=== PATIENT | female | born 1965 | race Caucasian/White ===

== ENCOUNTER → 2016-12-09 | Outpatient (CLI) | payer OTHER ==
--- NOTE | 2016-12-09 11:26 | US ---
EXAMINATION TYPE: US liver DATE OF EXAM: 12/09/2016 11:02 AM COMPARISON: Complete abdominal ultrasound August 18, 2011. CLINICAL HISTORY: B18.2 Hep C. Nausea EXAM MEASUREMENTS: Liver Length: 16.2 cm Gallbladder Wall: 0.2 cm CBD: 0.4 cm Right Kidney: 10.9 x 4.0 x 4.1 cm TECHNOLOGIST IMPRESSION: Pancreas: visualized portions appear wnl Liver: appears wnl Gallbladder: no evidence of stones Evidence for sonographic Gustafson's sign: no CBD: wnl Right Kidney: no evidence of hydronephrosis or mass IMPRESSION: No worrisome intrahepatic mass or intrahepatic ductal dilatation is seen.
[2016-12-09 11:57] LABS: Bilirubin, Delta 0.8 mg/dL (0.0-0.2); Total Bilirubin 1.6 mg/dL (0.2-1.3); Total Protein 7.9 g/dL (6.3-8.2)
[2016-12-14 08:21] LABS: HCV Qualitative Result DETECTED (Not detected)
== END | disposition home or self-care (01) ==
LOC: RADUSWWP 10:42
PROVIDERS: ATTEND Internal Medicine Gastroenterology
DX: B18.2 Chronic viral hepatitis C (principal)
CPT/HCPCS: 76705; 80076; 82105; 87522; 87902

== ENCOUNTER 2017-01-16 07:38 | Inpatient (IN) | payer OTHER ==
[2017-01-16] MEDS ORDERED: SODIUM CHLORIDE 0.9% 2,000 ML IV STA (08:20)
[2017-01-16] MEDS ORDERED: SODIUM CHLORIDE 0.9% 1,000 ML IV STA (08:20)
[2017-01-16] MEDS ORDERED: ONDANSETRON 4 MG/2 ML VIAL IVP STA (08:32)
[2017-01-16] MEDS ORDERED: KETOROLAC 30 MG/ML 1 ML VIAL IVP STA (08:32)
--- NOTE | 2017-01-16 08:42 | ED ---
Chest Pain HPI - General Chief Complaint: Chest Pain Stated Complaint: Chest pain Time Seen by Provider: 01/16/17 08:12 Source: patient, RN notes reviewed Mode of arrival: wheelchair Limitations: no limitations - History of Present Illness Initial Comments: This is a 51-year-old female history of COPD who states she had the onset over last 4 days of nausea and vomiting almost every 2 hours. She's had muscle spasms and cramps in her legs she claims is some neck and jaw pain she also states she is pain in the left side of her chest just below the breast 6/10 in severity at its aching in nature. She also complains some abdominal pain mostly upper abdomen. She denies any diarrhea and constipation. She does not believe she is eating any bad food and has not been around anyone that has been sick recently. She has no prior abdominal history with respect to surgery ulcers known gallbladder disease. She does smoke cigarettes she only occasionally drinks. She was concerned she was having symptoms of a heart attack because of nausea vomiting and some low back pain. She has no personal history of heart disease though her mother does. MD Complaint: chest pain, other - Related Data Home Medications Medication Instructions Recorded Confirmed Chlorthalidone 25 mg PO DAILY 02/04/16 06/06/16 Ergocalciferol (Vitamin D2) 100,000 unit PO QMONTH 02/04/16 06/06/16 [Drisdol] HYDROcodone/APAP 10-325MG [[place] 1 tab PO TID 02/04/16 06/06/16 10-325] Lisinopril [Zestril] 20 mg PO DAILY 02/04/16 06/06/16 Omeprazole [PriLOSEC] 20 mg PO DAILY 02/04/16 06/06/16 PARoxetine [Paxil] 20 mg PO DAILY 02/04/16 06/06/16 Potassium Chloride ER [K-Dur 20] 20 meq PO DAILY 02/04/16 06/06/16 QUEtiapine [SEROquel] 50 mg PO HS 02/04/16 06/06/16 amLODIPine [Norvasc] 10 mg PO DAILY 02/04/16 06/06/16 risperiDONE [RisperDAL] 1 mg PO DAILY 06/06/16 06/06/16 Previous Rx's Medication Instructions Recorded ALPRAZolam [Xanax] 0.5 mg PO TID PRN #0 tab 02/06/16 Cephalexin [Keflex] 500 mg PO Q6HR #40 cap 06/06/16 Permethrin 5% Cream [Elimite] 1 applic TOPICAL ONCE #60 gram 06/06/16 hydrOXYzine HCL [Atarax] 25 mg PO TID PRN #15 tab 06/06/16 Ondansetron Odt [Zofran ODT] 4 mg PO Q8HR PRN #15 tab 08/02/16 hydrOXYzine PAMOATE [Vistaril] 1 - 2 tab PO Q6H #30 capsule 08/02/16 Allergies Allergy/AdvReac Type Severity Reaction Status Date / Time No Known Allergies Allergy Verified 01/16/17 08:01 Review of Systems ROS Statement: Those systems with pertinent positive or pertinent negative responses have been documented in the HPI. ROS Other: All systems not noted in ROS Statement are negative. EKG Findings - EKG Results: EKG: interpreted by MARIYA, WNL, sinus rhythm, normal axis, normal QRS, normal ST/ T, no acute changes (Normal sinus rhythm a rate of 83 RI interval 166 QRS duration 96 QT/QTC of 392/[address]-T wave changes.) Past Medical History Past Medical History: COPD, Hypertension Additional Past Medical History / Comment(s): pt stated" i had a seizure on tuesday(no previous hx of seizures) and since then i've been hearing voices at night and during the day i hear buzzing tones like a phone in my ears" History of Any Multi-Drug Resistant Organisms: None Reported Past Surgical History: Tubal Ligation Past Anesthesia/Blood Transfusion Reactions: No Reported Reaction Additional Past Anesthesia/Blood Transfusion Reaction / Comment(s): clausterphobia Past Psychological History: Anxiety, Depression Additional Psychological History / Comment(s): pt currently not working,in past worked in a factory. states currently homeless, since may 2015 has been bouncing back and forth between friends houses. Smoking Status: Current every day smoker Past Alcohol Use History: Abuse Additional Past Alcohol Use History / Comment(s): started smoking at age 12, used to smoke 1 ppd but has cut down to 1/2 ppd. Past Drug Use History: None Reported - Past Family History Father History Unknown: Yes Family Medical History: Cancer Additional Family Medical History / Comment(s): unk type Mother History Unknown: Yes Family Medical History: AFIB, Congestive Heart Failure (CHF), Myocardial Infarction ([place]), Seizure Disorder General Exam - General Exam Comments Initial Comments: This is a well-developed well-nourished awake alert oriented 3 female Limitations: no limitations General appearance: alert, in no apparent distress Head exam: Present: atraumatic, normocephalic, normal inspection Eye exam: Present: normal appearance, PERRL, EOMI. Absent: scleral icterus, conjunctival injection, periorbital swelling ENT exam: Present: mucous membranes dry Neck exam: Present: normal inspection, tenderness (Mild paraspinous trapezius tenderness no spinous process tenderness no meningeal signs), full ROM. Absent : meningismus, lymphadenopathy Respiratory exam: Present: normal lung sounds bilaterally, chest wall tenderness (Reproducible tenderness palpation over the left lower costosternal junction no step-off or crepitation). Absent: respiratory distress, wheezes, rales, rhonchi, stridor Cardiovascular Exam: Present: regular rate, normal rhythm, normal heart sounds. Absent: systolic murmur, diastolic murmur, rubs, gallop, clicks GI/Abdominal exam: Present: soft, tenderness (Mild tennis palpation of the right upper quadrant and epigastrium with no guarding rebound masses or bruits) , normal bowel sounds. Absent: distended, guarding, rebound, rigid Rectal exam: Present: deferred Extremities exam: Present: normal inspection, full ROM, normal capillary refill. Absent: tenderness, pedal edema, joint swelling, calf tenderness Back exam: Present: normal inspection Neurological exam: Present: alert, oriented X3, CN II-XII intact Psychiatric exam: Present: normal affect, normal mood Skin exam: Present: warm, dry, intact, normal color. Absent: rash Course Vital Signs 01/16/17 01/16/17 07:59 09:26 Temperature 98.2 F Pulse Rate 90 81 Respiratory 20 18 Rate Blood Pressure 139/90 108/58 O2 Sat by Pulse 98 95 Oximetry - Reevaluation(s) Reevaluation #1: 01/16/17 10:38 I did reevaluate the patient she remains somewhat lethargic still awake and alert. Reevaluation #2: 01/16/17 10:38 I did discuss the case with Dr. Osman as well as with Dr. Santa. The patient will be started on 3% saline Reevaluation #3: 01/16/17 10:39 Dr. Angelo did come the emergency department to see the patient. Patient will be started on 3% saline at 40 mL an hour with a redraw at 1 PM with notification of Dr. Angelo Chest Pain MDM - MDM I did review the initial imaging and reports ultrasound was pending at this time x-rays are unremarkable. I did discuss findings with the patient and her sodium level is 118 she has had elevated liver enzymes and bilirubin. She does have a known history of hepatitis C she will be admitted for evaluation and hydration. Critical Care Time Critical Care Time: Yes Critical Care Time: 32 minutes of critical care time which includes initial history physical and evaluation the patient with labs and x-rays. Evaluation of the results. Reevaluation the patient response to therapy thus far. Discussion with multiple physicians regarding the disposition and placement of the patient. Review of old charting that was available and documentation of the above. Disposition Clinical Impression: Gastritis, Hyponatremia syndrome, Dehydration Disposition: ADMITTED IP TO THIS [facility] Condition: Serious Referrals: Carlos Manuel Osman MD [Primary Care Provider] - 1-2 days Time of Disposition: 09:45
[2017-01-16 08:57] LABS: Basophils % (A) 0 %; CH 34.3; CHCM 37.3; Eosinophils % (A) 1 %; HDW 2.54; HGB 15.9 gm/dL (11.4-16.0); Luc # (Auto) 0.15; Luc % (Auto) 2; Lymphocytes # (A) 0.9 k/uL (1.0-4.8); Lymphocytes % (A) 15 %; MCH 33.3 pg (25.0-35.0); MCHC 36.1 g/dL (31.0-37.0); MCV 92.3 fL (80.0-100.0); Mean Platelet Volume 8.8; Monocytes # (A) 0.5 k/uL (0-1.0); Monocytes % (A) 8 %; Neutrophils # (A) 4.7 k/uL (1.3-7.7); Neutrophils % (A) 74 %; RBC 4.76 m/uL (3.80-5.40); RDW 13.6 % (11.5-15.5); WBC 6.3 k/uL (3.8-10.6); WBC (Perox) 6.23
[2017-01-16 09:01] LABS: Appearance,Urine Cloudy (Clear); Bacteria,Urine Rare /hpf; Bilirubin,Urine Negative (Negative); Glucose,Urine (UA) Negative (Negative); Ketones,Urine Negative (Negative); Leukocyte Esterase,Urine Negative (Negative); Mucus,Urine Rare /hpf; Nitrite,Urine Negative (Negative); Particle Count 1930; Protein,Urine Negative (Negative); RBC,Urine <1 /hpf (0-5); Specific Gravity,Urine 1.007 (1.001-1.035); Squamous Epithelial Cell,Urine 7 /hpf (0-4); UA Billing (MACRO vs. MICRO) MICRO; Urobilinogen,Urine <2.0 mg/dL (<2.0); WBC,Urine 1 /hpf (0-5)
[2017-01-16 09:07] LABS: ALT 222 U/L (9-52); AST 303 U/L (14-36); Alkaline Phosphatase 110 U/L (38-126); Amylase 76 U/L (30-110); Anion Gap 9 mmol/L; Blood Urea Nitrogen 9 mg/dL (7-17); Calcium 8.4 mg/dL (8.4-10.2); Carbon Dioxide 25 mmol/L (22-30); Chloride 84 mmol/L (98-107); Glucose 114 mg/dL (74-99); Non-African American GFR(MDRD) >60 (>60 ml/min/1.73 sqM); Potassium 3.6 mmol/L (3.5-5.1); Total Bilirubin 2.9 mg/dL (0.2-1.3); Total Protein 8.1 g/dL (6.3-8.2)
[2017-01-16 09:10] LABS: Sodium 118 mmol/L (137-145)
[2017-01-16 09:18] LABS: Creatine Kinase 496 U/L (30-135)
--- NOTE | 2017-01-16 09:18 | XR ---
EXAMINATION TYPE: XR KUB DATE OF EXAM: 01/16/2017 8:56 AM COMPARISON: NONE INDICATION: Abdomen pain TECHNIQUE: Single view abdomen upright view FINDINGS: Nonspecific bowel gas is present. Air is within the colon. Psoas margins are normal. No organomegaly is present. No suspicious calcifications are evident. No free air is identified. IMPRESSION: 1. Nonspecific abdomen.
--- NOTE | 2017-01-16 09:30 | XR ---
EXAMINATION TYPE: XR chest 2V DATE OF EXAM: 01/16/2017 8:56 AM COMPARISON: NONE INDICATION: Abdomen pain TECHNIQUE: 2 view chest FINDINGS: The heart size is normal. The pulmonary vasculature is normal. The lungs are clear. IMPRESSION: 1. No acute pulmonary process.
[2017-01-16 09:31] LABS: Troponin I <0.012 ng/mL (0.000-0.034)
[2017-01-16 09:37] LABS: Creatine Kinase MB 7.6 ng/mL (0.0-2.4)
--- NOTE | 2017-01-16 10:30 | US ---
EXAMINATION TYPE: US gallbladder DATE OF EXAM: 01/16/2017 10:13 AM COMPARISON: NONE CLINICAL HISTORY: Pain. Vomiting, RUQ pain, Hepatitis C EXAM MEASUREMENTS: Liver Length: 17.6 cm Gallbladder Wall: 0.2 cm CBD: 0.3 cm Right Kidney: 11.3 x 4.2 x 5.4 cm Pancreas: limited evaluation due to overlying bowel content, distal talus not well visualized. Liver: appears wnl , mild hepatomegaly at 17.6 cm may be present. Gallbladder: no evidence of stones Evidence for sonographic Gustafson's sign: No CBD: visualized portion appears wnl Right Kidney: no evidence of hydronephrosis IMPRESSION: 1. No suspicious acute changes. Liver is slightly enlarged.
[2017-01-16] MEDS ORDERED: NALOXONE 0.4 MG/ML 1 ML VIAL IV PRN (10:42)
[2017-01-16] MEDS ORDERED: ONDANSETRON 4 MG/2 ML VIAL IVP PRN (10:47)
[2017-01-16] MEDS ORDERED: SODIUM CHLORIDE 3%(HYPERTONIC) 500 ML IV ONE (11:00)
[2017-01-16 11:37] LABS: Glucose,Whole Blood 120 mg/dL (75-99)
[2017-01-16 13:03] VITALS: BMI 41.2
[2017-01-16] MEDS ORDERED: SODIUM CHLORIDE 0.9% 1,000 ML IV SCH (14:15)
[2017-01-16] MEDS: HYDROcodone/APAP 5-325MG 1 EACH TAB PO PRN (18:38)
[2017-01-16] MEDS: ALPRAZolam 0.25 MG TAB PO PRN (18:39)
--- NOTE | 2017-01-16 19:24 | P.NPCON ---
History of Present Illness - Reason for Consult hyponatremia - History of Present Illness Reason for consultation: Hyponatremia History of present illness: Patient is a 51 y/o F seen in renal consultation for hyponatremia. Patient presented to the hospital with vomiting and diarrhea going on for the past 3-4 days. States her oral intake was poor. Denies drinking excess amounts of water. Her sodium level on admission was 118. She was started on 3% saline in the ED and repeat sodium is up to 122. She is now on 0.9% saline and 3% has been discontinued. She hasn't had any diarrhea or vomiting while in the hospital. She denies any fever or chills. Denies chest pain or shortness or breath. She is awake and alert. Hemodynamically she is stable. In terms of home medications , she does admit to taking chlorthalidone. No other complaints at this time. She denies any history of renal disease. GFR is at baseline. Vitals: stable. GENERAL: Atraumatic, well-nourished. HEENT: No JVD noted. Mucus membranes moist. HEART: Regular rate or rhythm, no murmurs or gallops. LUNGS: Clear to auscultation, no rhonchi or wheezes. ABDOMEN: Soft, non-tender, no distension. EXTREMITIES: No pitting edema. Past Medical History Past Medical History: COPD, Hypertension Additional Past Medical History / Comment(s): lower back pain from previous injury History of Any Multi-Drug Resistant Organisms: None Reported Past Surgical History: Tubal Ligation Past Anesthesia/Blood Transfusion Reactions: No Reported Reaction Additional Past Anesthesia/Blood Transfusion Reaction / Comment(s): clausterphobia Past Psychological History: Anxiety, Depression Additional Psychological History / Comment(s): . Smoking Status: Current every day smoker Past Alcohol Use History: None Reported Additional Past Alcohol Use History / Comment(s): started smoking at age 12, used to smoke 1 ppd but has cut down to 1/2 ppd. Past Drug Use History: None Reported - Past Family History Father History Unknown: Yes Family Medical History: Cancer Additional Family Medical History / Comment(s): unk type Mother History Unknown: Yes Family Medical History: AFIB, Congestive Heart Failure (CHF), Myocardial Infarction ([place]), Seizure Disorder Medications and Allergies Home Medications Medication Instructions Recorded Confirmed Type Chlorthalidone 25 mg PO DAILY 02/04/16 01/16/17 History Omeprazole [PriLOSEC] 20 mg PO DAILY 02/04/16 01/16/17 History PARoxetine [Paxil] 20 mg PO DAILY 02/04/16 01/16/17 History Potassium Chloride ER [K-Dur 20] 20 meq PO DAILY 02/04/16 01/16/17 History risperiDONE [RisperDAL] 1 mg PO DAILY 06/06/16 01/16/17 History HYDROcodone/APAP 5-325MG [[place] 1 tab PO Q8H PRN 01/16/17 01/16/17 History 5-325] Lisinopril 40 mg PO DAILY 01/16/17 01/16/17 History Allergies Allergy/AdvReac Type Severity Reaction Status Date / Time bupropion [From Wellbutrin] Allergy seizure Verified 01/16/17 13:13 Physical Exam Vitals: Vital Signs Temp Pulse Resp BP Pulse Ox 01/16/17 18:00 78 15 110/67 96 01/16/17 17:00 74 15 119/65 95 01/16/17 16:00 98.0 F 81 16 119/65 95 01/16/17 15:00 88 20 115/72 95 01/16/17 14:00 81 19 95 01/16/17 13:00 78 16 112/65 97 01/16/17 12:00 97.8 F 81 20 111/69 96 01/16/17 11:00 87 18 160/79 95 Intake and Output 01/16/17 01/16/17 01/16/17 06:59 14:59 22:59 Intake Total 2090 740 Output Total 215 950 Balance 1875 -210 Intake: IV 1999 Invasive Line 1 1999 Amount of Fluid Infused ( 10 ml) Intake, IV Titration 80 240 Amount Sodium Chloride 0.9% 1, 240 000 ml @ 60 mls/hr IV . [id number] [facility] Rx#:[id number] Sodium Chloride 3%( 80 Hypertonic) 500 ml @ 40 mls/hr IV .[id number] [facility] Rx #:[id number] Oral 500 Output: Urine 215 950 Uretheral ([place]) 25 Other: Voiding Method Indwelling Catheter Indwelling Catheter Weight 105.5 kg Patient Weight 01/17/17 06:59 Weight 105.5 kg Results - Lab Results Most recent lab results Calcium 8.4 mg/dL (8.4-10.2) 01/16/17 08:37 01/16/17 08:37 01/16/17 13:01 Assessment and Plan Plan: Assessment: #1. Hypovolemic hyponatremia secondary to vomiting and diarrhea and further worsened with chlorthalidone. Sodium level 118 on admission and improved to 122 after 2 hours of 3% saline. #2. Benign hypertension. Controlled. Plan: Continue 0.9% saline to be run at 60 cc/hr. Repeat sodium level at 7 PM today. Hold diuretics. Check urine sodium, potassium, serum and urine osmolality. Maintain martin with strict Is and Os. Goal rate of sodium correction 8 meq per 24 hrs. Thank you for the consultation. I will continue to follow the patient with you during her hospital stay.
[2017-01-16 19:48] LABS: Anion Gap 6 mmol/L; Blood Urea Nitrogen 10 mg/dL (7-17); Carbon Dioxide 27 mmol/L (22-30); Chloride 93 mmol/L (98-107); Glucose 123 mg/dL (74-99); Non-African American GFR(MDRD) >60 (>60 ml/min/1.73 sqM); Sodium 126 mmol/L (137-145)
[2017-01-16 20:06] LABS: Potassium 3.4 mmol/L (3.5-5.1)
[2017-01-16] MEDS ORDERED: DESMOPRESSIN INJ 4 MCG/ML AMP IV ONE (20:42)
[2017-01-16] MEDS: PANTOPRAZOLE 40 MG/10 ML VIAL IV SCH (21:17)
[2017-01-17 04:33] LABS: Basophils % (A) 0 %; CH 33.4; CHCM 35.6; Eosinophils # (A) 0.1 k/uL (0-0.7); Eosinophils % (A) 1 %; HCT 38.9 % (34.0-46.0); HDW 2.49; HGB 13.7 gm/dL (11.4-16.0); Luc # (Auto) 0.12; Luc % (Auto) 3; Lymphocytes # (A) 1.2 k/uL (1.0-4.8); Lymphocytes % (A) 29 %; MCH 33.2 pg (25.0-35.0); MCHC 35.2 g/dL (31.0-37.0); MCV 94.2 fL (80.0-100.0); Mean Platelet Volume 8.5; Monocytes # (A) 0.4 k/uL (0-1.0); Monocytes % (A) 9 %; Neutrophils # (A) 2.3 k/uL (1.3-7.7); Neutrophils % (A) 57 %; RBC 4.13 m/uL (3.80-5.40); RDW 13.4 % (11.5-15.5); WBC (Perox) 3.98
[2017-01-17 05:08] LABS: Anion Gap 3 mmol/L; Blood Urea Nitrogen 10 mg/dL (7-17); Calcium 7.9 mg/dL (8.4-10.2); Carbon Dioxide 28 mmol/L (22-30); Chloride 94 mmol/L (98-107); Glucose 97 mg/dL (74-99); Magnesium 1.8 mg/dL (1.6-2.3); Non-African American GFR(MDRD) >60 (>60 ml/min/1.73 sqM); Sodium 125 mmol/L (137-145)
[2017-01-17 05:21] LABS: Potassium 3.7 mmol/L (3.5-5.1)
[2017-01-17] MEDS ORDERED: Potassium Replacement Protocol 1 EACH MISC MISCELLANE PRN (05:22)
[2017-01-17] MEDS ORDERED: Magnesium Replacement Protocol 1 EACH MISC MISCELLANE PRN (05:23)
[2017-01-17 05:35] LABS: Manual Review Performed
[2017-01-17] MEDS: MAGNESIUM SULFATE-D5W PMX 1 GM in DEXTROSE/WATER 1 100ML.BAG IVPB SCH ×2 (05:48→07:04)
[2017-01-17] MEDS: HYDROcodone/APAP 5-325MG 1 EACH TAB PO PRN ×2 (05:55→16:15)
[2017-01-17] MEDS: ALPRAZolam 0.25 MG TAB PO PRN ×3 (05:55→22:32)
[2017-01-17] MEDS ORDERED: POTASSIUM CHLORIDE ER 20 MEQ TAB.ER PO SCH (06:00)
[2017-01-17] MEDS: PANTOPRAZOLE 40 MG/10 ML VIAL IV SCH (07:57)
--- NOTE | 2017-01-17 09:55 | HP ---
DATE OF ADMISSION: 01/16/2017 CHIEF COMPLAINT: Intractable nausea and vomiting and hyponatremia. HISTORY OF PRESENT ILLNESS: This is the first admission for this 51-year-old white female who started to have nausea and vomiting several days ago. She he no hematemesis, significant pain, fever, chills, etc. She had no diarrhea, melena, hematochezia, etc. She came to the emergency room because she could not stop vomiting, and her sodium was 118, and she is admitted. REVIEW OF SYSTEMS: She has had no headaches, shortness of breath, cough, hemoptysis, urinary complaints etc. Past medical history, family history, and personal and social histories are otherwise unremarkable noncontributory. She takes: 1. [place]. 2. Xanax. 3. Risperdal. 4. Potassium. 5. Lasix. 6. Paxil. The remainder of her history is unremarkable. PHYSICAL EXAMINATION: Blood pressure 111/64 with a pulse of 91, respirations of 35 and she is afebrile. In general, she appeared to be pale and dry. HEENT: Head, ears, eyes, nose, mouth, and throat were normal. NECK: Neck veins not distended. Thyroid was not enlarged. CHEST: Clear. CARDIAC: Normal. ABDOMEN: Soft and nontender. Bowel sounds are present. EXTREMITIES: Normal. NEUROLOGICAL: She is intact. IMPRESSION: 1. Dehydration. 2. Hyponatremia. 3. Gastroenteritis. 4. History of low back pain. 5. Arthritis. PLAN: 1. Bed rest. 2. IV fluids. 3. Correct electrolyte imbalance. 4. Control nausea and vomiting.
--- NOTE | 2017-01-17 10:41 | P.PN ---
Subjective Patient is seen in follow-up for hyponatremia. Sodium level was 118 at the time of admission on January 16 around 8 AM. Patient presented with nausea vomiting and diarrhea going on for the last few days. This appears to have resolved and she is currently tolerating oral intake well. Her GFR is at baseline. She was taking chlorthalidone at home as well. Her sodium level is up to 126 this morning. She is nonoliguric. No active complaints at this time. Vital signs are stable. General: The patient appeared well nourished and normally developed. HEENT: Head exam is unremarkable. Neck is without jugular venous distension. LUNGS: Lungs are clear to auscultation and percussion. Breath sounds decreased. HEART: Rate and Rhythm are regular. First and second heart sounds normal. No murmurs, rubs or gallops. ABDOMEN: Abdominal exam reveals normal bowel sounds. Non-tender and non- distended. No evidence of peritonitis. EXTREMITITES: No clubbing, cyanosis, or edema. Objective - Vital Signs Vital signs: Vital Signs Temp 98.0 F 01/17/17 08:00 Pulse 66 01/17/17 10:00 Resp 20 01/17/17 10:00 BP 107/68 01/17/17 10:00 Pulse Ox 97 01/17/17 10:00 Intake & Output 01/16/17 01/17/17 01/17/17 18:59 06:59 18:59 Intake Total 2830 960 220 Output Total 1165 1315 285 Balance 1665 -355 -65 Weight 105.5 kg 104.9 kg Intake: IV 2000 Invasive Line 1 2000 Amount of Fluid Infused ( 10 ml) Intake, IV Titration 320 60 220 Amount Magnesium Sulfate-D5w Pmx 100 1 gm In Dextrose/Water 1 100ml.bag @ 100 mls/hr IVPB Q1H [facility] Rx#: [id number] Sodium Chloride 0.9% 1, 240 60 120 000 ml @ 60 mls/hr IV . [id number] [facility] Rx#:[id number] Sodium Chloride 3%( 80 Hypertonic) 500 ml @ 40 mls/hr IV .[id number] ONE Rx #:[id number] Oral 500 900 Output: Urine 1165 1315 285 Uretheral ([place]) 25 Other: Voiding Method Indwelling Catheter Indwelling Catheter Indwelling Catheter - Labs CBC & Chem 7: 01/17/17 03:53 01/17/17 08:58 Labs: Abnormal Lab Results - Last 24 Hours (Table) 01/16/17 01/16/17 01/16/17 Range/Units 11:35 13:01 19:20 Plt Count (150-450) k/uL Sodium 122 L 126 L (137-145) mmol/L Potassium 3.4 L (3.5-5.1) mmol/L Chloride 93 L (98-107) mmol/L Glucose 123 H (74-99) mg/dL POC Glucose (mg/dL) 120 H (75-99) mg/dL Osmolality 264 L (280-301) mosm/kg Calcium 8.0 L (8.4-10.2) mg/dL Ur Random Sodium (30-90) mmol/L 01/17/17 01/17/17 01/17/17 Range/Units 01:43 03:53 03:53 Plt Count 93 L (150-450) k/uL Sodium 126 L 125 L (137-145) mmol/L Potassium (3.5-5.1) mmol/L Chloride 94 L (98-107) mmol/L Glucose (74-99) mg/dL POC Glucose (mg/dL) (75-99) mg/dL Osmolality (280-301) mosm/kg Calcium 7.9 L (8.4-10.2) mg/dL Ur Random Sodium (30-90) mmol/L 01/17/17 01/17/17 Range/Units 04:30 08:58 Plt Count (150-450) k/uL Sodium 126 L (137-145) mmol/L Potassium (3.5-5.1) mmol/L Chloride (98-107) mmol/L Glucose (74-99) mg/dL POC Glucose (mg/dL) (75-99) mg/dL Osmolality (280-301) mosm/kg Calcium (8.4-10.2) mg/dL Ur Random Sodium 163 H (30-90) mmol/L Assessment and Plan Plan: Assessment: #1. Hypovolemic hyponatremia secondary to vomiting and diarrhea and further worsened with chlorthalidone. Sodium level 118 on admission and improved to 126 this morning. #2. Benign hypertension. Controlled. Plan: Resume 0.9% saline to be run at 50 cc/hr. Repeat sodium level at 4 PM today. Hold diuretics. Stable to be transferred out of the intensive care unit from nephrology standpoint.
[2017-01-17] MEDS ORDERED: SODIUM CHLORIDE 0.9% 1,000 ML IV SCH (10:45)
[2017-01-17] MEDS: PARoxetine 20 MG TAB PO SCH (13:55)
[2017-01-17 16:58] VITALS: RESP 16
--- NOTE | 2017-01-17 18:53 | P.CNPUL ---
History of Present Illness Consult date: 01/17/17 Chief complaint: Hyponatremia History of present illness: 51-year-old female patient got moved to the intensive care unit because of profound hyponatremia. She presented emergency department with a sodium level CXVIII. Apparently this patient was having issues with vomiting and nausea for the past 24-48 hours. She'll follow-up on multiple occasions and ultimately she was dry heaving. She also had loose watery bowel movements. Upon further inquiry, the patient tells that she ate a outdated salad. Her got slightly sick and she became progressively more sick and she came to the hospital where she was found to be profoundly hyponatremic with a sodium level of 118. No change in mental status. She was started on 3% normal saline and her sodium level came up to 122. At that point the hypertonic saline was discontinued and the patient was placed on normal saline. Her sodium level came up to 126. Currently she is off IV fluids. Neurologically she is doing well. No change in mental status. No headaches. No focal neurological deficits. No abdominal pain. Nausea vomiting has subsided significantly. She is afebrile. No bloody bowel movements. No other complaints otherwise for now. I saw this patient in the intensive care unit. She was quite stable. I made recommendations to move this patient to the medical floor. Note that the patient was also on hydrochlorothiazide that got discontinued. Review of Systems A 12 point review of system was done. The patient had no focal neurological deficits. No slurred speech. No seizure activity. No chest pain. No cough or sputum production. No skin rashes. No arthritis. No falls. No wounds. No trauma. No angina. No bloody urine output or stool. Past Medical History Past Medical History: COPD, Hypertension Additional Past Medical History / Comment(s): lower back pain from previous injury History of Any Multi-Drug Resistant Organisms: None Reported Past Surgical History: Tubal Ligation Past Anesthesia/Blood Transfusion Reactions: No Reported Reaction Additional Past Anesthesia/Blood Transfusion Reaction / Comment(s): clausterphobia Past Psychological History: Anxiety, Depression Additional Psychological History / Comment(s): . Smoking Status: Current every day smoker Past Alcohol Use History: None Reported Additional Past Alcohol Use History / Comment(s): started smoking at age 12, used to smoke 1 ppd but has cut down to 1/2 ppd. Past Drug Use History: None Reported - Past Family History Father History Unknown: Yes Family Medical History: Cancer Additional Family Medical History / Comment(s): unk type Mother History Unknown: Yes Family Medical History: AFIB, Congestive Heart Failure (CHF), Myocardial Infarction ([place]), Seizure Disorder Medications and Allergies Home Medications Medication Instructions Recorded Confirmed Type Chlorthalidone 25 mg PO DAILY 02/04/16 01/16/17 History Omeprazole [PriLOSEC] 20 mg PO DAILY 02/04/16 01/16/17 History PARoxetine [Paxil] 20 mg PO DAILY 02/04/16 01/16/17 History Potassium Chloride ER [K-Dur 20] 20 meq PO DAILY 02/04/16 01/16/17 History risperiDONE [RisperDAL] 1 mg PO DAILY 06/06/16 01/16/17 History HYDROcodone/APAP 5-325MG [[place] 1 tab PO Q8H PRN 01/16/17 01/16/17 History 5-325] Lisinopril 40 mg PO DAILY 01/16/17 01/16/17 History Allergies Allergy/AdvReac Type Severity Reaction Status Date / Time bupropion [From Wellbutrin] Allergy seizure Verified 01/16/17 13:13 Physical Exam Vitals: Vital Signs Temp Pulse Pulse Resp BP BP Pulse Ox 01/17/17 15:00 97.2 F L 62 16 107/58 96 01/17/17 11:00 81 19 107/68 95 01/17/17 10:00 66 20 107/68 97 01/17/17 09:00 80 15 96/56 95 01/17/17 08:00 98.0 F 73 16 96/56 96 01/17/17 07:00 68 18 132/64 95 01/17/17 06:00 96 20 132/64 98 01/17/17 05:00 64 22 119/60 95 01/17/17 04:00 98.2 F 66 18 108/59 97 01/17/17 03:00 77 98 H 99/56 98 01/17/17 02:00 77 20 99/56 98 01/17/17 01:00 63 20 91/51 96 01/17/17 00:05 63 18 92/55 99 01/17/17 00:00 98.0 F 65 16 92/55 99 01/16/17 23:00 68 16 93/48 04/23/17 22:00 82 18 91/57 01/16/17 21:00 85 13 97/55 99 01/16/17 20:00 98.5 F 85 32 H 115/62 98 01/16/17 19:00 81 17 105/70 96 Intake and Output 01/17/17 01/17/17 01/17/17 06:59 14:59 22:59 Intake Total 400 820 Output Total 765 345 700 Balance -365 475 -700 Intake: Intake, IV Titration 280 Amount Magnesium Sulfate-D5w Pmx 100 1 gm In Dextrose/Water 1 100ml.bag @ 100 mls/hr IVPB Q1H [facility] Rx#: [id number] Sodium Chloride 0.9% 1, 180 000 ml @ 60 mls/hr IV . [id number] [facility] Rx#:[id number] Oral 400 540 Output: Urine 765 345 700 Other: Voiding Method Indwelling Catheter Indwelling Catheter Indwelling Catheter Weight 104.9 kg The patient appeared well nourished and normally developed. Vital signs as documented. Head exam is unremarkable. No scleral icterus or corneal arcus noted. Neck is without jugular venous distension, thyromegaly, or carotid bruits. Carotid upstrokes are brisk bilaterally. Lungs are clear to auscultation and percussion. Cardiac exam reveals the PMI to be normally sized and situated. Rhythm is regular. First and second heart sounds normal. No murmurs, rubs or gallops. Abdominal exam reveals normal bowel sounds, no masses , no organomegaly and no aortic enlargement. Extremities are nonedematous and both femoral and pedal pulses are normal. Results - Laboratory Findings CBC and BMP: 01/17/17 03:53 01/17/17 15:33 Abnormal lab findings: Abnormal Labs 01/16/17 01/16/17 01/16/17 11:35 13:01 19:20 Plt Count Sodium 122 L 126 L Potassium 3.4 L Chloride 93 L Glucose 123 H POC Glucose (mg/dL) 120 H Osmolality 264 L Calcium 8.0 L Ur Random Sodium 01/17/17 01/17/17 01/17/17 01:43 03:53 03:53 Plt Count 93 L Sodium 126 L 125 L Potassium Chloride 94 L Glucose POC Glucose (mg/dL) Osmolality Calcium 7.9 L Ur Random Sodium 01/17/17 01/17/17 01/17/17 04:30 08:58 15:33 Plt Count Sodium 126 L 124 L Potassium Chloride Glucose POC Glucose (mg/dL) Osmolality Calcium Ur Random Sodium 163 H - Diagnostic Findings Chest x-ray: image reviewed Assessment and Plan Plan: Assessment 1 hypovolemic hyponatremia exacerbated further by the intake of chlorthalidone, recovering 2 nausea vomiting and diarrhea, rule out food poisoning 3 hypertension 4 smoking Plan Agree on this continued IV fluids. The patient can be moved out of the intensive care unit. Monitor the sodium level. No signs of any neurologic impairment from correction of hyponatremia. Keep the chlorthalidone on hold. We'll continue to follow.
[2017-01-17] MEDS ORDERED: risperiDONE 1 MG TAB PO SCH (21:00)
[2017-01-18] MEDS: PANTOPRAZOLE 40 MG/10 ML VIAL IV SCH ×2 (00:19→08:26)
[2017-01-18] MEDS: HYDROcodone/APAP 5-325MG 1 EACH TAB PO PRN ×2 (00:25→08:26)
[2017-01-18 01:44] LABS: Potassium 24 Hour,Urine 61.7 mmol/24 (25.0-125.0)
--- NOTE | 2017-01-18 06:35 | PN ---
DATE OF SERVICE: 01/17/2017 CHIEF COMPLAINT: Gastroenteritis and dehydration and electrolyte imbalance. HISTORY OF PRESENT ILLNESS: This lady is doing better. She is not as nauseated. We will advance her diet. PHYSICAL EXAM: Vital signs are normal. The chest is clear. The cardiac exam is normal. The abdomen is soft and nontender. IMPRESSION: 1. Viral gastroenteritis. 2. Dehydration. 3. Hyponatremia. PLAN: Repeat laboratory studies and advance diet and activity.
[2017-01-18 07:54] VITALS: BP 117/67; PULSE 72; TEMP 97.7
[2017-01-18] MEDS: PARoxetine 20 MG TAB PO SCH (08:25)
[2017-01-18 08:32] LABS: Anion Gap 4 mmol/L; Blood Urea Nitrogen 12 mg/dL (7-17); Calcium 8.4 mg/dL (8.4-10.2); Carbon Dioxide 31 mmol/L (22-30); Chloride 99 mmol/L (98-107); Glucose 96 mg/dL (74-99); Magnesium 1.8 mg/dL (1.6-2.3); Non-African American GFR(MDRD) >60 (>60 ml/min/1.73 sqM); Sodium 134 mmol/L (137-145)
[2017-01-18] MEDS ORDERED: POTASSIUM CHLORIDE ER 20 MEQ TAB.ER PO SCH (09:00)
[2017-01-18] MEDS ORDERED: LISINOPRIL 20 MG TAB PO SCH (09:00)
--- NOTE | 2017-01-18 11:27 | P.PN ---
Subjective Patient is seen in follow-up for hyponatremia. Sodium level was 118 at the time of admission on January 16 around 8 AM. Patient presented with nausea vomiting and diarrhea going on for the last few days. This appears to have resolved and she is currently tolerating oral intake well. Her GFR is at baseline. She was taking chlorthalidone at home as well. Her sodium level is up to 134 this morning. She is nonoliguric. No active complaints at this time. Vital signs are stable. General: The patient appeared well nourished and normally developed. HEENT: Head exam is unremarkable. Neck is without jugular venous distension. LUNGS: Lungs are clear to auscultation and percussion. Breath sounds decreased. HEART: Rate and Rhythm are regular. First and second heart sounds normal. No murmurs, rubs or gallops. ABDOMEN: Abdominal exam reveals normal bowel sounds. Non-tender and non- distended. No evidence of peritonitis. EXTREMITITES: No clubbing, cyanosis, or edema. Objective - Vital Signs Vital signs: Vital Signs Temp 97.7 F 01/18/17 07:00 Pulse 72 01/18/17 07:00 Resp 16 01/18/17 07:00 BP 117/67 01/18/17 07:00 Pulse Ox 96 01/18/17 07:00 Intake & Output 01/17/17 01/18/17 01/18/17 18:59 06:59 18:59 Intake Total 820 1320 Output Total 1045 1400 Balance -225 -80 Weight 104.9 kg Intake: Intake, IV Titration 280 Amount Magnesium Sulfate-D5w Pmx 100 1 gm In Dextrose/Water 1 100ml.bag @ 100 mls/hr IVPB Q1H [facility] Rx#: [id number] Sodium Chloride 0.9% 1, 180 000 ml @ 60 mls/hr IV . [id number] [facility] Rx#:[id number] Oral 540 1320 Output: Urine 1045 1400 [place]re[place] ([place]) 700 Other: Voiding Method Indwelling Catheter Indwelling Catheter Indwelling Catheter - Labs CBC & Chem 7: 01/17/17 03:53 01/18/17 07:29 Labs: Abnormal Lab Results - Last 24 Hours (Table) 01/17/17 01/17/17 01/18/17 Range/Units 00:01 15:33 07:29 Sodium 124 L 134 L (137-145) mmol/L Carbon Dioxide 31 H (22-30) mmol/L Ur 24 Hour Volume 2650 H (800-1800) mls Assessment and Plan Plan: Assessment: #1. Hypovolemic hyponatremia secondary to vomiting and diarrhea and further worsened with chlorthalidone. Sodium level 118 on admission and and has gradually improved to 134 this morning. #2. Benign hypertension. Controlled. Plan: Encourage oral intake. Avoid thiazide diuretics. Stable to be discharged home from nephrology standpoint.
--- NOTE | 2017-01-21 20:33 | DS ---
DATE OF ADMISSION: 01/16/2017 DATE OF DISCHARGE: 01/18/2017 CHIEF COMPLAINT: Nausea, vomiting, diarrhea, dehydration and hyponatremia. HISTORY OF PRESENT ILLNESS AND PHYSICAL EXAMINATION: Details of this lady's history and physical can be found in the initial workup. LABORATORY STUDIES: While she was in the hospital she had laboratory studies, details of which can be found in the laboratory section of her chart. COURSE IN THE HOSPITAL: After admission she was placed on bed rest, started on intravenous fluids, and sodium was brought back up. She had no further problems. She had no diarrhea, vomiting, etc., and she was doing well and it was felt that she could go home on January 18. She will go home on light activity about the house and her usual diet. She will be seen in the office in several days. FINAL DIAGNOSES: 1. Viral gastroenteritis with dehydration. 2. Hyponatremia. OPERATIONS: None. CONSULTATIONS: None. She is improved.
== END 2017-01-18 11:20 | disposition home or self-care (01) | DRG 641 ==
LOC: EC 07:38 → 6ICU 10:42 → 5MS5E 01-17 12:16
PROVIDERS: ADMIT Family Medicine; ATTEND Family Medicine
DX: E87.1 Hypo-osmolality and hyponatremia (principal); E86.0 Dehydration; I10 Essential (primary) hypertension; A08.4 Viral intestinal infection, unspecified; J44.9 Chronic obstructive pulmonary disease, unspecified; T50.2X5A Adverse effect of carbonic-anhydrase inhibitors, benzothiadiazides and other diuretics, initial encounter; F41.9 Anxiety disorder, unspecified; R74.0 Nonspecific elevation of levels of transaminase and lactic acid dehydrogenase [LDH]; R07.89 Other chest pain; R68.84 Jaw pain; E86.1 Hypovolemia; S39.92XS Unspecified injury of lower back, sequela; R07.9 Chest pain, unspecified; M19.90 Unspecified osteoarthritis, unspecified site; M62.838 Other muscle spasm; F32.9 Major depressive disorder, single episode, unspecified; F17.210 Nicotine dependence, cigarettes, uncomplicated; Z88.8 Allergy status to other drugs, medicaments and biological substances; Z86.19 Personal history of other infectious and parasitic diseases; Z79.891 Long term (current) use of opiate analgesic; Z98.51 Tubal ligation status; Z80.9 Family history of malignant neoplasm, unspecified; Z59.0 Homelessness; Z63.79 Other stressful life events affecting family and household; Z82.49 Family history of ischemic heart disease and other diseases of the circulatory system; Z82.0 Family history of epilepsy and other diseases of the nervous system; Z79.899 Other long term (current) drug therapy; Z56.0 Unemployment, unspecified
CPT/HCPCS: 36415; 71020; 74000; 76705; 80048; 80053; 81001; 81050; 82150; 82550; 82553; 83605; 83690; 83735; 83930; 83935; 84133; 84295; 84300; 84484; 85025; 87040; 93005; 96361; 96374; 96375; 99291

== ENCOUNTER → 2017-01-19 | Outpatient (CLI) | payer OTHER ==
--- NOTE | 2017-01-20 10:45 | MR ---
EXAMINATION TYPE: MR liver wo/w con DATE OF EXAM: 01/19/2017 12:01 PM COMPARISON: Gallbladder ultrasound 3 days ago. HISTORY: Chronic viral hepatitis C CONTRAST: Standard multiplanar, multisequence MRI departmental protocol utilizing 20 mL intravenous MultiHance gadolinium contrast. Exam is performed of the abdomen focusing on the liver. FINDINGS: LIVER/GB: Liver is normal in size. Gallbladder has distended margins. There are no intraluminal galls tones identified. No suspicious wall thickening is seen. No worrisome intrahepatic or extra hepatic b iliary dilatation is present. There is some heterogeneity of liver but postcontrast images show no wo rrisome solid or cystic intrahepatic mass. There is patent main portal vein and branch vessels. No vasquez spicious dilatation is seen. There are patent hepatic veins draining into IVC. OTHER: Spleen is mildly enlarged in size at 13.3 cm on long axis on coronal image 27. Lung bases are clear, there is no pleural or pericardial effusion seen. The pancreas and both adrenal glands are normal in size and appear grossly unremarkable. There is no concerning renal mass or hydr onephrosis seen bilaterally. There is no suspicious small or large bowel dilatation seen. Normal-appe aring appendix is seen from the cecum best on coronal images 16 through 18. No concerning abdominal f luid collection is present. There is some disc desiccation in lower lumbar levels. There is disc spac e narrowing with spurring at lumbosacral junction. Visualized portion of aorta and IVC are unremarkab le. IMPRESSION: Liver is normal in size, no worrisome intrahepatic mass or intrahepatic ductal dilatation is seen. Mi ld splenomegaly is noted otherwise unremarkable study.
== END ==
LOC: RADMRIMAIN 11:03
PROVIDERS: ATTEND Physician Assistant
DX: R16.1 Splenomegaly, not elsewhere classified (principal); B18.2 Chronic viral hepatitis C
CPT/HCPCS: 74183; A9577

== ENCOUNTER → 2017-05-02 | Outpatient (CLI) | payer OTHER ==
[2017-05-02 13:08] LABS: Basophils % (A) 1 %; CH 30.5; CHCM 31.3; Eosinophils # (A) 0.1 k/uL (0-0.7); Eosinophils % (A) 2 %; HCT 35.9 % (34.0-46.0); HDW 3.09; HGB 11.7 gm/dL (11.4-16.0); Hypochromasia Moderate; Luc # (Auto) 0.14; Luc % (Auto) 4; Lymphocytes # (A) 1.2 k/uL (1.0-4.8); Lymphocytes % (A) 33 %; MCH 31.9 pg (25.0-35.0); MCHC 32.6 g/dL (31.0-37.0); MCV 97.7 fL (80.0-100.0); Mean Platelet Volume 8.9; Monocytes # (A) 0.5 k/uL (0-1.0); Monocytes % (A) 14 %; Neutrophils # (A) 1.6 k/uL (1.3-7.7); Neutrophils % (A) 46 %; RBC 3.67 m/uL (3.80-5.40); RDW 13.5 % (11.5-15.5); WBC 3.5 k/uL (3.8-10.6); WBC (Perox) 3.11
[2017-05-02 13:19] LABS: ALT 83 U/L (9-52); AST 97 U/L (14-36); Alkaline Phosphatase 117 U/L (38-126); Anion Gap 5 mmol/L; Blood Urea Nitrogen 15 mg/dL (7-17); Calcium 8.2 mg/dL (8.4-10.2); Carbon Dioxide 24 mmol/L (22-30); Chloride 110 mmol/L (98-107); Glucose 88 mg/dL (74-99); Non-African American GFR(MDRD) >60 (>60 ml/min/1.73 sqM); Potassium 4.3 mmol/L (3.5-5.1); Sodium 139 mmol/L (137-145); Total Bilirubin 0.7 mg/dL (0.2-1.3); Total Protein 6.3 g/dL (6.3-8.2)
[2017-05-02 13:47] LABS: Manual Review Performed
== END | disposition home or self-care (01) ==
LOC: LABWHC1 12:45
PROVIDERS: ATTEND Internal Medicine Gastroenterology
DX: B18.2 Chronic viral hepatitis C (principal)
CPT/HCPCS: 36415; 80053; 82105; 85025

== ENCOUNTER → 2017-07-04 | Outpatient (CLI) | payer OTHER ==
[2017-07-05 14:24] LABS: LOG HCV IU/mL 5.71 (<1.08)
== END | disposition home or self-care (01) ==
LOC: LABWHC1 12:45
PROVIDERS: ATTEND Physician Assistant
DX: B18.2 Chronic viral hepatitis C (principal)
CPT/HCPCS: 36415; 87522

== ENCOUNTER → 2017-07-19 | Outpatient (CLI) | payer OTHER ==
--- NOTE | 2017-07-19 14:37 | XR ---
EXAMINATION TYPE: XR lumbosacral spine min 4V DATE OF EXAM: 07/19/2017 CLINICAL HISTORY: pain COMPARISON: 08/10/2011 TECHNIQUE: Frontal, lateral, and oblique images of the lumbar spine are obtained. FINDINGS: There are 5 lumbar type vertebral bodies identified. The lumbar spine shows satisfactory alignment without evidence of acute fracture or dislocation. Vertebral body heights are within normal limits. Moderate to severe degenerative narrowing at L5-S1 with mild narrowing at the L4-5. Overal l the appearance is stable. The overlying soft tissue appears unremarkable. IMPRESSION: No acute fracture or dislocation is seen in the lumbar spine.ICD 10 NO FRACTURE, INITIAL EVALUATION
== END | disposition home or self-care (01) ==
LOC: RADXRMAIN 14:05
PROVIDERS: ATTEND Family Medicine
DX: M54.5 Low back pain (principal)
CPT/HCPCS: 72110

== ENCOUNTER → 2017-09-14 | Outpatient (CLI) | payer OTHER ==
--- NOTE | 2017-09-15 07:12 | MM ---
Reason for exam: screening (asymptomatic). Last mammogram was performed 3 years and 7 months ago. Physical Findings: Nurse did not find any significant physical abnormalities on exam. MG Screening Mammo w CAD Bilateral CC and MLO view(s) were taken. Prior study comparison: February 27, 2014, mammogram, performed at [facility]. February 26, 2014, mammogram, performed at [facility]. There are scattered fibroglandular densities. There is no discrete abnormality. ASSESSMENT: Negative, BI-RAD 1 RECOMMENDATION: Routine screening mammogram of both breasts in 1 year.
== END | disposition home or self-care (01) ==
LOC: RADMAMWWP 10:27
PROVIDERS: ATTEND Internal Medicine
DX: Z12.31 Encounter for screening mammogram for malignant neoplasm of breast (principal)

== ENCOUNTER 2018-03-03 19:34 | Emergency (ER) | payer OTHER ==
[2018-03-03 19:42] VITALS: BP 159/90; PULSE 111; RESP 20; TEMP 98.4
[2018-03-03] MEDS ORDERED: MORPHINE SULFATE 2 MG/ML SYRINGE IV STA (19:58)
[2018-03-03] MEDS ORDERED: SODIUM CHLORIDE 0.9% 500 ML IV STA (19:58)
[2018-03-03] MEDS ORDERED: ONDANSETRON 4 MG/2 ML VIAL IVP STA (19:58)
--- NOTE | 2018-03-03 20:03 | ED ---
Abdominal Pain HPI - General Chief Complaint: Abdominal Pain Stated Complaint: Abd pain Time Seen by Provider: 03/03/18 19:50 Source: patient Mode of arrival: ambulatory Limitations: no limitations - History of Present Illness Initial Comments: 51-year-old female patient presents to the emergency department today for complaints of midepigastric and left upper quadrant abdominal pain. Patient states that couple of days ago she was smoking marijuana, states that she took a big inhale which caused her to cough violently. Patient states that at that time she had onset of the pain in her upper abdomen. Patient states now whenever she coughs, laughs, or engages the abdominal muscles the pain increases. She describes the pain as sharp. Patient states the pain has become severe nothing she is doing is helping. Patient states that she does drink alcohol. Denies any other street drug use. She denies any fevers or chills. Denies nausea or vomiting. States she has been having diarrhea but that is not uncommon for her. Patient denies any history of abdominal surgery. Patient denies any recent rash, shortness breath, chest pain, back pain, numbness, tingling, dizziness, weakness, hematuria, dysuria, urinary urgency, urinary frequency, headache, visual changes, or any other complaints. - Related Data Home Medications Medication Instructions Recorded Confirmed Cyanocobalamin (Vitamin B-12) 1,000 mcg PO DAILY 03/03/18 03/03/18 [Vitamin B-12] Previous Rx's Medication Instructions Recorded Cyclobenzaprine [Flexeril] 10 mg PO TID #15 tab 03/03/18 Allergies Allergy/AdvReac Type Severity Reaction Status Date / Time bupropion [From Wellbutrin] Allergy seizure Verified 03/03/18 19:42 Review of Systems ROS Statement: Those systems with pertinent positive or pertinent negative responses have been documented in the HPI. ROS Other: All systems not noted in ROS Statement are negative. Past Medical History Past Medical History: COPD, Hypertension Additional Past Medical History / Comment(s): lower back pain from previous injury History of Any Multi-Drug Resistant Organisms: None Reported Past Surgical History: Tubal Ligation Past Anesthesia/Blood Transfusion Reactions: No Reported Reaction Additional Past Anesthesia/Blood Transfusion Reaction / Comment(s): clausterphobia Past Psychological History: Anxiety, Depression Smoking Status: Current every day smoker Past Alcohol Use History: None Reported Past Drug Use History: None Reported - Past Family History Father History Unknown: Yes Family Medical History: Cancer Additional Family Medical History / Comment(s): unk type Mother History Unknown: Yes Family Medical History: AFIB, Congestive Heart Failure (CHF), Myocardial Infarction ([place]), Seizure Disorder General Exam Limitations: no limitations General appearance: alert, in no apparent distress, other (This is a well- developed, well-nourished adult female patient in no acute distress. Vital signs upon presentation are temperature 98.4F, pulse 111, respirations 20, blood pressure 159/90, pulse ox 95% on room air.) Eye exam: Present: normal appearance, PERRL, EOMI. Absent: scleral icterus, conjunctival injection, periorbital swelling ENT exam: Present: normal exam, normal oropharynx, mucous membranes moist Respiratory exam: Present: normal lung sounds bilaterally. Absent: respiratory distress, wheezes, rales, rhonchi, stridor Cardiovascular Exam: Present: regular rate, normal rhythm, normal heart sounds. Absent: systolic murmur, diastolic murmur, rubs, gallop, clicks GI/Abdominal exam: Present: soft, tenderness (Left upper quadrant, mid epigastric tendnerness.), normal bowel sounds. Absent: distended, guarding, rebound, rigid Neurological exam: Present: alert, oriented X3, CN II-XII intact Psychiatric exam: Present: normal affect, normal mood Skin exam: Present: warm, dry, intact, normal color. Absent: rash Course Vital Signs 03/03/18 19:40 Temperature 98.4 F Pulse Rate 111 H Respiratory 20 Rate Blood Pressure 159/90 O2 Sat by Pulse 95 Oximetry Medical Decision Making - Medical Decision Making 53-year-old female patient presented to the emergency department today for evaluation of upper abdominal pain after coughing episode a few days ago. Patient describes a sharp pain that worsens when she coughs, laughs, or engages the abdominal muscles. Patient did have some tenderness over the midepigastric region and left upper quadrants are did perform labs and KUB x-ray of the abdomen. Labs did show elevated liver enzymes, lipase of a little over 300. This does seem to be chronic for the patient. Patient does use alcohol daily. I do feel her symptoms are related to a muscle strain. White blood cell count was normal, patient did have some blood in her urine but denies any back pain. Plasma lactic acid was negative. She is instructed to follow-up with her primary care physician for recheck as soon as possible. Return parameters discussed in detail. She verbalizes understanding and agreed with this plan. - Lab Data Result diagrams: 03/03/18 20:12 03/03/18 20:12 Lab Results 03/03/18 03/03/18 03/03/18 Range/Units 20:12 20:12 20:12 WBC 6.8 (3.8-10.6) k/uL RBC 5.11 (3.80-5.40) m/uL Hgb 15.4 (11.4-16.0) gm/dL Hct 46.8 H (34.0-46.0) % MCV 91.5 (80.0-100.0) fL MCH 30.1 (25.0-35.0) pg MCHC 32.8 (31.0-37.0) g/dL RDW 15.3 (11.5-15.5) % Plt Count 87 L (150-450) k/uL Neutrophils % 52 % Lymphocytes % 32 % Monocytes % 10 % Eosinophils % 3 % Basophils % 1 % Neutrophils # 3.5 (1.3-7.7) k/uL Lymphocytes # 2.2 (1.0-4.8) k/uL Monocytes # 0.7 (0-1.0) k/uL Eosinophils # 0.2 (0-0.7) k/uL Basophils # 0.1 (0-0.2) k/uL Sodium 139 (137-145) mmol/L Potassium 3.4 L (3.5-5.1) mmol/L Chloride 105 (98-107) mmol/L Carbon Dioxide 24 (22-30) mmol/L Anion Gap 10 mmol/L BUN 12 (7-17) mg/dL Creatinine 0.70 (0.52-1.04) mg/dL Est GFR (CKD-EPI)AfAm >90 (>60 ml/min/1.73 sqM) Est GFR (CKD-EPI)NonAf >90 (>60 ml/min/1.73 sqM) Glucose 119 H (74-99) mg/dL Plasma Lactic Acid Luis E 1.6 (0.7-2.0) mmol/L Calcium 8.6 (8.4-10.2) mg/dL Total Bilirubin 0.8 (0.2-1.3) mg/dL AST 184 H (14-36) U/L ALT 123 H (9-52) U/L Alkaline Phosphatase 123 (38-126) U/L Total Protein 6.8 (6.3-8.2) g/dL Albumin 2.9 L (3.5-5.0) g/dL Amylase 79 (30-110) U/L Lipase 368 H (23-300) U/L Urine Color Urine Appearance (Clear) Urine pH (5.0-8.0) Ur Specific [place] (1.001-1.035) Urine Protein (Negative) Urine Glucose (UA) (Negative) Urine Ketones (Negative) Urine Blood (Negative) Urine Nitrite (Negative) Urine Bilirubin (Negative) Urine Urobilinogen (<2.0) mg/dL Ur Leukocyte Esterase (Negative) Urine RBC (0-5) /hpf Urine WBC (0-5) /hpf Ur Squamous Epith Cells (0-4) /hpf Urine Bacteria (None) /hpf Urine Mucus (None) /hpf /05/13 Range/Units 20:12 WBC (3.8-10.6) k/uL RBC (3.80-5.40) m/uL Hgb (11.4-16.0) gm/dL Hct (34.0-46.0) % MCV (80.0-100.0) fL MCH (25.0-35.0) pg MCHC (31.0-37.0) g/dL RDW (11.5-15.5) % Plt Count (150-450) k/uL Neutrophils % % Lymphocytes % % Monocytes % % Eosinophils % % Basophils % % Neutrophils # (1.3-7.7) k/uL Lymphocytes # (1.0-4.8) k/uL Monocytes # (0-1.0) k/uL Eosinophils # (0-0.7) k/uL Basophils # (0-0.2) k/uL Sodium (137-145) mmol/L Potassium (3.5-5.1) mmol/L Chloride (98-107) mmol/L Carbon Dioxide (22-30) mmol/L Anion Gap mmol/L BUN (7-17) mg/dL Creatinine (0.52-1.04) mg/dL Est GFR (CKD-EPI)AfAm (>60 ml/min/1.73 sqM) Est GFR (CKD-EPI)NonAf (>60 ml/min/1.73 sqM) Glucose (74-99) mg/dL Plasma Lactic Acid Luis E (0.7-2.0) mmol/L Calcium (8.4-10.2) mg/dL Total Bilirubin (0.2-1.3) mg/dL AST (14-36) U/L ALT (9-52) U/L Alkaline Phosphatase (38-126) U/L Total Protein (6.3-8.2) g/dL Albumin (3.5-5.0) g/dL Amylase (30-110) U/L Lipase (23-300) U/L Urine Color Yellow Urine Appearance Clear (Clear) Urine pH 5.5 (5.0-8.0) Ur Specific [place] 1.003 (1.001-1.035) Urine Protein 2+ H (Negative) Urine Glucose (UA) Negative (Negative) Urine Ketones Negative (Negative) Urine Blood Large H (Negative) Urine Nitrite Negative (Negative) Urine Bilirubin Negative (Negative) Urine Urobilinogen <2.0 (<2.0) mg/dL Ur Leukocyte Esterase Negative (Negative) Urine RBC 17 H (0-5) /hpf Urine WBC 1 (0-5) /hpf Ur Squamous Epith Cells <1 (0-4) /hpf Urine Bacteria Rare H (None) /hpf Urine Mucus Rare H (None) /hpf - Radiology Data Radiology results: report reviewed, image reviewed Two-view x-ray of the abdomen shows no sign of intestinal obstruction or pneumoperitoneum. Fecal pattern is normal. Lung bases are clear. There are no pathologic calcifications over the kidneys. Nonacute abdomen. No change. Disposition Clinical Impression: Abdominal pain Disposition: HOME SELF-CARE Condition: Good Instructions: Muscle Strain (ED), Abdominal Pain (ED) Additional Instructions: Apply warm moist heat to the abdominal wall. Take medication as directed. Follow-up with your primary care physician for recheck as soon as possible. Return here immediately for any new, worsening, or concerning symptoms. Prescriptions: Cyclobenzaprine [Flexeril] 10 mg PO TID #15 tab Is patient prescribed a controlled substance at d/c from ED?: No Referrals: Kel Mason MD [Primary Care Provider] - 1-2 days Time of Disposition: 21:23
[2018-03-03 20:21] LABS: Basophils # (A) 0.1 k/uL (0-0.2); Basophils % (A) 1 %; Eosinophils # (A) 0.2 k/uL (0-0.7); Eosinophils % (A) 3 %; HCT 46.8 % (34.0-46.0); HGB 15.4 gm/dL (11.4-16.0); Lymphocytes # (A) 2.2 k/uL (1.0-4.8); Lymphocytes % (A) 32 %; MCH 30.1 pg (25.0-35.0); MCHC 32.8 g/dL (31.0-37.0); MCV 91.5 fL (80.0-100.0); Monocytes # (A) 0.7 k/uL (0-1.0); Monocytes % (A) 10 %; Neutrophils # (A) 3.5 k/uL (1.3-7.7); Neutrophils % (A) 52 %; RBC 5.11 m/uL (3.80-5.40); RDW 15.3 % (11.5-15.5); WBC 6.8 k/uL (3.8-10.6)
[2018-03-03 20:33] LABS: Platelet Count 87 k/uL (150-450)
--- NOTE | 2018-03-03 20:34 | XR ---
EXAMINATION TYPE: XR KUB DATE OF EXAM: 03/03/2018 COMPARISON: 01/16/2017 HISTORY: Left upper quadrant pain TECHNIQUE: 2 views FINDINGS: There is no sign of intestinal obstruction or pneumoperitoneum. Fecal pattern is normal. Taylor ng bases are clear. There are no pathologic calcifications over the kidneys. IMPRESSION: Nonacute abdomen. No change.
[2018-03-03 20:35] LABS: ALT 123 U/L (9-52); AST 184 U/L (14-36); Albumin 2.9 g/dL (3.5-5.0); Alkaline Phosphatase 123 U/L (38-126); Amylase 79 U/L (30-110); Anion Gap 10 mmol/L; Blood Urea Nitrogen 12 mg/dL (7-17); Calcium 8.6 mg/dL (8.4-10.2); Carbon Dioxide 24 mmol/L (22-30); Chloride 105 mmol/L (98-107); Glucose 119 mg/dL (74-99); Lipase 368 U/L (23-300); Potassium 3.4 mmol/L (3.5-5.1); Sodium 139 mmol/L (137-145); Total Bilirubin 0.8 mg/dL (0.2-1.3); Total Protein 6.8 g/dL (6.3-8.2)
[2018-03-03 20:38] LABS: Appearance,Urine Clear (Clear); Bacteria,Urine Rare /hpf; Bilirubin,Urine Negative (Negative); Blood,Urine Large (Negative); Color,Urine Yellow; Glucose,Urine (UA) Negative (Negative); Ketones,Urine Negative (Negative); Leukocyte Esterase,Urine Negative (Negative); Mucus,Urine Rare /hpf; Nitrite,Urine Negative (Negative); PH, Urine 5.5 (5.0-8.0); Protein,Urine 2+ (Negative); RBC,Urine 17 /hpf (0-5); Specific Gravity,Urine 1.003 (1.001-1.035); Squamous Epithelial Cell,Urine <1 /hpf (0-4); Urobilinogen,Urine <2.0 mg/dL (<2.0); WBC,Urine 1 /hpf (0-5)
== END 2018-03-03 21:42 | disposition home or self-care (01) ==
LOC: EC 19:34
DX: R10.13 Epigastric pain (principal); R10.12 Left upper quadrant pain; R74.8 Abnormal levels of other serum enzymes; R05 Cough; F17.200 Nicotine dependence, unspecified, uncomplicated; Z79.899 Other long term (current) drug therapy; Z88.8 Allergy status to other drugs, medicaments and biological substances
CPT/HCPCS: 36415; 93005; 80053; 82150; 83605; 83690; 85025; 81001; 74018; 99284; 96374; 96375; J2405; J2270

== ENCOUNTER 2018-04-20 15:28 | Inpatient (IN) | payer OTHER ==
[2018-04-20 15:54] LABS: Appearance,Urine Cloudy (Clear); Bacteria,Urine Many /hpf; Bilirubin,Urine Negative (Negative); Blood,Urine Large (Negative); Budding Yeast,Urine Many /hpf; Color,Urine Red; Glucose,Urine (UA) Negative (Negative); Hyaline Casts,Urine 15 /lpf (0-2); Ketones,Urine Negative (Negative); Leukocyte Esterase,Urine Trace (Negative); Mucus,Urine Occasional /hpf; Nitrite,Urine Negative (Negative); Protein,Urine 2+ (Negative); RBC,Urine >182 /hpf (0-5); Specific Gravity,Urine 1.012 (1.001-1.035); Squamous Epithelial Cell,Urine 5 /hpf (0-4); WBC,Urine 19 /hpf (0-5)
[2018-04-20] MEDS ORDERED: SODIUM CHLORIDE 0.9% 1,000 ML IV STA ×2 (16:16→19:01)
[2018-04-20] MEDS ORDERED: MORPHINE SULFATE 4 MG/ML SYRINGE IV STA (16:16)
[2018-04-20 16:41] LABS: Basophils % (A) 1 %; Eosinophils # (A) 0.1 k/uL (0-0.7); Eosinophils % (A) 3 %; HCT 39.6 % (34.0-46.0); HGB 13.1 gm/dL (11.4-16.0); Lymphocytes # (A) 1.4 k/uL (1.0-4.8); Lymphocytes % (A) 28 %; MCH 31.4 pg (25.0-35.0); MCHC 33.1 g/dL (31.0-37.0); MCV 94.8 fL (80.0-100.0); Mean Platelet Volume 7.5; Monocytes # (A) 0.4 k/uL (0-1.0); Monocytes % (A) 9 %; Neutrophils # (A) 2.8 k/uL (1.3-7.7); Neutrophils % (A) 57 %; RBC 4.17 m/uL (3.80-5.40); RDW 15.9 % (11.5-15.5); WBC 4.8 k/uL (3.8-10.6)
[2018-04-20 16:44] LABS: Platelet Count 93 k/uL (150-450)
[2018-04-20 16:51] LABS: Albumin 2.6 g/dL (3.5-5.0); Calcium 8.6 mg/dL (8.4-10.2); Potassium 4.3 mmol/L (3.5-5.1); Total Bilirubin 1.8 mg/dL (0.2-1.3); Total Protein 6.5 g/dL (6.3-8.2)
--- NOTE | 2018-04-20 17:19 | ED ---
General Adult HPI - General Chief complaint: Abdominal Pain Stated complaint: Sent by [facility]/Gallbladder Time Seen by Provider: 04/20/18 16:16 Source: patient, RN notes reviewed, old records reviewed Mode of arrival: ambulatory Limitations: no limitations - History of Present Illness Initial comments: This is a 54-year-old female the ER for evaluation. This patient's today for evaluation of abdominal pain severe right upper quadrant bowel pain flank pain. Patient is also noticing blood in her urine. Patient has no significant surgical history she does have tubes tied. No recent travel history no sick contacts. Patient was seen by family doctor earlier today and sent ER for evaluation regarding possible gallbladder disease. Patient does admit to nausea no vomiting no fevers. - Related Data Home Medications Medication Instructions Recorded Confirmed ALPRAZolam [Xanax] 0.5 mg PO BID 04/20/18 04/20/18 HYDROcodone/APAP 10-325MG [[place] 1 tab PO Q12H PRN 04/20/18 04/20/18 10-325] Phentermine HCl [Adipex-P] 37.5 mg PO QAM 04/20/18 04/20/18 Allergies Allergy/AdvReac Type Severity Reaction Status Date / Time bupropion [From Wellbutrin] Allergy seizure Verified 04/20/18 16:32 Review of Systems ROS Statement: Those systems with pertinent positive or pertinent negative responses have been documented in the HPI. ROS Other: All systems not noted in ROS Statement are negative. Past Medical History Past Medical History: COPD, Hypertension Additional Past Medical History / Comment(s): lower back pain from previous injury History of Any Multi-Drug Resistant Organisms: None Reported Past Surgical History: Tubal Ligation Past Anesthesia/Blood Transfusion Reactions: No Reported Reaction Additional Past Anesthesia/Blood Transfusion Reaction / Comment(s): clausterphobia Past Psychological History: Anxiety, Depression Smoking Status: Current every day smoker Past Alcohol Use History: Occasional Past Drug Use History: None Reported - Past Family History Father History Unknown: Yes Family Medical History: Cancer Additional Family Medical History / Comment(s): unk type Mother History Unknown: Yes Family Medical History: AFIB, Congestive Heart Failure (CHF), Myocardial Infarction ([place]), Seizure Disorder General Exam Limitations: no limitations General appearance: alert, in no apparent distress, obese Head exam: Present: atraumatic, normocephalic, normal inspection Eye exam: Present: normal appearance, PERRL, EOMI. Absent: scleral icterus, conjunctival injection, periorbital swelling ENT exam: Present: normal exam, mucous membranes moist Neck exam: Present: normal inspection. Absent: tenderness, meningismus, lymphadenopathy Respiratory exam: Present: normal lung sounds bilaterally. Absent: respiratory distress, wheezes, rales, rhonchi, stridor Cardiovascular Exam: Present: regular rate, normal rhythm, normal heart sounds. Absent: systolic murmur, diastolic murmur, rubs, gallop, clicks GI/Abdominal exam: Present: soft, tenderness (Right upper quadrant), normal bowel sounds. Absent: distended, guarding, rebound, rigid Extremities exam: Present: normal inspection, full ROM, normal capillary refill. Absent: tenderness, pedal edema, joint swelling, calf tenderness Back exam: Present: normal inspection Neurological exam: Present: alert, oriented X3, CN II-XII intact Psychiatric exam: Present: normal affect, normal mood Skin exam: Present: warm, dry, intact, normal color. Absent: rash Course Vital Signs 04/20/18 04/20/18 04/20/18 15:38 17:23 18:58 Temperature 98.2 F 97.7 F Pulse Rate 89 90 89 Respiratory 18 20 18 Rate Blood Pressure 160/94 155/82 140/80 O2 Sat by Pulse 98 96 98 Oximetry 04/20/18 04/20/18 19:32 20:50 Temperature Pulse Rate 80 82 Respiratory 18 18 Rate Blood Pressure 163/82 160/82 O2 Sat by Pulse 95 95 Oximetry Medical Decision Making - Lab Data Result diagrams: 04/20/18 16:25 04/20/18 16:25 Lab Results 04/20/18 04/20/18 04/20/18 Range/Units 15:41 16:25 16:25 WBC 4.8 (3.8-10.6) k/uL RBC 4.17 (3.80-5.40) m/uL Hgb 13.1 (11.4-16.0) gm/dL Hct 39.6 (34.0-46.0) % MCV 94.8 (80.0-100.0) fL MCH 31.4 (25.0-35.0) pg MCHC 33.1 (31.0-37.0) g/dL RDW 15.9 H (11.5-15.5) % Plt Count 93 L (150-450) k/uL Neutrophils % 57 % Lymphocytes % 28 % Monocytes % 9 % Eosinophils % 3 % Basophils % 1 % Neutrophils # 2.8 (1.3-7.7) k/uL Lymphocytes # 1.4 (1.0-4.8) k/uL Monocytes # 0.4 (0-1.0) k/uL Eosinophils # 0.1 (0-0.7) k/uL Basophils # 0.0 (0-0.2) k/uL Sodium 140 (137-145) mmol/L Potassium 4.3 (3.5-5.1) mmol/L Chloride 108 H (98-107) mmol/L Carbon Dioxide 28 (22-30) mmol/L Anion Gap 4 mmol/L BUN 14 (7-17) mg/dL Creatinine 1.00 (0.52-1.04) mg/dL Est GFR (CKD-EPI)AfAm 75 (>60 ml/min/1.73 sqM) Est GFR (CKD-EPI)NonAf 65 (>60 ml/min/1.73 sqM) Glucose 89 (74-99) mg/dL Plasma Lactic Acid Luis E (0.7-2.0) mmol/L Calcium 8.6 (8.4-10.2) mg/dL Total Bilirubin 1.8 H (0.2-1.3) mg/dL AST 136 H (14-36) U/L ALT 95 H (9-52) U/L Alkaline Phosphatase 101 (38-126) U/L Total Protein 6.5 (6.3-8.2) g/dL Albumin 2.6 L (3.5-5.0) g/dL Amylase 57 (30-110) U/L Lipase 208 (23-300) U/L Urine Color Red Urine Appearance Cloudy H (Clear) Urine pH 6.0 (5.0-8.0) Ur Specific [place] 1.012 (1.001-1.035) Urine Protein 2+ H (Negative) Urine Glucose (UA) Negative (Negative) Urine Ketones Negative (Negative) Urine Blood Large H (Negative) Urine Nitrite Negative (Negative) Urine Bilirubin Negative (Negative) Urine Urobilinogen 2.0 (<2.0) mg/dL Ur Leukocyte Esterase Trace H (Negative) Urine RBC >182 H (0-5) /hpf Urine WBC 19 H (0-5) /hpf Ur Squamous Epith Cells 5 H (0-4) /hpf Urine Bacteria Many H (None) /hpf Hyaline Casts 15 H (0-2) /lpf Urine Mucus Occasional H (None) /hpf Urine Yeast (Budding) Many H (None) /hpf 04/20/18 Range/Units 16:25 WBC (3.8-10.6) k/uL RBC (3.80-5.40) m/uL Hgb (11.4-16.0) gm/dL Hct (34.0-46.0) % MCV (80.0-100.0) fL MCH (25.0-35.0) pg MCHC (31.0-37.0) g/dL RDW (11.5-15.5) % Plt Count (150-450) k/uL Neutrophils % % Lymphocytes % % Monocytes % % Eosinophils % % Basophils % % Neutrophils # (1.3-7.7) k/uL Lymphocytes # (1.0-4.8) k/uL Monocytes # (0-1.0) k/uL Eosinophils # (0-0.7) k/uL Basophils # (0-0.2) k/uL Sodium (137-145) mmol/L Potassium (3.5-5.1) mmol/L Chloride (98-107) mmol/L Carbon Dioxide (22-30) mmol/L Anion Gap mmol/L BUN (7-17) mg/dL Creatinine (0.52-1.04) mg/dL Est GFR (CKD-EPI)AfAm (>60 ml/min/1.73 sqM) Est GFR (CKD-EPI)NonAf (>60 ml/min/1.73 sqM) Glucose (74-99) mg/dL Plasma Lactic Acid Luis E 1.3 (0.7-2.0) mmol/L Calcium (8.4-10.2) mg/dL Total Bilirubin (0.2-1.3) mg/dL AST (14-36) U/L ALT (9-52) U/L Alkaline Phosphatase (38-126) U/L Total Protein (6.3-8.2) g/dL Albumin (3.5-5.0) g/dL Amylase (30-110) U/L Lipase (23-300) U/L Urine Color Urine Appearance (Clear) Urine pH (5.0-8.0) Ur Specific [place] (1.001-1.035) Urine Protein (Negative) Urine Glucose (UA) (Negative) Urine Ketones (Negative) Urine Blood (Negative) Urine Nitrite (Negative) Urine Bilirubin (Negative) Urine Urobilinogen (<2.0) mg/dL Ur Leukocyte Esterase (Negative) Urine RBC (0-5) /hpf Urine WBC (0-5) /hpf Ur Squamous Epith Cells (0-4) /hpf Urine Bacteria (None) /hpf Hyaline Casts (0-2) /lpf Urine Mucus (None) /hpf Urine Yeast (Budding) (None) /hpf Disposition Clinical Impression: Abdominal pain, Hematuria Disposition: ADMITTED IP TO THIS [facility] Condition: Good Is patient prescribed a controlled substance at d/c from ED?: No Referrals: Kel Mason MD [Primary Care Provider] - 1-2 days
--- NOTE | 2018-04-20 18:59 | US ---
EXAMINATION TYPE: US gallbladder DATE OF EXAM: 04/20/2018 COMPARISON: US 2017 CLINICAL HISTORY: Pain. RUQ pain x 2 days EXAM MEASUREMENTS: Liver Length: 15.6 cm Gallbladder Wall: 0.25 cm CBD: 0.7 cm (Top normal 7 mm caliber) Right Kidney: 11.5 x 4.7 x 5.6 cm Pancreas: visualized portions wnl, tail obscured by overlying midline bowel gas Liver: wnl Gallbladder: wnl Evidence for sonographic Gustafson's sign: yes CBD: mildly dilated Right Kidney: No hydronephrosis. Small amount of free fluid seen in RUQ IMPRESSION: 1. OVERALL SONOGRAPHIC IMPRESSION IS NEGATIVE FOR CHOLECYSTITIS. However, tenderness was elicited ove r the gallbladder. The gallbladder is mildly distended mildly and gallbladder wall is top normal in t hickness. There is no cholelithiasis, but borderline common duct caliber is noted; distal CBD cannot be visualized due to overlying bowel gas. 2. Small volume peritoneal fluid in the perihepatic spaces.
[2018-04-20] MEDS ORDERED: ONDANSETRON 4 MG/2 ML VIAL IVP STA (19:01)
[2018-04-20] MEDS ORDERED: KETOROLAC 30 MG/ML 1 ML VIAL IVP STA (19:01)
[2018-04-20] MEDS ORDERED: PANTOPRAZOLE 40 MG/10 ML VIAL IVP STA (19:01)
[2018-04-20] MEDS ORDERED: SODIUM CHLORIDE 0.9% 1,000 ML IV ONE (21:00)
[2018-04-20] MEDS ORDERED: AMPICILLIN-SULBACTAM 3 GM in SODIUM CHLORIDE 0.9% 100 ML IVPB STA (21:00)
[2018-04-20] MEDS ORDERED: ONDANSETRON 4 MG/2 ML VIAL IVP PRN (21:00)
--- NOTE | 2018-04-20 21:13 | CT ---
EXAMINATION TYPE: CT abdomen pelvis wo con DATE OF EXAM: 04/20/2018 COMPARISON: HISTORY: RUQ pain CT DLP: 1242.2 mGycm Automated exposure control for dose reduction was used. TECHNIQUE: Helical acquisition of images was performed from the lung bases through the pelvis. FINDINGS: Lung bases are clear of consolidation. There is no pleural effusion. There is mild ascites fluid thro ughout the abdomen. Liver shows no focal defect. Spleen measures 13 cm. The bile ducts are not dilate d. Gallbladder appears normal. There is no evidence of a pancreatic mass. There is no adrenal mass. Kidneys have normal size and contour. There is no hydronephrosis. Bladder d istends smoothly. Uterus is anteverted. There is no evidence of pelvic mass. Only structures are inta ct. There is no intestinal wall thickening. There are no dilated loops. There is subcutaneous edema a round the abdomen. Liver is slightly irregular. IMPRESSION: ASCITES. MILD SPLENOMEGALY. IRREGULAR LIVER CONSISTENT WITH CIRRHOSIS. NO DILATED DUCTS.
[2018-04-20] MEDS: MORPHINE SULFATE 4 MG/ML SYRINGE IVP PRN (21:55)
[2018-04-20 22:09] VITALS: BMI 43.7
[2018-04-21] MEDS: MORPHINE SULFATE 4 MG/ML SYRINGE IVP PRN ×5 (01:51→21:02)
[2018-04-21] MEDS: AMPICILLIN-SULBACTAM 3 GM in SODIUM CHLORIDE 0.9% 100 ML IVPB SCH ×3 (08:01→23:24)
[2018-04-21] MEDS ORDERED: PANTOPRAZOLE 40 MG/10 ML VIAL IVP SCH (09:00)
[2018-04-21 09:05] LABS: Basophils % (A) 1 %; Eosinophils # (A) 0.1 k/uL (0-0.7); Eosinophils % (A) 4 %; HCT 34.8 % (34.0-46.0); HGB 11.3 gm/dL (11.4-16.0); Lymphocytes # (A) 1.1 k/uL (1.0-4.8); Lymphocytes % (A) 30 %; MCH 31.6 pg (25.0-35.0); MCHC 32.4 g/dL (31.0-37.0); MCV 97.4 fL (80.0-100.0); Mean Platelet Volume 7.9; Monocytes # (A) 0.4 k/uL (0-1.0); Monocytes % (A) 11 %; Neutrophils # (A) 1.8 k/uL (1.3-7.7); Neutrophils % (A) 50 %; RBC 3.58 m/uL (3.80-5.40); RDW 15.6 % (11.5-15.5); WBC 3.6 k/uL (3.8-10.6)
[2018-04-21 09:15] LABS: Platelet Count 82 k/uL (150-450)
[2018-04-21 09:31] LABS: Calcium 7.6 mg/dL (8.4-10.2); Potassium 4.1 mmol/L (3.5-5.1); Total Bilirubin 1.8 mg/dL (0.2-1.3); Total Protein 5.4 g/dL (6.3-8.2)
--- NOTE | 2018-04-21 10:18 | P.HPIM ---
History of Present Illness H&P Date: 04/21/18 Chief Complaint: Abdominal pain This is a 53-year-old patient who presented to the emergency room after visiting her primary care provider for abdominal pain. She also states she has been noticing blood in her urine. Patient states she's been having severe right upper quadrant pain. Patient has a known medical history of COPD, hypertension and low back pain. Patient did state that she does drink alcohol daily sometimes up to a 6 pack of beer per day. Gallbladder ultrasound completed in Emergency room showing an overall impression that is negative for cholecystitis however the gallbladder is mildly distended gallbladder wall is top normal in thickness, Small Volume Peritoneal Fluid in the Parahepatic Spaces. CT of the abdomen and pelvis completed showing ascites. Mild splenomegaly. Irregular liver consistent with cirrhosis. No dilated ducts. Dr. Jain has been ordered per surgical consult. Platelet level 93, AST 136, ALT 95 and total bilirubin 1.8. NM Hepatobiliary w CCK has been ordered per surgical services and planning to be completed at [address] Mcdaniel per GI has been consulted for cirrhosis and elevated liver enzymes. Patient currently has Unasyn for antibiotic. She denies chest pain or shortness of breath. Does report right upper quadrant pain with intermittent diarrhea for the past couple months. C. diff stool sample has been ordered. Patient remains nothing by mouth. Glucose 71. Accu-Cheks have been ordered. Review of Systems please referr to HPI otherwise unremarkable Past Medical History Past Medical History: COPD, Hypertension Additional Past Medical History / Comment(s): lower back pain History of Any Multi-Drug Resistant Organisms: None Reported Past Surgical History: Tubal Ligation Past Anesthesia/Blood Transfusion Reactions: No Reported Reaction Additional Past Anesthesia/Blood Transfusion Reaction / Comment(s): clausterphobia Past Psychological History: Anxiety, Depression Additional Psychological History / Comment(s): . Smoking Status: Current every day smoker Past Alcohol Use History: Occasional Additional Past Alcohol Use History / Comment(s): started smoking at age 12, used to smoke 1 ppd but has cut down to 1/2 ppd. Past Drug Use History: None Reported - Past Family History Father History Unknown: Yes Family Medical History: Cancer Additional Family Medical History / Comment(s): unk type Mother History Unknown: Yes Family Medical History: AFIB, Congestive Heart Failure (CHF), Myocardial Infarction ([place]), Seizure Disorder Medications and Allergies Home Medications Medication Instructions Recorded Confirmed Type ALPRAZolam [Xanax] 0.5 mg PO BID 04/20/18 04/20/18 History HYDROcodone/APAP 10-325MG [[place] 1 tab PO Q12H PRN 04/20/18 04/20/18 History 10-325] Phentermine HCl [Adipex-P] 37.5 mg PO QAM 04/20/18 04/20/18 History Allergies Allergy/AdvReac Type Severity Reaction Status Date / Time bupropion [From Wellbutrin] Allergy seizure Verified 04/20/18 16:32 Physical Exam Vitals: Vital Signs Temp Pulse Pulse Resp BP BP Pulse Ox 04/21/18 07:00 97.7 F 84 14 145/90 94 L 04/21/18 00:28 97.5 F L 83 16 123/77 95 04/20/18 22:16 18 04/20/18 21:40 97.0 F L 86 18 165/95 96 04/20/18 21:34 97.4 F L 81 16 95 04/20/18 20:50 82 18 160/82 95 04/20/18 19:32 80 18 163/82 95 04/20/18 18:58 89 18 140/80 98 04/20/18 17:23 97.7 F 90 20 155/82 96 04/20/18 15:38 98.2 F 89 18 160/94 98 Intake and Output 04/20/18 04/21/18 04/21/18 22:59 06:59 14:59 Intake Total 800 Balance 800 Intake: Intake, IV Titration 800 Amount Sodium Chloride 0.9% 1, 800 000 ml @ 100 mls/hr IV . Q10H ONE Rx#:[id number] Other: # Voids 3 Weight 112.03 kg Head normocephalic Neck supple Lungs clear to auscultation bilaterally no wheezing or crackles Heart regular rate and rhythm S1-S2, no rub or gallop Abdomen is soft nontender nondistended positive bowel sounds. RUQ pain to palpation Extremities no edema Neuro alert and orientated to 3 Results CBC & Chem 7: 04/21/18 08:39 04/21/18 08:39 Labs: Abnormal Lab Results - Last 24 Hours (Table) 04/20/18 04/20/18 04/20/18 Range/Units 15:41 16:25 16:25 WBC (3.8-10.6) k/uL RBC (3.80-5.40) m/uL Hgb (11.4-16.0) gm/dL RDW 15.9 H (11.5-15.5) % Plt Count 93 L (150-450) k/uL Chloride 108 H (98-107) mmol/L Creatinine (0.52-1.04) mg/dL Glucose (74-99) mg/dL Calcium (8.4-10.2) mg/dL Total Bilirubin 1.8 H (0.2-1.3) mg/dL AST 136 H (14-36) U/L ALT 95 H (9-52) U/L Total Protein (6.3-8.2) g/dL Albumin 2.6 L (3.5-5.0) g/dL Urine Appearance Cloudy H (Clear) Urine Protein 2+ H (Negative) Urine Blood Large H (Negative) Ur Leukocyte Esterase Trace H (Negative) Urine RBC >182 H (0-5) /hpf Urine WBC 19 H (0-5) /hpf Ur Squamous Epith Cells 5 H (0-4) /hpf Urine Bacteria Many H (None) /hpf Hyaline Casts 15 H (0-2) /lpf Urine Mucus Occasional H (None) /hpf Urine Yeast (Budding) Many H (None) /hpf 04/21/18 04/21/18 Range/Units 08:39 08:39 WBC 3.6 L (3.8-10.6) k/uL RBC 3.58 L (3.80-5.40) m/uL Hgb 11.3 L (11.4-16.0) gm/dL RDW 15.6 H (11.5-15.5) % Plt Count 82 L (150-450) k/uL Chloride 111 H (98-107) mmol/L Creatinine 1.06 H (0.52-1.04) mg/dL Glucose 71 L (74-99) mg/dL Calcium 7.6 L (8.4-10.2) mg/dL Total Bilirubin 1.8 H (0.2-1.3) mg/dL AST 112 H (14-36) U/L ALT 79 H (9-52) U/L Total Protein 5.4 L (6.3-8.2) g/dL Albumin 2.0 L (3.5-5.0) g/dL Urine Appearance (Clear) Urine Protein (Negative) Urine Blood (Negative) Ur Leukocyte Esterase (Negative) Urine RBC (0-5) /hpf Urine WBC (0-5) /hpf Ur Squamous Epith Cells (0-4) /hpf Urine Bacteria (None) /hpf Hyaline Casts (0-2) /lpf Urine Mucus (None) /hpf Urine Yeast (Budding) (None) /hpf Microbiology - Last 24 Hours (Table) 04/20/18 15:41 Urine Culture - Preliminary Urine,Voided Thrombosis Risk Factor Assmnt - Choose All That Apply Any of the Below Risk Factors Present?: Yes Each Factor Represents 1 point: Abnormal pulmonary function (COPD), Age 41-60 years, Obesity (BMI >25) Other Risk Factors: No Other congenital or acquired thrombophilia - If yes, enter type in comment: No Thrombosis Risk Factor Assessment Total Risk Factor Score: 3 Thrombosis Risk Factor Assessment Level: Moderate Risk Assessment and Plan Assessment: 1. Right upper quadrant pain. Ultrasound of gallbladder completed emergency room showing overall impression is negative for cholecystiti, however the gallbladder is mildly distended gallbladder while top normal in thickness. There is small volume of peritoneal fluid in perihepatic spaces. Dr. Jain per surgical services have been consulted. Patient kept nothing by mouth. NM hepatobiliary scan has been ordered for today at 3. Unasyn IV antibiotic has been ordered. Blood and urine current cultures have been ordered. 2. Elevated liver enzymes related to possible liver cirrhosis. CT of abdomen and pelvis completed showing phase. Mild splenomegaly. Irregular liver cirrhosis. No dilated ducts area platelet level 93, AST [address] Mcdaniel per GI services have been consulted. Patient does report a history of alcohol use up to a sixpack per day. 3. Hematuria. Urinary analysis completed showing large amount of blood in urine. Hemoglobin level 11.3. We'll continue to monitor closely. 4. Thrombocytopenia. Platelet level 93. This does appear chronic for this patient. She does admit to drinking up to a sixpack of beer per day. We'll hold off on any anticoagulation at this point. GI services have been consulted. 5. Hypoglycemia. Blood sugar sugar 71. AC/HS Accu-Cheks have been ordered. 6. History of COPD. No exacerbation at this time 7. History of essential hypertension. Not currently on any medication 8. Chronic low back pain. Patient's home dose of [place] currently on hold due to elevated liver enzymes. Morphine has been ordered for pain control at this time. DVT prophylaxis SCDs due to low platelet count, GI prophylaxis Protonix Time with Patient: Greater than 30 (Greater than 60% of the total time spent in counseling and coordination of care. I performed an examination of the patient and discussed their management with the Nurse Practitioner. I have reviewed the Nurse Practitioner's notes and agree with the documented findings and plan of care)
[2018-04-21] MEDS ORDERED: LORazepam 2 MG/ML INJ IV PRN ×3 (10:57)
[2018-04-21] MEDS ORDERED: THIAMINE 100 MG/ML 2 ML VIAL IM STA (11:02)
[2018-04-21 12:02] LABS: Glucose,Whole Blood 78 mg/dL (75-99)
[2018-04-21 12:02] LABS: Glucose,Whole Blood 80 mg/dL (75-99)
--- NOTE | 2018-04-21 15:44 | P.CONS ---
History of Present Illness - Reason for Consult Consult date: 04/21/18 Elevated liver enzymes Requesting physician: Kel Mason - History of Present Illness 53-year-old female lifelong history of alcohol abuse since the age of 10 drinks 8 beers daily, chronic diarrhea 2-4 times daily depends on diet greater than 1 year, GERD, presents with increased midepigastric right upper quadrant abdominal pain nausea indigestion, intermittent lower extremity edema, abdominal bloatedness, and hematuria. No history of EGD colonoscopy. Consult requested for elevated liver enzymes possible cirrhosis. Admission white count 4.8. Hemoglobin 13.1. Platelet 93,000. Total bilirubin 1.8. AST 136. ALT 95. AP 101. Amylase 57. Lipase 208. BUN 14. Creatinine 1.0. UA cloudy large blood trace leukocyte esterase many yeast and bacteria. No history of known liver disorders or hepatitis. No history of intravenous drug abuse. Ultrasound abdomen negative for cholecystitis mildly distended gallbladder and mildly thickened gallbladder wall. CBD 0.7 cm. No stones. Small-volume peritoneal fluid in the perihepatic spaces. Liver length 15.[address] abdomen mild splenomegaly. Irregular liver consistent with cirrhosis. No focal liver defects. No dilated ducts. No pancreatic mass. General surgery consult at [facility] scan pending. Review of Systems Constitutional: Denies fever, chills, sweats, weight gain, or loss. HEENT: Negative for migraines, blurred vision or loss, earaches, drainage, tinnitus, oral mucosal lesions, dysphagia, or odynophagia. CARDIAC: Negative for chest pain, arrhythmias, or palpitation. RESPIRATORY: Negative for shortness of breath, hemoptysis, cough, or sputum production. GI: See HPI for pertinent findings. : Admitted with reports of hematuria, denies urgency, frequency, polyuria, or dysuria. GYNc: Denies possibility of . Negative vaginal discharge. MUSCULOSKELETAL: Negative for muscle aches, swelling, arthritis, and arthralgias. NEUROLOGIC: Negative for stroke or TIA. ENDOCRINE: Negative for thyroid problems. SKIN: Negative for rash or itching. PSYCHIATRIC: Negative history for depression and anxiety Past Medical History Past Medical History: COPD, Hypertension Additional Past Medical History / Comment(s): lower back pain History of Any Multi-Drug Resistant Organisms: None Reported Past Surgical History: Tubal Ligation Past Anesthesia/Blood Transfusion Reactions: No Reported Reaction Additional Past Anesthesia/Blood Transfusion Reaction / Comm: clausterphobia Past Psychological History: Anxiety, Depression Additional Psychological History / Comment(s): . Smoking Status: Current every day smoker Past Alcohol Use History: Occasional Additional Past Alcohol Use History / Comment(s): started smoking at age 12, used to smoke 1 ppd but has cut down to 1/2 ppd. Past Drug Use History: None Reported - Past Family History Father History Unknown: Yes Family Medical History: Cancer Additional Family Medical History / Comment(s): unk type Mother History Unknown: Yes Family Medical History: AFIB, Congestive Heart Failure (CHF), Myocardial Infarction ([place]), Seizure Disorder Medications and Allergies Home Medications Medication Instructions Recorded Confirmed Type ALPRAZolam [Xanax] 0.5 mg PO BID 04/20/18 04/20/18 History HYDROcodone/APAP 10-325MG [[place] 1 tab PO Q12H PRN 04/20/18 04/20/18 History 10-325] Phentermine HCl [Adipex-P] 37.5 mg PO QAM 04/20/18 04/20/18 History Allergies Allergy/AdvReac Type Severity Reaction Status Date / Time bupropion [From Wellbutrin] Allergy seizure Verified 04/20/18 16:32 Physical Exam Vitals: Vital Signs Temp Pulse Pulse Resp BP BP Pulse Ox 04/21/18 07:00 97.7 F 84 14 145/90 94 L 04/21/18 00:28 97.5 F L 83 16 123/77 95 04/20/18 22:16 18 04/20/18 21:40 97.0 F L 86 18 165/95 96 04/20/18 21:34 97.4 F L 81 16 95 04/20/18 20:50 82 18 160/82 95 04/20/18 19:32 80 18 163/82 95 04/20/18 18:58 89 18 140/80 98 04/20/18 17:23 97.7 F 90 20 155/82 96 04/20/18 15:38 98.2 F 89 18 160/94 98 Intake and Output 04/20/18 04/21/18 04/21/18 22:59 06:59 14:59 Intake Total 800 Balance 800 Intake: Intake, IV Titration 800 Amount Sodium Chloride 0.9% 1, 800 000 ml @ 100 mls/hr IV . Q10H ONE Rx#:[id number] Other: # Voids 3 Weight 112.03 kg General appearance: The patient is alert, oriented, in no acute distress. HET: Head is normocephalic and atraumatic. Pupils are equal and reactive. Oropharynx is clear without lesions. Neck: Supple without lymphadenopathy. Trachea midline. Heart: S1 S2. Regular rate and rhythm. Lungs: No crackles or wheezes are heard. Abdomen: Soft, mild tenderness to the mid epigastric and right upper quadrant, mildly distended with mild ascites with bowel sounds. No peritoneal signs. No palpable organomegaly or masses. Extremities: +2 bilateral lower extremity edema Normal skin color and turgor. No cyanosis, rash, ulceration, clubbing Radial and pedal pulses are 2/4 bilaterally. Neurological: No focal deficits. Strength and sensation are grossly intact. Results CBC & Chem 7: 04/21/18 08:39 04/21/18 08:39 Labs: Abnormal Lab Results - Last 24 Hours (Table) 04/20/18 04/20/18 04/20/18 Range/Units 15:41 16:25 16:25 WBC (3.8-10.6) k/uL RBC (3.80-5.40) m/uL Hgb (11.4-16.0) gm/dL RDW 15.9 H (11.5-15.5) % Plt Count 93 L (150-450) k/uL Chloride 108 H (98-107) mmol/L Creatinine (0.52-1.04) mg/dL Glucose (74-99) mg/dL Calcium (8.4-10.2) mg/dL Total Bilirubin 1.8 H (0.2-1.3) mg/dL AST 136 H (14-36) U/L ALT 95 H (9-52) U/L Total Protein (6.3-8.2) g/dL Albumin 2.6 L (3.5-5.0) g/dL Urine Appearance Cloudy H (Clear) Urine Protein 2+ H (Negative) Urine Blood Large H (Negative) Ur Leukocyte Esterase Trace H (Negative) Urine RBC >182 H (0-5) /hpf Urine WBC 19 H (0-5) /hpf Ur Squamous Epith Cells 5 H (0-4) /hpf Urine Bacteria Many H (None) /hpf Hyaline Casts 15 H (0-2) /lpf Urine Mucus Occasional H (None) /hpf Urine Yeast (Budding) Many H (None) /hpf 04/21/18 04/21/18 Range/Units 08:39 08:39 WBC 3.6 L (3.8-10.6) k/uL RBC 3.58 L (3.80-5.40) m/uL Hgb 11.3 L (11.4-16.0) gm/dL RDW 15.6 H (11.5-15.5) % Plt Count 82 L (150-450) k/uL Chloride 111 H (98-107) mmol/L Creatinine 1.06 H (0.52-1.04) mg/dL Glucose 71 L (74-99) mg/dL Calcium 7.6 L (8.4-10.2) mg/dL Total Bilirubin 1.8 H (0.2-1.3) mg/dL AST 112 H (14-36) U/L ALT 79 H (9-52) U/L Total Protein 5.4 L (6.3-8.2) g/dL Albumin 2.0 L (3.5-5.0) g/dL Urine Appearance (Clear) Urine Protein (Negative) Urine Blood (Negative) Ur Leukocyte Esterase (Negative) Urine RBC (0-5) /hpf Urine WBC (0-5) /hpf Ur Squamous Epith Cells (0-4) /hpf Urine Bacteria (None) /hpf Hyaline Casts (0-2) /lpf Urine Mucus (None) /hpf Urine Yeast (Budding) (None) /hpf Microbiology - Last 24 Hours (Table) 04/20/18 15:41 Urine Culture - Preliminary Urine,Voided CT scan - abdomen: report reviewed (Dr. Mcdaniel) US - abdomen: report reviewed (Dr. Mcdaniel) Assessment and Plan (1) Alcoholic hepatitis with ascites Current Visit: Yes Status: Acute Code(s): K70.11 - ALCOHOLIC HEPATITIS WITH ASCITES SNOMED Code(s): 275117970 (2) Alcohol abuse Current Visit: Yes Status: Acute Code(s): F10.10 - ALCOHOL ABUSE, UNCOMPLICATED SNOMED Code(s): 15157950 (3) Alcoholic liver disease Current Visit: Yes Status: Acute Code(s): K70.9 - ALCOHOLIC LIVER DISEASE, UNSPECIFIED SNOMED Code(s): 45980861 (4) Abdominal pain Narrative/Plan: Suspect underlying GERD alcohol gastritis Current Visit: Yes Status: Acute Code(s): R10.9 - UNSPECIFIED ABDOMINAL PAIN SNOMED Code(s): 12287716 (5) UTI (urinary tract infection) Current Visit: No Status: Acute Code(s): N39.0 - URINARY TRACT INFECTION, SITE NOT SPECIFIED SNOMED Code(s): 91392784 (6) Cirrhosis Current Visit: Yes Status: Acute Code(s): K74.60 - UNSPECIFIED CIRRHOSIS OF LIVER SNOMED Code(s): 56304146 (7) Thrombocytopenia Current Visit: Yes Status: Acute Code(s): D69.6 - THROMBOCYTOPENIA, UNSPECIFIED SNOMED Code(s): 992838520 (8) Diarrhea Narrative/Plan: Chronic nonspecific and possibly alcohol-related possible IBS Current Visit: Yes Status: Chronic Code(s): R19.7 - DIARRHEA, UNSPECIFIED SNOMED Code(s): 92191814 Plan: 1. PT/INR. Hepatitis screen. AFP. Alcohol abstinence advised. Stool studies ordered. 2. Outpatient EGD colonoscopy recommended for evaluation of GERD type symptoms and diarrhea. Additionally outpatient paracentesis was also discussed. 3. General surgery following HIDA scan pending. Thank you for this kind referral and the opportunity to participate in the care of your patient. This consultation was discussed with Dr. Mcdaniel. The impression and plan of care have been directed as dictated.
--- NOTE | 2018-04-21 16:33 | NM ---
EXAMINATION TYPE: NM hepatobiliary w CCK DATE OF EXAM: 04/21/2018 COMPARISON: NONE INDICATION: Right upper quadrant pain TECHNIQUE: After the intravenous administration of 4.6 mCi Tc 99m Mebrofenin hepatobiliary scintigrap hy is performed. Images were obtained immediately post injection. FINDINGS: There is prompt uptake and excretion of radiotracer by the liver. Extrahepatic ducts are identified at 26 minutes. The gallbladder is visualized within 31 minutes. Small bowel activity is noted within 51 minutes. At one hour CCK was administered, patient was injected with 2.25 mcg of Kinevac, and gallbladder ejec tion fraction is calculated at 91 %, which is in the elevated range. (Normal >35% and <80%.). IMPRESSION: 1. Correlate for biliary hyperkinesia.
[2018-04-21 16:39] LABS: Glucose,Whole Blood 76 mg/dL (75-99)
[2018-04-21] MEDS: THIAMINE 100 MG TAB PO SCH (16:48)
[2018-04-21 19:49] LABS: Glucose,Whole Blood 98 mg/dL (75-99)
--- NOTE | 2018-04-21 20:01 | P.GSCN ---
History of Present Illness Consult date: 04/21/18 Reason for Consult: Right upper quadrant abdominal pain History of present illness: 53-year-old female presents with complaints of blood in her urine and right upper quadrant abdominal pain. Patient has a history of heavy alcohol use and hepatitis C. She was told in the past that she did have some liver disease. Her liver enzymes are elevated consistent with cirrhosis. Ultrasound showed a slightly thickened gallbladder wall without gallstones. CAT scan showed hepatosplenomegaly with ascites. Nodular changes of the liver consistent with cirrhosis. No additional abnormalities to explain her pain currently. She does describe some leg swelling as well. Platelet level is low. She underwent a HIDA scan which showed a relatively normal function. Review of Systems The patient denies any acute changes in vision or hearing, no dysphagia or odynophagia, no chest pain or shortness of breath, no dysuria or hematuria, no headache, no runny nose, no rectal bleeding or melena, no unexplained weight loss Past Medical History Past Medical History: COPD, Hypertension Additional Past Medical History / Comment(s): lower back pain History of Any Multi-Drug Resistant Organisms: None Reported Past Surgical History: Tubal Ligation Past Anesthesia/Blood Transfusion Reactions: No Reported Reaction Additional Past Anesthesia/Blood Transfusion Reaction / Comm: clausterphobia Past Psychological History: Anxiety, Depression Additional Psychological History / Comment(s): . Smoking Status: Current every day smoker Past Alcohol Use History: Occasional Additional Past Alcohol Use History / Comment(s): started smoking at age 12, used to smoke 1 ppd but has cut down to 1/2 ppd. Past Drug Use History: None Reported - Past Family History Father History Unknown: Yes Family Medical History: Cancer Additional Family Medical History / Comment(s): unk type Mother History Unknown: Yes Family Medical History: AFIB, Congestive Heart Failure (CHF), Myocardial Infarction ([place]), Seizure Disorder Medications and Allergies Home Medications Medication Instructions Recorded Confirmed Type ALPRAZolam [Xanax] 0.5 mg PO BID 04/20/18 04/20/18 History HYDROcodone/APAP 10-325MG [[place] 1 tab PO Q12H PRN 04/20/18 04/20/18 History 10-325] Phentermine HCl [Adipex-P] 37.5 mg PO QAM 04/20/18 04/20/18 History Allergies Allergy/AdvReac Type Severity Reaction Status Date / Time bupropion [From Wellbutrin] Allergy seizure Verified 04/20/18 16:32 Surgical - Exam Vital Signs Temp Pulse Resp BP Pulse Ox 98.2 F 89 18 160/94 98 04/20/18 15:38 04/20/18 15:38 04/20/18 15:38 04/20/18 15:38 04/20/18 15:38 Physical exam: General: Well-developed, well-nourished HEENT: Normocephalic, sclerae nonicteric Abdomen: Mild distention, mild right upper quadrant tenderness Extremities: Mild bilateral lower extremity edema Neuro: Alert and oriented Results - Labs 04/21/18 08:39 04/21/18 08:39 Abnormal Lab Results - Last 24 Hours (Table) 04/21/18 04/21/18 Range/Units 08:39 08:39 WBC 3.6 L (3.8-10.6) k/uL RBC 3.58 L (3.80-5.40) m/uL Hgb 11.3 L (11.4-16.0) gm/dL RDW 15.6 H (11.5-15.5) % Plt Count 82 L (150-450) k/uL Chloride 111 H (98-107) mmol/L Creatinine 1.06 H (0.52-1.04) mg/dL Glucose 71 L (74-99) mg/dL Calcium 7.6 L (8.4-10.2) mg/dL Total Bilirubin 1.8 H (0.2-1.3) mg/dL AST 112 H (14-36) U/L ALT 79 H (9-52) U/L Total Protein 5.4 L (6.3-8.2) g/dL Albumin 2.0 L (3.5-5.0) g/dL Microbiology - Last 24 Hours (Table) 04/20/18 15:41 Urine Culture - Preliminary Urine,Voided Diabetes panel 04/21/18 Range/Units 08:39 Sodium 140 (137-145) mmol/L Potassium 4.1 (3.5-5.1) mmol/L Chloride 111 H (98-107) mmol/L Carbon Dioxide 27 (22-30) mmol/L BUN 14 (7-17) mg/dL Creatinine 1.06 H (0.52-1.04) mg/dL Glucose 71 L (74-99) mg/dL Calcium 7.6 L (8.4-10.2) mg/dL AST 112 H (14-36) U/L ALT 79 H (9-52) U/L Alkaline Phosphatase 75 (38-126) U/L Total Protein 5.4 L (6.3-8.2) g/dL Albumin 2.0 L (3.5-5.0) g/dL Calcium panel 04/21/18 Range/Units 08:39 Calcium 7.6 L (8.4-10.2) mg/dL Albumin 2.0 L (3.5-5.0) g/dL Pituitary panel 04/21/18 Range/Units 08:39 Sodium 140 (137-145) mmol/L Potassium 4.1 (3.5-5.1) mmol/L Chloride 111 H (98-107) mmol/L Carbon Dioxide 27 (22-30) mmol/L BUN 14 (7-17) mg/dL Creatinine 1.06 H (0.52-1.04) mg/dL Glucose 71 L (74-99) mg/dL Calcium 7.6 L (8.4-10.2) mg/dL Adrenal panel 04/21/18 Range/Units 08:39 Sodium 140 (137-145) mmol/L Potassium 4.1 (3.5-5.1) mmol/L Chloride 111 H (98-107) mmol/L Carbon Dioxide 27 (22-30) mmol/L BUN 14 (7-17) mg/dL Creatinine 1.06 H (0.52-1.04) mg/dL Glucose 71 L (74-99) mg/dL Calcium 7.6 L (8.4-10.2) mg/dL Total Bilirubin 1.8 H (0.2-1.3) mg/dL AST 112 H (14-36) U/L ALT 79 H (9-52) U/L Alkaline Phosphatase 75 (38-126) U/L Total Protein 5.4 L (6.3-8.2) g/dL Albumin 2.0 L (3.5-5.0) g/dL Assessment and Plan (1) Abdominal pain Narrative/Plan: Patient with right upper quadrant abdominal pain. May be on the basis of progression of her cirrhosis. HIDA scan shows normal functioning gallbladder. Continue observation for now. Appreciate GI input. No surgical intervention planned. Current Visit: Yes Status: Acute Code(s): R10.9 - UNSPECIFIED ABDOMINAL PAIN SNOMED Code(s): 47800878
[2018-04-21] MEDS ORDERED: ALPRAZolam 0.5 MG TAB PO SCH (21:00)
[2018-04-22] MEDS: MORPHINE SULFATE 4 MG/ML SYRINGE IVP PRN ×6 (02:09→22:50)
[2018-04-22 06:47] LABS: Glucose,Whole Blood 82 mg/dL (75-99)
[2018-04-22 07:51] LABS: INR 1.4 (<1.2)
[2018-04-22 07:52] LABS: Prothrombin Time 13.5 sec (9.0-12.0)
[2018-04-22 07:54] LABS: Calcium 7.4 mg/dL (8.4-10.2); Potassium 3.9 mmol/L (3.5-5.1); Total Bilirubin 1.6 mg/dL (0.2-1.3); Total Protein 5.4 g/dL (6.3-8.2)
[2018-04-22 07:55] LABS: Basophils % (A) 1 %; Eosinophils # (A) 0.2 k/uL (0-0.7); Eosinophils % (A) 4 %; HCT 33.9 % (34.0-46.0); HGB 10.8 gm/dL (11.4-16.0); Hypochromasia Slight; Lymphocytes # (A) 1.1 k/uL (1.0-4.8); Lymphocytes % (A) 31 %; MCH 31.3 pg (25.0-35.0); MCHC 31.9 g/dL (31.0-37.0); Macrocytosis Slight; Mean Platelet Volume 8.5; Monocytes # (A) 0.5 k/uL (0-1.0); Monocytes % (A) 13 %; Neutrophils # (A) 1.8 k/uL (1.3-7.7); Neutrophils % (A) 48 %; RBC 3.46 m/uL (3.80-5.40); RDW 15.4 % (11.5-15.5); WBC 3.7 k/uL (3.8-10.6)
[2018-04-22 07:56] LABS: Platelet Count 91 k/uL (150-450)
[2018-04-22] MEDS: PANTOPRAZOLE 40 MG TABLET PO SCH (08:29)
[2018-04-22] MEDS: AMPICILLIN-SULBACTAM 3 GM in SODIUM CHLORIDE 0.9% 100 ML IVPB SCH ×2 (08:29→16:06)
--- NOTE | 2018-04-22 11:10 | P.PN ---
Subjective Progress Note Date: 04/22/18 Principal diagnosis: Right upper quadrant pain Patient doing better today. Pain is improved. White blood cell count normal. Tolerating diet. Objective - Vital Signs Vital signs: Vital Signs Temp 98 F 04/22/18 06:59 Pulse 80 04/22/18 06:59 Resp 12 04/22/18 06:59 BP 126/81 04/22/18 06:59 Pulse Ox 95 04/22/18 06:59 Intake & Output 04/21/18 04/22/18 04/22/18 18:59 06:59 18:59 Intake Total 800 1150 Balance 800 1150 Intake: Intake, IV Titration 800 1150 Amount Ampicillin-Sulbactam 3 gm 100 100 In Sodium Chloride 0.9% 100 ml @ 100 mls/hr IVPB Q8HR [facility] Rx#:[id number] Sodium Chloride 0.9% 1, 700 1050 000 ml @ 100 mls/hr IV . Q10H ONE Rx#:[id number] Other: Voiding Method Toilet # Voids 2 1 - Exam Abdomen: Soft, nondistended, mild epigastric tenderness - Labs CBC & Chem 7: 04/22/18 06:07 04/22/18 06:07 Labs: Abnormal Lab Results - Last 24 Hours (Table) 04/22/18 04/22/18 04/22/18 Range/Units 06:07 06:07 06:07 WBC 3.7 L (3.8-10.6) k/uL RBC 3.46 L (3.80-5.40) m/uL Hgb 10.8 L (11.4-16.0) gm/dL Hct 33.9 L (34.0-46.0) % Plt Count 91 L (150-450) k/uL PT 13.5 H (9.0-12.0) sec INR 1.4 H (<1.2) Chloride 109 H (98-107) mmol/L Creatinine 1.10 H (0.52-1.04) mg/dL Calcium 7.4 L (8.4-10.2) mg/dL Total Bilirubin 1.6 H (0.2-1.3) mg/dL AST 104 H (14-36) U/L ALT 79 H (9-52) U/L Total Protein 5.4 L (6.3-8.2) g/dL Albumin 2.0 L (3.5-5.0) g/dL Microbiology - Last 24 Hours (Table) 04/20/18 15:41 Urine Culture - Final Urine,Voided 04/20/18 21:20 Blood Culture - Preliminary Blood No Growth after 24 hours Assessment and Plan (1) Abdominal pain Narrative/Plan: Continue diet as tolerated. Pain appears to be related to hepatic inflammation. No surgical intervention planned. We'll sign off. Current Visit: Yes Status: Acute Code(s): R10.9 - UNSPECIFIED ABDOMINAL PAIN SNOMED Code(s): 81801086
[2018-04-22 11:26] LABS: Hepatitis A Antibody IgM Non-Reactive (Non-Reactive); Hepatitis B Core IgM Non-Reactive (Non-Reactive)
[2018-04-22] MEDS: THIAMINE 100 MG TAB PO SCH ×2 (11:26→16:57)
[2018-04-22 11:34] LABS: Glucose,Whole Blood 90 mg/dL (75-99)
--- NOTE | 2018-04-22 15:44 | P.PN ---
Subjective Progress Note Date: 04/22/18 This is a 53-year-old patient who presented to the emergency room after visiting her primary care provider for abdominal pain. She also states she has been noticing blood in her urine. Patient states she's been having severe right upper quadrant pain. Patient has a known medical history of COPD, hypertension and low back pain. Patient did state that she does drink alcohol daily sometimes up to a 6 pack of beer per day. Gallbladder ultrasound completed in Emergency room showing an overall impression that is negative for cholecystitis however the gallbladder is mildly distended gallbladder wall is top normal in thickness, Small Volume Peritoneal Fluid in the Parahepatic Spaces. CT of the abdomen and pelvis completed showing ascites. Mild splenomegaly. Irregular liver consistent with cirrhosis. No dilated ducts. Dr. Jain has been ordered per surgical consult. Platelet level 93, AST 136, ALT 95 and total bilirubin 1.8. NM Hepatobiliary w CCK has been ordered per surgical services and planning to be completed at [address] Mcdaniel per GI has been consulted for cirrhosis and elevated liver enzymes. Patient currently has Unasyn for antibiotic. She denies chest pain or shortness of breath. Does report right upper quadrant pain with intermittent diarrhea for the past couple months. C. diff stool sample has been ordered. Patient remains nothing by mouth. Glucose 71. Accu-Cheks have been ordered. Objective - Vital Signs Vital signs: Vital Signs Temp 98 F 04/22/18 06:59 Pulse 99 04/22/18 15:00 Resp 16 04/22/18 15:00 BP 152/82 04/22/18 15:00 Pulse Ox 90 L 04/22/18 15:00 Intake & Output 04/21/18 04/22/18 04/22/18 18:59 06:59 18:59 Intake Total 800 1150 100 Balance 800 1150 100 Intake: Intake, IV Titration 800 1150 100 Amount Ampicillin-Sulbactam 3 gm 100 100 100 In Sodium Chloride 0.9% 100 ml @ 100 mls/hr IVPB Q8HR [facility] Rx#:[id number] Sodium Chloride 0.9% 1, 700 1050 000 ml @ 100 mls/hr IV . Q10H ONE Rx#:[id number] Other: Voiding Method Toilet # Voids 2 1 - Exam Head normocephalic and atraumatic Neck supple no JVD no goiter Lungs clear to auscultation bilaterally no wheezing or crackles Heart regular rate and rhythm S1-S2, no rub or gallop Abdomen is soft with mild tenderness in the right upper quadrant nondistended positive bowel sounds. RUQ pain to palpation Extremities no edema Neuro alert and orientated to 3 - Labs CBC & Chem 7: 04/22/18 06:07 04/22/18 06:07 Labs: Abnormal Lab Results - Last 24 Hours (Table) 04/22/18 04/22/18 04/22/18 Range/Units 06:07 06:07 06:07 WBC 3.7 L (3.8-10.6) k/uL RBC 3.46 L (3.80-5.40) m/uL Hgb 10.8 L (11.4-16.0) gm/dL Hct 33.9 L (34.0-46.0) % Plt Count 91 L (150-450) k/uL PT 13.5 H (9.0-12.0) sec INR 1.4 H (<1.2) Chloride 109 H (98-107) mmol/L Creatinine 1.10 H (0.52-1.04) mg/dL Calcium 7.4 L (8.4-10.2) mg/dL Total Bilirubin 1.6 H (0.2-1.3) mg/dL AST 104 H (14-36) U/L ALT 79 H (9-52) U/L Total Protein 5.4 L (6.3-8.2) g/dL Albumin 2.0 L (3.5-5.0) g/dL Microbiology - Last 24 Hours (Table) 04/20/18 15:41 Urine Culture - Final Urine,Voided 04/20/18 21:20 Blood Culture - Preliminary Blood No Growth after 24 hours Assessment and Plan Plan: 1. Right upper quadrant pain. Ultrasound of gallbladder completed emergency room showing overall impression is negative for cholecystitis, however the gallbladder is mildly distended gallbladder while top normal in thickness. There is small volume of peritoneal fluid in perihepatic spaces. Dr. Jain per surgical services have been consulted. Patient kept nothing by mouth. NM hepatobiliary scan has been ordered for today at 3. Unasyn IV antibiotic has been ordered. Blood and urine current cultures have been ordered. Most likely cause of pain at this time is acute alcoholic hepatitis. 2. Elevated liver enzymes related to possible liver cirrhosis. CT of abdomen and pelvis completed showing phase. Mild splenomegaly. Irregular liver cirrhosis. No dilated ducts area platelet level 93, AST [address] Mcdaniel per GI services have been consulted. Patient does report a history of alcohol use up to a sixpack per day. Prolonged counseling done during this admission in regard to complete abstinence from alcohol 3. Hematuria. Urinary analysis completed showing large amount of blood in urine. Hemoglobin level 11.3. We'll continue to monitor closely. 4. Thrombocytopenia. Platelet level 93. This does appear chronic for this patient. She does admit to drinking up to a sixpack of beer per day. We'll hold off on any anticoagulation at this point. GI services have been consulted. 5. Hypoglycemia. Blood sugar sugar 71. AC/HS Accu-Cheks have been ordered. 6. History of COPD. No exacerbation at this time 7. History of essential hypertension. Not currently on any medication 8. Chronic low back pain. Patient's home dose of [place] currently on hold due to elevated liver enzymes. Morphine has been ordered for pain control at this time.
[2018-04-22] MEDS ORDERED: LACTULOSE 20 GM/30 ML CUP PO ONE (16:00)
--- NOTE | 2018-04-22 16:56 | PN ---
PROGRESS NOTE REQUESTING PHYSICIAN: Dr. Mason The patient is a 53-year-old pleasant white female admitted to hospital with severe right upper quadrant abdominal pain for the last few days duration. She had some associated nausea, vomiting. She has history of heavy alcohol abuse. At the time of admission hospital was noted to have elevated serum transaminases consistent with alcohol hepatitis This morning she is feeling better. No more nausea, vomiting. Still has the pain in the right upper quadrant area. No fever, chills, night sweats. PHYSICAL EXAMINATION: Appears comfortable. No apparent distress. Vital signs are stable. Blood pressure is 113/79, pulse 50, temperature 98.2. HEENT examination unremarkable. Conjunctivae pink. Sclerae anicteric. Oral cavity, no lesions. No JVD or lymph node enlargement. Chest was clear to auscultation. Heart: Regular rate and rhythm. Abdomen is soft. Bowel sounds are positive. No organomegaly. EXTREMITIES: No pedal edema. SKIN: No rashes. NEURO: Alert and oriented. LABS: Done today WBC 3.7, hemoglobin 10.8, platelets 91,000. PT/INR 1.4. AST and ALT are 104 and 79 respectively. T bilirubin 1.6. HIDA scan showed decreased ejection fraction of the gallbladder. IMPRESSION: 1. Right upper quadrant abdominal pain, nausea, vomiting for the last few days . 2. Elevated LFTs with acute alcoholic hepatitis. 3. Heavy alcohol abuse. RECOMMENDATION: 1. Continue with Protonix 40 mg daily. 2. Advance diet as tolerated. 3. Acute alcoholic hepatitis and importance of abstinence from alcohol. 4. The patient can be discharged home with outpatient follow up in 3-4 weeks. MMODL / IJN: [id number] /
[2018-04-22 17:10] LABS: Glucose,Whole Blood 92 mg/dL (75-99)
[2018-04-23] MEDS: AMPICILLIN-SULBACTAM 3 GM in SODIUM CHLORIDE 0.9% 100 ML IVPB SCH ×3 (02:23→16:20)
[2018-04-23] MEDS: MORPHINE SULFATE 4 MG/ML SYRINGE IVP PRN ×4 (02:46→20:31)
[2018-04-23 07:07] LABS: Glucose,Whole Blood 77 mg/dL (75-99)
[2018-04-23 07:30] LABS: Albumin 2.1 g/dL (3.5-5.0); Calcium 7.7 mg/dL (8.4-10.2); Potassium 3.8 mmol/L (3.5-5.1); Total Bilirubin 2.2 mg/dL (0.2-1.3); Total Protein 5.5 g/dL (6.3-8.2)
[2018-04-23 07:37] LABS: Basophils % (A) 1 %; Eosinophils # (A) 0.1 k/uL (0-0.7); Eosinophils % (A) 3 %; HCT 34.8 % (34.0-46.0); HGB 11.4 gm/dL (11.4-16.0); Lymphocytes # (A) 1.3 k/uL (1.0-4.8); Lymphocytes % (A) 33 %; MCH 32.1 pg (25.0-35.0); MCHC 32.7 g/dL (31.0-37.0); MCV 98.1 fL (80.0-100.0); Macrocytosis Slight; Mean Platelet Volume 7.7; Monocytes # (A) 0.6 k/uL (0-1.0); Monocytes % (A) 14 %; Neutrophils # (A) 1.9 k/uL (1.3-7.7); Neutrophils % (A) 47 %; RBC 3.55 m/uL (3.80-5.40); RDW 15.6 % (11.5-15.5); WBC 4.1 k/uL (3.8-10.6)
[2018-04-23 07:38] LABS: Platelet Count 80 k/uL (150-450)
[2018-04-23] MEDS: PANTOPRAZOLE 40 MG TABLET PO SCH (08:21)
[2018-04-23] MEDS: THIAMINE 100 MG TAB PO SCH ×2 (11:38→16:20)
[2018-04-23 11:39] LABS: Glucose,Whole Blood 95 mg/dL (75-99)
--- NOTE | 2018-04-23 15:46 | P.PN ---
Subjective Progress Note Date: 04/23/18 This is a 53-year-old patient who presented to the emergency room after visiting her primary care provider for abdominal pain. She also states she has been noticing blood in her urine. Patient states she's been having severe right upper quadrant pain. Patient has a known medical history of COPD, hypertension and low back pain. Patient did state that she does drink alcohol daily sometimes up to a 6 pack of beer per day. Gallbladder ultrasound completed in Emergency room showing an overall impression that is negative for cholecystitis however the gallbladder is mildly distended gallbladder wall is top normal in thickness, Small Volume Peritoneal Fluid in the Parahepatic Spaces. CT of the abdomen and pelvis completed showing ascites. Mild splenomegaly. Irregular liver consistent with cirrhosis. No dilated ducts. Dr. Jain has been ordered per surgical consult. Platelet level 93, AST 136, ALT 95 and total bilirubin 1.8. NM Hepatobiliary w CCK has been ordered per surgical services and planning to be completed at [address] Mcdaniel per GI has been consulted for cirrhosis and elevated liver enzymes. Patient currently has Unasyn for antibiotic. She denies chest pain or shortness of breath. Does report right upper quadrant pain with intermittent diarrhea for the past couple months. C. diff stool sample has been ordered. Patient remains nothing by mouth. Glucose 71. Accu-Cheks have been ordered. On 04/23/2018 patient is alert and oriented 3 in no apparent distress she had an episode of vomiting last night she is still complaining of right upper quadrant pain labs revealing worsening of bilirubin level which is at 2.2 today also hepatitis C titers are positive, otherwise patient denies any fever or chills no headache or dizziness no chest pain no shortness of breath no cough no palpitation and no urinary symptoms. Objective - Vital Signs Vital signs: Vital Signs Temp 98.3 F 04/23/18 14:20 Pulse 71 04/23/18 14:20 Resp 16 04/23/18 14:20 BP 125/74 04/23/18 14:20 Pulse Ox 98 04/23/18 14:20 Intake & Output 04/22/18 04/23/18 04/23/18 18:59 06:59 18:59 Intake Total 100 450 Balance 100 450 Intake: Intake, IV Titration 100 100 Amount Ampicillin-Sulbactam 3 gm 100 100 In Sodium Chloride 0.9% 100 ml @ 100 mls/hr IVPB Q8HR [facility] Rx#:[id number] Oral 350 Other: Voiding Method Toilet # Voids 2 - Exam Head normocephalic and atraumatic Neck supple no JVD no goiter Lungs clear to auscultation bilaterally no wheezing or crackles Heart regular rate and rhythm S1-S2, no rub or gallop Abdomen is soft with mild tenderness in the right upper quadrant nondistended positive bowel sounds. RUQ pain to palpation Extremities no edema Neuro alert and orientated to 3 - Labs CBC & Chem 7: 04/23/18 06:34 04/23/18 06:34 Labs: Abnormal Lab Results - Last 24 Hours (Table) 04/22/18 04/22/18 04/23/18 Range/Units 06:07 06:07 06:34 RBC 3.55 L (3.80-5.40) m/uL RDW 15.6 H (11.5-15.5) % Plt Count 80 L (150-450) k/uL Chloride (98-107) mmol/L Creatinine (0.52-1.04) mg/dL Calcium (8.4-10.2) mg/dL Total Bilirubin (0.2-1.3) mg/dL AST (14-36) U/L ALT (9-52) U/L Total Protein (6.3-8.2) g/dL Albumin (3.5-5.0) g/dL Tumor Marker AFP 8.3 H (0.0-7.9) ng/mL Hep C IgG Ab Reactive H (Non-Reactive) 04/23/18 Range/Units 06:34 RBC (3.80-5.40) m/uL RDW (11.5-15.5) % Plt Count (150-450) k/uL Chloride 113 H (98-107) mmol/L Creatinine 1.10 H (0.52-1.04) mg/dL Calcium 7.7 L (8.4-10.2) mg/dL Total Bilirubin 2.2 H (0.2-1.3) mg/dL AST 102 H (14-36) U/L ALT 73 H (9-52) U/L Total Protein 5.5 L (6.3-8.2) g/dL Albumin 2.1 L (3.5-5.0) g/dL Tumor Marker AFP (0.0-7.9) ng/mL Hep C IgG Ab (Non-Reactive) Microbiology - Last 24 Hours (Table) 04/20/18 21:20 Blood Culture - Preliminary Blood No Growth after 48 hours Assessment and Plan Plan: 1. Right upper quadrant pain. Ultrasound of gallbladder completed emergency room showing overall impression is negative for cholecystitis, however the gallbladder is mildly distended gallbladder while top normal in thickness. There is small volume of peritoneal fluid in perihepatic spaces. Dr. Jain per surgical services have been consulted. Patient kept nothing by mouth. NM hepatobiliary scan has been ordered for today at 3. Unasyn IV antibiotic has been ordered. Blood and urine current cultures have been ordered. Most likely cause of pain at this time is acute alcoholic hepatitis. 2. Elevated liver enzymes related to possible liver cirrhosis. CT of abdomen and pelvis completed showing phase. Mild splenomegaly. Irregular liver cirrhosis. No dilated ducts area platelet level 93, AST [address] Mcdaniel per GI services have been consulted. Patient does report a history of alcohol use up to a sixpack per day. Prolonged counseling done during this admission in regard to complete abstinence from alcohol bilirubin is up-to-date 2.2 hepatitis C titer is positive 3. Hematuria. Urinary analysis completed showing large amount of blood in urine. Hemoglobin level 11.3. We'll continue to monitor closely. 4. Thrombocytopenia. Platelet level 93. This does appear chronic for this patient. She does admit to drinking up to a sixpack of beer per day. We'll hold off on any anticoagulation at this point. GI services have been consulted. 5. Hypoglycemia. Blood sugar sugar 71. AC/HS Accu-Cheks have been ordered. 6. History of COPD. No exacerbation at this time 7. History of essential hypertension. Not currently on any medication 8. Chronic low back pain. Patient's home dose of [place] currently on hold due to elevated liver enzymes. Morphine has been ordered for pain control at this time. Continue was current management recheck labs in a.m. Will ask for gastroenterology reevaluation in a.m.
[2018-04-23 17:02] LABS: Glucose,Whole Blood 92 mg/dL (75-99)
--- NOTE | 2018-04-23 19:06 | PN ---
PROGRESS NOTE DATE OF DICTATION: 04/23/2018 The patient is a 53 -year-old pleasant white female admitted to the hospital with right upper quadrant abdominal pain. She has history of heavy alcohol abuse, was noted to have elevated serum transaminase. She did have ultrasound of the gallbladder as well as a CT scan done that showed evidence of fatty liver disease. She is feeling somewhat better today. PHYSICAL EXAMINATION: Appears comfortable in no apparent distress. VITAL SIGNS: Stable. Blood pressure is 135/82, pulse is 78, temperature 98. HEENT examination is unremarkable. Conjunctivae pink. Sclerae anicteric. Oral cavity no lesions. Neck no jugular venous distention or lymph node enlargement. Chest was clear to auscultation. HEART: Regular rate and rhythm. ABDOMEN: Soft. Bowel sounds are positive. No organomegaly. Extremities: No pedal edema. Skin no rashes. NEUROLOGIC: Alert and oriented x3. No focal deficits. LABS: WBC 4.1, hemoglobin 11.4, platelets are normal. Basic metabolic panel is within normal limits. T-bilirubin is 2.2, AST 102, ALT 73. Hepatitis serologies for A, B, are negative but hepatitis C antibody is positive. IMPRESSION: 1. Elevated LFTs secondary to alcoholic hepatitis. 2. Positive hepatitis C antibody. Rule out chronic hepatitis C infection. 3. Right upper quadrant abdominal pain, probably related to acute alcoholic hepatitis gradually improving. RECOMMENDATIONS: 1. Obtain hepatitis C viral , PCR and genotype. 2. Abstinence from alcohol. 3. Advance diet as tolerated. 4. If her symptoms continue to improve, she can be discharged home today or tomorrow with outpatient follow up in 3-4 weeks. Thank you for this consultation. MMODL / IJN: [id number] /
[2018-04-23 20:00] LABS: Glucose,Whole Blood 105 mg/dL (75-99)
[2018-04-24] MEDS: AMPICILLIN-SULBACTAM 3 GM in SODIUM CHLORIDE 0.9% 100 ML IVPB SCH ×3 (00:42→16:07)
[2018-04-24] MEDS: MORPHINE SULFATE 4 MG/ML SYRINGE IVP PRN ×3 (00:44→09:09)
[2018-04-24 06:54] LABS: Glucose,Whole Blood 95 mg/dL (75-99)
[2018-04-24] MEDS: PANTOPRAZOLE 40 MG TABLET PO SCH (07:56)
[2018-04-24 07:59] LABS: Albumin 1.9 g/dL (3.5-5.0); Calcium 7.8 mg/dL (8.4-10.2); Potassium 3.8 mmol/L (3.5-5.1); Total Bilirubin 1.8 mg/dL (0.2-1.3); Total Protein 5.3 g/dL (6.3-8.2)
[2018-04-24 08:21] LABS: Basophils % (A) 1 %; Eosinophils # (A) 0.1 k/uL (0-0.7); Eosinophils % (A) 3 %; HCT 33.8 % (34.0-46.0); Lymphocytes # (A) 1.3 k/uL (1.0-4.8); Lymphocytes % (A) 32 %; MCH 32.1 pg (25.0-35.0); MCHC 32.5 g/dL (31.0-37.0); MCV 98.8 fL (80.0-100.0); Macrocytosis Slight; Monocytes # (A) 0.5 k/uL (0-1.0); Monocytes % (A) 13 %; Neutrophils # (A) 1.9 k/uL (1.3-7.7); Neutrophils % (A) 47 %; RBC 3.42 m/uL (3.80-5.40); RDW 15.6 % (11.5-15.5)
[2018-04-24 08:22] LABS: Platelet Count 77 k/uL (150-450)
[2018-04-24] MEDS: THIAMINE 100 MG TAB PO SCH ×2 (11:41→17:16)
[2018-04-24 11:46] LABS: Glucose,Whole Blood 87 mg/dL (75-99)
--- NOTE | 2018-04-24 15:46 | P.PN ---
Subjective Progress Note Date: 04/24/18 This is a 53-year-old patient who presented to the emergency room after visiting her primary care provider for abdominal pain. She also states she has been noticing blood in her urine. Patient states she's been having severe right upper quadrant pain. Patient has a known medical history of COPD, hypertension and low back pain. Patient did state that she does drink alcohol daily sometimes up to a 6 pack of beer per day. Gallbladder ultrasound completed in Emergency room showing an overall impression that is negative for cholecystitis however the gallbladder is mildly distended gallbladder wall is top normal in thickness, Small Volume Peritoneal Fluid in the Parahepatic Spaces. CT of the abdomen and pelvis completed showing ascites. Mild splenomegaly. Irregular liver consistent with cirrhosis. No dilated ducts. Dr. Jain has been ordered per surgical consult. Platelet level 93, AST 136, ALT 95 and total bilirubin 1.8. NM Hepatobiliary w CCK has been ordered per surgical services and planning to be completed at [address] Mcdaniel per GI has been consulted for cirrhosis and elevated liver enzymes. Patient currently has Unasyn for antibiotic. She denies chest pain or shortness of breath. Does report right upper quadrant pain with intermittent diarrhea for the past couple months. C. diff stool sample has been ordered. Patient remains nothing by mouth. Glucose 71. Accu-Cheks have been ordered. On 04/23/2018 patient is alert and oriented 3 in no apparent distress she had an episode of vomiting last night she is still complaining of right upper quadrant pain labs revealing worsening of bilirubin level which is at 2.2 today also hepatitis C titers are positive, otherwise patient denies any fever or chills no headache or dizziness no chest pain no shortness of breath no cough no palpitation and no urinary symptoms. On 04/24/2018 patient is currently resting comfortably in bed. Denies any nausea or vomiting at this time. Does state she is feeling improved. Total bilirubin 1.8. AST improving at 95, ALT improving at 70. Patient denies chest pain or shortness breath at this time. Objective - Vital Signs Vital signs: Vital Signs Temp 97.8 F 04/24/18 15:00 Pulse 84 04/24/18 15:00 Resp 16 04/24/18 15:00 BP 116/70 04/24/18 15:00 Pulse Ox 95 04/24/18 15:00 Intake & Output 04/23/18 04/24/18 04/24/18 18:59 06:59 18:59 Intake Total 100 450 400 Balance 100 450 400 Intake: Intake, IV Titration 100 100 100 Amount Ampicillin-Sulbactam 3 gm 100 100 100 In Sodium Chloride 0.9% 100 ml @ 100 mls/hr IVPB Q8HR [facility] Rx#:[id number] Oral 350 300 Other: Voiding Method Toilet Toilet # Voids 2 1 2 - Exam Head normocephalic Neck supple Lungs clear to auscultation bilaterally no wheezing or crackles Heart regular rate and rhythm S1-S2, no rub or gallop Abdomen is soft nontender nondistended positive bowel sounds no hepatosplenomegaly Extremities no edema Neuro alert and orientated to 3 - Labs CBC & Chem 7: 04/24/18 06:40 04/24/18 06:40 Labs: Abnormal Lab Results - Last 24 Hours (Table) 04/23/18 04/24/18 04/24/18 Range/Units 19:59 06:40 06:40 RBC 3.42 L (3.80-5.40) m/uL Hgb 11.0 L (11.4-16.0) gm/dL Hct 33.8 L (34.0-46.0) % RDW 15.6 H (11.5-15.5) % Plt Count 77 L (150-450) k/uL Chloride 112 H (98-107) mmol/L Creatinine 1.14 H (0.52-1.04) mg/dL POC Glucose (mg/dL) 105 H (75-99) mg/dL Calcium 7.8 L (8.4-10.2) mg/dL Total Bilirubin 1.8 H (0.2-1.3) mg/dL AST 95 H (14-36) U/L ALT 70 H (9-52) U/L Total Protein 5.3 L (6.3-8.2) g/dL Albumin 1.9 L (3.5-5.0) g/dL Microbiology - Last 24 Hours (Table) 04/20/18 21:20 Blood Culture - Preliminary Blood No Growth after 72 hours Assessment and Plan Assessment: 1. Right upper quadrant pain related to hepatic inflammation. Ultrasound of gallbladder completed emergency room showing overall impression is negative for cholecystiti, however the gallbladder is mildly distended gallbladder while top normal in thickness. There is small volume of peritoneal fluid in perihepatic spaces. Dr. Jain per surgical services have been consulted. Patient kept nothing by mouth. NM hepatobiliary scan has been ordered for today at 3. Unasyn IV antibiotic has been ordered. Blood and urine current cultures have been ordered. HIDA scan completed correlating for biliary hyperkinesia. Dr. Jain surgical services believes pain appears to be related to hepatic inflammation no surgical intervention planned surgical services have signed off. Urine and blood cultures currently negative. Positive hepatitis C antibody 2. Elevated liver enzymes related to possible liver cirrhosis. CT of abdomen and pelvis completed showing phase. Mild splenomegaly. Irregular liver cirrhosis. No dilated ducts area platelet level 93, AST [address] Mcdaniel per GI services have been consulted. Patient does report a history of alcohol use up to a sixpack per day. AST improving 95. ALT is 70. Total bilirubin 1.8. Per GI elevated LFT secondary to alcoholic hepatitis 3. Hematuria. Urinary analysis completed showing large amount of blood in urine. Hemoglobin level 11.3. We'll continue to monitor closely. 4. Thrombocytopenia. Platelet level 93. This does appear chronic for this patient. She does admit to drinking up to a sixpack of beer per day. We'll hold off on any anticoagulation at this point. GI services have been consulted.. 5. Hypoglycemia. Blood sugar sugar 71. AC/HS Accu-Cheks have been ordered. 6. History of COPD. No exacerbation at this time 7. History of essential hypertension. Not currently on any medication 8. Chronic low back pain. Patient's home dose of [place] currently on hold due to elevated liver enzymes. Morphine has been ordered for pain control at this time. DVT prophylaxis SCDs due to low platelet count, GI prophylaxis Protonix Anticipate possible discharge home tomorrow I performed an examination of the patient and discussed their management with the Nurse Practitioner. I have reviewed the Nurse Practitioner's notes and agree with the documented findings and plan of care
[2018-04-24] MEDS ORDERED: traMADol 50 MG TAB PO PRN (16:07)
[2018-04-24 16:38] LABS: Glucose,Whole Blood 111 mg/dL (75-99)
[2018-04-24 19:45] LABS: Glucose,Whole Blood 107 mg/dL (75-99)
--- NOTE | 2018-04-24 19:46 | PN ---
PROGRESS NOTE DATE OF SERVICE: 04/24/2018 The patient is a 53 -year-old pleasant white female admitted to hospital with right upper quadrant abdominal pain which is gradually improving. She was diagnosed with acute alcoholic hepatitis and serum transaminases are improving. She is on a regular diet, tolerating well. She denies any new symptoms today. She reports no nausea, vomiting, she has history of heavy alcohol abuse. On physical examination, she appears comfortable in no apparent distress. Vital signs stable. Blood pressure is 130/81. Pulse rate 76, temperature 98.1. HEENT: Unremarkable. Conjunctivae pink. Sclerae anicteric. Oral cavity no lesions. Neck: No jugular venous distention or lymph node enlargement. Chest was clear to auscultation. Heart regular rate and rhythm. Abdomen soft. Mild tenderness in the epigastric area. Bowel sounds are positive. No organomegaly. EXTREMITIES: No pedal edema. Skin no rashes. Neuro: Alert and oriented times three. No focal deficits. LABORATORY DATA: Today WBC 4, hemoglobin 11, platelets 77. AST and ALT are 95 and 70 respectively. T- bili 1.8. Albumin is 2.1. IMPRESSION: Acute alcoholic hepatitis superimposed on possible underlying alcoholic cirrhosis of the liver. The patient with history of heavy alcohol abuse in the past. The serum transaminases are gradually improving. RECOMMENDATIONS: 1. Advance diet as tolerated. 2. She can be discharged home with outpatient follow up in 2 weeks. Thank you for this consultation. JULIAN / SHANE: [id number] /
[2018-04-24 22:11] LABS: Appearance,Urine Cloudy (Clear); Bilirubin,Urine Negative (Negative); Blood,Urine Large (Negative); Color,Urine Light Red; Glucose,Urine (UA) Negative (Negative); Granular Casts,Urine 4 /lpf (0); Hyaline Casts,Urine 6 /lpf (0-2); Ketones,Urine Negative (Negative); Leukocyte Esterase,Urine Trace (Negative); Mucus,Urine Rare /hpf; Nitrite,Urine Negative (Negative); PH, Urine 5.5 (5.0-8.0); Protein,Urine 2+ (Negative); RBC,Urine >182 /hpf (0-5); Specific Gravity,Urine 1.016 (1.001-1.035); Squamous Epithelial Cell,Urine 1 /hpf (0-4)
[2018-04-25] MEDS: AMPICILLIN-SULBACTAM 3 GM in SODIUM CHLORIDE 0.9% 100 ML IVPB SCH ×2 (00:04→07:09)
[2018-04-25 06:49] LABS: Glucose,Whole Blood 80 mg/dL (75-99)
[2018-04-25 07:15] VITALS: BP 122/78; PULSE 95; RESP 18; TEMP 98.6
[2018-04-25 07:41] LABS: Basophils % (A) 0 %; Eosinophils # (A) 0.1 k/uL (0-0.7); Eosinophils % (A) 3 %; HCT 33.7 % (34.0-46.0); Lymphocytes % (A) 29 %; MCH 31.5 pg (25.0-35.0); MCHC 32.6 g/dL (31.0-37.0); MCV 96.6 fL (80.0-100.0); Mean Platelet Volume 8.4; Monocytes # (A) 0.4 k/uL (0-1.0); Monocytes % (A) 12 %; Neutrophils # (A) 1.7 k/uL (1.3-7.7); Neutrophils % (A) 53 %; RBC 3.49 m/uL (3.80-5.40); RDW 15.4 % (11.5-15.5); WBC 3.3 k/uL (3.8-10.6)
[2018-04-25 07:51] LABS: Platelet Count 79 k/uL (150-450)
[2018-04-25 07:58] LABS: Albumin 1.9 g/dL (3.5-5.0); Calcium 7.9 mg/dL (8.4-10.2); Potassium 3.9 mmol/L (3.5-5.1); Total Bilirubin 2.2 mg/dL (0.2-1.3); Total Protein 5.3 g/dL (6.3-8.2)
[2018-04-25] MEDS: PANTOPRAZOLE 40 MG TABLET PO SCH (08:27)
[2018-04-25] MEDS: THIAMINE 100 MG TAB PO SCH (08:30)
--- NOTE | 2018-04-25 11:09 | P.DS ---
Providers Date of admission: 04/21/18 12:16 Expected date of discharge: 04/25/18 Attending physician: Kel Mason Consults: 04/20/18 21:00 Consult Physician Routine Consulting Provider: Rosendo Jain Reason/Comments: gallbladder Do you want consulting provider notified?: Yes Primary care physician: Kel [facility]abella [facility] Course: Discharge Diagnosis 1. Right upper quadrant pain related to hepatic inflammation. Ultrasound of gallbladder completed emergency room showing overall impression is negative for cholecystiti, however the gallbladder is mildly distended gallbladder while top normal in thickness. There is small volume of peritoneal fluid in perihepatic spaces. Dr. Jain per surgical services have been consulted. Patient kept nothing by mouth. NM hepatobiliary scan has been ordered for today at 3. Unasyn IV antibiotic has been ordered. Blood and urine current cultures have been ordered. HIDA scan completed correlating for biliary hyperkinesia. Dr. Jain surgical services believes pain appears to be related to hepatic inflammation no surgical intervention planned surgical services have signed off. Urine and blood cultures currently negative. Positive hepatitis C antibody. Discussed case with GI. Patient has been cleared for discharge. Tumor marker AFP has been reordered for 3 weeks and patient to follow-up outpatient with GI. 2. Elevated liver enzymes related to possible liver cirrhosis. CT of abdomen and pelvis completed showing phase. Mild splenomegaly. Irregular liver cirrhosis. No dilated ducts area platelet level 93, AST [address] Mcdainel per GI services have been consulted. Patient does report a history of alcohol use up to a sixpack per day. AST improving 95. ALT is 70. Total bilirubin 1.8. Per GI elevated LFT secondary to alcoholic hepatitis. AST 92, ALT 66 and total bili 2.2. GI services have clear patient for discharge patient will follow up outpatient. 3. Hematuria. Urinary analysis completed showing large amount of blood in urine. Hemoglobin level 11.3. We'll continue to monitor closely. 4. Thrombocytopenia. Platelet level 93. This does appear chronic for this patient. She does admit to drinking up to a sixpack of beer per day. We'll hold off on any anticoagulation at this point. GI services have signed off. We 'll continue to monitor patient closely outpatient per PCP and GI services. 5. Hypoglycemia. Blood sugar sugar 71. AC/HS Accu-Cheks have been ordered. Resolved 6. History of COPD. No exacerbation at this time 7. History of essential hypertension. Not currently on any medication 8. Chronic low back pain. Patient's home dose of [place] currently on hold due to elevated liver enzymes. [place] be discontinued upon discharge Hospital course This is a 53-year-old patient who presented to the emergency room after visiting her primary care provider for abdominal pain. She also states she has been noticing blood in her urine. Patient states she's been having severe right upper quadrant pain. Patient has a known medical history of COPD, hypertension and low back pain. Patient did state that she does drink alcohol daily sometimes up to a 6 pack of beer per day. Gallbladder ultrasound completed in Emergency room showing an overall impression that is negative for cholecystitis however the gallbladder is mildly distended gallbladder wall is top normal in thickness, Small Volume Peritoneal Fluid in the Parahepatic Spaces. CT of the abdomen and pelvis completed showing ascites. Mild splenomegaly. Irregular liver consistent with cirrhosis. No dilated ducts. Dr. Jain has been ordered per surgical consult. Platelet level 93, AST 136, ALT 95 and total bilirubin 1.8. NM Hepatobiliary w CCK has been ordered per surgical services and planning to be completed at [address] Mcdaniel per GI has been consulted for cirrhosis and elevated liver enzymes. Patient currently has Unasyn for antibiotic. She denies chest pain or shortness of breath. Does report right upper quadrant pain with intermittent diarrhea for the past couple months. C. diff stool sample has been ordered. Patient remains nothing by mouth. Glucose 71. Accu-Cheks have been ordered. On 04/23/2018 patient is alert and oriented 3 in no apparent distress she had an episode of vomiting last night she is still complaining of right upper quadrant pain labs revealing worsening of bilirubin level which is at 2.2 today also hepatitis C titers are positive, otherwise patient denies any fever or chills no headache or dizziness no chest pain no shortness of breath no cough no palpitation and no urinary symptoms. On 04/24/2018 patient is currently resting comfortably in bed. Denies any nausea or vomiting at this time. Does state she is feeling improved. Total bilirubin 1.8. AST improving at 95, ALT improving at 70. Patient denies chest pain or shortness breath at this time. On 04/25/2018 patient is currently resting comfortably in bed eager to go home. Discussed case with GI services. Has been cleared for discharge. Surgical services have signed out. Patient to follow-up outpatient with GI services in regard to acute alcoholic hepatitis superimposed on possible underlining alcohol cirrhosis liver. Cancer tumor AFP has been reordered for 3 weeks per GI services. Patient Condition at Discharge: Good Plan - Discharge Summary Discharge Rx Participant: No New Discharge Prescriptions: Continue ALPRAZolam [Xanax] 0.5 mg PO BID Discontinued Phentermine HCl [Adipex-P] 37.5 mg PO QAM HYDROcodone/APAP 10-325MG [[place] 10-325] 1 tab PO Q12H PRN PRN Reason: Pain Discharge Medication List ALPRAZolam [Xanax] 0.5 mg PO BID 04/20/18 [History] Follow up Appointment(s)/Referral(s): Livia Mcdaniel MD [STAFF PHYSICIAN] - 05/24/18 2:00 pm Kel Mason MD [Primary Care Provider] - 1-2 days Discharge Disposition: HOME SELF-CARE
[2018-04-25 14:19] LABS: Hepatits C Virus RNA DETECTED (Not detected)
== END 2018-04-25 11:43 | disposition home or self-care (01) | DRG 433 ==
LOC: EC 15:28 → 3SUR 21:01 → OBSVTOIN 04-21 12:16
PROVIDERS: ADMIT Internal Medicine; ATTEND Internal Medicine
DX: K70.11 Alcoholic hepatitis with ascites (principal); N39.0 Urinary tract infection, site not specified; K70.31 Alcoholic cirrhosis of liver with ascites; F32.9 Major depressive disorder, single episode, unspecified; F41.9 Anxiety disorder, unspecified; G89.29 Other chronic pain; I10 Essential (primary) hypertension; J44.9 Chronic obstructive pulmonary disease, unspecified; D69.6 Thrombocytopenia, unspecified; E16.2 Hypoglycemia, unspecified; F10.10 Alcohol abuse, uncomplicated; F17.200 Nicotine dependence, unspecified, uncomplicated; K21.9 Gastro-esophageal reflux disease without esophagitis; K58.0 Irritable bowel syndrome with diarrhea; K76.0 Fatty (change of) liver, not elsewhere classified; Z82.0 Family history of epilepsy and other diseases of the nervous system; Z82.49 Family history of ischemic heart disease and other diseases of the circulatory system; M54.5 Low back pain; R16.2 Hepatomegaly with splenomegaly, not elsewhere classified; R31.9 Hematuria, unspecified; Z86.19 Personal history of other infectious and parasitic diseases; Z88.8 Allergy status to other drugs, medicaments and biological substances; Z79.899 Other long term (current) drug therapy; F40.240 Claustrophobia; F17.210 Nicotine dependence, cigarettes, uncomplicated
CPT/HCPCS: 36415; 74176; 76705; 78227; 80053; 80074; 81001; 82105; 82150; 83605; 83690; 85025; 85610; 87040; 87086; 87522; 96361; 96365; 96375; 99285

== ENCOUNTER → 2018-05-18 | Outpatient (CLI) | payer OTHER ==
[2018-05-18 18:50] LABS: Alpha Fetoprotein, Tumor Mkr 7.5 ng/mL (0.0-7.9)
[2018-05-18 19:47] LABS: Hepatitis C IgG Antibody Reactive (Non-Reactive)
== END | disposition home or self-care (01) ==
LOC: LABWHC1 11:59
PROVIDERS: ATTEND Nurse Practitioner
DX: B19.20 Unspecified viral hepatitis C without hepatic coma (principal)
CPT/HCPCS: 36415; 82105; 86803

== ENCOUNTER 2018-09-02 13:42 | Emergency (ER) | payer OTHER ==
[2018-09-02 14:04] VITALS: RESP 18
[2018-09-02] MEDS ORDERED: ONDANSETRON 4 MG/2 ML VIAL IVP STA (14:52)
[2018-09-02] MEDS ORDERED: SODIUM CHLORIDE 0.9% 1,000 ML IV STA (14:52)
[2018-09-02] MEDS ORDERED: MORPHINE SULFATE 4 MG/ML SYRINGE IV STA (14:52)
[2018-09-02 15:26] LABS: Basophils % (A) 1 %; Eosinophils # (A) 0.1 k/uL (0-0.7); Eosinophils % (A) 1 %; HCT 31.1 % (34.0-46.0); HGB 10.5 gm/dL (11.4-16.0); Lymphocytes # (A) 0.9 k/uL (1.0-4.8); Lymphocytes % (A) 17 %; MCH 32.4 pg (25.0-35.0); MCHC 33.8 g/dL (31.0-37.0); MCV 95.9 fL (80.0-100.0); Mean Platelet Volume 7.2; Monocytes # (A) 0.5 k/uL (0-1.0); Monocytes % (A) 9 %; Neutrophils # (A) 3.8 k/uL (1.3-7.7); Neutrophils % (A) 70 %; Platelet Count 108 k/uL (150-450); RBC 3.25 m/uL (3.80-5.40); RDW 14.3 % (11.5-15.5); WBC 5.4 k/uL (3.8-10.6)
[2018-09-02 15:29] LABS: Appearance,Urine Cloudy (Clear); Bilirubin,Urine Negative (Negative); Blood,Urine Large (Negative); Color,Urine Light Red; Glucose,Urine (UA) Negative (Negative); Hyaline Casts,Urine 6 /lpf (0-2); Ketones,Urine Negative (Negative); Leukocyte Esterase,Urine Negative (Negative); Nitrite,Urine Negative (Negative); Protein,Urine 2+ (Negative); RBC,Urine >182 /hpf (0-5); Specific Gravity,Urine 1.009 (1.001-1.035); Squamous Epithelial Cell,Urine 2 /hpf (0-4); Urobilinogen,Urine <2.0 mg/dL (<2.0); WBC,Urine 18 /hpf (0-5)
[2018-09-02 15:34] LABS: Albumin 2.3 g/dL (3.5-5.0); Calcium 8.2 mg/dL (8.4-10.2); Potassium 3.7 mmol/L (3.5-5.1); Total Bilirubin 1.1 mg/dL (0.2-1.3); Total Protein 6.2 g/dL (6.3-8.2)
--- NOTE | 2018-09-02 16:04 | ED ---
General Adult HPI - General Chief complaint: Abdominal Pain Stated complaint: NVD Time Seen by Provider: 09/02/18 14:38 Source: patient, RN notes reviewed Mode of arrival: ambulatory Limitations: no limitations - History of Present Illness Initial comments: Patient is a 53-year-old female presented to the emergency room today with a chief complaint of symptoms of nausea vomiting diarrhea over the last 3 days. She does admit that she's had a difficult time keeping anything down. States she was having diarrhea over the last week ago she was able to keep down liquids. States last 3 days having a difficult time. Patient does admit to some abdominal pain on the right side of the abdomen. She does admit to a history of hepatitis C and states that this is consistent with pain that she's had before with her hep C. Patient denies any other bites or symptoms. Patient denies any recent fever, chills, shortness of breath, chest pain, back pain, numbness or tingling, dysuria or hematuria, constipation, headaches or visual changes, or any other complaints. - Related Data Home Medications Medication Instructions Recorded Confirmed ALPRAZolam [Xanax] 0.5 mg PO BID 04/20/18 04/20/18 Allergies Allergy/AdvReac Type Severity Reaction Status Date / Time bupropion [From Wellbutrin] Allergy seizure Verified 09/02/18 13:59 Review of Systems ROS Statement: Those systems with pertinent positive or pertinent negative responses have been documented in the HPI. ROS Other: All systems not noted in ROS Statement are negative. Past Medical History Past Medical History: COPD, Hypertension Additional Past Medical History / Comment(s): lower back pain from previous injury, Hep C, liver cirrhosis History of Any Multi-Drug Resistant Organisms: None Reported Past Surgical History: Tubal Ligation Past Anesthesia/Blood Transfusion Reactions: No Reported Reaction Additional Past Anesthesia/Blood Transfusion Reaction / Comment(s): clausterphobia Past Psychological History: Anxiety, Depression Smoking Status: Current every day smoker Past Alcohol Use History: Occasional Past Drug Use History: None Reported - Past Family History Father History Unknown: Yes Family Medical History: Cancer Additional Family Medical History / Comment(s): unk type Mother History Unknown: Yes Family Medical History: AFIB, Congestive Heart Failure (CHF), Myocardial Infarction ([place]), Seizure Disorder General Exam - General Exam Comments Initial Comments: General: The patient is awake and alert, in no distress, and does not appear acutely ill. Eye: Pupils are equal, round and reactive to light, extra-ocular movements are intact. No nystagmus. There is normal conjunctiva bilaterally. No signs of icterus. Ears, nose, mouth and throat: There are moist mucous membranes and no oral lesions. Neck: The neck is supple, there is no tenderness or JVD. Cardiovascular: There is a regular rate and rhythm. No murmur, rub or gallop is appreciated. Respiratory: Lungs are clear to auscultation, respirations are non-labored, breath sounds are equal. No wheezes, stridor, rales, or rhonchi. Gastrointestinal: Abdomen soft on palpation. Patient does have tenderness right upper quadrant. No rebound, guarding or CVA tenderness. Musculoskeletal: Normal ROM, no tenderness. Strength 5/5. Sensation intact. Pulses equal bilaterally 2+. Neurological: A&O x 3. CN II-XII intact, There are no obvious motor or sensory deficits. Coordination appears grossly intact. Speech is normal. Skin: Skin is warm and dry and no rashes or lesions are noted. Psychiatric: Cooperative, appropriate mood & affect, normal judgment. Limitations: no limitations Course Vital Signs 09/02/18 13:59 Temperature 98.5 F Pulse Rate 76 Respiratory 18 Rate Blood Pressure 153/87 O2 Sat by Pulse 97 Oximetry Medical Decision Making - Medical Decision Making Patient reexamined at this time shows no signs of distress she is resting comfortably. States she is feeling better after nausea medication. She has tolerated by mouth fluids here in the emergency room. Patient's labs been reviewed. Kidney function is mildly elevated which is similar to previous labs. Patient given IV fluids. Patient's urinalysis does show large amount blood. This is been compared to previous labs. Patient denies any symptoms of UTI. A culture will be ordered. Patient will be discharged with nausea medication. She is advised follow family doctor or GI specialist. Advised return if any symptoms increase worsen - Lab Data Result diagrams: 09/02/18 14:22 09/02/18 14:22 Lab Results 09/02/18 09/02/18 09/02/18 Range/Units 14:22 14:22 14:22 WBC 5.4 (3.8-10.6) k/uL RBC 3.25 L (3.80-5.40) m/uL Hgb 10.5 L (11.4-16.0) gm/dL Hct 31.1 L (34.0-46.0) % MCV 95.9 (80.0-100.0) fL MCH 32.4 (25.0-35.0) pg MCHC 33.8 (31.0-37.0) g/dL RDW 14.3 (11.5-15.5) % Plt Count 108 L (150-450) k/uL Neutrophils % 70 % Lymphocytes % 17 % Monocytes % 9 % Eosinophils % 1 % Basophils % 1 % Neutrophils # 3.8 (1.3-7.7) k/uL Lymphocytes # 0.9 L (1.0-4.8) k/uL Monocytes # 0.5 (0-1.0) k/uL Eosinophils # 0.1 (0-0.7) k/uL Basophils # 0.0 (0-0.2) k/uL Sodium 139 (137-145) mmol/L Potassium 3.7 (3.5-5.1) mmol/L Chloride 116 H (98-107) mmol/L Carbon Dioxide 19 L (22-30) mmol/L Anion Gap 4 mmol/L BUN 17 (7-17) mg/dL Creatinine 1.83 H (0.52-1.04) mg/dL Est GFR (CKD-EPI)AfAm 36 (>60 ml/min/1.73 sqM) Est GFR (CKD-EPI)NonAf 31 (>60 ml/min/1.73 sqM) Glucose 106 H (74-99) mg/dL Calcium 8.2 L (8.4-10.2) mg/dL Total Bilirubin 1.1 (0.2-1.3) mg/dL AST 59 H (14-36) U/L ALT 42 (9-52) U/L Alkaline Phosphatase 71 (38-126) U/L Total Protein 6.2 L (6.3-8.2) g/dL Albumin 2.3 L (3.5-5.0) g/dL Amylase 43 (30-110) U/L Lipase 254 (23-300) U/L Urine Color Light Red Urine Appearance Cloudy H (Clear) Urine pH 6.0 (5.0-8.0) Ur Specific [place] 1.009 (1.001-1.035) Urine Protein 2+ H (Negative) Urine Glucose (UA) Negative (Negative) Urine Ketones Negative (Negative) Urine Blood Large H (Negative) Urine Nitrite Negative (Negative) Urine Bilirubin Negative (Negative) Urine Urobilinogen <2.0 (<2.0) mg/dL Ur Leukocyte Esterase Negative (Negative) Urine RBC >182 H (0-5) /hpf Urine WBC 18 H (0-5) /hpf Ur Squamous Epith Cells 2 (0-4) /hpf Hyaline Casts 6 H (0-2) /lpf Disposition Clinical Impression: Nausea vomiting and diarrhea, Hematuria Disposition: HOME SELF-CARE Condition: Good Instructions: Acute Nausea and Vomiting (ED) Additional Instructions: Please use medication as discussed. Please follow-up with GI/family doctor in the next 2 days. Please return to emergency room if the symptoms increase or worsen or for any other concerns. Is patient prescribed a controlled substance at d/c from ED?: No Referrals: Kel aMson MD [Primary Care Provider] - 1-2 days Time of Disposition: 16:04
[2018-09-02 16:30] VITALS: BP 134/82; PULSE 74; TEMP 98.2
== END 2018-09-02 16:30 | disposition home or self-care (01) ==
LOC: EC 13:42
DX: R11.2 Nausea with vomiting, unspecified (principal); R19.7 Diarrhea, unspecified; R31.9 Hematuria, unspecified; R10.9 Unspecified abdominal pain; R94.4 Abnormal results of kidney function studies; F41.9 Anxiety disorder, unspecified; F17.200 Nicotine dependence, unspecified, uncomplicated; K74.60 Unspecified cirrhosis of liver; Z86.19 Personal history of other infectious and parasitic diseases; Z98.51 Tubal ligation status; Z79.82 Long term (current) use of aspirin; Z88.8 Allergy status to other drugs, medicaments and biological substances
CPT/HCPCS: 36415; 80053; 82150; 83690; 85025; 81001; 99284; 96374; 96375; 96361; J2270; J2405

== ENCOUNTER 2018-09-13 11:56 | Inpatient (IN) | payer OTHER ==
[2018-09-13] MEDS ORDERED: SODIUM CHLORIDE 0.9% 1,000 ML IV STA (12:45)
--- NOTE | 2018-09-13 13:03 | ED ---
General Adult HPI - General Chief complaint: Urogenital Stated complaint: blood in urine Source: patient, RN notes reviewed, old records reviewed Mode of arrival: ambulatory Limitations: no limitations - History of Present Illness Initial comments: 53-year-old female patient with past medical history including hepatitis C, liver cirrhosis presents to ED with right upper quadrant abdominal pain, nausea and hematuria. Patient denies emesis. Patient states that she has had the right upper quadrant abdominal pain for approximately 3 days. Patient states that she has noticed her urine is darker, she thinks that maybe blood in for approximately 2 days. Patient denies chest pain, congestion, nausea vomiting diarrhea. Patient states that she believes she has had upper respiratory infection which is resolving and has had some waxing and waning shortness of breath for approximately 2 weeks. Patient states that she has had a waxing and waning productive cough for approximately 2 weeks. Systemic: Pt denies fatigue, myalgia, fever/chills, rash. Pt denies weakness, night sweats, weight loss. Neuro: Pt denies headache, visual disturbances, syncope or pre-syncope. HEENT: Pt denies ocular discharge or irritation, otalgia, rhinorrhea, pharyngitis or notable lymphadenopathy. Cardiopulmonary: Pt denies chest pain, heart palpitations, dyspnea on exertion. Abdominal/GI: Pt denies v/d. : Pt denies dysuria, burning w/ urination, frequency/urgency. Denies new onset urinary or bowel incontinence. MSK: Pt denies myalgia, loss of strength or function in extremities. Neuro: Pt denies new onset weakness, paresthesias. - Related Data Home Medications Medication Instructions Recorded Confirmed ALPRAZolam [Xanax] 0.25 mg PO BID PRN 09/13/18 09/13/18 Furosemide [Lasix] 40 mg PO DAILY 09/13/18 09/13/18 Loratadine [Claritin] 10 mg PO DAILY 09/13/18 09/13/18 Metoprolol Tartrate 25 mg PO DAILY 09/13/18 09/13/18 Pantoprazole Sodium [Protonix] 40 mg PO DAILY 09/13/18 09/13/18 Spironolactone 25 mg PO DAILY 09/13/18 09/13/18 traZODone HCL 100 mg PO HS 09/13/18 09/13/18 Allergies Allergy/AdvReac Type Severity Reaction Status Date / Time bupropion [From Wellbutrin] Allergy seizure Verified 09/13/18 12:38 Review of Systems ROS Statement: Those systems with pertinent positive or pertinent negative responses have been documented in the HPI. ROS Other: All systems not noted in ROS Statement are negative. Past Medical History Past Medical History: COPD, Hypertension Additional Past Medical History / Comment(s): lower back pain from previous injury, Hep C, liver cirrhosis History of Any Multi-Drug Resistant Organisms: None Reported Past Surgical History: Tubal Ligation Past Anesthesia/Blood Transfusion Reactions: No Reported Reaction Additional Past Anesthesia/Blood Transfusion Reaction / Comment(s): clausterphobia Past Psychological History: Anxiety, Depression Smoking Status: Current every day smoker Past Alcohol Use History: Occasional Past Drug Use History: None Reported - Past Family History Father History Unknown: Yes Family Medical History: Cancer Additional Family Medical History / Comment(s): unk type Mother History Unknown: Yes Family Medical History: AFIB, Congestive Heart Failure (CHF), Myocardial Infarction ([place]), Seizure Disorder General Exam - General Exam Comments Initial Comments: Constitutional: NAD, AOX3, Pt has pleasant affect. HEENT: NC/AT, trachea midline, neck supple, no lymphadenopathy. Posterior pharynx non erythematous, without exudates. External ears appear normal, without discharge. Mucous membranes moist. Eyes PERRLA, EOM intact. There is no scleral icterus. No pallor noted. Cardiopulmonary: RRR, no murmurs, rubs or gallops, no JVD noted. Lungs CTAB in anterior and posterior downs. No peripheral edema. Abdominal exam: Abdomen soft and mildly-distended. Abdomen mildly tender to palpation in right upper quadrant. Gustafson sign negative. No guarding or rigidity no ecchymoses. Bowel sounds active in LLQ. No hepatosplenomegaly. Neuro: CN II-XII grossly intact. No nuchal rigidity. MSK: Right posterior calf tenderness, L posterior calf non tender homans sign negative bilaterally. Posterior tibialis and radial pulse +2 bilaterally. Sensation intact in upper and lower extremities. Full active ROM in upper and lower extremities, 5/5 strength. Limitations: no limitations Course Vital Signs 09/13/18 09/13/18 09/13/18 12:01 14:56 20:43 Temperature 98 F 98.4 F Pulse Rate 61 65 66 Respiratory 16 18 16 Rate Blood Pressure 162/83 183/85 175/98 O2 Sat by Pulse 99 98 96 Oximetry Medical Decision Making - Medical Decision Making 53-year-old female patient past history of hepatitis C, liver cirrhosis presents to the right upper quadrant pain, nausea, hematuria for 3 days. Physical exam displayed verbal quadrant tenderness to palpation. Moderate right posterior Tenderness. Laboratory investigations revealed a mild anemia at 10.1 and CBC. An elevated creatinine of 1.89, and decreased GFR, mildly decreased calcium, mildly increased AST. Ammonia elevated to 44. Lipase elevated to 322. UA displayed greater than 182 red blood cells. EKG is not concerning for acute ischemia. Chest x-ray did not display any acute process. Venous lower extremity Doppler that displayed DVT. RUQ US displayed cirrhosis, pulmonary hypertension, no cholecystitis. V/Q scan was low probability for pulmonary embolism. CT displayed ascites, cirrhosis. Patient to be admitted for continued evaluation. Case discussed with Dr. Trujillo and Dr. Pond. - Lab Data Result diagrams: 09/13/18 12:31 09/13/18 12:31 Lab Results 09/13/18 09/13/18 09/13/18 Range/Units 12:31 12:31 12:31 WBC 5.8 (3.8-10.6) k/uL RBC 3.19 L (3.80-5.40) m/uL Hgb 10.1 L (11.4-16.0) gm/dL Hct 29.7 L (34.0-46.0) % MCV 92.9 (80.0-100.0) fL MCH 31.5 (25.0-35.0) pg MCHC 33.9 (31.0-37.0) g/dL RDW 13.5 (11.5-15.5) % Plt Count 151 (150-450) k/uL Neutrophils % 55 % Lymphocytes % 32 % Monocytes % 9 % Eosinophils % 2 % Basophils % 1 % Neutrophils # 3.2 (1.3-7.7) k/uL Lymphocytes # 1.9 (1.0-4.8) k/uL Monocytes # 0.5 (0-1.0) k/uL Eosinophils # 0.1 (0-0.7) k/uL Basophils # 0.0 (0-0.2) k/uL Manual Slide Review Performed Poikilocytosis Slight D-Dimer (<0.60) mg/L FEU Sodium 140 (137-145) mmol/L Potassium 3.9 (3.5-5.1) mmol/L Chloride 114 H (98-107) mmol/L Carbon Dioxide 22 (22-30) mmol/L Anion Gap 4 mmol/L BUN 20 H (7-17) mg/dL Creatinine 1.89 H (0.52-1.04) mg/dL Est GFR (CKD-EPI)AfAm 35 (>60 ml/min/1.73 sqM) Est GFR (CKD-EPI)NonAf 30 (>60 ml/min/1.73 sqM) Glucose 93 (74-99) mg/dL Plasma Lactic Acid Luis E 1.2 (0.7-2.0) mmol/L Calcium 7.9 L (8.4-10.2) mg/dL Total Bilirubin 1.1 (0.2-1.3) mg/dL AST 46 H (14-36) U/L ALT 30 (9-52) U/L Alkaline Phosphatase 76 (38-126) U/L Ammonia (<30) umol/L Total Protein 6.2 L (6.3-8.2) g/dL Albumin 2.2 L (3.5-5.0) g/dL Amylase 63 (30-110) U/L Lipase 322 H (23-300) U/L Urine Color Urine Appearance (Clear) Urine pH (5.0-8.0) Ur Specific [place] (1.001-1.035) Urine Protein (Negative) Urine Glucose (UA) (Negative) Urine Ketones (Negative) Urine Blood (Negative) Urine Nitrite (Negative) Urine Bilirubin (Negative) Urine Urobilinogen (<2.0) mg/dL Ur Leukocyte Esterase (Negative) Urine RBC (0-5) /hpf Urine WBC (0-5) /hpf Ur Squamous Epith Cells (0-4) /hpf Urine Bacteria (None) /hpf Hyaline Casts (0-2) /lpf Urine Mucus (None) /hpf 09/13/18 09/13/18 09/13/18 Range/Units 12:31 12:31 12:33 WBC (3.8-10.6) k/uL RBC (3.80-5.40) m/uL Hgb (11.4-16.0) gm/dL Hct (34.0-46.0) % MCV (80.0-100.0) fL MCH (25.0-35.0) pg MCHC (31.0-37.0) g/dL RDW (11.5-15.5) % Plt Count (150-450) k/uL Neutrophils % % Lymphocytes % % Monocytes % % Eosinophils % % Basophils % % Neutrophils # (1.3-7.7) k/uL Lymphocytes # (1.0-4.8) k/uL Monocytes # (0-1.0) k/uL Eosinophils # (0-0.7) k/uL Basophils # (0-0.2) k/uL Manual Slide Review Poikilocytosis D-Dimer 3.19 H (<0.60) mg/L FEU Sodium (137-145) mmol/L Potassium (3.5-5.1) mmol/L Chloride (98-107) mmol/L Carbon Dioxide (22-30) mmol/L Anion Gap mmol/L BUN (7-17) mg/dL Creatinine (0.52-1.04) mg/dL Est GFR (CKD-EPI)AfAm (>60 ml/min/1.73 sqM) Est GFR (CKD-EPI)NonAf (>60 ml/min/1.73 sqM) Glucose (74-99) mg/dL Plasma Lactic Acid Luis E (0.7-2.0) mmol/L Calcium (8.4-10.2) mg/dL Total Bilirubin (0.2-1.3) mg/dL AST (14-36) U/L ALT (9-52) U/L Alkaline Phosphatase (38-126) U/L Ammonia 44 H (<30) umol/L Total Protein (6.3-8.2) g/dL Albumin (3.5-5.0) g/dL Amylase (30-110) U/L Lipase (23-300) U/L Urine Color Light Red Urine Appearance Cloudy H (Clear) Urine pH 6.0 (5.0-8.0) Ur Specific [place] 1.013 (1.001-1.035) Urine Protein 3+ H (Negative) Urine Glucose (UA) Negative (Negative) Urine Ketones Negative (Negative) Urine Blood Large H (Negative) Urine Nitrite Negative (Negative) Urine Bilirubin Negative (Negative) Urine Urobilinogen <2.0 (<2.0) mg/dL Ur Leukocyte Esterase Negative (Negative) Urine RBC >182 H (0-5) /hpf Urine WBC 41 H (0-5) /hpf Ur Squamous Epith Cells 2 (0-4) /hpf Urine Bacteria Rare H (None) /hpf Hyaline Casts 19 H (0-2) /lpf Urine Mucus Rare H (None) /hpf - EKG Data -: EKG Interpreted by Me (and dr trujillo) EKG Comments: Ventricular rate 59, ND interval 154, QRS 86, QT/QTc 464/4+. Sinus bradycardia , otherwise normal EKG. Disposition Clinical Impression: Hematuria Disposition: ADMITTED IP TO THIS HOSP Condition: Good Is patient prescribed a controlled substance at d/c from ED?: No
[2018-09-13 13:25] LABS: Appearance,Urine Cloudy (Clear); Bacteria,Urine Rare /hpf; Bilirubin,Urine Negative (Negative); Blood,Urine Large (Negative); Color,Urine Light Red; Glucose,Urine (UA) Negative (Negative); Hyaline Casts,Urine 19 /lpf (0-2); Ketones,Urine Negative (Negative); Leukocyte Esterase,Urine Negative (Negative); Mucus,Urine Rare /hpf; Nitrite,Urine Negative (Negative); Protein,Urine 3+ (Negative); RBC,Urine >182 /hpf (0-5); Specific Gravity,Urine 1.013 (1.001-1.035); Squamous Epithelial Cell,Urine 2 /hpf (0-4); Urobilinogen,Urine <2.0 mg/dL (<2.0)
[2018-09-13 13:33] LABS: Albumin 2.2 g/dL (3.5-5.0); Calcium 7.9 mg/dL (8.4-10.2); Potassium 3.9 mmol/L (3.5-5.1); Total Bilirubin 1.1 mg/dL (0.2-1.3); Total Protein 6.2 g/dL (6.3-8.2)
[2018-09-13 13:39] LABS: Basophils % (A) 1 %; Eosinophils # (A) 0.1 k/uL (0-0.7); Eosinophils % (A) 2 %; HCT 29.7 % (34.0-46.0); HGB 10.1 gm/dL (11.4-16.0); Lymphocytes # (A) 1.9 k/uL (1.0-4.8); Lymphocytes % (A) 32 %; MCH 31.5 pg (25.0-35.0); MCHC 33.9 g/dL (31.0-37.0); MCV 92.9 fL (80.0-100.0); Mean Platelet Volume 8.3; Monocytes # (A) 0.5 k/uL (0-1.0); Monocytes % (A) 9 %; Neutrophils # (A) 3.2 k/uL (1.3-7.7); Neutrophils % (A) 55 %; Platelet Count 151 k/uL (150-450); Poikilocytosis Slight; RBC 3.19 m/uL (3.80-5.40); RDW 13.5 % (11.5-15.5); WBC 5.8 k/uL (3.8-10.6)
[2018-09-13] MEDS ORDERED: MORPHINE SULFATE 4 MG/ML SYRINGE IV STA (14:00)
--- NOTE | 2018-09-13 14:07 | US ---
EXAMINATION TYPE: US venous doppler duplex LE DATE OF EXAM: 09/13/2018 1:48 PM COMPARISON: NONE CLINICAL HISTORY: Pain. Patient states she had bilateral leg pain when her doctor squeezed them today . SIDE PERFORMED: Bilateral TECHNIQUE: The lower extremity deep venous system is examined utilizing real time linear array sonog radha with graded compression, doppler sonography and color-flow sonography. VESSELS IMAGED: External Iliac Vein (EIV) Common Femoral Vein Deep Femoral Vein Greater Saphenous Vein * Femoral Vein Popliteal Vein Small Saphenous Vein * Proximal Calf Veins (* superficial vessels) Right Leg: Appears negative for DVT Left Leg: Appears negative for DVT Grayscale, color doppler, spectral doppler imaging performed of the deep veins of the bilateral lower extremities. There is normal flow, compressibility, vascular waveforms. IMPRESSION: No ultrasound evidence for acute DVT in the bilateral lower extremities.
--- NOTE | 2018-09-13 14:32 | US ---
EXAMINATION TYPE: US gallbladder DATE OF EXAM: 09/13/2018 COMPARISON: CT & US 2018 CLINICAL HISTORY: Pain. RUQ pain and nausea x 2 months, patient not NPO EXAM MEASUREMENTS: Liver Length: 15.2 cm Gallbladder Wall: 0.3 cm CBD: 0.5 cm Right Kidney: 10.9 x 5.3 x 4.9 cm Technically difficult and limited study due to patient body habitus Pancreas: obscured by overlying midline bowel gas Liver: Nodular and contour, heterogenous throughout. These findings limit evaluation for hepatic mas ses. Gallbladder: contracted Evidence for sonographic Gustafson's sign: yes CBD: visualized portions wnl, limited by overlying bowel gas Right Kidney: wnl Free fluid seen in RUQ IMPRESSION: Hepatic cirrhosis and small volume perihepatic ascites. Gallbladder is contracted and there are no cu rrent sonographic evidence of acute cholecystitis.
--- NOTE | 2018-09-13 14:42 | XR ---
EXAMINATION TYPE: XR chest 2V DATE OF EXAM: 09/13/2018 COMPARISON: Chest x-ray January 16, 2017. HISTORY: Chest and abdominal pain TECHNIQUE: Frontal and lateral views of the chest are obtained. FINDINGS: There is lateral left basilar linear scarring and/or atelectasis on current study. There is no suspicious new focal air space opacity, pleural effusion, or pneumothorax seen. The cardiac silh ouette size is within normal limits. The osseous structures are intact. IMPRESSION: No suspicious acute cardiopulmonary process.
--- NOTE | 2018-09-13 15:35 | CT ---
EXAMINATION TYPE: CT abdomen pelvis wo con DATE OF EXAM: 09/13/2018 HISTORY: hematuria CT DLP: 1058 mGycm. Automated Exposure Control for Dose Reduction was Utilized. TECHNIQUE: CT scan of the abdomen and pelvis is performed without oral or IV contrast. COMPARISON: CT abdomen pelvis April 20, 2018 FINDINGS: Within the limitations of a non-contrast study, the following observations are made. LUNG BASES: No significant abnormality is appreciated. Liver: Lobulated nodular peripheral contour consistent with cirrhosis is present. Contracted gallblad samantha is seen. PANCREAS: No significant abnormality is seen. SPLEEN: Splenomegaly is noted measuring 15.7 cm long axis coronal image 63 similar to prior. ADRENALS: No significant abnormality is seen. KIDNEYS: No renal calculi or hydronephrosis is present bilaterally. No intraluminal calculi are seen in poorly distended bladder. BOWEL: Evaluation bowel is suboptimal secondary to lack of enteric contrast. No suspicious small or l arge bowel dilatation is present. Some scattered colonic diverticula are redemonstrated. GENITAL ORGANS: Anteverted uterus is seen. LYMPH NODES: No greater than 1cm abdominal or pelvic lymph nodes are appreciated. OSSEOUS STRUCTURES: Moderate disc space narrowing with vacuum disc phenomenon lumbosacral junction is present. OTHER: Moderate amount of abdominal and pelvic ascites is increased from prior CT. IMPRESSION: 1. Cirrhosis with evidence of portal hypertension as there is splenomegaly and worsening moderate shadia unt of abdominal and pelvic ascites. 2. No renal calculi or hydronephrosis evident bilaterally. No significant finding seen to account for patient's symptoms of hematuria. Further investigation with CT urogram is warranted if symptoms pers ist.
--- NOTE | 2018-09-13 16:11 | NM ---
EXAMINATION TYPE: NM pul vent and perfuse DATE OF EXAM: 09/13/2018 COMPARISON: 09/13/2018 chest radiograph HISTORY: Elevated d-dimer TECHNIQUE: Utilizing inhalation of 39.3 mCi Tc 99m DTPA aerosol and intravenous injection of 4.97 mC i of Tc 99m MAA, ventilation and perfusion images are acquired post injection in multiple projections . FINDINGS: Linear nonsegmental perfusion defects are seen along the fissures and central bronchi. Posteriorly th ere are matched defects over the lower lungs not well appreciated anteriorly. Central radiotracer clu mping is seen on the ventilation portion examination rendering the ventilation portion suboptimal as there is diminished radiotracer uptake throughout the lungs. IMPRESSION: Low probability for pulmonary embolus. Matched defects are seen within the lower lobes on posterior i mages only. Additionally Central radiotracer clumping limits evaluation on perfusion imaging but sugg ests airway disease.
[2018-09-13] MEDS ORDERED: NALOXONE 0.4 MG/ML 1 ML VIAL IV PRN (18:20)
[2018-09-13] MEDS: MORPHINE SULFATE 2 MG/ML SYRINGE IV PRN (20:37)
[2018-09-13 23:57] VITALS: BMI 39.5
[2018-09-14] MEDS: MORPHINE SULFATE 2 MG/ML SYRINGE IV PRN ×6 (00:38→23:32)
[2018-09-14] MEDS: SODIUM CHLORIDE 0.9% 1,000 ML IV SCH ×2 (08:29→20:28)
[2018-09-14] MEDS ORDERED: ALPRAZolam 0.25 MG TAB PO PRN (08:39)
[2018-09-14] MEDS ORDERED: PANTOPRAZOLE 40 MG TABLET PO SCH (09:00)
--- NOTE | 2018-09-14 09:37 | CONS ---
CONSULTATION REASON FOR CONSULT: Renal failure. HISTORY OF PRESENT ILLNESS: The patient is a 53-year-old female who was admitted to the hospital yesterday with the complaints of having seen blood in the urine. The patient does have a previous history of hepatitis C and chronic liver disease. She states she was at her primary care physician's office and on voiding, noticed that she had blood in her urine. The patient had some vague abdominal pain. She denied any significant nausea, fever, or chills. No chest pains or shortness of breath. There is no previous history of kidney stones. Serum creatinine was noted to be 1.89 mg/dL. Previous creatinine was 1.83 on 09/02/2018 and 1.5 on 05/24/2018. The UA shows 3+ protein, large blood, and WBCs 41. PAST MEDICAL HISTORY: Significant for COPD, hypertension, hepatitis C, chronic liver disease. Also significant for anxiety and depression. PAST SURGICAL HISTORY: Tubal ligation. SOCIAL HISTORY: Patient is a currently daily smoker. MEDICATIONS: Medications at home included Xanax, Lasix, Claritin, metoprolol, Protonix, spironolactone, trazodone. ALLERGIES: INCLUDE WELLBUTRIN, WHICH CAUSED A SEIZURE. REVIEW OF SYSTEMS: As per HPI. Other systems negative. PHYSICAL EXAMINATION: Patient is comfortable, awake, alert, oriented x3. She is not in any acute distress. Blood pressure was 153/89, heart rate 62 per minute. She is afebrile. Examination of the heart S1, S2. Examination of the lungs bilateral breath sounds are heard. Abdomen is soft, nontender. Examination of lower extremities shows trace edema. [employer] exam is grossly intact. LABS: Show from yesterday, sodium 140, potassium 3.9, chloride 114, BUN 20, serum creatinine 1.89, hemoglobin at 10.1 g/dL. UA shows 3+ protein, large blood, WBCs of 41, RBCs more than 182. The patient had a CT scan of the abdomen which showed no calculi in the kidneys. Cirrhosis with portal hypertension and splenomegaly and ascites cecitis was noted. ASSESSMENT: 1. Acute kidney injury most likely prerenal. The patient is not on any nephrotoxic medications. She received a fluid bolus in the ER. I will start her on IV hydration. Her UA does show evidence of proteinuria and hematuria. I will obtain a serological workup in view of underlying history of hepatitis C and UA showing proteinuria we need. We need to rule out underlying GN. A urine culture will also be sent to rule out underlying urinary tract infection which could explain the proteinuria and hematuria. 2. Rule out chronic kidney disease. Previous creatinine was 1.8 on September 02 and 1.5 in April of 2018. We have a creatinine of 0.7 in February of 2018. 3. Chronic liver disease with liver cirrhosis with history of hepatitis C. 4. Portal hypertension secondary to chronic liver disease with splenomegaly and ascites noted on CT scan. 5. Anemia, rule out iron deficiency. PLAN: Start IV hydration. Check baseline serologies. Follow up on urine cultures. Check iron studies and maintain IV hydration and continue to avoid nephrotoxic agents. Repeat labs today as well as in a.m. Thank you for this consultation. We will continue to follow the patient with you during her hospitalization. JULIAN / SHANE: [id number] /
[2018-09-14] MEDS: LORATADINE 10 MG TAB PO SCH (10:33)
[2018-09-14] MEDS: PANTOPRAZOLE 40 MG TABLET PO SCH (10:33)
[2018-09-14] MEDS: METOPROLOL TARTRATE 25 MG TAB PO SCH (10:33)
--- NOTE | 2018-09-14 10:57 | P.HPIM ---
History of Present Illness H&P Date: 09/14/18 Chief Complaint: Hematuria This is a 53-year-old female patient who presented from her primary care provider with complaints of hematuria. She states that for the past 2 days she has had right upper quadrant abdominal pain with nausea and hematuria patient also complaining of increasing shortness of breath and productive cough for the past 2 weeks. Patient does have a significant past medical history for hepatitis C. Patient states she was a heavy drinker up until one month ago, anxiety, liver cirrhosis, depression, COPD, hypertension and nicotine dependence. Chest x-ray completed showing no suspicion for acute cardiopulmonary process. Venous Doppler study completed showing negative for DVT. CT of abdomen and pelvis completed showing cirrhosis with evidence of portal hypertension and there is splenomegaly and worsening moderate amount of abdominal and pelvic ascites. No renal calculi or hydronephrosis evident bilaterally. No significant findings seen to account for patient's symptoms hematuria. Gallbladder ultrasound completed showing hepatic cirrhosis and small volume perihepatic ascites. Gallbladder is tract it in there is no current sonographic evidence of acute cholecystitis. D-dimer elevated at 3.19. VQ scan completed showing low probability for pulmonary embolus. Matched defects are seen within the lower lobes on posterior images only. Additionally central radiotracer clumping limits evaluation of perfusion imaging to suggest airway disease. CT completed showing sinus bradycardia heart rate 59. UA showing large amounts blood. Patient also in acute kidney injury creatinine 1.89 bun 20. Lipase elevated at 322. Ammonia 44. Patient also seeing her ascites has become significantly worse over the past month. Dr. lOson has been consulted for nephrology services. Dr. العلي has been consulted for GI. At this time patient denies chest pain or shortness breath. Patient is complaining of some nausea and abdominal tenderness. Patient denies urinary burning or frequency. Review of Systems Please refer to HPI otherwise unremarkable Past Medical History Past Medical History: COPD, Hypertension Additional Past Medical History / Comment(s): lower back pain from previous injury, Hep C, liver cirrhosis History of Any Multi-Drug Resistant Organisms: None Reported Past Surgical History: Tubal Ligation Past Anesthesia/Blood Transfusion Reactions: No Reported Reaction Additional Past Anesthesia/Blood Transfusion Reaction / Comment(s): clausterphobia Past Psychological History: Anxiety, Depression Smoking Status: Current every day smoker Past Alcohol Use History: Occasional Past Drug Use History: None Reported - Past Family History Father History Unknown: Yes Family Medical History: Cancer Additional Family Medical History / Comment(s): unk type Mother History Unknown: Yes Family Medical History: AFIB, Congestive Heart Failure (CHF), Myocardial Infarction ([place]), Seizure Disorder Medications and Allergies Home Medications Medication Instructions Recorded Confirmed Type ALPRAZolam [Xanax] 0.25 mg PO BID PRN 09/13/18 09/13/18 History Furosemide [Lasix] 40 mg PO DAILY 09/13/18 09/13/18 History Loratadine [Claritin] 10 mg PO DAILY 09/13/18 09/13/18 History Metoprolol Tartrate 25 mg PO DAILY 09/13/18 09/13/18 History Pantoprazole Sodium [Protonix] 40 mg PO DAILY 09/13/18 09/13/18 History Spironolactone 25 mg PO DAILY 09/13/18 09/13/18 History traZODone HCL 100 mg PO HS 09/13/18 09/13/18 History Allergies Allergy/AdvReac Type Severity Reaction Status Date / Time bupropion [From Wellbutrin] Allergy seizure Verified 09/13/18 12:38 Physical Exam Vitals: Vital Signs Temp Pulse Pulse Resp BP BP Pulse Ox 09/14/18 05:05 98.4 F 62 16 153/89 94 L 09/14/18 00:00 18 09/13/18 23:00 97.8 F 65 18 156/89 97 09/13/18 22:38 98.6 F 67 18 137/73 99 09/13/18 22:22 18 09/13/18 20:43 66 16 175/98 96 09/13/18 14:56 98.4 F 65 18 183/85 98 09/13/18 12:01 98 F 61 16 162/83 99 Intake and Output 09/13/18 09/14/18 09/14/18 22:59 06:59 14:59 Other: Voiding Method Toilet Weight 104.54 kg Head normocephalic Neck supple Lungs clear to auscultation bilaterally no wheezing or crackles Heart regular rate and rhythm S1-S2, no rub or gallop Abdomen is tender to palpation. Ascites noted Extremities no edema Neuro alert and orientated to 3 Results CBC & Chem 7: 09/13/18 12:31 09/13/18 12:31 Labs: Abnormal Lab Results - Last 24 Hours (Table) 09/13/18 09/13/18 09/13/18 Range/Units 12:31 12:31 12:31 RBC 3.19 L (3.80-5.40) m/uL Hgb 10.1 L (11.4-16.0) gm/dL Hct 29.7 L (34.0-46.0) % D-Dimer 3.19 H (<0.60) mg/L FEU Chloride 114 H (98-107) mmol/L BUN 20 H (7-17) mg/dL Creatinine 1.89 H (0.52-1.04) mg/dL Calcium 7.9 L (8.4-10.2) mg/dL AST 46 H (14-36) U/L Ammonia (<30) umol/L Total Protein 6.2 L (6.3-8.2) g/dL Albumin 2.2 L (3.5-5.0) g/dL Lipase 322 H (23-300) U/L Urine Appearance (Clear) Urine Protein (Negative) Urine Blood (Negative) Urine RBC (0-5) /hpf Urine WBC (0-5) /hpf Urine Bacteria (None) /hpf Hyaline Casts (0-2) /lpf Urine Mucus (None) /hpf 18 09/13/18 Range/Units 12:31 12:33 RBC (3.80-5.40) m/uL Hgb (11.4-16.0) gm/dL Hct (34.0-46.0) % D-Dimer (<0.60) mg/L FEU Chloride (98-107) mmol/L BUN (7-17) mg/dL Creatinine (0.52-1.04) mg/dL Calcium (8.4-10.2) mg/dL AST (14-36) U/L Ammonia 44 H (<30) umol/L Total Protein (6.3-8.2) g/dL Albumin (3.5-5.0) g/dL Lipase (23-300) U/L Urine Appearance Cloudy H (Clear) Urine Protein 3+ H (Negative) Urine Blood Large H (Negative) Urine RBC >182 H (0-5) /hpf Urine WBC 41 H (0-5) /hpf Urine Bacteria Rare H (None) /hpf Hyaline Casts 19 H (0-2) /lpf Urine Mucus Rare H (None) /hpf Microbiology - Last 24 Hours (Table) 09/13/18 12:33 Urine Culture - Preliminary Urine,Voided Thrombosis Risk Factor Assmnt - Choose All That Apply Each Factor Represents 1 point: Age 41-60 years Other Risk Factors: No Other congenital or acquired thrombophilia - If yes, enter type in comment: No Thrombosis Risk Factor Assessment Total Risk Factor Score: 1 Thrombosis Risk Factor Assessment Level: Low Risk Assessment and Plan Assessment: 1. Hematuria with anemia. Hemoglobin 10.1. UA positive for hematuria. Gallbladder ultrasound completed showing hepatic cirrhosis and small volume parahepatic ascites. Gallbladder is contracted and there is no current sonographic evidence of acute cholecystitis. Dr. Olson has been consulted. Per nephrology urine culture and Iron studies ordered. IV hydration to continue. 2. Hepatic cirrhosis. CT of abdomen and pelvis completed showing cirrhosis with evidence of portal hypertension as there is splenomegaly and worsening moderate amount of abdominal and pelvic ascites. No renal calculi or hydronephrosis evident bilaterally. No significant findings seen to account for patient's symptoms of hematuria. Further investigation with CT urogram is warranted of systems persist. GI consult has been placed 3. Acute kidney injury. Creatinine 1.89 and bun 20. Nephrology services have been consulted Aldactone and Lasix currently on hold 4. History of EtOH. Patient reports heavy alcohol consumption up until one month prior. Patient states she quit one month ago 5. Hepatitis C. GI consult placed 6. Elevated ammonia level. Ammonia 44. We'll continue monitor closely 7. Elevated lipase. Lipase level 322. will continue monitor closely. GI service is consulted 8. History of nicotine dependence. Patient educated greater than 3 minutes smoking cessation. Patient claims nicotine patch at this time 9. History of COPD. No exacerbation at this time 10. History of essential hypertension. Home meds resumed. Lasix and Aldactone currently on hold due to acute kidney injury 11. History of anxiety and depression DVT prophylaxis SCDs awaiting GI consult. GI prophylaxis Protonix Time with Patient: Greater than 30 (Greater than 60% of the total time spent in counseling and coordination of care. I performed an examination of the patient and discussed their management with the Nurse Practitioner. I have reviewed the Nurse Practitioner's notes and agree with the documented findings and plan of care)
--- NOTE | 2018-09-14 12:18 | P.CONS ---
History of Present Illness - Reason for Consult Consult date: 09/14/18 abdominal pain Requesting physician: Kel Mason - Chief Complaint hematuria - History of Present Illness 53-year-old female with a history of alcohol liver disease cirrhosis, portal hypertension, ascites, chronic hepatitis C with incomplete outpatient treatment , COPD and hypertension. Patient presents reports of hematuria and generalized abdominal discomfort and distention. Additionally she is just feeling more weak and fatigued Denies fever chills hematemesis hematochezia or melena. Last alcoholic drink was a month ago. Patient was started on her bony earlier this year regards to her chronic hepatitis C however she did not complete treatment secondary to active alcoholism. White count 5.8. Hemoglobin 10.1. MCV 92. Platelet 151. BUN 20. Creatinine 1.8. Total bilirubin 1.1. AST 46. ALT 30. AP 76. Ammonia 44. Lipase 322. Amylase 63. Albumin 2.2. BUN 23 creatinine 1.8. AFP in April was 7.5. No history of paracentesis EGD or colonoscopy. Previous hemoglobin over the last 6-12 months 11-13. Gallbladder ultrasound nodular contour liver. Perihepatic ascites. No evidence of acute cholecystitis. CBD 0.[address] abdomen and pelvis lobulated nodular liver consistent with cirrhosis, portal hypertension with moderate abdominal pelvic ascites. No gallstones. Splenomegaly 15.7 cm. Review of Systems Constitutional: Denies fever, chills, sweats, weight gain, or loss. HEENT: Negative for migraines, blurred vision or loss, earaches, drainage, tinnitus, oral mucosal lesions, dysphagia, or odynophagia. CARDIAC: Negative for chest pain, arrhythmias, or palpitation. RESPIRATORY: Negative for shortness of breath, hemoptysis, cough, or sputum production. GI: See HPI for pertinent findings. : Negative for hematuria, urgency, frequency, polyuria, or dysuria. GYNc: Negative vaginal discharge. MUSCULOSKELETAL: Negative for muscle aches, swelling, arthritis, and arthralgias. NEUROLOGIC: Negative for stroke or TIA. ENDOCRINE: Negative for thyroid problems. SKIN: Negative for rash or itching. PSYCHIATRIC: Negative history for depression and anxiety Past Medical History Past Medical History: COPD, Hypertension Additional Past Medical History / Comment(s): lower back pain from previous injury, Hep C, liver cirrhosis History of Any Multi-Drug Resistant Organisms: None Reported Past Surgical History: Tubal Ligation Past Anesthesia/Blood Transfusion Reactions: No Reported Reaction Additional Past Anesthesia/Blood Transfusion Reaction / Comm: clausterphobia Past Psychological History: Anxiety, Depression Smoking Status: Current every day smoker Past Alcohol Use History: Occasional Past Drug Use History: None Reported - Past Family History Father History Unknown: Yes Family Medical History: Cancer Additional Family Medical History / Comment(s): unk type Mother History Unknown: Yes Family Medical History: AFIB, Congestive Heart Failure (CHF), Myocardial Infarction ([place]), Seizure Disorder Medications and Allergies Home Medications Medication Instructions Recorded Confirmed Type ALPRAZolam [Xanax] 0.25 mg PO BID PRN 09/13/18 09/13/18 History Furosemide [Lasix] 40 mg PO DAILY 09/13/18 09/13/18 History Loratadine [Claritin] 10 mg PO DAILY 09/13/18 09/13/18 History Metoprolol Tartrate 25 mg PO DAILY 09/13/18 09/13/18 History Pantoprazole Sodium [Protonix] 40 mg PO DAILY 09/13/18 09/13/18 History Spironolactone 25 mg PO DAILY 09/13/18 09/13/18 History traZODone HCL 100 mg PO HS 09/13/18 09/13/18 History Allergies Allergy/AdvReac Type Severity Reaction Status Date / Time bupropion [From Wellbutrin] Allergy seizure Verified 09/13/18 12:38 Physical Exam Vitals: Vital Signs Temp Pulse Pulse Resp BP BP Pulse Ox 09/14/18 05:05 98.4 F 62 16 153/89 94 L 09/14/18 00:00 18 09/13/18 23:00 97.8 F 65 18 156/89 97 09/13/18 22:38 98.6 F 67 18 137/73 99 09/13/18 22:22 18 09/13/18 20:43 66 16 175/98 96 09/13/18 14:56 98.4 F 65 18 183/85 98 Intake and Output 09/13/18 09/14/18 09/14/18 22:59 06:59 14:59 Other: Voiding Method Toilet Weight 104.54 kg General appearance: The patient is alert, oriented, in no acute distress. HET: Head is normocephalic and atraumatic. Pupils are equal and reactive. Oropharynx is clear without lesions. Neck: Supple without lymphadenopathy. Trachea midline. Heart: S1 S2. Regular rate and rhythm. Lungs: No crackles or wheezes are heard. Abdomen: Soft, minimally tender distended with mild to moderate ascites with bowel sounds. No peritoneal signs. No palpable organomegaly or masses. Extremities: Normal skin color and turgor. No cyanosis, rash, ulceration, clubbing, or edema. Radial and pedal pulses are 2/4 bilaterally. Neurological: No focal deficits. Strength and sensation are grossly intact. Results CBC & Chem 7: 09/15/18 07:00 09/15/18 07:00 Labs: Abnormal Lab Results - Last 24 Hours (Table) 09/13/18 09/13/18 09/13/18 Range/Units 12:31 12:31 12:31 RBC 3.19 L (3.80-5.40) m/uL Hgb 10.1 L (11.4-16.0) gm/dL Hct 29.7 L (34.0-46.0) % D-Dimer 3.19 H (<0.60) mg/L FEU Chloride 114 H (98-107) mmol/L BUN 20 H (7-17) mg/dL Creatinine 1.89 H (0.52-1.04) mg/dL Calcium 7.9 L (8.4-10.2) mg/dL AST 46 H (14-36) U/L Ammonia (<30) umol/L Total Protein 6.2 L (6.3-8.2) g/dL Albumin 2.2 L (3.5-5.0) g/dL Lipase 322 H (23-300) U/L Urine Appearance (Clear) Urine Protein (Negative) Urine Blood (Negative) Urine RBC (0-5) /hpf Urine WBC (0-5) /hpf Urine Bacteria (None) /hpf Hyaline Casts (0-2) /lpf Urine Mucus (None) /hpf 09/13/18 09/13/18 Range/Units 12:31 12:33 RBC (3.80-5.40) m/uL Hgb (11.4-16.0) gm/dL Hct (34.0-46.0) % D-Dimer (<0.60) mg/L FEU Chloride (98-107) mmol/L BUN (7-17) mg/dL Creatinine (0.52-1.04) mg/dL Calcium (8.4-10.2) mg/dL AST (14-36) U/L Ammonia 44 H (<30) umol/L Total Protein (6.3-8.2) g/dL Albumin (3.5-5.0) g/dL Lipase (23-300) U/L Urine Appearance Cloudy H (Clear) Urine Protein 3+ H (Negative) Urine Blood Large H (Negative) Urine RBC >182 H (0-5) /hpf Urine WBC 41 H (0-5) /hpf Urine Bacteria Rare H (None) /hpf Hyaline Casts 19 H (0-2) /lpf Urine Mucus Rare H (None) /hpf Microbiology - Last 24 Hours (Table) 09/13/18 12:33 Urine Culture - Preliminary Urine,Voided CT scan - abdomen: report reviewed (Dr. العلي) US - abdomen: report reviewed (Dr. العلي) Assessment and Plan (1) Abdominal pain Narrative/Plan: Generalized diffuse mild abdominal discomfort bloatedness with ascites Current Visit: No Status: Acute Code(s): R10.9 - UNSPECIFIED ABDOMINAL PAIN SNOMED Code(s): 68507518 (2) Alcoholic liver disease Current Visit: No Status: Acute Code(s): K70.9 - ALCOHOLIC LIVER DISEASE, UNSPECIFIED SNOMED Code(s): 64344310 (3) Cirrhosis Current Visit: No Status: Acute Code(s): K74.60 - UNSPECIFIED CIRRHOSIS OF LIVER SNOMED Code(s): 47305822 (4) Chronic hepatitis C Current Visit: Yes Status: Acute Code(s): B18.2 - CHRONIC VIRAL HEPATITIS C SNOMED Code(s): 243510769 (5) Hematuria Current Visit: Yes Status: Acute Code(s): R31.9 - HEMATURIA, UNSPECIFIED SNOMED Code(s): 98233623 (6) Acute kidney injury Current Visit: Yes Status: Acute Code(s): N17.9 - ACUTE KIDNEY FAILURE, UNSPECIFIED SNOMED Code(s): 69503686 (7) History of ETOH abuse Current Visit: Yes Status: Acute Code(s): Z87.898 - PERSONAL HISTORY OF OTHER SPECIFIED CONDITIONS SNOMED Code(s): 794961289 (8) Hyperammonemia Narrative/Plan: Without encephalopathy Current Visit: Yes Status: Acute Code(s): E72.20 - DISORDER OF UREA CYCLE METABOLISM, UNSPECIFIED SNOMED Code(s): 7924861 (9) Ascites Current Visit: Yes Status: Acute Code(s): R18.8 - OTHER ASCITES SNOMED Code(s): 027115536 Plan: 1. Iron indices. Outpatient EGD colonoscopy recommended. Presently no clinical evidence of active GI bleeding. 2. Hepatitis C RNA evaluation. Outpatient hepatitis C treatment will be pursued as long as patient continues to abstain from alcohol. 3. Ultrasound paracentesis/cytology. 4. Nephrology consult appreciated. Diuretics on hold we'll defer to nephrology service for recommendations. 5. Low sodium diet. 6. Lactulose 20 g daily with daily monitoring of ammonia level. Thank you for this kind referral and the opportunity to participate in the care of your patient. This consultation was discussed with Dr. العلي. The impression and plan of care have been directed as dictated.
[2018-09-14 12:53] LABS: INR 1.3 (<1.2); Prothrombin Time 13.4 sec (9.0-12.0)
[2018-09-14 18:16] LABS: DNA Double-Stranded NEGATIVE (NEGATIVE)
[2018-09-14 18:56] LABS: Iron Saturation 43.56 (12.00-45.00)
[2018-09-14] MEDS: traZODone HCL 100 MG TAB PO SCH ×2 (20:29)
[2018-09-14 21:13] LABS: Hepatitis B Surface AB- Quant 3.5 mIU/mL; Hepatitis C IgG Antibody Reactive (Non-Reactive)
[2018-09-15] MEDS: MORPHINE SULFATE 2 MG/ML SYRINGE IV PRN ×5 (03:21→19:26)
[2018-09-15] MEDS: PANTOPRAZOLE 40 MG TABLET PO SCH (07:28)
[2018-09-15] MEDS: LORATADINE 10 MG TAB PO SCH (07:28)
[2018-09-15] MEDS: METOPROLOL TARTRATE 25 MG TAB PO SCH (07:28)
[2018-09-15 07:39] LABS: Albumin 1.8 g/dL (3.5-5.0); Calcium 7.4 mg/dL (8.4-10.2); Potassium 3.7 mmol/L (3.5-5.1); Total Protein 5.1 g/dL (6.3-8.2)
[2018-09-15 07:44] LABS: Basophils % (A) 1 %; Eosinophils # (A) 0.2 k/uL (0-0.7); Eosinophils % (A) 3 %; HCT 25.2 % (34.0-46.0); Hypochromasia Slight; Lymphocytes # (A) 1.5 k/uL (1.0-4.8); Lymphocytes % (A) 33 %; MCH 31.7 pg (25.0-35.0); MCHC 33.8 g/dL (31.0-37.0); MCV 93.6 fL (80.0-100.0); Mean Platelet Volume 7.5; Monocytes # (A) 0.4 k/uL (0-1.0); Monocytes % (A) 9 %; Neutrophils # (A) 2.3 k/uL (1.3-7.7); Neutrophils % (A) 50 %; Poikilocytosis Slight; RBC 2.69 m/uL (3.80-5.40); RDW 13.8 % (11.5-15.5); WBC 4.6 k/uL (3.8-10.6)
[2018-09-15 07:47] LABS: HGB 8.5 gm/dL (11.4-16.0)
[2018-09-15 08:09] LABS: Platelet Count 98 k/uL (150-450)
[2018-09-15] MEDS: SODIUM CHLORIDE 0.9% 1,000 ML IV SCH ×2 (08:59→20:38)
--- NOTE | 2018-09-15 10:32 | P.PN ---
Subjective Progress Note Date: 09/15/18 This is a 53-year-old female patient who presented from her primary care provider with complaints of hematuria. She states that for the past 2 days she has had right upper quadrant abdominal pain with nausea and hematuria patient also complaining of increasing shortness of breath and productive cough for the past 2 weeks. Patient does have a significant past medical history for hepatitis C. Patient states she was a heavy drinker up until one month ago, anxiety, liver cirrhosis, depression, COPD, hypertension and nicotine dependence. Chest x-ray completed showing no suspicion for acute cardiopulmonary process. Venous Doppler study completed showing negative for DVT. CT of abdomen and pelvis completed showing cirrhosis with evidence of portal hypertension and there is splenomegaly and worsening moderate amount of abdominal and pelvic ascites. No renal calculi or hydronephrosis evident bilaterally. No significant findings seen to account for patient's symptoms hematuria. Gallbladder ultrasound completed showing hepatic cirrhosis and small volume perihepatic ascites. Gallbladder is tract it in there is no current sonographic evidence of acute cholecystitis. D-dimer elevated at 3.19. VQ scan completed showing low probability for pulmonary embolus. Matched defects are seen within the lower lobes on posterior images only. Additionally central radiotracer clumping limits evaluation of perfusion imaging to suggest airway disease. CT completed showing sinus bradycardia heart rate 59. UA showing large amounts blood. Patient also in acute kidney injury creatinine 1.89 bun 20. Lipase elevated at 322. Ammonia 44. Patient also seeing her ascites has become significantly worse over the past month. Dr. Olson has been consulted for nephrology services. Dr. العلي has been consulted for GI. At this time patient denies chest pain or shortness breath. Patient is complaining of some nausea and abdominal tenderness. Patient denies urinary burning or frequency. On 09/15/2018 patient is currently resting in bed. Discussed case with GI services. Planning for paracentesis today at noon. At this time patient is still complaining of some abdominal discomfort with nausea. Patient denies chest pain or shortness breath. Patient denies any urinary burning or frequency. Patient is still having some hematuria. Hemoglobin dropped to 8.5. Objective - Vital Signs Vital signs: Vital Signs Temp 98.1 F 09/15/18 05:00 Pulse 63 09/15/18 05:00 Resp 16 09/15/18 05:00 BP 119/74 09/15/18 05:00 Pulse Ox 96 09/15/18 05:00 Intake & Output 09/14/18 09/15/18 09/15/18 18:59 06:59 18:59 Intake Total 1240 Balance 1240 Intake: Intake, IV Titration 650 Amount Sodium Chloride 0.9% 1, 650 000 ml @ 75 mls/hr IV . [id number] [facility] Rx#:[id number] Oral 590 Other: Voiding Method Toilet Toilet Toilet # Voids 2 # Bowel Movements 0 1 - Exam Head normocephalic Neck supple Lungs clear to auscultation bilaterally no wheezing or crackles Heart regular rate and rhythm S1-S2, no rub or gallop Abdomen is tender to palpation. Ascites noted Extremities no edema Neuro alert and orientated to 3 - Labs CBC & Chem 7: 09/15/18 07:00 09/15/18 07:00 Labs: Abnormal Lab Results - Last 24 Hours (Table) 09/13/18 09/14/18 09/14/18 Range/Units 12:31 12:32 12:32 RBC (3.80-5.40) m/uL Hgb (11.4-16.0) gm/dL Hct (34.0-46.0) % Plt Count (150-450) k/uL PT 13.4 H (9.0-12.0) sec INR 1.3 H (<1.2) Chloride (98-107) mmol/L BUN (7-17) mg/dL Creatinine (0.52-1.04) mg/dL Calcium (8.4-10.2) mg/dL TIBC 202 L (228-460) ug/dL Ferritin 330.4 H (10.0-291.0) ng/mL AST (14-36) U/L Total Protein (6.3-8.2) g/dL Albumin (3.5-5.0) g/dL Hep C IgG Ab Reactive H (Non-Reactive) 09/15/18 09/15/18 Range/Units 07:00 07:00 RBC 2.69 L (3.80-5.40) m/uL Hgb 8.5 L D (11.4-16.0) gm/dL Hct 25.2 L (34.0-46.0) % Plt Count 98 L (150-450) k/uL PT (9.0-12.0) sec INR (<1.2) Chloride 114 H (98-107) mmol/L BUN 20 H (7-17) mg/dL Creatinine 1.84 H (0.52-1.04) mg/dL Calcium 7.4 L (8.4-10.2) mg/dL TIBC (228-460) ug/dL Ferritin (10.0-291.0) ng/mL AST 41 H (14-36) U/L Total Protein 5.1 L (6.3-8.2) g/dL Albumin 1.8 L (3.5-5.0) g/dL Hep C IgG Ab (Non-Reactive) Microbiology - Last 24 Hours (Table) 09/14/18 18:00 Stool Culture - Preliminary Stool 09/13/18 12:33 Urine Culture - Final Urine,Voided Assessment and Plan Assessment: 1. Hematuria with anemia. Hemoglobin 10.1. UA positive for hematuria. Gallbladder ultrasound completed showing hepatic cirrhosis and small volume parahepatic ascites. Gallbladder is contracted and there is no current sonographic evidence of acute cholecystitis. Dr. Olson has been consulted. Per nephrology urine culture and Iron studies ordered. IV hydration to continue. 2. Hepatic cirrhosis. CT of abdomen and pelvis completed showing cirrhosis with evidence of portal hypertension as there is splenomegaly and worsening moderate amount of abdominal and pelvic ascites. No renal calculi or hydronephrosis evident bilaterally. No significant findings seen to account for patient's symptoms of hematuria. Further investigation with CT urogram is warranted of systems persist. Per GI consult patient to undergo paracentesis today. 3. Acute kidney injury. Creatinine 1.89 and bun 20. Nephrology services have been consulted Aldactone and Lasix currently on hold 4. History of EtOH. Patient reports heavy alcohol consumption up until one month prior. Patient states she quit one month ago 5. Hepatitis C. per GI services hepatitis see treatment outpatient will be pursued as long as patient continues to abstain from alcohol. 6. Elevated ammonia level. Ammonia 44. We'll continue monitor closely. Lactulose daily has been added per GI recommendation 7. Elevated lipase. Lipase level 322. will continue monitor closely. GI service is consulted 8. History of nicotine dependence. Patient educated greater than 3 minutes smoking cessation. Patient claims nicotine patch at this time 9. History of COPD. No exacerbation at this time 10. History of essential hypertension. Home meds resumed. Lasix and Aldactone currently on hold due to acute kidney injury 11. History of anxiety and depression DVT prophylaxis SCDs awaiting GI consult. GI prophylaxis Protonix I performed an examination of the patient and discussed their management with the Nurse Practitioner. I have reviewed the Nurse Practitioner's notes and agree with the documented findings and plan of care
--- NOTE | 2018-09-15 10:38 | P.PN ---
Subjective Progress Note Date: 09/15/18 Principal diagnosis: Abdominal pain Feels better today. Diagnostic therapeutic paracentesis scheduled for this afternoon. Hemoglobin 8.5. White count 4.6. platelet 98,000. Creatinine 1.8. LFTs stable. Ammonia pending. Objective - Vital Signs Vital signs: Vital Signs Temp 98.1 F 09/15/18 05:00 Pulse 63 09/15/18 05:00 Resp 16 09/15/18 05:00 BP 119/74 09/15/18 05:00 Pulse Ox 96 09/15/18 05:00 Intake & Output 09/14/18 09/15/18 09/15/18 18:59 06:59 18:59 Intake Total 1240 Balance 1240 Intake: Intake, IV Titration 650 Amount Sodium Chloride 0.9% 1, 650 000 ml @ 75 mls/hr IV . [id number] [facility] Rx#:[id number] Oral 590 Other: Voiding Method Toilet Toilet Toilet # Voids 2 # Bowel Movements 0 1 - Exam General appearance: The patient is alert, oriented, in no acute distress. HET: Head is normocephalic and atraumatic. Pupils are equal and reactive. Oropharynx is clear without lesions. Neck: Supple without lymphadenopathy. Trachea midline. Heart: S1 S2. Regular rate and rhythm. Lungs: No crackles or wheezes are heard. Abdomen: Soft, mildly tender across mid abdomen mildly bloated with mild to moderate ascites with bowel sounds. No peritoneal signs. No palpable organomegaly or masses. Extremities: Normal skin color and turgor. No cyanosis, rash, ulceration, clubbing, or edema. Radial and pedal pulses are 2/4 bilaterally. Neurological: No focal deficits. Strength and sensation are grossly intact. - Labs CBC & Chem 7: 09/15/18 07:00 09/15/18 07:00 Labs: Abnormal Lab Results - Last 24 Hours (Table) 09/13/18 09/14/18 09/14/18 Range/Units 12:31 12:32 12:32 RBC (3.80-5.40) m/uL Hgb (11.4-16.0) gm/dL Hct (34.0-46.0) % Plt Count (150-450) k/uL PT 13.4 H (9.0-12.0) sec INR 1.3 H (<1.2) Chloride (98-107) mmol/L BUN (7-17) mg/dL Creatinine (0.52-1.04) mg/dL Calcium (8.4-10.2) mg/dL TIBC 202 L (228-460) ug/dL Ferritin 330.4 H (10.0-291.0) ng/mL AST (14-36) U/L Total Protein (6.3-8.2) g/dL Albumin (3.5-5.0) g/dL Hep C IgG Ab Reactive H (Non-Reactive) 09/15/18 09/15/18 Range/Units 07:00 07:00 RBC 2.69 L (3.80-5.40) m/uL Hgb 8.5 L D (11.4-16.0) gm/dL Hct 25.2 L (34.0-46.0) % Plt Count 98 L (150-450) k/uL PT (9.0-12.0) sec INR (<1.2) Chloride 114 H (98-107) mmol/L BUN 20 H (7-17) mg/dL Creatinine 1.84 H (0.52-1.04) mg/dL Calcium 7.4 L (8.4-10.2) mg/dL TIBC (228-460) ug/dL Ferritin (10.0-291.0) ng/mL AST 41 H (14-36) U/L Total Protein 5.1 L (6.3-8.2) g/dL Albumin 1.8 L (3.5-5.0) g/dL Hep C IgG Ab (Non-Reactive) Microbiology - Last 24 Hours (Table) 09/14/18 18:00 Stool Culture - Preliminary Stool 09/13/18 12:33 Urine Culture - Final Urine,Voided Assessment and Plan (1) Abdominal pain Current Visit: No Status: Acute Code(s): R10.9 - UNSPECIFIED ABDOMINAL PAIN SNOMED Code(s): 87501160 (2) Alcoholic liver disease Current Visit: No Status: Acute Code(s): K70.9 - ALCOHOLIC LIVER DISEASE, UNSPECIFIED SNOMED Code(s): 64197280 (3) Cirrhosis Current Visit: No Status: Acute Code(s): K74.60 - UNSPECIFIED CIRRHOSIS OF LIVER SNOMED Code(s): 29706339 (4) Chronic hepatitis C Current Visit: Yes Status: Acute Code(s): B18.2 - CHRONIC VIRAL HEPATITIS C SNOMED Code(s): 987908491 (5) Hematuria Current Visit: Yes Status: Acute Code(s): R31.9 - HEMATURIA, UNSPECIFIED SNOMED Code(s): 41247045 (6) Acute kidney injury Current Visit: Yes Status: Acute Code(s): N17.9 - ACUTE KIDNEY FAILURE, UNSPECIFIED SNOMED Code(s): 78772877 (7) History of ETOH abuse Current Visit: Yes Status: Acute Code(s): Z87.898 - PERSONAL HISTORY OF OTHER SPECIFIED CONDITIONS SNOMED Code(s): 038312962 (8) Hyperammonemia Narrative/Plan: Without encephalopathy Current Visit: Yes Status: Acute Code(s): E72.20 - DISORDER OF UREA CYCLE METABOLISM, UNSPECIFIED SNOMED Code(s): 8131529 (9) Ascites Current Visit: Yes Status: Acute Code(s): R18.8 - OTHER ASCITES SNOMED Code(s): 953301824 Plan: 1. Paracentesis. Diuretics on hold per nephrology. Lactulose 20 g daily. Return to office in 2 weeks for reevaluation. Assessment and plan a care discussed with Dr. العلي
[2018-09-15] MEDS: LACTULOSE 20 GM/30 ML CUP PO SCH (13:46)
[2018-09-15 14:16] LABS: Hepatits C Virus RNA DETECTED (Not detected); LOG HCV IU/mL 5.35 (<1.08)
[2018-09-15 14:56] LABS: C-ANCA <1:20 Titer (<1:20); P-ANCA <1:20 Titer (<1:20)
--- NOTE | 2018-09-15 15:03 | US ---
Therapeutic paracentesis. DATE OF EXAM: 09/15/2018 CLINICAL HISTORY: Ascites The procedure was discussed with the patient. The risks, complications, benefits, and alternatives we re discussed and any questions were answered. Informed consent was obtained. The patient was placed s upine on the ultrasound table and prepped and draped in the usual sterile fashion. All elements of maximal barrier technique were utilized. Under ultrasound guidance, access into the left lower quadrant was obtained, via the paracentesis catheter system and direct ultrasound guidance . Approximately 2.82 liters of straw-colored fluid was removed. The patient was stable throughout the p rocedure and remained stable upon discharge from Department of Radiology. IMPRESSION: Successful therapeutic paracentesis under ultrasound guidance.
[2018-09-15 15:53] LABS: Appearance,BF Hazy; Color,BF Yellow
[2018-09-15 16:08] LABS: Nucleated Cells, Body Fluid 191 /uL; RBC, Body Fluid 101 /uL
[2018-09-15 16:09] LABS: Mononuclear WBC,Body Fluid 81 %; Polynuclear WBC,Body Fluid 19 %; Total Cells Counted,Body Fluid 100
--- NOTE | 2018-09-15 17:07 | PN ---
PROGRESS NOTE Patient is seen for followup for acute kidney injury. The patient is scheduled for today. She has had good urine output. Serum creatinine is staying at about 1.8 mg/dL. The patient is maintained on IV fluids. She denies any other significant complaints. PHYSICAL EXAMINATION: On examination today, blood pressure was 141/75, heart rate 57 per minute. Patient is afebrile. Examination of the heart S1, S2. Examination of the lungs bilateral breath sounds are heard. Abdomen is soft, distended with ascites, nontender. Examination of lower extremity shows no evidence of edema. FINANCIAL ADVOCATE exam is grossly intact. LAB: Show sodium 142, potassium 3.7, chloride 114, BUN of 20, serum creatinine 1.84. UA shows 3+ protein and WBCs 41. ASSESSMENT: 1. Acute kidney injury, currently nonoliguric, stable. GN workup is pending. 2. Rule out chronic kidney disease. Previous creatinine 1.8 on September 02 and 1.5 in April of 2018, and a creatinine of 0.7 in February of 2018. 3. Chronic liver disease with liver cirrhosis and history of hepatitis C. 4. Portal hypertension associated with chronic liver disease and splenomegaly. 5. Anemia with no evidence of iron deficiency. PLAN: Continue with IV fluids and repeat labs in a.m. MMODL / IJN: [id number] /
[2018-09-15] MEDS: traZODone HCL 100 MG TAB PO SCH (20:39)
[2018-09-16] MEDS: MORPHINE SULFATE 2 MG/ML SYRINGE IV PRN ×3 (03:54→13:03)
[2018-09-16 07:50] LABS: Albumin 1.8 g/dL (3.5-5.0); Calcium 7.5 mg/dL (8.4-10.2); Potassium 3.9 mmol/L (3.5-5.1); Total Bilirubin 0.8 mg/dL (0.2-1.3); Total Protein 5.1 g/dL (6.3-8.2)
[2018-09-16 07:54] LABS: Basophils % (A) 1 %; Eosinophils # (A) 0.1 k/uL (0-0.7); Eosinophils % (A) 3 %; HCT 25.6 % (34.0-46.0); HGB 8.6 gm/dL (11.4-16.0); Hypochromasia Slight; Lymphocytes # (A) 1.6 k/uL (1.0-4.8); Lymphocytes % (A) 35 %; MCH 31.4 pg (25.0-35.0); MCHC 33.4 g/dL (31.0-37.0); MCV 94.1 fL (80.0-100.0); Mean Platelet Volume 8.6; Monocytes # (A) 0.5 k/uL (0-1.0); Monocytes % (A) 11 %; Neutrophils # (A) 2.1 k/uL (1.3-7.7); Neutrophils % (A) 47 %; Poikilocytosis Slight; RBC 2.72 m/uL (3.80-5.40); RDW 13.7 % (11.5-15.5); WBC 4.4 k/uL (3.8-10.6)
[2018-09-16 07:55] LABS: Platelet Count 99 k/uL (150-450)
[2018-09-16] MEDS: PANTOPRAZOLE 40 MG TABLET PO SCH (08:42)
[2018-09-16] MEDS: METOPROLOL TARTRATE 25 MG TAB PO SCH (08:42)
[2018-09-16] MEDS: LORATADINE 10 MG TAB PO SCH (08:42)
[2018-09-16] MEDS: LACTULOSE 20 GM/30 ML CUP PO SCH (08:42)
[2018-09-16] MEDS ORDERED: DARBEPOETIN ALFA 40 MCG/0.4 ML SYRINGE SQ SCH (10:00)
--- NOTE | 2018-09-16 10:29 | PN ---
PROGRESS NOTE The patient is seen for followup for acute kidney injury. Currently, patient is maintained on IV fluids. She did have paracentesis done yesterday, with about 2.8 L of fluid was removed. The patient states she has had good urine output. I do not see any hypotension. PHYSICAL EXAMINATION: On examination today, blood pressure today is 128/75, heart rate 69 per minute. She is afebrile. Examination of the heart S1, S2. Examination of the lungs bilateral breath sounds are heard. ABDOMEN: Soft, distended, nontender. Ascites noted. Examination lower extremities shows no significant edema. SURVIVAL SPECIALIST exam is grossly intact. LABS: Show sodium 141, potassium 3.9, BUN 19, serum creatinine 1.8, hemoglobin 8.6 g/dL. ASSESSMENT: 1. Acute kidney injury. Rule out underlying MP GN associated with hepatitis C. All serologies came back negative except for hepatitis C and viral RNA. Hep C viral RNA was detected at 224,875. I have discussed with the patient that she may need a kidney biopsy to rule out underlying MP GN. She does need treatment for hepatitis C and patient states she follows with Dr. Mcdaniel and will see her after the new year. 2. Hepatitis C with possible underlying GN and to follow up with Dr. Mcdaniel regarding treatment for hepatitis C. 3. Liver cirrhosis and portal hypertension with recurrent ascites status post paracentesis of 2.8 L done yesterday. 4. Anemia with no evidence of iron deficiency. No bleeding noted. I will start the patient on Aranesp. PLAN: Continue with IV fluids. Add Aranesp. Consider kidney biopsy which could be done as outpatient as well and patient does need treatment for hepatitis C. Given her underlying renal failure and possible underlying GN with proteinuria. MMODL / IJN: [id number] /
--- NOTE | 2018-09-16 10:59 | PN ---
PROGRESS NOTE DATE OF SERVICE: 09/16/2018 Patient is a 53-year-old pleasant white female with history of alcoholic cirrhosis of the liver, admitted to the hospital with abdominal pain, abdominal distention and anemia. She underwent large volume paracentesis yesterday and 2 L of fluid was aspirated. She is noted to have elevated BUN and creatinine. Nephrology following the patient closely. Presently not on any diuretics: She states that she still has some abdominal discomfort. No nausea, vomiting. PHYSICAL EXAMINATION: She appears comfortable. No apparent distress. VITAL SIGNS: Stable. Blood pressure is 105/76, pulse is 61, temperature 98.8. HEENT examination unremarkable. Conjunctivae pink. Sclerae anicteric. Oral cavity no lesions. NECK: No JVD or lymph node enlargement. Chest was clear to auscultation. HEART: Regular rate and rhythm. ABDOMEN: Soft. There was no tenderness in the epigastric and right upper quadrant area. Extremities: No pedal edema. Skin no rashes. NEUROLOGIC: Alert and oriented x3. No focal deficits. LABS: From today WBC 4.4, hemoglobin 8.6, platelets are 99,000. AST 43, ALT 28, T-bilirubin and alkaline phosphatase are within normal limits. Albumin is 1.8. Ascitic fluid analysis: Albumin less than 1. Cytology pending. IMPRESSION: 1. Alcoholic cirrhosis of the liver with portal hypertension and ascites, status post large volume paracentesis and 2 L of fluid was aspirated yesterday. 2. Elevated BUN, creatinine, for which nephrology following the patient closely. Presently on no diuretics. 3. History of chronic hepatitis C infection. 4. Mild pancytopenia related to underlying chronic liver disease/cirrhosis of the liver. RECOMMENDATIONS: 1. I had a lengthy discussion with the patient regarding abstinence from alcohol. 2. Continue with IV hydration and hold diuretics. 3. Repeat labs in the morning and will follow with you closely. MMODL / IJN: [id number] /
--- NOTE | 2018-09-16 11:33 | P.PN ---
Subjective Progress Note Date: 09/16/18 This is a 53-year-old female patient who presented from her primary care provider with complaints of hematuria. She states that for the past 2 days she has had right upper quadrant abdominal pain with nausea and hematuria patient also complaining of increasing shortness of breath and productive cough for the past 2 weeks. Patient does have a significant past medical history for hepatitis C. Patient states she was a heavy drinker up until one month ago, anxiety, liver cirrhosis, depression, COPD, hypertension and nicotine dependence. Chest x-ray completed showing no suspicion for acute cardiopulmonary process. Venous Doppler study completed showing negative for DVT. CT of abdomen and pelvis completed showing cirrhosis with evidence of portal hypertension and there is splenomegaly and worsening moderate amount of abdominal and pelvic ascites. No renal calculi or hydronephrosis evident bilaterally. No significant findings seen to account for patient's symptoms hematuria. Gallbladder ultrasound completed showing hepatic cirrhosis and small volume perihepatic ascites. Gallbladder is tract it in there is no current sonographic evidence of acute cholecystitis. D-dimer elevated at 3.19. VQ scan completed showing low probability for pulmonary embolus. Matched defects are seen within the lower lobes on posterior images only. Additionally central radiotracer clumping limits evaluation of perfusion imaging to suggest airway disease. CT completed showing sinus bradycardia heart rate 59. UA showing large amounts blood. Patient also in acute kidney injury creatinine 1.89 bun 20. Lipase elevated at 322. Ammonia 44. Patient also seeing her ascites has become significantly worse over the past month. Dr. Olson has been consulted for nephrology services. Dr. العلي has been consulted for GI. At this time patient denies chest pain or shortness breath. Patient is complaining of some nausea and abdominal tenderness. Patient denies urinary burning or frequency. On 09/15/2018 patient is currently resting in bed. Discussed case with GI services. Planning for paracentesis today at noon. At this time patient is still complaining of some abdominal discomfort with nausea. Patient denies chest pain or shortness breath. Patient denies any urinary burning or frequency. Patient is still having some hematuria. Hemoglobin dropped to 8.5. On 09/16/2018 patient is currently resting in bed. Patient states she is sleepy patient does report some improvement with abdominal discomfort post paracentesis. Per nephrology services continue IV fluid at this time. Patient denies chest pain or shortness of breath. Patient denies nausea vomiting or diarrhea. Patient denies any urinary or frequency Objective - Vital Signs Vital signs: Vital Signs Temp 98.4 F 09/16/18 05:33 Pulse 70 09/16/18 08:00 Resp 16 09/16/18 08:00 BP 128/75 09/16/18 05:33 Pulse Ox 95 09/16/18 05:33 Intake & Output 09/15/18 09/16/18 09/16/18 18:59 06:59 18:59 Intake Total 1480 2550 Output Total 2820 2820 Balance -1340 -270 Weight 104.54 kg Intake: Intake, IV Titration 900 900 Amount Sodium Chloride 0.9% 1, 900 900 000 ml @ 75 mls/hr IV . [id number] [facility] Rx#:[id number] Oral 580 1650 Output: Drainage 2820 2820 Left Abdomen 2820 2820 Other: Voiding Method Toilet Toilet Toilet # Voids 3 2 - Exam Head normocephalic Neck supple Lungs clear to auscultation bilaterally no wheezing or crackles Heart regular rate and rhythm S1-S2, no rub or gallop Abdomen is tender to palpation. Ascites noted Extremities no edema Neuro alert and orientated to 3 - Labs CBC & Chem 7: 09/16/18 06:33 09/16/18 06:33 Labs: Abnormal Lab Results - Last 24 Hours (Table) 09/14/18 09/16/18 09/16/18 Range/Units 12:32 06:33 06:33 RBC 2.72 L (3.80-5.40) m/uL Hgb 8.6 L (11.4-16.0) gm/dL Hct 25.6 L (34.0-46.0) % Plt Count 99 L (150-450) k/uL Chloride 116 H (98-107) mmol/L Carbon Dioxide 21 L (22-30) mmol/L BUN 19 H (7-17) mg/dL Creatinine 1.81 H (0.52-1.04) mg/dL Calcium 7.5 L (8.4-10.2) mg/dL AST 43 H (14-36) U/L Total Protein 5.1 L (6.3-8.2) g/dL Albumin 1.8 L (3.5-5.0) g/dL Hepatitis C Viral RNA DETECTED H (Not detected) IU/mL Hepatitis C RNA Quant 224,875 H (<12) IU/mL HCV RNA PCR log IUs/ml 5.35 H (<1.08) Microbiology - Last 24 Hours (Table) 09/15/18 12:29 Gram Stain - Preliminary Ascites Fluid Body Fluid Culture - Preliminary 09/15/18 12:29 Anaerobic Culture - Preliminary Ascites Fluid Assessment and Plan Assessment: 1. Hematuria with anemia. Hemoglobin 10.1. UA positive for hematuria. Gallbladder ultrasound completed showing hepatic cirrhosis and small volume parahepatic ascites. Gallbladder is contracted and there is no current sonographic evidence of acute cholecystitis. Dr. Olson has been consulted. Per nephrology urine culture and Iron studies ordered. IV hydration to continue. 2. Hepatic cirrhosis. CT of abdomen and pelvis completed showing cirrhosis with evidence of portal hypertension as there is splenomegaly and worsening moderate amount of abdominal and pelvic ascites. No renal calculi or hydronephrosis evident bilaterally. No significant findings seen to account for patient's symptoms of hematuria. Further investigation with CT urogram is warranted of systems persist. Per GI consult patient to undergo paracentesis today. Aranesp added. Consider a kidney biopsy which could be done as outpatient. 3. Acute kidney injury. Creatinine 1.89 and bun 20. Nephrology services have been consulted Aldactone and Lasix currently on hold. Per nephrology services continue with IV fluids Aranesp has been added 4. History of EtOH. Patient reports heavy alcohol consumption up until one month prior. Patient states she quit one month ago 5. Hepatitis C. per GI services hepatitis see treatment outpatient will be pursued as long as patient continues to abstain from alcohol. 6. Elevated ammonia level. Ammonia 44. We'll continue monitor closely. Lactulose daily has been added per GI recommendation 7. Elevated lipase. Lipase level 322. will continue monitor closely. GI service is consulted 8. History of nicotine dependence. Patient educated greater than 3 minutes smoking cessation. Patient claims nicotine patch at this time 9. History of COPD. No exacerbation at this time 10. History of essential hypertension. Home meds resumed. Lasix and Aldactone currently on hold due to acute kidney injury 11. History of anxiety and depression DVT prophylaxis SCDs awaiting GI consult. GI prophylaxis Protonix I performed an examination of the patient and discussed their management with the Nurse Practitioner. I have reviewed the Nurse Practitioner's notes and agree with the documented findings and plan of care
[2018-09-16] MEDS: SODIUM CHLORIDE 0.9% 1,000 ML IV SCH ×2 (14:25→22:00)
[2018-09-16] MEDS: HYDROcodone/APAP 7.5-325MG 1 EACH TAB PO PRN ×2 (17:46→23:44)
[2018-09-16] MEDS: traZODone HCL 100 MG TAB PO SCH (19:17)
[2018-09-17] MEDS: HYDROcodone/APAP 7.5-325MG 1 EACH TAB PO PRN ×3 (05:43→18:18)
[2018-09-17 07:29] LABS: Albumin 1.8 g/dL (3.5-5.0); Basophils % (A) 1 %; Calcium 7.6 mg/dL (8.4-10.2); Eosinophils # (A) 0.1 k/uL (0-0.7); Eosinophils % (A) 4 %; HCT 25.5 % (34.0-46.0); HGB 8.4 gm/dL (11.4-16.0); Hypochromasia Slight; Lymphocytes # (A) 1.4 k/uL (1.0-4.8); Lymphocytes % (A) 40 %; MCH 31.4 pg (25.0-35.0); Mean Platelet Volume 8.2; Monocytes # (A) 0.3 k/uL (0-1.0); Monocytes % (A) 10 %; Neutrophils # (A) 1.5 k/uL (1.3-7.7); Neutrophils % (A) 44 %; Poikilocytosis Slight; Potassium 3.8 mmol/L (3.5-5.1); RBC 2.68 m/uL (3.80-5.40); RDW 14.2 % (11.5-15.5); Total Bilirubin 0.9 mg/dL (0.2-1.3); Total Protein 5.1 g/dL (6.3-8.2); WBC 3.5 k/uL (3.8-10.6)
[2018-09-17 07:58] LABS: Platelet Count 92 k/uL (150-450)
[2018-09-17] MEDS: PANTOPRAZOLE 40 MG TABLET PO SCH (08:52)
[2018-09-17] MEDS: METOPROLOL TARTRATE 25 MG TAB PO SCH (08:52)
[2018-09-17] MEDS: LORATADINE 10 MG TAB PO SCH (08:52)
[2018-09-17] MEDS: LACTULOSE 20 GM/30 ML CUP PO SCH (08:52)
--- NOTE | 2018-09-17 10:06 | CONS ---
CONSULTATION DATE OF SERVICE: 09/17/2018 The patient is a 53-year-old pleasant white female admitted to the hospital with cirrhosis of the liver, ascites, and acute kidney injury. She underwent large volume paracentesis 2 days ago and 2 L of fluid was aspirated and the fluid analysis was consistent with portal hypertension. The patient complains of some abdominal pain. Denies any nausea, vomiting, no other symptoms. PHYSICAL EXAMINATION: She appears comfortable. No apparent distress. VITAL SIGNS: Stable. Blood pressure is 155/91, pulse rate 59, afebrile. HEENT examination unremarkable. Conjunctivae pink. Sclerae anicteric. Oral cavity no lesions. NECK: No jugular venous distention or lymph node enlargement. Chest was clear to auscultation. HEART: Regular rate and rhythm. ABDOMEN: Soft. Mild tenderness in the epigastric area. Bowel sounds are positive. No organomegaly. EXTREMITIES: No pedal edema. SKIN: No rashes. NEUROLOGIC: Alert and oriented x3. No focal deficits. LABS: WBC 3.5, hemoglobin 8.4, platelets are 92,000. BUN is 19, creatinine 1.98. IMPRESSION: 1. 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 2. Ascites related to portal hypertension, status post large volume paracentesis 2 L of fluid was removed. Diuretics are not given because of acute kidney injury. 3. Elevated BUN and creatinine/acute versus chronic kidney injury. Dr. Olson following the patient closely. At this time she thinks it could be possibly related to glomerular nephritis from chronic hep C infection. 4. Elevated LFTs. RECOMMENDATIONS: I had a lengthy discussion with the patient regarding further management. At this time, I suggested that we will consider antiviral therapy for chronic hepatitis C infection on an outpatient basis. I have requested for a HCV genotype today and she will be seen in the office a week following discharge from the hospital. At this time we will follow her closely during her hospital stay. Thank you for this consultation. MMODL / IJN: [id number] /
--- NOTE | 2018-09-17 13:07 | P.PN ---
Subjective Progress Note Date: 09/17/18 This is a 53-year-old female patient who presented from her primary care provider with complaints of hematuria. She states that for the past 2 days she has had right upper quadrant abdominal pain with nausea and hematuria patient also complaining of increasing shortness of breath and productive cough for the past 2 weeks. Patient does have a significant past medical history for hepatitis C. Patient states she was a heavy drinker up until one month ago, anxiety, liver cirrhosis, depression, COPD, hypertension and nicotine dependence. Chest x-ray completed showing no suspicion for acute cardiopulmonary process. Venous Doppler study completed showing negative for DVT. CT of abdomen and pelvis completed showing cirrhosis with evidence of portal hypertension and there is splenomegaly and worsening moderate amount of abdominal and pelvic ascites. No renal calculi or hydronephrosis evident bilaterally. No significant findings seen to account for patient's symptoms hematuria. Gallbladder ultrasound completed showing hepatic cirrhosis and small volume perihepatic ascites. Gallbladder is tract it in there is no current sonographic evidence of acute cholecystitis. D-dimer elevated at 3.19. VQ scan completed showing low probability for pulmonary embolus. Matched defects are seen within the lower lobes on posterior images only. Additionally central radiotracer clumping limits evaluation of perfusion imaging to suggest airway disease. CT completed showing sinus bradycardia heart rate 59. UA showing large amounts blood. Patient also in acute kidney injury creatinine 1.89 bun 20. Lipase elevated at 322. Ammonia 44. Patient also seeing her ascites has become significantly worse over the past month. Dr. Olson has been consulted for nephrology services. Dr. العلي has been consulted for GI. At this time patient denies chest pain or shortness breath. Patient is complaining of some nausea and abdominal tenderness. Patient denies urinary burning or frequency. On 09/15/2018 patient is currently resting in bed. Discussed case with GI services. Planning for paracentesis today at noon. At this time patient is still complaining of some abdominal discomfort with nausea. Patient denies chest pain or shortness breath. Patient denies any urinary burning or frequency. Patient is still having some hematuria. Hemoglobin dropped to 8.5. On 09/16/2018 patient is currently resting in bed. Patient states she is sleepy patient does report some improvement with abdominal discomfort post paracentesis. Per nephrology services continue IV fluid at this time. Patient denies chest pain or shortness of breath. Patient denies nausea vomiting or diarrhea. Patient denies any urinary or frequency On 09/17/2018 patient was seen and examined on the medical floor she is alert and oriented 3 she is resting in bed she is complaining of abdominal discomfort otherwise she denies any complaints there is no fever or chills no headache or dizziness no chest pain no shortness of breath no cough no nausea or vomiting no abdominal pain and no urinary symptoms Objective - Vital Signs Vital signs: Vital Signs Temp 98.1 F 09/17/18 05:12 Pulse 64 09/17/18 08:54 Resp 16 09/17/18 08:00 BP 143/86 09/17/18 05:12 Pulse Ox 97 09/17/18 05:12 Intake & Output 09/16/18 09/17/18 09/17/18 18:59 06:59 18:59 Intake Total 1560 1660 Balance 1560 1660 Weight 104.54 kg Intake: Intake, IV Titration 600 Amount Sodium Chloride 0.9% 1, 600 000 ml @ 75 mls/hr IV . [id number] [facility] Rx#:[id number] Oral 960 1660 Other: Voiding Method Toilet Toilet Toilet # Voids 4 2 - Exam Head normocephalic and atraumatic Neck supple no JVD no goiter Lungs clear to auscultation bilaterally no wheezing or crackles Heart regular rate and rhythm S1-S2, no rub or gallop Abdomen is tender to palpation. Ascites noted Extremities no edema no cyanosis or clubbing Neuro alert and orientated to 3 - Labs CBC & Chem 7: 09/17/18 06:48 09/17/18 06:48 Labs: Abnormal Lab Results - Last 24 Hours (Table) 09/17/18 09/17/18 Range/Units 06:48 06:48 WBC 3.5 L (3.8-10.6) k/uL RBC 2.68 L (3.80-5.40) m/uL Hgb 8.4 L (11.4-16.0) gm/dL Hct 25.5 L (34.0-46.0) % Plt Count 92 L (150-450) k/uL Chloride 116 H (98-107) mmol/L BUN 19 H (7-17) mg/dL Creatinine 1.98 H (0.52-1.04) mg/dL Calcium 7.6 L (8.4-10.2) mg/dL AST 45 H (14-36) U/L Total Protein 5.1 L (6.3-8.2) g/dL Albumin 1.8 L (3.5-5.0) g/dL Microbiology - Last 24 Hours (Table) 09/14/18 18:00 Stool Culture - Preliminary Stool 09/15/18 12:29 Gram Stain - Preliminary Ascites Fluid Body Fluid Culture - Preliminary Assessment and Plan Plan: 1. Hematuria with anemia. Hemoglobin 10.1. UA positive for hematuria. Gallbladder ultrasound completed showing hepatic cirrhosis and small volume parahepatic ascites. Gallbladder is contracted and there is no current sonographic evidence of acute cholecystitis. Dr. Olson has been consulted. Per nephrology urine culture and Iron studies ordered. IV hydration to continue. 2. Hepatic cirrhosis. CT of abdomen and pelvis completed showing cirrhosis with evidence of portal hypertension as there is splenomegaly and worsening moderate amount of abdominal and pelvic ascites. No renal calculi or hydronephrosis evident bilaterally. No significant findings seen to account for patient's symptoms of hematuria. Further investigation with CT urogram is warranted of systems persist. Per GI consult patient to undergo paracentesis today. Aranesp added. Consider a kidney biopsy which could be done as outpatient. 3. Acute kidney injury. Creatinine 1.89 and bun 20. Nephrology services have been consulted Aldactone and Lasix currently on hold. Per nephrology services continue with IV fluids Aranesp has been added 4. History of EtOH. Patient reports heavy alcohol consumption up until one month prior. Patient states she quit one month ago 5. Hepatitis C. per GI services hepatitis see treatment outpatient will be pursued as long as patient continues to abstain from alcohol. 6. Elevated ammonia level. Ammonia 44. We'll continue monitor closely. Lactulose daily has been added per GI recommendation 7. Elevated lipase. Lipase level 322. will continue monitor closely. GI service is consulted 8. History of nicotine dependence. Patient educated greater than 3 minutes smoking cessation. Patient claims nicotine patch at this time 9. History of COPD. No exacerbation at this time 10. History of essential hypertension. Home meds resumed. Lasix and Aldactone currently on hold due to acute kidney injury 11. History of anxiety and depression DVT prophylaxis SCDs awaiting GI consult. GI prophylaxis Protonix
[2018-09-17] MEDS: SODIUM CHLORIDE 0.9% 1,000 ML IV SCH (17:51)
[2018-09-17] MEDS: traZODone HCL 100 MG TAB PO SCH (21:24)
--- NOTE | 2018-09-17 21:37 | PN ---
PROGRESS NOTE Patient is seen for followup for: 1. Acute kidney injury. She has underlying hepatitis C and patient is maintained on IV fluids. However, her renal function remains impaired with slight worsening in renal function. Patient has proteinuria. Hepatitis C viral load was about 2-4, 875. I have discussed kidney biopsy with the patient. At this time I will continue with the IV fluids and if we are able to perform the biopsy we will go ahead over the next day or so. The patient does need treatment for hepatitis C. 2. Hepatitis C. The patient states she will start treatment as outpatient after the new year secondary to issues with insurance. 3. Portal hypertension, recurrent ascites, status post recent paracentesis about 2 days ago. 4. Anemia with no evidence of iron deficiency. Patient has been started on Aranesp. 5. Chronic kidney disease with previous creatinine at about 1.2 mg/dL in March of 2018. Need to rule out underlying GN. PLAN: The patient should have a kidney biopsy done. Hopefully, this can be done over the next couple of days. If we are unable to obtain a biopsy over the next 1 or 2 days, the patient can be discharged and she can have the biopsy as outpatient. I do recommend treatment for hepatitis C if there is underlying GN secondary to hepatitis C. MMODL / IJN: [id number] /
[2018-09-17 23:17] VITALS: RESP 18
[2018-09-18] MEDS: HYDROcodone/APAP 7.5-325MG 1 EACH TAB PO PRN ×3 (00:26→13:46)
[2018-09-18] MEDS: SODIUM CHLORIDE 0.9% 1,000 ML IV SCH (05:15)
[2018-09-18 06:27] VITALS: BP 113/75; PULSE 60; TEMP 97.9
[2018-09-18] MEDS: METOPROLOL TARTRATE 25 MG TAB PO SCH (07:40)
[2018-09-18] MEDS: PANTOPRAZOLE 40 MG TABLET PO SCH (07:42)
[2018-09-18] MEDS: LORATADINE 10 MG TAB PO SCH (07:42)
[2018-09-18] MEDS: LACTULOSE 20 GM/30 ML CUP PO SCH (07:42)
[2018-09-18 08:01] LABS: Albumin 1.7 g/dL (3.5-5.0); Calcium 7.6 mg/dL (8.4-10.2); Potassium 3.8 mmol/L (3.5-5.1); Total Bilirubin 0.6 mg/dL (0.2-1.3); Total Protein 4.9 g/dL (6.3-8.2)
--- NOTE | 2018-09-18 08:14 | CDI ---
Documentation Clarification Form Date: 09/18/2018 8:06:43 AM From: Dorota Wheeler RN, CCDS Admit Date: 09/15/2018 1:23:00 PM Patient Name: Heidi Smith Visit Number: [id number] ATTENTION: The Clinical Documentation Specialists (CDI) and [facility] Coding Staff appreciate your assistance in clarifying documentation. Please respond to the clarification below the line at the bottom and electronically sign. The CDI & [facility] Coding staff will review the response and follow-up if needed. Please note: Queries are made part of the Legal Health Record. If you have any questions, please contact the author of this message via ITS. Dr. Kel Corona diagnosis of anemia lacks specificity to accurately reflect your patients severity of condition and clarification is needed. History/Risk Factors: A/C renal failure, COPD, HTN, Smoker, Chronic Hepatitis C, ETOH Liver Cirrhosis Clinical indicators: 09/17 Nephro Progress Note: "Anemia with no evidence of iron deficiency." 09/17 Attending Progress Note: "Hematuria with anemia." Hemoglobin: 10.1/8.5/8.6/8.4 Hematocrit: 29.7/25.2/25.6/25.5 Treatment: IVF Bolus 1L Labs AM Daily Arsenep In order to capture the severity of condition, please clarify the type of anemia and etiology if known: Acute blood loss anemia Acute on chronic blood loss anemia Chronic blood loss anemia Nutritional anemia Anemia of chronic kidney disease Anemia of chronic disease Unable to determine Other, please specify (Last Revision: June 2017) Anemia of chronic disease MTDD
--- NOTE | 2018-09-18 08:21 | CDI ---
Documentation Clarification Form Date: 09/18/2018 8:14:30 AM From: Dorota Wheeler RN, CCDS Admit Date: 09/15/2018 1:23:00 PM Patient Name: Heidi Smith Visit Number: [id number] ATTENTION: The Clinical Documentation Specialists (CDI) and [facility] Coding Staff appreciate your assistance in clarifying documentation. Please respond to the clarification below the line at the bottom and electronically sign. The CDI & [facility] Coding staff will review the response and follow-up if needed. Please note: Queries are made part of the Legal Health Record. If you have any questions, please contact the author of this message via ITS. Dr. Jamila Olson History/Risk Factors: Pt currently has LITZY, Chronic viral Hep C, patient has protienuria Clinical Indicators: Current BUN: CR: 1.89/1.84/1.81/1.98 GFR: //09/17 Nephro Progress Note: Patients Baseline BUN: CR/GFR: "Chronic kidney disease with previous creatinine at about 1.2 mg/dL in March of 2018." Treatment: IVF bolus 1L followed by 75 cc/ hr Possible kidney biopsy this admission In order to capture the severity of condition, please clarify if the condition signifies: CKD Stage 1 (GFR > 90) CKD Stage 2 (GFR 60-89) CKD Stage 3 (GFR 30-59) Other, please specify Unable to determine (Last Revision: December 2017) MTDD
[2018-09-18 08:41] LABS: Basophils % (A) 1 %; Eosinophils # (A) 0.1 k/uL (0-0.7); Eosinophils % (A) 4 %; HCT 24.4 % (34.0-46.0); HGB 8.1 gm/dL (11.4-16.0); Hypochromasia Slight; Lymphocytes # (A) 1.4 k/uL (1.0-4.8); Lymphocytes % (A) 41 %; MCH 31.8 pg (25.0-35.0); MCHC 33.3 g/dL (31.0-37.0); MCV 95.5 fL (80.0-100.0); Mean Platelet Volume 8.1; Monocytes # (A) 0.3 k/uL (0-1.0); Monocytes % (A) 9 %; Neutrophils # (A) 1.4 k/uL (1.3-7.7); Neutrophils % (A) 42 %; Poikilocytosis Slight; RBC 2.56 m/uL (3.80-5.40); RDW 13.9 % (11.5-15.5); WBC 3.3 k/uL (3.8-10.6)
[2018-09-18 08:55] LABS: Platelet Count 84 k/uL (150-450)
[2018-09-18 09:27] LABS: Toxic Granulation Present
--- NOTE | 2018-09-18 09:52 | PN ---
PROGRESS NOTE DATE OF SERVICE: 09/18/2018 Patient is a 53-year-old pleasant white female admitted to the hospital with cirrhosis/alcohol use/hepatitis C infection and new onset ascites. She underwent paracentesis 2 days ago and feeling much better. She is noted to have elevated BUN, creatinine, and Dr. Olson is following the patient closely. She is scheduled for a kidney biopsy hopefully to be done today. She denies any symptoms today. PHYSICAL EXAMINATION: On physical examination, she appears comfortable in no apparent distress. Vital signs are stable. Blood pressure is 154/66, pulse rate 55, temperature 98.1. HEENT examination unremarkable. Conjunctivae pink. Sclerae anicteric. Oral cavity, no lesions. NECK: No JVD or lymph node enlargement. CHEST: Clear to auscultation. HEART: Regular rate and rhythm. ABDOMEN: Soft. Bowel sounds are positive. No organomegaly. EXTREMITIES: No pedal edema. SKIN: No rashes. NEURO: Alert and oriented x3. No focal deficits. LABS: Labs from today: Hemoglobin 8.1, WBC 3.3, platelets 84,000. BUN 17, creatinine 1.97. IMPRESSION: 1. Cirrhosis/alcohol use/chronic hepatitis C infection. 2. New onset of ascites, status post large volume paracentesis 3 days ago. 3. Acute kidney injury versus chronic kidney injury related to possible glomerulonephritis, being followed by Dr. Olson closely. She is scheduled for kidney biopsy today. RECOMMENDATIONS: 1. Agree with kidney biopsy. 2. In regards to the chronic hepatitis C infection, I suggested that the patient follow up in the office in a week following discharge from the hospital so that we can consider antiviral therapy. 3. Abstinence from alcohol. 4. We will sign off. Please call us if needed. Thank you for this consultation. MMODL / IJN: [id number] /
--- NOTE | 2018-09-18 12:58 | P.DS ---
Providers Date of admission: 09/15/18 13:23 Expected date of discharge: 09/18/18 Attending physician: Kel Mason Consults: 09/13/18 18:20 Consult Physician Stat Consulting Provider: Jamila Olson Consult Reason/Comments: hematuria Do you want consulting provider notified?: Yes 09/14/18 10:32 Consult Physician Routine Consulting Provider: Delfin العلي Consult Reason/Comments: hep c, liver cirrhosis and increased ascites Do you want consulting provider notified?: Yes Primary care physician: [facility] Course: Discharge diagnosis 1. Hematuria with anemia of chronic disease. Hemoglobin 10.1. UA positive for hematuria. Gallbladder ultrasound completed showing hepatic cirrhosis and small volume parahepatic ascites. Gallbladder is contracted and there is no current sonographic evidence of acute cholecystitis. Dr. Olson has been consulted. Per nephrology urine culture and Iron studies ordered. IV hydration to continue. 2. Hepatic cirrhosis. CT of abdomen and pelvis completed showing cirrhosis with evidence of portal hypertension as there is splenomegaly and worsening moderate amount of abdominal and pelvic ascites. No renal calculi or hydronephrosis evident bilaterally. No significant findings seen to account for patient's symptoms of hematuria. Further investigation with CT urogram is warranted of systems persist. Per GI consult patient to undergo paracentesis today. Aranesp added. Consider a kidney biopsy which could be done as outpatient. Patient to follow-up outpatient for kidney biopsy. GI services patient will be DC'd on lactulose and follow-up with GI services 3. Acute kidney injury. Creatinine 1.89 and bun 20. Nephrology services have been consulted Aldactone and Lasix currently on hold. Per nephrology services continue with IV fluids Aranesp has been added 4. History of EtOH. Patient reports heavy alcohol consumption up until one month prior. Patient states she quit one month ago 5. Hepatitis C. per GI services hepatitis see treatment outpatient will be pursued as long as patient continues to abstain from alcohol. 6. Elevated ammonia level. Ammonia 44. We'll continue monitor closely. Lactulose daily has been added per GI recommendation 7. Elevated lipase. Lipase level 322. will continue monitor closely. GI service is consulted 8. History of nicotine dependence. Patient educated greater than 3 minutes smoking cessation. Patient claims nicotine patch at this time 9. History of COPD. No exacerbation at this time 10. History of essential hypertension. Home meds resumed. Lasix and Aldactone currently on hold due to acute kidney injury 11. History of anxiety and depression Repeat CBC and CMP will be ordered for 2 days Hosptial Course This is a 53-year-old female patient who presented from her primary care provider with complaints of hematuria. She states that for the past 2 days she has had right upper quadrant abdominal pain with nausea and hematuria patient also complaining of increasing shortness of breath and productive cough for the past 2 weeks. Patient does have a significant past medical history for hepatitis C. Patient states she was a heavy drinker up until one month ago, anxiety, liver cirrhosis, depression, COPD, hypertension and nicotine dependence. Chest x-ray completed showing no suspicion for acute cardiopulmonary process. Venous Doppler study completed showing negative for DVT. CT of abdomen and pelvis completed showing cirrhosis with evidence of portal hypertension and there is splenomegaly and worsening moderate amount of abdominal and pelvic ascites. No renal calculi or hydronephrosis evident bilaterally. No significant findings seen to account for patient's symptoms hematuria. Gallbladder ultrasound completed showing hepatic cirrhosis and small volume perihepatic ascites. Gallbladder is tract it in there is no current sonographic evidence of acute cholecystitis. D-dimer elevated at 3.19. VQ scan completed showing low probability for pulmonary embolus. Matched defects are seen within the lower lobes on posterior images only. Additionally central radiotracer clumping limits evaluation of perfusion imaging to suggest airway disease. CT completed showing sinus bradycardia heart rate 59. UA showing large amounts blood. Patient also in acute kidney injury creatinine 1.89 bun 20. Lipase elevated at 322. Ammonia 44. Patient also seeing her ascites has become significantly worse over the past month. Dr. Olson has been consulted for nephrology services. Dr. العلي has been consulted for GI. At this time patient denies chest pain or shortness breath. Patient is complaining of some nausea and abdominal tenderness. Patient denies urinary burning or frequency. On 09/15/2018 patient is currently resting in bed. Discussed case with GI services. Planning for paracentesis today at noon. At this time patient is still complaining of some abdominal discomfort with nausea. Patient denies chest pain or shortness breath. Patient denies any urinary burning or frequency. Patient is still having some hematuria. Hemoglobin dropped to 8.5. On 09/16/2018 patient is currently resting in bed. Patient states she is sleepy patient does report some improvement with abdominal discomfort post paracentesis. Per nephrology services continue IV fluid at this time. Patient denies chest pain or shortness of breath. Patient denies nausea vomiting or diarrhea. Patient denies any urinary or frequency On 09/17/2018 patient was seen and examined on the medical floor she is alert and oriented 3 she is resting in bed she is complaining of abdominal discomfort otherwise she denies any complaints there is no fever or chills no headache or dizziness no chest pain no shortness of breath no cough no nausea or vomiting no abdominal pain and no urinary symptoms On 09/18/2018 patient is alert and oriented 3. Patient expresses that she is very eager to go home. This time patient denies chest pain or shortness breath. Patient denies nausea vomiting or diarrhea. Patient denies any urinary burning or frequency. Patient to follow-up outpatient with biopsy. Will repeat CBC and CMP in 2 days to follow-up with anemia and creatinine. Patient to follow-up closely with GI and nephrology services. Patient to follow -up with primary care provider. I performed an examination of the patient and discussed their management with the Nurse Practitioner. I have reviewed the Nurse Practitioner's notes and agree with the documented findings and plan of care Patient Condition at Discharge: Stable Plan - Discharge Summary Discharge Rx Participant: No New Discharge Prescriptions: No Action RX: Spironolactone 25 mg PO DAILY Pantoprazole Sodium [Protonix] 40 mg PO DAILY RX: Metoprolol Tartrate 25 mg PO DAILY Loratadine [Claritin] 10 mg PO DAILY Furosemide [Lasix] 40 mg PO DAILY ALPRAZolam [Xanax] 0.25 mg PO BID PRN PRN Reason: Anxiety RX: traZODone HCL 100 mg PO HS Discharge Medication List ALPRAZolam [Xanax] 0.25 mg PO BID PRN 09/13/18 [History] Furosemide [Lasix] 40 mg PO DAILY 09/13/18 [History] Loratadine [Claritin] 10 mg PO DAILY 09/13/18 [History] Pantoprazole Sodium [Protonix] 40 mg PO DAILY 09/13/18 [History] RX: Metoprolol Tartrate 25 mg PO DAILY 09/13/18 [History] RX: Spironolactone 25 mg PO DAILY 09/13/18 [History] RX: traZODone HCL 100 mg PO HS 09/13/18 [History] Follow up Appointment(s)/Referral(s): Livia Mcdaniel MD [STAFF PHYSICIAN] - 10/11/18 2:00 pm Kel Mason MD [Primary Care Provider] - 1-2 days
== END 2018-09-18 14:30 | disposition home or self-care (01) | DRG 433 ==
LOC: EC 11:56 → 3NMEDONC 21:17 → OBSVTOIN 09-15 13:23
PROVIDERS: ADMIT Internal Medicine; ATTEND Internal Medicine
PROC: 0W9G3ZX Drainage of Peritoneal Cavity, Percutaneous Approach, Diagnostic (ICD-10-PCS; principal; 2018-09-15)
DX: K70.31 Alcoholic cirrhosis of liver with ascites (principal); K76.6 Portal hypertension; N17.9 Acute kidney failure, unspecified; D61.818 Other pancytopenia; I27.20 Pulmonary hypertension, unspecified; R16.1 Splenomegaly, not elsewhere classified; I12.9 Hypertensive chronic kidney disease with stage 1 through stage 4 chronic kidney disease, or unspecified chronic kidney disease; N18.9 Chronic kidney disease, unspecified; D63.8 Anemia in other chronic diseases classified elsewhere; R31.9 Hematuria, unspecified; B18.2 Chronic viral hepatitis C; F32.9 Major depressive disorder, single episode, unspecified; F41.9 Anxiety disorder, unspecified; J44.9 Chronic obstructive pulmonary disease, unspecified; M54.5 Low back pain; R80.9 Proteinuria, unspecified; F10.20 Alcohol dependence, uncomplicated; F17.210 Nicotine dependence, cigarettes, uncomplicated; Z71.6 Tobacco abuse counseling; Z79.899 Other long term (current) drug therapy; Z98.51 Tubal ligation status; Z80.9 Family history of malignant neoplasm, unspecified; Z88.8 Allergy status to other drugs, medicaments and biological substances; Z82.49 Family history of ischemic heart disease and other diseases of the circulatory system; Z82.0 Family history of epilepsy and other diseases of the nervous system
CPT/HCPCS: 36415; 49083; 71046; 74176; 76705; 78582; 80053; 81001; 82042; 82140; 82150; 82728; 82945; 83540; 83550; 83605; 83630; 83690; 85025; 85379; 85610; 86038; 86160; 86225; 86255; 86706; 86803; 87045; 87046; 87070; 87075; 87086; 87205; 87324; 87328; 87329; 87340; 87522; 88108; 88305; 88341; 88342; 89050; 93005; 93970; 96361; 96374; 96376; 99285

== ENCOUNTER → 2018-11-16 | Outpatient (CLI) | payer OTHER ==
[2018-11-16 14:17] LABS: Basophils % (A) 1 %; Eosinophils # (A) 0.1 k/uL (0-0.7); Eosinophils % (A) 3 %; HCT 27.5 % (34.0-46.0); HGB 9.2 gm/dL (11.4-16.0); Lymphocytes # (A) 1.5 k/uL (1.0-4.8); Lymphocytes % (A) 35 %; MCH 31.6 pg (25.0-35.0); MCHC 33.4 g/dL (31.0-37.0); MCV 94.6 fL (80.0-100.0); Mean Platelet Volume 7.5; Monocytes # (A) 0.4 k/uL (0-1.0); Monocytes % (A) 9 %; Neutrophils # (A) 2.1 k/uL (1.3-7.7); Neutrophils % (A) 49 %; Platelet Count 130 k/uL (150-450); Poikilocytosis Slight; RBC 2.91 m/uL (3.80-5.40); RDW 14.9 % (11.5-15.5); WBC 4.3 k/uL (3.8-10.6)
[2018-11-16 14:22] LABS: INR 1.2 (<1.2); Prothrombin Time 12.4 sec (9.0-12.0)
[2018-11-16 18:56] LABS: Urine Alcohol Negative (Negative); Urine Barbiturate Negative (Negative); Urine Cocaine Negative (Negative); Urine Methadone Negative (Negative); Urine Opiates Positive (Negative); Urine Phencyclidine Negative (Negative)
[2018-11-16 19:30] LABS: Albumin 2.2 g/dL (3.80-4.90); Albumin/Globulin Ratio 0.63 (1.60-3.17); Calcium 8.1 mg/dL (8.7-10.3); Globulin 3.5 g/dL (1.6-3.3); Potassium 4.2 mmol/L (3.5-5.5); Total Bilirubin 0.9 mg/dL (0.2-1.2); Total Protein 5.7 g/dL (6.2-8.2)
== END ==
LOC: LABWHC1 13:32
PROVIDERS: ATTEND Internal Medicine Gastroenterology
DX: Z02.83 Encounter for blood-alcohol and blood-drug test (principal); K74.60 Unspecified cirrhosis of liver
CPT/HCPCS: 36415; 80053; 80306; 82105; 85025; 85610

== ENCOUNTER → 2018-11-27 | Outpatient (CLI) | payer OTHER ==
[2018-11-28 00:44] LABS: Total Volume 24 Hour,Urine 1500 mL
== END ==
LOC: LABWHC1 11:48
PROVIDERS: ATTEND Internal Medicine
DX: N18.3 Chronic kidney disease, stage 3 (moderate) (principal)
CPT/HCPCS: 36415; 80051; 81050; 82565; 84156; 84520; 85025; 85610; 85730; 86850; 86900; 86901

== ENCOUNTER → 2018-11-28 | Day surgery (SDC) | payer OTHER ==
[2018-11-27 13:19] LABS: INR 1.2 (<1.2); Partial Thromboplastin Time 28.8 sec (22.0-30.0); Prothrombin Time 12.5 sec (9.0-12.0)
[2018-11-27 13:37] LABS: Basophils % (A) 1 %; Eosinophils # (A) 0.1 k/uL (0-0.7); Eosinophils % (A) 3 %; HCT 25.8 % (34.0-46.0); HGB 8.7 gm/dL (11.4-16.0); Hypochromasia Slight; Lymphocytes # (A) 1.6 k/uL (1.0-4.8); Lymphocytes % (A) 34 %; MCHC 33.6 g/dL (31.0-37.0); MCV 95.4 fL (80.0-100.0); Mean Platelet Volume 7.4; Monocytes # (A) 0.3 k/uL (0-1.0); Monocytes % (A) 7 %; Neutrophils # (A) 2.4 k/uL (1.3-7.7); Neutrophils % (A) 53 %; Platelet Count 122 k/uL (150-450); Poikilocytosis Slight; RDW 15.5 % (11.5-15.5); WBC 4.5 k/uL (3.8-10.6)
[2018-11-27 19:58] LABS: Anion Gap 8.4 mmol/L (4.00-12.00); Carbon Dioxide 24.6 mmol/L (21.6-31.8); Potassium 4.1 mmol/L (3.5-5.5)
[~2018-11-28] MED LIST: ALPRAZolam 0.5 MG TAB PO STA; DESMOPRESSIN ACETATE 32 MCG in SODIUM CHLORIDE 0.9% 50 ML IVPB ONE; HYDROcodone/APAP 5-325MG 1 EACH TAB PO PRN
[2018-11-28 13:08] VITALS: RESP 18
--- NOTE | 2018-11-28 13:19 | CT ---
DATE OF EXAM: 11/28/2018 COMPARISON: NONE CT DLP: 1631 mGycm HISTORY: Renal failure PROCEDURE: Maximal barrier technique was utilized. After informed consent, the skin overlying a suit able path to the left kidney was localized using CT guidance, the skin was prepped and draped. Lidoc mirela was used for local anesthesia. A skin sary made with a scalpel. Using CT guidance, a 17-gauge needle was advanced into in position at the lateral and inferior cortex of the left kidney where coax ial placement of an 18-gauge needle was used and core biopsy obtained. Three passes made in into the renal cortex following 2 passes containing only fat. Hemostasis was achieved. There was no immedia te complication and patient remained in stable condition. Specimen submitted to Pathology. IMPRESSION: Status post CT guided core biopsy of left renal cortex, pathology pending. This procedur e performed by the undersigned. Incidental note made of a large amount of ascites, anasarca changes.
[2018-11-28 16:26] VITALS: BP 141/63; PULSE 68; TEMP 97.6
== END ==
LOC: RADPROMAIN 08:25
PROVIDERS: ATTEND Internal Medicine
DX: I12.9 Hypertensive chronic kidney disease with stage 1 through stage 4 chronic kidney disease, or unspecified chronic kidney disease (principal); N18.3 Chronic kidney disease, stage 3 (moderate)
CPT/HCPCS: 86900; 86901; 80051; 82565; 84520; 85025; 85610; 85730; 86850; 36415 ×2; 50200; 77012; J2597

== ENCOUNTER → 2018-12-15 | Outpatient (CLI) | payer OTHER ==
[2018-12-15 11:56] LABS: Basophils % (A) 1 %; Eosinophils # (A) 0.3 k/uL (0-0.7); Eosinophils % (A) 5 %; HCT 25.6 % (34.0-46.0); HGB 8.4 gm/dL (11.4-16.0); Hypochromasia Slight; Lymphocytes # (A) 1.9 k/uL (1.0-4.8); Lymphocytes % (A) 39 %; MCH 31.4 pg (25.0-35.0); MCHC 32.9 g/dL (31.0-37.0); MCV 95.4 fL (80.0-100.0); Mean Platelet Volume 6.7; Monocytes # (A) 0.5 k/uL (0-1.0); Monocytes % (A) 10 %; Neutrophils # (A) 2.1 k/uL (1.3-7.7); Neutrophils % (A) 43 %; Platelet Count 144 k/uL (150-450); Poikilocytosis Slight; RBC 2.69 m/uL (3.80-5.40); RDW 15.1 % (11.5-15.5); WBC 4.7 k/uL (3.8-10.6)
[2018-12-15 16:49] LABS: Albumin 2.2 g/dL (3.80-4.90); Albumin/Globulin Ratio 0.65 (1.60-3.17); Anion Gap 6.8 mmol/L (4.00-12.00); Calcium 7.7 mg/dL (8.7-10.3); Carbon Dioxide 22.2 mmol/L (21.6-31.8); Globulin 3.4 g/dL (1.6-3.3); Potassium 4.1 mmol/L (3.5-5.5); Total Bilirubin 0.6 mg/dL (0.2-1.2); Total Protein 5.6 g/dL (6.2-8.2)
== END ==
LOC: LABWHC1 09:43
PROVIDERS: ATTEND Internal Medicine Gastroenterology
DX: K74.60 Unspecified cirrhosis of liver (principal); B18.2 Chronic viral hepatitis C
CPT/HCPCS: 36415; 80053; 85025; 86803

== ENCOUNTER → 2018-12-29 | Outpatient (CLI) | payer OTHER | END | disposition home or self-care (01) | LOC: LABWHC1 13:01 | PROVIDERS: ATTEND Physician Assistant | DX: B18.2 Chronic viral hepatitis C (principal) | CPT/HCPCS: 36415 ==

== ENCOUNTER 2019-01-12 19:15 | Inpatient (IN) | payer OTHER ==
--- NOTE | 2019-01-12 19:28 | ED ---
Recheck HPI - General Stated Complaint: Diff Breathing, Enlarged breast Time Seen by Provider: 01/12/19 19:27 Source: RN notes reviewed, old records reviewed - History of Present Illness Initial Comments: This is a 53-year-old female the ER for evaluation. Patient presents today for shortness of breath. No history of liver disease and cirrhosis secondary to hepatitis C and alcohol. Patient has significant swelling of abdomen is causing her difficulty breathing. Patient also complains of abdominal pain. Patient also complains of left breast drainage, rash underneath left breast. Patient denies any fevers, no cough or congestion. No recent travel history or sick contacts MD Complaint: other (Significant abdominal ascites) -: week(s) Returns Today for: persistent/worsening pain related to initial visit Symptoms Since Prior Visit: worsening pain Associated Symptoms: none - Related Data Home Medications Medication Instructions Recorded Confirmed ALPRAZolam [Xanax] 0.25 mg PO BID PRN 09/13/18 01/12/19 Metoprolol Tartrate 25 mg PO DAILY 09/13/18 01/12/19 Furosemide [Lasix] 40 mg PO DAILY 11/21/18 01/12/19 HYDROcodone/APAP 10-325MG [[place] 1 tab PO BID 11/21/18 01/12/19 10-325] Spironolactone [Aldactone] 25 mg PO DAILY 11/21/18 01/12/19 Allopurinol [Zyloprim] 100 mg PO DAILY 01/12/19 01/12/19 Ergocalciferol (Vitamin D2) 50,000 unit PO Q14D 01/12/19 01/12/19 [Vitamin D2] Pantoprazole Sodium [Protonix] 40 mg PO DAILY 01/12/19 01/12/19 Allergies Allergy/AdvReac Type Severity Reaction Status Date / Time bupropion [From Wellbutrin] AdvReac seizure Verified 01/12/19 20:02 Review of Systems ROS Statement: Those systems with pertinent positive or pertinent negative responses have been documented in the HPI. ROS Other: All systems not noted in ROS Statement are negative. Past Medical History Past Medical History: COPD, Hypertension, Liver Disease, Renal Disease Additional Past Medical History / Comment(s): lower back pain from previous injury, Hep C, liver cirrhosis, decreased kidney function, frequent diarrhea, fluid retention in abdomen History of Any Multi-Drug Resistant Organisms: None Reported Past Surgical History: Tubal Ligation Past Anesthesia/Blood Transfusion Reactions: No Reported Reaction Additional Past Anesthesia/Blood Transfusion Reaction / Comment(s): claustrophobia Past Psychological History: Anxiety, Depression Smoking Status: Current every day smoker Past Alcohol Use History: Abuse Additional Past Alcohol Use History / Comment(s): started smoking at age 12,used to smoke 1 ppd but has cut down to 1/2 ppd, quit drinking July 2018, used to drink rum & beer-8 beers daily & liquor also daily Past Drug Use History: None Reported - Past Family History Father History Unknown: Yes Family Medical History: Cancer Additional Family Medical History / Comment(s): unk type Mother History Unknown: Yes Family Medical History: AFIB, Congestive Heart Failure (CHF), Myocardial Infarction ([place]), Seizure Disorder General Exam - General Exam Comments Initial Comments: Significant abdomen ascites Left breast intertrigo General appearance: alert, in no apparent distress Head exam: Present: atraumatic, normocephalic, normal inspection Eye exam: Present: normal appearance, PERRL, EOMI. Absent: scleral icterus, conjunctival injection, periorbital swelling ENT exam: Present: normal exam, mucous membranes moist Neck exam: Present: normal inspection. Absent: tenderness, meningismus, lymphadenopathy Respiratory exam: Present: normal lung sounds bilaterally. Absent: respiratory distress, wheezes, rales, rhonchi, stridor Cardiovascular Exam: Present: regular rate, normal rhythm, normal heart sounds. Absent: systolic murmur, diastolic murmur, rubs, gallop, clicks GI/Abdominal exam: Present: soft, normal bowel sounds. Absent: distended, tenderness, guarding, rebound, rigid Extremities exam: Present: normal inspection, full ROM, normal capillary refill. Absent: tenderness, pedal edema, joint swelling, calf tenderness Back exam: Present: normal inspection Neurological exam: Present: alert, oriented X3, CN II-XII intact Psychiatric exam: Present: normal affect, normal mood Skin exam: Present: warm, dry, intact, normal color. Absent: rash Course Vital Signs 01/12/19 01/12/19 01/12/19 19:28 20:45 21:52 Temperature 98.2 F 97.9 F Pulse Rate 51 L 51 L 50 L Respiratory 19 20 18 Rate Blood Pressure 164/90 162/88 167/89 O2 Sat by Pulse 96 100 98 Oximetry - Reevaluation(s) Reevaluation #1: 01/12/19 21:58 Medical record is reviewed Reevaluation #2: 01/12/19 21:58 Patient is in no distress Medical Decision Making - Medical Decision Making 53 female the ER for evaluation. Patient positive significant ascites will admit for interventional radiology drainage as well as treatment of intertrigo - Lab Data Result diagrams: 01/12/19 19:50 01/12/19 19:50 Lab Results 01/12/19 01/12/19 01/12/19 Range/Units 19:50 19:50 19:50 WBC 6.2 (3.8-10.6) k/uL RBC 3.06 L (3.80-5.40) m/uL Hgb 9.7 L (11.4-16.0) gm/dL Hct 29.4 L (34.0-46.0) % MCV 96.0 (80.0-100.0) fL MCH 31.5 (25.0-35.0) pg MCHC 32.9 (31.0-37.0) g/dL RDW 16.2 H (11.5-15.5) % Plt Count 137 L (150-450) k/uL Neutrophils % 59 % Lymphocytes % 27 % Monocytes % 10 % Eosinophils % 2 % Basophils % 0 % Neutrophils # 3.7 (1.3-7.7) k/uL Lymphocytes # 1.6 (1.0-4.8) k/uL Monocytes # 0.6 (0-1.0) k/uL Eosinophils # 0.1 (0-0.7) k/uL Basophils # 0.0 (0-0.2) k/uL Hypochromasia Slight Poikilocytosis Slight Anisocytosis Slight Sodium 140 (137-145) mmol/L Potassium 3.4 L (3.5-5.1) mmol/L Chloride 114 H (98-107) mmol/L Carbon Dioxide 20 L (22-30) mmol/L Anion Gap 6 mmol/L BUN 40 H (7-17) mg/dL Creatinine 1.56 H (0.52-1.04) mg/dL Est GFR (CKD-EPI)AfAm 44 (>60 ml/min/1.73 sqM) Est GFR (CKD-EPI)NonAf 38 (>60 ml/min/1.73 sqM) Glucose 88 (74-99) mg/dL Calcium 8.3 L (8.4-10.2) mg/dL Phosphorus 4.5 (2.5-4.5) mg/dL Magnesium 1.8 (1.6-2.3) mg/dL Total Bilirubin 0.8 (0.2-1.3) mg/dL AST 46 H (14-36) U/L ALT 34 (9-52) U/L Alkaline Phosphatase 80 (38-126) U/L Ammonia 85 H (<30) umol/L Total Protein 6.0 L (6.3-8.2) g/dL Albumin 2.3 L (3.5-5.0) g/dL Amylase 73 (30-110) U/L Lipase 424 H (23-300) U/L - EKG Data -: EKG Interpreted by Me (EKG shows junctional rhythm rate of 80, QRS 94, QTc 438) - Radiology Data Radiology results: report reviewed (Chest x-rays negative for acute disease), image reviewed Disposition Clinical Impression: Alcoholic liver disease, Chronic hepatitis C, Dehydration, Alcoholic hepatitis with ascites, Intertrigo Disposition: ADMITTED IP TO THIS HOSP Condition: Fair Is patient prescribed a controlled substance at d/c from ED?: No
[2019-01-12] MEDS ORDERED: MORPHINE SULFATE 4 MG/ML SYRINGE IV STA (20:24)
[2019-01-12 20:43] LABS: Anisocytosis Slight; Basophils % (A) 0 %; Eosinophils # (A) 0.1 k/uL (0-0.7); Eosinophils % (A) 2 %; HCT 29.4 % (34.0-46.0); HGB 9.7 gm/dL (11.4-16.0); Hypochromasia Slight; Lymphocytes # (A) 1.6 k/uL (1.0-4.8); Lymphocytes % (A) 27 %; MCH 31.5 pg (25.0-35.0); MCHC 32.9 g/dL (31.0-37.0); Mean Platelet Volume 7.5; Monocytes # (A) 0.6 k/uL (0-1.0); Monocytes % (A) 10 %; Neutrophils # (A) 3.7 k/uL (1.3-7.7); Neutrophils % (A) 59 %; Platelet Count 137 k/uL (150-450); Poikilocytosis Slight; RBC 3.06 m/uL (3.80-5.40); RDW 16.2 % (11.5-15.5); WBC 6.2 k/uL (3.8-10.6)
--- NOTE | 2019-01-12 20:43 | XR ---
EXAMINATION TYPE: XR chest 2V DATE OF EXAM: 01/12/2019 COMPARISON: 09/13/2018 HISTORY: Chest pain TECHNIQUE: Frontal and lateral views of the chest are obtained. FINDINGS: There is no focal air space opacity. No evidence for pneumothorax. No pleural effusion. The cardiac silhouette size is within normal limits. The osseous structures are grossly intact. IMPRESSION: 1. No acute cardiopulmonary process.
[2019-01-12 20:55] LABS: Albumin 2.3 g/dL (3.5-5.0); Calcium 8.3 mg/dL (8.4-10.2); Magnesium 1.8 mg/dL (1.6-2.3); Phosphorus 4.5 mg/dL (2.5-4.5); Potassium 3.4 mmol/L (3.5-5.1); Total Bilirubin 0.8 mg/dL (0.2-1.3)
[2019-01-12 22:03] LABS: Appearance,Urine Clear (Clear); Bacteria,Urine Rare /hpf; Bilirubin,Urine Negative (Negative); Blood,Urine Large (Negative); Budding Yeast,Urine Rare /hpf; Cellular Casts,Urine 4 /lpf (0); Color,Urine Yellow; Glucose,Urine (UA) Negative (Negative); Hyaline Casts,Urine 29 /lpf (0-2); Ketones,Urine Negative (Negative); Leukocyte Esterase,Urine Trace (Negative); Mucus,Urine Rare /hpf; Nitrite,Urine Negative (Negative); Protein,Urine 3+ (Negative); RBC,Urine >182 /hpf (0-5); Specific Gravity,Urine 1.012 (1.001-1.035); Squamous Epithelial Cell,Urine 3 /hpf (0-4); Urobilinogen,Urine <2.0 mg/dL (<2.0); WBC,Urine 10 /hpf (0-5)
[2019-01-13] MEDS: NYSTATIN 100,000 UNIT/GM POWD 15 GM TOPICAL SCH ×4 (00:07→20:13)
[2019-01-13] MEDS: MORPHINE SULFATE 4 MG/ML SYRINGE IVP PRN ×6 (00:42→23:52)
[2019-01-13 02:14] VITALS: BMI 44.0
[2019-01-13] MEDS: IPRATROPIUM-ALBUTEROL 3 ML NEB INHALATION SCH ×4 (09:38→19:25)
[2019-01-13] MEDS ORDERED: ALPRAZolam 0.25 MG TAB PO PRN (11:41)
--- NOTE | 2019-01-13 11:43 | P.HPIM ---
History of Present Illness H&P Date: 01/13/19 Chief Complaint: shortness of breath This is a 53-year-old female with a history of hepatitis C and cirrhosis. The patient presented to the emergency department complaining of shortness of breath. She states it has been worsening over the past few weeks. She states that she has had abdominal swelling which is making her very uncomfortable. She states in the past she has had one paracentesis. She also has a rash underneath her left breast. She denies fever, chills. Chest x-ray was obtained and shows no acute process. EKG shows second-degree AV block. The patient was also found to have a creatinine of 1.56 as well as trace leukocyte esterase in her urine. Review of Systems All systems: negative Past Medical History Past Medical History: COPD, Hypertension, Liver Disease, Renal Disease Additional Past Medical History / Comment(s): lower back pain from previous injury, Hep C, liver cirrhosis, decreased kidney function, frequent diarrhea, fluid retention in abdomen History of Any Multi-Drug Resistant Organisms: None Reported Past Surgical History: Tubal Ligation Past Anesthesia/Blood Transfusion Reactions: No Reported Reaction Additional Past Anesthesia/Blood Transfusion Reaction / Comment(s): claustrophobia Past Psychological History: Anxiety, Depression Additional Psychological History / Comment(s): . Smoking Status: Current every day smoker Past Alcohol Use History: Abuse Additional Past Alcohol Use History / Comment(s): started smoking at age 12,used to smoke 1 ppd but has cut down to 1/2 ppd, quit drinking July 2018, used to drink rum & beer-8 beers daily & liquor also daily Past Drug Use History: None Reported - Past Family History Father History Unknown: Yes Family Medical History: Cancer Additional Family Medical History / Comment(s): unk type Mother History Unknown: Yes Family Medical History: AFIB, Congestive Heart Failure (CHF), Myocardial Infarction ([place]), Seizure Disorder Medications and Allergies Home Medications Medication Instructions Recorded Confirmed Type ALPRAZolam [Xanax] 0.25 mg PO BID PRN 09/13/18 01/12/19 History Metoprolol Tartrate 25 mg PO DAILY 09/13/18 01/12/19 History Furosemide [Lasix] 40 mg PO DAILY 11/21/18 01/12/19 History HYDROcodone/APAP 10-325MG [[place] 1 tab PO BID 11/21/18 01/12/19 History 10-325] Spironolactone [Aldactone] 25 mg PO DAILY 11/21/18 01/12/19 History Allopurinol [Zyloprim] 100 mg PO DAILY 01/12/19 01/12/19 History Ergocalciferol (Vitamin D2) 50,000 unit PO Q14D 01/12/19 01/12/19 History [Vitamin D2] Pantoprazole Sodium [Protonix] 40 mg PO DAILY 01/12/19 01/12/19 History Allergies Allergy/AdvReac Type Severity Reaction Status Date / Time bupropion [From Wellbutrin] AdvReac seizure Verified 01/12/19 20:02 Physical Exam Osteopathic Statement: *. No significant issues noted on an osteopathic structural exam other than those noted in the History and Physical/Consult. Vitals: Vital Signs Temp Pulse Pulse Resp BP BP Pulse Ox 01/13/19 09:38 80 01/13/19 08:00 98.2 F 55 L 18 159/92 97 01/12/19 23:36 97.8 F 48 L 18 162/80 99 01/12/19 22:55 54 L 01/12/19 21:52 97.9 F 50 L 18 167/89 98 01/12/19 20:45 51 L 20 162/88 100 01/12/19 19:28 98.2 F 51 L 19 164/90 96 Intake and Output 01/12/19 01/13/19 01/13/19 22:59 06:59 14:59 Intake Total 200 Output Total 200 Balance 0 Intake: Oral 200 Output: Urine 200 Other: Voiding Method Toilet Weight 112.718 kg Gen.: Patient is alert and oriented 3, no acute distress Cardiovascular: Regular rate and rhythm, S1/S2 Lungs: Diminished breath sounds at the bases otherwise clear Abdomen: Soft, diffuse ascites, positive bowel sounds Extremities: Trace edema Results CBC & Chem 7: 01/12/19 19:50 01/12/19 19:50 Labs: Abnormal Lab Results - Last 24 Hours (Table) 01/12/19 01/12/19 01/12/19 Range/Units 19:50 19:50 19:50 RBC 3.06 L (3.80-5.40) m/uL Hgb 9.7 L (11.4-16.0) gm/dL Hct 29.4 L (34.0-46.0) % RDW 16.2 H (11.5-15.5) % Plt Count 137 L (150-450) k/uL Potassium 3.4 L (3.5-5.1) mmol/L Chloride 114 H (98-107) mmol/L Carbon Dioxide 20 L (22-30) mmol/L BUN 40 H (7-17) mg/dL Creatinine 1.56 H (0.52-1.04) mg/dL Calcium 8.3 L (8.4-10.2) mg/dL AST 46 H (14-36) U/L Ammonia 85 H (<30) umol/L Total Protein 6.0 L (6.3-8.2) g/dL Albumin 2.3 L (3.5-5.0) g/dL Lipase 424 H (23-300) U/L Urine Protein (Negative) Urine Blood (Negative) Ur Leukocyte Esterase (Negative) Urine RBC (0-5) /hpf Urine WBC (0-5) /hpf Urine Bacteria (None) /hpf Hyaline Casts (0-2) /lpf Urine Mucus (None) /hpf Urine Yeast (Budding) (None) /hpf 01/12/19 Range/Units 21:07 RBC (3.80-5.40) m/uL Hgb (11.4-16.0) gm/dL Hct (34.0-46.0) % RDW (11.5-15.5) % Plt Count (150-450) k/uL Potassium (3.5-5.1) mmol/L Chloride (98-107) mmol/L Carbon Dioxide (22-30) mmol/L BUN (7-17) mg/dL Creatinine (0.52-1.04) mg/dL Calcium (8.4-10.2) mg/dL AST (14-36) U/L Ammonia (<30) umol/L Total Protein (6.3-8.2) g/dL Albumin (3.5-5.0) g/dL Lipase (23-300) U/L Urine Protein 3+ H (Negative) Urine Blood Large H (Negative) Ur Leukocyte Esterase Trace H (Negative) Urine RBC >182 H (0-5) /hpf Urine WBC 10 H (0-5) /hpf Urine Bacteria Rare H (None) /hpf Hyaline Casts 29 H (0-2) /lpf Urine Mucus Rare H (None) /hpf Urine Yeast (Budding) Rare H (None) /hpf Microbiology - Last 24 Hours (Table) 01/12/19 21:18 Urine Culture - Preliminary Urine,Voided Chest x-ray: report reviewed, image reviewed Thrombosis Risk Factor Assmnt - DVT/VTE Prophylaxis DVT/VTE Prophylaxis: Pharmacologic Prophylaxis ordered, Mechanical Prophylaxis ordered - Choose All That Apply Each Factor Represents 1 point: Abnormal pulmonary function (COPD), Age 41-60 years, Obesity (BMI >25) Other Risk Factors: No Other congenital or acquired thrombophilia - If yes, enter type in comment: No Thrombosis Risk Factor Assessment Total Risk Factor Score: 3 Thrombosis Risk Factor Assessment Level: Moderate Risk Assessment and Plan Assessment: Ascites with history of hepatitis C and alcoholic cirrhosis Portal hypertension Anemia, normochromic normocytic Mild thrombocytopenia Mild hypokalemia Acute kidney injury on chronic kidney disease, question hepatorenal syndrome Leukocyte esterase in the urine, check urine culture History of COPD, not acutely exacerbated Hypertension Anxiety and depression Consult GI for cirrhosis Consult nephrology for kidney injury Consult IR for paracentesis GI and DVT prophylaxis Check ammonia level, iron, b12, folate levels Abdominal US Urine culture Continue patient's home medications Pain control IS and pulmonary hygiene Abstinence from alcohol and nicotine Monitor labs closely Patient seen and examined covering for Dr. Mason
[2019-01-13] MEDS: SPIRONOLACTONE 25 MG TAB PO SCH (11:59)
[2019-01-13] MEDS: FUROSEMIDE 40 MG TAB PO SCH ×2 (11:59→12:27)
[2019-01-13] MEDS: METOPROLOL SUCCINATE (ER) 25 MG TAB.ER.24H PO SCH (11:59)
[2019-01-13] MEDS: HYDROcodone/APAP 10-325MG 1 EACH TAB PO PRN ×2 (11:59→20:12)
--- NOTE | 2019-01-13 12:11 | US ---
EXAMINATION TYPE: US abdomen limited DATE OF EXAM: 01/13/2019 COMPARISON: NONE CLINICAL HISTORY: ascites, cirrhosis. ascites Mild to moderate abdominal ascites noted IMPRESSION: Ascites
--- NOTE | 2019-01-13 14:27 | P.NPCON ---
History of Present Illness - Reason for Consult Consult date: 01/13/19 acute renal failure - Chief Complaint Acute kidney injury and chronic kidney disease - History of Present Illness This is a 53-year-old female known to us with chronic kidney disease, had a kidney biopsy recently earlier this month and had been started on prednisone at 30 minute gram twice a day because of her diagnosis of IgA nephropathy. She was admitted because of tight ascites for possible tap. She's had 1 tab in August 2018 4 months ago. She is known with hepatitis C and cirrhosis. She was also on alcohol he could quit in August He was treated partially supposedly sometime in the past for hep C but did not take the medications. Currently she is complaining of abdominal discomfort otherwise no fever chills cough shortness of breath. She's been able to tolerate the prednisone so far for about the last 1 week at 30 twice a day to be continued for 1 more week and then start tapering it down. Seemingly is no hep C related kidney disease other than possible relationship to IgA. She needs to be treated for the hep C hopefully it'll also improve the renal prognosis Denies any nausea vomiting diarrhea abdominal pain no fever chills cough no dysuria frequency Past Medical History Past Medical History: COPD, Hypertension, Liver Disease, Renal Disease Additional Past Medical History / Comment(s): lower back pain from previous injury, Hep C, liver cirrhosis, decreased kidney function, frequent diarrhea, fluid retention in abdomen History of Any Multi-Drug Resistant Organisms: None Reported Past Surgical History: Tubal Ligation Past Anesthesia/Blood Transfusion Reactions: No Reported Reaction Additional Past Anesthesia/Blood Transfusion Reaction / Comment(s): claustrophobia Past Psychological History: Anxiety, Depression Additional Psychological History / Comment(s): . Smoking Status: Current every day smoker Past Alcohol Use History: Abuse Additional Past Alcohol Use History / Comment(s): started smoking at age 12,used to smoke 1 ppd but has cut down to 1/2 ppd, quit drinking July 2018, used to drink rum & beer-8 beers daily & liquor also daily Past Drug Use History: None Reported - Past Family History Father History Unknown: Yes Family Medical History: Cancer Additional Family Medical History / Comment(s): unk type Mother History Unknown: Yes Family Medical History: AFIB, Congestive Heart Failure (CHF), Myocardial Infarction ([place]), Seizure Disorder Medications and Allergies Home Medications Medication Instructions Recorded Confirmed Type ALPRAZolam [Xanax] 0.25 mg PO BID PRN 09/13/18 01/12/19 History Metoprolol Tartrate 25 mg PO DAILY 09/13/18 01/12/19 History Furosemide [Lasix] 40 mg PO DAILY 11/21/18 01/12/19 History HYDROcodone/APAP 10-325MG [[place] 1 tab PO BID 11/21/18 01/12/19 History 10-325] Spironolactone [Aldactone] 25 mg PO DAILY 11/21/18 01/12/19 History Allopurinol [Zyloprim] 100 mg PO DAILY 01/12/19 01/12/19 History Ergocalciferol (Vitamin D2) 50,000 unit PO Q14D 01/12/19 01/12/19 History [Vitamin D2] Pantoprazole Sodium [Protonix] 40 mg PO DAILY 01/12/19 01/12/19 History Allergies Allergy/AdvReac Type Severity Reaction Status Date / Time bupropion [From Wellbutrin] AdvReac seizure Verified 01/12/19 20:02 Physical Exam Vitals: Vital Signs Temp Pulse Pulse Resp BP BP Pulse Ox 01/13/19 12:58 78 01/13/19 12:00 55 L 18 01/13/19 09:50 80 01/13/19 09:38 80 01/13/19 08:00 98.2 F 55 L 18 159/92 97 01/12/19 23:36 97.8 F 48 L 18 162/80 99 01/12/19 22:55 54 L 01/12/19 21:52 97.9 F 50 L 18 167/89 98 01/12/19 20:45 51 L 20 162/88 100 01/12/19 19:28 98.2 F 51 L 19 164/90 96 Intake and Output 01/12/19 01/13/19 01/13/19 22:59 06:59 14:59 Intake Total 200 Output Total 200 Balance 0 Intake: Oral 200 Output: Urine 200 Other: Voiding Method Toilet Weight 112.718 kg Examination awake alert oriented no jaundice noted. A chin exam no JVP lymphadenopathy neck is supple no facial asymmetry 160 to auscultation percussion good air entry bilaterally Heart sounds unremarkable for any murmur rub gallop Abdomen is distended with ascites. Nontender. No organomegaly was noted Extremity exam was mild edema Neurologically awake alert oriented Results - Lab Results Most recent lab results Calcium 8.3 mg/dL (8.4-10.2) L 01/12/19 19:50 Phosphorus 4.5 mg/dL (2.5-4.5) 01/12/19 19:50 Magnesium 1.8 mg/dL (1.6-2.3) 01/12/19 19:50 01/12/19 19:50 01/12/19 19:50 Assessment and Plan Assessment: Impression 1. Kidney biopsy proven IgA nephropathy, biopsy recently earlier in December 2018 and started on prednisone 30 twice a day about a week ago and currently on the same dose. Element of chronic kidney disease with fluctuating creatinine. Current creatinine of 1.56 is slightly above her baseline which would be 1.2 on 04/25/2018 and subsequently has been as high as 1.98 2. Admitted because of worsening ascites. Status post First time in August 2018 for months ago. 3. History of hep C related cirrhosis and alcoholism. Albumin is 2.3 normal AST and 34 AST slightly high at 46 total bilirubin is 0.8. 4. History of all call his him quit in August 2018 5. History of COPD and smoking., Etiology is chronic kidney disease Recommendation. 1. Start IV albumin 25 g every 8 to cover for possible paracentesis this being done. 2. Maintain medications, including the spironolactone at 25 daily and the Lasix at 40 twice a day for right now. 3. Monitor labs. 4. Needs hep C treatment, as IgA nephropathy could be related to the hep C
[2019-01-13] MEDS: ALBUMIN HUMAN 25% 50 ML in EMPTY BAG 1 BAG IVPB SCH ×5 (15:16→23:44)
--- NOTE | 2019-01-13 18:46 | P.CONS ---
History of Present Illness - Reason for Consult Consult date: 01/13/19 Cirrhosis with ascites - History of Present Illness The patient is a 53-year-old female with history of cirrhosis of the liver with ascites. She presented to the emergency department with complaint of increase in abdominal girth and shortness of breath. She was found to have increased amount of ascites. She had abdominal paracentesis on 1 prior occasion in August 2018. There is no history of fever, chills, jaundice or mental changes. No history of GI bleeding. The patient has history of excessive alcohol use and she quit completely in July 2018. There is history of chronic hepatitis C viral infection genotype 1a and has been treated with Harvoni between July 2017 and November 2017 but her blood workup in March 2018 showed positive HCV RNA. She is awaiting repeat treatment approval. There is history of chronic kidney disease stage II and she had recent kidney biopsy that showed IgA nephropathy. She was evaluated by nephrology this admission who started IV albumin anticipating her receiving larg e volume paracentesis. Review of Systems Constitutional: Denies fever, chills and unintentional weight loss Neurologic: Denies headache, blurred vision or sensory or motor changes Cardiopulmonary: No chest pains, shortness of breath or palpitations Gastrointestinal: See present illness above Endocrine: No history of diabetes or thyroid disease Hematologic: No anemia or bleeding tendency Musculoskeletal: No joint swelling or pains Skin: No rashes Psychiatric: Takes medications for anxiety Past Medical History Past Medical History: COPD, Hypertension, Liver Disease, Renal Disease Additional Past Medical History / Comment(s): lower back pain from previous injury, Hep C, liver cirrhosis, decreased kidney function, frequent diarrhea, fluid retention in abdomen History of Any Multi-Drug Resistant Organisms: None Reported Past Surgical History: Tubal Ligation Past Anesthesia/Blood Transfusion Reactions: No Reported Reaction Additional Past Anesthesia/Blood Transfusion Reaction / Comm: claustrophobia Past Psychological History: Anxiety, Depression Additional Psychological History / Comment(s): . Smoking Status: Current every day smoker Past Alcohol Use History: Abuse Additional Past Alcohol Use History / Comment(s): started smoking at age 12,used to smoke 1 ppd but has cut down to 1/2 ppd, quit drinking July 2018, used to drink rum & beer-8 beers daily & liquor also daily Past Drug Use History: None Reported - Past Family History Father History Unknown: Yes Family Medical History: Cancer Additional Family Medical History / Comment(s): unk type Mother History Unknown: Yes Family Medical History: AFIB, Congestive Heart Failure (CHF), Myocardial Infarction (OK), Seizure Disorder Medications and Allergies Home Medications Medication Instructions Recorded Confirmed Type ALPRAZolam [Xanax] 0.25 mg PO BID PRN 09/13/18 01/12/19 History Metoprolol Tartrate 25 mg PO DAILY 09/13/18 01/12/19 History Furosemide [Lasix] 40 mg PO DAILY 11/21/18 01/12/19 History HYDROcodone/APAP 10-325MG [[place] 1 tab PO BID 11/21/18 01/12/19 History 10-325] Spironolactone [Aldactone] 25 mg PO DAILY 11/21/18 01/12/19 History Allopurinol [Zyloprim] 100 mg PO DAILY 01/12/19 01/12/19 History Ergocalciferol (Vitamin D2) 50,000 unit PO Q14D 01/12/19 01/12/19 History [Vitamin D2] Pantoprazole Sodium [Protonix] 40 mg PO DAILY 01/12/19 01/12/19 History Allergies Allergy/AdvReac Type Severity Reaction Status Date / Time bupropion [From Wellbutrin] AdvReac seizure Verified 01/12/19 20:02 Physical Exam Vitals: Vital Signs Temp Pulse Pulse Resp BP BP Pulse Ox 01/13/19 16:00 98.3 F 61 16 139/84 99 01/13/19 13:10 78 01/13/19 12:58 78 01/13/19 12:00 55 L 18 01/13/19 09:50 80 01/13/19 09:38 80 01/13/19 08:00 98.2 F 55 L 18 159/92 97 01/12/19 23:36 97.8 F 48 L 18 162/80 99 01/12/19 22:55 54 L 01/12/19 21:52 97.9 F 50 L 18 167/89 98 01/12/19 20:45 51 L 20 162/88 100 01/12/19 19:28 98.2 F 51 L 19 164/90 96 Intake and Output 01/13/19 01/13/19 01/13/19 06:59 14:59 22:59 Intake Total 200 Output Total 200 Balance 0 Intake: Oral 200 Output: Urine 200 Other: Voiding Method Toilet Toilet General: Appears stated age, very pleasant in no acute distress Head and neck: Normocephalic and atraumatic, conjunctivae pink and sclerae not icteric, mucous membranes moist and pink. No masses in the neck or tracheal shifts Lungs: Clear to auscultation with no dullness to percussion Heart: Regular, no abnormal sounds, murmurs, gallops or friction rubs Abdomen: Distende/tight but still soft, no masses, organomegalies or tenderness. Bowel sounds present Extremities: No clubbing, cyanosis or edema Neurologic: Alert and oriented 3, cranial nerves grossly intact, no gross sensory or motor abnormalities. No flapping tremors Results CBC & Chem 7: 01/12/19 19:50 01/12/19 19:50 Labs: Abnormal Lab Results - Last 24 Hours (Table) 01/12/19 01/12/19 01/12/19 Range/Units 19:50 19:50 19:50 RBC 3.06 L (3.80-5.40) m/uL Hgb 9.7 L (11.4-16.0) gm/dL Hct 29.4 L (34.0-46.0) % RDW 16.2 H (11.5-15.5) % Plt Count 137 L (150-450) k/uL Potassium 3.4 L (3.5-5.1) mmol/L Chloride 114 H (98-107) mmol/L Carbon Dioxide 20 L (22-30) mmol/L BUN 40 H (7-17) mg/dL Creatinine 1.56 H (0.52-1.04) mg/dL Calcium 8.3 L (8.4-10.2) mg/dL AST 46 H (14-36) U/L Ammonia 85 H (<30) umol/L Total Protein 6.0 L (6.3-8.2) g/dL Albumin 2.3 L (3.5-5.0) g/dL Lipase 424 H (23-300) U/L Urine Protein (Negative) Urine Blood (Negative) Ur Leukocyte Esterase (Negative) Urine RBC (0-5) /hpf Urine WBC (0-5) /hpf Urine Bacteria (None) /hpf Hyaline Casts (0-2) /lpf Urine Mucus (None) /hpf Urine Yeast (Budding) (None) /hpf 01/12/19 Range/Units 21:07 RBC (3.80-5.40) m/uL Hgb (11.4-16.0) gm/dL Hct (34.0-46.0) % RDW (11.5-15.5) % Plt Count (150-450) k/uL Potassium (3.5-5.1) mmol/L Chloride (98-107) mmol/L Carbon Dioxide (22-30) mmol/L BUN (7-17) mg/dL Creatinine (0.52-1.04) mg/dL Calcium (8.4-10.2) mg/dL AST (14-36) U/L Ammonia (<30) umol/L Total Protein (6.3-8.2) g/dL Albumin (3.5-5.0) g/dL Lipase (23-300) U/L Urine Protein 3+ H (Negative) Urine Blood Large H (Negative) Ur Leukocyte Esterase Trace H (Negative) Urine RBC >182 H (0-5) /hpf Urine WBC 10 H (0-5) /hpf Urine Bacteria Rare H (None) /hpf Hyaline Casts 29 H (0-2) /lpf Urine Mucus Rare H (None) /hpf Urine Yeast (Budding) Rare H (None) /hpf Microbiology - Last 24 Hours (Table) 01/12/19 21:18 Urine Culture - Preliminary Urine,Voided Assessment and Plan Assessment: Cirrhosis of the liver possibly related to alcohol plus her HCV infection. The IgA nephropathy noted on recent biopsy is likely related to her HCV infection. Ascites is making her symptomatic at this point. Plan: I agree with plan for large volume paracentesis, ultrasound-guided and IV albumin administration, with adjustment of her diuretic regimen. Complete treatment of her HCV infection with direct acting antivirals is anticipated once her insurance approves. This can be monitored as outpatient after her discharge. Will continue to follow with you closely while she is in the hospital.
[2019-01-13] MEDS: HEPARIN SODIUM,PORCINE 5,000 UNIT/ML 1 ML VIAL SQ SCH (19:45)
[2019-01-14] MEDS: ALBUMIN HUMAN 25% 50 ML in EMPTY BAG 1 BAG IVPB SCH ×3 (00:51→08:24)
[2019-01-14] MEDS ORDERED: ALBUMIN HUMAN 25% 50 ML IV ONE (02:00)
[2019-01-14] MEDS: MORPHINE SULFATE 4 MG/ML SYRINGE IVP PRN ×5 (04:27→20:57)
[2019-01-14] MEDS: HYDROcodone/APAP 10-325MG 1 EACH TAB PO PRN ×3 (05:58→22:19)
[2019-01-14 06:12] LABS: Albumin 2.8 g/dL (3.5-5.0); Calcium 8.4 mg/dL (8.4-10.2); Potassium 3.9 mmol/L (3.5-5.1); Total Bilirubin 1.1 mg/dL (0.2-1.3); Total Protein 5.7 g/dL (6.3-8.2)
[2019-01-14 06:24] LABS: INR 1.3 (<1.2); Prothrombin Time 13.5 sec (9.0-12.0)
[2019-01-14 06:28] LABS: Anisocytosis Slight; Basophils % (A) 0 %; Eosinophils # (A) 0.2 k/uL (0-0.7); Eosinophils % (A) 3 %; HCT 23.9 % (34.0-46.0); Lymphocytes # (A) 1.7 k/uL (1.0-4.8); Lymphocytes % (A) 34 %; MCH 31.5 pg (25.0-35.0); MCHC 33.4 g/dL (31.0-37.0); MCV 94.4 fL (80.0-100.0); Mean Platelet Volume 9.3; Monocytes # (A) 0.5 k/uL (0-1.0); Monocytes % (A) 11 %; Neutrophils # (A) 2.4 k/uL (1.3-7.7); Neutrophils % (A) 49 %; Poikilocytosis Slight; RBC 2.53 m/uL (3.80-5.40); RDW 16.4 % (11.5-15.5); WBC 4.9 k/uL (3.8-10.6)
[2019-01-14 06:58] LABS: Platelet Count 70 k/uL (150-450)
[2019-01-14] MEDS: IPRATROPIUM-ALBUTEROL 3 ML NEB INHALATION SCH ×4 (07:40→19:06)
[2019-01-14] MEDS: SPIRONOLACTONE 25 MG TAB PO SCH (08:26)
[2019-01-14] MEDS: ALLOPURINOL 100 MG TAB PO SCH (08:26)
[2019-01-14] MEDS: METOPROLOL SUCCINATE (ER) 25 MG TAB.ER.24H PO SCH (08:26)
[2019-01-14] MEDS: PANTOPRAZOLE 40 MG TABLET PO SCH (08:26)
[2019-01-14] MEDS: HEPARIN SODIUM,PORCINE 5,000 UNIT/ML 1 ML VIAL SQ SCH ×2 (08:26→20:57)
[2019-01-14] MEDS: NYSTATIN 100,000 UNIT/GM POWD 15 GM TOPICAL SCH ×3 (08:26→20:58)
[2019-01-14] MEDS: FUROSEMIDE 40 MG TAB PO SCH ×2 (08:26→15:03)
[2019-01-14 09:24] VITALS: RESP 18
[2019-01-14] MEDS: predniSONE 10 MG TAB PO SCH ×2 (13:39→20:58)
--- NOTE | 2019-01-14 13:39 | P.PN ---
Subjective Progress Note Date: 01/14/19 Principal diagnosis: This is a 53-year-old female known to us with chronic kidney disease, had a kidney biopsy recently earlier this month and had been started on prednisone at 30 minute gram twice a day because of her diagnosis of IgA nephropathy. She was admitted because of tight ascites for possible tap. She's had 1 tap in August 2018, 4 months ago. Because of lack of interventional radiology services over the weekend she's been sitting here without any paracentesis done. She received IV albumin as ordered by me with the thought that she would have the paracentesis done. It'll be done tomorrow Tuesday. Currently she has feeling of bloating otherwise asymptomatic She is known with hepatitis C and cirrhosis. She was also on alcohol he could quit in August He was treated partially supposedly sometime in the past for hep C but did not take the medications. Denies any nausea vomiting diarrhea abdominal pain no fever chills cough no dysuria frequency Objective - Vital Signs Vital signs: Vital Signs Temp 98.3 F 01/14/19 08:00 Pulse 71 01/14/19 12:00 Resp 18 01/14/19 12:00 BP 169/103 01/14/19 08:00 Pulse Ox 99 01/14/19 08:00 Intake & Output 01/13/19 01/14/19 01/14/19 18:59 06:59 18:59 Intake Total 500 Output Total 950 Balance -450 Weight 113.7 kg Intake: Oral 500 Output: Urine 950 Other: Voiding Method Toilet Toilet Toilet # Voids 4 On examination she is awake alert oriented somewhat pale looking HEENT exam no JVP neck is supple no facial asymmetry Lungs clear to auscultation good air entry bilaterally Heart sounds are unremarkable Abdomen nontender with ascites which is fairly tight. Extremity exam reveals mild edema Neurologically awake alert oriented - Labs CBC & Chem 7: 01/14/19 05:48 01/14/19 05:48 Labs: Abnormal Lab Results - Last 24 Hours (Table) 01/14/19 01/14/19 01/14/19 Range/Units 05:48 05:48 05:48 RBC 2.53 L (3.80-5.40) m/uL Hgb 8.0 L D (11.4-16.0) gm/dL Hct 23.9 L (34.0-46.0) % RDW 16.4 H (11.5-15.5) % Plt Count 70 L (150-450) k/uL PT 13.5 H (9.0-12.0) sec INR 1.3 H (<1.2) APTT 31.0 H (22.0-30.0) sec Chloride 112 H (98-107) mmol/L BUN 40 H (7-17) mg/dL Creatinine 1.79 H (0.52-1.04) mg/dL Ammonia (<30) umol/L Total Protein 5.7 L (6.3-8.2) g/dL Albumin 2.8 L (3.5-5.0) g/dL 01/14/19 Range/Units 05:48 RBC (3.80-5.40) m/uL Hgb (11.4-16.0) gm/dL Hct (34.0-46.0) % RDW (11.5-15.5) % Plt Count (150-450) k/uL PT (9.0-12.0) sec INR (<1.2) APTT (22.0-30.0) sec Chloride (98-107) mmol/L BUN (7-17) mg/dL Creatinine (0.52-1.04) mg/dL Ammonia 52 H (<30) umol/L Total Protein (6.3-8.2) g/dL Albumin (3.5-5.0) g/dL Microbiology - Last 24 Hours (Table) 01/12/19 21:18 Urine Culture - Final Urine,Voided Assessment and Plan Assessment: Impression 1. Kidney biopsy proven IgA nephropathy, biopsy recently earlier in December 2018 and started on prednisone 30 twice a day about a week ago and currently on the same dose. Element of chronic kidney disease with fluctuating creatinine. Current creatinine of 1.56 is slightly above her baseline which would be 1.2 on 04/25/2018 and subsequently has been as high as 1.98 2. Admitted because of worsening ascites. Status post tap First time in August 2018 for months ago. 3. History of hep C related cirrhosis and alcoholism. Albumin is 2.3 normal AST and 34 AST slightly high at 46 total bilirubin is 0.8. 4. History of ETOH abuse, quit in August 2018 5. History of COPD and smoking., Recommendation. 1. Resume prednisone 30 bid as recoomened for IgA Neph, 2. Start IV albumin 25 g every 8 to cover for possible paracentesis this being done. 2. Maintain medications, including the spironolactone at 25 daily and the Lasix at 40 twice a day for right now. 3. Monitor labs. 4. Needs hep C treatment,
--- NOTE | 2019-01-14 18:29 | PN ---
PROGRESS NOTE Heidi Smith was seen on January 14, 2019. She has abdominal fullness. She has some mild shortness of breath and abdominal discomfort. PHYSICAL EXAMINATION: Respiratory rate is 18, pulse rate is 71, temperature 98.3, blood pressure 169/103. HEENT: Unremarkable. CHEST: Clear. Cardiovascular system revealed an S1, S2. Abdomen is distended. There is trace 1+ pedal edema. IMPRESSION: At this time: 1. Hepatitis C with alcoholic cirrhosis. 2. Ascites with portal hypertension. 3. Acute renal failure. RECOMMENDATIONS: Optimize fluid status. Plan for large volume paracentesis per GI with adjustment of her diuretic regimen and possible use of albumin. Consultants input including GI and Nephrology is appreciated and was reviewed. MMODL / IJN: [id number] /
[2019-01-15] MEDS: MORPHINE SULFATE 4 MG/ML SYRINGE IVP PRN ×2 (01:59→08:32)
[2019-01-15] MEDS: HYDROcodone/APAP 10-325MG 1 EACH TAB PO PRN (06:20)
[2019-01-15] MEDS: IPRATROPIUM-ALBUTEROL 3 ML NEB INHALATION SCH ×2 (06:55→10:38)
[2019-01-15 07:11] LABS: Basophils % (A) 0 %; Eosinophils % (A) 0 %; HCT 26.5 % (34.0-46.0); HGB 8.6 gm/dL (11.4-16.0); Hypochromasia Slight; Lymphocytes # (A) 0.6 k/uL (1.0-4.8); Lymphocytes % (A) 13 %; MCH 31.3 pg (25.0-35.0); MCHC 32.5 g/dL (31.0-37.0); MCV 96.4 fL (80.0-100.0); Mean Platelet Volume 8.9; Monocytes # (A) 0.1 k/uL (0-1.0); Monocytes % (A) 3 %; Neutrophils # (A) 3.7 k/uL (1.3-7.7); Neutrophils % (A) 83 %; Poikilocytosis Slight; RBC 2.75 m/uL (3.80-5.40); RDW 15.7 % (11.5-15.5); WBC 4.4 k/uL (3.8-10.6)
[2019-01-15 07:16] LABS: INR 1.2 (<1.2); Partial Thromboplastin Time 30.4 sec (22.0-30.0); Prothrombin Time 12.3 sec (9.0-12.0)
[2019-01-15 07:23] LABS: Albumin 3.1 g/dL (3.5-5.0); Calcium 8.6 mg/dL (8.4-10.2); Platelet Count 63 k/uL (150-450); Potassium 4.7 mmol/L (3.5-5.1); Total Bilirubin 1.2 mg/dL (0.2-1.3); Total Protein 6.3 g/dL (6.3-8.2)
--- NOTE | 2019-01-15 08:16 | P.PN ---
Subjective Patient is seen in follow-up for chronic kidney disease. Patient has chronic kidney disease stage III with baseline creatinine recently in the range of 1.5- 2. Etiology is biopsy proven IgA nephropathy as well as a component of hepatorenal syndrome. She presented with abdominal distention. She is awaiting paracentesis. Denies chest pain or shortness of breath. Good urine output. Vital signs are stable. General: The patient appeared well nourished and normally developed. HEENT: Head exam is unremarkable. Neck is without jugular venous distension. LUNGS: Lungs are clear to auscultation and percussion. Breath sounds decreased. HEART: Rate and Rhythm are regular. First and second heart sounds normal. No murmurs, rubs or gallops. ABDOMEN: Distention noted. Bowel sounds present. Nontender to palpation. EXTREMITITES: No clubbing, cyanosis, or edema. Objective - Vital Signs Vital signs: Vital Signs Temp 98.6 F 01/15/19 08:00 Pulse 68 01/15/19 08:00 Resp 18 01/15/19 08:00 BP 163/85 01/15/19 08:00 Pulse Ox 96 01/15/19 08:00 Intake & Output 01/14/19 01/15/19 01/15/19 18:59 06:59 18:59 Intake Total 480 Output Total 350 Balance 130 Weight 114.4 kg Intake: Oral 480 Output: Urine 350 Other: Voiding Method Toilet - Labs CBC & Chem 7: 01/15/19 06:49 01/15/19 06:49 Labs: Abnormal Lab Results - Last 24 Hours (Table) 01/15/19 01/15/19 01/15/19 Range/Units 06:49 06:49 06:49 RBC 2.75 L (3.80-5.40) m/uL Hgb 8.6 L (11.4-16.0) gm/dL Hct 26.5 L (34.0-46.0) % RDW 15.7 H (11.5-15.5) % Plt Count 63 L (150-450) k/uL Lymphocytes # 0.6 L (1.0-4.8) k/uL PT 12.3 H (9.0-12.0) sec INR 1.2 H (<1.2) APTT 30.4 H (22.0-30.0) sec Chloride 112 H (98-107) mmol/L BUN 47 H (7-17) mg/dL Creatinine 1.77 H (0.52-1.04) mg/dL Glucose 113 H (74-99) mg/dL Albumin 3.1 L (3.5-5.0) g/dL Assessment and Plan Plan: Assessment: 1. Chronic kidney disease stage III with baseline creatinine in the range of 1.5-2 recently. Etiology was biopsy proven IgA nephropathy. Also component of hepatorenal syndrome. GFR at baseline. 2. Ascites. Scheduled for paracentesis today. 3. Hepatitis C. She has been following with GI and is to start treatment outpatient. 4. History of alcohol abuse. 5. Anemia of chronic kidney disease. Plan: I will give her 25 g of albumin prior to paracentesis and an additional 25 g if greater than 4 L removed. Maintain prednisone 60 mg daily. This is being tapered outpatient. Maintain Aldactone. Increased to 25 mg twice daily. Resume Lasix.
[2019-01-15] MEDS: predniSONE 10 MG TAB PO SCH (08:30)
[2019-01-15] MEDS: PANTOPRAZOLE 40 MG TABLET PO SCH (08:31)
[2019-01-15] MEDS: METOPROLOL SUCCINATE (ER) 25 MG TAB.ER.24H PO SCH (08:31)
[2019-01-15] MEDS: ALLOPURINOL 100 MG TAB PO SCH (08:32)
[2019-01-15] MEDS: HEPARIN SODIUM,PORCINE 5,000 UNIT/ML 1 ML VIAL SQ SCH ×2 (08:32→09:20)
[2019-01-15] MEDS: NYSTATIN 100,000 UNIT/GM POWD 15 GM TOPICAL SCH (08:35)
[2019-01-15] MEDS ORDERED: FUROSEMIDE 40 MG TAB PO SCH (09:00)
[2019-01-15] MEDS ORDERED: SPIRONOLACTONE 25 MG TAB PO SCH (09:00)
[2019-01-15] MEDS: ALBUMIN HUMAN 25% 50 ML in EMPTY BAG 1 BAG IVPB SCH ×2 (09:46→13:05)
[2019-01-15 09:48] LABS: Iron Saturation 37.44 (12.00-45.00)
[2019-01-15 09:58] LABS: Folate, Serum 9.5 ng/mL
[2019-01-15 11:02] VITALS: TEMP 98.1
[2019-01-15 11:54] VITALS: BP 170/74; PULSE 70
--- NOTE | 2019-01-15 13:57 | US ---
EXAMINATION TYPE: US paracentesis abd w/image DATE OF EXAM: 01/15/2019 COMPARISON: Previous exam 01/13/2018 HISTORY: Ascites. PROCEDURE: Maximal barrier technique was utilized. The skin overlying a suitable pocket of fluid was localized with ultrasound and the overlying skin was prepped and draped. Ultrasound was utilized with sterile technique. Lidocaine was used for local anesthesia and a skin sary made with a scalpel. Catheter was advanced under direct ultrasound guidance into a suitable pocket of fluid and approximately 5.5 liter s of serous fluid were removed. Catheter was withdrawn and hemostasis achieved. There is no immedia te complication; the patient is discharged in stable condition. IMPRESSION: STATUS POST ULTRASOUND GUIDED PARACENTESIS FOR PALLIATION OF ASCITES. THIS PROCEDURE WA S PERFORMED BY THE UNDERSIGNED.
--- NOTE | 2019-01-15 14:34 | P.DS ---
Providers Date of admission: 01/13/19 16:33 Expected date of discharge: 01/15/19 Attending physician: Kel Mason Consults: 01/12/19 21:06 Consult Physician Routine Consulting Provider: Will Renee Consult Reason/Comments: known Do you want consulting provider notified?: Yes 01/13/19 11:38 Consult Physician Routine Consulting Provider: Jamila Olson Consult Reason/Comments: LITZY/CKD Do you want consulting provider notified?: Yes Primary care physician: [facility] Course: Discharge diagnosis 1. Shortness of breath secondary to abdominal ascites 2. Ascites with history of alcohol liver cirrhosis and hepatitis C. Status post paracentesis with 5.5 L removed 3. Portal hypertension 4. Acute on chronic kidney disease 5. Anemia of chronic kidney disease 6. IgA nephropathy on recent biopsy related to her HCV infection 7. Mild thrombocytopenia 8. Hypertension 9. Generalized anxiety disorder Hospital course This is a 53-year-old female with a history of hepatitis C and cirrhosis. The patient presented to the emergency department complaining of shortness of breath. She states it has been worsening over the past few weeks. She states that she has had abdominal swelling which is making her very uncomfortable. She states in the past she has had one paracentesis. She also has a rash underneath her left breast. She denies fever, chills. Chest x-ray was obtained and shows no acute process. EKG shows second-degree AV block. The patient was also found to have a creatinine of 1.56 as well as trace leukocyte esterase in her urine. Patient is shortness of breath has improved after her paracentesis today. She had 5.5 L removed. She also received the IV albumin after paracentesis. She was given a be discharged home this afternoon. However patient did leave AGAINST MEDICAL ADVICE. There is no changes in her medications. She was seen by nephrology and GI service during this admission. I performed an examination of the patient and discussed their management with the physician Bindery Leadperson. I have reviewed the Physician Bindery Leadperson's notes and agree with the documented findings and plan of care Patient Condition at Discharge: Stable Plan - Discharge Summary Discharge Rx Participant: No New Discharge Prescriptions: Continue Metoprolol Tartrate 25 mg PO DAILY ALPRAZolam [Xanax] 0.25 mg PO BID PRN PRN Reason: Anxiety Spironolactone [Aldactone] 25 mg PO DAILY HYDROcodone/APAP 10-325MG [[place] 10-325] 1 tab PO BID Furosemide [Lasix] 40 mg PO DAILY Ergocalciferol (Vitamin D2) [Vitamin D2] 50,000 unit PO Q14D Pantoprazole Sodium [Protonix] 40 mg PO DAILY Allopurinol [Zyloprim] 100 mg PO DAILY Discharge Medication List ALPRAZolam [Xanax] 0.25 mg PO BID PRN 09/13/18 [History] Metoprolol Tartrate 25 mg PO DAILY 09/13/18 [History] Furosemide [Lasix] 40 mg PO DAILY 11/21/18 [History] HYDROcodone/APAP 10-325MG [[place] 10-325] 1 tab PO BID 11/21/18 [History] Spironolactone [Aldactone] 25 mg PO DAILY 11/21/18 [History] Allopurinol [Zyloprim] 100 mg PO DAILY 01/12/19 [History] Ergocalciferol (Vitamin D2) [Vitamin D2] 50,000 unit PO Q14D 01/12/19 [History] Pantoprazole Sodium [Protonix] 40 mg PO DAILY 01/12/19 [History] Follow up Appointment(s)/Referral(s): Kel Mason MD [Primary Care Provider] - 3 Days Discharge Disposition: Left Against Medical Advice
== END 2019-01-15 14:20 | disposition left against medical advice (07) | DRG 432 ==
LOC: EC 19:15 → 1SOBS 21:06 → OBSVTOIN 01-13 16:33
PROVIDERS: ADMIT Internal Medicine; ATTEND Internal Medicine
PROC: 0W9G3ZZ Drainage of Peritoneal Cavity, Percutaneous Approach (ICD-10-PCS; principal; 2019-01-13)
DX: K70.31 Alcoholic cirrhosis of liver with ascites (principal); K76.7 Hepatorenal syndrome; K76.6 Portal hypertension; N17.9 Acute kidney failure, unspecified; B18.2 Chronic viral hepatitis C; D63.1 Anemia in chronic kidney disease; D69.6 Thrombocytopenia, unspecified; E86.0 Dehydration; E87.6 Hypokalemia; F17.200 Nicotine dependence, unspecified, uncomplicated; F32.9 Major depressive disorder, single episode, unspecified; F40.240 Claustrophobia; F41.1 Generalized anxiety disorder; I12.9 Hypertensive chronic kidney disease with stage 1 through stage 4 chronic kidney disease, or unspecified chronic kidney disease; I44.1 Atrioventricular block, second degree; J44.9 Chronic obstructive pulmonary disease, unspecified; K70.11 Alcoholic hepatitis with ascites; L30.4 Erythema intertrigo; N18.3 Chronic kidney disease, stage 3 (moderate); Z79.899 Other long term (current) drug therapy; Z82.0 Family history of epilepsy and other diseases of the nervous system; Z82.49 Family history of ischemic heart disease and other diseases of the circulatory system
CPT/HCPCS: 36415; 49083; 71046; 76705; 80053; 81001; 82140; 82150; 82607; 82746; 83540; 83550; 83690; 83735; 84100; 85025; 85610; 85730; 87086; 93005; 94640; 96374; 99285

== ENCOUNTER → 2019-02-01 | Outpatient (CLI) | payer OTHER ==
--- NOTE | 2019-02-02 12:35 | MM ---
Reason for exam: screening (asymptomatic). Last mammogram was performed 1 year and 5 months ago. History: Patient is postmenopausal. Physical Findings: A clinical breast exam by your physician is recommended on an annual basis and results should be correlated with mammographic findings. MG Screening Mammo w CAD Bilateral CC and MLO view(s) were taken. Prior study comparison: September 14, 2017, bilateral MG screening mammo w CAD. February 27, 2014, mammogram, performed at [facility]. The breast tissue is heterogeneously dense. This may lower the sensitivity of mammography. There is no discrete abnormality. No significant changes when compared with prior studies. ASSESSMENT: Negative, BI-RAD 1 RECOMMENDATION: Routine screening mammogram of both breasts in 1 year.
== END | disposition home or self-care (01) ==
LOC: RADMAMWWP 10:16
PROVIDERS: ATTEND Internal Medicine
DX: Z12.31 Encounter for screening mammogram for malignant neoplasm of breast (principal)
CPT/HCPCS: 77067

== ENCOUNTER 2019-02-13 09:14 | Observation (INO) | payer OTHER ==
--- NOTE | 2019-02-13 09:39 | ED ---
Abdominal Pain HPI - General Source: patient, RN notes reviewed, old records reviewed Mode of arrival: ambulatory Limitations: no limitations <Sofia Beard - Last Filed: 02/13/19 11:05> <Jason Keenan - Last Filed: 02/13/19 11:12> - General Chief Complaint: Abdominal Pain Stated Complaint: abdominal swelling/needs drained Time Seen by Provider: 02/13/19 09:21 - History of Present Illness Initial Comments: Patient is a 54-year-old female with a history of ascites due to a call is limited hepatitis C. Patient reports that she has had increased abdominal distention and complains of shortness of breath. She reports that she had a paracentesis on January 13 approximately one month ago. Patient states that she feels that she needs to have paracentesis again. She attempted to schedule an outpatient appointment after seeing her GI doctor Dr. Villavicencio for paracentesis. [place] was having a difficult time with scheduling outpatient paracentesis, so therefore Patient decided to come to emergency room for admission and paracentesis. She states that she's been feeling nauseated. She reports that she's had normal urination or bowel habits. She also has a known history of stage IV kidney disease, and to see Dr. Angelo. Patient states that she has not been eating much to feeling full and distended. Patient has no other complaints. (Sofia Beard) - Related Data Home Medications Medication Instructions Recorded Confirmed ALPRAZolam [Xanax] 0.25 mg PO BID PRN 09/13/18 02/13/19 Metoprolol Tartrate 25 mg PO DAILY 09/13/18 02/13/19 Furosemide [Lasix] 40 mg PO DAILY 11/21/18 02/13/19 HYDROcodone/APAP 10-325MG [[place] 1 tab PO BID 11/21/18 02/13/19 10-325] Spironolactone [Aldactone] 25 mg PO DAILY 11/21/18 02/13/19 Allopurinol [Zyloprim] 100 mg PO DAILY 01/12/19 02/13/19 Pantoprazole Sodium [Protonix] 40 mg PO DAILY 01/12/19 02/13/19 Folic Acid 1 mg PO DAILY 02/13/19 02/13/19 predniSONE 10 mg PO DAILY 02/13/19 02/13/19 Allergies Allergy/AdvReac Type Severity Reaction Status Date / Time bupropion [From Wellbutrin] AdvReac seizure Verified 02/13/19 09:51 Review of Systems ROS Other: All systems not noted in ROS Statement are negative. <KishaSofia - Last Filed: 02/13/19 11:05> ROS Other: All systems not noted in ROS Statement are negative. <Jason Keenan - Last Filed: 02/13/19 11:12> ROS Statement: Those systems with pertinent positive or pertinent negative responses have been documented in the HPI. Past Medical History Past Medical History: COPD, Hypertension, Liver Disease, Renal Disease Additional Past Medical History / Comment(s): lower back pain from previous injury, Hep C, liver cirrhosis, decreased kidney function, frequent diarrhea, fluid retention in abdomen History of Any Multi-Drug Resistant Organisms: None Reported Past Surgical History: Tubal Ligation Past Anesthesia/Blood Transfusion Reactions: No Reported Reaction Additional Past Anesthesia/Blood Transfusion Reaction / Comment(s): claustrophobia Past Psychological History: Anxiety, Depression Smoking Status: Current every day smoker Past Alcohol Use History: Abuse Past Drug Use History: None Reported - Past Family History Father History Unknown: Yes Family Medical History: Cancer Additional Family Medical History / Comment(s): unk type Mother History Unknown: Yes Family Medical History: AFIB, Congestive Heart Failure (CHF), Myocardial Infar ction ([place]), Seizure Disorder <Sofia Beard - Last Filed: 02/13/19 11:05> General Exam Limitations: no limitations General appearance: alert, in no apparent distress Head exam: Present: atraumatic, normocephalic, normal inspection Eye exam: Present: normal appearance, PERRL, EOMI. Absent: scleral icterus, conjunctival injection, periorbital swelling ENT exam: Present: normal exam, mucous membranes moist Neck exam: Present: normal inspection. Absent: tenderness, meningismus, lymphadenopathy Respiratory exam: Present: normal lung sounds bilaterally. Absent: respiratory distress, wheezes, rales, rhonchi, stridor Cardiovascular Exam: Present: regular rate, normal rhythm, normal heart sounds. Absent: systolic murmur, diastolic murmur, rubs, gallop, clicks GI/Abdominal exam: Present: distended (Patient's abdomen is distended), normal bowel sounds. Absent: tenderness, guarding, rebound, rigid Extremities exam: Present: normal inspection, full ROM, normal capillary refill. Absent: tenderness, pedal edema, joint swelling, calf tenderness Back exam: Present: normal inspection Neurological exam: Present: alert, oriented X3, CN II-XII intact Psychiatric exam: Present: normal affect, normal mood Skin exam: Present: warm, dry, intact, normal color. Absent: rash <Sofia Beard - Last Filed: 02/13/19 11:05> - General Exam Comments Initial Comments: This is a 54-year-old female. Alert and oriented. No significant distress. (Sofia Beard) Course Vital Signs 02/13/19 09:16 Temperature 97.8 F Pulse Rate 65 Respiratory 20 Rate Blood Pressure 178/73 O2 Sat by Pulse 100 Oximetry Medical Decision Making - Lab Data Result diagrams: 02/13/19 10:00 02/13/19 10:00 <Sofia Beard - Last Filed: 02/13/19 11:05> - Lab Data Result diagrams: 02/13/19 10:00 02/13/19 10:00 <Jason Keenan - Last Filed: 02/13/19 11:12> - Medical Decision Making 54-year-old male present emergency [place] today with complaints of abdominal distention. She said history history of ascites and complains of needing paracentesis. She lives in shortness of breath. On exam there is significant distention noted. Bowels sounds are appreciated she does report normal bowel movements. Patient has had no fevers or chills. She was complaining of chronic back pain and does have known history of kidney disease. Hematuria noted at . Kidney function is stable with no acute changes. She states it could also be related to slight hemorrhoid. Patient will be admitted at this time with consults interventional radiology. Discussed the Patient should schedule further outpatient treatments for paracentesis drainage. Patient agrees. (Sofia Beard) Case was discussed with practitioner Kisha. I did reexamine and reevaluate patient. I do agree with PA findings. This includes direct Interpretation and treatment plan. Case was also discussed with Dr. Mason who is familiar with this patient and will admit. Patient does have significant ascites on exam. He would like to consult both interventional radiology and Dr. Villavicencio. (Jason Keenan) - Lab Data Lab Results 02/13/19 02/13/19 02/13/19 Range/Units 10:00 10:00 10:00 WBC 8.1 (3.8-10.6) k/uL RBC 3.62 L (3.80-5.40) m/uL Hgb 11.4 (11.4-16.0) gm/dL Hct 35.0 (34.0-46.0) % MCV 96.8 (80.0-100.0) fL MCH 31.6 (25.0-35.0) pg MCHC 32.7 (31.0-37.0) g/dL RDW 16.7 H (11.5-15.5) % Plt Count 87 L (150-450) k/uL Neutrophils % 57 % Lymphocytes % 33 % Monocytes % 7 % Eosinophils % 0 % Basophils % 0 % Neutrophils # 4.7 (1.3-7.7) k/uL Lymphocytes # 2.7 (1.0-4.8) k/uL Monocytes # 0.5 (0-1.0) k/uL Eosinophils # 0.0 (0-0.7) k/uL Basophils # 0.0 (0-0.2) k/uL Anisocytosis Slight Macrocytosis Slight PT 11.6 (9.0-12.0) sec INR 1.1 (<1.2) APTT 25.8 (22.0-30.0) sec Sodium 141 (137-145) mmol/L Potassium 3.8 (3.5-5.1) mmol/L Chloride 114 H (98-107) mmol/L Carbon Dioxide 26 (22-30) mmol/L Anion Gap 1 mmol/L BUN 33 H (7-17) mg/dL Creatinine 1.57 H (0.52-1.04) mg/dL Est GFR (CKD-EPI)AfAm 43 (>60 ml/min/1.73 sqM) Est GFR (CKD-EPI)NonAf 37 (>60 ml/min/1.73 sqM) Glucose 72 L (74-99) mg/dL Calcium 8.4 (8.4-10.2) mg/dL Magnesium 1.8 (1.6-2.3) mg/dL Total Bilirubin 1.3 (0.2-1.3) mg/dL AST 46 H (14-36) U/L ALT 36 (9-52) U/L Alkaline Phosphatase 76 (38-126) U/L Total Protein 5.5 L (6.3-8.2) g/dL Albumin 2.2 L (3.5-5.0) g/dL Amylase 54 (30-110) U/L Lipase 226 (23-300) U/L Urine Color Urine Appearance (Clear) Urine pH (5.0-8.0) Ur Specific [place] (1.001-1.035) Urine Protein (Negative) Urine Glucose (UA) (Negative) Urine Ketones (Negative) Urine Blood (Negative) Urine Nitrite (Negative) Urine Bilirubin (Negative) Urine Urobilinogen (<2.0) mg/dL Ur Leukocyte Esterase (Negative) Urine RBC (0-5) /hpf Urine WBC (0-5) /hpf Ur Squamous Epith Cells (0-4) /hpf Hyaline Casts (0-2) /lpf Urine Mucus (None) /hpf 02/13/19 Range/Units 10:00 WBC (3.8-10.6) k/uL RBC (3.80-5.40) m/uL Hgb (11.4-16.0) gm/dL Hct (34.0-46.0) % MCV (80.0-100.0) fL MCH (25.0-35.0) pg MCHC (31.0-37.0) g/dL RDW (11.5-15.5) % Plt Count (150-450) k/uL Neutrophils % % Lymphocytes % % Monocytes % % Eosinophils % % Basophils % % Neutrophils # (1.3-7.7) k/uL Lymphocytes # (1.0-4.8) k/uL Monocytes # (0-1.0) k/uL Eosinophils # (0-0.7) k/uL Basophils # (0-0.2) k/uL Anisocytosis Macrocytosis PT (9.0-12.0) sec INR (<1.2) APTT (22.0-30.0) sec Sodium (137-145) mmol/L Potassium (3.5-5.1) mmol/L Chloride (98-107) mmol/L Carbon Dioxide (22-30) mmol/L Anion Gap mmol/L BUN (7-17) mg/dL Creatinine (0.52-1.04) mg/dL Est GFR (CKD-EPI)AfAm (>60 ml/min/1.73 sqM) Est GFR (CKD-EPI)NonAf (>60 ml/min/1.73 sqM) Glucose (74-99) mg/dL Calcium (8.4-10.2) mg/dL Magnesium (1.6-2.3) mg/dL Total Bilirubin (0.2-1.3) mg/dL AST (14-36) U/L ALT (9-52) U/L Alkaline Phosphatase (38-126) U/L Total Protein (6.3-8.2) g/dL Albumin (3.5-5.0) g/dL Amylase (30-110) U/L Lipase (23-300) U/L Urine Color Yellow Urine Appearance Clear (Clear) Urine pH 6.5 (5.0-8.0) Ur Specific [place] 1.015 (1.001-1.035) Urine Protein 3+ H (Negative) Urine Glucose (UA) Negative (Negative) Urine Ketones Negative (Negative) Urine Blood Moderate H (Negative) Urine Nitrite Negative (Negative) Urine Bilirubin Negative (Negative) Urine Urobilinogen <2.0 (<2.0) mg/dL Ur Leukocyte Esterase Negative (Negative) Urine RBC 163 H (0-5) /hpf Urine WBC 12 H (0-5) /hpf Ur Squamous Epith Cells 2 (0-4) /hpf Hyaline Casts 2 (0-2) /lpf Urine Mucus Rare H (None) /hpf Disposition Is patient prescribed a controlled substance at d/c from ED?: No Time of Disposition: 11:07 <Sofia Beard - Last Filed: 02/13/19 11:05> <Jason Keenan - Last Filed: 02/13/19 11:12> Clinical Impression: Hematuria, Chronic hepatitis C, Ascites Disposition: ADMITTED IP TO THIS HOSP Condition: Stable Referrals: Kel Mason MD [Primary Care Provider] - 1-2 days
[2019-02-13] MEDS ORDERED: SODIUM CHLORIDE 0.9% 1,000 ML IV STA (09:52)
[2019-02-13] MEDS ORDERED: SODIUM CHLORIDE 0.9% 500 ML 500 ML IV STA (09:52)
[2019-02-13] MEDS ORDERED: MORPHINE SULFATE 4 MG/ML SYRINGE IVP STA (10:07)
[2019-02-13 10:27] LABS: Anisocytosis Slight; Basophils % (A) 0 %; Eosinophils % (A) 0 %; HGB 11.4 gm/dL (11.4-16.0); Lymphocytes # (A) 2.7 k/uL (1.0-4.8); Lymphocytes % (A) 33 %; MCH 31.6 pg (25.0-35.0); MCHC 32.7 g/dL (31.0-37.0); MCV 96.8 fL (80.0-100.0); Macrocytosis Slight; Mean Platelet Volume 8.6; Monocytes # (A) 0.5 k/uL (0-1.0); Monocytes % (A) 7 %; Neutrophils # (A) 4.7 k/uL (1.3-7.7); Neutrophils % (A) 57 %; RBC 3.62 m/uL (3.80-5.40); RDW 16.7 % (11.5-15.5); WBC 8.1 k/uL (3.8-10.6)
[2019-02-13 10:29] LABS: Platelet Count 87 k/uL (150-450)
[2019-02-13 10:32] LABS: Appearance,Urine Clear (Clear); Bilirubin,Urine Negative (Negative); Blood,Urine Moderate (Negative); Color,Urine Yellow; Glucose,Urine (UA) Negative (Negative); Hyaline Casts,Urine 2 /lpf (0-2); Ketones,Urine Negative (Negative); Leukocyte Esterase,Urine Negative (Negative); Mucus,Urine Rare /hpf; Nitrite,Urine Negative (Negative); PH, Urine 6.5 (5.0-8.0); Protein,Urine 3+ (Negative); RBC,Urine 163 /hpf (0-5); Specific Gravity,Urine 1.015 (1.001-1.035); Squamous Epithelial Cell,Urine 2 /hpf (0-4); Urobilinogen,Urine <2.0 mg/dL (<2.0); WBC,Urine 12 /hpf (0-5)
[2019-02-13 10:33] LABS: INR 1.1 (<1.2); Partial Thromboplastin Time 25.8 sec (22.0-30.0); Prothrombin Time 11.6 sec (9.0-12.0)
[2019-02-13 10:42] LABS: Albumin 2.2 g/dL (3.5-5.0); Calcium 8.4 mg/dL (8.4-10.2); Magnesium 1.8 mg/dL (1.6-2.3); Potassium 3.8 mmol/L (3.5-5.1); Total Bilirubin 1.3 mg/dL (0.2-1.3); Total Protein 5.5 g/dL (6.3-8.2)
[2019-02-13] MEDS ORDERED: ONDANSETRON 4 MG/2 ML VIAL IVP PRN (11:08)
[2019-02-13] MEDS ORDERED: MORPHINE SULFATE 4 MG/ML SYRINGE IV PRN (11:08)
[2019-02-13] MEDS ORDERED: NALOXONE 0.4 MG/ML 1 ML VIAL IV PRN (11:08)
[2019-02-13] MEDS ORDERED: ALPRAZolam 0.25 MG TAB PO PRN (11:11)
--- NOTE | 2019-02-13 11:23 | XR ---
EXAMINATION TYPE: XR KUB DATE OF EXAM: 02/13/2019 COMPARISON: NONE HISTORY: Pain TECHNIQUE: One view abdominal series FINDINGS: The osseous structures are intact. The bowel gas pattern is nonspecific. Lung bases are clear. Arth ropathy of the hips. Degenerative change of the spine. There are few prominent small bowel loops in t he upper abdomen. IMPRESSION: 1. Nonspecific abdomen. Few prominent small bowel loops in the upper abdomen may been the basis of a n enteritis or ileus. Correlate clinically.
[2019-02-13] MEDS: SODIUM CHLORIDE 0.9% 1,000 ML IV SCH (11:36)
[2019-02-13] MEDS: HYDROmorphone 0.5 MG/0.5 ML SYRINGE IVP PRN ×3 (12:27→19:41)
[2019-02-13] MEDS ORDERED: hydrALAZINE HCL 20 MG/ML 1 ML VIAL IVP PRN (13:11)
--- NOTE | 2019-02-13 13:11 | P.HPIM ---
History of Present Illness H&P Date: 02/13/19 Chief Complaint: Abdominal ascites This is a 54-year-old female with a known past medical history of abdominal ascites with history of alcoholic liver cirrhosis and hepatitis C, chronic kidney disease, IgA nephropathy, hypertension, thrombocytopenia, portal hypertension and nicotine dependence. Patient presents the emergency room with complaints of worsening abdominal distention and shortness of breath over the last 2 weeks. She went to see Dr. Villavicencio her boiler engineer yesterday for follow-up on her abdominal ascites. Per patient the hydraulic plumber was unable to schedule her for a paracentesis. Patient then came into the ER due to her symptoms and needing a paracentesis. GI service has been consulted. Interventional radiology has been consulted for paracentesis. Her last paracentesis was about a month ago during a previous hospitalization and she had 5.5 L removed at that time. Patient has been reporting some nausea. No vomiting. Denies any chest pain, fever or chills or sweats. She does report feeling a little clammy yesterday. Denies any burning with urination. She does report noticing some blood on the tissue paper when she wipes. The urinalysis did reveal a moderate amount of blood and 3+ proteins. Patient has a known history of hemorrhoids. She is unable to decipher exactly where the bleeding is coming from. Pelvic ultrasound has been ordered to rule out vaginal bleeding. She doesn't feeling discomfort where the hemorrhoid is located. Hemoglobin is stable at 11.4. She denies any burning with urination or any urinary frequency. Denies any bowel movement changes. Review of Systems Please refer to HPI otherwise unremarkable Past Medical History Past Medical History: COPD, Hypertension, Liver Disease, Renal Disease Additional Past Medical History / Comment(s): lower back pain from previous injury, Hep C, liver cirrhosis, decreased kidney function, frequent diarrhea, fluid retention in abdomen History of Any Multi-Drug Resistant Organisms: None Reported Past Surgical History: Tubal Ligation Past Anesthesia/Blood Transfusion Reactions: No Reported Reaction Additional Past Anesthesia/Blood Transfusion Reaction / Comment(s): claustrophobia Past Psychological History: Anxiety, Depression Smoking Status: Current every day smoker Past Alcohol Use History: Abuse Past Drug Use History: None Reported - Past Family History Father History Unknown: Yes Family Medical History: Cancer Additional Family Medical History / Comment(s): unk type Mother History Unknown: Yes Family Medical History: AFIB, Congestive Heart Failure (CHF), Myocardial Infarction ([place]), Seizure Disorder Medications and Allergies Home Medications Medication Instructions Recorded Confirmed Type ALPRAZolam [Xanax] 0.25 mg PO BID PRN 09/13/18 02/13/19 History Metoprolol Tartrate 25 mg PO DAILY 09/13/18 02/13/19 History Furosemide [Lasix] 40 mg PO DAILY 11/21/18 02/13/19 History HYDROcodone/APAP 10-325MG [[place] 1 tab PO BID 11/21/18 02/13/19 History 10-325] Spironolactone [Aldactone] 25 mg PO DAILY 11/21/18 02/13/19 History Allopurinol [Zyloprim] 100 mg PO DAILY 01/12/19 02/13/19 History Pantoprazole Sodium [Protonix] 40 mg PO DAILY 01/12/19 02/13/19 History Folic Acid 1 mg PO DAILY 02/13/19 02/13/19 History predniSONE 10 mg PO DAILY 02/13/19 02/13/19 History Allergies Allergy/AdvReac Type Severity Reaction Status Date / Time bupropion [From Wellbutrin] AdvReac seizure Verified 02/13/19 09:51 Physical Exam Vitals: Vital Signs Temp Pulse Resp BP Pulse Ox 02/13/19 12:03 97.6 F 53 L 18 173/88 100 02/13/19 11:00 172/93 99 02/13/19 10:30 182/96 98 02/13/19 10:07 182/96 99 02/13/19 09:16 97.8 F 65 20 178/73 100 Intake and Output 02/12/19 02/13/19 02/13/19 22:59 06:59 14:59 Other: Weight 112.491 kg Head normocephalic Neck supple Lungs clear to auscultation bilaterally no wheezing or crackles Heart regular rate and rhythm S1-S2, no rub or gallop Abdomen is soft and distended positive fluid wave Extremities no edema Neuro alert and orientated to 3 Results CBC & Chem 7: 02/13/19 10:00 02/13/19 10:00 Labs: Abnormal Lab Results - Last 24 Hours (Table) 02/13/19 02/13/19 02/13/19 Range/Units 10:00 10:00 10:00 RBC 3.62 L (3.80-5.40) m/uL RDW 16.7 H (11.5-15.5) % Plt Count 87 L (150-450) k/uL Chloride 114 H (98-107) mmol/L BUN 33 H (7-17) mg/dL Creatinine 1.57 H (0.52-1.04) mg/dL Glucose 72 L (74-99) mg/dL AST 46 H (14-36) U/L Total Protein 5.5 L (6.3-8.2) g/dL Albumin 2.2 L (3.5-5.0) g/dL Urine Protein 3+ H (Negative) Urine Blood Moderate H (Negative) Urine RBC 163 H (0-5) /hpf Urine WBC 12 H (0-5) /hpf Urine Mucus Rare H (None) /hpf Assessment and Plan Assessment: 1. Shortness of breath and abdominal distention likely secondary to her abdominal ascites. Consult GI service and interventional radiology service for paracentesis 2. Ascites with history of alcohol liver cirrhosis and hepatitis C 3. Portal hypertension 4. Chronic kidney disease stage III 5. Anemia of chronic kidney disease 6. IgA nephropathy followed by nephrology and on prednisone 7. Thrombocytopenia likely related to her liver disease 8. Essential hypertension with elevated blood pressures on admission. Fluids have been hep-locked. We'll add IV hydralazine as needed 9. Generalized anxiety disorder 10. Nicotine dependence: Add nicotine patch. Discussed smoking cessation for greater than 3 minutes 11. Moderate amount of blood noted in the urine: Unclear if bleeding source is vaginal, rectal or from urological source. Pelvic ultrasound has been ordered. Will have patient follow up with ENGINEERING LECTURER outpatient GI prophylaxis Protonix and DVT prophylaxis SCDs Time with Patient: Greater than 30 (Greater than 50% of the total time spent in counseling and coordination of care.I performed an examination of the patient and discussed their management with the physician Button Reclaimer. I have reviewed the Physician Button Reclaimer's notes and agree with the documented findings and plan of care)
[2019-02-13 13:42] VITALS: BMI 43.9
[2019-02-13] MEDS ORDERED: INFLUENZA VACCINE (6 MOS+) 60 MCG/0.5 ML SYRINGE IM ONE (13:44)
--- NOTE | 2019-02-13 16:47 | US ---
EXAMINATION TYPE: US paracentesis abd w/image DATE OF EXAM: 02/13/2019 COMPARISON: NONE HISTORY: Ascites. PROCEDURE: Maximal barrier technique was utilized. The skin overlying a suitable pocket of fluid was localized with ultrasound and the overlying skin was prepped and draped. Ultrasound was utilized with sterile technique. Lidocaine was used for local anesthesia and a skin sary made with a scalpel. Catheter was advanced under direct ultrasound guidance into a suitable pocket of fluid and approximately 8 liters of serous fluid were removed. Catheter was withdrawn and hemostasis achieved. There is no immediate complication; the patient is discharged in stable condition. IMPRESSION: STATUS POST ULTRASOUND GUIDED PARACENTESIS FOR PALLIATION OF ASCITES. THIS PROCEDURE WA S PERFORMED BY THE UNDERSIGNED.
--- NOTE | 2019-02-13 20:20 | US ---
EXAMINATION TYPE: US pelvic complete DATE OF EXAM: 02/13/2019 COMPARISON: NONE CLINICAL HISTORY: possible vaginal bleeding. Bleeding this morning in urine. No period x 5 years ago. TECHNIQUE: Transabdominal (TA). Transabdominal sonographic images of the pelvis were acquired. Date of LMP: 5 years ago. EXAM MEASUREMENTS: Uterus: 10.3 x 4.0 x 4.8 cm Endometrial Stripe: 0.6 cm Right Ovary: 2.8 x 2.0 x 2.4 cm Left Ovary: 2.4 x 2.0 x 1.9 cm 1. Uterus: Anteverted wnl 2. Endometrium: wnl 3. Right Ovary: wnl 4. Left Ovary: wnl 5. Bilateral Adnexa: wnl 6. Posterior cul-de-sac: wnl IMPRESSION: Negative transabdominal pelvic sonogram. No adnexal mass or free fluid.
[2019-02-13] MEDS ORDERED: HYDROcodone/APAP 10-325MG 1 EACH TAB PO SCH (21:00)
[2019-02-13] MEDS: HYDROcodone/APAP 10-325MG 1 EACH TAB PO SCH (23:09)
[2019-02-14] MEDS: HYDROmorphone 0.5 MG/0.5 ML SYRINGE IVP PRN ×4 (03:12→12:57)
[2019-02-14] MEDS: HYDROcodone/APAP 10-325MG 1 EACH TAB PO SCH (07:05)
[2019-02-14] MEDS ORDERED: PANTOPRAZOLE 40 MG TABLET PO SCH (07:30)
[2019-02-14] MEDS ORDERED: FOLIC ACID 1 MG TAB PO SCH (09:00)
[2019-02-14] MEDS ORDERED: PANTOPRAZOLE 40 MG/10 ML VIAL IV SCH (09:00)
[2019-02-14] MEDS ORDERED: predniSONE 10 MG TAB PO SCH (09:00)
[2019-02-14] MEDS ORDERED: ALLOPURINOL 100 MG TAB PO SCH (09:00)
[2019-02-14] MEDS ORDERED: FUROSEMIDE 40 MG TAB PO SCH (09:00)
[2019-02-14] MEDS ORDERED: SPIRONOLACTONE 25 MG TAB PO SCH (09:00)
[2019-02-14] MEDS ORDERED: METOPROLOL TARTRATE 25 MG TAB PO SCH (09:00)
[2019-02-14 09:29] LABS: Anisocytosis Slight; Basophils % (A) 0 %; Eosinophils # (A) 0.1 k/uL (0-0.7); Eosinophils % (A) 1 %; HCT 36.8 % (34.0-46.0); HGB 11.6 gm/dL (11.4-16.0); Lymphocytes % (A) 28 %; MCH 30.7 pg (25.0-35.0); MCHC 31.5 g/dL (31.0-37.0); MCV 97.5 fL (80.0-100.0); Macrocytosis Slight; Mean Platelet Volume 8.1; Monocytes # (A) 0.8 k/uL (0-1.0); Monocytes % (A) 7 %; Neutrophils # (A) 6.7 k/uL (1.3-7.7); Neutrophils % (A) 63 %; Platelet Count 114 k/uL (150-450); RBC 3.78 m/uL (3.80-5.40); RDW 16.5 % (11.5-15.5); WBC 10.8 k/uL (3.8-10.6)
[2019-02-14 09:39] LABS: Albumin 2.3 g/dL (3.5-5.0); Calcium 8.3 mg/dL (8.4-10.2); Potassium 4.4 mmol/L (3.5-5.1); Total Bilirubin 1.1 mg/dL (0.2-1.3); Total Protein 5.7 g/dL (6.3-8.2)
--- NOTE | 2019-02-14 10:45 | P.PN ---
Subjective Progress Note Date: 02/14/19 This is a 54-year-old female with a known past medical history of abdominal ascites with history of alcoholic liver cirrhosis and hepatitis C, chronic kidney disease, IgA nephropathy, hypertension, thrombocytopenia, portal hypertension and nicotine dependence. Patient presents the emergency room with complaints of worsening abdominal distention and shortness of breath over the last 2 weeks. She went to see Dr. Villavicencio her transfer table operator yesterday for follow-up on her abdominal ascites. Per patient the center receptionist was unable to schedule her for a paracentesis. Patient then came into the ER due to her symptoms and needing a paracentesis. GI service has been consulted. Interventional radiology has been consulted for paracentesis. Her last paracentesis was about a month ago during a previous hospitalization and she had 5.5 L removed at that time. Patient has been reporting some nausea. No vomiting. Denies any chest pain, fever or chills or sweats. She does report feeling a little clammy yesterday. Denies any burning with urination. She does report noticing some blood on the tissue paper when she wipes. The urinalysis did reveal a moderate amount of blood and 3+ proteins. Patient has a known history of hemorrhoids. She is unable to decipher exactly where the bleeding is coming from. Pelvic ultrasound has been ordered to rule out vaginal bleeding. She doesn't feeling discomfort where the hemorrhoid is located. Hemoglobin is stable at 11.4. She denies any burning with urination or any urinary frequency. Denies any bowel movement changes. On 02/14/2018 patient is alert and oriented 3. Patient had 8 L removed during paracentesis. At this time patient is still complaining of mild abdominal discomfort but states improvement post paracentesis. At this time patient denies chest pain or shortness breath. Patient denies any nausea vomiting or diarrhea. Patient denies any urinary burning or frequency. Objective - Vital Signs Vital signs: Vital Signs Temp 98.2 F 02/14/19 05:15 Pulse 67 02/14/19 05:15 Resp 20 02/14/19 05:15 BP 155/89 02/14/19 05:15 Pulse Ox 98 02/14/19 05:15 Intake & Output 02/13/19 02/14/19 02/14/19 18:59 06:59 18:59 Intake Total 500 Balance 500 Weight 112.491 kg Intake: Oral 500 Other: Voiding Method Toilet Toilet Toilet # Voids 1 # Bowel Movements 0 - Exam Head normocephalic Neck supple Lungs clear to auscultation bilaterally no wheezing or crackles Heart regular rate and rhythm S1-S2, no rub or gallop Abdomen is soft and distended positive fluid wave Extremities no edema Neuro alert and orientated to 3 - Labs CBC & Chem 7: 02/14/19 08:54 02/14/19 08:54 Labs: Abnormal Lab Results - Last 24 Hours (Table) 02/13/19 02/14/19 02/14/19 Range/Units 10:00 08:54 08:54 WBC 10.8 H (3.8-10.6) k/uL RBC 3.78 L (3.80-5.40) m/uL RDW 16.5 H (11.5-15.5) % Plt Count 114 L (150-450) k/uL Chloride 114 H 113 H (98-107) mmol/L BUN 33 H 31 H (7-17) mg/dL Creatinine 1.57 H 1.56 H (0.52-1.04) mg/dL Glucose 72 L 101 H (74-99) mg/dL Calcium 8.3 L (8.4-10.2) mg/dL AST 46 H 51 H (14-36) U/L Total Protein 5.5 L 5.7 L (6.3-8.2) g/dL Albumin 2.2 L 2.3 L (3.5-5.0) g/dL Assessment and Plan Assessment: 1. Shortness of breath and abdominal distention likely secondary to her abdominal ascites. Consult GI service and interventional radiology service for paracentesis. Status post paracentesis 8 L fluid removed. Awaiting GI consult. 2. Ascites with history of alcohol liver cirrhosis and hepatitis C 3. Portal hypertension 4. Chronic kidney disease stage III 5. Anemia of chronic kidney disease 6. IgA nephropathy followed by nephrology and on prednisone 7. Thrombocytopenia likely related to her liver disease 8. Essential hypertension with elevated blood pressures on admission. Fluids have been hep-locked. We'll add IV hydralazine as needed 9. Generalized anxiety disorder 10. Nicotine dependence: Add nicotine patch. Discussed smoking cessation for greater than 3 minutes 11. Moderate amount of blood noted in the urine: Unclear if bleeding source is vaginal, rectal or from urological source. Pelvic ultrasound completed showing negative transabdominal pelvic sonogram no adnexal mass or free fluid. Will have patient follow up with CHORAL DIRECTOR outpatient 12. Leukocytosis likely secondary to steroids. Patient denies any acute symptoms. Will continue to monitor GI prophylaxis Protonix and DVT prophylaxis SCDs I performed an examination of the patient and discussed their management with the Nurse Practitioner. I have reviewed the Nurse Practitioner's notes and agree with the documented findings and plan of care
[2019-02-14] MEDS: SODIUM CHLORIDE 0.9% 1,000 ML IV SCH (11:01)
[2019-02-14 13:28] VITALS: BP 133/84; PULSE 62; RESP 16; TEMP 97.9
--- NOTE | 2019-02-14 13:28 | P.CONS ---
History of Present Illness - Reason for Consult Consult date: 02/14/19 Ascites Requesting physician: Kel Mason - Chief Complaint Ascites - History of Present Illness 54-year-old female with a history of known alcohol cirrhosis portal hypertension hepatitis C chronic ascites. Patient admitted with increased abdominal girth ascites unable to pursue an outpatient paracentesis. Paracentesis completed yesterday 8 L removed. Feels better. Afebrile. White count 10.8. Hemoglobin 10.6. Platelet 114. INR 1.1. LFTs unremarkable. Lipase 226. AFP 6; October 2018. Review of Systems RConstitutional: Denies fever, chills, sweats, weight gain, or loss. HEENT: Negative for migraines, blurred vision or loss, earaches, drainage, tinnitus, oral mucosal lesions, dysphagia, or odynophagia. CARDIAC: Negative for chest pain, arrhythmias, or palpitation. RESPIRATORY: Negative for shortness of breath, hemoptysis, cough, or sputum production. GI: See HPI for pertinent findings. : Negative for hematuria, urgency, frequency, polyuria, or dysuria. GYNc: Denies possibility of . Negative vaginal discharge. MUSCULOSKELETAL: Negative for muscle aches, swelling, arthritis, and arthralgi as. NEUROLOGIC: Negative for stroke or TIA. ENDOCRINE: Negative for thyroid problems. SKIN: Negative for rash or itching. PSYCHIATRIC: Negative history for depression and anxiety Past Medical History Past Medical History: COPD, Hypertension, Liver Disease, Renal Disease Additional Past Medical History / Comment(s): Hep C, alcoholic liver cirrhosis, ascities, CKD stage IV, anemia, frequent diarrhea, low back pain from an injury. History of Any Multi-Drug Resistant Organisms: None Reported Past Surgical History: Tubal Ligation Additional Past Surgical History / Comment(s): Paracentesis's Past Anesthesia/Blood Transfusion Reactions: No Reported Reaction Additional Past Anesthesia/Blood Transfusion Reaction / Comm: claustrophobia Smoking Status: Current every day smoker - Past Family History Father History Unknown: Yes Family Medical History: Cancer Additional Family Medical History / Comment(s): Unk type of cancer. Father is . Mother History Unknown: Yes Family Medical History: AFIB, Congestive Heart Failure (CHF), Myocardial Infarction ([place]), Seizure Disorder Additional Family Medical History / Comment(s): Mother had a IN at the age of 52 yrs. She is . Medications and Allergies Home Medications Medication Instructions Recorded Confirmed Type ALPRAZolam [Xanax] 0.25 mg PO BID PRN 09/13/18 02/13/19 History Metoprolol Tartrate 25 mg PO DAILY 09/13/18 02/13/19 History Furosemide [Lasix] 40 mg PO DAILY 11/21/18 02/13/19 History HYDROcodone/APAP 10-325MG [[place] 1 tab PO BID 11/21/18 02/13/19 History 10-325] Spironolactone [Aldactone] 25 mg PO DAILY 11/21/18 02/13/19 History Allopurinol [Zyloprim] 100 mg PO DAILY 01/12/19 02/13/19 History Pantoprazole Sodium [Protonix] 40 mg PO DAILY 01/12/19 02/13/19 History Folic Acid 1 mg PO DAILY 02/13/19 02/13/19 History predniSONE 10 mg PO DAILY 02/13/19 02/13/19 History Allergies Allergy/AdvReac Type Severity Reaction Status Date / Time bupropion [From Wellbutrin] AdvReac seizure Verified 02/13/19 09:51 Physical Exam Vitals: Vital Signs Temp Pulse Pulse Resp BP BP BP 02/14/19 05:15 98.2 F 67 20 155/89 02/14/19 00:00 76 20 02/13/19 21:45 97.9 F 76 20 179/83 02/13/19 15:59 70 16 156/82 02/13/19 15:31 75 18 157/83 02/13/19 15:17 62 18 186/84 02/13/19 14:51 52 L 18 160/83 02/13/19 12:30 97.9 F 51 L 18 172/85 02/13/19 12:03 97.6 F 53 L 18 173/88 02/13/19 11:00 172/93 Pulse Ox 02/14/19 05:15 98 02/14/19 00:00 02/13/19 21:45 99 02/13/19 15:59 100 02/13/19 15:31 100 02/13/19 15:17 100 02/13/19 14:51 100 02/13/19 12:30 100 02/13/19 12:03 100 02/13/19 11:00 99 Intake and Output 02/13/19 02/14/19 02/14/19 22:59 06:59 14:59 Intake Total 400 100 Balance 400 100 Intake: Oral 400 100 Other: Voiding Method Toilet Toilet Toilet # Voids 1 1 # Bowel Movements 0 0 General appearance: The patient is alert, oriented, in no acute distress. HET: Head is normocephalic and atraumatic. Pupils are equal and reactive. Oropharynx is clear without lesions. Neck: Supple without lymphadenopathy. Trachea midline. Heart: S1 S2. Regular rate and rhythm. Lungs: No crackles or wheezes are heard. Abdomen: Soft, nontender, nondistended with bowel sounds. No peritoneal signs. No palpable organomegaly or masses. Extremities: Normal skin color and turgor. No cyanosis, rash, ulceration, clubbing, or edema. Radial and pedal pulses are 2/4 bilaterally. Neurological: No focal deficits. Strength and sensation are grossly intact. Results CBC & Chem 7: 02/14/19 08:54 02/14/19 08:54 Labs: Abnormal Lab Results - Last 24 Hours (Table) 02/14/19 02/14/19 Range/Units 08:54 08:54 WBC 10.8 H (3.8-10.6) k/uL RBC 3.78 L (3.80-5.40) m/uL RDW 16.5 H (11.5-15.5) % Plt Count 114 L (150-450) k/uL Chloride 113 H (98-107) mmol/L BUN 31 H (7-17) mg/dL Creatinine 1.56 H (0.52-1.04) mg/dL Glucose 101 H (74-99) mg/dL Calcium 8.3 L (8.4-10.2) mg/dL AST 51 H (14-36) U/L Total Protein 5.7 L (6.3-8.2) g/dL Albumin 2.3 L (3.5-5.0) g/dL Assessment and Plan (1) Ascites Narrative/Plan: Status post paracentesis Current Visit: Yes Status: Acute Code(s): R18.8 - OTHER ASCITES SNOMED Code(s): 716170665 (2) Portal hypertension Current Visit: Yes Status: Acute Code(s): K76.6 - PORTAL HYPERTENSION SN OMED Code(s): 49164826 (3) Alcoholic liver disease Current Visit: No Status: Acute Code(s): K70.9 - ALCOHOLIC LIVER DISEASE, UNSPECIFIED SNOMED Code(s): 53812999 (4) Cirrhosis Current Visit: No Status: Acute Code(s): K74.60 - UNSPECIFIED CIRRHOSIS OF LIVER SNOMED Code(s): 04631543 (5) History of ETOH abuse Current Visit: No Status: Acute Code(s): Z87.898 - PERSONAL HISTORY OF OTHER SPECIFIED CONDITIONS SNOMED Code(s): 140739185 (6) Chronic hepatitis C Current Visit: Yes Status: Acute Code(s): B18.2 - CHRONIC VIRAL HEPATITIS C SNOMED Code(s): 913456434 Plan: 1. Low-salt diet. 2. Discharge per medicine. Lasix 40 mg daily. Aldactone 25 mg daily. Patient was advised to call GI office abdominal girth increases to discuss outpatient paracentesis. Awaiting insurance approval for hepatitis C treatment patient will notify office when she receives insurance approval. Thank you for this kind referral and the opportunity to participate in the care of your patient. This consultation was discussed with Dr. العلي. The impression and plan of care have been directed as dictated.
--- NOTE | 2019-02-14 14:16 | P.DS ---
Providers Date of admission: 02/13/19 11:10 Expected date of discharge: 02/14/19 Attending physician: Kel Mason Consults: 02/13/19 11:10 Consult Physician Urgent Consulting Provider: Livia Mcdaniel Consult Reason/Comments: ascities Do you want consulting provider notified?: Yes Primary care physician: Kel [facility] Course: Discharge diagnosis 1. Shortness of breath and abdominal distention likely secondary to her abdominal ascites. Consult GI service and interventional radiology service for paracentesis. Status post paracentesis 8 L fluid removed. Per GI services are pending. Low salt diet. Patient be discharged home. Resume grams daily and Aldactone 25 daily. Patient advised per GI services to call GI office if abdominal girth increases discuss outpatient paracentesis. 2. Ascites with history of alcohol liver cirrhosis and hepatitis C 3. Portal hypertension 4. Chronic kidney disease stage III 5. Anemia of chronic kidney disease 6. IgA nephropathy followed by nephrology and on prednisone 7. Thrombocytopenia likely related to her liver disease 8. Essential hypertension with elevated blood pressures on admission. Fluids have been hep-locked. We'll add IV hydralazine as needed 9. Generalized anxiety disorder 10. Nicotine dependence: Add nicotine patch. Discussed smoking cessation for greater than 3 minutes 11. Moderate amount of blood noted in the urine: Unclear if bleeding source is vaginal, rectal or from urological source. Pelvic ultrasound completed showing negative transabdominal pelvic sonogram no adnexal mass or free fluid. Will have patient follow up with [employer] outpatient 12. Leukocytosis likely secondary to steroids. Patient denies any acute symptoms. Will continue to monitor Hospital course This is a 54-year-old female with a known past medical history of abdominal ascites with history of alcoholic liver cirrhosis and hepatitis C, chronic k idney disease, IgA nephropathy, hypertension, thrombocytopenia, portal hypertension and nicotine dependence. Patient presents the emergency room with complaints of worsening abdominal distention and shortness of breath over the last 2 weeks. She went to see Dr. Villavicencio her journeyman powerhouse operator yesterday for follow-up on her abdominal ascites. Per patient the athletic gear custodian was unable to schedule her for a paracentesis. Patient then came into the ER due to her symptoms and needing a paracentesis. GI service has been consulted. Interventional radiology has been consulted for paracentesis. Her last paracentesis was about a month ago during a previous hospitalization and she had 5.5 L removed at that time. Patient has been reporting some nausea. No vomiting. Denies any chest pain, fever or chills or sweats. She does report feeling a little clammy yesterday. Denies any burning with urination. She does report noticing some blood on the tissue paper when she wipes. The urinalysis did reveal a moderate amount of blood and 3+ proteins. Patient has a known history of hemorrhoids. She is unable to decipher exactly where the bleeding is coming from. Pelvic ultrasound has been ordered to rule out vaginal bleeding. She doesn't feeling discomfort where the hemorrhoid is located. Hemoglobin is stable at 11.4. She denies any burning with urination or any urinary frequency. Denies any bowel movement changes. On 02/14/2018 patient is alert and oriented 3. Patient had 8 L removed during paracentesis. At this time patient is still complaining of mild abdominal discomfort but states improvement post paracentesis. At this time patient denies chest pain or shortness breath. Patient denies any nausea vomiting or diarrhea. Patient denies any urinary burning or frequency. Patient has been cleared for discharge and GI services. Patient followed closely with PCP and GI services. Patient also advised to follow-up with COSTUMING SUPERVISOR for questionable vaginal bleeding. I performed an examination of the patient and discussed their management with the Nurse Practitioner. I have reviewed the Nurse Practitioner's notes and agree with the documented findings and plan of care Patient Condition at Discharge: Stable Plan - Discharge Summary Discharge Rx Participant: No New Discharge Prescriptions: Continue Metoprolol Tartrate 25 mg PO DAILY ALPRAZolam [Xanax] 0.25 mg PO BID PRN PRN Reason: Anxiety Spironolactone [Aldactone] 25 mg PO DAILY HYDROcodone/APAP 10-325MG [[place] 10-325] 1 tab PO BID Furosemide [Lasix] 40 mg PO DAILY Pantoprazole Sodium [Protonix] 40 mg PO DAILY Allopurinol [Zyloprim] 100 mg PO DAILY predniSONE 10 mg PO DAILY Folic Acid 1 mg PO DAILY Discharge Medication List ALPRAZolam [Xanax] 0.25 mg PO BID PRN 09/13/18 [History] Metoprolol Tartrate 25 mg PO DAILY 09/13/18 [History] Furosemide [Lasix] 40 mg PO DAILY 11/21/18 [History] HYDROcodone/APAP 10-325MG [[place] 10-325] 1 tab PO BID 11/21/18 [History] Spironolactone [Aldactone] 25 mg PO DAILY 11/21/18 [History] Allopurinol [Zyloprim] 100 mg PO DAILY 01/12/19 [History] Pantoprazole Sodium [Protonix] 40 mg PO DAILY 01/12/19 [History] Folic Acid 1 mg PO DAILY 02/13/19 [History] predniSONE 10 mg PO DAILY 02/13/19 [History] Follow up Appointment(s)/Referral(s): Livia Mcdaniel MD [STAFF PHYSICIAN] - 05/24/19 12:15 pm Kel Mason MD [Primary Care Provider] - 1-2 days Discharge Disposition: HOME SELF-CARE
== END 2019-02-14 15:03 | disposition home or self-care (01) ==
LOC: EC 09:14 → 4MS4W 11:10
PROVIDERS: ADMIT Internal Medicine; ATTEND Internal Medicine
DX: R06.02 Shortness of breath (principal); R14.0 Abdominal distension (gaseous); K70.31 Alcoholic cirrhosis of liver with ascites; B18.2 Chronic viral hepatitis C; K76.6 Portal hypertension; I12.9 Hypertensive chronic kidney disease with stage 1 through stage 4 chronic kidney disease, or unspecified chronic kidney disease; N18.3 Chronic kidney disease, stage 3 (moderate); D63.1 Anemia in chronic kidney disease; N18.4 Chronic kidney disease, stage 4 (severe); F41.1 Generalized anxiety disorder; D69.6 Thrombocytopenia, unspecified; F17.200 Nicotine dependence, unspecified, uncomplicated; D72.829 Elevated white blood cell count, unspecified; K64.9 Unspecified hemorrhoids; J44.9 Chronic obstructive pulmonary disease, unspecified; G89.29 Other chronic pain; M54.5 Low back pain; F40.240 Claustrophobia; F32.9 Major depressive disorder, single episode, unspecified; Z79.899 Other long term (current) drug therapy; Z79.891 Long term (current) use of opiate analgesic; Z88.8 Allergy status to other drugs, medicaments and biological substances; Z82.49 Family history of ischemic heart disease and other diseases of the circulatory system; Z80.9 Family history of malignant neoplasm, unspecified; Z82.0 Family history of epilepsy and other diseases of the nervous system; Z23 Encounter for immunization
CPT/HCPCS: 96376 ×2; 96375 ×2; 96374; 99285; 36415; 80053 ×2; 82150; 83690; 83735; 85025 ×2; 85610; 85730; 81001; 74018; 76856; 49083; 90686; G0378 ×2; G0008; J2270; J0360; J7512; C9113; J1170 ×2

== ENCOUNTER 2019-02-27 09:30 | Emergency (ER) | payer OTHER ==
[2019-02-27 09:34] VITALS: RESP 16
[2019-02-27] MEDS ORDERED: DIPH,PERTUS(ACELL)TETVAC-LF 0.5 ML VIAL IM ONE (09:35)
[2019-02-27] MEDS ORDERED: LIDOCAINE 1% INJ 10MG/ML (20 ML MDV) SQ ONE (09:48)
--- NOTE | 2019-02-27 09:49 | ED ---
Wound/Laceration HPI - General Chief Complaint: Wound/Laceration Stated Complaint: RT HAND INJURY Time Seen by Provider: 02/27/19 09:35 Source: patient, RN notes reviewed, old records reviewed Mode of arrival: ambulatory Limitations: no limitations - History of Present Illness Initial Comments: Patient is a 34-year-old female who cut her right proximal thumb while using a can tire builder yesterday morning at approximately 24 hours prior to arrival. Patient states that she noticed a gaping wound, I felt that she may need stitches at this time. Patient states that the bleeding was well controlled. However Patient states that when she moves her thumb bleeding will sometimes recur. Patient states that she has full range of motion of the thumb. - Related Data Home Medications Medication Instructions Recorded Confirmed ALPRAZolam [Xanax] 0.25 mg PO BID PRN 09/13/18 02/27/19 Metoprolol Tartrate 25 mg PO DAILY 09/13/18 02/27/19 Furosemide [Lasix] 40 mg PO DAILY 11/21/18 02/27/19 HYDROcodone/APAP 10-325MG [[place] 1 tab PO BID 11/21/18 02/27/19 10-325] Spironolactone [Aldactone] 25 mg PO DAILY 11/21/18 02/27/19 Allopurinol [Zyloprim] 100 mg PO DAILY 01/12/19 02/27/19 Pantoprazole Sodium [Protonix] 40 mg PO DAILY 01/12/19 02/27/19 Folic Acid 1 mg PO DAILY 02/13/19 02/27/19 predniSONE 10 mg PO DAILY 02/13/19 02/27/19 Previous Rx's Medication Instructions Recorded Cephalexin [Keflex] 500 mg PO Q6HR 3 Days #12 cap 02/27/19 Allergies Allergy/AdvReac Type Severity Reaction Status Date / Time bupropion [From Wellbutrin] AdvReac seizure Verified 02/27/19 09:57 Review of Systems ROS Statement: Those systems with pertinent positive or pertinent negative responses have been documented in the HPI. ROS Other: All systems not noted in ROS Statement are negative. Past Medical History Past Medical History: COPD, Hypertension, Liver Disease, Renal Disease Additional Past Medical History / Comment(s): Hep C, alcoholic liver cirrhosis, ascities, CKD stage IV, anemia, frequent diarrhea, low back pain from an injury. History of Any Multi-Drug Resistant Organisms: None Reported Past Surgical History: Tubal Ligation Additional Past Surgical History / Comment(s): Paracentesis's Past Anesthesia/Blood Transfusion Reactions: No Reported Reaction Additional Past Anesthesia/Blood Transfusion Reaction / Comment(s): claustrophobia Past Psychological History: Anxiety, Depression Smoking Status: Current every day smoker Past Alcohol Use History: None Reported Past Drug Use History: None Reported - Past Family History Father History Unknown: Yes Family Medical History: Cancer Additional Family Medical History / Comment(s): Unk type of cancer. Father is . Mother History Unknown: Yes Family Medical History: AFIB, Congestive Heart Failure (CHF), Myocardial Infarction ([place]), Seizure Disorder Additional Family Medical History / Comment(s): Mother had a PR at the age of 52 yrs. She is . General Exam - General Exam Comments Initial Comments: 54-year-old female. Alert and oriented. No distress. Limitations: no limitations General appearance: alert, in no apparent distress Head exam: Present: atraumatic, normocephalic, normal inspection Eye exam: Present: normal appearance, PERRL, EOMI. Absent: scleral icterus, conjunctival injection, periorbital swelling ENT exam: Present: normal exam, mucous membranes moist Neck exam: Present: normal inspection. Absent: tenderness, meningismus, lymphadenopathy Respiratory exam: Present: normal lung sounds bilaterally. Absent: respiratory distress, wheezes, rales, rhonchi, stridor Cardiovascular Exam: Present: regular rate, normal rhythm, normal heart sounds. Absent: systolic murmur, diastolic murmur, rubs, gallop, clicks GI/Abdominal exam: Present: soft, normal bowel sounds. Absent: distended, tenderness, guarding, rebound, rigid Extremities exam: Present: normal inspection, full ROM, normal capillary refill, other (Patient has a 3 cm gapping laceration over the right proximal PIP.). Absent: tenderness, pedal edema, joint swelling, calf tenderness Back exam: Present: normal inspection Neurological exam: Present: alert Course Vital Signs 02/27/19 09:31 Temperature 97.4 F L Pulse Rate 75 Respiratory 16 Rate Blood Pressure 163/93 O2 Sat by Pulse 99 Oximetry Procedures - Laceration Laceration #1 Site: other (right proximal thumb) Size (cm): 3 Description: linear Depth: simple, single layer Anesthetic Used: lidocaine 1% Anesthesia Technique: local infiltration Amount (mls): 3 Pre-repair: wound explored, irrigated extensively Type of Sutures: nylon Size of Sutures: 5-0 Number of Sutures: 3 Patient Tolerated Procedure: well, no complications Medical Decision Making - Medical Decision Making 54-year-old female presents today for laceration over her right thumb approximately 24 hours ago cutting it on a can tire builder. Patient reports that the wound is near the joint and she keeps opening it this up and it rebleeds. Patient's wound was inspected, sparsely 3 cm, fairly irrigated with saline and iodine. Patient's wound was well proximal pain with 3 sutures. She has full range motion of thumb, the laceration is multiple superficial. Patient has been advised up with the Patient on antibiotics for concern for the slightly delayed closure. I discussed monitoring for infection. All questions answered. Disposition Clinical Impression: Thumb laceration Disposition: HOME SELF-CARE Condition: Good Instructions (If sedation given, give patient instructions): Laceration (ED) Additional Instructions: Patient has a close follow-up with primary care physician. Take medications as prescribed. Monitor the thumb if there is any signs of redness swelling or drainage return for recheck. Please return to the emergency room in 8-10 days to have sutures removed. Please leave wound covered for the first 24-48 hours and then leave open to air after that time. Please use clean soap and water to clean the suture area to prevent scabbing over the top of your sutures. Please watch for any signs of infection which may include but not limited to increased pain, swelling, redness, fever or chills. Please return to the emergency room if any signs of infection do occur. Please return to the emergency room for any other concerns or complications. Prescriptions: Cephalexin [Keflex] 500 mg PO Q6HR 3 Days #12 cap Is patient prescribed a controlled substance at d/c from ED?: No Referrals: Kel Mason MD [Primary Care Provider] - 1-2 days Time of Disposition: 10:40
[2019-02-27 10:51] VITALS: BP 169/98; PULSE 69; TEMP 97
== END 2019-02-27 10:50 | disposition home or self-care (01) ==
LOC: EC 09:30
DX: S61.011A Laceration without foreign body of right thumb without damage to nail, initial encounter (principal); J44.9 Chronic obstructive pulmonary disease, unspecified; N18.4 Chronic kidney disease, stage 4 (severe); I12.9 Hypertensive chronic kidney disease with stage 1 through stage 4 chronic kidney disease, or unspecified chronic kidney disease; F17.200 Nicotine dependence, unspecified, uncomplicated; Z88.8 Allergy status to other drugs, medicaments and biological substances; Z79.52 Long term (current) use of systemic steroids; Z79.891 Long term (current) use of opiate analgesic; Z79.899 Other long term (current) drug therapy; Z87.39 Personal history of other diseases of the musculoskeletal system and connective tissue; Z23 Encounter for immunization; W26.8XXA Contact with other sharp object(s), not elsewhere classified, initial encounter; Y93.89 Activity, other specified; Y92.009 Unspecified place in unspecified non-institutional (private) residence as the place of occurrence of the external cause
CPT/HCPCS: 90715; 99283; 12002; 90471; J2001

== ENCOUNTER 2019-03-02 17:57 | Inpatient (IN) | payer OTHER ==
[2019-03-02] MEDS ORDERED: SODIUM CHLORIDE 0.9% 1,000 ML IV STA (20:07)
[2019-03-02] MEDS ORDERED: MORPHINE SULFATE 4 MG/ML SYRINGE IV STA (20:07)
[2019-03-02] MEDS ORDERED: ONDANSETRON 4 MG/2 ML VIAL IVP STA (20:07)
--- NOTE | 2019-03-02 20:13 | ED ---
General Adult HPI - General Chief complaint: Nausea/Vomiting/Diarrhea Stated complaint: NVD Time Seen by Provider: 03/02/19 19:36 Source: patient, RN notes reviewed, old records reviewed Mode of arrival: ambulatory Limitations: no limitations - History of Present Illness Initial comments: 53-year-old female patient with past medical history of hepatitis C, liver cirrhosis, TKD stage IV, hypertension, status post tubal ligation present to ED with chief complaint of one day of nausea vomiting diarrhea. Patient also reports periumbilical abdominal pain. Patient denies any other complaints. Patient has a chest pain shortness of breath abdominal pain, nausea vomiting diarrhea. Systemic: Pt denies fatigue, fever/chills, rash. Pt denies weakness, night sweats, weight loss. Neuro: Pt denies headache, visual disturbances, syncope or pre-syncope. HEENT: Pt denies ocular discharge or irritation, otalgia, rhinorrhea, pharyngitis or notable lymphadenopathy. Cardiopulmonary: Pt denies chest pain, SOB, heart palpitations, dyspnea on exertion. : Pt denies dysuria, burning w/ urination, frequency/urgency. Denies new onset urinary or bowel incontinence. MSK: Pt denies myalgia, loss of strength or function in extremities. Neuro: Pt denies new onset weakness, paresthesias. - Related Data Home Medications Medication Instructions Recorded Confirmed ALPRAZolam [Xanax] 0.25 mg PO BID PRN 09/13/18 02/27/19 Metoprolol Tartrate 25 mg PO DAILY 09/13/18 02/27/19 Furosemide [Lasix] 40 mg PO DAILY 11/21/18 02/27/19 HYDROcodone/APAP 10-325MG [[place] 1 tab PO BID 11/21/18 02/27/19 10-325] Spironolactone [Aldactone] 25 mg PO DAILY 11/21/18 02/27/19 Allopurinol [Zyloprim] 100 mg PO DAILY 01/12/19 02/27/19 Pantoprazole Sodium [Protonix] 40 mg PO DAILY 01/12/19 02/27/19 Folic Acid 1 mg PO DAILY 02/13/19 02/27/19 predniSONE 10 mg PO DAILY 02/13/19 02/27/19 Previous Rx's Medication Instructions Recorded Cephalexin [Keflex] 500 mg PO Q6HR 3 Days #12 cap 02/27/19 Allergies Allergy/AdvReac Type Severity Reaction Status Date / Time bupropion [From Wellbutrin] AdvReac seizure Verified 03/02/19 18:13 Review of Systems ROS Statement: Those systems with pertinent positive or pertinent negative responses have been documented in the HPI. ROS Other: All systems not noted in ROS Statement are negative. Past Medical History Past Medical History: COPD, Hypertension, Liver Disease, Renal Disease Additional Past Medical History / Comment(s): Hep C, alcoholic liver cirrhosis, ascities, CKD stage IV, anemia, frequent diarrhea, low back pain from an injury. History of Any Multi-Drug Resistant Organisms: None Reported Past Surgical History: Tubal Ligation Additional Past Surgical History / Comment(s): Paracentesis's Past Anesthesia/Blood Transfusion Reactions: No Reported Reaction Additional Past Anesthesia/Blood Transfusion Reaction / Comment(s): cla ustrophobia Past Psychological History: Anxiety, Depression Smoking Status: Current every day smoker Past Alcohol Use History: None Reported Past Drug Use History: None Reported - Past Family History Father History Unknown: Yes Family Medical History: Cancer Additional Family Medical History / Comment(s): Unk type of cancer. Father is . Mother History Unknown: Yes Family Medical History: AFIB, Congestive Heart Failure (CHF), Myocardial Infarction ([place]), Seizure Disorder Additional Family Medical History / Comment(s): Mother had a [place] at the age of 52 yrs. She is . General Exam - General Exam Comments Initial Comments: Constitutional: NAD, AOX3, Pt has pleasant affect. HEENT: NC/AT, trachea midline, neck supple, no lymphadenopathy. Posterior pharynx non erythematous, without exudates. External ears appear normal, without discharge. Mucous membranes moist. Eyes PERRLA, EOM intact. There is no scleral icterus. No pallor noted. Cardiopulmonary: RRR, no murmurs, rubs or gallops, no JVD noted. Lungs CTAB in anterior and posterior downs. No peripheral edema. Abdominal exam: Ascitic abdomen, mildly distended. Abdomen mildly tender to palpation in periumbilical region. Bowel sounds active in LLQ. No ecchymosis Neuro: CN II-XII grossly intact. No nuchal rigidity. No raccon eyes, no caldwell sign, no hemotympanum. No cervical spinal tenderness. MSK: No posterior calf tenderness bilaterally, homans sign negative bilaterally. Posterior tibialis and radial pulse +2 bilaterally. Sensation intact in upper a nd lower extremities. Full active ROM in upper and lower extremities, 5/5 stregnth. Limitations: no limitations Course Vital Signs 03/02/19 03/02/19 03/02/19 18:10 21:00 22:01 Temperature 98.9 F Pulse Rate 111 H 90 94 Respiratory 18 18 18 Rate Blood Pressure 159/98 170/88 158/90 O2 Sat by Pulse 99 100 98 Oximetry Medical Decision Making - Medical Decision Making 53-year-old female patient with past medical history of hepatitis C, liver cirrhosis, TKD stage IV, hypertension, status post tubal ligation present to ED with chief complaint of one day of nausea vomiting diarrhea. Patient also reports periumbilical abdominal pain. Patient denies any other complaints. Patient has a chest pain shortness of breath abdominal pain, nausea vomiting diarrhea. Patient vital signs stable, afebrile. Physical exam displayed: Ascitic abdomen, mildly distended. Abdomen mildly tender to palpation in periumbilical region. Bowel sounds active in LLQ. No No ecchymosis. Laboratory investigations revealed an impressive CBC. CMP revealed gradient 2.01. Mildly elevated glucose of 112, mildly elevated bilirubin 1.9. Mildly elevated AST of 52. UA displayed +3 protein, greater than 182 RBC, [address] abdomen and pelvis without contrast displayed massive ascites, hepatic cirrhosis, splenomegaly, changes in portal venous hypertension with varicose veins a gastroesophageal junction. Extensive subcutaneous edema. Ascites worse the last exam. Patient be admitted for evaluation and likely paracentesis. Case assessment patient seen by Dr. Godwin. - Lab Data Result diagrams: 03/02/19 20:55 03/02/19 20:55 Lab Results 03/02/19 03/02/19 03/02/19 Range/Units 20:55 20:55 20:55 WBC 7.6 (3.8-10.6) k/uL RBC 4.36 (3.80-5.40) m/uL Hgb 13.5 (11.4-16.0) gm/dL Hct 42.2 (34.0-46.0) % MCV 96.8 (80.0-100.0) fL MCH 31.0 (25.0-35.0) pg MCHC 32.0 (31.0-37.0) g/dL RDW 17.2 H (11.5-15.5) % Plt Count 108 L (150-450) k/uL Neutrophils % 80 % Lymphocytes % 10 % Monocytes % 6 % Eosinophils % 2 % Basophils % 0 % Neutrophils # 6.1 (1.3-7.7) k/uL Lymphocytes # 0.8 L (1.0-4.8) k/uL Monocytes # 0.5 (0-1.0) k/uL Eosinophils # 0.1 (0-0.7) k/uL Basophils # 0.0 (0-0.2) k/uL Hypochromasia Slight Poikilocytosis Slight Anisocytosis Slight Macrocytosis Slight Sodium 140 (137-145) mmol/L Potassium 3.8 (3.5-5.1) mmol/L Chloride 113 H (98-107) mmol/L Carbon Dioxide 21 L (22-30) mmol/L Anion Gap 6 mmol/L BUN 44 H (7-17) mg/dL Creatinine 2.01 H (0.52-1.04) mg/dL Est GFR (CKD-EPI)AfAm 32 (>60 ml/min/1.73 sqM) Est GFR (CKD-EPI)NonAf 28 (>60 ml/min/1.73 sqM) Glucose 112 H (74-99) mg/dL Plasma Lactic Acid Luis E 2.0 (0.7-2.0) mmol/L Calcium 8.5 (8.4-10.2) mg/dL Total Bilirubin 1.9 H (0.2-1.3) mg/dL AST 52 H (14-36) U/L ALT 35 (9-52) U/L Alkaline Phosphatase 91 (38-126) U/L Total Protein 6.5 (6.3-8.2) g/dL Albumin 2.6 L (3.5-5.0) g/dL Lipase 243 (23-300) U/L Urine Color Urine Appearance (Clear) Urine pH (5.0-8.0) Ur Specific [place] (1.001-1.035) Urine Protein (Negative) Urine Glucose (UA) (Negative) Urine Ketones (Negative) Urine Blood (Negative) Urine Nitrite (Negative) Urine Bilirubin (Negative) Urine Urobilinogen (<2.0) mg/dL Ur Leukocyte Esterase (Negative) Urine RBC (0-5) /hpf Urine WBC (0-5) /hpf Ur Squamous Epith Cells (0-4) /hpf Hyaline Casts (0-2) /lpf Granular Casts (0) /lpf Urine Mucus (None) /hpf 03/02/19 Range/Units 20:55 WBC (3.8-10.6) k/uL RBC (3.80-5.40) m/uL Hgb (11.4-16.0) gm/dL Hct (34.0-46.0) % MCV (80.0-100.0) fL MCH (25.0-35.0) pg MCHC (31.0-37.0) g/dL RDW (11.5-15.5) % Plt Count (150-450) k/uL Neutrophils % % Lymphocytes % % Monocytes % % Eosinophils % % Basophils % % Neutrophils # (1.3-7.7) k/uL Lymphocytes # (1.0-4.8) k/uL Monocytes # (0-1.0) k/uL Eosinophils # (0-0.7) k/uL Basophils # (0-0.2) k/uL Hypochromasia Poikilocytosis Anisocytosis Macrocytosis Sodium (137-145) mmol/L Potassium (3.5-5.1) mmol/L Chloride (98-107) mmol/L Carbon Dioxide (22-30) mmol/L Anion Gap mmol/L BUN (7-17) mg/dL Creatinine (0.52-1.04) mg/dL Est GFR (CKD-EPI)AfAm (>60 ml/min/1.73 sqM) Est GFR (CKD-EPI)NonAf (>60 ml/min/1.73 sqM) Glucose (74-99) mg/dL Plasma Lactic Acid Luis E (0.7-2.0) mmol/L Calcium (8.4-10.2) mg/dL Total Bilirubin (0.2-1.3) mg/dL AST (14-36) U/L ALT (9-52) U/L Alkaline Phosphatase (38-126) U/L Total Protein (6.3-8.2) g/dL Albumin (3.5-5.0) g/dL Lipase (23-300) U/L Urine Color Light Red Urine Appearance Cloudy H (Clear) Urine pH 6.0 (5.0-8.0) Ur Specific [place] 1.026 (1.001-1.035) Urine Protein 3+ H (Negative) Urine Glucose (UA) Negative (Negative) Urine Ketones Negative (Negative) Urine Blood Moderate H (Negative) Urine Nitrite Negative (Negative) Urine Bilirubin 1+ H (Negative) Urine Urobilinogen 3.0 (<2.0) mg/dL Ur Leukocyte Esterase Trace H (Negative) Urine RBC >182 H (0-5) /hpf Urine WBC 9 H (0-5) /hpf Ur Squamous Epith Cells 9 H (0-4) /hpf Hyaline Casts 151 H (0-2) /lpf Granular Casts 9 (0) /lpf Urine Mucus Rare H (None) /hpf Disposition Clinical Impression: Abdominal pain, Ascites, Nausea vomiting and diarrhea Disposition: ADMITTED IP TO THIS [facility] Condition: Serious Is patient prescribed a controlled substance at d/c from ED?: No Referrals: Kel Mason MD [Primary Care Provider] - 1-2 days
[2019-03-02 21:14] LABS: Appearance,Urine Cloudy (Clear); Bilirubin,Urine 1+ (Negative); Blood,Urine Moderate (Negative); Color,Urine Light Red; Glucose,Urine (UA) Negative (Negative); Granular Casts,Urine 9 /lpf (0); Hyaline Casts,Urine 151 /lpf (0-2); Ketones,Urine Negative (Negative); Leukocyte Esterase,Urine Trace (Negative); Mucus,Urine Rare /hpf; Nitrite,Urine Negative (Negative); Protein,Urine 3+ (Negative); RBC,Urine >182 /hpf (0-5); Specific Gravity,Urine 1.026 (1.001-1.035); Squamous Epithelial Cell,Urine 9 /hpf (0-4); WBC,Urine 9 /hpf (0-5)
[2019-03-02 21:15] LABS: Albumin 2.6 g/dL (3.5-5.0); Calcium 8.5 mg/dL (8.4-10.2); Potassium 3.8 mmol/L (3.5-5.1); Total Bilirubin 1.9 mg/dL (0.2-1.3); Total Protein 6.5 g/dL (6.3-8.2)
[2019-03-02 21:22] LABS: Anisocytosis Slight; Basophils % (A) 0 %; Eosinophils # (A) 0.1 k/uL (0-0.7); Eosinophils % (A) 2 %; HCT 42.2 % (34.0-46.0); HGB 13.5 gm/dL (11.4-16.0); Hypochromasia Slight; Lymphocytes # (A) 0.8 k/uL (1.0-4.8); Lymphocytes % (A) 10 %; MCV 96.8 fL (80.0-100.0); Macrocytosis Slight; Monocytes # (A) 0.5 k/uL (0-1.0); Monocytes % (A) 6 %; Neutrophils # (A) 6.1 k/uL (1.3-7.7); Neutrophils % (A) 80 %; Platelet Count 108 k/uL (150-450); Poikilocytosis Slight; RBC 4.36 m/uL (3.80-5.40); RDW 17.2 % (11.5-15.5); WBC 7.6 k/uL (3.8-10.6)
--- NOTE | 2019-03-02 21:55 | CT ---
EXAMINATION TYPE: CT abdomen pelvis wo con DATE OF EXAM: 03/02/2019 COMPARISON: 09/13/2018 HISTORY: abd pain CT DLP: [id number] mGycm Automated exposure control for dose reduction was used. TECHNIQUE: Helical acquisition of images was performed from the lung bases through the pelvis. FINDINGS: Lung bases are clear. There is no pleural effusion. Heart size is normal. There is small pericardial effusion. There is irregular liver consistent with cirrhosis. There is massive ascites. There is subcutaneous e davin around the abdomen. The spleen is enlarged and measures 18 cm. There is no evidence of gastric m ass. There is no evidence of pancreatic mass. There are diverticula in the large bowel. There is no s ign of free air. Bladder distends smoothly. Uterus is anteverted. There is narrowing at L5-S1 disc sp jose carlos with vacuum disc. I see no bony destructive process. Bony pelvis is intact. There is no adrenal mass. Kidneys show no hydronephrosis. There is no sign of retroperitoneal adenopa thy. There is no sign of pneumoperitoneum. There are a few prominent vessels at the gastroesophageal junct ion. There is subcutaneous edema over the lumbar spine. IMPRESSION: MASSIVE ASCITES. HEPATIC CIRRHOSIS. SPLENOMEGALY. CHANGES OF PORTAL VENOUS HYPERTENSION WITH VARICOSE VEINS AT THE GASTROESOPHAGEAL JUNCTION. EXTENSIVE SUBCUTANEOUS EDEMA. ASCITES APPEARS WORSE THAN LAS T EXAM.
[2019-03-02] MEDS ORDERED: NALOXONE 0.4 MG/ML 1 ML VIAL IV PRN (22:54)
[2019-03-02] MEDS ORDERED: SODIUM CHLORIDE 0.9% 1,000 ML IV SCH (23:00)
[2019-03-02] MEDS: MORPHINE SULFATE 4 MG/ML SYRINGE IV PRN (23:30)
[2019-03-03 00:12] VITALS: BMI 43.3
[2019-03-03] MEDS: ONDANSETRON 4 MG/2 ML VIAL IVP PRN (04:32)
[2019-03-03] MEDS: MORPHINE SULFATE 4 MG/ML SYRINGE IV PRN ×5 (04:32→23:40)
[2019-03-03 08:35] LABS: Albumin 1.8 g/dL (3.5-5.0); Calcium 7.7 mg/dL (8.4-10.2); Potassium 3.8 mmol/L (3.5-5.1); Total Bilirubin 1.2 mg/dL (0.2-1.3); Total Protein 4.8 g/dL (6.3-8.2)
[2019-03-03 08:38] LABS: Anisocytosis Slight; HCT 31.1 % (34.0-46.0); MCH 31.2 pg (25.0-35.0); MCHC 32.4 g/dL (31.0-37.0); MCV 96.1 fL (80.0-100.0); Mean Platelet Volume 8.1; Poikilocytosis Slight; RBC 3.23 m/uL (3.80-5.40); RDW 16.9 % (11.5-15.5); WBC 6.7 k/uL (3.8-10.6)
[2019-03-03 08:49] LABS: HGB 10.1 gm/dL (11.4-16.0)
[2019-03-03] MEDS ORDERED: ALPRAZolam 0.25 MG TAB PO PRN (10:52)
[2019-03-03 10:53] LABS: Platelet Count 81 k/uL (150-450)
[2019-03-03] MEDS: SPIRONOLACTONE 25 MG TAB PO SCH (12:18)
[2019-03-03] MEDS: FUROSEMIDE 40 MG TAB PO SCH (12:18)
[2019-03-03] MEDS: METOPROLOL TARTRATE 25 MG TAB PO SCH (12:18)
[2019-03-03] MEDS: PANTOPRAZOLE 40 MG TABLET PO SCH (12:18)
[2019-03-03] MEDS: ALLOPURINOL 100 MG TAB PO SCH (12:19)
[2019-03-03] MEDS: FOLIC ACID 1 MG TAB PO SCH (12:19)
[2019-03-03] MEDS: ALBUMIN HUMAN 25% 50 ML in EMPTY BAG 1 BAG IVPB SCH ×2 (12:22→16:06)
--- NOTE | 2019-03-03 15:54 | P.HPIM ---
History of Present Illness H&P Date: 03/03/19 Heidi Smith, is a 54-year-old female who presented to [facility] emergency room with worsening abdominal pain, ascites, patient was also complaining of nausea vomiting and diarrhea. She has known history of hepatitis C and liver cirrhosis she follows with Dr. Mcdaniel as outpatient her last paracentesis was about 6 weeks ago patient also has known history of chronic kidney disease stage IV, history of hypertension, history of chronic pain, patient was evaluated in emergency room and was admitted to medical floor gastroenterology consultation was requested C. diff toxin was negative in the emergency room. Patient also had evidence of urinary tract infection and was started on IV Rocephin. Past Medical History Past Medical History: COPD, Hypertension, Liver Disease, Renal Disease Additional Past Medical History / Comment(s): Hep C, alcoholic liver cirrhosis, ascities, CKD stage IV, anemia, frequent diarrhea, low back pain from an injury. History of Any Multi-Drug Resistant Organisms: None Reported Past Surgical History: Tubal Ligation Additional Past Surgical History / Comment(s): Paracentesis's Past Anesthesia/Blood Transfusion Reactions: No Reported Reaction Additional Past Anesthesia/Blood Transfusion Reaction / Comment(s): claustrophobia Past Psychological History: Anxiety, Depression Smoking Status: Current every day smoker Past Alcohol Use History: None Reported Past Drug Use History: None Reported - Past Family History Father History Unknown: Yes Family Medical History: Cancer Additional Family Medical History / Comment(s): Unk type of cancer. Father is . Mother History Unknown: Yes Family Medical History: AFIB, Congestive Heart Failure (CHF), Myocardial Infarction ([place]), Seizure Disorder Additional Family Medical History / Comment(s): Mother had a [place] at the age of 52 yrs. She is . Medications and Allergies Home Medications Medication Instructions Recorded Confirmed Type ALPRAZolam [Xanax] 0.25 mg PO BID PRN 09/13/18 03/02/19 History Metoprolol Tartrate 25 mg PO DAILY 09/13/18 03/02/19 History Furosemide [Lasix] 40 mg PO DAILY 11/21/18 03/02/19 History HYDROcodone/APAP 10-325MG [[place] 1 tab PO BID 11/21/18 03/02/19 History 10-325] Spironolactone [Aldactone] 25 mg PO DAILY 11/21/18 03/02/19 History Allopurinol [Zyloprim] 100 mg PO DAILY 01/12/19 03/02/19 History Pantoprazole Sodium [Protonix] 40 mg PO DAILY 01/12/19 03/02/19 History Folic Acid 1 mg PO DAILY 02/13/19 03/02/19 History predniSONE 10 mg PO DAILY 02/13/19 03/02/19 History Cephalexin [Keflex] 500 mg PO Q6HR 3 Days #12 cap 02/27/19 03/02/19 Rx Allergies Allergy/AdvReac Type Severity Reaction Status Date / Time bupropion [From Wellbutrin] AdvReac seizure Verified 03/02/19 23:26 Physical Exam Vitals: Vital Signs Temp Pulse Pulse Resp BP BP Pulse Ox 03/03/19 15:00 98.5 F 83 17 148/90 98 03/03/19 07:00 98.7 F 89 17 125/82 99 03/03/19 03:16 18 03/02/19 23:57 99.3 F 90 18 157/96 98 03/02/19 23:30 97.8 F 71 18 142/92 99 03/02/19 23:00 89 18 162/91 98 03/02/19 22:01 94 18 158/90 98 03/02/19 21:00 90 18 170/88 100 03/02/19 18:10 98.9 F 111 H 18 159/98 99 Intake and Output 03/03/19 03/03/19 03/03/19 06:59 14:59 22:59 Intake Total 560 Balance 560 Intake: Intake, IV Titration 150 Amount Albumin Human 25% 50 ml 100 In Empty Bag 1 bag @ 50 mls/hr IVPB Q1H [facility] Rx#: [id number] cefTRIAXone 1 gm In 50 Sodium Chloride 0.9% 50 ml @ 100 mls/hr IVPB Q24HR [facility] Rx#:[id number] Oral 410 Other: # Voids 1 Weight 111 kg In general patient is alert and oriented 3 in no apparent distress HEENT head normocephalic and atraumatic Neck is supple no JVD no goiter no lymphadenopathy Chest exam reveals a few scattered rhonchi no wheezing Cardiac exam reveals regular heart sounds S1 and S2 no gallops no murmurs Abdomen is soft distended with minimal tenderness with evidence of sinusitis no organomegaly no palpable masses Extremity exam reveals 1+ edema bilaterally no cyanosis or clubbing no tenderness Neurological examination reveals no gross focal deficits Results CBC & Chem 7: 03/03/19 08:03 03/03/19 08:03 Labs: Abnormal Lab Results - Last 24 Hours (Table) 03/02/19 03/02/19 03/02/19 Range/Units 20:55 20:55 20:55 RBC (3.80-5.40) m/uL Hgb (11.4-16.0) gm/dL Hct (34.0-46.0) % RDW 17.2 H (11.5-15.5) % Plt Count 108 L (150-450) k/uL Lymphocytes # 0.8 L (1.0-4.8) k/uL Chloride 113 H (98-107) mmol/L Carbon Dioxide 21 L (22-30) mmol/L BUN 44 H (7-17) mg/dL Creatinine 2.01 H (0.52-1.04) mg/dL Glucose 112 H (74-99) mg/dL Calcium (8.4-10.2) mg/dL Total Bilirubin 1.9 H (0.2-1.3) mg/dL AST 52 H (14-36) U/L Total Protein (6.3-8.2) g/dL Albumin 2.6 L (3.5-5.0) g/dL Urine Appearance Cloudy H (Clear) Urine Protein 3+ H (Negative) Urine Blood Moderate H (Negative) Urine Bilirubin 1+ H (Negative) Ur Leukocyte Esterase Trace H (Negative) Urine RBC >182 H (0-5) /hpf Urine WBC 9 H (0-5) /hpf Ur Squamous Epith Cells 9 H (0-4) /hpf Hyaline Casts 151 H (0-2) /lpf Urine Mucus Rare H (None) /hpf 03/03/19 03/03/19 Range/Units 08:03 08:03 RBC 3.23 L (3.80-5.40) m/uL Hgb 10.1 L D (11.4-16.0) gm/dL Hct 31.1 L (34.0-46.0) % RDW 16.9 H (11.5-15.5) % Plt Count 81 L (150-450) k/uL Lymphocytes # (1.0-4.8) k/uL Chloride 115 H (98-107) mmol/L Carbon Dioxide (22-30) mmol/L BUN 44 H (7-17) mg/dL Creatinine 1.92 H (0.52-1.04) mg/dL Glucose (74-99) mg/dL Calcium 7.7 L (8.4-10.2) mg/dL Total Bilirubin (0.2-1.3) mg/dL AST (14-36) U/L Total Protein 4.8 L (6.3-8.2) g/dL Albumin 1.8 L (3.5-5.0) g/dL Urine Appearance (Clear) Urine Protein (Negative) Urine Blood (Negative) Urine Bilirubin (Negative) Ur Leukocyte Esterase (Negative) Urine RBC (0-5) /hpf Urine WBC (0-5) /hpf Ur Squamous Epith Cells (0-4) /hpf Hyaline Casts (0-2) /lpf Urine Mucus (None) /hpf Microbiology - Last 24 Hours (Table) 03/02/19 20:55 Urine Culture - Preliminary Urine,Clean Catch Thrombosis Risk Factor Assmnt - Choose All That Apply Any of the Below Risk Factors Present?: Yes Each Factor Represents 1 point: Age 41-60 years, Obesity (BMI >25) Thrombosis Risk Factor Assessment Total Risk Factor Score: 2 Thrombosis Risk Factor Assessment Level: Low Risk Assessment and Plan Plan: #1 gastroenteritis with nausea vomiting and diarrhea #2 underlying history of liver cirrhosis #3 increasing ascites, patient in need of paracentesis #4 evidence of urinary tract infection started on IV Rocephin #5 underlying history of chronic pain #6 underlying history of hypertension Medication and labs were reviewed please see orders Recheck labs and follow-up in a.m.
[2019-03-03 18:30] LABS: Anisocytosis Slight; Hypochromasia Slight; MCH 30.8 pg (25.0-35.0); MCHC 31.4 g/dL (31.0-37.0); MCV 98.2 fL (80.0-100.0); Macrocytosis Slight; Mean Platelet Volume 8.6; Platelet Count 104 k/uL (150-450); Poikilocytosis Slight; RBC 3.57 m/uL (3.80-5.40); RDW 16.2 % (11.5-15.5); WBC 7.8 k/uL (3.8-10.6)
[2019-03-03] MEDS ORDERED: HYDROcodone/APAP 10-325MG 1 EACH TAB PO SCH (21:00)
--- NOTE | 2019-03-03 23:59 | P.CONS ---
History of Present Illness - Reason for Consult Consult date: 03/03/19 Vomiting and diarrhea Requesting physician: Kel Mason - Chief Complaint Hospital vomiting and diarrhea 1 day - History of Present Illness Patient is a 54-year-old female with a past medical history significant for liver cirrhosis secondary to chronic hepatitis C, did have a history of abdominal ascites that was last tapped about 6 weeks ago presenting to the ER with chief complaints of nausea vomiting and diarrhea of one-day duration patient did not recall anything unusual initially symptoms started with multiple episodes of vomiting and unable to keep anything down the patient complaining of some generalized abdominal pain more of a crampy nature about 5-6 out of 10 and no radiation with associated diarrhea with multiple loose stools almost 8-9 episodes per day with some mucus but no blood in the stool, the patient did not recall taking an antibiotic in the recent past with the symptoms the patient has been evaluated by the care physician patient did not have any fever on presentation or elevated white count CT of abdominal pelvis was suggest sadie of massive ascites and no other acute abnormality patient did have mildly positive UA patient stool for C. diff came back negative he was started on Rocephin and admitted to the hospital infectious disease was consulted for further recommendation about antibiotic therapy Review of Systems Positive points has been mentioned in HPI rest of the systems are negative Past Medical History Past Medical History: COPD, Hypertension, Liver Disease, Renal Disease Additional Past Medical History / Comment(s): Hep C, alcoholic liver cirrhosis, ascities, CKD stage IV, anemia, frequent diarrhea, low back pain from an injury. History of Any Multi-Drug Resistant Organisms: None Reported Past Surgical History: Tubal Ligation Additional Past Surgical History / Comment(s): Paracentesis's Past Anesthesia/Blood Transfusion Reactions: No Reported Reaction Additional Past Anesthesia/Blood Transfusion Reaction / Comm: claustrophobia Past Psychological History: Anxiety, Depression Smoking Status: Current every day smoker Past Alcohol Use History: None Reported Past Drug Use History: None Reported - Past Family History Father History Unknown: Yes Family Medical History: Cancer Additional Family Medical History / Comment(s): Unk type of cancer. Father is . Mother History Unknown: Yes Family Medical History: AFIB, Congestive Heart Failure (CHF), Myocardial Infarction ([place]), Seizure Disorder Additional Family Medical History / Comment(s): Mother had a [place] at the age of 52 yrs. She is . Medications and Allergies Home Medications Medication Instructions Recorded Confirmed Type ALPRAZolam [Xanax] 0.25 mg PO BID PRN 09/13/18 03/02/19 History Metoprolol Tartrate 25 mg PO DAILY 09/13/18 03/02/19 History Furosemide [Lasix] 40 mg PO DAILY 11/21/18 03/02/19 History HYDROcodone/APAP 10-325MG [[place] 1 tab PO BID 11/21/18 03/02/19 History 10-325] Spironolactone [Aldactone] 25 mg PO DAILY 11/21/18 03/02/19 History Allopurinol [Zyloprim] 100 mg PO DAILY 01/12/19 03/02/19 History Pantoprazole Sodium [Protonix] 40 mg PO DAILY 01/12/19 03/02/19 History Folic Acid 1 mg PO DAILY 02/13/19 03/02/19 History predniSONE 10 mg PO DAILY 02/13/19 03/02/19 History Cephalexin [Keflex] 500 mg PO Q6HR 3 Days #12 cap 02/27/19 03/02/19 Rx Allergies Allergy/AdvReac Type Severity Reaction Status Date / Time bupropion [From Wellbutrin] AdvReac seizure Verified 03/02/19 23:26 Physical Exam Vitals: Vital Signs Temp Pulse Pulse Resp BP BP Pulse Ox 03/03/19 07:00 98.7 F 89 17 125/82 99 03/03/19 03:16 18 03/02/19 23:57 99.3 F 90 18 157/96 98 03/02/19 23:30 97.8 F 71 18 142/92 99 03/02/19 23:00 89 18 162/91 98 03/02/19 22:01 94 18 158/90 98 03/02/19 21:00 90 18 170/88 100 03/02/19 18:10 98.9 F 111 H 18 159/98 99 Intake and Output 03/02/19 03/03/19 03/03/19 22:59 06:59 14:59 Other: # Voids 1 Weight 112.491 kg 111 kg GENERAL DESCRIPTION: Middle-aged female lying in bed, no distress. No tachypnea or accessory muscle of respiration use. HEENT: Shows Pallor , no scleral icterus. Oral mucous membrane is dry. No pharyngeal erythema or thrush NECK: Trachea central, no thyromegaly. LUNGS: Unlabored breathing. Clear to auscultation anteriorly. No wheeze or crackle. HEART: S1, S2, regular rate and rhythm. No loud murmur ABDOMEN: Soft, distention, no significant tenderness guarding or rigidity EXTREMITIES: 1+ edema of feet. SKIN: No rash, no masses palpable. NEUROLOGICAL: The patient is awake, alert, oriented x3, mood and affect normal Results CBC & Chem 7: 03/03/19 18:11 03/03/19 08:03 Labs: Abnormal Lab Results - Last 24 Hours (Table) 03/02/19 03/02/19 03/02/19 Range/Units 20:55 20:55 20:55 RBC (3.80-5.40) m/uL Hgb (11.4-16.0) gm/dL Hct (34.0-46.0) % RDW 17.2 H (11.5-15.5) % Plt Count 108 L (150-450) k/uL Lymphocytes # 0.8 L (1.0-4.8) k/uL Chloride 113 H (98-107) mmol/L Carbon Dioxide 21 L (22-30) mmol/L BUN 44 H (7-17) mg/dL Creatinine 2.01 H (0.52-1.04) mg/dL Glucose 112 H (74-99) mg/dL Calcium (8.4-10.2) mg/dL Total Bilirubin 1.9 H (0.2-1.3) mg/dL AST 52 H (14-36) U/L Total Protein (6.3-8.2) g/dL Albumin 2.6 L (3.5-5.0) g/dL Urine Appearance Cloudy H (Clear) Urine Protein 3+ H (Negative) Urine Blood Moderate H (Negative) Urine Bilirubin 1+ H (Negative) Ur Leukocyte Esterase Trace H (Negative) Urine RBC >182 H (0-5) /hpf Urine WBC 9 H (0-5) /hpf Ur Squamous Epith Cells 9 H (0-4) /hpf Hyaline Casts 151 H (0-2) /lpf Urine Mucus Rare H (None) /hpf 03/03/19 03/03/19 Range/Units 08:03 08:03 RBC 3.23 L (3.80-5.40) m/uL Hgb 10.1 L D (11.4-16.0) gm/dL Hct 31.1 L (34.0-46.0) % RDW 16.9 H (11.5-15.5) % Plt Count 81 L (150-450) k/uL Lymphocytes # (1.0-4.8) k/uL Chloride 115 H (98-107) mmol/L Carbon Dioxide (22-30) mmol/L BUN 44 H (7-17) mg/dL Creatinine 1.92 H (0.52-1.04) mg/dL Glucose (74-99) mg/dL Calcium 7.7 L (8.4-10.2) mg/dL Total Bilirubin (0.2-1.3) mg/dL AST (14-36) U/L Total Protein 4.8 L (6.3-8.2) g/dL Albumin 1.8 L (3.5-5.0) g/dL Urine Appearance (Clear) Urine Protein (Negative) Urine Blood (Negative) Urine Bilirubin (Negative) Ur Leukocyte Esterase (Negative) Urine RBC (0-5) /hpf Urine WBC (0-5) /hpf Ur Squamous Epith Cells (0-4) /hpf Hyaline Casts (0-2) /lpf Urine Mucus (None) /hpf Microbiology - Last 24 Hours (Table) 03/02/19 20:55 Urine Culture - Preliminary Urine,Clean Catch Assessment and Plan Assessment: 1-patient presented to hospital with acute nausea vomiting and diarrhea with crampy abdominal pain with concern for possible infectious versus noninfectious diarrhea stool for C. diff has been negative, stool culture will be obtained to complete the workup 2- patient with ascites and abdominal pain need to rule out SBP 3-positive UA and question of symptomatic urinary tract infection (1) Gastroenteritis Current Visit: Yes Status: Acute Code(s): K52.9 - NONINFECTIVE GASTROENTERITIS AND COLITIS, UNSPECIFIED SNOMED Code(s): 23507542 (2) Ascites Current Visit: Yes Status: Acute Code(s): R18.8 - OTHER ASCITES SNOMED Code(s): 772715478 (3) UTI (urinary tract infection) Current Visit: No Status: Acute Code(s): N39.0 - URINARY TRACT INFECTION, SITE NOT SPECIFIED SNOMED Code(s): 72023518 Plan: 1- we'll recommend paracentesis both therapeutic and diagnostic with the fluid should be sent for cell count differential Gram stain and culture 2-we will check stool cultures to complete the workup for her diarrhea 3-continue with empiric Rocephin 1 g daily we will follow up on clinical condition and cultures to further adjust medication if needed Thank you for this consultation will follow this patient along with you Time with Patient: Greater than 30
[2019-03-04] MEDS: MORPHINE SULFATE 4 MG/ML SYRINGE IV PRN ×5 (03:59→21:24)
[2019-03-04 07:36] LABS: Anisocytosis Slight; Basophils % (A) 1 %; Eosinophils # (A) 0.1 k/uL (0-0.7); Eosinophils % (A) 2 %; HCT 30.1 % (34.0-46.0); HGB 9.6 gm/dL (11.4-16.0); Hypochromasia Slight; Lymphocytes # (A) 2.1 k/uL (1.0-4.8); Lymphocytes % (A) 37 %; MCH 30.9 pg (25.0-35.0); MCHC 31.9 g/dL (31.0-37.0); MCV 96.8 fL (80.0-100.0); Macrocytosis Slight; Mean Platelet Volume 8.7; Monocytes # (A) 0.6 k/uL (0-1.0); Monocytes % (A) 11 %; Neutrophils # (A) 2.6 k/uL (1.3-7.7); Neutrophils % (A) 47 %; Poikilocytosis Slight; RBC 3.11 m/uL (3.80-5.40); WBC 5.5 k/uL (3.8-10.6)
[2019-03-04 07:52] LABS: Calcium 7.8 mg/dL (8.4-10.2); Potassium 3.7 mmol/L (3.5-5.1); Total Bilirubin 1.1 mg/dL (0.2-1.3); Total Protein 4.9 g/dL (6.3-8.2)
[2019-03-04] MEDS: FUROSEMIDE 40 MG TAB PO SCH (07:53)
[2019-03-04] MEDS: PANTOPRAZOLE 40 MG TABLET PO SCH (07:53)
[2019-03-04] MEDS: SPIRONOLACTONE 25 MG TAB PO SCH (07:53)
[2019-03-04] MEDS: METOPROLOL TARTRATE 25 MG TAB PO SCH (07:53)
[2019-03-04] MEDS: FOLIC ACID 1 MG TAB PO SCH (07:53)
[2019-03-04] MEDS: ALLOPURINOL 100 MG TAB PO SCH (07:54)
[2019-03-04] MEDS: predniSONE 10 MG TAB PO SCH (07:54)
[2019-03-04 08:08] LABS: Platelet Count 74 k/uL (150-450)
[2019-03-04] MEDS: HYDROcodone/APAP 10-325MG 1 EACH TAB PO PRN ×2 (10:08→15:54)
--- NOTE | 2019-03-04 13:10 | P.PN ---
Subjective Progress Note Date: 03/04/19 Heidi Smith, is a 54-year-old female who presented to [facility] emergency room with worsening abdominal pain, ascites, patient was also complaining of nausea vomiting and diarrhea. She has known history of hepatitis C and liver cirrhosis she follows with Dr. Mcdaniel as outpatient her last paracentesis was about 6 weeks ago patient also has known history of chronic kidney disease stage IV, history of hypertension, history of chronic pain, patient was evaluated in emergency room and was admitted to medical floor gastroenterology consultation was requested C. diff toxin was negative in the emergency room. Patient also had evidence of urinary tract infection and was started on IV Rocephin. On 03/04/2019 patient was seen and examined on the medical floor he is alert and oriented 3 in no apparent distress she is complaining of abdominal distention with discomfort pain otherwise she denies any complaints there is no fever or chills no headache or dizziness no chest pain no shortness of breath no cough no nausea or vomiting no diarrhea and no urinary symptoms Objective - Vital Signs Vital signs: Vital Signs Temp 97.9 F 03/04/19 07:47 Pulse 57 L 03/04/19 07:47 Resp 16 03/04/19 07:47 BP 138/81 03/04/19 07:47 Pulse Ox 100 03/04/19 07:47 Intake & Output 03/03/19 03/04/19 03/04/19 18:59 06:59 18:59 Intake Total 560 390 Balance 560 390 Intake: Intake, IV Titration 150 Amount Albumin Human 25% 50 ml 100 In Empty Bag 1 bag @ 50 mls/hr IVPB Q1H [facility] Rx#: [id number] cefTRIAXone 1 gm In 50 Sodium Chloride 0.9% 50 ml @ 100 mls/hr IVPB Q24HR [facility] Rx#:[id number] Oral 410 390 Other: Voiding Method Toilet Toilet # Voids 2 - Exam In general patient is alert and oriented 3 in no apparent distress HEENT head normocephalic and atraumatic Neck is supple no JVD no goiter no lymphadenopathy Chest exam reveals a few scattered rhonchi no wheezing Cardiac exam reveals regular heart sounds S1 and S2 no gallops no murmurs Abdomen is soft distended with minimal tenderness with evidence of sinusitis no organomegaly no palpable masses Extremity exam reveals 1+ edema bilaterally no cyanosis or clubbing no tenderness Neurological examination reveals no gross focal deficits - Labs CBC & Chem 7: 03/04/19 07:19 03/04/19 07:19 Labs: Abnormal Lab Results - Last 24 Hours (Table) 03/03/19 03/04/19 03/04/19 Range/Units 18:11 07:19 07:19 RBC 3.57 L 3.11 L (3.80-5.40) m/uL Hgb 11.0 L 9.6 L (11.4-16.0) gm/dL Hct 30.1 L (34.0-46.0) % RDW 16.2 H 17.0 H (11.5-15.5) % Plt Count 104 L 74 L (150-450) k/uL Chloride 112 H (98-107) mmol/L BUN 43 H (7-17) mg/dL Creatinine 1.92 H (0.52-1.04) mg/dL Calcium 7.8 L (8.4-10.2) mg/dL AST 44 H (14-36) U/L Total Protein 4.9 L (6.3-8.2) g/dL Albumin 2.0 L (3.5-5.0) g/dL Microbiology - Last 24 Hours (Table) 03/02/19 20:55 Urine Culture - Final Urine,Clean Catch Assessment and Plan Plan: #1 gastroenteritis with nausea vomiting and diarrhea #2 underlying history of liver cirrhosis #3 increasing ascites, patient in need of paracentesis #4 evidence of urinary tract infection started on IV Rocephin #5 underlying history of chronic pain #6 underlying history of hypertension Medication and labs were reviewed please see orders Recheck labs and follow-up in a.m.
--- NOTE | 2019-03-04 20:00 | PN ---
PROGRESS NOTE DATE OF SERVICE: 03/04/2019. REASON FOR FOLLOW UP: 1. Acute gastroenteritis. 2. Possible SBP. INTERVAL HISTORY: The patient is currently afebrile. The patient's nausea, vomiting, diarrhea seemed to have resolved. Still complaining of some abdominal pain, but no worsening. Denies any chest pain. No shortness of breath or cough. PHYSICAL EXAMINATION: Blood pressure 130/81 with a pulse of 57, temperature 97.9. She is 100% on room air. General description is a middle aged female, lying in bed in no distress. RESPIRATORY SYSTEM: Unlabored breathing. Clear to auscultation anteriorly. HEART: S1, S2. Regular rate and rhythm. ABDOMEN: Soft, nondistended. No guarding or rigidity. LABS: Hemoglobin 9.2, white count 5.5. BUN of 43, creatinine 1.92. Urine culture currently pending. No cultures could be obtained. DIAGNOSTIC IMPRESSION/PLAN: 1. Patient admitted to the hospital with acute nausea, vomiting and diarrhea with possible gastroenteritis, possible viral. Stool cultures not obtained. Stool for C difficile is negative. 2. Patient with abdominal pain and ascites with concern for SBP for paracentesis tomorrow. Fluid should be sent for Gram stain and culture. Continue Rocephin at this point. 3. Positive UA and a question of possible urinary tract infection. Currently covered with Rocephin. MMODL / IJN: [id number] / MTDD
--- NOTE | 2019-03-04 21:13 | P.CONS ---
History of Present Illness - Reason for Consult Consult date: 03/04/19 Ascites Requesting physician: Kel Mason - Chief Complaint Nausea, vomiting and diarrhea - History of Present Illness 54-year-old female with a medical history significant for hepatitis C treatment daniel, alcoholic cirrhosis currently abstinent from alcohol use, CK D4, h ypertension and chronic back pain who presents to the hospital with complaints of abdominal pain, nausea, vomiting and diarrhea. She probably reports 1 day of nausea, vomiting and diarrhea reporting multiple episodes of nonbloody, non service. She denies any inciting events such as unusual foods or travel. The patient also reports abdominal pain described as distention and crampy in nature. She reports multiple episodes of loose nonbloody, non-osmotic stool. No recent antibiotic exposure reported. She reports 3 paracentesis in the past and is currently on a diuretic regimen with Lasix 40 mg daily and Aldactone 25 mg daily. Testing for Clostridium difficile was found to be negative. She denies any prior upper endoscopy. No prior history of GI bleed. On admission he WBC 5.5, hemoglobin 9.6, platelet count 74,000, total bilirubin 1.1, alkaline phosphatase 61, AST 44 and ALT 30. Computed tomography scan of the abdomen was significant for massive ascites, cirrhosis, splenomegaly, portal hypertension and gastroesophageal varices. Review of Systems REVIEW OF SYSTEMS: CONSTITUTIONAL: Denies any fevers, chills, weight change or fatigue. CARDIOVASCULAR: Denies any chest pain, palpitations high or low blood pressures RESPIRATORY: Denies any shortness of breath, hemoptysis or cough. GENITOURINARY: No dysuria or hematuria. MUSCULOSKELETAL: No weakness reported. SKIN: Denies any new rashes or lesions, jaundice or pallor. PSYCHIATRIC: Denies any depression or anxiety. NEUROLOGY: Denies headache, denies any new focal deficits. EARS/NOSE/THROAT: No recent hearing change, congestion, nasal discharge or sore throat. EYES: No pain in eyes, discharge or change in vision. GASTROINTESTINAL: As per HPI. Past Medical History Past Medical History: COPD, Hypertension, Liver Disease, Renal Disease Additional Past Medical History / Comment(s): Hep C, alcoholic liver cirrhosis, ascities, CKD stage IV, anemia, frequent diarrhea, low back pain from an injury. History of Any Multi-Drug Resistant Organisms: None Reported Past Surgical History: Tubal Ligation Additional Past Surgical History / Comment(s): Paracentesis's Past Anesthesia/Blood Transfusion Reactions: No Reported Reaction Additional Past Anesthesia/Blood Transfusion Reaction / Comm: claustrophobia Past Psychological History: Anxiety, Depression Smoking Status: Current every day smoker Past Alcohol Use History: None Reported Past Drug Use History: None Reported - Past Family History Father History Unknown: Yes Family Medical History: Cancer Additional Family Medical History / Comment(s): Unk type of cancer. Father is . Mother History Unknown: Yes Family Medical History: AFIB, Congestive Heart Failure (CHF), Myocardial Infarction ([place]), Seizure Disorder Additional Family Medical History / Comment(s): Mother had a [place] at the age of 52 yrs. She is . Medications and Allergies Home Medications Medication Instructions Recorded Confirmed Type ALPRAZolam [Xanax] 0.25 mg PO BID PRN 09/13/18 03/02/19 History Metoprolol Tartrate 25 mg PO DAILY 09/13/18 03/02/19 History Furosemide [Lasix] 40 mg PO DAILY 11/21/18 03/02/19 History HYDROcodone/APAP 10-325MG [[place] 1 tab PO BID 11/21/18 03/02/19 History 10-325] Spironolactone [Aldactone] 25 mg PO DAILY 11/21/18 03/02/19 History Allopurinol [Zyloprim] 100 mg PO DAILY 01/12/19 03/02/19 History Pantoprazole Sodium [Protonix] 40 mg PO DAILY 01/12/19 03/02/19 History Folic Acid 1 mg PO DAILY 02/13/19 03/02/19 History predniSONE 10 mg PO DAILY 02/13/19 03/02/19 History Cephalexin [Keflex] 500 mg PO Q6HR 3 Days #12 cap 02/27/19 03/02/19 Rx Allergies Allergy/AdvReac Type Severity Reaction Status Date / Time bupropion [From Wellbutrin] AdvReac seizure Verified 03/02/19 23:26 Physical Exam Vitals: Vital Signs Temp Pulse Resp BP Pulse Ox 03/04/19 19:16 98.5 F 69 14 156/82 99 03/04/19 15:00 97.8 F 78 17 131/80 94 L 03/04/19 07:47 97.9 F 57 L 16 138/81 100 03/04/19 00:28 97.9 F 79 14 151/89 96 03/04/19 00:15 18 Intake and Output 03/04/19 03/04/19 03/04/19 06:59 14:59 22:59 Intake Total 440 240 Balance 440 240 Intake: Intake, IV Titration 50 Amount cefTRIAXone 1 gm In 50 Sodium Chloride 0.9% 50 ml @ 100 mls/hr IVPB Q24HR [facility] Rx#:[id number] Oral 390 240 Other: Voiding Method Toilet Toilet # Voids 2 2 On physical examination, patient appears comfortable in no apparent distress. HEAD: Normocephalic, atraumatic. EYES: No scleral icterus. No conjunctival injection. MOUTH: No lesions, tongue midline. NECK: Trachea midline, no gross abnormalities. CHEST: Clear to auscultation with no wheezing or rhonchi appreciated. HEART: Regular rate and rhythm. ABDOMEN: Soft, obese and distended with positive fluid wave. Bowel sounds are positive. No organomegaly. No guarding or rigidity. EXTREMITIES: No pedal edema. SKIN: No rashes, no jaundice. NEUROLOGIC: Alert and oriented x3, no asterixis noted. No focal deficits. Results CBC & Chem 7: 03/04/19 07:19 03/04/19 07:19 Labs: Abnormal Lab Results - Last 24 Hours (Table) 03/04/19 03/04/19 Range/Units 07:19 07:19 RBC 3.11 L (3.80-5.40) m/uL Hgb 9.6 L (11.4-16.0) gm/dL Hct 30.1 L (34.0-46.0) % RDW 17.0 H (11.5-15.5) % Plt Count 74 L (150-450) k/uL Chloride 112 H (98-107) mmol/L BUN 43 H (7-17) mg/dL Creatinine 1.92 H (0.52-1.04) mg/dL Calcium 7.8 L (8.4-10.2) mg/dL AST 44 H (14-36) U/L Total Protein 4.9 L (6.3-8.2) g/dL Albumin 2.0 L (3.5-5.0) g/dL Microbiology - Last 24 Hours (Table) 03/02/19 20:55 Urine Culture - Final Urine,Clean Catch CT scan - abdomen: report reviewed (Computed tomography scan abdomen with findings of massive ascites, cirrhosis, splenomegaly, portal hypertension with gastroesophageal varices.) Assessment and Plan (1) Alcoholic liver disease Narrative/Plan: 54-year-old female with history of untreated hepatitis C and decompensated a lcoholic cirrhosis with known history of ascites. Patient reports adherence to low-sodium diet at home as well as diuretic therapy with Aldactone 25 mg daily and Lasix 40 mg daily. She has required paracentesis 3 times in the past. She currently reports abstinence from alcohol use. She denies any history of encephalopathy or previous GI/variceal bleed. Current Visit: No Status: Acute Code(s): K70.9 - ALCOHOLIC LIVER DISEASE, UNSPECIFIED SNOMED Code(s): 42500215 (2) Abdominal pain Narrative/Plan: Unclear if abdominal pain is related to distention or gastroenteritis, patient currently also receiving antibiotic prophylaxis for SBP with paracentesis pending. Current Visit: Yes Status: Acute Code(s): R10.9 - UNSPECIFIED ABDOMINAL PAIN SNOMED Code(s): 68384168 (3) Ascites Current Visit: Yes Status: Acute Code(s): R18.8 - OTHER ASCITES SNOMED Code(s): 270563544 (4) Nausea vomiting and diarrhea Current Visit: Yes Status: Acute Code(s): R11.2 - NAUSEA WITH VOMITING, UNSPECIFIED; R19.7 - DIARRHEA, UNSPECIFIED SNOMED Code(s): 2315973 Plan: Supportive care Sodium restricted diet Continue to monitor CBC, CMP Continue alcohol abstinence Stool culture pending Ultrasound paracentesis with studies ordered Continue Protonix daily Patient currently following with Dr. Mcdaniel in the outpatient setting, we'll need follow-up after discharge and continue 8 HCC screening as well as EGD for variceal screening Continue diuresis, at this time will increase Aldactone to 50 mg (25 mg twice a day) and continue Lasix 40 mg therapy Thank you for allowing us to participate in the care of the patient we will continue to follow
[2019-03-05] MEDS: MORPHINE SULFATE 4 MG/ML SYRINGE IV PRN ×6 (01:30→23:52)
[2019-03-05] MEDS: ALLOPURINOL 100 MG TAB PO SCH (07:46)
[2019-03-05] MEDS: FOLIC ACID 1 MG TAB PO SCH (07:46)
[2019-03-05] MEDS: SPIRONOLACTONE 25 MG TAB PO SCH (07:46)
[2019-03-05] MEDS: PANTOPRAZOLE 40 MG TABLET PO SCH (07:46)
[2019-03-05] MEDS: predniSONE 10 MG TAB PO SCH (07:46)
[2019-03-05] MEDS: FUROSEMIDE 40 MG TAB PO SCH (07:46)
[2019-03-05] MEDS: METOPROLOL TARTRATE 25 MG TAB PO SCH (07:46)
[2019-03-05 08:17] LABS: Calcium 7.9 mg/dL (8.4-10.2); Potassium 4.1 mmol/L (3.5-5.1)
[2019-03-05 09:04] LABS: Anisocytosis Slight; Basophils # (A) 0.1 k/uL (0-0.2); Basophils % (A) 1 %; Eosinophils # (A) 0.1 k/uL (0-0.7); Eosinophils % (A) 2 %; HCT 30.5 % (34.0-46.0); Hypochromasia Slight; Lymphocytes # (A) 1.7 k/uL (1.0-4.8); Lymphocytes % (A) 27 %; MCH 31.7 pg (25.0-35.0); MCHC 32.7 g/dL (31.0-37.0); Macrocytosis Slight; Mean Platelet Volume 8.4; Monocytes # (A) 0.6 k/uL (0-1.0); Monocytes % (A) 9 %; Neutrophils # (A) 3.8 k/uL (1.3-7.7); Neutrophils % (A) 60 %; Poikilocytosis Slight; RBC 3.15 m/uL (3.80-5.40); RDW 16.9 % (11.5-15.5); WBC 6.3 k/uL (3.8-10.6)
[2019-03-05 09:10] LABS: Platelet Count 79 k/uL (150-450)
[2019-03-05 10:26] LABS: INR 1.1 (<1.2); Prothrombin Time 11.8 sec (9.0-12.0)
--- NOTE | 2019-03-05 12:39 | P.PN ---
Subjective Progress Note Date: 03/05/19 Heidi Smith, is a 54-year-old female who presented to [facility] emergency room with worsening abdominal pain, ascites, patient was also complaining of nausea vomiting and diarrhea. She has known history of hepatitis C and liver cirrhosis she follows with Dr. Mcdaniel as outpatient her last paracentesis was about 6 weeks ago patient also has known history of chronic kidney disease stage IV, history of hypertension, history of chronic pain, patient was evaluated in emergency room and was admitted to medical floor gastroenterology consultation was requested C. diff toxin was negative in the emergency room. Patient also had evidence of urinary tract infection and was started on IV Rocephin. On 03/04/2019 patient was seen and examined on the medical floor he is alert and oriented 3 in no apparent distress she is complaining of abdominal distention with discomfort pain otherwise she denies any complaints there is no fever or chills no headache or dizziness no chest pain no shortness of breath no cough no nausea or vomiting no diarrhea and no urinary symptoms 03/05/2019 patient is scheduled for paracentesis today. Has a large amount of abdominal ascites. Still complaining of abdominal pain. No further episodes of diarrhea. Denies any nausea or vomiting. She's afebrile. Denies any chest pain. Does admit this some shortness of breath. She's on Rocephin for UTI. Stool for C. diff was negative. There are concerns of possible SBP. Infectious disease is following closely. hemoglobin is 10.0 platelets are 79 albumin 2.0. GI service did increase the Aldactone from 25 mg to 50 mg daily. Objective - Vital Signs Vital signs: Vital Signs Temp 98.3 F 03/05/19 08:00 Pulse 85 03/05/19 08:00 Resp 16 03/05/19 08:00 BP 154/99 03/05/19 08:00 Pulse Ox 95 03/05/19 08:00 Intake & Output 03/04/19 03/05/19 03/05/19 18:59 06:59 18:59 Intake Total 680 240 Balance 680 240 Intake: Intake, IV Titration 50 Amount cefTRIAXone 1 gm In 50 Sodium Chloride 0.9% 50 ml @ 100 mls/hr IVPB Q24HR [facility] Rx#:[id number] Oral 630 240 Other: Voiding Method Toilet Toilet # Voids 2 2 - Exam Head normocephalic Neck supple Lungs clear to auscultation bilaterally no wheezing or crackles Heart regular rate and rhythm S1-S2, no rub or gallop Abdomen is distended with fluid wave abdominal discomfort with palpation. Small scab from previous paracentesis drainage on the left. No evidence of erythema and drainage or infection. Extremities no edema Neuro alert and orientated to 3 - Labs CBC & Chem 7: 03/05/19 06:57 03/05/19 06:57 Labs: Abnormal Lab Results - Last 24 Hours (Table) 03/05/19 03/05/19 Range/Units 06:57 06:57 RBC 3.15 L (3.80-5.40) m/uL Hgb 10.0 L (11.4-16.0) gm/dL Hct 30.5 L (34.0-46.0) % RDW 16.9 H (11.5-15.5) % Plt Count 79 L (150-450) k/uL Chloride 114 H (98-107) mmol/L BUN 40 H (7-17) mg/dL Creatinine 1.65 H (0.52-1.04) mg/dL Calcium 7.9 L (8.4-10.2) mg/dL AST 46 H (14-36) U/L Total Protein 5.0 L (6.3-8.2) g/dL Albumin 2.0 L (3.5-5.0) g/dL Microbiology - Last 24 Hours (Table) 03/02/19 20:55 Urine Culture - Final Urine,Clean Catch Assessment and Plan Assessment: 1. gastroenteritis with nausea vomiting and diarrhea: Showing improvement. Stool for C. diff negative. Infectious disease is following. 2. Abdominal pain with large abdominal ascites: Concerns for SBP. Patient scheduled for paracentesis today. We'll await culture results and infectious disease recommendations. 3. UTI continue IV Rocephin. Urine culture showing no growth 4. History of alcoholic liver cirrhosis and hepatitis C 5. History of portal hypertension 6. History of chronic kidney disease stage III 7. History of anemia of chronic kidney disease 8. IgA nephropathy followed by nephrology outpatient. Maintained on prednisone 9. 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 Essential hypertension 11. Severe protein calorie malnutrition add ensure GI prophylaxis Protonix and DVT prophylaxis SCDs I performed an examination of the patient and discussed their management with the physician Telescope Repairer. I have reviewed the Physician Telescope Repairer's notes and agree with the documented findings and plan of care
--- NOTE | 2019-03-05 18:27 | P.PN ---
Subjective Progress Note Date: 03/05/19 Principal diagnosis: Decompensated alcoholic cirrhosis Patient lying in bed reporting she is tolerating diet. Still reporting abdominal distention. Plan is for paracentesis today. Objective - Vital Signs Vital signs: Vital Signs Temp 98.3 F 03/05/19 08:00 Pulse 85 03/05/19 08:00 Resp 16 03/05/19 08:00 BP 154/99 03/05/19 08:00 Pulse Ox 95 03/05/19 08:00 Intake & Output 03/04/19 03/05/19 03/05/19 18:59 06:59 18:59 Intake Total 680 240 Balance 680 240 Intake: Intake, IV Titration 50 Amount cefTRIAXone 1 gm In 50 Sodium Chloride 0.9% 50 ml @ 100 mls/hr IVPB Q24HR [facility] Rx#:[id number] Oral 630 240 Other: Voiding Method Toilet Toilet # Voids 2 2 - Exam On physical examination, patient appears comfortable in no apparent distress. HEAD: Normocephalic, atraumatic. EYES: No scleral icterus. No conjunctival injection. MOUTH: No lesions, tongue midline. NECK: Trachea midline, no gross abnormalities. CHEST: Clear to auscultation with no wheezing or rhonchi appreciated. HEART: Regular rate and rhythm. ABDOMEN: Soft, obese with distended abdomen and positive fluid wave. Bowel sounds are positive. No organomegaly. No guarding or rigidity. EXTREMITIES: No pedal edema. SKIN: No rashes, no jaundice. NEUROLOGIC: Alert and oriented x3. No focal deficits. - Labs CBC & Chem 7: 03/05/19 06:57 03/05/19 06:57 Labs: Abnormal Lab Results - Last 24 Hours (Table) 03/05/19 03/05/19 Range/Units 06:57 06:57 RBC 3.15 L (3.80-5.40) m/uL Hgb 10.0 L (11.4-16.0) gm/dL Hct 30.5 L (34.0-46.0) % RDW 16.9 H (11.5-15.5) % Plt Count 79 L (150-450) k/uL Chloride 114 H (98-107) mmol/L BUN 40 H (7-17) mg/dL Creatinine 1.65 H (0.52-1.04) mg/dL Calcium 7.9 L (8.4-10.2) mg/dL AST 46 H (14-36) U/L Total Protein 5.0 L (6.3-8.2) g/dL Albumin 2.0 L (3.5-5.0) g/dL Microbiology - Last 24 Hours (Table) 03/02/19 20:55 Urine Culture - Final Urine,Clean Catch Assessment and Plan (1) Alcoholic liver disease Narrative/Plan: 54-year-old female with history of untreated hepatitis C and decompensated alcoholic cirrhosis with known history of ascites. Patient reports adherence to low-sodium diet at home as well as diuretic therapy with Aldactone 25 mg daily and Lasix 40 mg daily. She has required paracentesis 3 times in the past. She currently reports abstinence from alcohol use. She denies any history of encephalopathy or previous GI/variceal bleed. Current Visit: No Status: Acute Code(s): K70.9 - ALCOHOLIC LIVER DISEASE, UNSPECIFIED SNOMED Code(s): 12252148 (2) Abdominal pain Narrative/Plan: Unclear if abdominal pain is related to distention or gastroenteritis, patient currently also receiving antibiotic prophylaxis for SBP with paracentesis pending. Current Visit: Yes Status: Acute Code(s): R10.9 - UNSPECIFIED ABDOMINAL PAIN SNOMED Code(s): 30349012 (3) Ascites Current Visit: Yes Status: Acute Code(s): R18.8 - OTHER ASCITES SNOMED Code(s): 562687014 (4) Nausea vomiting and diarrhea Current Visit: Yes Status: Acute Code(s): R11.2 - NAUSEA WITH VOMITING, UNSPECIFIED; R19.7 - DIARRHEA, UNSPECIFIED SNOMED Code(s): 2369805 Plan: Supportive care Sodium restricted diet Continue to monitor CBC, CMP Continue alcohol abstinence Stool culture pending, EIA for Clostridium difficile negative Ultrasound paracentesis with studies ordered Continue Protonix daily Patient currently following with Dr. Mcdaniel in the outpatient setting, we'll need follow-up after discharge and continue 8 HCC screening as well as EGD for variceal screening Continue diuresis, have increased Aldactone to 50 mg and continue Lasix 40 mg therapy Thank you for allowing us to participate in the care of the patient we will continue to follow
[2019-03-05 19:27] LABS: Appearance,BF Hazy; Color,BF Yellow; Nucleated Cells, Body Fluid 58 /uL; RBC, Body Fluid 898 /uL
[2019-03-05] MEDS: ONDANSETRON 4 MG/2 ML VIAL IVP PRN (19:32)
[2019-03-05 20:15] LABS: Mononuclear WBC,Body Fluid 71 %; Polynuclear WBC,Body Fluid 29 %; Total Cells Counted,Body Fluid 100
--- NOTE | 2019-03-05 21:53 | P.PN ---
Progress Note - Text Progress Note Date: 03/05/19 DATE OF SERVICE: 03/05/2019. REASON FOR FOLLOW UP: 1. Acute gastroenteritis. 2. Possible SBP. INTERVAL HISTORY: The patient remains to be afebrile. The patient's nausea, vomiting, diarrhea seemed to have resolved. Still complaining of some abdominal pain, but denies any w orsening. The patient denies any chest pain. No shortness of breath or cough. PHYSICAL EXAMINATION: Blood pressure 120/80 with a pulse of 55, temperature 97.9. She is 100% on room air. General description is a middle aged female, lying in bed in no distress. RESPIRATORY SYSTEM: Unlabored breathing. Clear to auscultation anteriorly. HEART: S1, S2. Regular rate and rhythm. ABDOMEN: Soft, nondistended. No guarding or rigidity. LABS: Reviewed DIAGNOSTIC IMPRESSION/PLAN: 1. Patient admitted to the hospital with acute nausea, vomiting and diarrhea with possible gastroenteritis, possible viral. Stool cultures not obtained. Stool for C difficile is negative, improve symptomatically 2. Patient with abdominal pain and ascites with concern for SBP for paracentesis today. Fluid should be sent for Gram stain and culture. Continue Rocephin at this point. 3. Positive UA and a question of possible urinary tract infection. Currently covered with Rocephin.
[2019-03-05] MEDS: HYDROcodone/APAP 10-325MG 1 EACH TAB PO PRN (22:13)
[2019-03-06 01:38] LABS: Total Protein, Body Fluid 450 mg/dL
[2019-03-06 02:48] LABS: Albumin, Fluid Source Ascites
[2019-03-06] MEDS: ONDANSETRON 4 MG/2 ML VIAL IVP PRN ×3 (05:00→19:20)
[2019-03-06] MEDS: MORPHINE SULFATE 4 MG/ML SYRINGE IV PRN ×5 (05:00→23:46)
[2019-03-06] MEDS: FOLIC ACID 1 MG TAB PO SCH (07:29)
[2019-03-06] MEDS: PANTOPRAZOLE 40 MG TABLET PO SCH (07:29)
[2019-03-06] MEDS: HYDROcodone/APAP 10-325MG 1 EACH TAB PO PRN (07:29)
[2019-03-06] MEDS: predniSONE 10 MG TAB PO SCH (07:29)
[2019-03-06] MEDS: FUROSEMIDE 40 MG TAB PO SCH (07:30)
[2019-03-06] MEDS: SPIRONOLACTONE 25 MG TAB PO SCH (07:30)
[2019-03-06] MEDS: METOPROLOL TARTRATE 25 MG TAB PO SCH (07:30)
[2019-03-06] MEDS: ALLOPURINOL 100 MG TAB PO SCH (07:30)
[2019-03-06 10:34] LABS: Albumin 1.9 g/dL (3.5-5.0); Calcium 7.5 mg/dL (8.4-10.2); Total Bilirubin 1.3 mg/dL (0.2-1.3); Total Protein 4.7 g/dL (6.3-8.2)
[2019-03-06 11:09] LABS: Basophils % (A) 0 %; Eosinophils # (A) 0.1 k/uL (0-0.7); Eosinophils % (A) 1 %; HCT 31.8 % (34.0-46.0); HGB 10.2 gm/dL (11.4-16.0); Lymphocytes # (A) 1.3 k/uL (1.0-4.8); Lymphocytes % (A) 18 %; Macrocytosis Slight; Mean Platelet Volume 8.1; Monocytes # (A) 0.6 k/uL (0-1.0); Monocytes % (A) 8 %; Neutrophils % (A) 71 %; Poikilocytosis Slight; RBC 3.27 m/uL (3.80-5.40); WBC 7.1 k/uL (3.8-10.6)
[2019-03-06 11:10] LABS: Platelet Count 78 k/uL (150-450)
[2019-03-06 12:39] LABS: Amorphous Sediment,Urine Rare /hpf; Appearance,Urine Clear (Clear); Bilirubin,Urine Negative (Negative); Blood,Urine Large (Negative); Budding Yeast,Urine Occasional /hpf; Color,Urine Yellow; Glucose,Urine (UA) Negative (Negative); Hyaline Casts,Urine 10 /lpf (0-2); Ketones,Urine Negative (Negative); Leukocyte Esterase,Urine Trace (Negative); Mucus,Urine Rare /hpf; Nitrite,Urine Negative (Negative); Protein,Urine 2+ (Negative); RBC,Urine >182 /hpf (0-5); Specific Gravity,Urine 1.011 (1.001-1.035); Squamous Epithelial Cell,Urine 2 /hpf (0-4); Urobilinogen,Urine <2.0 mg/dL (<2.0)
[2019-03-06] MEDS ORDERED: ACETAMINOPHEN TAB 500 MG TAB PO PRN (13:45)
--- NOTE | 2019-03-06 13:53 | P.PN ---
Subjective Progress Note Date: 03/06/19 Heidi Smith, is a 54-year-old female who presented to [facility] emergency room with worsening abdominal pain, ascites, patient was also complaining of nausea vomiting and diarrhea. She has known history of hepatitis C and liver cirrhosis she follows with Dr. Mcdaniel as outpatient her last paracentesis was about 6 weeks ago patient also has known history of chronic kidney disease stage IV, history of hypertension, history of chronic pain, patient was evaluated in emergency room and was admitted to medical floor gastroenterology consultation was requested C. diff toxin was negative in the emergency room. Patient also had evidence of urinary tract infection and was started on IV Rocephin. On 03/04/2019 patient was seen and examined on the medical floor he is alert and oriented 3 in no apparent distress she is complaining of abdominal distention with discomfort pain otherwise she denies any complaints there is no fever or chills no headache or dizziness no chest pain no shortness of breath no cough no nausea or vomiting no diarrhea and no urinary symptoms 03/05/2019 patient is scheduled for paracentesis today. Has a large amount of abdominal ascites. Still complaining of abdominal pain. No further episodes of diarrhea. Denies any nausea or vomiting. She's afebrile. Denies any chest pain. Does admit this some shortness of breath. She's on Rocephin for UTI. Stool for C. diff was negative. There are concerns of possible SBP. Infectious disease is following closely. hemoglobin is 10.0 platelets are 79 albumin 2.0. GI service did increase the Aldactone from 25 mg to 50 mg daily. 03/06/2019 patient had paracentesis completed yesterday 6.5 L removed. She is still complaining of abdominal pain. She reports that she feels that she still has fluid on her stomach. She's been having temps as high of 101.1 heart rate 102. She's currently on Rocephin. Case discussed with infectious disease. They are ordering blood cultures to for C. diff and urine culture. Per ID they were not impressed with the fluid from the ascites. Chest x-ray and influenza screening ordered. Patient did admit to having a slight cough. It appears that her diarrhea has started back up again. A repeat stool for C. diff was ordered by ID. Patient did have another episode of vomiting yesterday Objective - Vital Signs Vital signs: Vital Signs Temp 99.5 F 03/06/19 09:43 Pulse 102 H 03/06/19 06:55 Resp 18 03/06/19 06:55 BP 132/74 03/06/19 06:55 Pulse Ox 96 03/06/19 06:55 Intake & Output 03/05/19 03/06/19 03/06/19 18:59 06:59 18:59 Intake Total 480 222 444 Balance 480 222 444 Weight 111 kg Intake: Oral 480 222 444 Other: # Voids 3 1 2 - Exam Head normocephalic Neck supple Lungs clear to auscultation bilaterally no wheezing or crackles Heart regular rate and rhythm S1-S2, no rub or gallop Abdomen is distended, soft diffuse abdominal pain. Fluid wave still present Extremities no edema Neuro alert and orientated to 3 - Labs CBC & Chem 7: 03/06/19 09:07 03/06/19 09:07 Labs: Abnormal Lab Results - Last 24 Hours (Table) 03/06/19 03/06/19 03/06/19 Range/Units 09:07 09:07 12:15 RBC 3.27 L (3.80-5.40) m/uL Hgb 10.2 L (11.4-16.0) gm/dL Hct 31.8 L (34.0-46.0) % RDW 16.0 H (11.5-15.5) % Plt Count 78 L (150-450) k/uL Chloride 114 H (98-107) mmol/L BUN 37 H (7-17) mg/dL Creatinine 1.59 H (0.52-1.04) mg/dL Calcium 7.5 L (8.4-10.2) mg/dL AST 42 H (14-36) U/L Total Protein 4.7 L (6.3-8.2) g/dL Albumin 1.9 L (3.5-5.0) g/dL Urine Protein 2+ H (Negative) Urine Blood Large H (Negative) Ur Leukocyte Esterase Trace H (Negative) Urine RBC >182 H (0-5) /hpf Urine WBC 8 H (0-5) /hpf Amorphous Sediment Rare H (None) /hpf Hyaline Casts 10 H (0-2) /lpf Urine Mucus Rare H (None) /hpf Urine Yeast (Budding) Occasional H (None) /hpf Microbiology - Last 24 Hours (Table) 03/05/19 16:45 Gram Stain - Preliminary Ascites Fluid Body Fluid Culture - Preliminary Assessment and Plan Assessment: 1. gastroenteritis with nausea vomiting and diarrhea: First stool for C. diff was negative. Another stool for C. diff ordered by ID. ID is following 2. Abdominal pain with large abdominal ascites: Concerns for SBP. Patient had paracentesis completed with 6.5 L removed. Awaiting final culture results of the ascites fluid 3. UTI continue IV Rocephin. Urine culture showing no growth 4. History of alcoholic liver cirrhosis and hepatitis C 5. History of portal hypertension 6. History of chronic kidney disease stage III 7. History of anemia of chronic kidney disease 8. IgA nephropathy followed by nephrology outpatient. Maintained on prednisone 9. 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 Essential hypertension 11. Severe protein calorie malnutrition add ensure 12. Fever spikes. Discussed with infectious disease. Patient will have another urine culture blood culture, chest x-ray ordered and stool for C. diff. Also will add Tylenol 500 mg 1 by mouth every 8 hours as needed for fever GI prophylaxis Protonix and DVT prophylaxis SCDs I performed an examination of the patient and discussed their management with the physician Avionics Mechanic. I have reviewed the Physician Avionics Mechanic's notes and agree with the documented findings and plan of care
--- NOTE | 2019-03-06 14:37 | XR ---
EXAMINATION TYPE: XR chest 2V DATE OF EXAM: 03/06/2019 COMPARISON: Chest x-ray January 12, 2019. HISTORY: Fever. TECHNIQUE: Frontal and lateral views of the chest are obtained. FINDINGS: There is no focal air space opacity, pleural effusion, or pneumothorax seen. The cardiac silhouette size is within normal limits. The osseous structures are intact. IMPRESSION: No suspicious acute pulmonary process. No significant change from prior.
--- NOTE | 2019-03-06 18:14 | PN ---
PROGRESS NOTE DATE OF SERVICE: 03/06/2019 REASON FOR FOLLOWUP: Fever. INTERVAL HISTORY: The patient did spike a fever of 101.1 degrees Fahrenheit early this morning. The patient has been afebrile since then. Denies having any chest pain or shortness of breath or cough. Denies any worsening abdominal pain. She did have slight diarrhea and also mentioned some blood in the urine. PHYSICAL EXAMINATION: Blood pressure 128/75 with a pulse of 81, temperature 98.7. She is 97% on room air. General description is a middle-aged female lying in bed in no distress. RESPIRATORY SYSTEM: Unlabored breathing. Clear to auscultation anteriorly. HEART: S1, S2. Regular rate and rhythm. ABDOMEN: Soft. No guarding or rigidity or organomegaly. EXTREMITIES: No edema of the feet. LABS: Hemoglobin is 10.2, white count 7.1. BUN of 37, creatinine 1.59. DIAGNOSTIC IMPRESSION AND PLAN: Patient admitted to hospital with acute nausea, vomiting, diarrhea with concern about acute gastritis. That has resolved. Now with a new fever, with the source possibly urinary versus C difficile. Will check stool for C difficile. Continue blood culture and UA. Continue antibiotic Rocephin. Plan of care was discussed with the nurse practitioner for the admitting team. MMODL / IJN: [id number] /
[2019-03-07] MEDS: MORPHINE SULFATE 4 MG/ML SYRINGE IV PRN ×6 (03:53→23:26)
[2019-03-07] MEDS: ONDANSETRON 4 MG/2 ML VIAL IVP PRN ×3 (03:54→22:26)
[2019-03-07] MEDS: FUROSEMIDE 40 MG TAB PO SCH (07:25)
[2019-03-07] MEDS: predniSONE 10 MG TAB PO SCH (07:25)
[2019-03-07] MEDS: ALLOPURINOL 100 MG TAB PO SCH (07:25)
[2019-03-07] MEDS: SPIRONOLACTONE 25 MG TAB PO SCH (07:25)
[2019-03-07] MEDS: METOPROLOL TARTRATE 25 MG TAB PO SCH (07:25)
[2019-03-07] MEDS: FOLIC ACID 1 MG TAB PO SCH (07:25)
[2019-03-07] MEDS: PANTOPRAZOLE 40 MG TABLET PO SCH (07:25)
[2019-03-07 08:17] LABS: Albumin 1.8 g/dL (3.5-5.0); Calcium 7.7 mg/dL (8.4-10.2); Total Protein 4.7 g/dL (6.3-8.2)
[2019-03-07 08:43] LABS: Anisocytosis Slight; Basophils % (A) 0 %; Eosinophils # (A) 0.1 k/uL (0-0.7); Eosinophils % (A) 1 %; HCT 30.4 % (34.0-46.0); Lymphocytes # (A) 1.9 k/uL (1.0-4.8); Lymphocytes % (A) 23 %; MCH 31.5 pg (25.0-35.0); MCHC 32.7 g/dL (31.0-37.0); MCV 96.4 fL (80.0-100.0); Mean Platelet Volume 8.2; Monocytes # (A) 0.7 k/uL (0-1.0); Monocytes % (A) 8 %; Neutrophils # (A) 5.3 k/uL (1.3-7.7); Neutrophils % (A) 65 %; Poikilocytosis Slight; RBC 3.16 m/uL (3.80-5.40); RDW 16.6 % (11.5-15.5); WBC 8.1 k/uL (3.8-10.6)
[2019-03-07 08:54] LABS: Platelet Count 66 k/uL (150-450)
--- NOTE | 2019-03-07 09:06 | US ---
Therapeutic paracentesis. DATE OF EXAM: 03/05/2019 CLINICAL HISTORY: Ascites The procedure was discussed with the patient. The risks, complications, benefits, and alternatives we re discussed and any questions were answered. Informed consent was obtained. The patient was placed s upine on the ultrasound table and prepped and draped in the usual sterile fashion. All elements of maximal barrier technique were utilized. Under ultrasound guidance, access into the right lower quadrant was obtained, via the paracentesis catheter system and direct ultrasound guidanc e. Approximately 6.6 liters of straw-colored fluid was removed. The patient was stable throughout the pr ocedure and remained stable upon discharge from Department of Radiology. IMPRESSION: Successful therapeutic paracentesis under ultrasound guidance.
--- NOTE | 2019-03-07 12:59 | PN ---
PROGRESS NOTE DATE OF SERVICE: 03/07/2019 REASON FOR FOLLOWUP: Fever. INTERVAL HISTORY: The no further fever has been recorded as of yesterday. The patient complained of some abdominal pain, no worsening. No nausea, vomiting or any worsening diarrhea. Denies any burning or frequency of urine. PHYSICAL EXAMINATION: Blood pressure 152/85 with a pulse of 74 temperature 98.5. she is 97% on room air. General description is a middle-aged female lying in bed in no distress. RESPIRATORY SYSTEM: Unlabored breathing, clear to auscultation anteriorly. HEART: S1, S2. Regular rate and rhythm. ABDOMEN: Soft, no tenderness, no guarding. EXTREMITIES: No edema of the feet. LABS: Influenza serology was negative. BUN of 37, creatinine 1.73, hemoglobin is 10, white count of 8.1. Fluid culture so far negative. Repeat urine is pending. Repeat CTs were requested, not completed. IMPRESSION/PLAN: 1. Patient initially admitted to the hospital with acute nausea, vomiting, diarrhea, concern for possible gastritis that seems to have improved with stool for C difficile negative initially. 2. With concern for possible the patient is status post paracentesis with fluid cultures currently pending. She did have a new fever for which blood culture has been ordered. Those are currently pending. Continue with Rocephin while waiting for the culture to finalize. Continue supportive care. MMODL / IJN: [id number] /
--- NOTE | 2019-03-07 15:32 | P.PN ---
Subjective Progress Note Date: 03/07/19 Heidi Smith, is a 54-year-old female who presented to [facility] emergency room with worsening abdominal pain, ascites, patient was also complaining of nausea vomiting and diarrhea. She has known history of hepatitis C and liver cirrhosis she follows with Dr. Mcdaniel as outpatient her last paracentesis was about 6 weeks ago patient also has known history of chronic kidney disease stage IV, history of hypertension, history of chronic pain, patient was evaluated in emergency room and was admitted to medical floor gastroenterology consultation was requested C. diff toxin was negative in the emergency room. Patient also had evidence of urinary tract infection and was started on IV Rocephin. On 03/04/2019 patient was seen and examined on the medical floor he is alert and oriented 3 in no apparent distress she is complaining of abdominal distention with discomfort pain otherwise she denies any complaints there is no fever or chills no headache or dizziness no chest pain no shortness of breath no cough no nausea or vomiting no diarrhea and no urinary symptoms 03/05/2019 patient is scheduled for paracentesis today. Has a large amount of abdominal ascites. Still complaining of abdominal pain. No further episodes of diarrhea. Denies any nausea or vomiting. She's afebrile. Denies any chest pain. Does admit this some shortness of breath. She's on Rocephin for UTI. Stool for C. diff was negative. There are concerns of possible SBP. Infectious disease is following closely. hemoglobin is 10.0 platelets are 79 albumin 2.0. GI service did increase the Aldactone from 25 mg to 50 mg daily. 03/06/2019 patient had paracentesis completed yesterday 6.5 L removed. She is still complaining of abdominal pain. She reports that she feels that she still has fluid on her stomach. She's been having temps as high of 101.1 heart rate 102. She's currently on Rocephin. Case discussed with infectious disease. They are ordering blood cultures to for C. diff and urine culture. Per ID they were not impressed with the fluid from the ascites. Chest x-ray and influenza screening ordered. Patient did admit to having a slight cough. It appears that her diarrhea has started back up again. A repeat stool for C. diff was ordered by ID. Patient did have another episode of vomiting yesterday On 03/07/2019 patient is alert and oriented 3. Patient is currently resting comfortable in bed. Patient to have low-grade temp of 99.5. Infectious disease is following. Patient remains on antibiotic Rocephin. C. diff negative. At this time patient is resting comfortably bed denies chest pain or shortness breath. Patient denies nausea vomiting and diarrhea. Patient denies any urinary burning or frequency Objective - Vital Signs Vital signs: Vital Signs Temp 98.1 F 03/07/19 14:12 Pulse 76 03/07/19 14:12 Resp 16 03/07/19 14:12 BP 111/70 03/07/19 14:12 Pulse Ox 97 03/07/19 14:12 Intake & Output 03/06/19 03/07/19 03/07/19 18:59 06:59 18:59 Intake Total 888 218 Balance 888 218 Weight 111 kg Intake: Oral 888 218 Other: Voiding Method Toilet # Voids 1 1 2 - Exam Head normocephalic Neck supple Lungs clear to auscultation bilaterally no wheezing or crackles Heart regular rate and rhythm S1-S2, no rub or gallop Abdomen is distended, soft diffuse abdominal pain. Fluid wave still present Extremities no edema Neuro alert and orientated to 3 - Labs CBC & Chem 7: 03/07/19 07:01 03/07/19 07:01 Labs: Abnormal Lab Results - Last 24 Hours (Table) 03/07/19 03/07/19 Range/Units 07:01 07:01 RBC 3.16 L (3.80-5.40) m/uL Hgb 10.0 L (11.4-16.0) gm/dL Hct 30.4 L (34.0-46.0) % RDW 16.6 H (11.5-15.5) % Plt Count 66 L (150-450) k/uL Chloride 113 H (98-107) mmol/L BUN 37 H (7-17) mg/dL Creatinine 1.76 H (0.52-1.04) mg/dL Glucose 71 L (74-99) mg/dL Calcium 7.7 L (8.4-10.2) mg/dL AST 38 H (14-36) U/L Total Protein 4.7 L (6.3-8.2) g/dL Albumin 1.8 L (3.5-5.0) g/dL Microbiology - Last 24 Hours (Table) 03/06/19 12:22 Blood Culture - Preliminary Blood No Growth after 24 hours 03/05/19 16:45 Gram Stain - Preliminary Ascites Fluid Body Fluid Culture - Preliminary Assessment and Plan Assessment: 1. gastroenteritis with nausea vomiting and diarrhea: First stool for C. diff was negative. Another stool for C. diff ordered by ID. ID is following 2. Abdominal pain with large abdominal ascites: Concerns for SBP. Patient had paracentesis completed with 6.5 L removed. Awaiting final culture results of the ascites fluid 3. UTI continue IV Rocephin. Urine culture showing no growth 4. History of alcoholic liver cirrhosis and hepatitis C 5. History of portal hypertension 6. History of chronic kidney disease stage III 7. History of anemia of chronic kidney disease 8. IgA nephropathy followed by nephrology outpatient. Maintained on prednisone 9. 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 Essential hypertension 11. Severe protein calorie malnutrition add ensure 12. Fever spikes. Discussed with infectious disease. Patient will have another urine culture blood culture, chest x-ray ordered and stool for C. diff. Also will add Tylenol 500 mg 1 by mouth every 8 hours as needed for fever GI prophylaxis Protonix and DVT prophylaxis SCDs I performed an examination of the patient and discussed their management with the Nurse Practitioner. I have reviewed the Nurse Practitioner's notes and agree with the documented findings and plan of care
[2019-03-07] MEDS: HYDROcodone/APAP 10-325MG 1 EACH TAB PO PRN (22:23)
[2019-03-08 05:04] VITALS: RESP 16
[2019-03-08] MEDS: MORPHINE SULFATE 4 MG/ML SYRINGE IV PRN ×2 (05:06→12:34)
[2019-03-08 07:34] VITALS: BP 108/71; PULSE 73; TEMP 98.4
[2019-03-08] MEDS: HYDROcodone/APAP 10-325MG 1 EACH TAB PO PRN (07:44)
[2019-03-08] MEDS: PANTOPRAZOLE 40 MG TABLET PO SCH (07:44)
[2019-03-08 07:56] LABS: Albumin 1.8 g/dL (3.5-5.0); Calcium 7.4 mg/dL (8.4-10.2); Potassium 3.9 mmol/L (3.5-5.1); Total Bilirubin 0.8 mg/dL (0.2-1.3); Total Protein 4.5 g/dL (6.3-8.2)
[2019-03-08 08:15] LABS: Anisocytosis Slight; Basophils % (A) 0 %; Eosinophils # (A) 0.1 k/uL (0-0.7); Eosinophils % (A) 1 %; HCT 28.9 % (34.0-46.0); HGB 9.3 gm/dL (11.4-16.0); Lymphocytes # (A) 1.8 k/uL (1.0-4.8); Lymphocytes % (A) 23 %; MCH 30.9 pg (25.0-35.0); MCHC 32.1 g/dL (31.0-37.0); MCV 96.2 fL (80.0-100.0); Mean Platelet Volume 8.2; Monocytes # (A) 0.7 k/uL (0-1.0); Monocytes % (A) 9 %; Neutrophils % (A) 64 %; Poikilocytosis Slight; RDW 17.1 % (11.5-15.5); WBC 7.8 k/uL (3.8-10.6)
[2019-03-08 08:26] LABS: Platelet Count 77 k/uL (150-450)
[2019-03-08] MEDS: predniSONE 10 MG TAB PO SCH (08:50)
[2019-03-08] MEDS: FUROSEMIDE 40 MG TAB PO SCH (08:50)
[2019-03-08] MEDS: FOLIC ACID 1 MG TAB PO SCH (08:50)
[2019-03-08] MEDS: ALLOPURINOL 100 MG TAB PO SCH (08:50)
[2019-03-08] MEDS: METOPROLOL TARTRATE 25 MG TAB PO SCH (08:51)
[2019-03-08] MEDS: SPIRONOLACTONE 25 MG TAB PO SCH (08:51)
--- NOTE | 2019-03-08 12:13 | PN ---
PROGRESS NOTE DATE OF SERVICE: 03/08/2019 REASON FOR FOLLOWUP: Fever, UTI. INTERVAL HISTORY: The patient is currently afebrile. No fever has been recorded in the last 48 hours. The patient has been feeling better. The patient's abdominal pain is currently baseline with no worsening. No further nausea, vomiting, or any diarrhea and no urinary symptoms. PHYSICAL EXAMINATION: On examination, blood pressure is 108/71 with a pulse of 73, temperature 98.4. She is 97% on room air. General description is a middle aged female lying in bed in no distress. RESPIRATORY SYSTEM: Unlabored breathing, clear to auscultation anteriorly. HEART: S1, S2. Regular rate and rhythm. ABDOMEN: Soft, mildly distended. No guarding or rigidity. LABS: Hemoglobin 9.3, white count 7.8. BUN of 38, creatinine 1.67. Blood, urine and ascitic fluid cultures have been negative. DIAGNOSTIC IMPRESSION AND PLAN: 1. Patient admitted to the hospital with acute nausea, vomiting, diarrhea with concern for possible etiology that has resolved. 2. Patient did have ascites with concern for . However, the fluid did not look infected and culture has been negative. 3. Patient did have a new fever. Workup for the same has been negative. May consider short course of oral Ceftin on discharge and a close outpatient followup. MMODL / IJN: [id number] /
--- NOTE | 2019-03-08 13:36 | P.DS ---
Providers Date of admission: 03/02/19 23:06 Expected date of discharge: 03/08/19 Attending physician: Kel Mason Consults: 03/03/19 11:01 Consult Physician Routine Consulting Provider: Antione Rey Consult Reason/Comments: vomiting, diarrhea Do you want consulting provider notified?: Yes Primary care physician: Kel Isabella [facility] Course: Discharge diagnosis 1. gastroenteritis with nausea vomiting and diarrhea: Symptoms resolved. Tolerating diet. Stool for C. diff negative. 2. Abdominal pain with large abdominal ascites: SBP ruled out. Patient had paracentesis completed with 6.6 L removed. Ascites fluid negative so far. 3. UTI : Continue Ceftin for 7 more days. Urine culture results pending repeat urinalysis shows evidence of a UTI and likely a continuing source to her fevers. Fevers have not results. 4. History of alcoholic liver cirrhosis and hepatitis C 5. History of portal hypertension 6. History of chronic kidney disease stage III 7. History of anemia of chronic kidney disease. Hemoglobin has dropped to 9.3. Iron studies are pending. He will start patient on ferrous sulfate 325 mg twice a day. Recommend checking CBC in 1 week. 8. IgA nephropathy followed by nephrology outpatient. Maintained on prednisone 9. 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 Essential hypertension 11. Severe protein calorie malnutrition add ensure Hospital course Heidi Smith, is a 54-year-old female who presented to [facility] emergency room with worsening abdominal pain, ascites, patient was also complaining of nausea vomiting and diarrhea. She has known history of hepatitis C and liver cirrhosis she follows with Dr. Mcdaniel as outpatient her last paracentesis was about 6 weeks ago patient also has known history of chronic kidney disease stage IV, history of hypertension, history of chronic pain, patient was evaluated in emergency room and was admitted to medical floor gastroenterology consultation was requested C. diff toxin was negative in the emergency room. Patient also had evidence of urinary tract infection and was started on IV Rocephin. On 03/04/2019 patient was seen and examined on the medical floor he is alert and oriented 3 in no apparent distress she is complaining of abdominal distention with discomfort pain otherwise she denies any complaints there is no fever or chills no headache or dizziness no chest pain no shortness of breath no cough no nausea or vomiting no diarrhea and no urinary symptoms 03/05/2019 patient is scheduled for paracentesis today. Has a large amount of abdominal ascites. Still complaining of abdominal pain. No further episodes of diarrhea. Denies any nausea or vomiting. She's afebrile. Denies any chest pain. Does admit this some shortness of breath. She's on Rocephin for UTI. Stool for C. diff was negative. There are concerns of possible SBP. Infectious disease is following closely. hemoglobin is 10.0 platelets are 79 albumin 2.0. GI service did increase the Aldactone from 25 mg to 50 mg daily. 03/06/2019 patient had paracentesis completed yesterday 6.5 L removed. She is still complaining of abdominal pain. She reports that she feels that she still has fluid on her stomach. She's been having temps as high of 101.1 heart rate 102. She's currently on Rocephin. Case discussed with infectious disease. They are ordering blood cultures to for C. diff and urine culture. Per ID they were not impressed with the fluid from the ascites. Chest x-ray and influenza screening ordered. Patient did admit to having a slight cough. It appears that her diarrhea has started back up again. A repeat stool for C. diff was ordered by ID. Patient did have another episode of vomiting yesterday On 03/07/2019 patient is alert and oriented 3. Patient is currently resting comfortable in bed. Patient to have low-grade temp of 99.5. Infectious disease is following. Patient remains on antibiotic Rocephin. C. diff negative. At this time patient is resting comfortably bed denies chest pain or shortness breath. Patient denies nausea vomiting and diarrhea. Patient denies any urinary burning or frequency 03/08/2019 patient's symptoms have improved. She is afebrile. She's been cleared by infectious disease for discharge. Blood cultures have been negative chest x-ray negative stool for C. diff was negative.) Screening negative. The ascites fluid was essentially unremarkable. She'll continue Ceftin 500 mg twice a day for 7 days for UTI. Patient also follow-up with GI service in one week she'll likely need to have paracentesis scheduled in the outpatient setting. Patient's eager for discharge. Please refer to chart for any further details. I performed an examination of the patient and discussed their management with the physician It Risk And Assurance Manager. I have reviewed the Physician It Risk And Assurance Manager's notes and agree with the documented findings and plan of care Patient Condition at Discharge: Stable Plan - Discharge Summary Discharge Rx Participant: No New Discharge Prescriptions: New Spironolactone [Aldactone] 50 mg PO DAILY #30 tab Cefuroxime Axetil [Ceftin] 500 mg PO BID #14 tab Ferrous Sulfate [Feosol] 325 mg PO BID #60 tab Continue Metoprolol Tartrate 25 mg PO DAILY ALPRAZolam [Xanax] 0.25 mg PO BID PRN PRN Reason: Anxiety HYDROcodone/APAP 10-325MG [[place] 10-325] 1 tab PO BID Furosemide [Lasix] 40 mg PO DAILY Pantoprazole Sodium [Protonix] 40 mg PO DAILY Allopurinol [Zyloprim] 100 mg PO DAILY predniSONE 10 mg PO DAILY Folic Acid 1 mg PO DAILY Discontinued Spironolactone [Aldactone] 25 mg PO DAILY Cephalexin [Keflex] 500 mg PO Q6HR 3 Days #12 cap Discharge Medication List ALPRAZolam [Xanax] 0.25 mg PO BID PRN 09/13/18 [History] Metoprolol Tartrate 25 mg PO DAILY 09/13/18 [History] Furosemide [Lasix] 40 mg PO DAILY 11/21/18 [History] HYDROcodone/APAP 10-325MG [[place] 10-325] 1 tab PO BID 11/21/18 [History] Allopurinol [Zyloprim] 100 mg PO DAILY 01/12/19 [History] Pantoprazole Sodium [Protonix] 40 mg PO DAILY 01/12/19 [History] Folic Acid 1 mg PO DAILY 02/13/19 [History] predniSONE 10 mg PO DAILY 02/13/19 [History] Cefuroxime Axetil [Ceftin] 500 mg PO BID #14 tab 03/08/19 [Rx] Ferrous Sulfate [Feosol] 325 mg PO BID #60 tab 03/08/19 [Rx] Spironolactone [Aldactone] 50 mg PO DAILY #30 tab 03/08/19 [Rx] Follow up Appointment(s)/Referral(s): Kel Mason MD [Primary Care Provider] - 1 Week Delfin العلي MD [STAFF PHYSICIAN] - 1 Week Ambulatory/Diagnostic Orders: Complete Blood Count w/diff [LAB.AMB] Time Frame: 1 Week, Location: None Selected Activity/Diet/Wound Care/Special Instructions: Patient to contact physician office regarding a possible standing order for outp atient paracentesis and her medications through [facility] pharmacy. Diet: cardiac Activity: as tolerated Discharge Disposition: HOME SELF-CARE
[2019-03-08 18:17] LABS: Iron Saturation 18.06 (12.00-45.00)
== END 2019-03-08 14:36 | disposition home or self-care (01) | DRG 391 ==
LOC: EC 17:57 → 4SSUR 23:06
PROVIDERS: ADMIT Internal Medicine; ATTEND Internal Medicine
PROC: 0W9G3ZZ Drainage of Peritoneal Cavity, Percutaneous Approach (ICD-10-PCS; principal; 2019-03-02)
DX: K52.9 Noninfective gastroenteritis and colitis, unspecified (principal); E43 Unspecified severe protein-calorie malnutrition; N39.0 Urinary tract infection, site not specified; K76.6 Portal hypertension; N18.4 Chronic kidney disease, stage 4 (severe); I85.00 Esophageal varices without bleeding; Z68.41 Body mass index [BMI] 40.0-44.9, adult; K70.31 Alcoholic cirrhosis of liver with ascites; I12.9 Hypertensive chronic kidney disease with stage 1 through stage 4 chronic kidney disease, or unspecified chronic kidney disease; D63.1 Anemia in chronic kidney disease; B18.2 Chronic viral hepatitis C; D69.59 Other secondary thrombocytopenia; F17.200 Nicotine dependence, unspecified, uncomplicated; F32.9 Major depressive disorder, single episode, unspecified; F40.240 Claustrophobia; E66.9 Obesity, unspecified; G89.29 Other chronic pain; I86.4 Gastric varices; J44.9 Chronic obstructive pulmonary disease, unspecified; Z98.51 Tubal ligation status; Z79.52 Long term (current) use of systemic steroids; Z79.899 Other long term (current) drug therapy; Z88.8 Allergy status to other drugs, medicaments and biological substances; Z79.2 Long term (current) use of antibiotics; Z79.891 Long term (current) use of opiate analgesic; Z79.51 Long term (current) use of inhaled steroids
CPT/HCPCS: 36415; 49083; 71046; 74176; 80053; 81001; 82042; 82728; 83540; 83550; 83605; 83690; 84157; 85025; 85027; 85610; 87040; 87070; 87086; 87205; 87324; 87502; 89050; 96361; 96374; 96375; 96376; 99285

== ENCOUNTER 2019-04-02 08:49 | Observation (INO) | payer OTHER ==
[2019-04-02] MEDS ORDERED: MORPHINE SULFATE 4 MG/ML SYRINGE IV STA (09:09)
[2019-04-02] MEDS ORDERED: SODIUM CHLORIDE 0.9% 1,000 ML IV STA (09:09)
[2019-04-02] MEDS ORDERED: ONDANSETRON 4 MG/2 ML VIAL IVP STA (09:09)
--- NOTE | 2019-04-02 09:13 | ED ---
Abdominal Pain HPI - General Chief Complaint: Abdominal Pain Stated Complaint: wants paracentesis Time Seen by Provider: 04/02/19 08:56 Source: patient, RN notes reviewed, old records reviewed Mode of arrival: ambulatory Limitations: no limitations - History of Present Illness Initial Comments: Patient is a 54-year-old female with a history of stage IV kidney disease, hepatitis C with chronic ascites. She presents today with worsening swelling of her abdomen and her legs. She complains some shortness of breath. Patient reports that she is currently on Lasix and spironolactone. She states she has called her GI specialist within times to scheduling outpatient paracentesis and has been unsuccessful. Patient states that she feels as if she has a lot of fluid on her abdomen, worsening over the last week. She reports her last paracentesis was approximately one month ago, at that time a liters of fluid was removed. Patient reports that she follows with Dr. Pop and Dr. Angelo. Patient states that she has no significant chest pain at this time. She denies any nausea or vomiting. She reports she's had normal urine output. - Related Data Home Medications Medication Instructions Recorded Confirmed ALPRAZolam [Xanax] 0.25 mg PO BID PRN 09/13/18 04/02/19 Metoprolol Tartrate 25 mg PO DAILY 09/13/18 04/02/19 Furosemide [Lasix] 40 mg PO DAILY 11/21/18 04/02/19 HYDROcodone/APAP 10-325MG [[place] 1 tab PO BID 11/21/18 04/02/19 10-325] Allopurinol [Zyloprim] 100 mg PO DAILY 01/12/19 04/02/19 Pantoprazole Sodium [Protonix] 40 mg PO DAILY 01/12/19 04/02/19 Folic Acid 1 mg PO DAILY 02/13/19 04/02/19 predniSONE 10 mg PO DAILY 02/13/19 04/02/19 Sofosbuvir/Velpatas/Voxilaprev 1 tab PO DAILY 04/02/19 04/02/19 [Vosevi 400-100-100 mg Tablet] Previous Rx's Medication Instructions Recorded Ferrous Sulfate [Feosol] 325 mg PO BID #60 tab 03/08/19 Spironolactone [Aldactone] 50 mg PO DAILY #30 tab 03/08/19 Allergies Allergy/AdvReac Type Severity Reaction Status Date / Time bupropion [From Wellbutrin] AdvReac seizure Verified 04/02/19 09:09 Review of Systems ROS Statement: Those systems with pertinent positive or pertinent negative responses have been documented in the HPI. ROS Other: All systems not noted in ROS Statement are negative. Past Medical History Past Medical History: COPD, Hypertension, Liver Disease, Renal Disease Additional Past Medical History / Comment(s): Hep C, alcoholic liver cirrhosis, ascities, CKD stage IV, anemia, frequent diarrhea, low back pain from an injury. History of Any Multi-Drug Resistant Organisms: None Reported Past Surgical History: Tubal Ligation Additional Past Surgical History / Comment(s): Paracentesis's Past Anesthesia/Blood Transfusion Reactions: No Reported Reaction Additional Past Anesthesia/Blood Transfusion Reaction / Comment(s): claustrophobia Past Psychological History: Anxiety, Depression Smoking Status: Current every day smoker Past Alcohol Use History: None Reported Past Drug Use History: None Reported - Past Family History Father History Unknown: Yes Family Medical History: Cancer Additional Family Medical History / Comment(s): Unk type of cancer. Father is . Mother History Unknown: Yes Family Medical History: AFIB, Congestive Heart Failure (CHF), Myocardial Infarction (OR), Seizure Disorder Additional Family Medical History / Comment(s): Mother had a OR at the age of 52 yrs. She is . General Exam - General Exam Comments Initial Comments: Pleasant 54-year-old female. No significant distress. Limitations: no limitations General appearance: alert, in no apparent distress Head exam: Present: atraumatic, normocephalic, normal inspection Eye exam: Present: normal appearance, PERRL, EOMI. Absent: scleral icterus, conjunctival injection, periorbital swelling ENT exam: Present: normal exam, mucous membranes moist Neck exam: Present: normal inspection. Absent: tenderness, meningismus, lymphadenopathy Respiratory exam: Present: normal lung sounds bilaterally. Absent: respiratory distress, wheezes, rales, rhonchi, stridor Cardiovascular Exam: Present: regular rate, normal rhythm, normal heart sounds. Absent: systolic murmur, diastolic murmur, rubs, gallop, clicks GI/Abdominal exam: Present: soft, distended (very distended abdomen. ), normal bowel sounds. Absent: tenderness, guarding, rebound, rigid Extremities exam: Present: normal inspection, full ROM, normal capillary refill, other (4 plus bilateral peripheral edema.). Absent: tenderness, pedal edema, joint swelling, calf tenderness Back exam: Present: normal inspection Neurological exam: Present: alert, oriented X3, CN II-XII intact Psychiatric exam: Present: normal affect, normal mood Skin exam: Present: warm, dry, intact, normal color. Absent: rash Course Vital Signs 04/02/19 04/02/19 08:52 11:34 Temperature 98.6 F 98.5 F Pulse Rate 69 65 Respiratory 16 18 Rate Blood Pressure 173/96 167/97 O2 Sat by Pulse 99 99 Oximetry Medical Decision Making - Medical Decision Making Is a 54-year-old female presents emergency department today for evaluation for needing paracentesis. She complains of worsening swelling over abdomen for the past week. She's had chronic swelling over the past month since her last paracentesis. Patient states that she try to get an outpatient paracentesis scheduled was unsuccessful. Patient relates that she's had no fevers or chills. She denies bilateral lower extremity edema as well. She is on Lasix for spinal act on. Patient has hematuria but this is chronic for her. At this time patient's labwork was reviewed. Mildly unchanged. Anemia and kidney function appear to be stable. At this time Patient will be admitted for observation with consults interventional radiology for paracentesis. Patient understands treatment plan will comply. - Lab Data Result diagrams: 04/02/19 09:30 04/02/19 09:30 Lab Results 04/02/19 04/02/19 04/02/19 Range/Units 09:30 09:30 09:30 WBC 5.9 (3.8-10.6) k/uL RBC 3.37 L (3.80-5.40) m/uL Hgb 10.5 L (11.4-16.0) gm/dL Hct 32.2 L (34.0-46.0) % MCV 95.5 (80.0-100.0) fL MCH 31.1 (25.0-35.0) pg MCHC 32.6 (31.0-37.0) g/dL RDW 17.0 H (11.5-15.5) % Plt Count 79 L (150-450) k/uL Neutrophils % 69 % Lymphocytes % 22 % Monocytes % 6 % Eosinophils % 0 % Basophils % 0 % Neutrophils # 4.1 (1.3-7.7) k/uL Lymphocytes # 1.3 (1.0-4.8) k/uL Monocytes # 0.4 (0-1.0) k/uL Eosinophils # 0.0 (0-0.7) k/uL Basophils # 0.0 (0-0.2) k/uL Manual Slide Review Performed Poikilocytosis Slight Anisocytosis Slight PT (9.0-12.0) sec INR (<1.2) APTT (22.0-30.0) sec Sodium 143 (137-145) mmol/L Potassium 3.9 (3.5-5.1) mmol/L Chloride 112 H (98-107) mmol/L Carbon Dioxide 28 (22-30) mmol/L Anion Gap 3 mmol/L BUN 26 H (7-17) mg/dL Creatinine 1.21 H (0.52-1.04) mg/dL Est GFR (CKD-EPI)AfAm 59 (>60 ml/min/1.73 sqM) Est GFR (CKD-EPI)NonAf 52 (>60 ml/min/1.73 sqM) Glucose 81 (74-99) mg/dL Calcium 8.6 (8.4-10.2) mg/dL Total Bilirubin 1.3 (0.2-1.3) mg/dL AST 34 (14-36) U/L ALT 21 (9-52) U/L Alkaline Phosphatase 64 (38-126) U/L NT-Pro-B Natriuret Pep 908 pg/mL Total Protein 5.7 L (6.3-8.2) g/dL Albumin 2.4 L (3.5-5.0) g/dL Amylase 55 (30-110) U/L Lipase 294 (23-300) U/L Urine Color Urine Appearance (Clear) Urine pH (5.0-8.0) Ur Specific [place] (1.001-1.035) Urine Protein (Negative) Urine Glucose (UA) (Negative) Urine Ketones (Negative) Urine Blood (Negative) Urine Nitrite (Negative) Urine Bilirubin (Negative) Urine Urobilinogen (<2.0) mg/dL Ur Leukocyte Esterase (Negative) Urine RBC (0-5) /hpf Urine WBC (0-5) /hpf Ur Squamous Epith Cells (0-4) /hpf Urine Mucus (None) /hpf 04/02/19 04/02/19 Range/Units 09:30 09:30 WBC (3.8-10.6) k/uL RBC (3.80-5.40) m/uL Hgb (11.4-16.0) gm/dL Hct (34.0-46.0) % MCV (80.0-100.0) fL MCH (25.0-35.0) pg MCHC (31.0-37.0) g/dL RDW (11.5-15.5) % Plt Count (150-450) k/uL Neutrophils % % Lymphocytes % % Monocytes % % Eosinophils % % Basophils % % Neutrophils # (1.3-7.7) k/uL Lymphocytes # (1.0-4.8) k/uL Monocytes # (0-1.0) k/uL Eosinophils # (0-0.7) k/uL Basophils # (0-0.2) k/uL Manual Slide Review Poikilocytosis Anisocytosis PT 11.3 (9.0-12.0) sec INR 1.1 (<1.2) APTT 23.9 (22.0-30.0) sec Sodium (137-145) mmol/L Potassium (3.5-5.1) mmol/L Chloride (98-107) mmol/L Carbon Dioxide (22-30) mmol/L Anion Gap mmol/L BUN (7-17) mg/dL Creatinine (0.52-1.04) mg/dL Est GFR (CKD-EPI)AfAm (>60 ml/min/1.73 sqM) Est GFR (CKD-EPI)NonAf (>60 ml/min/1.73 sqM) Glucose (74-99) mg/dL Calcium (8.4-10.2) mg/dL Total Bilirubin (0.2-1.3) mg/dL AST (14-36) U/L ALT (9-52) U/L Alkaline Phosphatase (38-126) U/L NT-Pro-B Natriuret Pep pg/mL Total Protein (6.3-8.2) g/dL Albumin (3.5-5.0) g/dL Amylase (30-110) U/L Lipase (23-300) U/L Urine Color Yellow Urine Appearance Cloudy H (Clear) Urine pH 6.5 (5.0-8.0) Ur Specific [place] 1.013 (1.001-1.035) Urine Protein 3+ H (Negative) Urine Glucose (UA) Negative (Negative) Urine Ketones Negative (Negative) Urine Blood Large H (Negative) Urine Nitrite Negative (Negative) Urine Bilirubin Negative (Negative) Urine Urobilinogen <2.0 (<2.0) mg/dL Ur Leukocyte Esterase Trace H (Negative) Urine RBC >182 H (0-5) /hpf Urine WBC 6 H (0-5) /hpf Ur Squamous Epith Cells 3 (0-4) /hpf Urine Mucus Rare H (None) /hpf - Radiology Data Radiology results: report reviewed Normal chest x-ray. Disposition Clinical Impression: Chronic hepatitis C, Ascites, Hematuria Disposition: ADMITTED IP TO THIS [facility] Condition: Stable Is patient prescribed a controlled substance at d/c from ED?: No Referrals: Kel Mason MD [Primary Care Provider] - 1-2 days Time of Disposition: 12:03
[2019-04-02 09:46] LABS: Anisocytosis Slight; Basophils % (A) 0 %; Eosinophils % (A) 0 %; HCT 32.2 % (34.0-46.0); HGB 10.5 gm/dL (11.4-16.0); Lymphocytes # (A) 1.3 k/uL (1.0-4.8); Lymphocytes % (A) 22 %; MCH 31.1 pg (25.0-35.0); MCHC 32.6 g/dL (31.0-37.0); MCV 95.5 fL (80.0-100.0); Mean Platelet Volume 9.1; Monocytes # (A) 0.4 k/uL (0-1.0); Monocytes % (A) 6 %; Neutrophils # (A) 4.1 k/uL (1.3-7.7); Neutrophils % (A) 69 %; Poikilocytosis Slight; RBC 3.37 m/uL (3.80-5.40); WBC 5.9 k/uL (3.8-10.6)
[2019-04-02 09:52] LABS: INR 1.1 (<1.2); Partial Thromboplastin Time 23.9 sec (22.0-30.0); Prothrombin Time 11.3 sec (9.0-12.0)
[2019-04-02 10:00] LABS: Albumin 2.4 g/dL (3.5-5.0); Calcium 8.6 mg/dL (8.4-10.2); Potassium 3.9 mmol/L (3.5-5.1); Total Bilirubin 1.3 mg/dL (0.2-1.3); Total Protein 5.7 g/dL (6.3-8.2)
[2019-04-02 10:04] LABS: Appearance,Urine Cloudy (Clear); Bilirubin,Urine Negative (Negative); Blood,Urine Large (Negative); Color,Urine Yellow; Glucose,Urine (UA) Negative (Negative); Ketones,Urine Negative (Negative); Leukocyte Esterase,Urine Trace (Negative); Mucus,Urine Rare /hpf; Nitrite,Urine Negative (Negative); PH, Urine 6.5 (5.0-8.0); Protein,Urine 3+ (Negative); RBC,Urine >182 /hpf (0-5); Specific Gravity,Urine 1.013 (1.001-1.035); Squamous Epithelial Cell,Urine 3 /hpf (0-4); Urobilinogen,Urine <2.0 mg/dL (<2.0); WBC,Urine 6 /hpf (0-5)
--- NOTE | 2019-04-02 10:26 | XR ---
EXAMINATION TYPE: XR chest 2V DATE OF EXAM: 04/02/2019 COMPARISON: 03/06/2019 HISTORY: 54 year-old female abdominal pain and difficulty breathing TECHNIQUE: PA and lateral views FINDINGS: The cardiomediastinal silhouette, aorta, and pulmonary vasculature are within normal limits. Lungs an d pleural spaces are clear. IMPRESSION: No acute cardiopulmonary process.
[2019-04-02 10:40] LABS: Platelet Count 79 k/uL (150-450)
[2019-04-02] MEDS ORDERED: NALOXONE 0.4 MG/ML 1 ML VIAL IV PRN (12:03)
[2019-04-02] MEDS ORDERED: ACETAMINOPHEN TAB 325 MG TAB PO PRN (12:03)
[2019-04-02] MEDS ORDERED: IBUPROFEN 400 MG TAB PO PRN (12:03)
[2019-04-02] MEDS ORDERED: KETOROLAC 30 MG/ML 1 ML VIAL IVP PRN (12:03)
[2019-04-02] MEDS ORDERED: ALPRAZolam 0.25 MG TAB PO STA (13:14)
[2019-04-02] MEDS: MORPHINE SULFATE 4 MG/ML SYRINGE IV PRN ×3 (14:37→22:35)
--- NOTE | 2019-04-02 15:10 | P.HPIM ---
History of Present Illness H&P Date: 04/02/19 This is a 54-year-old female patient who presented with complaints of increased swelling to abdomen and lower extremities. Patient has a known past medical history of hepatitis C with liver cirrhosis, chronic kidney disease stage IV, hypertension, chronic pain and anemia. Patient also reports that she's been having shortness of breath likely due to the increase abdominal swelling. Chest x-ray with showing no acute cardiopulmonary process. EKG completed showing normal sinus rhythm with normal EKG. Patient's last paracentesis approximately 1 month ago. Patient reports she has been unable to arrange outpatient paracentesis through the GI office. Interventional radiology has been consulte d. Paracentesis to be arranged. At this time patient denies any chest pain or shortness breath. Patient does complain of abdominal pain some nausea. Patient denies any urinary burning or frequency Past Medical History Past Medical History: COPD, GERD/Reflux, Hypertension, Liver Disease, Renal Disease Additional Past Medical History / Comment(s): Pt recently admitted to [facility] on 03/02/19 with gastroenteritis/nausea/vomiting/diarrhea/abdominal pain/ascities/UTI and had negative Cdiff. Other hx: Hep C, alcoholic liver cirrhosis, portal HTN, abdominal ascities, IGa nephropathy, thromobocytopenia, CKD stage IV, anemia, severe protein calorie malnutrition, frequent diarrhea, low back pain from an injury. History of Any Multi-Drug Resistant Organisms: None Reported Past Surgical History: Tubal Ligation Additional Past Surgical History / Comment(s): Paracentesis's Past Anesthesia/Blood Transfusion Reactions: No Reported Reaction Additional Past Anesthesia/Blood Transfusion Reaction / Comment(s): cl austrophobia Smoking Status: Current every day smoker - Past Family History Father History Unknown: Yes Family Medical History: Cancer Additional Family Medical History / Comment(s): Unk type of cancer. Father is . Mother History Unknown: Yes Family Medical History: AFIB, Congestive Heart Failure (CHF), Myocardial Infarction (SC), Seizure Disorder Additional Family Medical History / Comment(s): Mother had a SC at the age of 52 yrs. She is . Medications and Allergies Home Medications Medication Instructions Recorded Confirmed Type ALPRAZolam [Xanax] 0.25 mg PO BID PRN 09/13/18 04/02/19 History Metoprolol Tartrate 25 mg PO DAILY 09/13/18 04/02/19 History Furosemide [Lasix] 40 mg PO DAILY 11/21/18 04/02/19 History HYDROcodone/APAP 10-325MG [[place] 1 tab PO BID 11/21/18 04/02/19 History 10-325] Allopurinol [Zyloprim] 100 mg PO DAILY 01/12/19 04/02/19 History Pantoprazole Sodium [Protonix] 40 mg PO DAILY 01/12/19 04/02/19 History Folic Acid 1 mg PO DAILY 02/13/19 04/02/19 History predniSONE 10 mg PO DAILY 02/13/19 04/02/19 History Ferrous Sulfate [Feosol] 325 mg PO BID #60 tab 03/08/19 04/02/19 Rx Spironolactone [Aldactone] 50 mg PO DAILY #30 tab 03/08/19 04/02/19 Rx Sofosbuvir/Velpatas/Voxilaprev 1 tab PO DAILY 04/02/19 04/02/19 History [Vosevi 400-100-100 mg Tablet] Allergies Allergy/AdvReac Type Severity Reaction Status Date / Time bupropion [From Wellbutrin] AdvReac seizure Verified 04/02/19 09:09 Physical Exam Vitals: Vital Signs Temp Pulse Resp BP Pulse Ox 04/02/19 14:24 98.1 F 63 18 155/92 98 04/02/19 11:34 98.5 F 65 18 167/97 99 04/02/19 08:52 98.6 F 69 16 173/96 99 Intake and Output 04/02/19 04/02/19 04/02/19 06:59 14:59 22:59 Other: Weight 107.955 kg Results CBC & Chem 7: 04/02/19 09:30 04/02/19 09:30 Labs: Abnormal Lab Results - Last 24 Hours (Table) 04/02/19 04/02/19 04/02/19 Range/Units 09:30 09:30 09:30 RBC 3.37 L (3.80-5.40) m/uL Hgb 10.5 L (11.4-16.0) gm/dL Hct 32.2 L (34.0-46.0) % RDW 17.0 H (11.5-15.5) % Plt Count 79 L (150-450) k/uL Chloride 112 H (98-107) mmol/L BUN 26 H (7-17) mg/dL Creatinine 1.21 H (0.52-1.04) mg/dL Total Protein 5.7 L (6.3-8.2) g/dL Albumin 2.4 L (3.5-5.0) g/dL Urine Appearance Cloudy H (Clear) Urine Protein 3+ H (Negative) Urine Blood Large H (Negative) Ur Leukocyte Esterase Trace H (Negative) Urine RBC >182 H (0-5) /hpf Urine WBC 6 H (0-5) /hpf Urine Mucus Rare H (None) /hpf Thrombosis Risk Factor Assmnt - Choose All That Apply Any of the Below Risk Factors Present?: Yes Each Factor Represents 1 point: Abnormal pulmonary function (COPD), Age 41-60 years, Obesity (BMI >25) Other Risk Factors: No Other congenital or acquired thrombophilia - If yes, enter type in comment: No Thrombosis Risk Factor Assessment Total Risk Factor Score: 3 Thrombosis Risk Factor Assessment Level: Moderate Risk
--- NOTE | 2019-04-02 16:49 | US ---
EXAMINATION TYPE: US venous doppler duplex LE BI DATE OF EXAM: 04/02/2019 4:08 PM COMPARISON: 09/13/2018 CLINICAL HISTORY: r/o DVT. SIDE PERFORMED: Bilateral TECHNIQUE: The lower extremity deep venous system is examined utilizing real time linear array sonog radha with graded compression, doppler sonography and color-flow sonography. VESSELS IMAGED: Common Femoral Vein Deep Femoral Vein Greater Saphenous Vein * Femoral Vein Popliteal Vein Small Saphenous Vein * Proximal Calf Veins (* superficial vessels) Bilateral ankle edema channels are noted bilaterally. Right Leg: Negative for DVT. Complex right popliteal fossa cyst is noted measuring 4.7 x 2.4 x 1.5cm . Left Leg: Negative for DVT IMPRESSION: 1. Bilateral lower extremity ultrasound negative for deep venous thrombosis. 2. Right popliteal cyst
[2019-04-02] MEDS: SODIUM CHLORIDE 0.9% 1,000 ML IV SCH (17:15)
[2019-04-02] MEDS: FERROUS SULFATE 325 MG TAB PO SCH (21:28)
[2019-04-02] MEDS: ALPRAZolam 0.25 MG TAB PO PRN (21:29)
[2019-04-03] MEDS: ONDANSETRON 4 MG/2 ML VIAL IVP PRN (02:43)
[2019-04-03] MEDS: MORPHINE SULFATE 4 MG/ML SYRINGE IV PRN ×4 (02:44→19:08)
[2019-04-03] MEDS: PANTOPRAZOLE 40 MG/10 ML VIAL IV SCH (08:43)
[2019-04-03] MEDS: ALPRAZolam 0.25 MG TAB PO PRN ×2 (08:43→20:12)
[2019-04-03] MEDS: METOPROLOL TARTRATE 25 MG TAB PO SCH (08:44)
[2019-04-03] MEDS: NICOTINE 14MG/24HR PATCH TRANSDERM SCH (08:44)
[2019-04-03] MEDS: [UNRECOGNIZED DRUG - OTHER] PO SCH (08:44)
[2019-04-03] MEDS ORDERED: PANTOPRAZOLE 40 MG TABLET PO SCH (09:00)
[2019-04-03 09:33] LABS: Anisocytosis Slight; Basophils % (A) 1 %; Eosinophils # (A) 0.1 k/uL (0-0.7); Eosinophils % (A) 2 %; HGB 9.8 gm/dL (11.4-16.0); Hypochromasia Slight; Lymphocytes # (A) 1.6 k/uL (1.0-4.8); Lymphocytes % (A) 28 %; MCH 31.2 pg (25.0-35.0); MCHC 31.7 g/dL (31.0-37.0); MCV 98.4 fL (80.0-100.0); Macrocytosis Slight; Monocytes # (A) 0.5 k/uL (0-1.0); Monocytes % (A) 8 %; Neutrophils # (A) 3.4 k/uL (1.3-7.7); Neutrophils % (A) 60 %; Poikilocytosis Slight; RBC 3.15 m/uL (3.80-5.40); RDW 17.4 % (11.5-15.5); WBC 5.7 k/uL (3.8-10.6)
[2019-04-03 09:50] LABS: Albumin 2.1 g/dL (3.5-5.0); Calcium 7.8 mg/dL (8.4-10.2); Potassium 3.9 mmol/L (3.5-5.1); Total Bilirubin 1.1 mg/dL (0.2-1.3); Total Protein 5.3 g/dL (6.3-8.2)
[2019-04-03 09:57] LABS: Platelet Count 69 k/uL (150-450)
[2019-04-03] MEDS: HYDROcodone/APAP 10-325MG 1 EACH TAB PO PRN ×2 (11:36→22:22)
[2019-04-03] MEDS: SPIRONOLACTONE 25 MG TAB PO SCH (11:36)
[2019-04-03] MEDS: ALLOPURINOL 100 MG TAB PO SCH (11:37)
[2019-04-03] MEDS: predniSONE 10 MG TAB PO SCH (11:37)
[2019-04-03] MEDS: FERROUS SULFATE 325 MG TAB PO SCH ×2 (11:37→20:12)
[2019-04-03] MEDS: FUROSEMIDE 40 MG TAB PO SCH (11:37)
[2019-04-03] MEDS: FOLIC ACID 1 MG TAB PO SCH (11:37)
--- NOTE | 2019-04-03 12:00 | US ---
Therapeutic paracentesis. DATE OF EXAM: 04/03/2019 CLINICAL HISTORY: Ascites The procedure was discussed with the patient. The risks, complications, benefits, and alternatives we re discussed and any questions were answered. Informed consent was obtained. The patient was placed s upine on the ultrasound table and prepped and draped in the usual sterile fashion. All elements of maximal barrier technique were utilized. Under ultrasound guidance, access into the right lower quadrant was obtained, via the paracentesis catheter system and direct ultrasound guidanc e. Approximately 7.05 liters of straw-colored fluid was removed. The patient was stable throughout the p rocedure and remained stable upon discharge from Department of Radiology. IMPRESSION: Successful therapeutic paracentesis under ultrasound guidance.
[2019-04-03 13:12] VITALS: BMI 41.3
--- NOTE | 2019-04-03 13:56 | P.CONS ---
History of Present Illness - Reason for Consult Consult date: 04/03/19 Liver cirrhosis Requesting physician: Kel Mason - Chief Complaint Lower extremity edema and abdominal distention - History of Present Illness 54-year-old female history of chronic HCV presently on antiviral therapy, alcohol liver cirrhosis admitted with worsening abdominal distention ascites and lower extremity edema. Patient underwent therapeutic paracentesis today 7 L removed. Denies fever chills hematemesis hematochezia over melena. Home medications include Lasix 40 mg daily and Aldactone 50 mg daily. Lower extremity Doppler studies negative for DVT. Hemoglobin 9.8. White count 5.7. Platelets 69,000. BUN 23. Creatinine 1.1. Total bilirubin transaminases within normal limits. Review of Systems Constitutional: Denies fever, chills, sweats, weight gain, or loss. HEENT: Negative for migraines, blurred vision or loss, earaches, drainage, tinnitus, oral mucosal lesions, dysphagia, or odynophagia. CARDIAC: Negative for chest pain, arrhythmias, or palpitation. RESPIRATORY: Negative for shortness of breath, hemoptysis, cough, or sputum production. GI: See HPI for pertinent findings. : Negative for hematuria, urgency, frequency, polyuria, or dysuria. GYNc: Denies possibility of . Negative vaginal discharge. MUSCULOSKELETAL: Negative for muscle aches, swelling, arthritis, and arthralgias. NEUROLOGIC: Negative for stroke or TIA. ENDOCRINE: Negative for thyroid problems. SKIN: Increased lower extremity edema. Negative for rash or itching. PSYCHIATRIC: Negative history for depression and anxiety Past Medical History Past Medical History: COPD, GERD/Reflux, Hypertension, Liver Disease, Renal Disease Additional Past Medical History / Comment(s): Pt recently admitted to [facility] on 03/02/19 with gastroenteritis/nausea/vomiting/diarrhea/abdominal pain/ascities/UTI and had negative Cdiff. Other hx: Hep C, alcoholic liver cirrhosis, portal HTN, abdominal ascities, IGa nephropathy, thromobocytopenia, CKD stage IV, anem ia, severe protein calorie malnutrition, frequent diarrhea, low back pain from an injury. History of Any Multi-Drug Resistant Organisms: None Reported Past Surgical History: Tubal Ligation Additional Past Surgical History / Comment(s): Paracentesis's Past Anesthesia/Blood Transfusion Reactions: No Reported Reaction Additional Past Anesthesia/Blood Transfusion Reaction / Comm: claustrophobia Smoking Status: Current every day smoker - Past Family History Father History Unknown: Yes Family Medical History: Cancer Additional Family Medical History / Comment(s): Unk type of cancer. Father is . Mother History Unknown: Yes Family Medical History: AFIB, Congestive Heart Failure (CHF), Myocardial Infarction (SC), Seizure Disorder Additional Family Medical History / Comment(s): Mother had a SC at the age of 52 yrs. She is . Medications and Allergies Home Medications Medication Instructions Recorded Confirmed Type ALPRAZolam [Xanax] 0.25 mg PO BID PRN 09/13/18 04/02/19 History Metoprolol Tartrate 25 mg PO DAILY 09/13/18 04/02/19 History Furosemide [Lasix] 40 mg PO DAILY 11/21/18 04/02/19 History HYDROcodone/APAP 10-325MG [[place] 1 tab PO BID 11/21/18 04/02/19 History 10-325] Allopurinol [Zyloprim] 100 mg PO DAILY 01/12/19 04/02/19 History Pantoprazole Sodium [Protonix] 40 mg PO DAILY 01/12/19 04/02/19 History Folic Acid 1 mg PO DAILY 02/13/19 04/02/19 History predniSONE 10 mg PO DAILY 02/13/19 04/02/19 History Ferrous Sulfate [Feosol] 325 mg PO BID #60 tab 03/08/19 04/02/19 Rx Spironolactone [Aldactone] 50 mg PO DAILY #30 tab 03/08/19 04/02/19 Rx Sofosbuvir/Velpatas/Voxilaprev 1 tab PO DAILY 04/02/19 04/02/19 History [Vosevi 400-100-100 mg Tablet] Allergies Allergy/AdvReac Type Severity Reaction Status Date / Time bupropion [From Wellbutrin] AdvReac seizure Verified 04/02/19 09:09 Physical Exam Vitals: Vital Signs Temp Pulse Pulse Resp BP BP Pulse Ox 04/03/19 12:31 98.6 F 73 17 151/90 97 04/03/19 10:30 80 18 170/84 97 04/03/19 10:21 76 18 167/82 97 04/03/19 10:02 74 18 178/92 97 04/03/19 09:47 88 16 175/91 98 04/03/19 09:28 98 16 161/85 97 04/03/19 09:06 98.3 F 91 16 179/85 97 04/03/19 05:00 98.2 F 74 18 159/83 94 L 04/03/19 00:20 76 18 04/02/19 21:00 98.1 F 76 18 147/82 98 04/02/19 16:10 98.1 F 63 18 169/95 98 04/02/19 14:24 98.1 F 63 18 155/92 98 Intake and Output 04/02/19 04/03/19 04/03/19 22:59 06:59 14:59 Intake Total 80 160 Balance 80 160 Intake: Intake, IV Titration 80 160 Amount Sodium Chloride 0.9% 1, 80 160 000 ml @ 20 mls/hr IV . Q24H [facility] Rx#:[id number] Other: Voiding Method Toilet # Voids 1 1 Weight 106 kg 106 kg General appearance: The patient is alert, oriented, in no acute distress. HET: Head is normocephalic and atraumatic. Pupils are equal and reactive. Oropharynx is clear without lesions. Neck: Supple without lymphadenopathy. Trachea midline. Heart: S1 S2. Regular rate and rhythm. Lungs: No crackles or wheezes are heard. Abdomen: Soft, nontender, nondistended with bowel sounds. No peritoneal signs. No palpable organomegaly or masses. Extremities: +2 bilateral lower extremity edema. Neurological: No focal deficits. Strength and sensation are grossly intact. Results CBC & Chem 7: 04/03/19 08:50 04/03/19 08:50 Labs: Abnormal Lab Results - Last 24 Hours (Table) 04/03/19 04/03/19 Range/Units 08:50 08:50 RBC 3.15 L (3.80-5.40) m/uL Hgb 9.8 L (11.4-16.0) gm/dL Hct 31.0 L (34.0-46.0) % RDW 17.4 H (11.5-15.5) % Plt Count 69 L (150-450) k/uL Chloride 110 H (98-107) mmol/L BUN 23 H (7-17) mg/dL Creatinine 1.19 H (0.52-1.04) mg/dL Glucose 107 H (74-99) mg/dL Calcium 7.8 L (8.4-10.2) mg/dL Total Protein 5.3 L (6.3-8.2) g/dL Albumin 2.1 L (3.5-5.0) g/dL Assessment and Plan (1) Alcoholic cirrhosis of liver with ascites Current Visit: Yes Status: Acute Code(s): K70.31 - ALCOHOLIC CIRRHOSIS OF LIVER WITH ASCITES SNOMED Code(s): 881883861 (2) Portal hypertension Current Visit: Yes Status: Acute Code(s): K76.6 - PORTAL HYPERTENSION SNOMED Code(s): 48593437 (3) Chronic hepatitis C Current Visit: Yes Status: Acute Code(s): B18.2 - CHRONIC VIRAL HEPATITIS C SNOMED Code(s): 698699891 (4) History of ETOH abuse Current Visit: No Status: Acute Code(s): Z87.898 - PERSONAL HISTORY OF OTHER SPECIFIED CONDITIONS SNOMED Code(s): 230079590 Plan: 1. Continue with present home medications. Patient has been set up for outpatient paracentesis every 3-4 weeks as needed. Patient has a follow-up GI appointment in [address] العلي he will discuss possible adjustments of her diuretics. Low-salt diet. Discharge today per medicine. Thank you for this kind referral and the opportunity to participate in the care of your patient. This consultation was discussed with Dr. Mcdaniel. The impression and plan of care have been directed as dictated.
--- NOTE | 2019-04-03 14:06 | P.PN ---
Subjective Progress Note Date: 04/03/19 This is a 54-year-old female patient who presented with complaints of increased swelling to abdomen and lower extremities. Patient has a known past medical history of hepatitis C with liver cirrhosis, chronic kidney disease stage IV, hypertension, chronic pain and anemia. Patient also reports that she's been having shortness of breath likely due to the increase abdominal swelling. Chest x-ray with showing no acute cardiopulmonary process. EKG completed showing normal sinus rhythm with normal EKG. Patient's last paracentesis approximately 1 month ago. Patient reports she has been unable to arrange outpatient paracentesis through the GI office. Interventional radiology has been consulted. Paracentesis to be arranged. At this time patient denies any chest pain or shortness breath. Patient does complain of abdominal pain some nausea. Patient denies any urinary burning or frequency On 04/03/2019 patient is alert and oriented 3. Patient is status post paracentesis of 7 L of fluid. Patient still having some abdominal discomfort. GI services are following. Patient to be set up with outpatient paracentesis. Order given to patient. At this time patient denies chest pain or shortness of breath. Patient having some abdominal discomfort. Patient denies nausea vomiting or diarrhea. Patient denies any urinary burning or frequency Objective - Vital Signs Vital signs: Vital Signs Temp 98.6 F 04/03/19 12:31 Pulse 73 04/03/19 12:31 Resp 17 04/03/19 12:31 BP 151/90 04/03/19 12:31 Pulse Ox 97 04/03/19 12:31 Intake & Output 04/02/19 04/03/19 04/03/19 18:59 06:59 18:59 Intake Total 240 Balance 240 Weight 107.955 kg 106 kg 106 kg Intake: Intake, IV Titration 240 Amount Sodium Chloride 0.9% 1, 240 000 ml @ 20 mls/hr IV . Q24H [facility] Rx#:[id number] Other: Voiding Method Toilet # Voids 1 - Exam Head normocephalic Neck supple Lungs clear to auscultation bilaterally no wheezing or crackles Heart regular rate and rhythm S1-S2, no rub or gallop Abdomen is rounded tender to palpation Extremities no edema Neuro alert and orientated to 3 - Labs CBC & Chem 7: 04/03/19 08:50 04/03/19 08:50 Labs: Abnormal Lab Results - Last 24 Hours (Table) 04/03/19 04/03/19 Range/Units 08:50 08:50 RBC 3.15 L (3.80-5.40) m/uL Hgb 9.8 L (11.4-16.0) gm/dL Hct 31.0 L (34.0-46.0) % RDW 17.4 H (11.5-15.5) % Plt Count 69 L (150-450) k/uL Chloride 110 H (98-107) mmol/L BUN 23 H (7-17) mg/dL Creatinine 1.19 H (0.52-1.04) mg/dL Glucose 107 H (74-99) mg/dL Calcium 7.8 L (8.4-10.2) mg/dL Total Protein 5.3 L (6.3-8.2) g/dL Albumin 2.1 L (3.5-5.0) g/dL Assessment and Plan Assessment: 1. Increased abdominal distention and shortness of breath secondary to abdominal ascites. Status post paracentesis 7 L removed. Per GI services patient has been set up for outpatient paracentesis every 3-4 weeks as needed. patient to follow with GI services 2 days. 2. Increased swelling to lower extremities. Venous Doppler completed showing negative for DVT 3. History of chronic pain 4. History liver cirrhosis 5. History of essential hypertension 6. Chronic kidney disease stage III 7. History of hepatitis C 8. Anemia of chronic kidney disease 9. 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 Thrombocytopenia secondary to liver disease 11. Anxiety disorder maintained on Xanax 12. Nicotine dependence. Discussed smoking cessation greater than 3 minutes. Nicotine patch added DVT prophylaxis SCDs due to thrombocytopenia. GI prophylaxis Protonix I performed an examination of the patient and discussed their management with the Nurse Practitioner. I have reviewed the Nurse Practitioner's notes and agree with the documented findings and plan of care
[2019-04-03] MEDS: ALBUMIN HUMAN 25% 50 ML in EMPTY BAG 1 BAG IVPB SCH ×2 (15:08→17:07)
[2019-04-03] MEDS: SODIUM CHLORIDE 0.9% 1,000 ML IV SCH (15:18)
[2019-04-03 21:02] VITALS: PULSE 81; RESP 16; TEMP 98.2
[2019-04-04] MEDS: MORPHINE SULFATE 4 MG/ML SYRINGE IV PRN ×2 (04:18→10:28)
[2019-04-04] MEDS: ONDANSETRON 4 MG/2 ML VIAL IVP PRN (04:20)
[2019-04-04 04:51] VITALS: BP 145/78
[2019-04-04] MEDS: FERROUS SULFATE 325 MG TAB PO SCH (07:24)
[2019-04-04] MEDS: PANTOPRAZOLE 40 MG/10 ML VIAL IV SCH (07:24)
[2019-04-04] MEDS: NICOTINE 14MG/24HR PATCH TRANSDERM SCH (07:25)
[2019-04-04] MEDS: FOLIC ACID 1 MG TAB PO SCH (07:25)
[2019-04-04] MEDS: SPIRONOLACTONE 25 MG TAB PO SCH (07:25)
[2019-04-04] MEDS: METOPROLOL TARTRATE 25 MG TAB PO SCH (07:25)
[2019-04-04] MEDS: FUROSEMIDE 40 MG TAB PO SCH (07:25)
[2019-04-04] MEDS: ALLOPURINOL 100 MG TAB PO SCH (07:25)
[2019-04-04] MEDS: predniSONE 10 MG TAB PO SCH (07:25)
[2019-04-04] MEDS: ALPRAZolam 0.25 MG TAB PO PRN (07:25)
[2019-04-04] MEDS: [UNRECOGNIZED DRUG - OTHER] PO SCH (07:34)
[2019-04-04] MEDS: HYDROcodone/APAP 10-325MG 1 EACH TAB PO PRN (08:43)
[2019-04-04 09:09] LABS: Anisocytosis Slight; Basophils % (A) 1 %; Eosinophils # (A) 0.1 k/uL (0-0.7); Eosinophils % (A) 2 %; HCT 28.5 % (34.0-46.0); HGB 9.4 gm/dL (11.4-16.0); Hypochromasia Slight; Lymphocytes # (A) 1.3 k/uL (1.0-4.8); Lymphocytes % (A) 28 %; Macrocytosis Slight; Mean Platelet Volume 8.4; Monocytes # (A) 0.4 k/uL (0-1.0); Monocytes % (A) 9 %; Neutrophils # (A) 2.7 k/uL (1.3-7.7); Neutrophils % (A) 60 %; Poikilocytosis Slight; RBC 2.94 m/uL (3.80-5.40); RDW 16.6 % (11.5-15.5); WBC 4.6 k/uL (3.8-10.6)
[2019-04-04 09:10] LABS: Platelet Count 63 k/uL (150-450)
[2019-04-04 09:14] LABS: Albumin 2.1 g/dL (3.5-5.0); Calcium 7.9 mg/dL (8.4-10.2); Potassium 3.6 mmol/L (3.5-5.1); Total Protein 4.9 g/dL (6.3-8.2)
--- NOTE | 2019-04-04 10:04 | P.DS ---
Providers Date of admission: 04/02/19 12:20 Expected date of discharge: 04/04/19 Attending physician: Kel Mason Consults: 04/02/19 15:17 Consult Physician Routine Consulting Provider: Delfin العلي Consult Reason/Comments: Liver cirrhosis Do you want consulting provider notified?: Yes Primary care physician: Kel Isabella [facility] Course: Discharge diagnosis 1. Increased abdominal distention and shortness of breath secondary to abdominal ascites. Status post paracentesis 7 L removed. Per GI services patient has been set up for outpatient paracentesis every 3-4 weeks as needed. patient to follow with GI services 2 days. 2. Increased swelling to lower extremities. Venous Doppler completed showing negative for DVT 3. History of chronic pain 4. History liver cirrhosis 5. History of essential hypertension 6. Chronic kidney disease stage III 7. History of hepatitis C 8. Anemia of chronic kidney disease 9. 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 Thrombocytopenia secondary to liver disease 11. Anxiety disorder maintained on Xanax 12. Nicotine dependence. Discussed smoking cessation greater than 3 minutes. Nicotine patch added 13. Hematuria. Patient had previous hematuria pelvic ultrasound was completed showing negative transabdominal pelvic sonogram no edema Free fluid. Patient to follow-up with [facility] for further workup Hospital course This is a 54-year-old female patient who presented with complaints of increased swelling to abdomen and lower extremities. Patient has a known past medical history of hepatitis C with liver cirrhosis, chronic kidney disease stage IV, hypertension, chronic pain and anemia. Patient also reports that she's been having shortness of breath likely due to the increase abdominal swelling. Chest x-ray with showing no acute cardiopulmonary process. EKG completed showing normal sinus rhythm with normal EKG. Patient's last paracentesis approximately 1 month ago. Patient reports she has been unable to arrange outpatient paracentesis through the GI office. Interventional radiology has been consulted. Paracentesis to be arranged. At this time patient denies any chest pain or shortness breath. Patient does complain of abdominal pain some nausea. Patient denies any urinary burning or frequency On 04/03/2019 patient is alert and oriented 3. Patient is status post paracentesis of 7 L of fluid. Patient still having some abdominal discomfort. GI services are following. Patient to be set up with outpatient paracentesis. Order given to patient. At this time patient denies chest pain or shortness of breath. Patient having some abdominal discomfort. Patient denies nausea vomiting or diarrhea. Patient denies any urinary burning or frequency On 04/04/2018 patient is alert and oriented 3. Patient is feeling much improved after paracentesis. GI services have arranged patient for outpatient paracentesis. Patient has follow-up appointment with Dr. Magaña tomorrow 04/05/2019. Patient to follow-up with [facility] for hematuria. This time patient denies chest pain or shortness of breath. Patient denies nausea vomiting or diarrhea. Patient denies any urinary burning or frequency I performed an examination of the patient and discussed their management with the Nurse Practitioner. I have reviewed the Nurse Practitioner's notes and agree with the documented findings and plan of care Patient Condition at Discharge: Stable Plan - Discharge Summary Discharge Rx Participant: No New Discharge Prescriptions: Continue Metoprolol Tartrate 25 mg PO DAILY ALPRAZolam [Xanax] 0.25 mg PO BID PRN PRN Reason: Anxiety HYDROcodone/APAP 10-325MG [[place] 10-325] 1 tab PO BID Furosemide [Lasix] 40 mg PO DAILY Pantoprazole Sodium [Protonix] 40 mg PO DAILY Allopurinol [Zyloprim] 100 mg PO DAILY predniSONE 10 mg PO DAILY Folic Acid 1 mg PO DAILY Spironolactone [Aldactone] 50 mg PO DAILY #30 tab Ferrous Sulfate [Feosol] 325 mg PO BID #60 tab Sofosbuvir/Velpatas/Voxilaprev [Vosevi 400-100-100 mg Tablet] 1 tab PO DAILY Discharge Medication List ALPRAZolam [Xanax] 0.25 mg PO BID PRN 09/13/18 [History] Metoprolol Tartrate 25 mg PO DAILY 09/13/18 [History] Furosemide [Lasix] 40 mg PO DAILY 11/21/18 [History] HYDROcodone/APAP 10-325MG [[place] 10-325] 1 tab PO BID 11/21/18 [History] Allopurinol [Zyloprim] 100 mg PO DAILY 01/12/19 [History] Pantoprazole Sodium [Protonix] 40 mg PO DAILY 01/12/19 [History] Folic Acid 1 mg PO DAILY 02/13/19 [History] predniSONE 10 mg PO DAILY 02/13/19 [History] Ferrous Sulfate [Feosol] 325 mg PO BID #60 tab 03/08/19 [Rx] Spironolactone [Aldactone] 50 mg PO DAILY #30 tab 03/08/19 [Rx] Sofosbuvir/Velpatas/Voxilaprev [Vosevi 400-100-100 mg Tablet] 1 tab PO DAILY 04/02/19 [History] Follow up Appointment(s)/Referral(s): Kel Mason MD [Primary Care Provider] - 1-2 days Delfin العلي MD [STAFF PHYSICIAN] - 04/06/19 Sarika Cardoso DO [Doctor of Osteopathic Medicine] - 1 Week Activity/Diet/Wound Care/Special Instructions: Paracentesis set up with outpatient interventional radiology for Tuesday April 30, 2019. Be there at 12:30pm - Nothing to eat or drink after 11:30 am that day Activity as tolerated Diet low sodium 2000 mg diet Patient to follow-up with [facility] for hematuria Discharge Disposition: HOME SELF-CARE
== END 2019-04-04 11:55 | disposition home or self-care (01) ==
LOC: EC 08:49 → 3NMEDONC 12:20
PROVIDERS: ADMIT Internal Medicine; ATTEND Internal Medicine
DX: K70.31 Alcoholic cirrhosis of liver with ascites (principal); J44.9 Chronic obstructive pulmonary disease, unspecified; R19.00 Intra-abdominal and pelvic swelling, mass and lump, unspecified site; G89.29 Other chronic pain; B18.2 Chronic viral hepatitis C; F41.9 Anxiety disorder, unspecified; D63.1 Anemia in chronic kidney disease; N18.4 Chronic kidney disease, stage 4 (severe); F17.200 Nicotine dependence, unspecified, uncomplicated; R31.9 Hematuria, unspecified; R60.0 Localized edema; K76.6 Portal hypertension; I12.9 Hypertensive chronic kidney disease with stage 1 through stage 4 chronic kidney disease, or unspecified chronic kidney disease; G62.9 Polyneuropathy, unspecified; M54.5 Low back pain; F40.240 Claustrophobia; D69.59 Other secondary thrombocytopenia; F32.9 Major depressive disorder, single episode, unspecified; K21.9 Gastro-esophageal reflux disease without esophagitis; E66.9 Obesity, unspecified; Z68.37 Body mass index [BMI] 37.0-37.9, adult; Z87.898 Personal history of other specified conditions; Z87.440 Personal history of urinary (tract) infections; Z79.899 Other long term (current) drug therapy; Z79.891 Long term (current) use of opiate analgesic; Z79.52 Long term (current) use of systemic steroids; Z88.8 Allergy status to other drugs, medicaments and biological substances; Z80.9 Family history of malignant neoplasm, unspecified; Z82.49 Family history of ischemic heart disease and other diseases of the circulatory system; Z82.0 Family history of epilepsy and other diseases of the nervous system
CPT/HCPCS: 96376 ×3; 96361 ×2; 96375 ×2; 96374; 99285; 36415; 93005; 83880; 80053 ×3; 82150; 83690; 85025 ×3; 85610; 85730; 81001; 71046; 49083; 93970; G0378 ×3; S4990 ×2; J2270 ×3; J2405 ×3; P9047; J7512 ×2; C9113 ×2

== ENCOUNTER 2019-04-30 11:51 | Day surgery (SDC) | payer OTHER ==
[2019-04-30 12:14] VITALS: TEMP 98.5
[2019-04-30 12:36] LABS: Prothrombin Time 10.5 sec (9.0-12.0)
[2019-04-30 12:44] LABS: Platelet Count 90 k/uL (150-450)
[2019-04-30 13:34] VITALS: RESP 16
[2019-04-30] MEDS: ALBUMIN HUMAN 25% 50 ML in EMPTY BAG 1 BAG IVPB SCH ×2 (14:05→14:20)
--- NOTE | 2019-04-30 14:29 | US ---
Therapeutic paracentesis. DATE OF EXAM: 04/30/2019 CLINICAL HISTORY: Ascites The procedure was discussed with the patient. The risks, complications, benefits, and alternatives we re discussed and any questions were answered. Informed consent was obtained. The patient was placed s upine on the ultrasound table and prepped and draped in the usual sterile fashion. All elements of maximal barrier technique were utilized. Under ultrasound guidance, access into the right lower quadrant was obtained, via the paracentesis catheter system and direct ultrasound guidanc e. Approximately 5.4 liters of straw-colored fluid was removed. The patient was stable throughout the pr ocedure and remained stable upon discharge from Department of Radiology. IMPRESSION: Successful therapeutic paracentesis under ultrasound guidance.
[2019-04-30 14:44] VITALS: PULSE 74
[2019-04-30 14:56] VITALS: BP 196/66
== END 2019-04-30 15:04 | disposition home or self-care (01) ==
LOC: RADPROMAIN 11:51
PROVIDERS: ATTEND Internal Medicine
DX: R18.8 Other ascites (principal)
CPT/HCPCS: 82565; 84520; 85049; 85610; 49083; P9047

== ENCOUNTER → 2019-05-11 | Outpatient (CLI) | payer OTHER ==
[2019-05-11 08:37] LABS: Basophils % (A) 0 %; Eosinophils # (A) 0.2 k/uL (0-0.7); Eosinophils % (A) 3 %; HCT 31.7 % (34.0-46.0); HGB 10.5 gm/dL (11.4-16.0); Lymphocytes # (A) 1.4 k/uL (1.0-4.8); Lymphocytes % (A) 26 %; MCH 32.2 pg (25.0-35.0); MCHC 33.1 g/dL (31.0-37.0); MCV 97.3 fL (80.0-100.0); Mean Platelet Volume 8.8; Monocytes # (A) 0.5 k/uL (0-1.0); Monocytes % (A) 9 %; Neutrophils # (A) 3.4 k/uL (1.3-7.7); Neutrophils % (A) 60 %; Platelet Count 125 k/uL (150-450); Poikilocytosis Slight; RBC 3.26 m/uL (3.80-5.40); RDW 14.5 % (11.5-15.5); WBC 5.6 k/uL (3.8-10.6)
[2019-05-11 18:07] LABS: African American GFR (CKD) 34.3 (60.0-200.0); Albumin 2.5 g/dL (3.80-4.90); Anion Gap 6.5 mmol/L (4.00-12.00); BUN/Creat Ratio 14.21 Ratio (12.00-20.00); Calcium 7.8 mg/dL (8.7-10.3); Carbon Dioxide 25.5 mmol/L (21.6-31.8); Globulin 2.5 g/dL (1.6-3.3); Potassium 3.8 mmol/L (3.5-5.5); Total Bilirubin 0.9 mg/dL (0.2-1.2)
[2019-05-14 15:55] LABS: LOG HCV IU/mL <1.08 (<1.08)
== END | disposition home or self-care (01) ==
LOC: LABWHC1 08:15
PROVIDERS: ATTEND Internal Medicine Gastroenterology
DX: K74.60 Unspecified cirrhosis of liver (principal)
CPT/HCPCS: 36415; 80053; 82105; 85025; 87522

== ENCOUNTER 2019-05-30 12:08 | Day surgery (SDC) | payer OTHER ==
[2019-05-30 12:42] LABS: Mean Platelet Volume 9.6; Platelet Count 128 k/uL (150-450)
[2019-05-30 12:51] LABS: INR 1.1 (<1.2); Prothrombin Time 11.8 sec (9.0-12.0)
[2019-05-30 13:03] VITALS: TEMP 98.4
[2019-05-30 13:25] VITALS: RESP 16
[2019-05-30] MEDS: ALBUMIN HUMAN 25% 50 ML in EMPTY BAG 1 BAG IVPB SCH ×2 (13:50→14:10)
[2019-05-30 15:26] VITALS: BP 154/74; PULSE 78
--- NOTE | 2019-05-30 15:55 | US ---
Therapeutic paracentesis. DATE OF EXAM: 05/30/2019 CLINICAL HISTORY: Ascites The procedure was discussed with the patient. The risks, complications, benefits, and alternatives we re discussed and any questions were answered. Informed consent was obtained. The patient was placed s upine on the ultrasound table and prepped and draped in the usual sterile fashion. All elements of maximal barrier technique were utilized. Under ultrasound guidance, access into the right lower quadrant was obtained, via the paracentesis catheter system and direct ultrasound guidanc e. Approximately 6.4 liters of straw-colored fluid was removed. The patient was stable throughout the pr ocedure and remained stable upon discharge from Department of Radiology. IMPRESSION: Successful therapeutic paracentesis under ultrasound guidance.
== END 2019-05-30 15:20 | disposition home or self-care (01) ==
LOC: RADPROMAIN 12:08
PROVIDERS: ATTEND Internal Medicine
DX: R18.8 Other ascites (principal)
CPT/HCPCS: 82565; 85049; 85610; 36415; 49083; P9047

== ENCOUNTER 2019-06-12 11:46 | Observation (INO) | payer OTHER ==
--- NOTE | 2019-06-12 11:56 | ED ---
Abdominal Pain HPI - General Source: patient Mode of arrival: ambulatory Limitations: no limitations <Agnieszka Early - Last Filed: 06/12/19 14:28> <Armand Bainah Chloe - Last Filed: 06/21/19 13:31> - General Chief Complaint: Abdominal Pain Stated Complaint: Belly full of fluid/sob Time Seen by Provider: 06/12/19 11:54 - History of Present Illness Initial Comments: 54-year-old female history of liver cirrhosis, hepatitis C, ascites presents emergency department for chief complaint of abdominal distention and abdominal crampy pain. Patient states that she frequently has paracentesis due to ascites. Patient states that since the may she has had increasing abdominal distention and crampy pain. She states this feels as though she needs another paracentesis she denies any differences in characteri stic. Patient states when her fluid builds up this level and pushes her lungs creating her to feel social On them and have shortness of breath. Patient denies any chest pain or arm pain and jaw pain. Patient denies any hemoptysis lower extremity swelling. 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 Patient states she cannot wait that long the distention is growing daily and the discomfort is going to be unbearable. Patient presents emergency department for further evaluation. Patient denies any fever or chills night sweats or flu like symptoms. Patient denies any back pain or any other concerning signs or symptoms. (Agnieszka Early) - Related Data Home Medications Medication Instructions Recorded Confirmed ALPRAZolam [Xanax] 0.25 mg PO BID PRN 09/13/18 06/12/19 Metoprolol Tartrate 25 mg PO DAILY 09/13/18 06/12/19 Furosemide [Lasix] 40 mg PO DAILY 11/21/18 06/12/19 HYDROcodone/APAP 10-325MG [[place] 1 tab PO BID 11/21/18 06/12/19 10-325] Allopurinol [Zyloprim] 100 mg PO DAILY 01/12/19 06/12/19 Pantoprazole Sodium [Protonix] 40 mg PO DAILY 01/12/19 06/12/19 Folic Acid 1 mg PO DAILY 02/13/19 06/12/19 Magnesium Chloride [Slow Mag] 64 mg PO BID 06/18/19 06/18/19 Previous Rx's Medication Instructions Recorded Ferrous Sulfate [Feosol] 325 mg PO BID #60 tab 03/08/19 Spironolactone [Aldactone] 50 mg PO DAILY #30 tab 03/08/19 Allergies Allergy/AdvReac Type Severity Reaction Status Date / Time bupropion [From Wellbutrin] AdvReac seizure Verified 06/12/19 12:19 Review of Systems ROS Other: All systems not noted in ROS Statement are negative. <Agnieszka Early - Last Filed: 06/12/19 14:28> ROS Other: All systems not noted in ROS Statement are negative. <Chiquis Bain - Last Filed: 06/21/19 13:31> ROS Statement: Those systems with pertinent positive or pertinent negative responses have been documented in the HPI. Past Medical History Past Medical History: COPD, GERD/Reflux, Hypertension, Liver Disease, Renal Disease Additional Past Medical History / Comment(s): Pt recently admitted to [facility] on 03/02/19 with gastroenteritis/nausea/vomiting/diarrhea/abdominal pain/ascities/UTI and had negative Cdiff. Other hx: Hep C, alcoholic liver cirrhosis, portal HTN, abdominal ascities, IGa nephropathy, thromobocytopenia, CKD stage IV, anemia, severe protein calorie malnutrition, frequent diarrhea, low back pain from an injury. History of Any Multi-Drug Resistant Organisms: None Reported Past Surgical History: Tubal Ligation Additional Past Surgical History / Comment(s): multiple Paracentesis Past Anesthesia/Blood Transfusion Reactions: No Reported Reaction Additional Past Anesthesia/Blood Transfusion Reaction / Comment(s): claust rophobia Past Psychological History: Anxiety, Depression Smoking Status: Current every day smoker Past Alcohol Use History: None Reported Past Drug Use History: None Reported - Past Family History Father History Unknown: Yes Family Medical History: Cancer Additional Family Medical History / Comment(s): Unk type of cancer. Father is . Mother History Unknown: Yes Family Medical History: AFIB, Congestive Heart Failure (CHF), Myocardial Infarction (HI), Seizure Disorder Additional Family Medical History / Comment(s): Mother had a HI at the age of 52 yrs. She is . <Agnieszka Early - Last Filed: 06/12/19 14:28> General Exam Limitations: no limitations <Agnieszka Early - Last Filed: 06/12/19 14:28> - General Exam Comments Initial Comments: General: The patient is awake and alert, in no distress Eye: Pupils are equal, round and reactive to light, extra-ocular movements are intact. No nystagmus. There is normal conjunctiva bilaterally. No signs of icterus. Ears, nose, mouth and throat: There are moist mucous membranes and no oral lesions. Neck: The neck is supple, there is no tenderness or JVD. Cardiovascular: There is a regular rate and rhythm. No murmur, rub or gallop is appreciated. Respiratory: Lungs are clear to auscultation, respirations are non-labored, breath sounds are equal. No wheezes, stridor, rales, or rhonchi. Gastrointestinal: Distended abdomen abdomen on gross examination, soft positive fluid wave, diffusely tender abdomen without masses, obvious liver enlargement. There is no rebound or guarding present. Musculoskeletal: Normal ROM, no tenderness. Strength 5/5. Sensation intact. Radial pulses equal bilaterally 2+. Neurological: A&O x 3. CN II-XII intact, There are no obvious motor or sensory deficits. Coordination appears grossly intact. Speech is normal. Skin: Skin is warm and dry and no rashes or lesions are noted. Psychiatric: Cooperative, appropriate mood & affect, normal judgment. (Agnieszka Early) Course Vital Signs 06/12/19 06/12/19 06/12/19 11:48 12:45 13:26 Temperature 98.0 F 98.8 F Pulse Rate 122 H 99 87 Pulse Rate [ Pulse Oximetery ] Respiratory 18 18 16 Rate Blood Pressure 147/98 151/101 154/85 Blood Pressure [Left Arm] Blood Pressure [Right Arm] O2 Sat by Pulse 97 99 98 Oximetry 06/12/19 06/12/19 06/12/19 13:28 14:00 15:00 Temperature Pulse Rate 90 87 89 Pulse Rate [ Pulse Oximetery ] Respiratory 16 15 16 Rate Blood Pressure 154/85 152/90 166/96 Blood Pressure [Left Arm] Blood Pressure [Right Arm] O2 Sat by Pulse 99 98 98 Oximetry 06/12/19 06/12/19 06/12/19 15:15 15:37 15:47 Temperature Pulse Rate Pulse Rate [ 91 89 89 Pulse Oximetery ] Respiratory 18 18 16 Rate Blood Pressure Blood Pressure 154/79 [Left Arm] Blood Pressure 158/93 161/89 [Right Arm] O2 Sat by Pulse 100 99 100 Oximetry 06/12/19 06/12/19 06/12/19 15:58 16:00 16:19 Temperature Pulse Rate 89 Pulse Rate [ 90 90 Pulse Oximetery ] Respiratory 16 15 16 Rate Blood Pressure 161/90 Blood Pressure [Left Arm] Blood Pressure 161/90 161/88 [Right Arm] O2 Sat by Pulse 100 100 91 L Oximetry 06/12/19 16:21 Temperature Pulse Rate 91 Pulse Rate [ Pulse Oximetery ] Respiratory 16 Rate Blood Pressure 153/86 Blood Pressure [Left Arm] Blood Pressure [Right Arm] O2 Sat by Pulse 98 Oximetry Medical Decision Making - Lab Data Result diagrams: 06/12/19 12:10 06/12/19 12:10 <Agnieszka Early - Last Filed: 06/12/19 14:28> - Lab Data Result diagrams: 06/14/19 08:32 06/14/19 08:32 <Chiquis Bain - Last Filed: 06/21/19 13:31> - Medical Decision Making 54-year-old female with chronic ascites who requires frequent paracentesis. Next scheduld is June 22. Patient states that she could also wait. Patient has significant distention on examination. Positive fluid wave. Patient has no history of fevers. No leukocytosis or concern for SBP. At this time we feel patient should be admitted for therapeutic paracentesis. Otherwise laboratory studies are stable. Patient appears well no acute distress. Patient is given pain medications the emergency department for discomfort. I discussed the case with my attending provider Dr. Bain who evaluated the patient in person is agreeable with care plan at admission at this time she did speak with Dr. Mason. He was agreeable to this Plan and admission at this time. (Agnieszka Early) I was available for consultation in the emergency department. The history and physical exam were done by the midlevel provider. I was consulted for this patient's care. I reviewed the case with the midlevel provider and based on their presentation of the patient, I agree with the assessment, medical decision making and plan of care as documented. I saw the patient myself, agreed with admission. Discussed the case with Dr. Mason who accepted admission. IR will be consulted. Chart was dictated using SDI dictation software. Attempts were made to correct any dictation errors however some typographical errors may persist. (Chiquis Jones) - Lab Data Lab Results 06/12/19 06/12/19 06/12/19 Range/Units 12:10 12:10 12:10 WBC 5.7 (3.8-10.6) k/uL RBC 3.03 L (3.80-5.40) m/uL Hgb 10.0 L (11.4-16.0) gm/dL Hct 28.8 L (34.0-46.0) % MCV 95.0 (80.0-100.0) fL MCH 32.9 (25.0-35.0) pg MCHC 34.6 (31.0-37.0) g/dL RDW 16.9 H (11.5-15.5) % Plt Count 135 L (150-450) k/uL Neutrophils % 51 % Lymphocytes % 35 % Monocytes % 8 % Eosinophils % 3 % Basophils % 1 % Neutrophils # 2.9 (1.3-7.7) k/uL Lymphocytes # 2.0 (1.0-4.8) k/uL Monocytes # 0.4 (0-1.0) k/uL Eosinophils # 0.2 (0-0.7) k/uL Basophils # 0.1 (0-0.2) k/uL Poikilocytosis Slight Anisocytosis Slight PT 11.3 (9.0-12.0) sec INR 1.1 (<1.2) APTT 26.6 (22.0-30.0) sec Sodium 141 (137-145) mmol/L Potassium 3.6 (3.5-5.1) mmol/L Chloride 115 H (98-107) mmol/L Carbon Dioxide 17 L (22-30) mmol/L Anion Gap 9 mmol/L BUN 24 H (7-17) mg/dL Creatinine 1.66 H (0.52-1.04) mg/dL Est GFR (CKD-EPI)AfAm 40 (>60 ml/min/1.73 sqM) Est GFR (CKD-EPI)NonAf 35 (>60 ml/min/1.73 sqM) Glucose 111 H (74-99) mg/dL Calcium 8.5 (8.4-10.2) mg/dL Total Bilirubin 0.7 (0.2-1.3) mg/dL AST 31 (14-36) U/L ALT 15 (9-52) U/L Alkaline Phosphatase 79 (38-126) U/L Total Protein 6.0 L (6.3-8.2) g/dL Albumin 2.5 L (3.5-5.0) g/dL Amylase 59 (30-110) U/L Lipase 297 (23-300) U/L Urine Color Urine Appearance (Clear) Urine pH (5.0-8.0) Ur Specific [place] (1.001-1.035) Urine Protein (Negative) Urine Glucose (UA) (Negative) Urine Ketones (Negative) Urine Blood (Negative) Urine Nitrite (Negative) Urine Bilirubin (Negative) Urine Urobilinogen (<2.0) mg/dL Ur Leukocyte Esterase (Negative) Urine RBC (0-5) /hpf Urine WBC (0-5) /hpf Ur Squamous Epith Cells (0-4) /hpf Urine Bacteria (None) /hpf Hyaline Casts (0-2) /lpf Urine Mucus (None) /hpf 06/12/19 Range/Units 12:10 WBC (3.8-10.6) k/uL RBC (3.80-5.40) m/uL Hgb (11.4-16.0) gm/dL Hct (34.0-46.0) % MCV (80.0-100.0) fL MCH (25.0-35.0) pg MCHC (31.0-37.0) g/dL RDW (11.5-15.5) % Plt Count (150-450) k/uL Neutrophils % % Lymphocytes % % Monocytes % % Eosinophils % % Basophils % % Neutrophils # (1.3-7.7) k/uL Lymphocytes # (1.0-4.8) k/uL Monocytes # (0-1.0) k/uL Eosinophils # (0-0.7) k/uL Basophils # (0-0.2) k/uL Poikilocytosis Anisocytosis PT (9.0-12.0) sec INR (<1.2) APTT (22.0-30.0) sec Sodium (137-145) mmol/L Potassium (3.5-5.1) mmol/L Chloride (98-107) mmol/L Carbon Dioxide (22-30) mmol/L Anion Gap mmol/L BUN (7-17) mg/dL Creatinine (0.52-1.04) mg/dL Est GFR (CKD-EPI)AfAm (>60 ml/min/1.73 sqM) Est GFR (CKD-EPI)NonAf (>60 ml/min/1.73 sqM) Glucose (74-99) mg/dL Calcium (8.4-10.2) mg/dL Total Bilirubin (0.2-1.3) mg/dL AST (14-36) U/L ALT (9-52) U/L Alkaline Phosphatase (38-126) U/L Total Protein (6.3-8.2) g/dL Albumin (3.5-5.0) g/dL Amylase (30-110) U/L Lipase (23-300) U/L Urine Color Yellow Urine Appearance Clear (Clear) Urine pH 6.5 (5.0-8.0) Ur Specific [place] 1.011 (1.001-1.035) Urine Protein 3+ H (Negative) Urine Glucose (UA) Negative (Negative) Urine Ketones Negative (Negative) Urine Blood Large H (Negative) Urine Nitrite Negative (Negative) Urine Bilirubin Negative (Negative) Urine Urobilinogen <2.0 (<2.0) mg/dL Ur Leukocyte Esterase Trace H (Negative) Urine RBC >182 H (0-5) /hpf Urine WBC 14 H (0-5) /hpf Ur Squamous Epith Cells 2 (0-4) /hpf Urine Bacteria Occasional H (None) /hpf Hyaline Casts 98 H (0-2) /lpf Urine Mucus Rare H (None) /hpf Disposition Is patient prescribed a controlled substance at d/c from ED?: No Time of Disposition: 14:25 Decision to Admit Reason: Admit from EC Decision Date: 06/12/19 Decision Time: 14:25 <Agnieszka Early - Last Filed: 06/12/19 14:28> <Chiquis Bain - Last Filed: 06/21/19 13:31> Clinical Impression: Ascites, Abdominal pain Disposition: ADMITTED IP TO THIS HOSP Condition: Stable
[2019-06-12 12:37] LABS: Anisocytosis Slight; Basophils # (A) 0.1 k/uL (0-0.2); Basophils % (A) 1 %; Eosinophils # (A) 0.2 k/uL (0-0.7); Eosinophils % (A) 3 %; HCT 28.8 % (34.0-46.0); Lymphocytes % (A) 35 %; MCH 32.9 pg (25.0-35.0); MCHC 34.6 g/dL (31.0-37.0); Mean Platelet Volume 7.7; Monocytes # (A) 0.4 k/uL (0-1.0); Monocytes % (A) 8 %; Neutrophils # (A) 2.9 k/uL (1.3-7.7); Neutrophils % (A) 51 %; Platelet Count 135 k/uL (150-450); Poikilocytosis Slight; RBC 3.03 m/uL (3.80-5.40); RDW 16.9 % (11.5-15.5); WBC 5.7 k/uL (3.8-10.6)
[2019-06-12 12:38] LABS: INR 1.1 (<1.2); Partial Thromboplastin Time 26.6 sec (22.0-30.0); Prothrombin Time 11.3 sec (9.0-12.0)
[2019-06-12 12:45] LABS: Appearance,Urine Clear (Clear); Bacteria,Urine Occasional /hpf; Bilirubin,Urine Negative (Negative); Blood,Urine Large (Negative); Color,Urine Yellow; Glucose,Urine (UA) Negative (Negative); Hyaline Casts,Urine 98 /lpf (0-2); Ketones,Urine Negative (Negative); Leukocyte Esterase,Urine Trace (Negative); Mucus,Urine Rare /hpf; Nitrite,Urine Negative (Negative); PH, Urine 6.5 (5.0-8.0); Protein,Urine 3+ (Negative); RBC,Urine >182 /hpf (0-5); Specific Gravity,Urine 1.011 (1.001-1.035); Squamous Epithelial Cell,Urine 2 /hpf (0-4); Urobilinogen,Urine <2.0 mg/dL (<2.0); WBC,Urine 14 /hpf (0-5)
[2019-06-12 12:50] LABS: Albumin 2.5 g/dL (3.5-5.0); Calcium 8.5 mg/dL (8.4-10.2); Potassium 3.6 mmol/L (3.5-5.1); Total Bilirubin 0.7 mg/dL (0.2-1.3)
[2019-06-12] MEDS ORDERED: MORPHINE SULFATE 2 MG/ML SYRINGE IVP STA (13:28)
[2019-06-12] MEDS ORDERED: NALOXONE 0.4 MG/ML 1 ML VIAL IV PRN (14:25)
[2019-06-12] MEDS ORDERED: [UNRECOGNIZED DRUG - OTHER] PO SCH (15:00)
--- NOTE | 2019-06-12 15:08 | P.HPIM ---
History of Present Illness H&P Date: 06/12/19 Chief Complaint: Ascites and shortness of breath Patient is a 54-year-old female who presented to the emergency room complaining of "belly full of fluid and shortness of breath." Patient has a history of ascites and was received last outpatient paracentesis on 05/29/2018 were 6.4 L of fluid was taken off of the abdomen. Patient is also complaining of some abdominal pain and cramping, patient states is typical symptoms of ascites for her. Patient reports shortness of breath likely due to the increase in abdominal swelling. Patient has a known history of hepatitis C with liver cirrhosis, chronic kidney disease stage III, hypertension, chronic pain and anemia. Patient denies chest pain, patient denies cough, patient denies fatigue, denies nausea, vomiting, fever and chills. Patient denies urinary burning, frequency, or hematuria. Interventional radiology has been consulted. Paracentesis to be arranged. Review of Systems Please refer to HPI. Otherwise unremarkable Past Medical History Past Medical History: COPD, GERD/Reflux, Hypertension, Liver Disease, Renal Disease Additional Past Medical History / Comment(s): Pt recently admitted to [facility] on 03/02/19 with gastroenteritis/nausea/vomiting/diarrhea/abdominal pain/ascities/UTI and had negative Cdiff. Other hx: Hep C, alcoholic liver cirrhosis, portal HTN, abdominal ascities, IGa nephropathy, thromobocytopenia, CKD stage IV, anemia, severe protein calorie malnutrition, frequent diarrhea, low back pain from an injury. History of Any Multi-Drug Resistant Organisms: None Reported Past Surgical History: Tubal Ligation Additional Past Surgical History / Comment(s): multiple Paracentesis Past Anesthesia/Blood Transfusion Reactions: No Reported Reaction Additional Past Anesthesia/Blood Transfusion Reaction / Comment(s): claustrophobia Past Psychological History: Anxiety, Depression Smoking Status: Current every day smoker Past Alcohol Use History: None Reported Past Drug Use History: None Reported - Past Family History Father History Unknown: Yes Family Medical History: Cancer Additional Family Medical History / Comment(s): Unk type of cancer. Father is . Mother History Unknown: Yes Family Medical History: AFIB, Congestive Heart Failure (CHF), Myocardial Infarction (IN), Seizure Disorder Additional Family Medical History / Comment(s): Mother had a IN at the age of 52 yrs. She is . Medications and Allergies Home Medications Medication Instructions Recorded Confirmed Type ALPRAZolam [Xanax] 0.25 mg PO BID PRN 09/13/18 06/12/19 History Metoprolol Tartrate 25 mg PO DAILY 09/13/18 06/12/19 History Furosemide [Lasix] 40 mg PO DAILY 11/21/18 06/12/19 History HYDROcodone/APAP 10-325MG [[place] 1 tab PO BID 11/21/18 06/12/19 History 10-325] Allopurinol [Zyloprim] 100 mg PO DAILY 01/12/19 06/12/19 History Pantoprazole Sodium [Protonix] 40 mg PO DAILY 01/12/19 06/12/19 History Folic Acid 1 mg PO DAILY 02/13/19 06/12/19 History Ferrous Sulfate [Feosol] 325 mg PO BID #60 tab 03/08/19 06/12/19 Rx Spironolactone [Aldactone] 50 mg PO DAILY #30 tab 03/08/19 06/12/19 Rx Sofosbuvir/Velpatas/Voxilaprev 1 tablet PO DIRECTED 04/13/19 06/12/19 History [Vosevi 400-100-100 mg Tablet] Allergies Allergy/AdvReac Type Severity Reaction Status Date / Time bupropion [From Wellbutrin] AdvReac seizure Verified 06/12/19 12:19 Physical Exam Vitals: Vital Signs Temp Pulse Resp BP Pulse Ox 06/12/19 13:26 98.8 F 87 16 154/85 98 06/12/19 12:45 99 18 151/101 99 06/12/19 11:48 98.0 F 122 H 18 147/98 97 Intake and Output 06/11/19 06/12/19 06/12/19 22:59 06:59 14:59 Other: Weight 97.84 kg Head normocephalic Neck supple Lungs clear to auscultation bilaterally no wheezing or crackles Heart regular rate and rhythm S1-S2, no rub or gallop Abdomen is soft, abdomen distended. Positive fluid wave test. Extremities no edema Neuro alert and orientated to 3 Results CBC & Chem 7: 06/12/19 12:10 06/12/19 12:10 Labs: Abnormal Lab Results - Last 24 Hours (Table) 06/12/19 06/12/19 06/12/19 Range/Units 12:10 12:10 12:10 RBC 3.03 L (3.80-5.40) m/uL Hgb 10.0 L (11.4-16.0) gm/dL Hct 28.8 L (34.0-46.0) % RDW 16.9 H (11.5-15.5) % Plt Count 135 L (150-450) k/uL Chloride 115 H (98-107) mmol/L Carbon Dioxide 17 L (22-30) mmol/L BUN 24 H (7-17) mg/dL Creatinine 1.66 H (0.52-1.04) mg/dL Glucose 111 H (74-99) mg/dL Total Protein 6.0 L (6.3-8.2) g/dL Albumin 2.5 L (3.5-5.0) g/dL Urine Protein 3+ H (Negative) Urine Blood Large H (Negative) Ur Leukocyte Esterase Trace H (Negative) Urine RBC >182 H (0-5) /hpf Urine WBC 14 H (0-5) /hpf Urine Bacteria Occasional H (None) /hpf Hyaline Casts 98 H (0-2) /lpf Urine Mucus Rare H (None) /hpf Assessment and Plan Assessment: 1. 1. Increased abdominal distention or shortness of breath secondary to abdominal ascites. Status post paracentesis on 05/29/2019, 6.4 L removed. Interventional radiology consulted for paracentesis. 2. History of chronic pain. Home medications resumed. 3. History of liver cirrhosis 4. History of essential hypertension 5. Chronic kidney disease stage III. 6. History of hepatitis C 7. Anemia of chronic kidney disease 8. Thrombocytopenia secondary to liver disease. 9. History of nicotine dependence. Current every day smoker, nicotine patch ordered. Discussed Smoking cessation with patient greater than 3 minutes. 10. Hematuria present on UA on admission to the emergency room. Patient was i nstructed on previous admission to follow-up with gynecology, patient states she did not follow-up. Patient denies any physical hematuria in urine. DVT prophylaxis SCDs due to thrombocytopenia. GI prophylaxis Protonix. Time with Patient: Greater than 30 (Greater than 60% of the total time spent in counseling and coordination of care. I performed an examination of the patient and discussed their management with the Nurse Practitioner. I have reviewed the Nurse Practitioner's notes and agree with the documented findings and plan of care.)
--- NOTE | 2019-06-12 16:43 | US ---
EXAMINATION TYPE: US paracentesis abd w/image DATE OF EXAM: 06/12/2019 COMPARISON: NONE HISTORY: Ascites. PROCEDURE: Maximal barrier technique was utilized. The skin overlying a suitable pocket of fluid was localized with ultrasound and the overlying skin was prepped and draped. Ultrasound was utilized with sterile technique. Lidocaine was used for local anesthesia and a skin sary made with a scalpel. Catheter was advanced under direct ultrasound guidance into a suitable pocket of fluid and approximately 7.5 liter s of serous fluid were removed. Catheter was withdrawn and hemostasis achieved. There is no immedia te complication; the patient is discharged in stable condition. IMPRESSION: STATUS POST ULTRASOUND GUIDED PARACENTESIS FOR PALLIATION OF ASCITES. THIS PROCEDURE WA S PERFORMED BY THE UNDERSIGNED.
[2019-06-12] MEDS: HYDROcodone/APAP 10-325MG 1 EACH TAB PO PRN (17:20)
[2019-06-12] MEDS: SODIUM CHLORIDE 0.9% 1,000 ML IV SCH (17:20)
[2019-06-12] MEDS: ALBUMIN HUMAN 25% 50 ML in EMPTY BAG 1 BAG IVPB SCH ×3 (17:21→18:28)
[2019-06-12] MEDS: ALPRAZolam 0.25 MG TAB PO PRN (20:29)
[2019-06-12] MEDS: MORPHINE SULFATE 4 MG/ML SYRINGE IV PRN (20:29)
[2019-06-12] MEDS: FERROUS SULFATE 325 MG TAB PO SCH (20:29)
[2019-06-13] MEDS: MORPHINE SULFATE 4 MG/ML SYRINGE IV PRN ×4 (01:00→21:20)
[2019-06-13] MEDS: HYDROcodone/APAP 10-325MG 1 EACH TAB PO PRN ×2 (04:40→17:17)
[2019-06-13] MEDS: METOPROLOL TARTRATE 25 MG TAB PO SCH (08:06)
[2019-06-13] MEDS: FOLIC ACID 1 MG TAB PO SCH (08:06)
[2019-06-13] MEDS: FERROUS SULFATE 325 MG TAB PO SCH ×2 (08:06→22:00)
[2019-06-13] MEDS: ALLOPURINOL 100 MG TAB PO SCH (08:06)
[2019-06-13] MEDS: PANTOPRAZOLE 40 MG TABLET PO SCH (08:06)
[2019-06-13] MEDS: ALPRAZolam 0.25 MG TAB PO PRN ×2 (08:06→21:20)
[2019-06-13] MEDS: SPIRONOLACTONE 25 MG TAB PO SCH (08:06)
[2019-06-13] MEDS: NICOTINE 14MG/24HR PATCH TRANSDERM SCH (08:07)
[2019-06-13] MEDS: FUROSEMIDE 40 MG TAB PO SCH (08:07)
[2019-06-13 08:39] LABS: Basophils % (A) 1 %; Eosinophils # (A) 0.1 k/uL (0-0.7); Eosinophils % (A) 2 %; HGB 9.2 gm/dL (11.4-16.0); Lymphocytes # (A) 1.6 k/uL (1.0-4.8); Lymphocytes % (A) 40 %; MCH 32.8 pg (25.0-35.0); MCHC 34.1 g/dL (31.0-37.0); MCV 96.3 fL (80.0-100.0); Mean Platelet Volume 8.3; Monocytes # (A) 0.3 k/uL (0-1.0); Monocytes % (A) 7 %; Neutrophils # (A) 1.9 k/uL (1.3-7.7); Neutrophils % (A) 48 %; Platelet Count 106 k/uL (150-450); Poikilocytosis Slight; RDW 15.6 % (11.5-15.5); WBC 3.9 k/uL (3.8-10.6)
[2019-06-13 08:48] LABS: Albumin 2.4 g/dL (3.5-5.0); Calcium 8.3 mg/dL (8.4-10.2); Potassium 3.6 mmol/L (3.5-5.1); Total Bilirubin 0.6 mg/dL (0.2-1.3); Total Protein 5.3 g/dL (6.3-8.2)
--- NOTE | 2019-06-13 11:03 | P.PN ---
Subjective Progress Note Date: 06/13/19 Patient is a 54-year-old female who presented to the emergency room complaining of "belly full of fluid and shortness of breath." Patient has a history of ascites and was received last outpatient paracentesis on 05/29/2018 were 6.4 L of fluid was taken off of the abdomen. Patient is also complaining of some abdominal pain and cramping, patient states is typical symptoms of ascites for her. Patient reports shortness of breath likely due to the increase in abdominal swelling. Patient has a known history of hepatitis C with liver cirrhosis, chronic kidney disease stage III, hypertension, chronic pain and anemia. Patient denies chest pain, patient denies cough, patient denies fatigue, denies nausea, vomiting, fever and chills. Patient denies urinary burning, frequency, or hematuria. Interventional radiology has been consulted. Paracentesis to be arranged. On 06/13/2019, patient alert and oriented 3, resting in bed. Patient denies chest pain shortness of breath. Ultrasound guided paracentesis performed on 06/12/19, 7.5 liters removed. Complains of some abdominal tenderness in the upper quadrant, otherwise abdomen is soft nontender, nondistended. Tolerating diet, having normal BMs denies any problems with urination. Objective - Vital Signs Vital signs: Vital Signs Temp 98.1 F 06/13/19 07:41 Pulse 83 06/13/19 07:41 Resp 16 06/13/19 07:41 BP 145/88 06/13/19 07:41 Pulse Ox 96 06/13/19 07:41 Intake & Output 06/12/19 06/13/19 06/13/19 18:59 06:59 18:59 Intake Total 350 Balance 350 Weight 97.84 kg Intake: Oral 350 Other: # Voids 1 - Exam Head normocephalic Neck supple Lungs clear to auscultation bilaterally no wheezing or crackles Heart regular rate and rhythm S1-S2, no rub or gallop Abdomen is soft, tenderness in upper quadrants, nondistended, positive bowel sounds no hepatosplenomegaly Extremities, trace edema in martín lower extremities Neuro alert and orientated to 3 - Labs CBC & Chem 7: 06/13/19 08:19 06/13/19 08:19 Labs: Abnormal Lab Results - Last 24 Hours (Table) 06/12/19 06/12/1919 Range/Units 12:10 12:10 12:10 RBC 3.03 L (3.80-5.40) m/uL Hgb 10.0 L (11.4-16.0) gm/dL Hct 28.8 L (34.0-46.0) % RDW 16.9 H (11.5-15.5) % Plt Count 135 L (150-450) k/uL Chloride 115 H (98-107) mmol/L Carbon Dioxide 17 L (22-30) mmol/L BUN 24 H (7-17) mg/dL Creatinine 1.66 H (0.52-1.04) mg/dL Glucose 111 H (74-99) mg/dL Calcium (8.4-10.2) mg/dL Total Protein 6.0 L (6.3-8.2) g/dL Albumin 2.5 L (3.5-5.0) g/dL Urine Protein 3+ H (Negative) Urine Blood Large H (Negative) Ur Leukocyte Esterase Trace H (Negative) Urine RBC >182 H (0-5) /hpf Urine WBC 14 H (0-5) /hpf Urine Bacteria Occasional H (None) /hpf Hyaline Casts 98 H (0-2) /lpf Urine Mucus Rare H (None) /hpf 06/13/19 06/13/19 Range/Units 08:19 08:19 RBC 2.80 L (3.80-5.40) m/uL Hgb 9.2 L (11.4-16.0) gm/dL Hct 27.0 L (34.0-46.0) % RDW 15.6 H (11.5-15.5) % Plt Count 106 L (150-450) k/uL Chloride 114 H (98-107) mmol/L Carbon Dioxide 21 L (22-30) mmol/L BUN 21 H (7-17) mg/dL Creatinine 1.54 H (0.52-1.04) mg/dL Glucose (74-99) mg/dL Calcium 8.3 L (8.4-10.2) mg/dL Total Protein 5.3 L (6.3-8.2) g/dL Albumin 2.4 L (3.5-5.0) g/dL Urine Protein (Negative) Urine Blood (Negative) Ur Leukocyte Esterase (Negative) Urine RBC (0-5) /hpf Urine WBC (0-5) /hpf Urine Bacteria (None) /hpf Hyaline Casts (0-2) /lpf Urine Mucus (None) /hpf Assessment and Plan Assessment: 1. Increased abdominal distention or shortness of breath secondary to abdominal ascites. Status post paracentesis on 05/29/2019, 6.4 L removed. Interventional radiology consulted for paracentesis. Paracentesis performed on 06/12/19, 7.5 L removed. Respiratory symptoms have subsided. Possibly discharge within the next 48 hours. Awaiting GI recommendations before discharge. 2. History of chronic pain. Home medications resumed. 3. History of liver cirrhosis 4. History of essential hypertension 5. Chronic kidney disease stage III. 6. History of hepatitis C 7. Anemia of chronic kidney disease 8. Thrombocytopenia secondary to liver disease. 9. History of nicotine dependence. Current every day smoker, nicotine patch ordered. Discussed Smoking cessation with patient greater than 3 minutes. 10. Hematuria present on UA on admission to the emergency room. Patient was instructed on previous admission to follow-up with gynecology, patient states she did not follow-up. Patient denies any physical hematuria in urine. DVT prophylaxis SCDs due to thrombocytopenia. GI prophylaxis Protonix. I performed an examination of the patient and discussed their management with the Nurse Practitioner. I have reviewed the Nurse Practitioner's notes and agre e with the documented findings and plan of care
[2019-06-13] MEDS: SODIUM CHLORIDE 0.9% 1,000 ML IV SCH (17:02)
--- NOTE | 2019-06-13 21:22 | CONS ---
CONSULTATION DATE OF SERVICE: June 13, 2019. REASON FOR CONSULTATION: Chronic hepatitis-C/cirrhosis of the liver. HISTORY OF PRESENT ILLNESS: The patient is a 54 -year-old white female who with history of chronic hepatitis C infection, cirrhosis of the liver who is currently undergoing antiviral therapy with Vosevi that was started about 3 months ago. She finished her last dose of medication yesterday. She started having abdominal discomfort and abdominal distention and hence came to the emergency room and subsequently had a large volume paracentesis done early this morning and approximately 7.5 L was removed. Despite the paracentesis, she continues to have some abdominal discomfort, mostly in the epigastric area. She reports no nausea, vomiting. No diarrhea or rectal bleeding. No melena. She was diagnosed with cirrhosis of the liver approximately a year ago related to hepatitis C infection. She was also diagnosed with stage 3 kidney disease and follows with Dr. Angelo on an outpatient basis. PAST MEDICAL HISTORY: Significant for GERD, hypertension, cirrhosis of the liver, chronic hepatitis C infection, status post antiviral therapy with Vosevi for 3 months, just ended yesterday, chronic kidney disease, prior history of alcohol abuse. MEDICATIONS: At home: Xanax, metoprolol, Lasix, [place], Zyloprim, Protonix, Folic acid, Feosol, Aldactone, Vosevi. ALLERGIES: WELLBUTRIN. SOCIAL HISTORY: Chronic smoker. Heavy alcohol use in the past. Quit drinking a few months ago. REVIEW OF SYSTEMS: CARDIOPULMONARY: No chest pain, shortness of breath. GENITOURINARY: No dysuria or hematuria. MUSCULOSKELETAL: Unremarkable. SKIN: Unremarkable. ENDOCRINE: Unremarkable. PSYCHIATRIC: Unremarkable. ENT/VISION: Unremarkable. NEUROLOGICAL: Unremarkable. CONSTITUTIONAL: No recent weight loss. No fever, chills, night sweats. PHYSICAL EXAMINATION: VITAL SIGNS: Blood pressure 160/89. Pulse 91. Temperature 98.8. HEENT: Unremarkable. Conjunctivae pink. Sclerae anicteric. Oral cavity no lesions. NECK: No JVD or lymph node enlargement. CHEST: Clear to auscultation. HEART: Regular rate and rhythm. ABDOMEN: Soft. Bowel sounds are positive. It was slightly distended. There was diffuse mild tenderness around the abdomen. EXTREMITIES: No pedal edema. SKIN no rashes. NEUROLOGIC: Alert and oriented x3. No focal deficits. LABS: Done, WBC 15.9, hemoglobin 9.2, platelets 106. Basic metabolic panel is within normal limits. BUN is 24, creatinine 1.6. ALT, AST, T-bilirubin and alkaline phosphatase are within normal limits. IMPRESSION: 1. Cirrhosis of the liver/chronic hepatitis C infection/prior history of heavy alcohol use with gradual decompensation. The patient with refractory ascites requiring paracentesis almost once every 2-3 weeks. Last one was done this morning and 7.5 L of fluid was removed. 2. Chronic hepatitis C infection on treatment with antiviral therapy with Vosevi which ended yesterday and she received treatment for 3 months. 3. Diffuse abdominal pain which is improving after the paracentesis. 4. Chronic kidney disease Stage III. Nephrology following the patient closely on an outpatient basis. RECOMMENDATIONS: 1. Continue with the current diuretic regimen. 2. Low-salt diet. 3. We will repeat hepatitis C viral RNA to see for an end of treatment response in 1-2 weeks and patient has an outpatient appointment to see them in the office on June 25. Thank you for this consultation. MMODL / IJN: [id number] /
[2019-06-14] MEDS: MORPHINE SULFATE 4 MG/ML SYRINGE IV PRN ×2 (04:17→13:45)
[2019-06-14] MEDS: ALPRAZolam 0.25 MG TAB PO PRN (08:55)
[2019-06-14] MEDS: HYDROcodone/APAP 10-325MG 1 EACH TAB PO PRN (08:55)
[2019-06-14] MEDS: FERROUS SULFATE 325 MG TAB PO SCH (08:56)
[2019-06-14] MEDS: SPIRONOLACTONE 25 MG TAB PO SCH (08:56)
[2019-06-14] MEDS: NICOTINE 14MG/24HR PATCH TRANSDERM SCH (08:56)
[2019-06-14] MEDS: PANTOPRAZOLE 40 MG TABLET PO SCH (08:57)
[2019-06-14] MEDS: FUROSEMIDE 40 MG TAB PO SCH (08:57)
[2019-06-14] MEDS: ALLOPURINOL 100 MG TAB PO SCH (08:57)
[2019-06-14] MEDS: METOPROLOL TARTRATE 25 MG TAB PO SCH (08:57)
[2019-06-14] MEDS: FOLIC ACID 1 MG TAB PO SCH (08:57)
[2019-06-14 08:58] LABS: Basophils % (A) 0 %; Eosinophils # (A) 0.1 k/uL (0-0.7); Eosinophils % (A) 3 %; HCT 25.6 % (34.0-46.0); HGB 8.8 gm/dL (11.4-16.0); Lymphocytes # (A) 1.5 k/uL (1.0-4.8); Lymphocytes % (A) 40 %; MCH 32.9 pg (25.0-35.0); MCHC 34.3 g/dL (31.0-37.0); MCV 95.8 fL (80.0-100.0); Mean Platelet Volume 8.8; Monocytes # (A) 0.3 k/uL (0-1.0); Monocytes % (A) 8 %; Neutrophils # (A) 1.7 k/uL (1.3-7.7); Neutrophils % (A) 46 %; Platelet Count 100 k/uL (150-450); Poikilocytosis Slight; RBC 2.67 m/uL (3.80-5.40); RDW 15.4 % (11.5-15.5); WBC 3.8 k/uL (3.8-10.6)
[2019-06-14 09:38] LABS: Calcium 8.1 mg/dL (8.4-10.2); Potassium 3.7 mmol/L (3.5-5.1); Total Bilirubin 0.4 mg/dL (0.2-1.3); Total Protein 4.7 g/dL (6.3-8.2)
--- NOTE | 2019-06-14 12:57 | US ---
EXAMINATION TYPE: US venous doppler duplex LE BI DATE OF EXAM: 06/14/2019 10:36 AM COMPARISON: 04/02/2019 CLINICAL HISTORY: 54-year-old female increased swelling to lower extremities.. left ankle swelling. No hx blood clots. Not on blood thinners. SIDE PERFORMED: Bilateral TECHNIQUE: The lower extremity deep venous system is examined utilizing real time linear array sonog radha with graded compression, doppler sonography and color-flow sonography. FINDINGS: VESSELS IMAGED: External Iliac Vein (EIV) Common Femoral Vein Deep Femoral Vein Greater Saphenous Vein * Femoral Vein Popliteal Vein Small Saphenous Vein * Proximal Calf Veins (* superficial vessels) Right Leg: Negative for DVT. Complex cystic appearing lesion visualized posterior knee - 4.7 x 2.1 x 2.0 cm. (Versus 4.7 x 2.4 x 1.5 cm previously). Left Leg: Negative for DVT IMPRESSION: 1. No evidence for DVT within the bilateral lower extremities imaged from the groin to the upper calv es. 2. Moderate-sized, mildly complex Rogers's cyst redemonstrated on the right measuring up to 4.7 cm.
--- NOTE | 2019-06-14 13:56 | P.DS ---
Providers Date of admission: 06/12/19 14:00 Expected date of discharge: 06/14/19 Attending physician: Kel Mason Consults: 06/12/19 15:47 Consult Physician Routine Consulting Provider: Livia Mcdaniel Consult Reason/Comments: Established patient recurrent ascites Do you want consulting provider notified?: Yes Primary care physician: Kel Isabella [facility] Course: Discharge diagnosis 1. Increased abdominal distention or shortness of breath secondary to abdominal ascites. Status post paracentesis on 05/29/2019, 6.4 L removed. Interventional radiology consulted for paracentesis. Paracentesis performed on 06/12/19, 7.5 L removed. Respiratory symptoms have subsided. Per GI services continue with current diuretic regime maintain on low-salt diet repeat hepatitis C viral RNA to see for end of treatment response in 1-2 weeks patient to follow-up with GI services outpatient 2. History of chronic pain. Home medications resumed. 3. History of liver cirrhosis 4. History of essential hypertension 5. Chronic kidney disease stage III. She does follow with nephrology services 6. History of hepatitis C 7. Anemia of chronic kidney disease 8. Thrombocytopenia secondary to liver disease. 9. History of nicotine dependence. Current every day smoker, nicotine patch ordered. Discussed Smoking cessation with patient greater than 3 minutes. 10. Hematuria present on UA on admission to the emergency room. Patient was instructed on previous admission to follow-up with gynecology, patient states she did not follow-up. Patient denies any visual hematuria in urine. Discussed with patient's PCP follow-up outpatient 11. Increased edema to bilateral lower extremities. Venous Doppler completed showing no evidence for DVT Hospital course Progress Note Date: 06/13/19 Patient is a 54-year-old female who presented to the emergency room complaining of "belly full of fluid and shortness of breath." Patient has a history of ascites and was received last outpatient paracentesis on 05/29/2018 were 6.4 L of fluid was taken off of the abdomen. Patient is also complaining of some abdominal pain and cramping, patient states is typical symptoms of ascites for her. Patient reports shortness of breath likely due to the increase in abdominal swelling. Patient has a known history of hepatitis C with liver cirrhosis, chronic kidney disease stage III, hypertension, chronic pain and anemia. Patient denies chest pain, patient denies cough, patient denies fatigue, denies nausea, vomiting, fever and chills. Patient denies urinary burning, frequency, or hematuria. Interventional radiology has been consulted. Paracentesis to be arranged. On 06/13/2019, patient alert and oriented 3, resting in bed. Patient denies chest pain shortness of breath. Ultrasound guided paracentesis performed on 06/12/19, 7.5 liters removed. Complains of some abdominal tenderness in the upper quadrant, otherwise abdomen is soft nontender, nondistended. Tolerating diet, having normal BMs denies any problems with urination. 06/14/2019 patient's alert and oriented 3 resting comfortably in bed. Patient having some abdominal discomfort. Venous Doppler completed showing no evidence for DVT. Patient discussed that she is ready to go home. Patient will be DC'd home and to follow-up outpatient with PCP for further management of hematuria. Patient to also follow up with GI services for further management of chronic ascites Patient Condition at Discharge: Stable Plan - Discharge Summary Discharge Rx Participant: No New Discharge Prescriptions: Continue Metoprolol Tartrate 25 mg PO DAILY ALPRAZolam [Xanax] 0.25 mg PO BID PRN PRN Reason: Anxiety HYDROcodone/APAP 10-325MG [[place] 10-325] 1 tab PO BID Furosemide [Lasix] 40 mg PO DAILY Pantoprazole Sodium [Protonix] 40 mg PO DAILY Allopurinol [Zyloprim] 100 mg PO DAILY Folic Acid 1 mg PO DAILY Spironolactone [Aldactone] 50 mg PO DAILY #30 tab Ferrous Sulfate [Feosol] 325 mg PO BID #60 tab Sofosbuvir/Velpatas/Voxilaprev [Vosevi 400-100-100 mg Tablet] 1 tablet PO DIRECTED Discharge Medication List ALPRAZolam [Xanax] 0.25 mg PO BID PRN 09/13/18 [History] Metoprolol Tartrate 25 mg PO DAILY 09/13/18 [History] Furosemide [Lasix] 40 mg PO DAILY 11/21/18 [History] HYDROcodone/APAP 10-325MG [[place] 10-325] 1 tab PO BID 11/21/18 [History] Allopurinol [Zyloprim] 100 mg PO DAILY 01/12/19 [History] Pantoprazole Sodium [Protonix] 40 mg PO DAILY 01/12/19 [History] Folic Acid 1 mg PO DAILY 02/13/19 [History] Ferrous Sulfate [Feosol] 325 mg PO BID #60 tab 03/08/19 [Rx] Spironolactone [Aldactone] 50 mg PO DAILY #30 tab 03/08/19 [Rx] Sofosbuvir/Velpatas/Voxilaprev [Vosevi 400-100-100 mg Tablet] 1 tablet PO DIRECTED 04/13/19 [History] Follow up Appointment(s)/Referral(s): Kel Mason MD [Primary Care Provider] - 1-2 days Livia Mcdaniel MD [STAFF PHYSICIAN] - 1 Week Activity/Diet/Wound Care/Special Instructions: Activity as tolerated Diet heart healthy Discharge Disposition: HOME SELF-CARE
[2019-06-14] MEDS: SODIUM CHLORIDE 0.9% 1,000 ML IV SCH (15:14)
[2019-06-14 15:18] VITALS: BP 126/80; PULSE 70; RESP 20; TEMP 97.9
== END 2019-06-14 15:29 | disposition home or self-care (01) ==
LOC: EC 11:46 → 1SOBS 14:00 → 4MS4W 16:08
PROVIDERS: ADMIT Internal Medicine; ATTEND Internal Medicine
DX: K70.31 Alcoholic cirrhosis of liver with ascites (principal); J44.9 Chronic obstructive pulmonary disease, unspecified; G89.29 Other chronic pain; I12.9 Hypertensive chronic kidney disease with stage 1 through stage 4 chronic kidney disease, or unspecified chronic kidney disease; D63.1 Anemia in chronic kidney disease; N18.4 Chronic kidney disease, stage 4 (severe); D69.59 Other secondary thrombocytopenia; F17.200 Nicotine dependence, unspecified, uncomplicated; R60.0 Localized edema; K21.9 Gastro-esophageal reflux disease without esophagitis; Z87.440 Personal history of urinary (tract) infections; K76.6 Portal hypertension; B18.2 Chronic viral hepatitis C; Z87.828 Personal history of other (healed) physical injury and trauma; M54.5 Low back pain; F32.9 Major depressive disorder, single episode, unspecified; F41.9 Anxiety disorder, unspecified; Z79.899 Other long term (current) drug therapy; Z79.891 Long term (current) use of opiate analgesic; Z88.8 Allergy status to other drugs, medicaments and biological substances; Z80.9 Family history of malignant neoplasm, unspecified; Z82.49 Family history of ischemic heart disease and other diseases of the circulatory system; Z82.0 Family history of epilepsy and other diseases of the nervous system
CPT/HCPCS: 96376 ×3; 96374; 99285; 36415; 93005; 80053 ×3; 82150; 83690; 85025 ×3; 85610; 85730; 81001; 49083; 93970; G0378 ×3; S4990 ×2; J2270 ×4; P9047

== ENCOUNTER 2019-06-26 08:52 | Day surgery (SDC) | payer OTHER ==
[2019-06-26 09:22] LABS: Mean Platelet Volume 7.3; Platelet Count 138 k/uL (150-450)
[2019-06-26 09:23] VITALS: RESP 16; TEMP 98.3
[2019-06-26 09:27] LABS: INR 1.1 (<1.2); Prothrombin Time 11.7 sec (9.0-12.0)
[2019-06-26] MEDS: ALBUMIN HUMAN 25% 50 ML in EMPTY BAG 1 BAG IVPB SCH ×4 (09:46→11:15)
[2019-06-26 11:14] VITALS: BP 129/81; PULSE 63
--- NOTE | 2019-06-26 12:48 | US ---
Therapeutic paracentesis. DATE OF EXAM: 06/26/2019 CLINICAL HISTORY: Ascites The procedure was discussed with the patient. The risks, complications, benefits, and alternatives we re discussed and any questions were answered. Informed consent was obtained. The patient was placed s upine on the ultrasound table and prepped and draped in the usual sterile fashion. All elements of maximal barrier technique were utilized. Under ultrasound guidance, access into the right lower quadrant was obtained, via the paracentesis catheter system and direct ultrasound guidanc e. Approximately 3.6 liters of straw-colored fluid was removed. The patient was stable throughout the pr ocedure and remained stable upon discharge from Department of Radiology. IMPRESSION: Successful therapeutic paracentesis under ultrasound guidance.
== END 2019-06-26 11:10 | disposition home or self-care (01) ==
LOC: RADPROMAIN 08:52
PROVIDERS: ATTEND Internal Medicine
DX: R18.8 Other ascites (principal)
CPT/HCPCS: 82565; 84520; 85049; 85610; 36415; 49083; P9047

== ENCOUNTER 2019-07-08 22:48 | Inpatient (IN) | payer OTHER ==
--- NOTE | 2019-07-08 23:45 | ED ---
General Adult HPI - General Chief complaint: Extremity Problem,Nontraumatic Stated complaint: SOB, swollen feet, unable to urinate Time Seen by Provider: 07/08/19 23:25 Source: patient Mode of arrival: ambulatory Limitations: no limitations - History of Present Illness Initial comments: Dictation was produced using [employer] dictation software. please excuse any grammatical, word or spelling errors. Chief Complaint: 54-year-old female past medical history of cirrhotic liver presents with shortness of breath and lower extremity swelling. History of Present Illness: Patient 54-year-old female she has past medical history of cirrhotic liver. Patient states over the last several days she's been having worsening lower show any swelling and shortness of breath. Patient gets frequent paracenteses approximately one every 3-4 weeks. Patient last had paracentesis 2 weeks ago. She was trying to get an appointment to get a paracentesis performed sooner. States her shortness breath has been getting slightly worse suspicion with exertion. Patient also has lower extremity swelling. States her shortness of breath is slightly worse with lying flat. Patient has some abdominal pain that she states is chronic. She denies any fever, chills or night sweats. The ROS documented in this emergency department record has been reviewed and confirmed by me. Those systems with pertinent positive or negative responses have been documented in the HPI. All other systems are other negative and/or noncontributory. PHYSICAL EXAM: General Impression: Alert and oriented x3, not in acute distress HEENT: Normocephalic atraumatic, extra-ocular movements intact, pupils equal and reactive to light bilaterally, mucous membranes moist. Cardiovascular: Heart regular rate and rhythm, S1&S2 audible, no murmurs, rubs or gallops Chest: Lungs clear to auscultation bilaterally, no rhonchi, no wheeze, no rales Abdomen: Bowel sounds present, abdomen soft, non-tender, non-distended, no organomegaly, positive fluid wave Musculoskeletal: Pulses present and equal in all extremities, 2+ pitting edema bilaterally to the lower extremities Motor: no focal deficits noted Neurological: CN II-XII grossly intact, no focal motor or sensory deficits noted Skin: Intact with no visualized rashes Psych: Normal affect and mood ED course: 54-year-old female presents with chief complaint of lower extremity swelling and dyspnea. As upon arrival are within acceptable limits. Patient not dyspneic upon initial evaluation. Laboratory evaluation obtained. Hemoglobin of 8.8 which appears to be patient's baseline. Rest of CBC unremarkable. Coag panel unremarkable. Metabolic panel shows creatinine of 2.4 with a BUN of 26. Prematurity peptide is 3000. Clinical presentation consistent with acute kidney injury and mild heart failure. Patient is clinically dyspneic at this time. Patient given intravenous fluids. We will put interventional radiology on consultation for paracentesis as well. Nephro consult for acute kidney injury. Cardiac consult for heart failure. Patient given fluids patient resting comfortably at bedside. No indication for emergent paracentesis at this time. EKG interpretation: Ventricular rate 66, normal sinus rhythm,. 160, care is 80, QTc 452. No GA prolongation, no QTC prolongation, no ST or T-wave changes noted. Overall, this EKG is unremarkable - Related Data Home Medications Medication Instructions Recorded Confirmed ALPRAZolam [Xanax] 0.25 mg PO BID PRN 09/13/18 07/08/19 Metoprolol Tartrate 25 mg PO DAILY 09/13/18 07/08/19 Furosemide [Lasix] 40 mg PO DAILY 11/21/18 07/08/19 HYDROcodone/APAP 10-325MG [[place] 1 tab PO BID 11/21/18 07/08/19 10-325] Allopurinol [Zyloprim] 100 mg PO BID 01/12/19 07/08/19 Pantoprazole Sodium [Protonix] 40 mg PO DAILY 01/12/19 07/08/19 Calcitriol 0.25 mcg PO MO 07/08/19 07/08/19 Ferrous Sulfate [Feosol] 325 mg PO DAILY 07/08/19 07/08/19 Folic Acid 0.4 mg PO DAILY 07/08/19 07/08/19 Magnesium Oxide 400 mg PO DAILY 07/08/19 07/08/19 hydrALAZINE HCL 10 mg PO BID 07/08/19 07/08/19 Allergies Allergy/AdvReac Type Severity Reaction Status Date / Time bupropion [From Wellbutrin] AdvReac seizure Verified 07/08/19 23:29 Review of Systems ROS Statement: Those systems with pertinent positive or pertinent negative responses have been documented in the HPI. ROS Other: All systems not noted in ROS Statement are negative. Past Medical History Past Medical History: COPD, GERD/Reflux, Hypertension, Liver Disease, Renal Disease Additional Past Medical History / Comment(s): Pt recently admitted to [facility] on 03/02/19 with gastroenteritis/nausea/vomiting/diarrhea/abdominal pain/ascities/UTI and had negative Cdiff. Other hx: Hep C, alcoholic liver cirrhosis, portal HTN, abdominal ascities, IGa nephropathy, thromobocytopenia, CKD stage IV, anemia, severe protein calorie malnutrition, frequent diarrhea, low back pain from an injury. History of Any Multi-Drug Resistant Organisms: None Reported Past Surgical History: Tubal Ligation Additional Past Surgical History / Comment(s): multiple Paracentesis Past Anesthesia/Blood Transfusion Reactions: No Reported Reaction Additional Past Anesthesia/Blood Transfusion Reaction / Comment(s): claustrophobia Past Psychological History: Anxiety, Depression Smoking Status: Current every day smoker Past Alcohol Use History: None Reported Past Drug Use History: None Reported - Past Family History Father History Unknown: Yes Family Medical History: Cancer Additional Family Medical History / Comment(s): Unk type of cancer. Father is . Mother History Unknown: Yes Family Medical History: AFIB, Congestive Heart Failure (CHF), Myocardial Infarction (LA), Seizure Disorder Additional Family Medical History / Comment(s): Mother had a LA at the age of 52 yrs. She is . General Exam Limitations: no limitations Course Vital Signs 07/08/19 22:53 Temperature 98.3 F Pulse Rate 68 Respiratory 18 Rate Blood Pressure 155/87 O2 Sat by Pulse 98 Oximetry Medical Decision Making - Lab Data Result diagrams: 07/08/19 23:41 07/08/19 23:41 Lab Results 07/08/19 07/08/19 07/08/19 Range/Units 23:41 23:41 23:41 WBC 4.6 (3.8-10.6) k/uL RBC 2.74 L (3.80-5.40) m/uL Hgb 8.8 L (11.4-16.0) gm/dL Hct 25.8 L (34.0-46.0) % MCV 94.1 (80.0-100.0) fL MCH 32.2 (25.0-35.0) pg MCHC 34.2 (31.0-37.0) g/dL RDW 14.0 (11.5-15.5) % Plt Count 102 L (150-450) k/uL Neutrophils % 44 % Lymphocytes % 40 % Monocytes % 8 % Eosinophils % 4 % Basophils % 0 % Neutrophils # 2.0 (1.3-7.7) k/uL Lymphocytes # 1.9 (1.0-4.8) k/uL Monocytes # 0.4 (0-1.0) k/uL Eosinophils # 0.2 (0-0.7) k/uL Basophils # 0.0 (0-0.2) k/uL Poikilocytosis Slight PT (9.0-12.0) sec INR (<1.2) APTT (22.0-30.0) sec Sodium 138 (137-145) mmol/L Potassium 4.3 (3.5-5.1) mmol/L Chloride 111 H (98-107) mmol/L Carbon Dioxide 22 (22-30) mmol/L Anion Gap 5 mmol/L BUN 26 H (7-17) mg/dL Creatinine 2.41 H (0.52-1.04) mg/dL Est GFR (CKD-EPI)AfAm 26 (>60 ml/min/1.73 sqM) Est GFR (CKD-EPI)NonAf 22 (>60 ml/min/1.73 sqM) Glucose 80 (74-99) mg/dL Calcium 8.2 L (8.4-10.2) mg/dL NT-Pro-B Natriuret Pep 2990 pg/mL 07/08/19 Range/Units 23:41 WBC (3.8-10.6) k/uL RBC (3.80-5.40) m/uL Hgb (11.4-16.0) gm/dL Hct (34.0-46.0) % MCV (80.0-100.0) fL MCH (25.0-35.0) pg MCHC (31.0-37.0) g/dL RDW (11.5-15.5) % Plt Count (150-450) k/uL Neutrophils % % Lymphocytes % % Monocytes % % Eosinophils % % Basophils % % Neutrophils # (1.3-7.7) k/uL Lymphocytes # (1.0-4.8) k/uL Monocytes # (0-1.0) k/uL Eosinophils # (0-0.7) k/uL Basophils # (0-0.2) k/uL Poikilocytosis PT 11.1 (9.0-12.0) sec INR 1.1 (<1.2) APTT 28.8 (22.0-30.0) sec Sodium (137-145) mmol/L Potassium (3.5-5.1) mmol/L Chloride (98-107) mmol/L Carbon Dioxide (22-30) mmol/L Anion Gap mmol/L BUN (7-17) mg/dL Creatinine (0.52-1.04) mg/dL Est GFR (CKD-EPI)AfAm (>60 ml/min/1.73 sqM) Est GFR (CKD-EPI)NonAf (>60 ml/min/1.73 sqM) Glucose (74-99) mg/dL Calcium (8.4-10.2) mg/dL NT-Pro-B Natriuret Pep pg/mL Disposition Clinical Impression: Heart failure, LITZY (acute kidney injury) Disposition: ADMITTED IP TO THIS HOSP Condition: Fair Referrals: Kel Mason MD [Primary Care Provider] - 1-2 days Decision Time: 00:39
--- NOTE | 2019-07-08 23:58 | XR ---
EXAMINATION TYPE: XR chest 2V DATE OF EXAM: 07/08/2019 COMPARISON: 04/02/2019 HISTORY: Leg swelling TECHNIQUE: Frontal and lateral views of the chest are obtained. FINDINGS: Heart and mediastinum are normal. Lungs are clear. Diaphragm is normal. Bony thorax appear s normal. IMPRESSION: Normal chest. No change.
[2019-07-09 00:01] LABS: Basophils % (A) 0 %; Eosinophils # (A) 0.2 k/uL (0-0.7); Eosinophils % (A) 4 %; HCT 25.8 % (34.0-46.0); HGB 8.8 gm/dL (11.4-16.0); INR 1.1 (<1.2); Lymphocytes # (A) 1.9 k/uL (1.0-4.8); Lymphocytes % (A) 40 %; MCH 32.2 pg (25.0-35.0); MCHC 34.2 g/dL (31.0-37.0); MCV 94.1 fL (80.0-100.0); Mean Platelet Volume 6.5; Monocytes # (A) 0.4 k/uL (0-1.0); Monocytes % (A) 8 %; Neutrophils % (A) 44 %; Partial Thromboplastin Time 28.8 sec (22.0-30.0); Platelet Count 102 k/uL (150-450); Poikilocytosis Slight; Prothrombin Time 11.1 sec (9.0-12.0); RBC 2.74 m/uL (3.80-5.40); WBC 4.6 k/uL (3.8-10.6)
[2019-07-09 00:03] LABS: Calcium 8.2 mg/dL (8.4-10.2); Potassium 4.3 mmol/L (3.5-5.1)
[2019-07-09] MEDS ORDERED: NALOXONE 0.4 MG/ML 1 ML VIAL IV PRN (00:39)
[2019-07-09] MEDS ORDERED: SODIUM CHLORIDE 0.9% 1,000 ML IV SCH (00:45)
[2019-07-09] MEDS: ALPRAZolam 0.25 MG TAB PO PRN ×3 (01:24→23:41)
[2019-07-09] MEDS ORDERED: HYDROcodone/APAP 10-325MG 1 EACH TAB PO SCH (02:34)
[2019-07-09] MEDS: SODIUM CHLORIDE 0.9% 1,000 ML IV SCH (02:49)
[2019-07-09] MEDS: HYDROcodone/APAP 10-325MG 1 EACH TAB PO PRN ×2 (02:55→14:16)
[2019-07-09] MEDS ORDERED: FUROSEMIDE 40 MG TAB PO SCH (09:00)
[2019-07-09] MEDS ORDERED: NON FORMULARY DRUG (Folic Acid [Folic Acid] 0.4 MG) PO SCH (09:00)
[2019-07-09] MEDS: hydrALAZINE HCL 10 MG TAB PO SCH ×2 (09:01→21:49)
[2019-07-09] MEDS: ALLOPURINOL 100 MG TAB PO SCH ×2 (09:01→21:48)
[2019-07-09] MEDS: FERROUS SULFATE 325 MG TAB PO SCH (09:01)
[2019-07-09] MEDS: METOPROLOL TARTRATE 25 MG TAB PO SCH (09:01)
[2019-07-09] MEDS: PANTOPRAZOLE 40 MG TABLET PO SCH (09:01)
[2019-07-09] MEDS: MAGNESIUM OXIDE 400 MG TAB PO SCH (09:02)
[2019-07-09] MEDS: CALCITRIOL 0.25 MCG CAP PO SCH (09:02)
[2019-07-09 10:17] LABS: Basophils # (A) 0.1 k/uL (0-0.2); Basophils % (A) 3 %; Eosinophils # (A) 0.1 k/uL (0-0.7); Eosinophils % (A) 4 %; HCT 25.3 % (34.0-46.0); HGB 8.1 gm/dL (11.4-16.0); Hypochromasia Slight; Lymphocytes # (A) 1.6 k/uL (1.0-4.8); Lymphocytes % (A) 44 %; MCV 96.9 fL (80.0-100.0); Mean Platelet Volume 8.3; Monocytes # (A) 0.3 k/uL (0-1.0); Monocytes % (A) 8 %; Neutrophils # (A) 1.5 k/uL (1.3-7.7); Neutrophils % (A) 40 %; Poikilocytosis Slight; RBC 2.61 m/uL (3.80-5.40); RDW 14.4 % (11.5-15.5); WBC 3.7 k/uL (3.8-10.6)
[2019-07-09 10:19] LABS: Albumin 2.2 g/dL (3.5-5.0); Calcium 8.1 mg/dL (8.4-10.2); Potassium 4.1 mmol/L (3.5-5.1); Total Bilirubin 0.6 mg/dL (0.2-1.3); Total Protein 5.2 g/dL (6.3-8.2)
[2019-07-09] MEDS: ONDANSETRON 4 MG/2 ML VIAL IVP PRN (10:21)
[2019-07-09] MEDS: MORPHINE SULFATE 2 MG/ML SYRINGE IVP PRN ×3 (10:21→21:49)
--- NOTE | 2019-07-09 10:40 | P.HPIM ---
History of Present Illness H&P Date: 07/09/19 Chief Complaint: Increased shortness of breath abdominal ascites acute kidney injury This is a 54-year-old female patient who presented with complaints of increased shortness of breath and increased abdominal ascites. Patient has a known past medical history of liver cirrhosis requiring frequent paracentesis. Last paracentesis was approximately 2 weeks ago. Patient reports over the past week she's noticed increased swelling to lower extremities along with increased ab dominal ascites patient also complains that her urine has been diminished. Patient does have known past medical history of COPD, GERD, hypertension, liver disease, renal disease, hepatitis C, portal hypertension, anxiety depression and ex-smoker. Chest x-ray completed showing normal chest. No change. EKG completed showing normal sinus rhythm and normal EKG. Patient's creatinine elevated to consult 1 bun 26 this is elevated compared to baseline. BNP 2990. At this time patient is complaining of some shortness of breath. IR has been consulted for possible paracentesis. Cardiology, nephrology and GI services consulted. Patient denies chest pain. Patient denies nausea vomiting or diarr hea. Patient denies any urinary burning or frequency. Review of Systems Please refer to HPI otherwise unremarkable Past Medical History Past Medical History: COPD, GERD/Reflux, Hypertension, Liver Disease, Renal Disease Additional Past Medical History / Comment(s): Pt recently admitted to [facility] on 03/02/19 with gastroenteritis/nausea/vomiting/diarrhea/abdominal pain/ascities/UTI and had negative Cdiff. Other hx: Hep C, alcoholic liver cirrhosis, portal HTN, abdominal ascities, IGa nephropathy, thromobocytopenia, CKD stage IV, anemia, severe protein calorie malnutrition, frequent diarrhea, low back pain from an injury. History of Any Multi-Drug Resistant Organisms: None Reported Past Surgical History: Tubal Ligation Additional Past Surgical History / Comment(s): multiple Paracentesis Past Anesthesia/Blood Transfusion Reactions: No Reported Reaction Additional Past Anesthesia/Blood Transfusion Reaction / Comment(s): claustrophobia Past Psychological History: Anxiety, Depression Additional Psychological History / Comment(s): Pt resides with significant other in an apartment. She does not drive. She is otherwise independent. Smoking Status: Current every day smoker Past Alcohol Use History: None Reported Additional Past Alcohol Use History / Comment(s): Started smoking at age 12, used to smoke 1 ppd but has cut down to 1/2 ppd. Pt quit drinking July 2018, used to drink rum & beer-8 beers daily & liquor also daily Past Drug Use History: None Reported - Past Family History Father History Unknown: Yes Family Medical History: Cancer Additional Family Medical History / Comment(s): Unk type of cancer. Father is . Mother History Unknown: Yes Family Medical History: AFIB, Congestive Heart Failure (CHF), Myocardial Infarction (VT), Seizure Disorder Additional Family Medical History / Comment(s): Mother had a VT at the age of 52 yrs. She is . Medications and Allergies Home Medications Medication Instructions Recorded Confirmed Type ALPRAZolam [Xanax] 0.25 mg PO BID PRN 09/13/18 07/08/19 History Metoprolol Tartrate 25 mg PO DAILY 09/13/18 07/08/19 History Furosemide [Lasix] 40 mg PO DAILY 11/21/18 07/08/19 History HYDROcodone/APAP 10-325MG [[place] 1 tab PO BID 11/21/18 07/08/19 History 10-325] Allopurinol [Zyloprim] 100 mg PO BID 01/12/19 07/08/19 History Pantoprazole Sodium [Protonix] 40 mg PO DAILY 01/12/19 07/08/19 History Calcitriol 0.25 mcg PO MO 07/08/19 07/08/19 History Ferrous Sulfate [Feosol] 325 mg PO DAILY 07/08/19 07/08/19 History Folic Acid 0.4 mg PO DAILY 07/08/19 07/08/19 History Magnesium Oxide 400 mg PO DAILY 07/08/19 07/08/19 History hydrALAZINE HCL 10 mg PO BID 07/08/19 07/08/19 History Allergies Allergy/AdvReac Type Severity Reaction Status Date / Time bupropion [From Wellbutrin] AdvReac seizure Verified 07/08/19 23:29 Physical Exam Vitals: Vital Signs Temp Pulse Pulse Resp BP BP Pulse Ox 07/09/19 07:00 97.5 F L 64 16 149/84 98 07/08/19 22:53 98.3 F 68 18 155/87 98 Intake and Output 07/08/19 07/09/19 07/09/19 22:59 06:59 14:59 Intake Total 280 Balance 280 Intake: Intake, IV Titration 80 Amount Sodium Chloride 0.9% 1, 80 000 ml @ 20 mls/hr IV . Q24H [facility] Rx#:[id number] Oral 200 Other: Voiding Method Toilet Weight 93.44 kg Head normocephalic Neck supple Lungs clear to auscultation bilaterally no wheezing or crackles Heart regular rate and rhythm S1-S2, no rub or gallop Abdomen rounded, abdominal ascites noted Extremities +1 bilateral lower extremity edema Neuro alert and orientated to 3 Results CBC & Chem 7: 07/09/19 09:02 07/09/19 09:02 Labs: Abnormal Lab Results - Last 24 Hours (Table) 07/08/19 07/08/19 07/09/19 Range/Units 23:41 23:41 09:02 WBC 3.7 L (3.8-10.6) k/uL RBC 2.74 L 2.61 L (3.80-5.40) m/uL Hgb 8.8 L 8.1 L (11.4-16.0) gm/dL Hct 25.8 L 25.3 L (34.0-46.0) % Plt Count 102 L (150-450) k/uL Chloride 111 H (98-107) mmol/L Carbon Dioxide (22-30) mmol/L BUN 26 H (7-17) mg/dL Creatinine 2.41 H (0.52-1.04) mg/dL Calcium 8.2 L (8.4-10.2) mg/dL Total Protein (6.3-8.2) g/dL Albumin (3.5-5.0) g/dL 07/09/19 Range/Units 09:02 WBC (3.8-10.6) k/uL RBC (3.80-5.40) m/uL Hgb (11.4-16.0) gm/dL Hct (34.0-46.0) % Plt Count (150-450) k/uL Chloride 111 H (98-107) mmol/L Carbon Dioxide 21 L (22-30) mmol/L BUN 28 H (7-17) mg/dL Creatinine 2.47 H (0.52-1.04) mg/dL Calcium 8.1 L (8.4-10.2) mg/dL Total Protein 5.2 L (6.3-8.2) g/dL Albumin 2.2 L (3.5-5.0) g/dL Thrombosis Risk Factor Assmnt - Choose All That Apply Each Factor Represents 1 point: Heart failure (<1month), Swollen legs (current) Thrombosis Risk Factor Assessment Total Risk Factor Score: 2 Thrombosis Risk Factor Assessment Level: Low Risk Assessment and Plan Assessment: 1. Increased abdominal ascites secondary to known liver disease. GI services have been consulted. IR consulted for possible paracentesis 2. Acute on chronic kidney disease stage III. Nephrology services have been consulted. Creatinine 2.41 and bun 28 3. Acute congestive heart failure. Cardiology services consulted. 2-D echo has been ordered 4. Anemia of chronic disease 5. History of chronic pain. Home medications resumed 6. History of liver cirrhosis 7. History of essential hypertension 8. History of hepatitis C 9. Thrombocytopenia secondary to liver disease 10. History of nicotine dependence. DVT prophylaxis SCDs. GI prophylaxis Protonix GI, cardiology and nephrology services consulted Time with Patient: Greater than 30 (Greater than 60% of the total time spent in counseling and coordination of care. I performed an examination of the patient and discussed their management with the Nurse Practitioner. I have reviewed the Nurse Practitioner's notes and agree with the documented findings and plan of care)
[2019-07-09 11:10] LABS: Platelet Count 94 k/uL (150-450)
--- NOTE | 2019-07-09 12:07 | CONS ---
CONSULTATION REASON FOR CONSULT: Renal failure. HISTORY OF PRESENT ILLNESS: Patient is a 54-year-old female who has a past history of chronic kidney disease NKF stage IIIB with baseline creatinine about 1.7-1.6 mg/dL. sec to Bx proven IgA, s/p steroids. Patient was admitted to the hospital with complaints of increasing shortness of breath and increased lower extremity edema over the past 1 week. She also stated that she had decreased urine output. No complaints of fever, chills, nausea, vomiting or abdominal pain. Serum creatinine was 2.41 on July 08. We have a prior creatinine on June 26 of 1.7 mg/dL. Patient states she was just seen in the office about 3 months ago and she was stable from a Nephrology standpoint. There has not been any change in the dose of her diuretics at home. Blood pressure has not been significantly low. Currently patient is maintained on IV Lasix. PAST MEDICAL HISTORY: CKD stage IIIB, secondary to nephrosclerosis, hypertension, history of hepatitis C, history of portal hypertension, COPD, gastroesophageal reflux disease, CKD mineral bone disorder, anemia of chronic disease. PAST SURGICAL HISTORY: Multiple paracentesis, tubal ligation. SOCIAL HISTORY: Patient is positive for smoking, no history of drug abuse or alcohol abuse. MEDICATIONS: At home prior to admission included Xanax, metoprolol, Lasix, Zyloprim, Protonix, calcitriol, iron, folic acid, magnesium, hydralazine. ALLERGIES: Include WELLBUTRIN, which causes seizures. REVIEW OF SYSTEMS: As per HPI. Other systems negative. PHYSICAL EXAMINATION: Patient is comfortable, awake, alert, oriented x3. She is not in any acute distress. Blood pressure was 151/97, heart rate 62 per minute, patient is afebrile. Examination of the heart S1, S2. Examination of the lungs, bilateral breath sounds are heard. There are crackles heard in the bases. Abdomen is soft, distended. Examination of the lower extremities shows edema 2+ bilaterally. HARP REGULATOR exam grossly intact. LABS: Show sodium 139, potassium 4.1, BUN 28, creatinine 2.47, hemoglobin 8.1 g/dL, albumin 2.2. ASSESSMENT: 1. Chronic kidney disease NKF stage IIIB, secondary to IgA nephropathy, status post biopsy in December of 2018 status post trial of steroids. Serum creatinine staying at about 1.6-1.7 mg/dL. 2. Acute kidney injury, mostly cardiorenal. No episodes of hypotension. 3. History of hepatitis B, liver cirrhosis and ETOH abuse. 4. History of chronic obstructive pulmonary disease. 5. Portal hypertension with recurrent paracentesis. 6. Gastroesophageal reflux disease. 7. Chronic kidney disease mineral bone disorder, continue Rocaltrol. 8. Anemia, rule out iron deficiency. PLAN: DC IV fluids. Maintain patient on IV Lasix. Repeat labs in a.m. Avoid any other nephrotoxic medications. Avoid hypotension. Check urinalysis. Continue with current dose of calcitriol. Check iron studies to workup the anemia. Thank you for this consultation. Will continue to follow the patient with you during her hospitalization. MMODL / IJN: [id number] / JUAN C
[2019-07-09] MEDS: FUROSEMIDE 10 MG/ML 4 ML VIAL IV SCH ×2 (12:32→21:49)
--- NOTE | 2019-07-09 12:34 | US ---
Therapeutic paracentesis. DATE OF EXAM: 07/09/2019 CLINICAL HISTORY: Ascites The procedure was discussed with the patient. The risks, complications, benefits, and alternatives we re discussed and any questions were answered. Informed consent was obtained. The patient was placed s upine on the ultrasound table and prepped and draped in the usual sterile fashion. All elements of maximal barrier technique were utilized. Under ultrasound guidance, access into the right lower quadrant was obtained, via the paracentesis catheter system and direct ultrasound guidanc e. Approximately 5.3 liters of straw-colored fluid was removed. The patient was stable throughout the pr ocedure and remained stable upon discharge from Department of Radiology. IMPRESSION: Successful therapeutic paracentesis under ultrasound guidance.
--- NOTE | 2019-07-09 13:32 | P.CRDCN ---
History of Present Illness History of present illness: This is a pleasant 54-year-old female past medical history significant for alcoholic liver cirrhosis, hepatitis C, hypertension, COPD, chronic kidney disease, portal hypertension, chronic ascites requiring frequent paracentesis and chronic nicotine dependence. She denies prior history of coronary artery disease and does not follow with a customs investigator for any reason. We have been asked to see her in consultation secondary heart failure. She presents to hospital with symptoms of increased abdominal girth and shortness of breath. She last underwent a paracentesis 06/26/2019 with 3L taken off. Typically, over the last 1 year she states she has been having a paracentesis every 3-4 weeks, however, she feels like she is retaining fluid much quicker recently. She also has not been urinating as frequently. She is complaining of abdominal fullness and discomfort with a full sensation of her upper chest and shortness of breath, worse with exertion or laying flat. She has been sleeping sitting up on the couch for comfort. She is scheduled for a paracentesis today. EKG reveals sinus mechanism with no acute ST or T-wave abnormalities. Chest xray is negative for an acute cardiopulmonary process. Laboratory data reviewed, WBC 3.7, hgb 8.1, plt 94, sodium 139, potassium 4.1, creatinine 2.47, proBNP 2990. Current daily cardiac medications include lasix 40 mg daily, hydralazine 10 mg BID and lopressor 25 mg daily. At the time of my exam: CONSTITUTIONAL: Denies fever. Denies chills. EYES: Denies blurred vision. Denies vision changes. Denies eye pain. EARS, NOSE, MOUTH & THROAT: Denies headache. Denies sore throat. Denies ear pain. CARDIOVASCULAR: Denies chest pain. Denies shortness of breath. Denies orthopnea. Denies PND. Denies palpitations. RESPIRATORY: Denies cough. GASTROINTESTINAL: Denies abdominal pain. Denies diarrhea. Denies constipation. Denies nausea. Denies vomiting. MUSCULOSKELETAL: Denies myalgias. INTEGUMENTARY: Denies pruitis. Denies rash. NEUROLOGIC: Denies numbness. Denies tingling. Denies weakness. PSYCHIATRIC: Denies anxiety. Denies depression. ENDOCRINE: Denies fatigue. Denies weight change. Denies polydipsia. Denies polyurina. GENITOURINARY: Denies burning, hematuria or urgency with micturation. HEMATOLOGIC: Denies history of anemia. Denies bleeding. Blood pressure 117/72 heart rate 67 afebrile maintaining oxygen saturation on r oom air GENERAL: This is a 54-year-old female in no apparent distress at the time of my examination. HEENT: Head is atraumatic, normocephalic. Pupils are equal, round. Sclerae anicteric. Conjunctivae are clear. Mucous membranes of the mouth are moist. Neck is supple. There is no jugular venous distention. No carotid bruit is heard. LUNGS: Clear to auscultation no wheezes, rales or rhonchi. No chest wall tenderness is noted on palpation or with deep breathing. HEART: Regular rate and rhythm without murmurs, rubs or gallops. S1 and S2 heard. ABDOMEN: Soft, nontender, distended and protrubrent. Bowel sounds are heard. EXTREMITIES: 1+ bilateral lower extremity pitting edema and no calf tenderness noted. VASCULAR: Radial and dorsalis pedis pulses palpated, no evidence of clubbing. NEUROLOGIC: Patient is awake, alert and oriented x3. ASSESSMENT Ascites secondary to chronic alcoholic liver cirrhosis Fluid overload secondary to chronic liver disease and acute kidney injury. Hepatitis C Acute on chronic renal failure Hypertension COPD Chronic nicotine dependence PLAN Recommend IV lasix 40 mg BID. Proceed with paracentesis as recommended. Lasix may need to be adjusted after paracentesis. Obtain 2D echocardiogram and doppler study to assess cardiac structure and function. Thank you kindly for this consultation. Nurse Practitioner note has been reviewed, I agree with a documented findings and plan of care. Patient was seen and examined. Past Medical History Past Medical History: COPD, GERD/Reflux, Hypertension, Liver Disease, Renal Disease Additional Past Medical History / Comment(s): Pt recently admitted to [facility] on 03/02/19 with gastroenteritis/nausea/vomiting/diarrhea/abdominal pain/ascities/UTI and had negative Cdiff. Other hx: Hep C, alcoholic liver cirrhosis, portal HTN, abdominal ascities, IGa nephropathy, thromobocytopenia, CKD stage IV, anemia, severe protein calorie malnutrition, frequent diarrhea, low back pain from an injury. History of Any Multi-Drug Resistant Organisms: None Reported Past Surgical History: Tubal Ligation Additional Past Surgical History / Comment(s): multiple Paracentesis Past Anesthesia/Blood Transfusion Reactions: No Reported Reaction Additional Past Anesthesia/Blood Transfusion Reaction / Comment(s): claustrophobia Past Psychological History: Anxiety, Depression Additional Psychological History / Comment(s): Pt resides with significant other in an apartment. She does not drive. She is otherwise independent. Smoking Status: Current every day smoker Past Alcohol Use History: None Reported Additional Past Alcohol Use History / Comment(s): Started smoking at age 12, used to smoke 1 ppd but has cut down to 1/2 ppd. Pt quit drinking July 2018, used to drink rum & beer-8 beers daily & liquor also daily Past Drug Use History: None Reported - Past Family History Father History Unknown: Yes Family Medical History: Cancer Additional Family Medical History / Comment(s): Unk type of cancer. Father is . Mother History Unknown: Yes Family Medical History: AFIB, Congestive Heart Failure (CHF), Myocardial Infarction (NH), Seizure Disorder Additional Family Medical History / Comment(s): Mother had a NH at the age of 52 yrs. She is . Medications and Allergies Home Medications Medication Instructions Recorded Confirmed Type ALPRAZolam [Xanax] 0.25 mg PO BID PRN 09/13/18 07/08/19 History Metoprolol Tartrate 25 mg PO DAILY 09/13/18 07/08/19 History Furosemide [Lasix] 40 mg PO DAILY 11/21/18 07/08/19 History HYDROcodone/APAP 10-325MG [[place] 1 tab PO BID 11/21/18 07/08/19 History 10-325] Allopurinol [Zyloprim] 100 mg PO BID 01/12/19 07/08/19 History Pantoprazole Sodium [Protonix] 40 mg PO DAILY 01/12/19 07/08/19 History Calcitriol 0.25 mcg PO MO 07/08/19 07/08/19 History Ferrous Sulfate [Feosol] 325 mg PO DAILY 07/08/19 07/08/19 History Folic Acid 0.4 mg PO DAILY 07/08/19 07/08/19 History Magnesium Oxide 400 mg PO DAILY 07/08/19 07/08/19 History hydrALAZINE HCL 10 mg PO BID 07/08/19 07/08/19 History Allergies Allergy/AdvReac Type Severity Reaction Status Date / Time bupropion [From Wellbutrin] AdvReac seizure Verified 07/08/19 23:29 Physical Exam Vitals: Vital Signs Temp Pulse Pulse Resp BP BP Pulse Ox 07/09/19 12:30 97.9 F 67 16 117/72 99 07/09/19 11:45 64 16 131/67 98 07/09/19 11:25 68 16 137/82 97 07/09/19 11:06 61 16 145/90 97 07/09/19 10:51 62 16 151/97 99 07/09/19 07:00 97.5 F L 64 16 149/84 98 07/08/19 22:53 98.3 F 68 18 155/87 98 Intake and Output 07/08/19 07/09/19 07/09/19 22:59 06:59 14:59 Intake Total 280 296 Balance 280 296 Intake: Intake, IV Titration 80 Amount Sodium Chloride 0.9% 1, 80 000 ml @ 20 mls/hr IV . Q24H [facility] Rx#:[id number] Oral 200 296 Other: Voiding Method Toilet Weight 93.44 kg Results 07/09/19 09:02 07/09/19 09:02 Cardiac Enzymes 07/09/19 Range/Units 09:02 AST 27 (14-36) U/L Coagulation 07/08/19 Range/Units 23:41 PT 11.1 (9.0-12.0) sec APTT 28.8 (22.0-30.0) sec CBC 07/08/19 07/09/19 Range/Units 23:41 09:02 WBC 4.6 3.7 L (3.8-10.6) k/uL RBC 2.74 L 2.61 L (3.80-5.40) m/uL Hgb 8.8 L 8.1 L (11.4-16.0) gm/dL Hct 25.8 L 25.3 L (34.0-46.0) % Plt Count 102 L 94 L (150-450) k/uL Comprehensive Metabolic Panel 07/08/19 07/09/19 Range/Units 23:41 09:02 Sodium 138 139 (137-145) mmol/L Potassium 4.3 4.1 (3.5-5.1) mmol/L Chloride 111 H 111 H (98-107) mmol/L Carbon Dioxide 22 21 L (22-30) mmol/L BUN 26 H 28 H (7-17) mg/dL Creatinine 2.41 H 2.47 H (0.52-1.04) mg/dL Glucose 80 96 (74-99) mg/dL Calcium 8.2 L 8.1 L (8.4-10.2) mg/dL AST 27 (14-36) U/L ALT 14 (9-52) U/L Alkaline Phosphatase 79 (38-126) U/L Total Protein 5.2 L (6.3-8.2) g/dL Albumin 2.2 L (3.5-5.0) g/dL Current Medications Generic Name Dose Route Start Last Admin Trade Name Freq PRN Reason Stop Dose Admin Hydrocodone Bitart/Acetaminophen 1 each 07/09/19 02:48 07/09/19 02:55 [place] 10 PO 1 each BID PRN Administration pain Allopurinol 100 mg 07/09/19 09:00 07/09/19 09:01 Zyloprim PO 100 mg BID [facility] Administration Alprazolam 0.25 mg 07/09/19 00:42 07/09/19 12:32 Xanax PO 0.25 mg BID PRN Administration Anxiety Calcitriol 0.25 mcg 07/09/19 09:00 07/09/19 09:02 Rocaltrol PO 0.25 mcg MO [facility] Administration Ferrous Sulfate 325 mg 07/09/19 09:00 07/09/19 09:01 Feosol PO 325 mg DAILY [facility] Administration Furosemide 40 mg 07/09/19 10:15 07/09/19 12:32 Lasix IV 40 mg Q12HR [facility] Administration Hydralazine HCl 10 mg 07/09/19 09:00 07/09/19 09:01 Apresoline PO 10 mg BID [facility] Administration Sodium Chloride 1,000 mls @ 20 mls/hr 07/09/19 02:45 07/09/19 02:49 Saline 0.9% IV Not Given .Q24H [facility] Albumin Human 50 ml/ IV 50 mls @ 200 mls/hr 07/09/19 12:00 Solution IVPB 07/09/19 12:59 Q15M [facility] Magnesium Oxide 400 mg 07/09/19 09:00 07/09/19 09:02 Mag-Ox PO 400 mg DAILY [facility] Administration Metoprolol Tartrate 25 mg 07/09/19 09:00 07/09/19 09:01 Lopressor PO 25 mg DAILY [facility] Administration Morphine Sulfate 2 mg 07/09/19 09:15 07/09/19 10:21 Morphine Sulfate (Inj) IVP 2 mg Q4H PRN Administration Pain/Discomfort Naloxone HCl 0.2 mg 07/09/19 00:39 Narcan IV Q2M PRN Opioid Reversal Ondansetron HCl 4 mg 07/09/19 09:14 07/09/19 10:21 Zofran IVP 4 mg Q6HR PRN Administration Nausea And Vomiting Pantoprazole Sodium 40 mg 07/09/19 09:00 07/09/19 09:01 Protonix PO 40 mg DAILY [facility] Administration Intake and Output 07/08/19 07/09/19 07/09/19 22:59 06:59 14:59 Intake Total 280 296 Balance 280 296 Intake: Intake, IV Titration 80 Amount Sodium Chloride 0.9% 1, 80 000 ml @ 20 mls/hr IV . Q24H [facility] Rx#:[id number] Oral 200 296 Other: Voiding Method Toilet Weight 93.44 kg 07/09/19 09:02 07/09/19 09:02
[2019-07-09] MEDS: ALBUMIN HUMAN 25% 50 ML in EMPTY BAG 1 BAG IVPB SCH ×4 (14:03→17:05)
[2019-07-09 14:15] VITALS: BMI 36.5
--- NOTE | 2019-07-09 16:25 | CONS ---
CONSULTATION DATE OF SERVICE: July 09, 2019. REQUESTING PHYSICIAN: Dr. Mason. REASON FOR CONSULTATION: History of cirrhosis of the liver/refractory ascites/chronic hepatitis C infection. HISTORY OF PRESENT ILLNESS: The patient is a 54 -year-old pleasant white female with history of liver cirrhosis related to prior history of chronic hepatitis C infection for which she was recently treated with oral antiviral therapy with Vosevi for a total of 12 weeks duration. At the end of the treatment, RNA was negative. In the meantime, the patient had been requiring large-volume paracentesis on a frequent basis. The last one was done this morning and 5 L of fluid was removed. Prior to that, she had a paracentesis done 2 weeks ago. She had underwent several paracenteses over the last 8 months. This morning, she is feeling much better after the paracentesis. Prior to that, she had some abdominal distention and lower extremity swelling. She follows with Dr. Tidwell for chronic kidney disease which is stage III. PAST MEDICAL HISTORY: Significant for hypertension, chronic liver disease with cirrhosis of the liver. Chronic kidney disease, chronic hepatitis C infection as mentioned above. PAST SURGICAL HISTORY: Recurrent paracenteses, tubal ligation. MEDICATIONS: At home include Xanax, Lasix 40 mg daily. Pantoprazole, Zyloprim, folic acid, iron sulfate, magnesium oxide, hydralazine. ALLERGIES: WELLBUTRIN. SOCIAL HISTORY: Chronic smoker, history of alcohol use in the past, which he quit drinking a few months ago. FAMILY HISTORY: Father had some type of cancer. Mother had atrial fibrillation and congestive heart failure. REVIEW OF SYSTEMS: CARDIOPULMONARY: No chest pain, shortness of breath. no dysuria or hematuria. Musculoskeletal: Unremarkable. Skin unremarkable. Endocrine unremarkable. Psychiatric unremarkable. Neurology unremarkable. ENT/vision unremarkable. CONSTITUTIONAL: No recent weight loss. No fever, chills, night sweats. PHYSICAL EXAMINATION: She appears comfortable. No apparent distress. Vital signs stable. Blood pressure is 119/73, pulse is 73, temperature 98. HEENT examination unremarkable. Conjunctivae pink. Sclerae anicteric. Oral cavity no lesions. NECK: No JVD or lymph node enlargement. CHEST: Clear to auscultation. HEART: Regular rate and rhythm. ABDOMEN: Soft, it was distended. Bowel sounds are positive. No organomegaly. EXTREMITIES: 2+ pedal edema. SKIN no rashes. NEURO: She is alert and oriented x3. No focal deficits. LAB DATA: At the time of admission to the hospital: WBC 4.6, hemoglobin 8.8, platelets 102. BUN is 26, creatinine 2.41. ALT, AST, bilirubin and alkaline phosphatase are within normal limits. IMPRESSION: 1. Cirrhosis of the liver secondary to chronic hepatitis C infection and remote history of alcohol abuse. She is status post antiviral therapy with Vosevi for a total of 12 weeks and had an end of treatment response which ended about 2 months ago. 2. Refractory ascites requiring frequent large volume paracenteses, last one performed this morning and 5.5 L of fluid was removed. Prior to that, her last paracentesis was 2 weeks ago, presently maintained on Lasix 40 mg daily. 3. Chronic kidney disease with a BUN and creatinine in the range of [address] Tidwell following the patient closely. 4. Pancytopenia related to portal hypertension/ from underlying liver disease. RECOMMENDATIONS: 1. Continue with the current dose of diuretics. 2. Low-fat, low-salt diet. 3. We will continue with the large volume paracenteses every 2-3 weeks as needed. 4. Repeat labs in the morning. 5. The patient can be discharged home in 1-2 days with follow up in the office in 3-4 weeks. Thank you for this consultation. MMODL / IJN: [id number] /
[2019-07-09 17:28] LABS: Iron Saturation 30.64 (12.00-45.00)
[2019-07-09 18:48] LABS: Amorphous Sediment,Urine Rare /hpf; Appearance,Urine Clear (Clear); Bacteria,Urine Rare /hpf; Bilirubin,Urine Negative (Negative); Blood,Urine Moderate (Negative); Color,Urine Yellow; Glucose,Urine (UA) Negative (Negative); Hyaline Casts,Urine 44 /lpf (0-2); Ketones,Urine Negative (Negative); Leukocyte Esterase,Urine Negative (Negative); Mucus,Urine Rare /hpf; Nitrite,Urine Negative (Negative); PH, Urine 5.5 (5.0-8.0); Protein,Urine 2+ (Negative); RBC,Urine 129 /hpf (0-5); Specific Gravity,Urine 1.008 (1.001-1.035); Squamous Epithelial Cell,Urine 5 /hpf (0-4); Urobilinogen,Urine <2.0 mg/dL (<2.0); WBC,Urine 4 /hpf (0-5)
[2019-07-10] MEDS: HYDROcodone/APAP 10-325MG 1 EACH TAB PO PRN ×2 (01:15→09:29)
[2019-07-10] MEDS: SODIUM CHLORIDE 0.9% 1,000 ML IV SCH (01:44)
[2019-07-10] MEDS: MORPHINE SULFATE 2 MG/ML SYRINGE IVP PRN ×4 (05:45→20:17)
[2019-07-10 07:37] LABS: Basophils % (A) 1 %; Eosinophils # (A) 0.1 k/uL (0-0.7); Eosinophils % (A) 3 %; HCT 23.1 % (34.0-46.0); HGB 7.6 gm/dL (11.4-16.0); Hypochromasia Slight; Lymphocytes # (A) 1.6 k/uL (1.0-4.8); Lymphocytes % (A) 42 %; MCH 31.9 pg (25.0-35.0); MCHC 33.1 g/dL (31.0-37.0); MCV 96.4 fL (80.0-100.0); Mean Platelet Volume 7.3; Monocytes # (A) 0.3 k/uL (0-1.0); Monocytes % (A) 8 %; Neutrophils # (A) 1.7 k/uL (1.3-7.7); Neutrophils % (A) 44 %; Poikilocytosis Slight; RBC 2.39 m/uL (3.80-5.40); RDW 14.1 % (11.5-15.5); WBC 3.8 k/uL (3.8-10.6)
[2019-07-10 07:46] LABS: Platelet Count 78 k/uL (150-450)
[2019-07-10 07:49] LABS: Albumin 2.4 g/dL (3.5-5.0); Calcium 8.3 mg/dL (8.4-10.2); Potassium 4.3 mmol/L (3.5-5.1); Total Bilirubin 0.5 mg/dL (0.2-1.3); Total Protein 5.1 g/dL (6.3-8.2)
[2019-07-10] MEDS: MAGNESIUM OXIDE 400 MG TAB PO SCH (09:30)
[2019-07-10] MEDS: METOPROLOL TARTRATE 25 MG TAB PO SCH (09:30)
[2019-07-10] MEDS: ALLOPURINOL 100 MG TAB PO SCH ×2 (09:30→20:17)
[2019-07-10] MEDS: hydrALAZINE HCL 10 MG TAB PO SCH ×2 (09:30→20:17)
[2019-07-10] MEDS: FUROSEMIDE 10 MG/ML 4 ML VIAL IV SCH ×2 (09:30→20:17)
[2019-07-10] MEDS: FERROUS SULFATE 325 MG TAB PO SCH (09:30)
[2019-07-10] MEDS: PANTOPRAZOLE 40 MG TABLET PO SCH (09:30)
--- NOTE | 2019-07-10 10:12 | P.PN ---
Subjective Progress Note Date: 07/10/19 This is a 54-year-old female patient who presented with complaints of increased shortness of breath and increased abdominal ascites. Patient has a known past medical history of liver cirrhosis requiring frequent paracentesis. Last paracentesis was approximately 2 weeks ago. Patient reports over the past week she's noticed increased swelling to lower extremities along with increased abdominal ascites patient also complains that her urine has been diminished. Patient does have known past medical history of COPD, GERD, hypertension, liver disease, renal disease, hepatitis C, portal hypertension, anxiety depression and ex-smoker. Chest x-ray completed showing normal chest. No change. EKG comple martin showing normal sinus rhythm and normal EKG. Patient's creatinine elevated to consult 1 bun 26 this is elevated compared to baseline. BNP 2990. At this time patient is complaining of some shortness of breath. IR has been consulted for possible paracentesis. Cardiology, nephrology and GI services consulted. Patient denies chest pain. Patient denies nausea vomiting or diarrhea. Patient denies any urinary burning or frequency. On 07/10/2019 patient's alert and oriented 3. Patient is status post paracentesis with 5.3 L removed. Patient remains on IV Lasix. Cardiology nephrology and GI services are currently following. Patient is still having some abdominal tenderness. Patient denies chest pain or shortness of breath. Patient denies nausea vomiting or diarrhea. Patient denies any urinary burning or frequency. Objective - Vital Signs Vital signs: Vital Signs Temp 98.0 F 07/10/19 07:43 Pulse 73 07/10/19 08:00 Resp 16 07/10/19 08:00 BP 113/69 07/10/19 07:43 Pulse Ox 94 L 07/10/19 07:43 Intake & Output 07/09/19 07/10/19 07/10/19 18:59 06:59 18:59 Intake Total 1405 476 Output Total 200 Balance 1205 476 Weight 93.44 kg Intake: Intake, IV Titration 340 240 Amount Albumin Human 25% 50 ml 200 In Empty Bag 1 bag @ 200 mls/hr IVPB Q15M [facility] Rx#: [id number] Sodium Chloride 0.9% 1, 140 240 000 ml @ 20 mls/hr IV . Q24H [facility] Rx#:[id number] Oral 1065 236 Output: Urine 200 Other: Voiding Method Toilet Toilet # Voids 1 - Exam Head normocephalic Neck supple Lungs clear to auscultation bilaterally no wheezing or crackles Heart regular rate and rhythm S1-S2, no rub or gallop Abdomen rounded, abdominal ascites noted Extremities +1 bilateral lower extremity edema Neuro alert and orientated to 3 - Labs CBC & Chem 7: 07/10/19 06:43 07/10/19 06:43 Labs: Abnormal Lab Results - Last 24 Hours (Table) 07/09/19 07/09/19 07/09/19 Range/Units 09:02 09:02 18:00 WBC 3.7 L (3.8-10.6) k/uL RBC 2.61 L (3.80-5.40) m/uL Hgb 8.1 L (11.4-16.0) gm/dL Hct 25.3 L (34.0-46.0) % Plt Count 94 L (150-450) k/uL Chloride 111 H (98-107) mmol/L Carbon Dioxide 21 L (22-30) mmol/L BUN 28 H (7-17) mg/dL Creatinine 2.47 H (0.52-1.04) mg/dL Calcium 8.1 L (8.4-10.2) mg/dL Total Protein 5.2 L (6.3-8.2) g/dL Albumin 2.2 L (3.5-5.0) g/dL Urine Protein 2+ H (Negative) Urine Blood Moderate H (Negative) Urine RBC 129 H (0-5) /hpf Ur Squamous Epith Cells 5 H (0-4) /hpf Amorphous Sediment Rare H (None) /hpf Urine Bacteria Rare H (None) /hpf Hyaline Casts 44 H (0-2) /lpf Urine Mucus Rare H (None) /hpf 07/10/19 07/10/19 Range/Units 06:43 06:43 WBC (3.8-10.6) k/uL RBC 2.39 L (3.80-5.40) m/uL Hgb 7.6 L (11.4-16.0) gm/dL Hct 23.1 L (34.0-46.0) % Plt Count 78 L (150-450) k/uL Chloride 112 H (98-107) mmol/L Carbon Dioxide (22-30) mmol/L BUN 32 H (7-17) mg/dL Creatinine 2.53 H (0.52-1.04) mg/dL Calcium 8.3 L (8.4-10.2) mg/dL Total Protein 5.1 L (6.3-8.2) g/dL Albumin 2.4 L (3.5-5.0) g/dL Urine Protein (Negative) Urine Blood (Negative) Urine RBC (0-5) /hpf Ur Squamous Epith Cells (0-4) /hpf Amorphous Sediment (None) /hpf Urine Bacteria (None) /hpf Hyaline Casts (0-2) /lpf Urine Mucus (None) /hpf Assessment and Plan Assessment: 1. Increased abdominal ascites secondary to known liver disease. GI services have been consulted. Status post paracentesis on 07/09/2019 5.3 L removed 2. Acute on chronic kidney disease stage III. Creatinine 2.53 and 32. U rology services are following IV fluids DC'd maintained on IV Lasix UA has been ordered 3. Fluid overload secondary to chronic liver disease and acute kidney injury. Patient maintained on IV Lasix. Cardiology following. 2-D echo has been ordered 4. Anemia of chronic disease. Iron studies have been ordered per nephrology 5. History of chronic pain. Home medications resumed 6. History of liver cirrhosis 7. History of essential hypertension 8. History of hepatitis C 9. Thrombocytopenia secondary to liver disease 10. History of nicotine dependence. DVT prophylaxis SCDs. GI prophylaxis Protonix GI, cardiology and nephrology services consulted I performed an examination of the patient and discussed their management with the Nurse Practitioner. I have reviewed the Nurse Practitioner's notes and agree with the documented findings and plan of care
--- NOTE | 2019-07-10 12:01 | ECHOF ---
Referral Reason:fluid overload MEASUREMENTS -------- HEIGHT: 160.0 cm WEIGHT: 93.4 kg BP: 149/84 RVIDd: 4.1 cm (< 3.3) IVSd: 1.5 cm (0.6 - 1.1) LVIDd: 4.3 cm (3.9 - 5.3) LVPWd: 1.5 cm (0.6 - 1.1) IVSs: 1.9 cm LVIDs: 2.7 cm LVPWs: 1.9 cm LAESV Index (A-L): 37.72 ml/m Ao Diam: 2.9 cm (2.0 - 3.7) AV Cusp: 1.8 cm (1.5 - 2.6) LA Diam: 4.6 cm (2.7 - 3.8) TAPSE: 2.8 cm MV EXCURSION: 15.568 mm (> 18.000) MV EF SLOPE: 91 mm/s (70 - 150) EPSS: 1.2 cm MV E Misbah: 0.96 m/s MV DecT: 195 ms MV A Misbah: 0.98 m/s MV E/A Ratio: 0.98 RAP: 5.00 mmHg RVSP: 38.27 mmHg FINDINGS -------- Sinus rhythm. This was a technically adequate study. The left ventricular size is normal. There is moderate concentric left ventricular hypertrophy. O verall left ventricular systolic function is normal with, an EF between 60 - 65 %. The diastolic fi lling pattern is normal for the age of the patient 12.15. The right ventricle is moderately enlarged. The right ventricular systolic function is mildly impai red. LA is moderately dilated 34-39 ml/m2 The right atrium is mildly enlarged. Interatrial and interventricular septum intact. There is no evidence of aortic regurgitation. There is no evidence of aortic stenosis. Mild mitral regurgitation is present. Mild tricuspid regurgitation present. There is mild pulmonary hypertension. The right ventricular systolic pressure, as measured by Doppler, is 38.27mmHg. There is no pulmonic regurgitation present. The aortic root size is normal. The inferior vena cava is mildly dilated. There is no pericardial effusion. CONCLUSIONS -------- 1. Sinus rhythm. 2. This was a technically adequate study. 3. The left ventricular size is normal. 4. There is moderate concentric left ventricular hypertrophy. 5. Overall left ventricular systolic function is normal with, an EF between 60 - 65 %. 6. The diastolic filling pattern is normal for the age of the patient 12.15 7. The right ventricle is moderately enlarged. 8. The right ventricular systolic function is mildly impaired. 9. LA is moderately dilated 34-39 ml/m2 10. The right atrium is mildly enlarged. 11. Interatrial and interventricular septum intact. 12. There is no evidence of aortic regurgitation. 13. There is no evidence of aortic stenosis. 14. Mild mitral regurgitation is present. 15. Mild tricuspid regurgitation present. 16. There is mild pulmonary hypertension. 17. The right ventricular systolic pressure, as measured by Doppler, is 38.27mmHg. 18. There is no pulmonic regurgitation present. 19. The aortic root size is normal. 20. The inferior vena cava is mildly dilated. 21. There is no pericardial effusion. AUTOPSY PATHOLOGIST: Birdie Howell RDCS
[2019-07-10] MEDS: ONDANSETRON 4 MG/2 ML VIAL IVP PRN ×2 (15:27→21:30)
--- NOTE | 2019-07-10 16:25 | PN ---
PROGRESS NOTE The patient is seen for followup for chronic kidney disease, acute kidney injury and volume overload. Currently she is maintained on IV Lasix. She states she is feeling slightly better. Weight is however not changed much. PHYSICAL EXAMINATION: Blood pressure this morning 113/69, heart rate 73 per minute. She is afebrile. Examination of the heart S1, S2. Examination of the lungs, bilateral breath sounds are heard. ABDOMEN: Soft, nontender. Examination of lower extremities shows edema 1+ to 2+ bilaterally. SILK FINISHER exam grossly intact. LABS SHOW: Sodium 141, potassium 4.3, chloride 112, BUN 32, creatinine 2.53, hemoglobin 7.6 g/dL. UA shows 2+ protein, moderate blood. ASSESSMENT: 1. 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 Baseline creatinine 1.6- 1.7 mg/dL. 2. Acute kidney injury mainly cardiorenal, maintained on IV Lasix. Renal function fairly stable with slight worsening of creatinine. I will continue with the current dose of Lasix unless renal function is significantly worse tomorrow. Patient is not on any nephrotoxic medications. Blood pressure is not significantly low. Consider discontinuation of Protonix. The patient is able to tolerate H2 blockers rather than the proton pump inhibitor. 3. Anemia, no active bleeding noted, status post evaluation by Gastroenterology mainly also for chronic hepatitis C and liver cirrhosis. PLAN: Continue with IV Lasix for now, repeat labs in a.m. MMODL / IJN: [id number] /
--- NOTE | 2019-07-10 16:31 | PN ---
PROGRESS NOTE DATE OF SERVICE: July 10, 2019 Patient is a 54-year-old pleasant white female admitted to hospital with abdominal distention and shortness of breath. She underwent large volume paracentesis yesterday approximately 5.5 L of fluid was removed. The patient is feeling much better today. She still has some cramping lower abdominal pain. She reports no nausea, vomiting. On a regular diet, tolerating well. PHYSICAL EXAMINATION: Appears comfortable. Blood pressure 113/69, pulse is 73, temperature 98.1. HEENT examination unremarkable. Conjunctivae pink. Sclerae anicteric. Oral cavity no lesions. Neck no JVD or lymph node enlargement. CHEST: Clear to auscultation. HEART: Regular rate and rhythm. ABDOMEN: Soft, slightly distended. Bowel sounds are positive. No organomegaly. EXTREMITIES: No pedal edema. Skin no rashes. NEURO: She is alert and oriented x3. No focal deficits. LABS: WBC 3.8, hemoglobin 7.6, platelets 78,000, BUN 32, creatinine 2.53. Basic metabolic panel is within normal limits. IMPRESSION: 1. Cirrhosis of the liver with gradual decompensation. 2. History of chronic hepatitis C infection, status post antiviral therapy with Vosevi for 12 weeks duration. Treatment ended about 3 months ago and so far has been end of treatment response. 3. Refractory ascites requiring paracentesis every 2-3 weeks status post large-volume paracentesis yesterday and 5.5 L removed. 4. Albumin was given. 5. Chronic kidney disease stage 3. Dr. Angelo following the patient closely. 6. Pancytopenia secondary to hypersplenism from portal hypertension. RECOMMENDATIONS: 1. Low-salt diet. 2. Continue the present IV diuretics. 3. Repeat labs in the morning and we will follow with you closely. Thank you for this consultation. MMODL / IJN: [id number] /
[2019-07-10] MEDS: ALPRAZolam 0.25 MG TAB PO PRN (20:17)
[2019-07-11] MEDS ORDERED: HYDROcodone/APAP 10-325MG 1 EACH TAB ONE (00:27)
[2019-07-11] MEDS ORDERED: MORPHINE SULFATE 2 MG/ML SYRINGE ONE (00:27)
[2019-07-11] MEDS: ONDANSETRON 4 MG/2 ML VIAL IVP PRN (07:54)
[2019-07-11] MEDS: HYDROcodone/APAP 10-325MG 1 EACH TAB PO PRN ×2 (07:55→20:01)
[2019-07-11] MEDS: PANTOPRAZOLE 40 MG TABLET PO SCH (07:55)
[2019-07-11] MEDS: FERROUS SULFATE 325 MG TAB PO SCH (07:55)
[2019-07-11] MEDS: FUROSEMIDE 10 MG/ML 4 ML VIAL IV SCH ×2 (07:55→20:01)
[2019-07-11] MEDS: METOPROLOL TARTRATE 25 MG TAB PO SCH (07:55)
[2019-07-11] MEDS: ALLOPURINOL 100 MG TAB PO SCH ×2 (07:55→20:01)
[2019-07-11] MEDS: hydrALAZINE HCL 10 MG TAB PO SCH ×2 (07:56→20:01)
[2019-07-11] MEDS: MAGNESIUM OXIDE 400 MG TAB PO SCH (07:56)
[2019-07-11] MEDS: NICOTINE 21MG/24HR PATCH TRANSDERM SCH (07:58)
[2019-07-11 08:19] LABS: Albumin 2.3 g/dL (3.5-5.0); Calcium 8.2 mg/dL (8.4-10.2); Potassium 4.3 mmol/L (3.5-5.1); Total Bilirubin 0.5 mg/dL (0.2-1.3)
[2019-07-11 08:31] LABS: Basophils % (A) 1 %; Eosinophils # (A) 0.1 k/uL (0-0.7); Eosinophils % (A) 3 %; HCT 24.3 % (34.0-46.0); HGB 8.1 gm/dL (11.4-16.0); Hypochromasia Slight; Lymphocytes # (A) 1.4 k/uL (1.0-4.8); Lymphocytes % (A) 41 %; MCH 32.2 pg (25.0-35.0); MCHC 33.1 g/dL (31.0-37.0); MCV 97.3 fL (80.0-100.0); Mean Platelet Volume 8.1; Monocytes # (A) 0.3 k/uL (0-1.0); Monocytes % (A) 8 %; Neutrophils # (A) 1.5 k/uL (1.3-7.7); Neutrophils % (A) 45 %; Poikilocytosis Slight; RDW 14.6 % (11.5-15.5); WBC 3.4 k/uL (3.8-10.6)
[2019-07-11 08:37] LABS: Platelet Count 80 k/uL (150-450)
[2019-07-11] MEDS: SODIUM CHLORIDE 0.9% 1,000 ML IV SCH (09:58)
[2019-07-11] MEDS: MORPHINE SULFATE 2 MG/ML SYRINGE IVP PRN ×3 (10:34→18:33)
[2019-07-11] MEDS: ALPRAZolam 0.25 MG TAB PO PRN ×2 (10:34→20:01)
--- NOTE | 2019-07-11 11:04 | P.PN ---
Subjective Progress Note Date: 07/11/19 This is a 54-year-old female patient who presented with complaints of increased shortness of breath and increased abdominal ascites. Patient has a known past medical history of liver cirrhosis requiring frequent paracentesis. Last paracentesis was approximately 2 weeks ago. Patient reports over the past week she's noticed increased swelling to lower extremities along with increased abdominal ascites patient also complains that her urine has been diminished. Patient does have known past medical history of COPD, GERD, hypertension, liver disease, renal disease, hepatitis C, portal hypertension, anxiety depression and ex-smoker. Chest x-ray completed showing normal chest. No change. EKG comple martin showing normal sinus rhythm and normal EKG. Patient's creatinine elevated to consult 1 bun 26 this is elevated compared to baseline. BNP 2990. At this time patient is complaining of some shortness of breath. IR has been consulted for possible paracentesis. Cardiology, nephrology and GI services consulted. Patient denies chest pain. Patient denies nausea vomiting or diarrhea. Patient denies any urinary burning or frequency. On 07/10/2019 patient's alert and oriented 3. Patient is status post paracentesis with 5.3 L removed. Patient remains on IV Lasix. Cardiology nephrology and GI services are currently following. Patient is still having some abdominal tenderness. Patient denies chest pain or shortness of breath. Patient denies nausea vomiting or diarrhea. Patient denies any urinary burning or frequency. On 07/11/2019 patient's alert and oriented 3. Patient states she is feeling much better following paracentesis on 07/09/2019. Patient states shortness of breath has improved significantly. She denies chest pain, denies vomiting, reports occasional nausea. Patient states she is having regular formed bowel movements. Patient denies any urinary burning or frequency. Objective - Vital Signs Vital signs: Vital Signs Temp 98.1 F 07/11/19 08:28 Pulse 72 07/11/19 08:28 Resp 16 07/11/19 08:28 BP 118/76 07/11/19 08:28 Pulse Ox 98 07/11/19 08:28 Intake & Output 07/10/19 07/11/19 07/11/19 18:59 06:59 18:59 Intake Total 140 Balance 140 Intake: Intake, IV Titration 140 Amount Sodium Chloride 0.9% 1, 140 000 ml @ 20 mls/hr IV . Q24H [facility] Rx#:[id number] Other: Voiding Method Toilet Toilet # Voids 1 - Exam Head normocephalic Neck supple Lungs clear to auscultation bilaterally no wheezing or crackles Heart regular rate and rhythm S1-S2, no rub or gallop Abdomen rounded, abdomen slightly tender in all quadrants upon palpation Extremities +1 bilateral lower extremity edema Neuro alert and orientated to 3 - Labs CBC & Chem 7: 07/11/19 06:33 07/11/19 06:33 Labs: Abnormal Lab Results - Last 24 Hours (Table) 07/11/19 07/11/19 Range/Units 06:33 06:33 WBC 3.4 L (3.8-10.6) k/uL RBC 2.50 L (3.80-5.40) m/uL Hgb 8.1 L (11.4-16.0) gm/dL Hct 24.3 L (34.0-46.0) % Plt Count 80 L (150-450) k/uL Chloride 111 H (98-107) mmol/L BUN 34 H (7-17) mg/dL Creatinine 2.35 H (0.52-1.04) mg/dL Calcium 8.2 L (8.4-10.2) mg/dL Total Protein 5.0 L (6.3-8.2) g/dL Albumin 2.3 L (3.5-5.0) g/dL Assessment and Plan Assessment: 1. Increased abdominal ascites secondary to known liver disease. GI services following. Status post paracentesis on 07/09/2019 5.3 L removed 2. Acute on chronic kidney disease stage III. Creatinine 2.35 and 34. Urology services are following. Nephrology services following, maintained on IV Lasix. UA ordered per nephrology. 3. Fluid overload secondary to chronic liver disease and acute kidney injury. Patient maintained on IV Lasix. Cardiology following. 2-D echo completed, EF 60-65%. 4. Anemia of chronic disease. Iron studies within normal limits. 5. History of chronic pain. Home medications resumed 6. History of liver cirrhosis 7. History of essential hypertension 8. History of hepatitis C 9. Thrombocytopenia secondary to liver disease 10. History of nicotine dependence. DVT prophylaxis SCDs. GI prophylaxis Protonix GI, cardiology and nephrology services consulted I performed an examination of the patient and discussed their management with the Nurse Practitioner. I have reviewed the Nurse Practitioner's notes and agree with the documented findings and plan of care Time with Patient: Greater than 30 (Greater than 60% of the total time spent in counseling and coordination of care. I performed an examination of the patient and discussed their management with the Nurse Practitioner. I have reviewed the Nurse Practitioner's notes and agree with the documented findings and plan of c are)
--- NOTE | 2019-07-11 11:25 | P.PN ---
Subjective Patient is seen in follow-up for acute kidney injury on chronic kidney disease. Renal function is a little better today. Creatinine 2.35. She is maintained on Lasix 40 mg IV twice daily. Underwent paracentesis on July 09 to 5.3 L drained. Dyspnea improved. Edema gradually improving. Urine output is good. Vital signs are stable. General: The patient appeared well nourished and normally developed. HEENT: Head exam is unremarkable. Neck is without jugular venous distension. LUNGS: Lungs are clear to auscultation and percussion. Breath sounds decreased. HEART: Rate and Rhythm are regular. First and second heart sounds normal. No mur murs, rubs or gallops. ABDOMEN: Abdominal exam reveals normal bowel sounds. Non-tender. Distention noted. EXTREMITITES: 1+ edema. Objective - Vital Signs Vital signs: Vital Signs Temp 98.1 F 07/11/19 08:28 Pulse 72 07/11/19 08:28 Resp 16 07/11/19 08:28 BP 118/76 07/11/19 08:28 Pulse Ox 98 07/11/19 08:28 Intake & Output 07/10/19 07/11/19 07/11/19 18:59 06:59 18:59 Intake Total 140 Balance 140 Intake: Intake, IV Titration 140 Amount Sodium Chloride 0.9% 1, 140 000 ml @ 20 mls/hr IV . Q24H [facility] Rx#:[id number] Other: Voiding Method Toilet Toilet # Voids 1 - Labs CBC & Chem 7: 07/11/19 06:33 07/11/19 06:33 Labs: Abnormal Lab Results - Last 24 Hours (Table) 07/11/19 07/11/19 Range/Units 06:33 06:33 WBC 3.4 L (3.8-10.6) k/uL RBC 2.50 L (3.80-5.40) m/uL Hgb 8.1 L (11.4-16.0) gm/dL Hct 24.3 L (34.0-46.0) % Plt Count 80 L (150-450) k/uL Chloride 111 H (98-107) mmol/L BUN 34 H (7-17) mg/dL Creatinine 2.35 H (0.52-1.04) mg/dL Calcium 8.2 L (8.4-10.2) mg/dL Total Protein 5.0 L (6.3-8.2) g/dL Albumin 2.3 L (3.5-5.0) g/dL Assessment and Plan Plan: Assessment: 1. Acute kidney injury mostly prerenal secondary to cardiorenal syndrome. Re nal function is better. Creatinine 2.35 today. 2. Chronic kidney disease stage III with baseline creatinine near 1.7 secondary to biopsy-proven IgA nephropathy. Status post steroid trial. 3. Hep C. Patient underwent antiviral therapy for three-months. Follows with GI outpatient. 4. Acute on chronic diastolic CHF. 5. Ascites status post paracentesis on July 09 at 5.3 L drained. 6. Chronic kidney disease mineral bone disease maintained on calcitriol. 7. Anemia. This is due to chronic kidney disease as well as hypersplenism. Iron replete. Plan: Maintain Lasix 40 mg IV twice daily. Add Aranesp. Avoid nephrotoxins. Repeat electrolytes in the morning.
[2019-07-11] MEDS ORDERED: DARBEPOETIN ALFA 40 MCG/0.4 ML SYRINGE SQ SCH (12:00)
--- NOTE | 2019-07-11 17:27 | PN ---
PROGRESS NOTE DATE OF DICTATION: July 11, 2019 Patient is a 54-year-old pleasant white female admitted to the hospital with weakness, fatigue, abdominal distention. She is status post large-volume paracentesis 2 days ago and approximately 5 L of fluid was removed. She also has acute kidney injury superimposed on chronic kidney disease. Nephrology following the patient closely. Presently, she is maintained on Lasix 40 mg IV twice daily. She complains of some abdominal distention today. Lower extremities swelling has been getting worse, but no abdominal pain. No nausea, vomiting. PHYSICAL EXAMINATION: She appears comfortable, in no apparent distress. VITAL SIGNS: Stable. Blood pressure is 118/76, pulse is 72, temperature 98.1. HEENT examination unremarkable. Conjunctivae pink. Sclerae anicteric. Oral cavity no lesions. Neck: No JVD or lymph node enlargement. The chest was clear to auscultation. HEART: Regular rate and rhythm. ABDOMEN: Soft, slightly distended, but no obvious fluid noted. EXTREMITIES no pedal edema. SKIN: No rashes. NEUROLOGIC: Alert and oriented x3. No focal deficits. LABS: From today: BUN 34, creatinine 2.35, WBC 3.4, hemoglobin 8.1, platelets 80,000. IMPRESSION: 1. Cirrhosis of the liver secondary to chronic hepatitis C infection, status post oral antiviral therapy 6 months ago and she has had an end of treatment response. 2. Acute kidney injury superimposed on chronic kidney disease. Nephrology following the patient closely. Creatinine is gradually improving. 3. Refractory ascites status post large-volume paracentesis 4 days ago and 5.5 L of fluid removed. 4. Anemia of chronic disease. RECOMMENDATIONS: 1. Continue with current medication. 2. Increase ambulation. 3. Low-salt diet. 4. Repeat labs in the morning. MMODL / IJN: [id number] /
[2019-07-12] MEDS: MORPHINE SULFATE 2 MG/ML SYRINGE IVP PRN ×4 (00:28→19:29)
[2019-07-12] MEDS: SODIUM CHLORIDE 0.9% 1,000 ML IV SCH (03:12)
[2019-07-12 07:45] LABS: Basophils % (A) 1 %; Eosinophils # (A) 0.1 k/uL (0-0.7); Eosinophils % (A) 3 %; HCT 22.9 % (34.0-46.0); HGB 7.7 gm/dL (11.4-16.0); Lymphocytes # (A) 1.4 k/uL (1.0-4.8); Lymphocytes % (A) 44 %; MCH 31.9 pg (25.0-35.0); MCHC 33.8 g/dL (31.0-37.0); MCV 94.2 fL (80.0-100.0); Mean Platelet Volume 6.8; Monocytes # (A) 0.3 k/uL (0-1.0); Monocytes % (A) 8 %; Neutrophils # (A) 1.3 k/uL (1.3-7.7); Neutrophils % (A) 41 %; Poikilocytosis Slight; RBC 2.43 m/uL (3.80-5.40); RDW 14.1 % (11.5-15.5); WBC 3.1 k/uL (3.8-10.6)
[2019-07-12 07:47] LABS: Platelet Count 91 k/uL (150-450)
[2019-07-12 07:58] LABS: Albumin 2.2 g/dL (3.5-5.0); Calcium 8.3 mg/dL (8.4-10.2); Magnesium 1.8 mg/dL (1.6-2.3); Potassium 4.2 mmol/L (3.5-5.1); Total Bilirubin 0.6 mg/dL (0.2-1.3); Total Protein 4.9 g/dL (6.3-8.2)
[2019-07-12] MEDS: NICOTINE 21MG/24HR PATCH TRANSDERM SCH (09:07)
[2019-07-12] MEDS: HYDROcodone/APAP 10-325MG 1 EACH TAB PO PRN ×2 (09:07→22:27)
[2019-07-12] MEDS: ALLOPURINOL 100 MG TAB PO SCH ×2 (09:07→20:08)
[2019-07-12] MEDS: hydrALAZINE HCL 10 MG TAB PO SCH ×2 (09:08→20:08)
[2019-07-12] MEDS: METOPROLOL TARTRATE 25 MG TAB PO SCH (09:08)
[2019-07-12] MEDS: FUROSEMIDE 10 MG/ML 4 ML VIAL IV SCH ×2 (09:08→20:08)
[2019-07-12] MEDS: FERROUS SULFATE 325 MG TAB PO SCH (09:08)
[2019-07-12] MEDS: FAMOTIDINE 20 MG TAB PO SCH (09:08)
[2019-07-12] MEDS: MAGNESIUM OXIDE 400 MG TAB PO SCH (09:10)
[2019-07-12] MEDS: ALPRAZolam 0.25 MG TAB PO PRN ×2 (10:52→20:08)
--- NOTE | 2019-07-12 11:00 | P.PN ---
Subjective Progress Note Date: 07/12/19 This is a 54-year-old female patient who presented with complaints of increased shortness of breath and increased abdominal ascites. Patient has a known past medical history of liver cirrhosis requiring frequent paracentesis. Last paracentesis was approximately 2 weeks ago. Patient reports over the past week she's noticed increased swelling to lower extremities along with increased abdominal ascites patient also complains that her urine has been diminished. Patient does have known past medical history of COPD, GERD, hypertension, liver disease, renal disease, hepatitis C, portal hypertension, anxiety depression and ex-smoker. Chest x-ray completed showing normal chest. No change. EKG comple martin showing normal sinus rhythm and normal EKG. Patient's creatinine elevated to consult 1 bun 26 this is elevated compared to baseline. BNP 2990. At this time patient is complaining of some shortness of breath. IR has been consulted for possible paracentesis. Cardiology, nephrology and GI services consulted. Patient denies chest pain. Patient denies nausea vomiting or diarrhea. Patient denies any urinary burning or frequency. On 07/10/2019 patient's alert and oriented 3. Patient is status post paracentesis with 5.3 L removed. Patient remains on IV Lasix. Cardiology nephrology and GI services are currently following. Patient is still having some abdominal tenderness. Patient denies chest pain or shortness of breath. Patient denies nausea vomiting or diarrhea. Patient denies any urinary burning or frequency. On 07/11/2019 patient's alert and oriented 3. Patient states she is feeling much better following paracentesis on 07/09/2019. Patient states shortness of breath has improved significantly. She denies chest pain, denies vomiting, reports occasional nausea. Patient states she is having regular formed bowel movements. Patient denies any urinary burning or frequency. On 07/12/2019 patient's alert and oriented 3. Patient is feeling improved chronic cough on her Knee to the ER. Creatinine is trending down. Patient remains on IV Lasix. Patient denies chest pain or shortness breath. Patient denies nausea vomiting or diarrhea. Patient denies any nausea vomiting or diarrhea. Patient denies any urinary burning or frequency Objective - Vital Signs Vital signs: Vital Signs Temp 98 F 07/12/19 07:42 Pulse 67 07/12/19 07:42 Resp 16 07/12/19 07:42 BP 157/87 07/12/19 07:42 Pulse Ox 96 07/12/19 07:42 Intake & Output 07/11/19 07/12/19 07/12/19 18:59 06:59 18:59 Intake Total 900 Balance 900 Weight 96 kg Intake: Intake, IV Titration 200 Amount Sodium Chloride 0.9% 1, 200 000 ml @ 20 mls/hr IV . Q24H [facility] Rx#:[id number] Oral 700 Other: # Voids 2 2 - Exam Head normocephalic Neck supple Lungs clear to auscultation bilaterally no wheezing or crackles Heart regular rate and rhythm S1-S2, no rub or gallop Abdomen rounded, abdomen slightly tender in all quadrants upon palpation Extremities +1 bilateral lower extremity edema Neuro alert and orientated to 3 - Labs CBC & Chem 7: 07/12/19 06:56 07/12/19 06:56 Labs: Abnormal Lab Results - Last 24 Hours (Table) 07/12/19 07/12/19 Range/Units 06:56 06:56 WBC 3.1 L (3.8-10.6) k/uL RBC 2.43 L (3.80-5.40) m/uL Hgb 7.7 L (11.4-16.0) gm/dL Hct 22.9 L (34.0-46.0) % Plt Count 91 L (150-450) k/uL Chloride 112 H (98-107) mmol/L BUN 33 H (7-17) mg/dL Creatinine 2.20 H (0.52-1.04) mg/dL Calcium 8.3 L (8.4-10.2) mg/dL Total Protein 4.9 L (6.3-8.2) g/dL Albumin 2.2 L (3.5-5.0) g/dL Assessment and Plan Assessment: 1. Increased abdominal ascites secondary to known liver disease. GI services following. Status post paracentesis on 07/09/2019 5.3 L removed 2. Acute on chronic kidney disease stage III. Creatinine 2.35 and 34. Urology services are following. Nephrology services following, maintained on IV Lasix. UA ordered per nephrology. 3. Fluid overload secondary to chronic liver disease and acute kidney injury. Patient maintained on IV Lasix. Cardiology following. 2-D echo completed, EF 60-65%. 4. Anemia of chronic disease. Iron studies within normal limits. Per nephrology this is due to chronic kidney disease as well as hypersplenism. Aranesp added 5. History of chronic pain. Home medications resumed 6. History of liver cirrhosis 7. History of essential hypertension 8. History of hepatitis C 9. Thrombocytopenia secondary to liver disease 10. History of nicotine dependence. DVT prophylaxis SCDs. GI prophylaxis Protonix GI, cardiology and nephrology services consulted I performed an examination of the patient and discussed their management with the Nurse Practitioner. I have reviewed the Nurse Practitioner's notes and agree with the documented findings and plan of care
[2019-07-12] MEDS: ONDANSETRON 4 MG/2 ML VIAL IVP PRN ×2 (15:10→20:11)
--- NOTE | 2019-07-12 17:40 | PN ---
PROGRESS NOTE DATE OF DICTATION: July 12, 2019 Patient is a 54-year-old pleasant white female with history of chronic hep C infection and cirrhosis of the liver, admitted to hospital with ascites, shortness of breath. She is status post large-volume paracentesis 5 days ago and 5 L of fluids were removed. Because of worsening kidney function, she is being observed closely in the hospital. Nephrology following the patient. She complains of some abdominal discomfort. No nausea, vomiting. No lower extremity swelling. PHYSICAL EXAMINATION: Appears comfortable. No apparent distress. VITAL SIGNS: Stable. Blood pressure 146/81, pulse 81, temperature 95.5. HEENT examination unremarkable. Conjunctivae pink. Sclerae anicteric. Oral cavity no lesions. NECK: No JVD or lymph node enlargement. CHEST: Clear to auscultation. HEART: Regular rate and rhythm. ABDOMEN: Soft. Bowel sounds are positive. No organomegaly. EXTREMITIES: No pedal edema. SKIN no rashes. NEUROLOGIC: Alert and oriented x3. No focal deficits. LABS: From today: BUN is 33, creatinine 2.20. Basic metabolic panel is normal. WBC 3.1, hemoglobin 7.7, and platelets are 91,000. IMPRESSION: 1. Cirrhosis of the liver/chronic hepatitis C infection status post antiviral therapy a few months ago and so far had a response to the treatment. 2. Refractory ascites requiring large-volume paracentesis once every 2-3 weeks. Last one was done 5 years ago. 3. Chronic kidney disease with worsening BUN and creatinine, which appears to be stable. Presently, she is on IV Lasix 40 mg twice daily. Nephrology following the patient closely. 4. Pancytopenia secondary to underlying chronic liver disease/chronic kidney disease. Hemoglobin gradually dropping to 7.7, but clinically no evidence of active bleeding. RECOMMENDATIONS: 1. Continue with current management. 2. Continue with diuretics as per Nephrology. 3. Repeat labs in the morning. 4. We will follow with you closely during hospital stay. Thank you for this consultation. MMODL / IJN: [id number] /
--- NOTE | 2019-07-12 19:39 | PN ---
PROGRESS NOTE Patient is seen for followup for acute kidney injury on top of chronic kidney disease and volume overload. Currently she is maintained on Lasix which is now decreased to IV Q 12 hours. Overall, patient states she is feeling better. Urine output is not accurately charted. PHYSICAL EXAMINATION: Blood pressure this morning 157/87, heart rate 67 per minute. She is afebrile. Examination of the heart S1, S2. Examination of the lungs, bilateral breath sounds are heard. ABDOMEN: Soft, nontender. Examination of lower extremities shows edema 2+ bilaterally, currently improved. [employer] exam grossly intact. LABS: Show sodium 141, potassium 4.2, BUN 33, creatinine 2.2, hemoglobin 7.7 g/dL. ASSESSMENT: 1. Acute kidney injury cardiorenal currently improved. 2. Chronic kidney disease, stage IV, with history of biopsy-proven IgA nephropathy, status post steroids. Baseline creatinine about 1.7 mg/dL. 3. Hep C status post antiviral therapy. 4. Acute on chronic diastolic heart failure. 5. Chronic kidney disease mineral bone disorder. PLAN: Continue with current dose of IV Lasix. Possible discharge in the next 1-2 days. Continue Aranesp. Repeat labs in a.m. Continue to avoid nephrotoxic agents. Maintain salt and fluid restriction. MMODL / IJN: [id number] /
[2019-07-13] MEDS: SODIUM CHLORIDE 0.9% 1,000 ML IV SCH (04:04)
[2019-07-13] MEDS: ONDANSETRON 4 MG/2 ML VIAL IVP PRN ×2 (04:40→15:16)
[2019-07-13] MEDS: MORPHINE SULFATE 2 MG/ML SYRINGE IVP PRN ×4 (04:41→20:03)
[2019-07-13] MEDS: NICOTINE 21MG/24HR PATCH TRANSDERM SCH (07:38)
[2019-07-13] MEDS: hydrALAZINE HCL 10 MG TAB PO SCH ×2 (07:38→20:02)
[2019-07-13] MEDS: HYDROcodone/APAP 10-325MG 1 EACH TAB PO PRN ×2 (07:39→22:00)
[2019-07-13] MEDS: MAGNESIUM OXIDE 400 MG TAB PO SCH (07:39)
[2019-07-13] MEDS: FAMOTIDINE 20 MG TAB PO SCH (07:39)
[2019-07-13] MEDS: FERROUS SULFATE 325 MG TAB PO SCH (07:39)
[2019-07-13] MEDS: ALLOPURINOL 100 MG TAB PO SCH ×2 (07:39→20:03)
[2019-07-13] MEDS: METOPROLOL TARTRATE 25 MG TAB PO SCH (07:39)
[2019-07-13] MEDS: FUROSEMIDE 10 MG/ML 4 ML VIAL IV SCH ×2 (07:39→20:03)
[2019-07-13] MEDS: ALPRAZolam 0.25 MG TAB PO PRN ×2 (10:58→22:00)
--- NOTE | 2019-07-13 11:41 | P.PN ---
Subjective Progress Note Date: 07/13/19 This is a 54-year-old female patient who presented with complaints of increased shortness of breath and increased abdominal ascites. Patient has a known past medical history of liver cirrhosis requiring frequent paracentesis. Last paracentesis was approximately 2 weeks ago. Patient reports over the past week she's noticed increased swelling to lower extremities along with increased abdominal ascites patient also complains that her urine has been diminished. Patient does have known past medical history of COPD, GERD, hypertension, liver disease, renal disease, hepatitis C, portal hypertension, anxiety depression and ex-smoker. Chest x-ray completed showing normal chest. No change. EKG comple martin showing normal sinus rhythm and normal EKG. Patient's creatinine elevated to consult 1 bun 26 this is elevated compared to baseline. BNP 2990. At this time patient is complaining of some shortness of breath. IR has been consulted for possible paracentesis. Cardiology, nephrology and GI services consulted. Patient denies chest pain. Patient denies nausea vomiting or diarrhea. Patient denies any urinary burning or frequency. On 07/10/2019 patient's alert and oriented 3. Patient is status post paracentesis with 5.3 L removed. Patient remains on IV Lasix. Cardiology nephrology and GI services are currently following. Patient is still having some abdominal tenderness. Patient denies chest pain or shortness of breath. Patient denies nausea vomiting or diarrhea. Patient denies any urinary burning or frequency. On 07/11/2019 patient's alert and oriented 3. Patient states she is feeling much better following paracentesis on 07/09/2019. Patient states shortness of breath has improved significantly. She denies chest pain, denies vomiting, reports occasional nausea. Patient states she is having regular formed bowel movements. Patient denies any urinary burning or frequency. On 07/12/2019 patient's alert and oriented 3. Patient is feeling improved chronic cough on her Knee to the ER. Creatinine is trending down. Patient remains on IV Lasix. Patient denies chest pain or shortness breath. Patient denies nausea vomiting or diarrhea. Patient denies any nausea vomiting or diarrhea. Patient denies any urinary burning or frequency On 07/13/2018 patient oriented 3. Patient reports feeling some improvement with abdominal pain. Patient does complain of intermittent nausea, though is tolerating a diet and denies vomiting or diarrhea. Creatinine is 2.20 down from 2.35. Should maintain on IV Lasix per nephrology and cardiology. She denies any urinary burning or frequency. Objective - Vital Signs Vital signs: Vital Signs Temp 98.5 F 07/13/19 07:00 Pulse 67 07/13/19 08:00 Resp 17 07/13/19 08:00 BP 136/83 07/13/19 07:00 Pulse Ox 98 07/13/19 07:00 Intake & Output 07/12/19 07/13/19 07/13/19 18:59 06:59 18:59 Intake Total 7 700 Balance 7 700 Weight 95.9 kg Intake: Intake, IV Titration 7 200 Amount Sodium Chloride 0.9% 1, 7 200 000 ml @ 20 mls/hr IV . Q24H [facility] Rx#:[id number] Oral 500 Other: Voiding Method Toilet Toilet # Voids 3 - Exam Head normocephalic Neck supple Lungs clear to auscultation bilaterally no wheezing or crackles Heart regular rate and rhythm S1-S2, no rub or gallop Abdomen rounded, abdomen slightly tender in all quadrants upon palpation Extremities +1 bilateral lower extremity edema Neuro alert and orientated to 3 - Labs CBC & Chem 7: 07/12/19 06:56 07/12/19 06:56 Assessment and Plan Assessment: 1. Increased abdominal ascites secondary to known liver disease. GI services following. Status post paracentesis on 07/09/2019 5.3 L removed 2. Acute on chronic kidney disease stage III. Creatinine 2.20 and BUN 33. Urology services are following. Nephrology services following, maintained on IV Lasix. 3. Fluid overload secondary to chronic liver disease and acute kidney injury. Patient maintained on IV Lasix. Cardiology following. 2-D echo completed, EF 60-65%. 4. Anemia of chronic disease. Iron studies within normal limits. Per nephrology this is due to chronic kidney disease as well as hypersplenism. Manuel wen added 5. History of chronic pain. Home medications resumed 6. History of liver cirrhosis 7. History of essential hypertension 8. History of hepatitis C 9. Thrombocytopenia secondary to liver disease 10. History of nicotine dependence. 11. Constipation. Colace added. DVT prophylaxis SCDs. GI prophylaxis Protonix GI, cardiology and nephrology services consulted I performed an examination of the patient and discussed their management with the Nurse Practitioner. I have reviewed the Nurse Practitioner's notes and agree with the documented findings and plan of care
[2019-07-13 12:24] LABS: Basophils % (A) 0 %; Eosinophils # (A) 0.1 k/uL (0-0.7); Eosinophils % (A) 4 %; HCT 23.7 % (34.0-46.0); HGB 8.1 gm/dL (11.4-16.0); Lymphocytes # (A) 1.6 k/uL (1.0-4.8); Lymphocytes % (A) 43 %; MCH 32.4 pg (25.0-35.0); MCV 95.3 fL (80.0-100.0); Mean Platelet Volume 7.8; Monocytes # (A) 0.3 k/uL (0-1.0); Monocytes % (A) 8 %; Neutrophils # (A) 1.5 k/uL (1.3-7.7); Neutrophils % (A) 41 %; Poikilocytosis Slight; RBC 2.49 m/uL (3.80-5.40); RDW 14.2 % (11.5-15.5); WBC 3.7 k/uL (3.8-10.6)
[2019-07-13 12:25] LABS: Platelet Count 84 k/uL (150-450)
[2019-07-13 12:44] LABS: Albumin 2.3 g/dL (3.5-5.0); Calcium 8.4 mg/dL (8.4-10.2); Potassium 4.1 mmol/L (3.5-5.1); Total Bilirubin 0.4 mg/dL (0.2-1.3); Total Protein 5.1 g/dL (6.3-8.2)
--- NOTE | 2019-07-13 14:34 | P.PN ---
Subjective Patient is seen in follow-up for acute kidney injury on chronic kidney disease. Renal function is stable. Creatinine 2.28 today. She is maintained on Lasix 40 mg IV twice daily. Underwent paracentesis on July 09 to 5.3 L drained. Dyspnea improved. Edema gradually improving. Urine output is good. No complaints at this time. Vital signs are stable. General: The patient appeared well nourished and normally developed. HEENT: Head exam is unremarkable. Neck is without jugular venous distension. LUNGS: Lungs are clear to auscultation and percussion. Breath sounds decreased. HEART: Rate and Rhythm are regular. First and second heart sounds normal. No murmurs, rubs or gallops. ABDOMEN: Abdominal exam reveals normal bowel sounds. Non-tender. Distention noted. EXTREMITITES: Trace edema. Objective - Vital Signs Vital signs: Vital Signs Temp 98.5 F 07/13/19 07:00 Pulse 67 07/13/19 08:00 Resp 17 07/13/19 08:00 BP 136/83 07/13/19 07:00 Pulse Ox 98 07/13/19 07:00 Intake & Output 07/12/19 07/13/19 07/13/19 18:59 06:59 18:59 Intake Total 7 700 Balance 7 700 Weight 95.9 kg Intake: Intake, IV Titration 7 200 Amount Sodium Chloride 0.9% 1, 7 200 000 ml @ 20 mls/hr IV . Q24H [facility] Rx#:[id number] Oral 500 Other: Voiding Method Toilet Toilet # Voids 3 - Labs CBC & Chem 7: 07/13/19 12:03 07/13/19 12:03 Labs: Abnormal Lab Results - Last 24 Hours (Table) 07/13/19 07/13/19 Range/Units 12:03 12:03 WBC 3.7 L (3.8-10.6) k/uL RBC 2.49 L (3.80-5.40) m/uL Hgb 8.1 L (11.4-16.0) gm/dL Hct 23.7 L (34.0-46.0) % Plt Count 84 L (150-450) k/uL Chloride 110 H (98-107) mmol/L BUN 33 H (7-17) mg/dL Creatinine 2.28 H (0.52-1.04) mg/dL Total Protein 5.1 L (6.3-8.2) g/dL Albumin 2.3 L (3.5-5.0) g/dL Assessment and Plan Plan: Assessment: 1. Acute kidney injury mostly prerenal secondary to cardiorenal syndrome. Renal function is stable. Creatinine 2.28 today. 2. Chronic kidney disease stage III with baseline creatinine near 1.7 secondary to biopsy-proven IgA nephropathy. Status post steroid trial. 3. Hep C. Patient underwent antiviral therapy for three-months. Follows with GI outpatient. 4. Acute on chronic diastolic CHF. 5. Ascites status post paracentesis on July 09 at 5.3 L drained. 6. Chronic kidney disease mineral bone disease maintained on calcitriol. 7. Anemia. This is due to chronic kidney disease as well as hypersplenism. Iron replete. On Aranesp. Plan: Maintain Lasix 40 mg IV twice daily - change to oral upon discharge. Avoid nephrotoxins. Maintain low salt diet. Repeat electrolytes in the morning. Anticipate d/c soon. F/u outpatient in 1-2 weeks. BMP, mag 2-3 days post discharge.
[2019-07-13 16:18] LABS: Hepatits C Virus RNA Not detected (Not detected); Hepatits C Virus RNA, Quant <12 IU/mL (<12); LOG HCV IU/mL <1.08 (<1.08)
[2019-07-13] MEDS: DOCUSATE 100 MG CAP PO SCH (20:02)
[2019-07-14] MEDS: SODIUM CHLORIDE 0.9% 1,000 ML IV SCH (00:14)
[2019-07-14] MEDS: MORPHINE SULFATE 2 MG/ML SYRINGE IVP PRN ×6 (00:14→22:31)
[2019-07-14 06:58] LABS: Basophils % (A) 1 %; Eosinophils # (A) 0.1 k/uL (0-0.7); Eosinophils % (A) 3 %; HCT 24.3 % (34.0-46.0); HGB 8.1 gm/dL (11.4-16.0); Lymphocytes # (A) 1.4 k/uL (1.0-4.8); Lymphocytes % (A) 40 %; MCH 31.7 pg (25.0-35.0); MCHC 33.3 g/dL (31.0-37.0); Mean Platelet Volume 7.6; Monocytes # (A) 0.3 k/uL (0-1.0); Monocytes % (A) 10 %; Neutrophils # (A) 1.5 k/uL (1.3-7.7); Neutrophils % (A) 44 %; Poikilocytosis Slight; RBC 2.56 m/uL (3.80-5.40); RDW 14.2 % (11.5-15.5); WBC 3.5 k/uL (3.8-10.6)
[2019-07-14 06:59] LABS: Platelet Count 83 k/uL (150-450)
[2019-07-14 07:30] LABS: Albumin 2.3 g/dL (3.5-5.0); Calcium 8.4 mg/dL (8.4-10.2); Potassium 3.9 mmol/L (3.5-5.1); Total Bilirubin 0.7 mg/dL (0.2-1.3); Total Protein 5.2 g/dL (6.3-8.2)
[2019-07-14] MEDS: FUROSEMIDE 10 MG/ML 4 ML VIAL IV SCH ×2 (09:14→21:08)
[2019-07-14] MEDS: ONDANSETRON 4 MG/2 ML VIAL IVP PRN (09:17)
[2019-07-14] MEDS: NICOTINE 21MG/24HR PATCH TRANSDERM SCH (09:21)
[2019-07-14] MEDS: DOCUSATE 100 MG CAP PO SCH ×2 (09:23→21:07)
[2019-07-14] MEDS: hydrALAZINE HCL 10 MG TAB PO SCH ×2 (09:23→21:07)
[2019-07-14] MEDS: MAGNESIUM OXIDE 400 MG TAB PO SCH (09:23)
[2019-07-14] MEDS: ALLOPURINOL 100 MG TAB PO SCH ×2 (09:23→21:07)
[2019-07-14] MEDS: FAMOTIDINE 20 MG TAB PO SCH (09:23)
[2019-07-14] MEDS: METOPROLOL TARTRATE 25 MG TAB PO SCH (09:24)
[2019-07-14] MEDS: FERROUS SULFATE 325 MG TAB PO SCH (09:24)
[2019-07-14] MEDS: HYDROcodone/APAP 10-325MG 1 EACH TAB PO PRN ×2 (09:30→21:07)
--- NOTE | 2019-07-14 10:55 | P.PN ---
Subjective Progress Note Date: 07/14/19 Seen and examined for the follow-up of acute kidney injury. Feels abdomin is swelling up again. No nausea vomiting diarrhea. Objective - Vital Signs Vital signs: Vital Signs Temp 97.7 F 07/14/19 08:00 Pulse 76 07/14/19 08:00 Resp 17 07/14/19 08:00 BP 158/85 07/14/19 08:00 Pulse Ox 96 07/14/19 08:00 Intake & Output 07/13/19 07/14/19 07/14/19 18:59 06:59 18:59 Intake Total 140 700 Balance 140 700 Weight 94.9 kg Intake: Intake, IV Titration 140 200 Amount Sodium Chloride 0.9% 1, 140 200 000 ml @ 20 mls/hr IV . Q24H [facility] Rx#:[id number] Oral 500 Other: Voiding Method Toilet # Voids 2 - Exam No acute distress S1-S2 heard Decreased breath sounds Abdomen distended Trace edema - Labs CBC & Chem 7: 07/14/19 06:22 07/14/19 06:22 Labs: Abnormal Lab Results - Last 24 Hours (Table) 07/13/19 07/13/19 07/14/19 Range/Units 12:03 12:03 06:22 WBC 3.7 L 3.5 L (3.8-10.6) k/uL RBC 2.49 L 2.56 L (3.80-5.40) m/uL Hgb 8.1 L 8.1 L (11.4-16.0) gm/dL Hct 23.7 L 24.3 L (34.0-46.0) % Plt Count 84 L 83 L (150-450) k/uL Chloride 110 H (98-107) mmol/L BUN 33 H (7-17) mg/dL Creatinine 2.28 H (0.52-1.04) mg/dL Total Protein 5.1 L (6.3-8.2) g/dL Albumin 2.3 L (3.5-5.0) g/dL 07/14/19 Range/Units 06:22 WBC (3.8-10.6) k/uL RBC (3.80-5.40) m/uL Hgb (11.4-16.0) gm/dL Hct (34.0-46.0) % Plt Count (150-450) k/uL Chloride 109 H (98-107) mmol/L BUN 35 H (7-17) mg/dL Creatinine 2.25 H (0.52-1.04) mg/dL Total Protein 5.2 L (6.3-8.2) g/dL Albumin 2.3 L (3.5-5.0) g/dL Assessment and Plan Assessment: #1 acute kidney injury and it to cardiorenal syndrome. Renal function stable. #2 chronic kidney disease stage III with a baseline creatinine 1.7 MG per DL secondary to biopsy-proven IgA nephropathy. #3 chronic liver disease secondary to hepatitis C. #4 acute on chronic diastolic CHF #5 and decompensated liver disease status post paracentesis #6 anemia with chronic kidney disease. Plan: #1 renal function stable continue diuretics 40 mg IV twice a day. #2 Avoid nephrotoxic agents and hypotensive episodes. #3 labs in the morning
--- NOTE | 2019-07-14 15:47 | P.PN ---
Subjective Progress Note Date: 07/14/19 This is a 54-year-old female patient who presented with complaints of increased shortness of breath and increased abdominal ascites. Patient has a known past medical history of liver cirrhosis requiring frequent paracentesis. Last paracentesis was approximately 2 weeks ago. Patient reports over the past week she's noticed increased swelling to lower extremities along with increased abdominal ascites patient also complains that her urine has been diminished. Patient does have known past medical history of COPD, GERD, hypertension, liver disease, renal disease, hepatitis C, portal hypertension, anxiety depression and ex-smoker. Chest x-ray completed showing normal chest. No change. EKG compl eted showing normal sinus rhythm and normal EKG. Patient's creatinine elevated to consult 1 bun 26 this is elevated compared to baseline. BNP 2990. At this time patient is complaining of some shortness of breath. IR has been consulted for possible paracentesis. Cardiology, nephrology and GI services consulted. Patient denies chest pain. Patient denies nausea vomiting or diarrhea. Patient denies any urinary burning or frequency. On 07/10/2019 patient's alert and oriented 3. Patient is status post paracentesis with 5.3 L removed. Patient remains on IV Lasix. Cardiology nephrology and GI services are currently following. Patient is still having some abdominal tenderness. Patient denies chest pain or shortness of breath. Patient denies nausea vomiting or diarrhea. Patient denies any urinary burning or frequency. On 07/11/2019 patient's alert and oriented 3. Patient states she is feeling much better following paracentesis on 07/09/2019. Patient states shortness of breath has improved significantly. She denies chest pain, denies vomiting, reports occasional nausea. Patient states she is having regular formed bowel movements. Patient denies any urinary burning or frequency. On 07/12/2019 patient's alert and oriented 3. Patient is feeling improved chronic cough on her Knee to the ER. Creatinine is trending down. Patient remains on IV Lasix. Patient denies chest pain or shortness breath. Patient denies nausea vomiting or diarrhea. Patient denies any nausea vomiting or diarrhea. Patient denies any urinary burning or frequency On 07/13/2018 patient oriented 3. Patient reports feeling some improvement with abdominal pain. Patient does complain of intermittent nausea, though is tolerating a diet and denies vomiting or diarrhea. Creatinine is 2.20 down from 2.35. Should maintain on IV Lasix per nephrology and cardiology. She denies any urinary burning or frequency. On 07/14/2019 patient was seen and examined on the medical floor she is still complaining of abdominal pain and complaining of generalized weakness otherwise she denies any complaints there is no fever or chills no headache or dizziness no chest pain no shortness of breath no cough no nausea or vomiting no diarrhea and no urinary symptoms Objective - Vital Signs Vital signs: Vital Signs Temp 97.7 F 07/14/19 08:00 Pulse 76 07/14/19 14:22 Resp 17 07/14/19 14:22 BP 158/85 07/14/19 08:00 Pulse Ox 96 07/14/19 08:00 Intake & Output 07/13/19 07/14/19 07/14/19 18:59 06:59 18:59 Intake Total 140 700 160 Balance 140 700 160 Weight 94.9 kg Intake: Intake, IV Titration 140 200 160 Amount Sodium Chloride 0.9% 1, 140 200 160 000 ml @ 20 mls/hr IV . Q24H [facility] Rx#:[id number] Oral 500 Other: Voiding Method Toilet Toilet # Voids 2 3 - Exam Head normocephalic and atraumatic Neck supple no JVD no goiter Lungs clear to auscultation bilaterally no wheezing or crackles Heart regular rate and rhythm S1-S2, no rub or gallop Abdomen rounded, abdomen slightly tender in all quadrants upon palpation Extremities +1 bilateral lower extremity edema Neuro alert and orientated to 3 no gross focal neurological deficit - Labs CBC & Chem 7: 07/14/19 06:22 07/14/19 06:22 Labs: Abnormal Lab Results - Last 24 Hours (Table) 07/14/19 07/14/19 Range/Units 06:22 06:22 WBC 3.5 L (3.8-10.6) k/uL RBC 2.56 L (3.80-5.40) m/uL Hgb 8.1 L (11.4-16.0) gm/dL Hct 24.3 L (34.0-46.0) % Plt Count 83 L (150-450) k/uL Chloride 109 H (98-107) mmol/L BUN 35 H (7-17) mg/dL Creatinine 2.25 H (0.52-1.04) mg/dL Total Protein 5.2 L (6.3-8.2) g/dL Albumin 2.3 L (3.5-5.0) g/dL Assessment and Plan Plan: 1. Increased abdominal ascites secondary to known liver disease. GI services following. Status post paracentesis on 07/09/2019 5.3 L removed 2. Acute on chronic kidney disease stage III. Creatinine 2.20 and BUN 33. U rology services are following. Nephrology services following, maintained on IV Lasix. 3. Fluid overload secondary to chronic liver disease and acute kidney injury. Patient maintained on IV Lasix. Cardiology following. 2-D echo completed, EF 60-65%. 4. Anemia of chronic disease. Iron studies within normal limits. Per nephrology this is due to chronic kidney disease as well as hypersplenism. Aranesp added 5. History of chronic pain. Home medications resumed 6. History of liver cirrhosis 7. History of essential hypertension 8. History of hepatitis C 9. Thrombocytopenia secondary to liver disease 10. History of nicotine dependence. 11. Constipation. Colace added. DVT prophylaxis SCDs. GI prophylaxis Protonix GI, cardiology and nephrology services consulted
[2019-07-14] MEDS: ALPRAZolam 0.25 MG TAB PO PRN (21:06)
[2019-07-15] MEDS: SODIUM CHLORIDE 0.9% 1,000 ML IV SCH ×2 (02:51→22:52)
[2019-07-15 07:20] LABS: Basophils % (A) 0 %; Eosinophils # (A) 0.1 k/uL (0-0.7); Eosinophils % (A) 3 %; HCT 24.6 % (34.0-46.0); HGB 8.1 gm/dL (11.4-16.0); Lymphocytes # (A) 1.5 k/uL (1.0-4.8); Lymphocytes % (A) 44 %; MCH 31.8 pg (25.0-35.0); MCHC 33.2 g/dL (31.0-37.0); Mean Platelet Volume 7.9; Monocytes # (A) 0.3 k/uL (0-1.0); Monocytes % (A) 10 %; Neutrophils # (A) 1.3 k/uL (1.3-7.7); Neutrophils % (A) 39 %; Poikilocytosis Slight; RBC 2.56 m/uL (3.80-5.40); RDW 14.5 % (11.5-15.5); WBC 3.4 k/uL (3.8-10.6)
[2019-07-15 07:37] LABS: Albumin 2.2 g/dL (3.5-5.0); Calcium 8.4 mg/dL (8.4-10.2); Potassium 3.9 mmol/L (3.5-5.1); Total Bilirubin 0.6 mg/dL (0.2-1.3); Total Protein 5.1 g/dL (6.3-8.2)
[2019-07-15 07:50] LABS: Platelet Count 88 k/uL (150-450)
[2019-07-15] MEDS: MAGNESIUM OXIDE 400 MG TAB PO SCH (08:27)
[2019-07-15] MEDS: DOCUSATE 100 MG CAP PO SCH ×2 (08:27→19:42)
[2019-07-15] MEDS: FAMOTIDINE 20 MG TAB PO SCH (08:27)
[2019-07-15] MEDS: ALLOPURINOL 100 MG TAB PO SCH ×2 (08:27→19:41)
[2019-07-15] MEDS: hydrALAZINE HCL 10 MG TAB PO SCH ×2 (08:27→19:41)
[2019-07-15] MEDS: METOPROLOL TARTRATE 25 MG TAB PO SCH (08:27)
[2019-07-15] MEDS: FERROUS SULFATE 325 MG TAB PO SCH (08:27)
[2019-07-15] MEDS: MORPHINE SULFATE 2 MG/ML SYRINGE IVP PRN ×4 (08:28→20:59)
[2019-07-15] MEDS: ONDANSETRON 4 MG/2 ML VIAL IVP PRN ×2 (08:28→16:52)
[2019-07-15] MEDS: FUROSEMIDE 10 MG/ML 4 ML VIAL IV SCH ×2 (08:28→19:41)
[2019-07-15] MEDS: NICOTINE 21MG/24HR PATCH TRANSDERM SCH (08:31)
--- NOTE | 2019-07-15 10:38 | P.PN ---
Subjective Progress Note Date: 07/15/19 Seen and examined for the follow-up of acute kidney injury. No nausea vomiting diarrhea. Objective - Vital Signs Vital signs: Vital Signs Temp 98.1 F 07/15/19 08:00 Pulse 86 07/15/19 08:00 Resp 18 07/15/19 08:00 BP 153/85 07/15/19 08:00 Pulse Ox 96 07/15/19 08:00 Intake & Output 07/14/19 07/15/19 07/15/19 18:59 06:59 18:59 Intake Total 160 236 Output Total 1400 Balance 160 -1400 236 Intake: Intake, IV Titration 160 Amount Sodium Chloride 0.9% 1, 160 000 ml @ 20 mls/hr IV . [facility] Rx#:[id number] Oral 236 Output: Urine 1400 Other: Voiding Method Toilet Toilet # Voids 3 - Exam No acute distress S1-S2 heard Decreased breath sounds Abdomen distended edema - Labs CBC & Chem 7: 07/15/19 06:39 07/15/19 06:39 Labs: Abnormal Lab Results - Last 24 Hours (Table) 07/15/19 07/15/19 Range/Units 06:39 06:39 WBC 3.4 L (3.8-10.6) k/uL RBC 2.56 L (3.80-5.40) m/uL Hgb 8.1 L (11.4-16.0) gm/dL Hct 24.6 L (34.0-46.0) % Plt Count 88 L (150-450) k/uL Chloride 109 H (98-107) mmol/L BUN 33 H (7-17) mg/dL Creatinine 2.15 H (0.52-1.04) mg/dL Total Protein 5.1 L (6.3-8.2) g/dL Albumin 2.2 L (3.5-5.0) g/dL Assessment and Plan Assessment: #1 acute kidney injury and it to cardiorenal syndrome. Renal function stable. #2 chronic kidney disease stage III with a baseline creatinine 1.7 MG per DL secondary to biopsy-proven IgA nephropathy. #3 chronic liver disease secondary to hepatitis C. #4 acute on chronic diastolic CHF #5 and decompensated liver disease status post paracentesis #6 anemia with chronic kidney disease. Plan: #1 renal function stable continue diuretics 40 mg IV twice a day. #2 Avoid nephrotoxic agents and hypotensive episodes. #3 labs in the morning
[2019-07-15] MEDS: ALPRAZolam 0.25 MG TAB PO PRN ×2 (11:19→22:36)
[2019-07-15] MEDS: HYDROcodone/APAP 10-325MG 1 EACH TAB PO PRN ×2 (11:19→22:36)
--- NOTE | 2019-07-15 13:11 | P.PN ---
Subjective Progress Note Date: 07/15/19 This is a 54-year-old female patient who presented with complaints of increased shortness of breath and increased abdominal ascites. Patient has a known past medical history of liver cirrhosis requiring frequent paracentesis. Last paracentesis was approximately 2 weeks ago. Patient reports over the past week she's noticed increased swelling to lower extremities along with increased abdominal ascites patient also complains that her urine has been diminished. Patient does have known past medical history of COPD, GERD, hypertension, liver disease, renal disease, hepatitis C, portal hypertension, anxiety depression and ex-smoker. Chest x-ray completed showing normal chest. No change. EKG comple martin showing normal sinus rhythm and normal EKG. Patient's creatinine elevated to consult 1 bun 26 this is elevated compared to baseline. BNP 2990. At this time patient is complaining of some shortness of breath. IR has been consulted for possible paracentesis. Cardiology, nephrology and GI services consulted. Patient denies chest pain. Patient denies nausea vomiting or diarrhea. Patient denies any urinary burning or frequency. On 07/10/2019 patient's alert and oriented 3. Patient is status post paracentesis with 5.3 L removed. Patient remains on IV Lasix. Cardiology nephrology and GI services are currently following. Patient is still having some abdominal tenderness. Patient denies chest pain or shortness of breath. Patient denies nausea vomiting or diarrhea. Patient denies any urinary burning or frequency. On 07/11/2019 patient's alert and oriented 3. Patient states she is feeling much better following paracentesis on 07/09/2019. Patient states shortness of breath has improved significantly. She denies chest pain, denies vomiting, reports occasional nausea. Patient states she is having regular formed bowel movements. Patient denies any urinary burning or frequency. On 07/12/2019 patient's alert and oriented 3. Patient is feeling improved chronic cough on her Knee to the ER. Creatinine is trending down. Patient remains on IV Lasix. Patient denies chest pain or shortness breath. Patient denies nausea vomiting or diarrhea. Patient denies any nausea vomiting or diarrhea. Patient denies any urinary burning or frequency On 07/13/2018 patient oriented 3. Patient reports feeling some improvement with abdominal pain. Patient does complain of intermittent nausea, though is tolerating a diet and denies vomiting or diarrhea. Creatinine is 2.20 down from 2.35. Should maintain on IV Lasix per nephrology and cardiology. She denies any urinary burning or frequency. On 07/14/2019 patient was seen and examined on the medical floor she is still complaining of abdominal pain and complaining of generalized weakness otherwise she denies any complaints there is no fever or chills no headache or dizziness no chest pain no shortness of breath no cough no nausea or vomiting no diarrhea and no urinary symptom On 07/15/2019 patient's alert and oriented 3. Patient is still having some abdominal discomfort. Patient remains on IV Lasix per nephrology creatinine trending down. Patient denies chest pain or shortness breath. Patient denies nausea vomiting or diarrhea. Patient denies any urinary burning or frequency Objective - Vital Signs Vital signs: Vital Signs Temp 98.1 F 07/15/19 08:00 Pulse 86 07/15/19 08:00 Resp 18 07/15/19 08:00 BP 153/85 07/15/19 08:00 Pulse Ox 96 07/15/19 08:00 Intake & Output 07/14/19 07/15/19 07/15/19 18:59 06:59 18:59 Intake Total 160 476 Output Total 1400 Balance 160 -1400 476 Intake: Intake, IV Titration 160 Amount Sodium Chloride 0.9% 1, 160 000 ml @ 20 mls/hr IV . Q24H [facility] Rx#:[id number] Oral 476 Output: Urine 1400 Other: Voiding Method Toilet Toilet # Voids 3 - Exam Head normocephalic Neck supple Lungs clear to auscultation bilaterally no wheezing or crackles Heart regular rate and rhythm S1-S2, no rub or gallop Abdomen rounded, abdomen slightly tender in all quadrants upon palpation Extremities +1 bilateral lower extremity edema Neuro alert and orientated to 3 - Labs CBC & Chem 7: 07/15/19 06:39 07/15/19 06:39 Labs: Abnormal Lab Results - Last 24 Hours (Table) 07/15/19 07/15/19 Range/Units 06:39 06:39 WBC 3.4 L (3.8-10.6) k/uL RBC 2.56 L (3.80-5.40) m/uL Hgb 8.1 L (11.4-16.0) gm/dL Hct 24.6 L (34.0-46.0) % Plt Count 88 L (150-450) k/uL Chloride 109 H (98-107) mmol/L BUN 33 H (7-17) mg/dL Creatinine 2.15 H (0.52-1.04) mg/dL Total Protein 5.1 L (6.3-8.2) g/dL Albumin 2.2 L (3.5-5.0) g/dL Assessment and Plan Assessment: 1. Increased abdominal ascites secondary to known liver disease. GI services following. Status post paracentesis on 07/09/2019 5.3 L removed 2. Acute on chronic kidney disease stage III. Creatinine 2.20 and BUN 33. Urology services are following. Nephrology services following, maintained on IV Lasix. 3. Fluid overload secondary to chronic liver disease and acute kidney injury. Patient maintained on IV Lasix. Cardiology following. 2-D echo completed, EF 60-65%. 4. Anemia of chronic disease. Iron studies within normal limits. Per nephr ology this is due to chronic kidney disease as well as hypersplenism. Aranesp added 5. History of chronic pain. Home medications resumed 6. History of liver cirrhosis 7. History of essential hypertension 8. History of hepatitis C 9. Thrombocytopenia secondary to liver disease 10. History of nicotine dependence. 11. Constipation. Colace added. DVT prophylaxis SCDs. GI prophylaxis Protonix GI, cardiology and nephrology services consulted I performed an examination of the patient and discussed their management with the Nurse Practitioner. I have reviewed the Nurse Practitioner's notes and agree with the documented findings and plan of care
[2019-07-16] MEDS: ONDANSETRON 4 MG/2 ML VIAL IVP PRN (01:03)
[2019-07-16] MEDS: MORPHINE SULFATE 2 MG/ML SYRINGE IVP PRN ×2 (01:07→05:49)
[2019-07-16 07:38] VITALS: BP 114/72; PULSE 69; RESP 17; TEMP 98.5
[2019-07-16] MEDS: hydrALAZINE HCL 10 MG TAB PO SCH (08:25)
[2019-07-16] MEDS: METOPROLOL TARTRATE 25 MG TAB PO SCH (08:25)
[2019-07-16] MEDS: NICOTINE 21MG/24HR PATCH TRANSDERM SCH (08:25)
[2019-07-16] MEDS: FAMOTIDINE 20 MG TAB PO SCH (08:25)
[2019-07-16] MEDS: HYDROcodone/APAP 10-325MG 1 EACH TAB PO PRN (08:25)
[2019-07-16] MEDS: ALPRAZolam 0.25 MG TAB PO PRN (08:25)
[2019-07-16] MEDS: DOCUSATE 100 MG CAP PO SCH (08:26)
[2019-07-16] MEDS: MAGNESIUM OXIDE 400 MG TAB PO SCH (08:26)
[2019-07-16] MEDS: FERROUS SULFATE 325 MG TAB PO SCH (08:26)
[2019-07-16] MEDS: FUROSEMIDE 10 MG/ML 4 ML VIAL IV SCH (08:26)
[2019-07-16] MEDS: ALLOPURINOL 100 MG TAB PO SCH (08:26)
[2019-07-16] MEDS: CALCITRIOL 0.25 MCG CAP PO SCH (08:37)
[2019-07-16 08:47] LABS: Albumin 2.2 g/dL (3.5-5.0); Calcium 8.4 mg/dL (8.4-10.2); Potassium 3.8 mmol/L (3.5-5.1); Total Bilirubin 0.6 mg/dL (0.2-1.3); Total Protein 5.1 g/dL (6.3-8.2)
[2019-07-16 09:08] LABS: Basophils # (A) 0.1 k/uL (0-0.2); Basophils % (A) 2 %; Eosinophils # (A) 0.1 k/uL (0-0.7); Eosinophils % (A) 4 %; HCT 24.4 % (34.0-46.0); HGB 8.2 gm/dL (11.4-16.0); Lymphocytes # (A) 1.4 k/uL (1.0-4.8); Lymphocytes % (A) 41 %; MCH 32.1 pg (25.0-35.0); MCHC 33.7 g/dL (31.0-37.0); MCV 95.2 fL (80.0-100.0); Mean Platelet Volume 6.8; Monocytes # (A) 0.4 k/uL (0-1.0); Monocytes % (A) 10 %; Neutrophils # (A) 1.4 k/uL (1.3-7.7); Neutrophils % (A) 41 %; Platelet Count 103 k/uL (150-450); Poikilocytosis Slight; RBC 2.56 m/uL (3.80-5.40); RDW 14.4 % (11.5-15.5); WBC 3.5 k/uL (3.8-10.6)
--- NOTE | 2019-07-16 11:09 | P.PN ---
Subjective Patient is seen in follow-up for acute kidney injury on chronic kidney disease. Renal function is stable. Creatinine 2.22 today. She is maintained on Lasix 40 mg IV twice daily. Underwent paracentesis on July 09 to 5.3 L drained. Dyspnea improved. Edema gradually improving. Urine output is good. No complaints at this time. Vital signs are stable. General: The patient appeared well nourished and normally developed. HEENT: Head exam is unremarkable. Neck is without jugular venous distension. LUNGS: Lungs are clear to auscultation and percussion. Breath sounds decreased. HEART: Rate and Rhythm are regular. First and second heart sounds normal. No murmurs, rubs or gallops. ABDOMEN: Abdominal exam reveals normal bowel sounds. Non-tender. Distention noted. EXTREMITITES: Trace edema. Objective - Vital Signs Vital signs: Vital Signs Temp 98.5 F 07/16/19 07:37 Pulse 69 07/16/19 07:37 Resp 17 07/16/19 07:37 BP 114/72 07/16/19 07:37 Pulse Ox 94 L 07/16/19 07:37 Intake & Output 07/15/19 07/16/19 07/16/19 18:59 06:59 18:59 Intake Total 712 236 Output Total 1200 Balance 712 -1200 236 Weight 93.5 kg Intake: Oral 712 236 Output: Urine 1200 Other: Voiding Method Toilet Toilet # Voids 2 - Labs CBC & Chem 7: 07/16/19 07:22 07/16/19 07:22 Labs: Abnormal Lab Results - Last 24 Hours (Table) 07/16/19 07/16/19 Range/Units 07:22 07:22 WBC 3.5 L (3.8-10.6) k/uL RBC 2.56 L (3.80-5.40) m/uL Hgb 8.2 L (11.4-16.0) gm/dL Hct 24.4 L (34.0-46.0) % Plt Count 103 L (150-450) k/uL BUN 32 H (7-17) mg/dL Creatinine 2.22 H (0.52-1.04) mg/dL Total Protein 5.1 L (6.3-8.2) g/dL Albumin 2.2 L (3.5-5.0) g/dL Assessment and Plan Plan: Assessment: 1. Acute kidney injury mostly prerenal secondary to cardiorenal syndrome. Renal function is stable. Creatinine 2.22 today. 2. Chronic kidney disease stage III with baseline creatinine near 1.7 secondary to biopsy-proven IgA nephropathy. Status post steroid trial. 3. Hep C. Patient underwent antiviral therapy for three-months. Follows with GI outpatient. 4. Acute on chronic diastolic CHF. 5. Ascites status post paracentesis on July 09 at 5.3 L drained. 6. Chronic kidney disease mineral bone disease maintained on calcitriol. 7. Anemia. This is due to chronic kidney disease as well as hypersplenism. Iron replete. On Aranesp. Plan: Maintain Lasix 40 mg IV twice daily - change to oral upon discharge. Avoid nephrotoxins. Maintain low salt diet. Repeat electrolytes in the morning. Anticipate d/c soon. F/u outpatient in 1-2 weeks. BMP, mag 2-3 days post discharge.
--- NOTE | 2019-07-16 12:32 | P.DS ---
Providers Date of admission: 07/11/19 11:39 Expected date of discharge: 07/16/19 Attending physician: Kel Mason Consults: 07/09/19 00:40 Consult Physician Routine Consulting Provider: Steffen Murphy Consult Reason/Comments: heart failure Do you want consulting provider notified?: Yes Consult Physician Routine Consulting Provider: Tip Angelo Consult Reason/Comments: greg Do you want consulting provider notified?: Yes Primary care physician: Kel Mason [facility] Hospital Course: Discharge diagnosis 1. Increased abdominal ascites secondary to known liver disease. GI services following. Status post paracentesis on 07/09/2019 5.3 L removed 2. Acute on chronic kidney disease stage III. Creatinine 2.20 and BUN 33. Urology services are following. Nephrology services following, maintained on IV Lasix. Discussed case with Dr. Angelo per nephrology patient has been cleared for discharge Lasix increased to 40 mg twice a day repeat CMP ordered for 3 days patient follow-up with nephrology services 3. Fluid overload secondary to chronic liver disease and acute kidney injury. Patient maintained on IV Lasix. Cardiology following. 2-D echo completed, EF 60-65%. 4. Anemia of chronic disease. Iron studies within normal limits. Per nephrology this is due to chronic kidney disease as well as hypersplenism. Aranesp added 5. History of chronic pain. Home medications resumed 6. History of liver cirrhosis 7. History of essential hypertension 8. History of hepatitis C 9. Thrombocytopenia secondary to liver disease 10. History of nicotine dependence. 11. Constipation. Colace added. Resolved Hospital course This is a 54-year-old female patient who presented with complaints of increased shortness of breath and increased abdominal ascites. Patient has a known past medical history of liver cirrhosis requiring frequent paracentesis. Last paracentesis was approximately 2 weeks ago. Patient reports over the past week she's noticed increased swelling to lower extremities along with increased abdominal ascites patient also complains that her urine has been diminished. Patient does have known past medical history of COPD, GERD, hypertension, liver disease, renal disease, hepatitis C, portal hypertension, anxiety depression and ex-smoker. Chest x-ray completed showing normal chest. No change. EKG complet ed showing normal sinus rhythm and normal EKG. Patient's creatinine elevated to consult 1 bun 26 this is elevated compared to baseline. BNP 2990. At this time patient is complaining of some shortness of breath. IR has been consulted for possible paracentesis. Cardiology, nephrology and GI services consulted. Patient denies chest pain. Patient denies nausea vomiting or diarrhea. Patient denies any urinary burning or frequency. On 07/10/2019 patient's alert and oriented 3. Patient is status post paracentesis with 5.3 L removed. Patient remains on IV Lasix. Cardiology nephrology and GI services are currently following. Patient is still having some abdominal tenderness. Patient denies chest pain or shortness of breath. Patient denies nausea vomiting or diarrhea. Patient denies any urinary burning or frequency. On 07/11/2019 patient's alert and oriented 3. Patient states she is feeling much better following paracentesis on 07/09/2019. Patient states shortness of breath has improved significantly. She denies chest pain, denies vomiting, reports occasional nausea. Patient states she is having regular formed bowel movements. Patient denies any urinary burning or frequency. On 07/12/2019 patient's alert and oriented 3. Patient is feeling improved chronic cough on her Knee to the ER. Creatinine is trending down. Patient remains on IV Lasix. Patient denies chest pain or shortness breath. Patient denies nausea vomiting or diarrhea. Patient denies any nausea vomiting or diarrhea. Patient denies any urinary burning or frequency On 07/13/2018 patient oriented 3. Patient reports feeling some improvement with abdominal pain. Patient does complain of intermittent nausea, though is tolerating a diet and denies vomiting or diarrhea. Creatinine is 2.20 down from 2.35. Should maintain on IV Lasix per nephrology and cardiology. She denies any urinary burning or frequency. On 07/14/2019 patient was seen and examined on the medical floor she is still complaining of abdominal pain and complaining of generalized weakness otherwise she denies any complaints there is no fever or chills no headache or dizziness no chest pain no shortness of breath no cough no nausea or vomiting no diarrhea and no urinary symptom On 07/15/2019 patient's alert and oriented 3. Patient is still having some abdominal discomfort. Patient remains on IV Lasix per nephrology creatinine trending down. Patient denies chest pain or shortness breath. Patient denies nausea vomiting or diarrhea. Patient denies any urinary burning or frequency On 07/16/2019 patient's alert and oriented 3. Discussed case with nephrology patient has been discharge. Patient will be discharged on increased dose of 640 feet ID repeat CMP ordered for 2 days patient to follow-up with consulting providers in PCP her further management. Patient denies chest pain or shortness breath. Patient denies nausea vomiting and diarrhea. Patient denies any urinary burning or frequency. I performed an examination of the patient and discussed their management with the Nurse Practitioner. I have reviewed the Nurse Practitioner's notes and agree with the documented findings and plan of care Patient Condition at Discharge: Stable Plan - Discharge Summary Discharge Rx Participant: No New Discharge Prescriptions: New Furosemide [Lasix] 40 mg PO BID@0900,1600 30 Days #60 tab Continue Metoprolol Tartrate 25 mg PO DAILY ALPRAZolam [Xanax] 0.25 mg PO BID PRN PRN Reason: Anxiety HYDROcodone/APAP 10-325MG [[place] 10-325] 1 tab PO BID Pantoprazole Sodium [Protonix] 40 mg PO DAILY Allopurinol [Zyloprim] 100 mg PO BID Magnesium Oxide 400 mg PO DAILY Folic Acid 0.4 mg PO DAILY Calcitriol 0.25 mcg PO MO hydrALAZINE HCL 10 mg PO BID Ferrous Sulfate [Feosol] 325 mg PO DAILY Discontinued Furosemide [Lasix] 40 mg PO DAILY Discharge Medication List ALPRAZolam [Xanax] 0.25 mg PO BID PRN 09/13/18 [History] Metoprolol Tartrate 25 mg PO DAILY 09/13/18 [History] HYDROcodone/APAP 10-325MG [[place] 10-325] 1 tab PO BID 11/21/18 [History] Allopurinol [Zyloprim] 100 mg PO BID 01/12/19 [History] Pantoprazole Sodium [Protonix] 40 mg PO DAILY 01/12/19 [History] Calcitriol 0.25 mcg PO MO 07/08/19 [History] Ferrous Sulfate [Feosol] 325 mg PO DAILY 07/08/19 [History] Folic Acid 0.4 mg PO DAILY 07/08/19 [History] Magnesium Oxide 400 mg PO DAILY 07/08/19 [History] hydrALAZINE HCL 10 mg PO BID 07/08/19 [History] Furosemide [Lasix] 40 mg PO BID@0900,1600 30 Days #60 tab 07/16/19 [Rx] Follow up Appointment(s)/Referral(s): Livia Mcdaniel MD [STAFF PHYSICIAN] - 1 Week Kel Mason MD [Primary Care Provider] - 1-2 days Tip Angelo DO [Family Provider] - 1 Week Ambulatory/Diagnostic Orders: Comprehensive Metabolic Panel [LAB.AMB] Time Frame: 3 Days, Location: None Selected Patient Instructions/Handouts: Heart Failure (DC), Urinary Tract Infection in Women (DC), Ascites (DC)
[2019-07-16] MEDS ORDERED: FUROSEMIDE 40 MG TAB PO SCH (16:00)
--- NOTE | 2019-07-24 21:49 | CDI ---
Documentation Clarification Form Date: 07/24/19 From: Adeola Harp Phone: If you have a question about this query, please contact Agustina Ruff, Weatherization Director at [phone] between 8am and 5pm. Admit Date: 07/11/19 Discharge Date: 07/16/19 Patient Name: Heidi Smith Visit Number: [id number] ATTENTION: The Clinical Documentation Specialists (CDI) and [facility] Coding Staff appreciate your assistance in clarifying documentation. Please respond to the clarification below the line at the bottom and electronically sign. The CDI & [facility] Coding staff will review the response and follow-up if needed. Please note: Queries are made part of the Legal Health Record. If you have any questions, please contact the author of this message via ITS. Dear Dr. Kel Mason Conflicting documentation has been found in the medical record: Alcoholic liver cirrhosis is documented in the ED note, H&P and the cardiology consult note. Cirrhosis of the liver secondary to chronic hepatitis C is documented in Dr. Mcdaniel's consult note and Dr. Olson's and Dr. Mcdaniel's progress notes. Past history of alcohol use is none per documentation in the ED note, H&P, Dr. Olson's consult note. Patient has a remote history of alcohol abuse is documented in Dr. Mcdaniel's consult note. History/Risk Factors: Hepatitis C, possible history of alcohol abuse Clinical Indicators: Ascites, weakness, fatigue Treatment: Paracentesis, IV and PO Lasix In your opinion, what is the most clinically appropriate diagnosis for this patient? Cirrhosis due to Hepatitis C Cirrhosis due to alcohol Other explanation of clinical findings Unable to determine (no explanation for clinical findings) Cirrhosis secondary to chronic hepatitis C MTDD
== END 2019-07-16 14:30 | disposition home or self-care (01) | DRG 432 ==
LOC: EC 22:48 → 4SSUR 07-09 00:39 → OBSVTOIN 07-11 11:39
PROVIDERS: ADMIT Internal Medicine; ATTEND Internal Medicine
PROC: 0W9G3ZZ Drainage of Peritoneal Cavity, Percutaneous Approach (ICD-10-PCS; principal; 2019-07-09)
DX: K74.69 Other cirrhosis of liver (principal); I50.33 Acute on chronic diastolic (congestive) heart failure; N17.9 Acute kidney failure, unspecified; D61.818 Other pancytopenia; I13.0 Hypertensive heart and chronic kidney disease with heart failure and stage 1 through stage 4 chronic kidney disease, or unspecified chronic kidney disease; R18.8 Other ascites; K76.6 Portal hypertension; N18.3 Chronic kidney disease, stage 3 (moderate); B18.2 Chronic viral hepatitis C; D63.1 Anemia in chronic kidney disease; D73.1 Hypersplenism; F17.210 Nicotine dependence, cigarettes, uncomplicated; F32.9 Major depressive disorder, single episode, unspecified; F40.240 Claustrophobia; J44.9 Chronic obstructive pulmonary disease, unspecified; K21.9 Gastro-esophageal reflux disease without esophagitis; K59.00 Constipation, unspecified; E83.89 Other disorders of mineral metabolism; G89.29 Other chronic pain; F41.9 Anxiety disorder, unspecified; Z79.899 Other long term (current) drug therapy; Z88.8 Allergy status to other drugs, medicaments and biological substances; Z87.440 Personal history of urinary (tract) infections; Z98.51 Tubal ligation status
CPT/HCPCS: 36415; 49083; 71046; 80048; 80053; 81001; 83540; 83550; 83735; 83880; 85025; 85610; 85730; 87522; 93005; 93306; 99285

== ENCOUNTER 2019-07-26 12:21 | Day surgery (SDC) | payer OTHER ==
[2019-07-26 13:03] LABS: Mean Platelet Volume 7.2; Platelet Count 134 k/uL (150-450)
[2019-07-26 13:15] LABS: INR 1.1 (<1.2); Prothrombin Time 11.2 sec (9.0-12.0)
[2019-07-26 13:34] VITALS: TEMP 98.1
[2019-07-26] MEDS: ALBUMIN HUMAN 25% 50 ML in EMPTY BAG 1 BAG IVPB SCH ×2 (13:51→14:08)
[2019-07-26 14:00] VITALS: RESP 16
[2019-07-26 15:45] VITALS: BP 148/68; PULSE 70
--- NOTE | 2019-07-26 16:08 | US ---
Therapeutic paracentesis. DATE OF EXAM: 07/26/2019 CLINICAL HISTORY: Ascites The procedure was discussed with the patient. The risks, complications, benefits, and alternatives we re discussed and any questions were answered. Informed consent was obtained. The patient was placed s upine on the ultrasound table and prepped and draped in the usual sterile fashion. All elements of maximal barrier technique were utilized. Under ultrasound guidance, access into the right lower quadrant was obtained, via the paracentesis catheter system and direct ultrasound guidanc e. Approximately 3.8 liters of straw-colored fluid was removed. The patient was stable throughout the pr ocedure and remained stable upon discharge from Department of Radiology. IMPRESSION: Successful therapeutic paracentesis under ultrasound guidance.
== END 2019-07-26 14:30 | disposition home or self-care (01) ==
LOC: RADPROMAIN 12:21
PROVIDERS: ATTEND Internal Medicine
DX: R18.8 Other ascites (principal)
CPT/HCPCS: 82565; 84520; 85049; 85610; 36415; 49083; P9047

== ENCOUNTER 2019-08-09 12:04 | Day surgery (SDC) | payer OTHER ==
[2019-08-09 12:34] VITALS: TEMP 98.5
[2019-08-09 12:37] LABS: Mean Platelet Volume 8.1
[2019-08-09 12:49] LABS: Prothrombin Time 10.9 sec (9.0-12.0)
[2019-08-09 12:58] LABS: Platelet Count 82 k/uL (150-450)
[2019-08-09] MEDS: ALBUMIN HUMAN 25% 50 ML in EMPTY BAG 1 BAG IVPB SCH ×2 (13:46→13:55)
[2019-08-09] MEDS ORDERED: ALBUMIN HUMAN 25% 50 ML in EMPTY BAG 1 BAG IVPB SCH (14:00)
--- NOTE | 2019-08-09 14:57 | US ---
Therapeutic paracentesis. DATE OF EXAM: 08/09/2019 CLINICAL HISTORY: Ascites The procedure was discussed with the patient. The risks, complications, benefits, and alternatives we re discussed and any questions were answered. Informed consent was obtained. The patient was placed s upine on the ultrasound table and prepped and draped in the usual sterile fashion. All elements of maximal barrier technique were utilized. Under ultrasound guidance, access into the right lower quadrant was obtained, via the paracentesis catheter system and direct ultrasound guidanc e. Approximately 6.6 liters of straw-colored fluid was removed. The patient was stable throughout the pr ocedure and remained stable upon discharge from Department of Radiology. IMPRESSION: Successful therapeutic paracentesis under ultrasound guidance.
[2019-08-09 15:07] VITALS: BP 209/101; PULSE 75; RESP 18
== END 2019-08-09 14:45 | disposition home or self-care (01) ==
LOC: RADPROMAIN 12:04
PROVIDERS: ATTEND Internal Medicine
DX: R18.8 Other ascites (principal)
CPT/HCPCS: 82565; 84520; 85049; 85610; 49083; P9047

== ENCOUNTER 2019-08-09 15:04 | Observation (INO) | payer OTHER ==
--- NOTE | 2019-08-09 15:28 | ED ---
General Adult HPI <Torin Larsen Eladio - Last Filed: 08/09/19 19:59> - General Source: patient Limitations: no limitations <ArisJuan D - Last Filed: 08/22/19 07:25> - General Chief complaint: Shortness of Breath Stated complaint: High Blood Pressure Time Seen by Provider: 08/09/19 15:07 - History of Present Illness Initial comments: Dictation was produced using [employer] dictation software. please excuse any grammatical, word or spelling errors. Chief Complaint: 54-year-old female presents for shortness of breath. History of Present Illness: 54-year-old female presented shortness of breath. Patient was seen at the radiology clinic today. Patient prescription scheduled paracentesis for liver cirrhosis. She had about 6 L removed. Patient states initially her breath for the last week. She thought that her shortness of breath was from the abdominal ascites. However her shortness of breath did not improve after paracentesis was performed. Patient denies any chest pain. Patie nt weighs of some swelling to the left lower extremity. She denies a calf pain popliteal pain or medial thigh pain. Patient has a history of blood clots. Patient smokes regularly. She does have a diagnosis of COPD. She does feel like she is wheezing. The ROS documented in this emergency department record has been reviewed and confirmed by me. Those systems with pertinent positive or negative responses have been documented in the HPI. All other systems are other negative and/or noncontributory. PHYSICAL EXAM: General Impression: Alert and oriented x3, not in acute distress HEENT: Normocephalic atraumatic, extra-ocular movements intact, pupils equal and reactive to light bilaterally, mucous membranes moist. Cardiovascular: Heart regular rate and rhythm, S1&S2 audible, no murmurs, rubs or gallops Chest: Lungs clear to auscultation bilaterally, no rhonchi, no wheeze, no rales Abdomen: Bowel sounds present, abdomen soft, non-tender, non-distended, no organomegaly Musculoskeletal: Pulses present and equal in all extremities, no peripheral edema, minimal increasing girth of the left lower extremity, no calf tenderness, no popliteal tenderness to either extremity Motor: no focal deficits noted Neurological: CN II-XII grossly intact, no focal motor or sensory deficits noted Skin: Intact with no visualized rashes Psych: Normal affect and mood ED course: 54-year-old feel presents with chief complaint of dyspnea. Vital signs upon arrival shows blood pressure 190 01/24/2021, worse vital signs within acceptable limits. Lungs are clear to auscultation bilaterally. Laboratory evaluation obtained. No leukocytosis. Patient is a hemoglobin of 8.0 which appears to be patient's baseline. Coag panel unremarkable. D-dimer is elevated at 1.7. Patient has not gap acidosis. Rest metabolic panel is unremarkable. Given the patient's elevated d-dimer and there is concern that she has pulmonary embolus because she has clear lung findings and some swelling to the left lower extremity. Patient has history of kidney disease with elevated renal markers. Decision was made along with patient and radiologist to get nuclear medicine scan looking for perfusion defect. Patient will be sent out to Dr. Larsen, for follow-up of VQ scan and ultrasound of the left lower extremity. EKG interpretation: Ventricular rate 73, normal sinus rhythm,. Interval 164, care is 82, QTc 467. No TX prolongation, no QTC prolongation, no ST or T-wave changes noted. Overall, this EKG is unremarkable (Juan Hurst) - Related Data Home Medications Medication Instructions Recorded Confirmed ALPRAZolam [Xanax] 0.25 mg PO HS 09/13/18 08/20/19 Metoprolol Tartrate 25 mg PO DAILY 09/13/18 08/20/19 HYDROcodone/APAP 10-325MG [[place] 1 tab PO BID 11/21/18 08/20/19 10-325] Allopurinol [Zyloprim] 100 mg PO BID 01/12/19 08/20/19 Pantoprazole Sodium [Protonix] 40 mg PO DAILY 01/12/19 08/20/19 Calcitriol 0.25 mcg PO MO 07/08/19 08/20/19 Ferrous Sulfate [Feosol] 325 mg PO DAILY 07/08/19 08/20/19 Folic Acid 0.4 mg PO DAILY 07/08/19 08/20/19 Magnesium Oxide 400 mg PO DAILY 07/08/19 08/20/19 Levothyroxine Sodium [Synthroid] 25 mcg PO DAILY 08/09/19 08/20/19 Previous Rx's Medication Instructions Recorded Furosemide [Lasix] 40 mg PO DAILY 30 Days #30 tab 08/10/19 Furosemide [Lasix] 80 mg PO DAILY 30 Days #30 tablet 08/10/19 hydrALAZINE HCL 25 mg PO TID 30 Days #90 tablet 08/10/19 predniSONE 10 mg PO DIRECTED 12 Days #30 08/10/19 tab Allergies Allergy/AdvReac Type Severity Reaction Status Date / Time bupropion [From Wellbutrin] AdvReac seizure Verified 08/20/19 15:52 Review of Systems ROS Other: All systems not noted in ROS Statement are negative. <Torin Larsen - Last Filed: 08/09/19 19:59> ROS Other: All systems not noted in ROS Statement are negative. <Juan Hurst - Last Filed: 08/22/19 07:25> ROS Statement: Those systems with pertinent positive or pertinent negative responses have been documented in the HPI. Past Medical History Past Medical History: Heart Failure, COPD, GERD/Reflux, Hypertension, Liver Disease, Renal Disease Additional Past Medical History / Comment(s): Pt recently admitted to [facility] on 03/02/19 with gastroenteritis/nausea/vomiting/diarrhea/abdominal pain/ascities/UTI and had negative Cdiff. Other hx: Hep C, alcoholic liver cirrhosis, portal HTN, abdominal ascities, IGa nephropathy, thromobocytopenia, CKD stage IV, anemia, severe protein calorie malnutrition, frequent diarrhea, low back pain from an injury. History of Any Multi-Drug Resistant Organisms: None Reported Past Surgical History: Tubal Ligation Additional Past Surgical History / Comment(s): multiple Paracentesis Past Anesthesia/Blood Transfusion Reactions: No Reported Reaction Additional Past Anesthesia/Blood Transfusion Reaction / Comment(s): claustrophobia Past Psychological History: Anxiety, Depression Smoking Status: Current every day smoker Past Alcohol Use History: None Reported Past Drug Use History: None Reported - Past Family History Father History Unknown: Yes Family Medical History: Cancer Additional Family Medical History / Comment(s): Unk type of cancer. Father is . Mother History Unknown: Yes Family Medical History: AFIB, Congestive Heart Failure (CHF), Myocardial Infarction ([place]), Seizure Disorder Additional Family Medical History / Comment(s): Mother had a TN at the age of 52 yrs. She is . <Juan Hurst - Last Filed: 08/22/19 07:25> General Exam General appearance: alert, in no apparent distress, anxious Head exam: Present: atraumatic, normocephalic, normal inspection Eye exam: Present: normal appearance, PERRL, EOMI. Absent: scleral icterus, conjunctival injection, periorbital swelling ENT exam: Present: normal exam, mucous membranes moist Neck exam: Present: normal inspection. Absent: tenderness, meningismus, lymphadenopathy Respiratory exam: Present: respiratory distress, wheezes, rales, decreased breath sounds, prolonged expiratory. Absent: rhonchi, stridor Cardiovascular Exam: Present: regular rate, normal rhythm, normal heart sounds. Absent: systolic murmur, diastolic murmur, rubs, gallop, clicks GI/Abdominal exam: Present: soft, normal bowel sounds. Absent: distended, tenderness, guarding, rebound, rigid Extremities exam: Present: normal inspection, full ROM, normal capillary refill. Absent: tenderness, pedal edema, joint swelling, calf tenderness Back exam: Present: normal inspection Neurological exam: Present: alert, oriented X3, CN II-XII intact Psychiatric exam: Present: normal affect, normal mood Skin exam: Present: warm, dry, intact, normal color. Absent: rash <Torin Larsen - Last Filed: 08/09/19 19:59> Limitations: no limitations <Juan Hurst - Last Filed: 08/22/19 07:25> Course <Torin Larsen - Last Filed: 08/09/19 19:59> Vital Signs 08/09/19 08/09/19 08/09/19 15:05 15:10 15:12 Temperature 98.2 F Pulse Rate 73 72 Respiratory 20 26 H 18 Rate Blood Pressure 195/121 186/97 O2 Sat by Pulse 99 99 Oximetry 08/09/19 08/09/19 08/09/19 15:30 16:56 16:59 Temperature Pulse Rate 72 75 71 Respiratory 20 16 20 Rate Blood Pressure 184/95 184/95 171/95 O2 Sat by Pulse 98 98 98 Oximetry 08/09/19 08/09/19 08/09/19 18:00 19:05 20:47 Temperature 98.6 F Pulse Rate 78 73 79 Respiratory 18 18 18 Rate Blood Pressure 178/87 190/95 184/95 O2 Sat by Pulse 98 98 99 Oximetry 08/09/19 20:58 Temperature 97.8 F Pulse Rate 73 Respiratory 20 Rate Blood Pressure 127/90 O2 Sat by Pulse 98 Oximetry - Reevaluation(s) Reevaluation #1: 08/09/19 19:59 medical record is reviewed (Torin Larsen) Reevaluation #2: 08/09/19 19:59 patient is still sob w cough, pain (Torin Larsen) Reevaluation #3: 08/09/19 20:00 Patient having elevated blood pressure will treat patient's blood pressure (Torin Larsen) Medical Decision Making - Lab Data Result diagrams: 08/09/19 15:43 08/09/19 15:43 - Radiology Data Radiology results: report reviewed (Chest x-rays positive for CHF, med scan nuc med scan is low likelihood for PE), image reviewed <Torin Larsen - Last Filed: 08/09/19 19:59> - Lab Data Result diagrams: 08/10/19 08:54 08/10/19 08:54 <Juan Hurst - Last Filed: 08/22/19 07:25> - Medical Decision Making 54 female the ER for evaluation shortness of breath issues of VQ scan here which is negative x-ray shows likely CHF versus bronchitis, patient is wheezing with history of COPD we'll admit for breathing treatments and diuresis (Torin Larsen) - Lab Data Lab Results 08/09/19 08/09/19 08/09/19 Range/Units 15:43 15:43 15:43 WBC 3.9 (3.8-10.6) k/uL RBC 2.49 L (3.80-5.40) m/uL Hgb 8.0 L (11.4-16.0) gm/dL Hct 23.3 L (34.0-46.0) % MCV 93.4 (80.0-100.0) fL MCH 32.1 (25.0-35.0) pg MCHC 34.3 (31.0-37.0) g/dL RDW 15.6 H (11.5-15.5) % Plt Count 71 L (150-450) k/uL Neutrophils % 53 % Lymphocytes % 34 % Monocytes % 7 % Eosinophils % 3 % Basophils % 1 % Neutrophils # 2.1 (1.3-7.7) k/uL Lymphocytes # 1.3 (1.0-4.8) k/uL Monocytes # 0.3 (0-1.0) k/uL Eosinophils # 0.1 (0-0.7) k/uL Basophils # 0.0 (0-0.2) k/uL Poikilocytosis Slight PT 11.5 (9.0-12.0) sec INR 1.1 (<1.2) APTT 27.7 (22.0-30.0) sec D-Dimer 1.71 H (<0.60) mg/L FEU Sodium 141 (137-145) mmol/L Potassium 4.5 (3.5-5.1) mmol/L Chloride 118 H (98-107) mmol/L Carbon Dioxide 17 L (22-30) mmol/L Anion Gap 6 mmol/L BUN 28 H (7-17) mg/dL Creatinine 1.88 H (0.52-1.04) mg/dL Est GFR (CKD-EPI)AfAm 35 (>60 ml/min/1.73 sqM) Est GFR (CKD-EPI)NonAf 30 (>60 ml/min/1.73 sqM) Glucose 82 (74-99) mg/dL Calcium 8.5 (8.4-10.2) mg/dL Magnesium 2.0 (1.6-2.3) mg/dL Troponin I (0.000-0.034) ng/mL 08/09/19 Range/Units 15:43 WBC (3.8-10.6) k/uL RBC (3.80-5.40) m/uL Hgb (11.4-16.0) gm/dL Hct (34.0-46.0) % MCV (80.0-100.0) fL MCH (25.0-35.0) pg MCHC (31.0-37.0) g/dL RDW (11.5-15.5) % Plt Count (150-450) k/uL Neutrophils % % Lymphocytes % % Monocytes % % Eosinophils % % Basophils % % Neutrophils # (1.3-7.7) k/uL Lymphocytes # (1.0-4.8) k/uL Monocytes # (0-1.0) k/uL Eosinophils # (0-0.7) k/uL Basophils # (0-0.2) k/uL Poikilocytosis PT (9.0-12.0) sec INR (<1.2) APTT (22.0-30.0) sec D-Dimer (<0.60) mg/L FEU Sodium (137-145) mmol/L Potassium (3.5-5.1) mmol/L Chloride (98-107) mmol/L Carbon Dioxide (22-30) mmol/L Anion Gap mmol/L BUN (7-17) mg/dL Creatinine (0.52-1.04) mg/dL Est GFR (CKD-EPI)AfAm (>60 ml/min/1.73 sqM) Est GFR (CKD-EPI)NonAf (>60 ml/min/1.73 sqM) Glucose (74-99) mg/dL Calcium (8.4-10.2) mg/dL Magnesium (1.6-2.3) mg/dL Troponin I <0.012 (0.000-0.034) ng/mL Disposition Is patient prescribed a controlled substance at d/c from ED?: No <Torin Larsen - Last Filed: 08/09/19 19:59> Decision Time: 07:25 <Juan Hurst - Last Filed: 08/22/19 07:25> Clinical Impression: Acute exacerbation of chronic obstructive pulmonary disease, Acute pulmonary edema, Congestive heart failure, Acute respiratory failure, Abdominal pain, Alcoholic liver disease Disposition: ADMITTED IP TO THIS HOSP Condition: Stable
[2019-08-09 15:51] LABS: Basophils % (A) 1 %; Eosinophils # (A) 0.1 k/uL (0-0.7); Eosinophils % (A) 3 %; HCT 23.3 % (34.0-46.0); Lymphocytes # (A) 1.3 k/uL (1.0-4.8); Lymphocytes % (A) 34 %; MCH 32.1 pg (25.0-35.0); MCHC 34.3 g/dL (31.0-37.0); MCV 93.4 fL (80.0-100.0); Mean Platelet Volume 8.7; Monocytes # (A) 0.3 k/uL (0-1.0); Monocytes % (A) 7 %; Neutrophils # (A) 2.1 k/uL (1.3-7.7); Neutrophils % (A) 53 %; Platelet Count 71 k/uL (150-450); Poikilocytosis Slight; RBC 2.49 m/uL (3.80-5.40); RDW 15.6 % (11.5-15.5); WBC 3.9 k/uL (3.8-10.6)
[2019-08-09 16:04] LABS: Calcium 8.5 mg/dL (8.4-10.2); INR 1.1 (<1.2); Partial Thromboplastin Time 27.7 sec (22.0-30.0); Potassium 4.5 mmol/L (3.5-5.1); Prothrombin Time 11.5 sec (9.0-12.0)
--- NOTE | 2019-08-09 16:07 | XR ---
EXAMINATION TYPE: XR chest 2V DATE OF EXAM: 08/09/2019 COMPARISON: 07/09/2019 HISTORY: 54-year-old female shortness of breath, dyspnea TECHNIQUE: PA and lateral views FINDINGS: Heart borderline enlarged. Mild interstitial/vascular prominence. No consolidation or pleural effusio n. IMPRESSION: 1. Borderline cardiomegaly. 2. Interstitial prominence could reflect mild pulmonary vascular congestion, bronchitis, or asthma.
[2019-08-09 16:36] LABS: D-Dimer 1.71 mg/L FEU (<0.60)
[2019-08-09] MEDS ORDERED: SODIUM CHLORIDE 0.9% 1,000 ML IV STA (16:41)
[2019-08-09] MEDS ORDERED: HYDROcodone/APAP 5-325MG 1 EACH TAB PO STA (16:46)
--- NOTE | 2019-08-09 18:13 | NM ---
EXAMINATION TYPE: NM pul vent and perfuse DATE OF EXAM: 08/09/2019 COMPARISON: 09/13/2018 HISTORY: Short of breath TECHNIQUE: Utilizing inhalation of 35.5 mCi Tc 99m DTPA aerosol and intravenous injection of 5.02 mC i of Tc 99m MAA, ventilation and perfusion images are acquired post injection in multiple projections . FINDINGS: There is some clumping of the tracer on the aerosol images in the central airways. There is a mild ma tched defect involving the posterior aspect of the left lower lobe. The other lung downs are fairly normal and show normal perfusion. IMPRESSION: There is a matched defect involving the posterior aspect of the left lower lobe that is more consiste nt with airway disease. This is a change compared to old exam of 09/13/2018. There is overall low pro bability of pulmonary embolism.
--- NOTE | 2019-08-09 19:02 | US ---
EXAMINATION TYPE: US venous doppler duplex LE LT DATE OF EXAM: 08/09/2019 5:44 PM COMPARISON: US CLINICAL HISTORY: LLE swelling. Left lower extremity swelling x 3 days. No hx of DVT. Patient does no t take blood thinners. SIDE PERFORMED: Left TECHNIQUE: The lower extremity deep venous system is examined utilizing real time linear array sonog radha with graded compression, doppler sonography and color-flow sonography. VESSELS IMAGED: External Iliac Vein (EIV) Common Femoral Vein Deep Femoral Vein Greater Saphenous Vein * Femoral Vein Popliteal Vein Small Saphenous Vein * Proximal Calf Veins (* superficial vessels) Left Leg: No evidence of DVT in veins imaged from prox calf veins to EIV. IMPRESSION: No evidence of deep venous thrombosis in the left leg.
[2019-08-09] MEDS ORDERED: IPRATROPIUM-ALBUTEROL 3 ML NEB INHALATION PRN (19:57)
[2019-08-09] MEDS ORDERED: methylPREDNISolone SOD SUCCI 125 MG/2 ML VIAL IV STA (19:57)
[2019-08-09] MEDS ORDERED: hydrALAZINE HCL 20 MG/ML 1 ML VIAL IVP PRN (20:13)
[2019-08-09] MEDS ORDERED: ENALAPRILAT 1.25 MG/ML 1 ML VIAL IVP STA (20:13)
[2019-08-09] MEDS: ALBUTEROL NEBULIZED 2.5 MG/3 ML INHALATION SCH (21:22)
[2019-08-09] MEDS ORDERED: ALPRAZolam 0.25 MG TAB PO SCH (23:15)
[2019-08-09] MEDS: FUROSEMIDE 10 MG/ML 4 ML VIAL IV SCH (23:22)
[2019-08-09] MEDS: HYDROcodone/APAP 10-325MG 1 EACH TAB PO SCH (23:23)
[2019-08-09] MEDS: methylPREDNISolone SOD SUCCI 125 MG/2 ML VIAL IV SCH (23:23)
[2019-08-09] MEDS: hydrALAZINE HCL 10 MG TAB PO SCH (23:27)
[2019-08-10] MEDS: HYDROmorphone 0.5 MG/0.5 ML SYRINGE IVP PRN ×2 (05:11→14:02)
[2019-08-10] MEDS: methylPREDNISolone SOD SUCCI 125 MG/2 ML VIAL IV SCH ×2 (05:55→12:22)
[2019-08-10] MEDS ORDERED: LEVOTHYROXINE 25 MCG TAB PO SCH (06:30)
[2019-08-10] MEDS: ALBUTEROL NEBULIZED 2.5 MG/3 ML INHALATION SCH ×3 (07:07→15:42)
[2019-08-10] MEDS: FUROSEMIDE 10 MG/ML 4 ML VIAL IV SCH (08:22)
[2019-08-10] MEDS: HYDROcodone/APAP 10-325MG 1 EACH TAB PO SCH (08:23)
[2019-08-10] MEDS: hydrALAZINE HCL 10 MG TAB PO SCH (08:23)
[2019-08-10] MEDS ORDERED: PANTOPRAZOLE 40 MG TABLET PO SCH (09:00)
[2019-08-10] MEDS ORDERED: MAGNESIUM OXIDE 400 MG TAB PO SCH (09:00)
[2019-08-10] MEDS ORDERED: FERROUS SULFATE 325 MG TAB PO SCH (09:00)
[2019-08-10] MEDS ORDERED: FOLIC ACID 1 MG TAB PO SCH (09:00)
[2019-08-10] MEDS ORDERED: ALLOPURINOL 100 MG TAB PO SCH (09:00)
[2019-08-10] MEDS ORDERED: METOPROLOL TARTRATE 25 MG TAB PO SCH (09:00)
[2019-08-10] MEDS ORDERED: predniSONE 5 MG TAB PO SCH (09:00)
[2019-08-10 09:13] LABS: Basophils % (A) 0 %; Eosinophils % (A) 1 %; HCT 23.7 % (34.0-46.0); HGB 8.1 gm/dL (11.4-16.0); Lymphocytes # (A) 0.3 k/uL (1.0-4.8); Lymphocytes % (A) 12 %; MCH 31.9 pg (25.0-35.0); MCHC 34.2 g/dL (31.0-37.0); MCV 93.1 fL (80.0-100.0); Mean Platelet Volume 7.6; Monocytes % (A) 2 %; Neutrophils # (A) 2.1 k/uL (1.3-7.7); Neutrophils % (A) 86 %; Poikilocytosis Slight; RBC 2.54 m/uL (3.80-5.40); RDW 15.3 % (11.5-15.5); WBC 2.5 k/uL (3.8-10.6)
[2019-08-10 09:25] LABS: Platelet Count 64 k/uL (150-450)
[2019-08-10 09:28] LABS: Albumin 2.6 g/dL (3.5-5.0); Total Bilirubin 0.7 mg/dL (0.2-1.3); Total Protein 5.6 g/dL (6.3-8.2)
--- NOTE | 2019-08-10 09:48 | P.HPIM ---
History of Present Illness H&P Date: 08/10/19 Chief Complaint: Shortness of breath and high blood pressure This is a 54-year-old female patient who presented to ER after having a paracentesis with complaints of ongoing shortness of breath and elevated blood pressure. Patient has a known past medical history of liver cirrhosis in which she undergoes paracentesis is approximately every 2 weeks. Patient had 6 L removed. Patient thought the shortness of breath was associated with increased ascites but shortness of breath and not subside post paracentesis. Additional medical history includes CHF, COPD, GERD, hypertension, liver disease, chronic renal disease, hepatitis C and alcoholic liver cirrhosis. Patient's blood pressure also quite elevated on admission. Patient did receive IV medication to help lower blood pressure in ER. D-dimer elevated at 1.71. Chest x-ray completed showing borderline cardiomegaly interstitial prominence could reflect mild pulmonary vascular congestion bronchitis or asthma. VQ scan completed due to elevated d-dimer showing matched defect involving the posterior aspects of the left lower lobe that is more consistent with airway disease. There is a change compared to old exam there's overall low probability for pulmonary embolism. Venous Doppler completed showing no evidence of deep vein thrombosis in the left leg. Patient started on IV Lasix and IV Solu-Medrol along with DuoNeb breathing treatments. Pulmonary cardiology services have been consulted. Patient is currently resting comfortably in bed. Patient reports she feels significantly improved from yesterday. Patient denies any chest pain or shortness of breath. Patient denies nausea vomiting or diarrhea. Patient denies any urinary burning or frequency. Review of Systems Please refer to HPI otherwise unremarkable Past Medical History Past Medical History: Heart Failure, COPD, GERD/Reflux, Hypertension, Liver Disease, Renal Disease Additional Past Medical History / Comment(s): Pt recently admitted to [facility] on 03/02/19 with gastroenteritis/nausea/vomiting/diarrhea/abdominal pain/ascities/UTI and had negative Cdiff. Other hx: Hep C, alcoholic liver cirrhosis, portal HTN, abdominal ascities, IGa nephropathy, thromobocytopenia, CKD stage IV, anemia, severe protein calorie malnutrition, frequent diarrhea, low back pain from an injury. History of Any Multi-Drug Resistant Organisms: None Reported Past Surgical History: Tubal Ligation Additional Past Surgical History / Comment(s): multiple Paracentesis Past Anesthesia/Blood Transfusion Reactions: No Reported Reaction Additional Past Anesthesia/Blood Transfusion Reaction / Comment(s): claustrophobia Past Psychological History: Anxiety, Depression Additional Psychological History / Comment(s): Pt resides with significant other in an apartment. She does not drive. She is otherwise independent. Smoking Status: Current every day smoker Past Alcohol Use History: None Reported Additional Past Alcohol Use History / Comment(s): Started smoking at age 12, used to smoke 1 ppd but has cut down to 1/2 ppd. Pt quit drinking July 2018, used to drink rum & beer-8 beers daily & liquor also daily Past Drug Use History: None Reported - Past Family History Father History Unknown: Yes Family Medical History: Cancer Additional Family Medical History / Comment(s): Unk type of cancer. Father is . Mother History Unknown: Yes Family Medical History: AFIB, Congestive Heart Failure (CHF), Myocardial Infarction (NM), Seizure Disorder Additional Family Medical History / Comment(s): Mother had a NM at the age of 52 yrs. She is . Medications and Allergies Home Medications Medication Instructions Recorded Confirmed Type ALPRAZolam [Xanax] 0.25 mg PO HS 09/13/18 08/09/19 History Metoprolol Tartrate 25 mg PO DAILY 09/13/18 08/09/19 History HYDROcodone/APAP 10-325MG [[place] 1 tab PO BID 11/21/18 08/09/19 History 10-325] Allopurinol [Zyloprim] 100 mg PO BID 01/12/19 08/09/19 History Pantoprazole Sodium [Protonix] 40 mg PO DAILY 01/12/19 08/09/19 History Calcitriol 0.25 mcg PO MO 07/08/19 08/09/19 History Ferrous Sulfate [Feosol] 325 mg PO DAILY 07/08/19 08/09/19 History Folic Acid 0.4 mg PO DAILY 07/08/19 08/09/19 History Magnesium Oxide 400 mg PO DAILY 07/08/19 08/09/19 History hydrALAZINE HCL 10 mg PO BID 07/08/19 08/09/19 History Furosemide [Lasix] 40 mg PO BID@0900,1600 30 Days #60 07/16/19 08/09/19 Rx tab predniSONE 5 mg PO DAILY 07/26/19 08/09/19 History Levothyroxine Sodium [Synthroid] 25 mcg PO DAILY 08/09/19 08/09/19 History Allergies Allergy/AdvReac Type Severity Reaction Status Date / Time bupropion [From Wellbutrin] AdvReac seizure Verified 08/09/19 19:43 Physical Exam Vitals: Vital Signs Temp Pulse Pulse Resp BP BP Pulse Ox 08/10/19 07:19 72 08/10/19 07:08 68 08/10/19 04:55 98.2 F 76 20 174/77 96 08/09/19 21:31 72 08/09/19 21:30 98.7 F 75 20 170/95 98 08/09/19 21:22 72 08/09/19 20:58 97.8 F 73 20 127/90 98 08/09/19 20:47 98.6 F 79 18 184/95 99 08/09/19 19:05 73 18 190/95 98 08/09/19 18:00 78 18 178/87 98 08/09/19 16:59 71 20 171/95 98 08/09/19 16:56 75 16 184/95 98 08/09/19 15:30 72 20 184/95 98 08/09/19 15:12 72 18 186/97 99 08/09/19 15:10 26 H 08/09/19 15:05 98.2 F 73 20 195/121 99 Intake and Output 08/09/19 08/10/19 08/10/19 22:59 06:59 14:59 Other: # Voids 1 1 Weight 93.44 kg 91.1 kg Head normocephalic Neck supple Lungs clear to auscultation bilaterally no wheezing or crackles Heart regular rate and rhythm S1-S2, no rub or gallop Abdomen is soft nontender nondistended positive bowel sounds no hepatosplenomegaly Extremities no edema Neuro alert and orientated to 3 Results CBC & Chem 7: 08/10/19 08:54 08/10/19 08:54 Labs: Abnormal Lab Results - Last 24 Hours (Table) 08/09/19 08/09/19 08/09/19 Range/Units 15:43 15:43 15:43 WBC (3.8-10.6) k/uL RBC 2.49 L (3.80-5.40) m/uL Hgb 8.0 L (11.4-16.0) gm/dL Hct 23.3 L (34.0-46.0) % RDW 15.6 H (11.5-15.5) % Plt Count 71 L (150-450) k/uL Lymphocytes # (1.0-4.8) k/uL D-Dimer 1.71 H (<0.60) mg/L FEU Chloride 118 H (98-107) mmol/L Carbon Dioxide 17 L (22-30) mmol/L BUN 28 H (7-17) mg/dL Creatinine 1.88 H (0.52-1.04) mg/dL Glucose (74-99) mg/dL Calcium (8.4-10.2) mg/dL Total Protein (6.3-8.2) g/dL Albumin (3.5-5.0) g/dL 08/10/19 08/10/19 Range/Units 08:54 08:54 WBC 2.5 L (3.8-10.6) k/uL RBC 2.54 L (3.80-5.40) m/uL Hgb 8.1 L (11.4-16.0) gm/dL Hct 23.7 L (34.0-46.0) % RDW (11.5-15.5) % Plt Count 64 L (150-450) k/uL Lymphocytes # 0.3 L (1.0-4.8) k/uL D-Dimer (<0.60) mg/L FEU Chloride 116 H (98-107) mmol/L Carbon Dioxide 17 L (22-30) mmol/L BUN 27 H (7-17) mg/dL Creatinine 1.81 H (0.52-1.04) mg/dL Glucose 258 H (74-99) mg/dL Calcium 8.0 L (8.4-10.2) mg/dL Total Protein 5.6 L (6.3-8.2) g/dL Albumin 2.6 L (3.5-5.0) g/dL Thrombosis Risk Factor Assmnt - Choose All That Apply Any of the Below Risk Factors Present?: Yes Each Factor Represents 1 point: Abnormal pulmonary function (COPD), Heart failure (<1month), Obesity (BMI >25), Swollen legs (current) Other Risk Factors: No Thrombosis Risk Factor Assessment Total Risk Factor Score: 4 Thrombosis Risk Factor Assessment Level: Moderate Risk Assessment and Plan Assessment: 1. Increased shortness of breath secondary to CHF exacerbation and COPD exacerbation. BNP elevated at 12,600. 2-D echo has been ordered Patient is currently IV Lasix and IV Solu-Medrol along with DuoNeb breathing treatments pulmonary and cardiology services consulted. 2. History of recurring ascites secondary to chronic alcoholic liver cirrhosis. Patient is status post paracentesis on 08/09/2019 6 L removed 3. History of COPD. Patient is currently on IV Solu-Medrol and DuoNeb breathing treatments. Pulmonary services have been consulted. Chest x-ray completed showing borderline cardiomegaly interstitial prominence could reflect mild pulmonary vascular congestion bronchitis or asthma 4. Elevated d-dimer. VQ scan completed showing there is a matched defect involving the posterior aspect of the left lower lobe that is more consistent with airway disease there is a change compared to old exam. There is overall low probability of pulmonary embolism. Lower extremity Doppler completed showing no evidence for DVT in the left leg 5. Hypertensive urgency. Patient having elevated blood pressure upon arrival 195/121. Patient was given IV medications in ER. Cardiology services have been consulted [place] resumed 6. Chronic kidney disease stage III. Creatinine 1.81 and bun 27 this does appear baseline for patient 7. Anemia of chronic disease 8. History of chronic pain. Home medications resumed 9. History of liver cirrhosis 10. History of hepatitis C 11. Thrombocytopenia secondary to liver disease 12. History of nicotine dependence DVT prophylaxis SCDs due to thrombocytopenia. GI prophylaxis Pepcid Time with Patient: Greater than 30 (Greater than 60% of the total time spent in counseling and coordination of care. I performed an examination of the patient and discussed their management with the Nurse Practitioner. I have reviewed the Nurse Practitioner's notes and agree with the documented findings and plan of care)
--- NOTE | 2019-08-10 11:28 | P.CNPUL ---
History of Present Illness Consult date: 08/10/19 Requesting physician: Kel Mason Reason for consult: dyspnea Chief complaint: Shortness of breath History of present illness: This is a very pleasant 54-year-old female patient who follows with Dr. Mason as her primary care physician. She has a history of alcoholic cirrhosis, hepatitis C, hypertension, stage IV chronic kidney disease, chronic and ongoing tobacco dependence, chronic obstructive pulmonary disease, anxiety/depression. She does require frequent paracentesis nearly every 2 weeks due to the cirrhosis. Yesterday she had a paracentesis with 6.6 L of straw-colored fluid removed. Usually this alleviates any shortness of breath that she has at times but yesterday it did not. She was seen in the emergency room for the same. Chest x-ray showed borderline cardiomegaly with mild pulmonary vascular congestion. VQ scan revealed low probability of pulmonary embolism. Doppler of the lower extremities were negative. She is seen today in consultation on the regular medical floor. She is awake and alert in no acute distress. She is breathing quite a bit easier today as compared to yesterday. No cough or congestion. No fever, chills or night sweats. She has been afebrile. Maintaining good O2 saturations in the mid 90s on room air. Somewhat hypertensive. White count 2.5. Hemoglobin 8.1. Platelet count 64,000. Sodium 140. Potassium 4.0. Bicarb 17. Creatinine 1.81. Troponins negative 3. ProBNP 12,600. She was initiated on bronchodilators, IV Solu-Medrol, IV diuretics. She is hoping to go home. Review of Systems REVIEW OF SYSTEMS: CONSTITUTIONAL: Denies any recent significant weight loss or weight gain. EYES: Denies change in vision. EARS, NOSE, MOUTH, THROAT: Denies headaches, denies sore throat. CARDIOVASCULAR: Denies chest pain, palpitations or syncopal episodes. RESPIRATORY: Positive for shortness of breath, no cough, congestion or hemoptysis. GASTROINTESTINAL: Denies change in appetite, denies abdominal pain GENITOURINARY: Denies hematuria, denies infections. MUSKULOSKELETAL: Denies pain, denies swelling. INTEGUMENTARY: Denies rash, denies eczema. NEUROLOGICAL: Denies recent memory loss, no recent seizure activity. PSYCHIATRIC: Denies anxiety, denies depression. HEMATOLOGIC/LYMPHATIC: Denies anemia, denies enlarged lymph nodes. Past Medical History Past Medical History: Heart Failure, COPD, GERD/Reflux, Hypertension, Liver Disease, Renal Disease Additional Past Medical History / Comment(s): Pt recently admitted to [facility] on 03/02/19 with gastroenteritis/nausea/vomiting/diarrhea/abdominal pain/ascities/UTI and had negative Cdiff. Other hx: Hep C, alcoholic liver cirrhosis, portal HTN, abdominal ascities, IGa nephropathy, thromobocytopenia, CKD stage IV, anemia, severe protein calorie malnutrition, frequent diarrhea, low back pain from an injury. History of Any Multi-Drug Resistant Organisms: None Reported Past Surgical History: Tubal Ligation Additional Past Surgical History / Comment(s): multiple Paracentesis Past Anesthesia/Blood Transfusion Reactions: No Reported Reaction Additional Past Anesthesia/Blood Transfusion Reaction / Comment(s): claustrophobia Past Psychological History: Anxiety, Depression Additional Psychological History / Comment(s): Pt resides with significant other in an apartment. She does not drive. She is otherwise independent. Smoking Status: Current every day smoker Past Alcohol Use History: None Reported Additional Past Alcohol Use History / Comment(s): Started smoking at age 12, used to smoke 1 ppd but has cut down to 1/2 ppd. Pt quit drinking July 2018, used to drink rum & beer-8 beers daily & liquor also daily Past Drug Use History: None Reported - Past Family History Father History Unknown: Yes Family Medical History: Cancer Additional Family Medical History / Comment(s): Unk type of cancer. Father is . Mother History Unknown: Yes Family Medical History: AFIB, Congestive Heart Failure (CHF), Myocardial Infarction (AR), Seizure Disorder Additional Family Medical History / Comment(s): Mother had a AR at the age of 52 yrs. She is . Medications and Allergies Home Medications Medication Instructions Recorded Confirmed Type ALPRAZolam [Xanax] 0.25 mg PO HS 09/13/18 08/09/19 History Metoprolol Tartrate 25 mg PO DAILY 09/13/18 08/09/19 History HYDROcodone/APAP 10-325MG [Bronson 1 tab PO BID 11/21/18 08/09/19 History 10-325] Allopurinol [Zyloprim] 100 mg PO BID 01/12/19 08/09/19 History Pantoprazole Sodium [Protonix] 40 mg PO DAILY 01/12/19 08/09/19 History Calcitriol 0.25 mcg PO MO 07/08/19 08/09/19 History Ferrous Sulfate [Feosol] 325 mg PO DAILY 07/08/19 08/09/19 History Folic Acid 0.4 mg PO DAILY 07/08/19 08/09/19 History Magnesium Oxide 400 mg PO DAILY 07/08/19 08/09/19 History hydrALAZINE HCL 10 mg PO BID 07/08/19 08/09/19 History Furosemide [Lasix] 40 mg PO BID@0900,1600 30 Days #60 07/16/19 08/09/19 Rx tab predniSONE 5 mg PO DAILY 07/26/19 08/09/19 History Levothyroxine Sodium [Synthroid] 25 mcg PO DAILY 08/09/19 08/09/19 History Allergies Allergy/AdvReac Type Severity Reaction Status Date / Time bupropion [From Wellbutrin] AdvReac seizure Verified 08/09/19 19:43 Physical Exam Vitals: Vital Signs Temp Pulse Pulse Resp BP BP Pulse Ox 08/10/19 11:04 70 08/10/19 10:53 72 08/10/19 07:19 72 08/10/19 07:08 68 08/10/19 04:55 98.2 F 76 20 174/77 96 08/09/19 21:31 72 08/09/19 21:30 98.7 F 75 20 170/95 98 08/09/19 21:22 72 08/09/19 20:58 97.8 F 73 20 127/90 98 08/09/19 20:47 98.6 F 79 18 184/95 99 08/09/19 19:05 73 18 190/95 98 08/09/19 18:00 78 18 178/87 98 08/09/19 16:59 71 20 171/95 98 08/09/19 16:56 75 16 184/95 98 08/09/19 15:30 72 20 184/95 98 08/09/19 15:12 72 18 186/97 99 08/09/19 15:10 26 H 08/09/19 15:05 98.2 F 73 20 195/121 99 Intake and Output 08/09/19 08/10/19 08/10/19 22:59 06:59 14:59 Other: # Voids 1 1 Weight 93.44 kg 91.1 kg GENERAL EXAM: Alert, pleasant 54-year-old female patient, on room air, comfortable in no apparent distress. HEAD: Normocephalic. EYES: Normal reaction of pupils, equal size. NOSE: Clear with pink turbinates. THROAT: No erythema or exudates. NECK: No masses, no JVD. CHEST: No chest wall deformity. LUNGS: Equal air entry with no crackles, wheeze, rhonchi or dullness. CVS: S1 and S2 normal with no audible murmur, regular rhythm. ABDOMEN: Slightly distended. No hepatosplenomegaly, normal bowel sounds, no guarding or rigidity. SPINE: No scoliosis or deformity SKIN: No rashes CENTRAL NERVOUS SYSTEM: No focal deficits, tone is normal in all 4 extremities. EXTREMITIES: There is no peripheral edema. No clubbing, no cyanosis. Peripheral pulses are intact. Results - Laboratory Findings CBC and BMP: 08/10/19 08:54 08/10/19 08:54 PT/INR, D-dimer PT 11.5 sec (9.0-12.0) 08/09/19 15:43 INR 1.1 (<1.2) 08/09/19 15:43 D-Dimer 1.71 mg/L FEU (<0.60) H 08/09/19 15:43 Abnormal lab findings: Abnormal Labs 08/09/19 08/09/19 08/09/19 15:43 15:43 15:43 WBC RBC 2.49 L Hgb 8.0 L Hct 23.3 L RDW 15.6 H Plt Count 71 L Lymphocytes # D-Dimer 1.71 H Chloride 118 H Carbon Dioxide 17 L BUN 28 H Creatinine 1.88 H Glucose Calcium Total Protein Albumin 08/10/19 08/10/19 08:54 08:54 WBC 2.5 L RBC 2.54 L Hgb 8.1 L Hct 23.7 L RDW Plt Count 64 L Lymphocytes # 0.3 L D-Dimer Chloride 116 H Carbon Dioxide 17 L BUN 27 H Creatinine 1.81 H Glucose 258 H Calcium 8.0 L Total Protein 5.6 L Albumin 2.6 L - Diagnostic Findings Chest x-ray: image reviewed Assessment and Plan Assessment: 1 Dyspnea secondary to mild pulmonary venous congestion secondary to cirrhosis 2 Alcoholic cirrhosis requiring paracentesis every 2 weeks. Most recently 08/09/2019 with 6.6 L removed 3 History of hepatitis C 4 Chronic and ongoing tobacco dependence 5 Chronic obstructive pulmonary disease not on maintenance inhalers 6 History of daily alcohol use, quit July 2018 7 History of chronic kidney disease stage IV 8 Pancytopenia. 9 Anxiety/depression Plan: The patient was seen and evaluated by Dr. Alvarez. Chest x-ray, VQ scan and labs all reviewed. The patient has been treated with IV diuretics, IV Solu-Medrol and bronchodilators. She is improved and is hoping to go home once cleared medically. Upon discharge she could complete a prednisone taper. Follow-up in our office where we will perform full pulmonary function testing to evaluate the severity of her COPD and make recommendations regarding maintenance medications. She is educated regarding the importance of complete smoking cessation. I, the cosigning physician, performed a history & physical examination of the patient. Lungs sounds are clear. Maintaining good O2 saturations in the 90s on room air. I discussed the assessment and plan of care with my nurse practitioner, Brenda Guadarrama. I attest to the above note as dictated by her. Time with Patient: Greater than 30
--- NOTE | 2019-08-10 11:39 | P.CRDCN ---
History of Present Illness History of present illness: HISTORY OF PRESENTING ILLNESS This is a pleasant 54-year-old female past medical history significant for alcoholic liver cirrhosis, hepatitis C, chronic kidney disease, anemia, thr ombocytopenia, ascites requiring paracentesis every other week, former heavy alcohol intake quit July 2018, chronic nicotine dependence, COPD and gastroesophageal reflux disease. She denies prior history of coronary artery disease. She presented with shortness of breath. She does not follow in the office with a title i paraprofessional for any reason. We have been asked to see him in consultation for CHF. She states she undergoes scheduled paracentesis' every 2 weeks. She was scheduled for Aug 09 however the week leading up to this she felt increasingly short of breath and felt a pressure on her chest like her abdomen was pushing up and crowding her chest. She states she had over 6 liters drained. Last evening she got up to walk to the bathroom and felt short of breath like she had before her paracentesis. the chest discomfort resolved. She was started on IV diuresis in the ER and states she feels back to her baseline. No further shortness of breath or chest pain. DIAGNOSTICS EKG reveals sinus mechanism with no acute ST or T wave abnormalities noted. Chest xray interstitial prominence. Laboratory reviewed, cardiac enzymes negative 3, WBC 2.5, hemoglobin 8.1, platelets 64, d-dimer 1.71, sodium 140, potassium 4.0, creatinine 1.81, magnesium 2.0, proBNP 12,600. Current cardiac medications include hydralazine 10 mg twice a day, Lopressor 25 mg daily, Lasix 40 mg twice a day. Most recent echocardiogram obtained June 2019 reveals preserved LV systolic function with ejection fraction 60-65%, mild pulmonary hypertension with RVSP 38 mmHg. REVIEW OF SYSTEMS At the time of my exam: CONSTITUTIONAL: Denies fever or chills. CARDIOVASCULAR: Denies chest pain, shortness of breath, orthopnea, PND or palpitations. RESPIRATORY: Denies cough. GASTROINTESTINAL: Denies abdominal pain, diarrhea, constipation, nausea or vomiting. MUSCULOSKELETAL: Denies myalgias. NEUROLOGIC: Denies numbness, tingling or weakness. ENDOCRINE: Denies fatigue, weight change, polydipsia or polyurina. GENITOURINARY: Denies burning, hematuria or urgency with micturation. HEMATOLOGIC: Denies history of anemia or bleeding. PHYSICAL EXAMINATION Blood pressure 174/77 heart rate 70 afebrile and maintaining oxygen saturaiton on room air. CONSTITUTIONAL: No apparent distress. HEENT: Head is normocephalic. Pupils are equal, round. Sclerae anicteric. Mucous membranes of the mouth are moist. Mildly elvated julgular veins. No carotid bruit. CHEST EXAMINATION: Lungs are clear to auscultation. No chest wall tenderness is noted on palpation or with deep breathing. HEART EXAMINATION: Regular rate and rhythm. S1, S2 heard. No murmurs, gallops or rub. ABDOMEN: Soft, nontender. Positive bowel sounds. EXTREMITIES: 2+ peripheral pulses, left lower extremity 1+ pitting edema (pt states is chronic), no edema on the right and no calf tenderness. NEUROLOGIC EXAMINATION: Patient is awake, alert and oriented x3. ASSESSMENT Fluid overload secondary to chronic liver disease Chronic ascites requiring frequent scheduled paracentesis every other week Hypertension Alcoholic liver cirrhosis Hepatitis C Anemia Thrombocytopenia Chronic nicotine dependence PLAN Continue IV lasix per primary care team. No evidence to suggest cardiac etiology for fluid overload, this is secondary to chronic liver disease. Likely will require more fluid removed at scheduled paracentesis. Recommend increasing her home dose of lasix to 80 mg in the AM and 40 in the afternoon. Consider addition of aldactone. No further cardiac work-up required at this time. Smoking cessation recommended. We will follow as needed. Thank you kindly for this consultation. Nurse Practitioner note has been reviewed, I agree with a documented findings and plan of care. Patient was seen and examined. Past Medical History Past Medical History: Heart Failure, COPD, GERD/Reflux, Hypertension, Liver Disease, Renal Disease Additional Past Medical History / Comment(s): Pt recently admitted to [facility] on 03/02/19 with gastroenteritis/nausea/vomiting/diarrhea/abdominal pain/ascities/UTI and had negative Cdiff. Other hx: Hep C, alcoholic liver cirrhosis, portal HTN, abdominal ascities, IGa nephropathy, thromobocytopenia, CKD stage IV, anemia, severe protein calorie malnutrition, frequent diarrhea, low back pain from an injury. History of Any Multi-Drug Resistant Organisms: None Reported Past Surgical History: Tubal Ligation Additional Past Surgical History / Comment(s): multiple Paracentesis Past Anesthesia/Blood Transfusion Reactions: No Reported Reaction Additional Past Anesthesia/Blood Transfusion Reaction / Comment(s): claustrophobia Past Psychological History: Anxiety, Depression Additional Psychological History / Comment(s): Pt resides with significant other in an apartment. She does not drive. She is otherwise independent. Smoking Status: Current every day smoker Past Alcohol Use History: None Reported Additional Past Alcohol Use History / Comment(s): Started smoking at age 12, used to smoke 1 ppd but has cut down to 1/2 ppd. Pt quit drinking July 2018, used to drink rum & beer-8 beers daily & liquor also daily Past Drug Use History: None Reported - Past Family History Father History Unknown: Yes Family Medical History: Cancer Additional Family Medical History / Comment(s): Unk type of cancer. Father is . Mother History Unknown: Yes Family Medical History: AFIB, Congestive Heart Failure (CHF), Myocardial Infarction (MS), Seizure Disorder Additional Family Medical History / Comment(s): Mother had a MS at the age of 52 yrs. She is . Medications and Allergies Home Medications Medication Instructions Recorded Confirmed Type ALPRAZolam [Xanax] 0.25 mg PO HS 09/13/18 08/09/19 History Metoprolol Tartrate 25 mg PO DAILY 09/13/18 08/09/19 History HYDROcodone/APAP 10-325MG [Minier 1 tab PO BID 11/21/18 08/09/19 History 10-325] Allopurinol [Zyloprim] 100 mg PO BID 01/12/19 08/09/19 History Pantoprazole Sodium [Protonix] 40 mg PO DAILY 01/12/19 08/09/19 History Calcitriol 0.25 mcg PO MO 07/08/19 08/09/19 History Ferrous Sulfate [Feosol] 325 mg PO DAILY 07/08/19 08/09/19 History Folic Acid 0.4 mg PO DAILY 07/08/19 08/09/19 History Magnesium Oxide 400 mg PO DAILY 07/08/19 08/09/19 History hydrALAZINE HCL 10 mg PO BID 07/08/19 08/09/19 History Furosemide [Lasix] 40 mg PO BID@0900,1600 30 Days #60 07/16/19 08/09/19 Rx tab predniSONE 5 mg PO DAILY 07/26/19 08/09/19 History Levothyroxine Sodium [Synthroid] 25 mcg PO DAILY 08/09/19 08/09/19 History Allergies Allergy/AdvReac Type Severity Reaction Status Date / Time bupropion [From Wellbutrin] AdvReac seizure Verified 08/09/19 19:43 Physical Exam Vitals: Vital Signs Temp Pulse Pulse Resp BP BP Pulse Ox 08/10/19 11:04 70 08/10/19 10:53 72 08/10/19 07:19 72 08/10/19 07:08 68 08/10/19 04:55 98.2 F 76 20 174/77 96 08/09/19 21:31 72 08/09/19 21:30 98.7 F 75 20 170/95 98 08/09/19 21:22 72 08/09/19 20:58 97.8 F 73 20 127/90 98 08/09/19 20:47 98.6 F 79 18 184/95 99 08/09/19 19:05 73 18 190/95 98 08/09/19 18:00 78 18 178/87 98 08/09/19 16:59 71 20 171/95 98 08/09/19 16:56 75 16 184/95 98 08/09/19 15:30 72 20 184/95 98 08/09/19 15:12 72 18 186/97 99 08/09/19 15:10 26 H 08/09/19 15:05 98.2 F 73 20 195/121 99 Intake and Output 08/09/19 08/10/19 08/10/19 22:59 06:59 14:59 Other: # Voids 1 1 Weight 93.44 kg 91.1 kg Results 08/10/19 08:54 08/10/19 08:54 Cardiac Enzymes 08/09/19 08/09/19 08/10/19 Range/Units 15:43 23:20 03:37 AST (14-36) U/L Troponin I <0.012 <0.012 <0.012 (0.000-0.034) ng/mL 08/10/19 Range/Units 08:54 AST 27 (14-36) U/L Troponin I (0.000-0.034) ng/mL Coagulation 08/09/19 Range/Units 15:43 PT 11.5 (9.0-12.0) sec APTT 27.7 (22.0-30.0) sec CBC 11/14/19 11/15/19 Range/Units 15:43 08:54 WBC 3.9 2.5 L (3.8-10.6) k/uL RBC 2.49 L 2.54 L (3.80-5.40) m/uL Hgb 8.0 L 8.1 L (11.4-16.0) gm/dL Hct 23.3 L 23.7 L (34.0-46.0) % Plt Count 71 L 64 L (150-450) k/uL Comprehensive Metabolic Panel 08/09/19 08/10/19 Range/Units 15:43 08:54 Sodium 141 140 (137-145) mmol/L Potassium 4.5 4.0 (3.5-5.1) mmol/L Chloride 118 H 116 H (98-107) mmol/L Carbon Dioxide 17 L 17 L (22-30) mmol/L BUN 28 H 27 H (7-17) mg/dL Creatinine 1.88 H 1.81 H (0.52-1.04) mg/dL Glucose 82 258 H (74-99) mg/dL Calcium 8.5 8.0 L (8.4-10.2) mg/dL AST 27 (14-36) U/L ALT 16 (9-52) U/L Alkaline Phosphatase 69 (38-126) U/L Total Protein 5.6 L (6.3-8.2) g/dL Albumin 2.6 L (3.5-5.0) g/dL Current Medications Generic Name Dose Route Start Last Admin Trade Name Freq PRN Reason Stop Dose Admin Hydrocodone Bitart/Acetaminophen 1 each 08/09/19 23:15 08/10/19 08:23 Minier 10 PO 1 each BID [facility] Administration Albuterol Sulfate 2.5 mg 08/09/19 20:00 08/10/19 10:52 Ventolin Nebulized INHALATION 2.5 mg RT-QID [facility] Administration Albuterol/Ipratropium 3 ml 08/09/19 19:57 Duoneb 0.5 Mg-3 Mg/3 Ml Soln INHALATION RT-Q4H PRN Shortness Of Breath Or Wheezing Allopurinol 100 mg 08/10/19 09:00 08/10/19 08:23 Zyloprim PO 100 mg BID [facility] Administration Alprazolam 0.25 mg 08/09/19 23:15 08/09/19 23:22 Xanax PO 0.25 mg HS [facility] Administration Calcitriol 0.25 mcg 08/13/19 23:04 Rocaltrol PO MO [facility] Famotidine 20 mg 08/11/19 09:00 Pepcid PO DAILY [facility] Ferrous Sulfate 325 mg 08/10/19 09:00 08/10/19 08:23 Feosol PO 325 mg DAILY [facility] Administration Folic Acid 0.5 mg 08/10/19 09:00 08/10/19 08:23 Folic Acid PO 0.5 mg DAILY [facility] Administration Furosemide 40 mg 08/09/19 20:00 08/10/19 08:22 Lasix IV 40 mg Q12H [facility] Administration Hydralazine HCl 10 mg 08/09/19 20:13 Apresoline IVP Q6HR PRN Blood Pressure - High Hydralazine HCl 10 mg 08/09/19 23:15 08/10/19 08:23 Apresoline PO 10 mg BID [facility] Administration Hydromorphone HCl 0.5 mg 08/09/19 23:09 08/10/19 05:11 Dilaudid IVP 0.5 mg Q4HR PRN Administration Pain Insulin Aspart 0 unit 08/10/19 12:30 Novolog SQ ACHS [facility] Protocol Levothyroxine Sodium 25 mcg 08/10/19 06:30 08/10/19 05:55 Synthroid PO 25 mcg DAILY@0630 [facility] Administration Magnesium Oxide 400 mg 08/10/19 09:00 08/10/19 08:23 Mag-Ox PO 400 mg DAILY [facility] Administration Methylprednisolone Sodium Succinate 60 mg 08/10/19 00:00 08/10/19 05:55 Solu-Medrol IV 60 mg Q6HR [facility] Administration Metoprolol Tartrate 25 mg 08/10/19 09:00 08/10/19 08:23 Lopressor PO 25 mg DAILY [facility] Administration Pantoprazole Sodium 40 mg 08/10/19 09:00 08/10/19 08:23 Protonix PO 40 mg DAILY [facility] Administration Prednisone 5 mg 08/10/19 09:00 08/10/19 08:23 PO 5 mg DAILY [facility] Administration Intake and Output 08/09/19 08/10/19 08/10/19 22:59 06:59 14:59 Other: # Voids 1 1 Weight 93.44 kg 91.1 kg 08/10/19 08:54 08/10/19 08:54
[2019-08-10 11:56] VITALS: BMI 35.6
[2019-08-10 12:30] LABS: Glucose,Whole Blood 236 mg/dL (75-99)
[2019-08-10] MEDS ORDERED: INSULIN ASPART (NovoLOG) 100 UNIT/ML VIAL SQ SCH (12:30)
[2019-08-10 13:19] VITALS: PULSE 81; RESP 16; TEMP 98.3
[2019-08-10 14:39] VITALS: BP 167/82
--- NOTE | 2019-08-10 15:14 | P.PN ---
Subjective Progress Note Date: 08/10/19 Discharge diagnosis 1. Increased shortness of breath secondary to fluid overload from known liver cirrhosis and COPD exacerbation. BNP elevated at 12,600. 2-D echo has been ordered Patient is currently IV Lasix and IV Solu-Medrol along with DuoNeb breathing treatments pulmonary and cardiology services consulted. Patient was evaluated by cardiology services, per cardiology no evidence to suggest cardiac etiology for fluid overload this is secondary to chronic liver disease recommend increasing home dose of Lasix 80 mg in a.m. and 40 in the afternoon. Patient cleared for discharge from cardiology standpoint 2. History of recurring ascites secondary to chronic alcoholic liver cirrhosis. Patient is status post paracentesis on 08/09/2019 6 L removed 3. History of COPD. Patient is currently on IV Solu-Medrol and DuoNeb breathing treatments. Pulmonary services have been consulted. Chest x-ray completed showing borderline cardiomegaly interstitial prominence could reflect mild pulmonary vascular congestion bronchitis or asthma. For pulmonary services patient has been cleared for discharge from pulmonary standpoint patient may be DC'd home on prednisone taper. Patient to follow-up with pulmonary services for full pulmonary function test in outpatient setting 4. Elevated d-dimer. VQ scan completed showing there is a matched defect involving the posterior aspect of the left lower lobe that is more consistent with airway disease there is a change compared to old exam. There is overall low probability of pulmonary embolism. Lower extremity Doppler completed showing no evidence for DVT in the left leg 5. Hypertensive urgency. Patient having elevated blood pressure upon arrival 195/121. Patient was given IV medications in ER. Cardiology services have been consulted Homans resumed 6. Chronic kidney disease stage III. Creatinine 1.81 and bun 27 this does appear baseline for patient 7. Anemia of chronic disease 8. History of chronic pain. Home medications resumed 9. History of liver cirrhosis 10. History of hepatitis C 11. Thrombocytopenia secondary to liver disease 12. History of nicotine dependence Hospital course This is a 54-year-old female patient who presented to ER after having a parace ntesis with complaints of ongoing shortness of breath and elevated blood pressure. Patient has a known past medical history of liver cirrhosis in which she undergoes paracentesis is approximately every 2 weeks. Patient had 6 L removed. Patient thought the shortness of breath was associated with increased ascites but shortness of breath and not subside post paracentesis. Additional medical history includes CHF, COPD, GERD, hypertension, liver disease, chronic renal disease, hepatitis C and alcoholic liver cirrhosis. Patient's blood pressure also quite elevated on admission. Patient did receive IV medication to help lower blood pressure in ER. D-dimer elevated at 1.71. Chest x-ray comp leted showing borderline cardiomegaly interstitial prominence could reflect mild pulmonary vascular congestion bronchitis or asthma. VQ scan completed due to elevated d-dimer showing matched defect involving the posterior aspects of the left lower lobe that is more consistent with airway disease. There is a change compared to old exam there's overall low probability for pulmonary embolism. Venous Doppler completed showing no evidence of deep vein thrombosis in the left leg. Patient started on IV Lasix and IV Solu-Medrol along with DuoNeb breathing treatments. Pulmonary cardiology services have been consulted. Patient is currently resting comfortably in bed. Patient reports she feels significantly improved from yesterday. Patient denies any chest pain or shortness of breath. Patient denies nausea vomiting or diarrhea. Patient denies any urinary burning or frequency. On 08/10/2018 patient is alert and oriented 3. Patient feels much improved in vertical home. Patient was evaluated by both cardiology and pulmonary services. Pulmonary services recommended prednisone taper and outpatient follow-up. Cardiology recommends increase in Lasix dose etiology for fluid overload state chronic liver disease. He should follow-up GI services for further paracentesis is. Will order CMP to monitor kidney function with increased dose of Lasix. Hydralazine also increased due to high blood pressure. Patient follow-up with PCP and consulting providers for further management. Patient denies chest pain or shortness breath. Patient denies nausea vomiting or diarrhea. Patient de nies any urinary burning or frequency. I performed an examination of the patient and discussed their management with the Nurse Practitioner. I have reviewed the Nurse Practitioner's notes and agree with the documented findings and plan of care Objective - Vital Signs Vital signs: Vital Signs Temp 98.3 F 08/10/19 13:00 Pulse 81 08/10/19 13:00 Resp 16 08/10/19 13:00 BP 167/82 08/10/19 14:38 Pulse Ox 99 08/10/19 13:00 Intake & Output 08/09/19 08/10/19 08/10/19 18:59 06:59 18:59 Weight 93.44 kg 91.1 kg 91.1 kg Other: # Voids 1 2 - Labs CBC & Chem 7: 08/10/19 08:54 08/10/19 08:54 Labs: Abnormal Lab Results - Last 24 Hours (Table) 08/09/19 08/09/19 08/09/19 Range/Units 15:43 15:43 15:43 WBC (3.8-10.6) k/uL RBC 2.49 L (3.80-5.40) m/uL Hgb 8.0 L (11.4-16.0) gm/dL Hct 23.3 L (34.0-46.0) % RDW 15.6 H (11.5-15.5) % Plt Count 71 L (150-450) k/uL Lymphocytes # (1.0-4.8) k/uL D-Dimer 1.71 H (<0.60) mg/L FEU Chloride 118 H (98-107) mmol/L Carbon Dioxide 17 L (22-30) mmol/L BUN 28 H (7-17) mg/dL Creatinine 1.88 H (0.52-1.04) mg/dL Glucose (74-99) mg/dL POC Glucose (mg/dL) (75-99) mg/dL Calcium (8.4-10.2) mg/dL Total Protein (6.3-8.2) g/dL Albumin (3.5-5.0) g/dL 08/10/19 08/10/19 08/10/19 Range/Units 08:54 08:54 12:15 WBC 2.5 L (3.8-10.6) k/uL RBC 2.54 L (3.80-5.40) m/uL Hgb 8.1 L (11.4-16.0) gm/dL Hct 23.7 L (34.0-46.0) % RDW (11.5-15.5) % Plt Count 64 L (150-450) k/uL Lymphocytes # 0.3 L (1.0-4.8) k/uL D-Dimer (<0.60) mg/L FEU Chloride 116 H (98-107) mmol/L Carbon Dioxide 17 L (22-30) mmol/L BUN 27 H (7-17) mg/dL Creatinine 1.81 H (0.52-1.04) mg/dL Glucose 258 H (74-99) mg/dL POC Glucose (mg/dL) 236 H (75-99) mg/dL Calcium 8.0 L (8.4-10.2) mg/dL Total Protein 5.6 L (6.3-8.2) g/dL Albumin 2.6 L (3.5-5.0) g/dL
--- NOTE | 2019-08-10 15:22 | P.DS ---
Providers Date of admission: 08/09/19 19:57 Expected date of discharge: 08/10/19 Attending physician: Kel Mason Consults: 08/10/19 08:31 Consult Physician Routine Consulting Provider: Ashanti Armijo Consult Reason/Comments: CHF exacerbation Do you want consulting provider notified?: Yes 08/10/19 08:32 Consult Physician Routine Consulting Provider: Harshil Alvarez Consult Reason/Comments: COPD exacerbation Do you want consulting provider notified?: Yes Primary care physician: Kel [facility] Hospital Course: discharge diagnosis 1. Increased shortness of breath secondary to fluid overload from known liver cirrhosis and COPD exacerbation. BNP elevated at 12,600. 2-D echo has been ordered Patient is currently IV Lasix and IV Solu-Medrol along with DuoNeb breathing treatments pulmonary and cardiology services consulted. Patient was evaluated by cardiology services, per cardiology no evidence to suggest cardiac etiology for fluid overload this is secondary to chronic liver disease recommend increasing home dose of Lasix 80 mg in a.m. and 40 in the afternoon. Patient cleared for discharge from cardiology standpoint 2. History of recurring ascites secondary to chronic alcoholic liver cirrhosis. Patient is status post paracentesis on 08/09/2019 6 L removed 3. History of COPD. Patient is currently on IV Solu-Medrol and DuoNeb ben thing treatments. Pulmonary services have been consulted. Chest x-ray completed showing borderline cardiomegaly interstitial prominence could reflect mild pulmonary vascular congestion bronchitis or asthma. For pulmonary services patient has been cleared for discharge from pulmonary standpoint patient may be DC'd home on prednisone taper. Patient to follow-up with pulmonary services for full pulmonary function test in outpatient setting 4. Elevated d-dimer. VQ scan completed showing there is a matched defect involving the posterior aspect of the left lower lobe that is more consistent w ith airway disease there is a change compared to old exam. There is overall low probability of pulmonary embolism. Lower extremity Doppler completed showing no evidence for DVT in the left leg 5. Hypertensive urgency. Patient having elevated blood pressure upon arrival 195/121. Patient was given IV medications in ER. Cardiology services have been consulted Homans resumed 6. Chronic kidney disease stage III. Creatinine 1.81 and bun 27 this does appear baseline for patient 7. Anemia of chronic disease 8. History of chronic pain. Home medications resumed 9. History of liver cirrhosis 10. History of hepatitis C 11. Thrombocytopenia secondary to liver disease 12. History of nicotine dependenceT Hospital course his is a 54-year-old female patient who presented to ER after having a paracentesis with complaints of ongoing shortness of breath and elevated blood pressure. Patient has a known past medical history of liver cirrhosis in which she undergoes paracentesis is approximately every 2 weeks. Patient had 6 L removed. Patient thought the shortness of breath was associated with increased ascites but shortness of breath and not subside post paracentesis. Additional medical history includes CHF, COPD, GERD, hypertension, liver disease, chronic renal disease, hepatitis C and alcoholic liver cirrhosis. Patient's blood pressure also quite elevated on admission. Patient did receive IV medication to help lower blood pressure in ER. D-dimer elevated at 1.71. Chest x-ray completed showing borderline cardiomegaly interstitial prominence could reflect mild pulmonary vascular congestion bronchitis or asthma. VQ scan completed due to elevated d-dimer showing matched defect involving the posterior aspects of the left lower lobe that is more consistent with airway disease. There is a change compared to old exam there's overall low probability for pulmonary embolism. Venous Doppler completed showing no evidence of deep vein thrombosis in the left leg. Patient started on IV Lasix and IV Solu-Medrol along with DuoNeb breathing treatments. Pulmonary cardiology services have been consulted. Patient is currently resting comfortably in bed. Patient reports she feels significantly improved from yesterday. Patient denies any chest pain or shortness of breath. Patient denies nausea vomiting or diarrhea. Patient denies any urinary burning or frequency. On 08/10/2018 patient is alert and oriented 3. Patient feels much improved in vertical home. Patient was evaluated by both cardiology and pulmonary services. Pulmonary services recommended prednisone taper and outpatient follow-up. Cardiology recommends increase in Lasix dose etiology for fluid overload state chronic liver disease. He should follow-up GI services for further paracentesis is. Will order CMP to monitor kidney function with increased dose of Lasix. Hydralazine also increased due to high blood pressure. Patient follow-up with PCP and consulting providers for further management. Patient denies chest pain or shortness breath. Patient denies nausea vomiting or diarrhea. Patient denies any urinary burning or frequency. I performed an examination of the patient and discussed their management with the Nurse Practitioner. I have reviewed the Nurse Practitioner's notes and agree with the documented findings and plan of care Patient Condition at Discharge: Stable Plan - Discharge Summary New Discharge Prescriptions: New predniSONE 10 mg PO DIRECTED 12 Days #30 tab hydrALAZINE HCL 25 mg PO TID 30 Days #90 tablet Furosemide [Lasix] 80 mg PO DAILY 30 Days #30 tablet Continue Metoprolol Tartrate 25 mg PO DAILY ALPRAZolam [Xanax] 0.25 mg PO HS HYDROcodone/APAP 10-325MG [[place] 10-325] 1 tab PO BID Pantoprazole Sodium [Protonix] 40 mg PO DAILY Allopurinol [Zyloprim] 100 mg PO BID Magnesium Oxide 400 mg PO DAILY Folic Acid 0.4 mg PO DAILY Calcitriol 0.25 mcg PO MO Ferrous Sulfate [Feosol] 325 mg PO DAILY Levothyroxine Sodium [Synthroid] 25 mcg PO DAILY Changed Furosemide [Lasix] 40 mg PO DAILY 30 Days #30 tab Discontinued hydrALAZINE HCL 10 mg PO BID predniSONE 5 mg PO DAILY Discharge Medication List ALPRAZolam [Xanax] 0.25 mg PO HS 09/13/18 [History] Metoprolol Tartrate 25 mg PO DAILY 09/13/18 [History] HYDROcodone/APAP 10-325MG [[place] 10-325] 1 tab PO BID 11/21/18 [History] Allopurinol [Zyloprim] 100 mg PO BID 01/12/19 [History] Pantoprazole Sodium [Protonix] 40 mg PO DAILY 01/12/19 [History] Calcitriol 0.25 mcg PO MO 07/08/19 [History] Ferrous Sulfate [Feosol] 325 mg PO DAILY 07/08/19 [History] Folic Acid 0.4 mg PO DAILY 07/08/19 [History] Magnesium Oxide 400 mg PO DAILY 07/08/19 [History] Levothyroxine Sodium [Synthroid] 25 mcg PO DAILY 08/09/19 [History] Furosemide [Lasix] 40 mg PO DAILY 30 Days #30 tab 08/10/19 [Rx] Furosemide [Lasix] 80 mg PO DAILY 30 Days #30 tablet 08/10/19 [Rx] hydrALAZINE HCL 25 mg PO TID 30 Days #90 tablet 08/10/19 [Rx] predniSONE 10 mg PO DIRECTED 12 Days #30 tab 08/10/19 [Rx] Follow up Appointment(s)/Referral(s): Harshil Alvarez MD [STAFF PHYSICIAN] - 1 Week Kel Mason MD [Primary Care Provider] - 1-2 days Delfin العلي MD [STAFF PHYSICIAN] - 1 Week Ambulatory/Diagnostic Orders: Comprehensive Metabolic Panel [LAB.AMB] Time Frame: 3 Days, Location: None Selected Discharge Disposition: HOME SELF-CARE
[2019-08-10] MEDS ORDERED: hydrALAZINE HCL 10 MG TAB PO SCH (16:00)
[2019-08-11] MEDS ORDERED: FAMOTIDINE 20 MG TAB PO SCH (09:00)
[2019-08-13 09:02] LABS: Hemoglobin A1C 3.7
[2019-08-13] MEDS ORDERED: CALCITRIOL 0.25 MCG CAP PO SCH (23:04)
== END 2019-08-10 16:49 | disposition home or self-care (01) ==
LOC: EC 15:04 → 4MS4W 19:57
PROVIDERS: ADMIT Internal Medicine; ATTEND Internal Medicine
DX: J44.1 Chronic obstructive pulmonary disease with (acute) exacerbation (principal); K70.31 Alcoholic cirrhosis of liver with ascites; I16.0 Hypertensive urgency; N18.4 Chronic kidney disease, stage 4 (severe); D63.8 Anemia in other chronic diseases classified elsewhere; G89.29 Other chronic pain; B19.20 Unspecified viral hepatitis C without hepatic coma; D69.59 Other secondary thrombocytopenia; I13.0 Hypertensive heart and chronic kidney disease with heart failure and stage 1 through stage 4 chronic kidney disease, or unspecified chronic kidney disease; I50.9 Heart failure, unspecified; K76.6 Portal hypertension; K21.9 Gastro-esophageal reflux disease without esophagitis; D61.818 Other pancytopenia; K52.9 Noninfective gastroenteritis and colitis, unspecified; M54.5 Low back pain; E43 Unspecified severe protein-calorie malnutrition; N02.8 Recurrent and persistent hematuria with other morphologic changes; F32.9 Major depressive disorder, single episode, unspecified; F41.9 Anxiety disorder, unspecified; J96.00 Acute respiratory failure, unspecified whether with hypoxia or hypercapnia; F40.240 Claustrophobia; F17.210 Nicotine dependence, cigarettes, uncomplicated; E66.9 Obesity, unspecified; Z68.35 Body mass index [BMI] 35.0-35.9, adult; Z79.899 Other long term (current) drug therapy; Z79.891 Long term (current) use of opiate analgesic; Z88.8 Allergy status to other drugs, medicaments and biological substances; Z79.890 Hormone replacement therapy; Z87.440 Personal history of urinary (tract) infections; Z87.19 Personal history of other diseases of the digestive system; Z86.718 Personal history of other venous thrombosis and embolism; Z80.9 Family history of malignant neoplasm, unspecified; Z82.49 Family history of ischemic heart disease and other diseases of the circulatory system; Z82.0 Family history of epilepsy and other diseases of the nervous system
CPT/HCPCS: 96376 ×2; 96375 ×3; 96361; 96374; 99285; 36415; 94640 ×3; 93005; 85379; 83880; 80053; 80048; 83735; 84484 ×2; 85025 ×2; 85610; 85730; 83036; 71046; 93971; 78582; G0378 ×2; A9540; A9567; J1940 ×2; J2930 ×2; J7512; J1170

== ENCOUNTER 2019-08-20 12:19 | Day surgery (SDC) | payer OTHER ==
[2019-08-20 12:47] VITALS: RESP 20; TEMP 98.2
[2019-08-20 12:50] LABS: Mean Platelet Volume 8.8
[2019-08-20 12:55] LABS: Platelet Count 97 k/uL (150-450)
[2019-08-20 13:04] LABS: Prothrombin Time 10.7 sec (9.0-12.0)
[2019-08-20] MEDS: ALBUMIN HUMAN 25% 50 ML in EMPTY BAG 1 BAG IVPB SCH ×3 (13:58→14:41)
[2019-08-20 14:47] VITALS: BP 158/80; PULSE 79
--- NOTE | 2019-08-20 16:07 | US ---
EXAMINATION TYPE: US paracentesis abd w/image DATE OF EXAM: 08/20/2019 COMPARISON: NONE HISTORY: Ascites. PROCEDURE: Maximal barrier technique was utilized. The skin overlying a suitable pocket of fluid was localized with ultrasound and the overlying skin was prepped and draped. Ultrasound was utilized with sterile technique. Lidocaine was used for local anesthesia and a skin sary made with a scalpel. Catheter was advanced under direct ultrasound guidance into a suitable pocket of fluid and approximately 5.6 liter s of serous fluid were removed. Catheter was withdrawn and hemostasis achieved. There is no immedia te complication; the patient is discharged in stable condition. IMPRESSION: STATUS POST ULTRASOUND GUIDED PARACENTESIS FOR PALLIATION OF ASCITES. THIS PROCEDURE WA S PERFORMED BY THE UNDERSIGNED.
== END 2019-08-20 14:55 | disposition home or self-care (01) ==
LOC: RADPROMAIN 12:19
PROVIDERS: ATTEND Internal Medicine Gastroenterology
DX: R18.8 Other ascites (principal)
CPT/HCPCS: 82565; 85049; 85610; 36415; 49083; P9047

== ENCOUNTER 2019-08-30 12:17 | Day surgery (SDC) | payer OTHER ==
[2019-08-30 12:45] VITALS: TEMP 98.1
[2019-08-30 13:06] LABS: Platelet Count 127 k/uL (150-450)
[2019-08-30 13:13] LABS: INR 0.9 (<1.2); Prothrombin Time 10.2 sec (9.0-12.0)
[2019-08-30] MEDS: ALBUMIN HUMAN 25% 50 ML in EMPTY BAG 1 BAG IVPB SCH ×3 (14:01→14:30)
[2019-08-30] MEDS ORDERED: ALBUMIN HUMAN 25% 50 ML in EMPTY BAG 1 BAG IVPB ONE (14:32)
[2019-08-30 15:02] VITALS: PULSE 80; RESP 14
[2019-08-30 15:08] VITALS: BP 118/59
--- NOTE | 2019-08-31 13:00 | US ---
Therapeutic paracentesis. DATE OF EXAM: 08/30/2019 CLINICAL HISTORY: Ascites The procedure was discussed with the patient. The risks, complications, benefits, and alternatives we re discussed and any questions were answered. Informed consent was obtained. The patient was placed s upine on the ultrasound table and prepped and draped in the usual sterile fashion. All elements of maximal barrier technique were utilized. Under ultrasound guidance, access into the right lower quadrant was obtained, via the paracentesis catheter system and direct ultrasound guidanc e. Approximately 8 liters of straw-colored fluid was removed. The patient was stable throughout the proc edure and remained stable upon discharge from Department of Radiology. IMPRESSION: Successful therapeutic paracentesis under ultrasound guidance.
== END 2019-08-30 15:15 | disposition home or self-care (01) ==
LOC: RADPROMAIN 12:17
PROVIDERS: ATTEND Internal Medicine Gastroenterology
DX: R18.8 Other ascites (principal)
CPT/HCPCS: 82565; 85049; 85610; 36415; 49083; P9047

== ENCOUNTER 2019-09-10 12:03 | Day surgery (SDC) | payer OTHER ==
[~2019-09-10 12:03] MED LIST changes: +ALBUMIN HUMAN 25% 50 ML in EMPTY BAG 1 BAG IVPB ONE; -ALPRAZolam 0.5 MG TAB PO STA; -DESMOPRESSIN ACETATE 32 MCG in SODIUM CHLORIDE 0.9% 50 ML IVPB ONE; -HYDROcodone/APAP 5-325MG 1 EACH TAB PO PRN
[2019-09-10 12:43] VITALS: RESP 16
[2019-09-10 12:50] LABS: Mean Platelet Volume 8.2; Platelet Count 138 k/uL (150-450)
[2019-09-10] MEDS: ALBUMIN HUMAN 25% 50 ML in EMPTY BAG 1 BAG IVPB SCH ×4 (13:01→14:25)
[2019-09-10 14:24] VITALS: BP 153/74; PULSE 63
--- NOTE | 2019-09-10 15:49 | US ---
EXAMINATION TYPE: US paracentesis abd w/image DATE OF EXAM: 09/10/2019 COMPARISON: NONE HISTORY: Ascites. PROCEDURE: Maximal barrier technique was utilized. The skin overlying a suitable pocket of fluid was localized with ultrasound and the overlying skin was prepped and draped. Ultrasound was utilized with sterile technique. Lidocaine was used for local anesthesia and a skin sary made with a scalpel. Catheter was advanced under direct ultrasound guidance into a suitable pocket of fluid and approximately liters of 5.4 fluid were removed. Catheter was withdrawn and hemostasis achieved. There is no immediate comp lication; the patient is discharged in stable condition. IMPRESSION: STATUS POST ULTRASOUND GUIDED PARACENTESIS FOR PALLIATION OF ASCITES. THIS PROCEDURE WA S PERFORMED BY THE UNDERSIGNED.
== END 2019-09-10 14:20 | disposition home or self-care (01) ==
LOC: RADPROMAIN 12:03
PROVIDERS: ATTEND Internal Medicine Gastroenterology
DX: R18.8 Other ascites (principal)
CPT/HCPCS: 82565; 85049; 85610; 36415; 49083; P9047

== ENCOUNTER → 2019-09-10 | Outpatient (CLI) | payer OTHER ==
[2019-09-10 12:38] LABS: Basophils % (A) 1 %; Eosinophils # (A) 0.2 k/uL (0-0.7); Eosinophils % (A) 3 %; HCT 30.8 % (34.0-46.0); HGB 10.4 gm/dL (11.4-16.0); Lymphocytes # (A) 1.9 k/uL (1.0-4.8); Lymphocytes % (A) 38 %; MCH 31.2 pg (25.0-35.0); MCHC 33.9 g/dL (31.0-37.0); MCV 92.1 fL (80.0-100.0); Mean Platelet Volume 7.9; Monocytes # (A) 0.4 k/uL (0-1.0); Monocytes % (A) 7 %; Neutrophils # (A) 2.5 k/uL (1.3-7.7); Neutrophils % (A) 49 %; Platelet Count 138 k/uL (150-450); Poikilocytosis Slight; RBC 3.35 m/uL (3.80-5.40); RDW 14.7 % (11.5-15.5)
[2019-09-10 17:48] LABS: African American GFR (CKD) 49.6 (60.0-200.0); Albumin 2.8 g/dL (3.80-4.90); Albumin/Globulin Ratio 1.17 (1.60-3.17); Anion Gap 5.3 mmol/L (4.00-12.00); BUN/Creat Ratio 13.57 Ratio (12.00-20.00); Calcium 8.4 mg/dL (8.7-10.3); Carbon Dioxide 28.7 mmol/L (21.6-31.8); Globulin 2.4 g/dL (1.6-3.3); Non-African American GFR(CKD) 42.8 (60.0-200.0); Total Bilirubin 0.7 mg/dL (0.3-1.2); Total Protein 5.2 g/dL (6.2-8.2)
== END | disposition home or self-care (01) ==
LOC: LABWHC1 11:42
PROVIDERS: ATTEND Internal Medicine Gastroenterology
DX: K74.60 Unspecified cirrhosis of liver (principal)
CPT/HCPCS: 36415; 80053; 85025; 87522

== ENCOUNTER 2019-10-03 12:25 | Day surgery (SDC) | payer OTHER ==
[2019-10-03 12:42] VITALS: RESP 20; TEMP 97.7
[2019-10-03 13:04] LABS: Mean Platelet Volume 8.6; Platelet Count 105 k/uL (150-450)
[2019-10-03 13:14] LABS: INR 1.1 (<1.2); Prothrombin Time 11.2 sec (9.0-12.0)
[2019-10-03] MEDS: ALBUMIN HUMAN 25% 50 ML in EMPTY BAG 1 BAG IVPB SCH ×3 (14:15→14:45)
[2019-10-03 14:46] VITALS: BP 160/77; PULSE 71
--- NOTE | 2019-10-03 15:59 | US ---
Therapeutic paracentesis. DATE OF EXAM: 10/03/2019 CLINICAL HISTORY: Ascites The procedure was discussed with the patient. The risks, complications, benefits, and alternatives we re discussed and any questions were answered. Informed consent was obtained. The patient was placed s upine on the ultrasound table and prepped and draped in the usual sterile fashion. All elements of maximal barrier technique were utilized. Under ultrasound guidance, access into the right lower quadrant was obtained, via the paracentesis catheter system and direct ultrasound guidanc e. Approximately 3.4 liters of straw-colored fluid was removed. The patient was stable throughout the pr ocedure and remained stable upon discharge from Department of Radiology. IMPRESSION: Successful therapeutic paracentesis under ultrasound guidance.
== END 2019-10-03 14:55 | disposition home or self-care (01) ==
LOC: RADPROMAIN 12:25
PROVIDERS: ATTEND Internal Medicine Gastroenterology
DX: R18.8 Other ascites (principal)
CPT/HCPCS: 82565; 85049; 85610; 36415; 49083; P9047

== ENCOUNTER 2019-10-26 12:20 | Day surgery (SDC) | payer OTHER ==
[2019-10-26 13:03] LABS: Mean Platelet Volume 9.3; Platelet Count 138 k/uL (150-450)
[2019-10-26 13:14] VITALS: RESP 16; TEMP 97.5
[2019-10-26 13:14] LABS: INR 1.1 (<1.2); Prothrombin Time 11.1 sec (9.0-12.0)
[2019-10-26 14:51] VITALS: BP 139/79; PULSE 65
[2019-10-26] MEDS: ALBUMIN HUMAN 25% 50 ML in EMPTY BAG 1 BAG IVPB SCH ×2 (15:04→15:05)
--- NOTE | 2019-10-26 15:20 | US ---
EXAMINATION TYPE: US paracentesis abd w/image DATE OF EXAM: 10/26/2019 COMPARISON: NONE HISTORY: Ascites. PROCEDURE: Maximal barrier technique was utilized. Hand hygiene obtained with soap and water. The skin overlyin g a suitable pocket of fluid was localized with ultrasound and the overlying skin was prepped and jaswant ped. Ultrasound was utilized with sterile technique. Lidocaine was used for local anesthesia and a s kin sary made with a scalpel. Catheter was advanced under direct ultrasound guidance into a suitable pocket of fluid and approximately 3.9 liters of serous fluid were removed. Catheter was withdrawn an d hemostasis achieved. There is no immediate complication; the patient is discharged in stable condi tion. IMPRESSION: STATUS POST ULTRASOUND GUIDED PARACENTESIS FOR PALLIATION OF ASCITES. THIS PROCEDURE WA S PERFORMED BY THE UNDERSIGNED.
== END 2019-10-26 13:55 | disposition home or self-care (01) ==
LOC: RADPROMAIN 12:20
PROVIDERS: ATTEND Internal Medicine Cardiovascular Disease
DX: R18.8 Other ascites (principal)
CPT/HCPCS: 36415; 49083; 82565; 85049; 85610

== ENCOUNTER → 2020-02-21 | Outpatient (CLI) | payer OTHER ==
[2020-02-21 15:20] LABS: Prothrombin Time 10.6 sec (9.0-12.0)
[2020-02-21 16:34] LABS: Basophils % (A) 1 %; Eosinophils # (A) 0.1 k/uL (0-0.7); Eosinophils % (A) 3 %; HCT 27.1 % (34.0-46.0); HGB 8.8 gm/dL (11.4-16.0); Hypochromasia Slight; Lymphocytes # (A) 1.2 k/uL (1.0-4.8); Lymphocytes % (A) 35 %; MCHC 32.5 g/dL (31.0-37.0); MCV 95.5 fL (80.0-100.0); Mean Platelet Volume 10.5; Monocytes # (A) 0.3 k/uL (0-1.0); Monocytes % (A) 9 %; Neutrophils # (A) 1.7 k/uL (1.3-7.7); Neutrophils % (A) 51 %; RBC 2.84 m/uL (3.80-5.40); RDW 15.7 % (11.5-15.5); WBC 3.3 k/uL (3.8-10.6)
[2020-02-21 16:38] LABS: Platelet Count 99 k/uL (150-450)
[2020-02-22 00:21] LABS: Alpha Fetoprotein, Tumor Mkr 4.4 ng/mL (0.0-7.9)
[2020-02-22 00:26] LABS: African American GFR (CKD) 45.3 (60.0-200.0); Albumin 2.6 g/dL (3.80-4.90); Albumin/Globulin Ratio 0.93 (1.60-3.17); Anion Gap 3.7 mmol/L (4.00-12.00); BUN/Creat Ratio 16.67 Ratio (12.00-20.00); Calcium 8.2 mg/dL (8.7-10.3); Carbon Dioxide 25.3 mmol/L (21.6-31.8); Globulin 2.8 g/dL (1.6-3.3); Non-African American GFR(CKD) 39.1 (60.0-200.0); Potassium 4.2 mmol/L (3.5-5.5); Total Bilirubin 0.4 mg/dL (0.3-1.2); Total Protein 5.4 g/dL (6.2-8.2)
== END | disposition home or self-care (01) ==
LOC: LABWHC1 14:07
PROVIDERS: ATTEND Physician Assistant
DX: B18.2 Chronic viral hepatitis C (principal); K74.60 Unspecified cirrhosis of liver
CPT/HCPCS: 36415; 80053; 82105; 85025; 85610; 87522

== ENCOUNTER → 2020-02-25 | Outpatient (CLI) | payer OTHER | END | disposition home or self-care (01) | LOC: LABWHC1 13:08 | PROVIDERS: ATTEND Internal Medicine Gastroenterology | DX: Z11.59 Encounter for screening for other viral diseases (principal) ==

== ENCOUNTER 2020-02-27 07:55 | Day surgery (SDC) | payer OTHER ==
[2020-02-25 12:33] VITALS: BMI 35.4
[~2020-02-27 07:55] MED LIST changes: -ALBUMIN HUMAN 25% 50 ML in EMPTY BAG 1 BAG IVPB ONE; +LACTATED RINGERS 1,000 ML IV SCH; +LIDOCAINE 1% (10MG/ML) FOR IV START INTRADERMA PRN
[2020-02-27 08:23] VITALS: TEMP 97.6
[2020-02-27] MEDS ORDERED: PROPOFOL 10 MG/ML 20 ML VIAL IV ONE (08:38)
--- NOTE | 2020-02-27 08:49 | P.PCN ---
Date of Procedure: 02/27/20 Procedure(s) Performed: BRIEF HISTORY: Patient is a 55-year-old, pleasant,, scheduled for an upper endoscopy as a part of screening for esophageal varices. She has history of cirrhosis of the liver secondary to chronic hepatitis B infection.. PROCEDURE PERFORMED: Esophagogastroduodenoscopy with biopsy. PREOPERATIVE DIAGNOSIS: Cirrhosis of the liver/screening for esophageal varices. IV sedation per anesthesia. PROCEDURE: After informed consent was obtained, the patient was brought into the endoscopy unit. IV sedation was administered by Anesthesia under continuous monitoring. Initially the Olympus GIF-140 video endoscope was inserted into the mouth. Esophagus intubated without any difficulty. It was gradually advanced into the stomach and duodenum and carefully examined. The bulb and the second part of the duodenum appeared normal. The scope at this time was withdrawn to the stomach, adequately insufflated with air, and upon careful examination, mucosa of the antrum had mild gastritis and biopsies were done from this area. The, body, cardia and the fundus appeared normal. The scope was then withdrawn into the esophagus. The GE junction was located at 39 cm from the incisors. The esophagus appeared normal. There were no erosions or ulcerations seen, there was no evidence of esophageal varices and the patient tolerated the procedure well. IMPRESSION: 1. Antral gastritis. 2. No evidence of gastric or esophageal varices. RECOMMENDATIONS: The findings of this examination were discussed with the patient as well as a family. She was advised to have a repeat screening upper endoscopy in 2-3 years to evaluate for esophageal varices. In the meantime she was advised to follow with the biopsy.
[2020-02-27 08:54] VITALS: RESP 16
[2020-02-27 09:08] VITALS: BP 156/82; PULSE 74
== END 2020-02-27 09:31 | disposition home or self-care (01) ==
LOC: ORWHC2ENDO 07:55
PROVIDERS: ATTEND Internal Medicine Gastroenterology
DX: K70.30 Alcoholic cirrhosis of liver without ascites (principal); K76.6 Portal hypertension; K29.50 Unspecified chronic gastritis without bleeding; I11.0 Hypertensive heart disease with heart failure; I50.9 Heart failure, unspecified; E07.9 Disorder of thyroid, unspecified; N28.9 Disorder of kidney and ureter, unspecified; D69.6 Thrombocytopenia, unspecified; D64.9 Anemia, unspecified; F41.9 Anxiety disorder, unspecified; F32.9 Major depressive disorder, single episode, unspecified; F17.210 Nicotine dependence, cigarettes, uncomplicated; Z79.890 Hormone replacement therapy; Z79.899 Other long term (current) drug therapy
CPT/HCPCS: 88305; 43239; J2704

== ENCOUNTER 2020-03-10 14:18 | Observation (INO) | payer OTHER ==
[2020-03-10] MEDS ORDERED: SODIUM CHLORIDE 0.9% 1,000 ML IV STA (15:02)
[2020-03-10] MEDS ORDERED: IPRATROPIUM-ALBUTEROL 3 ML NEB INHALATION STA (15:03)
--- NOTE | 2020-03-10 15:09 | ED ---
General Adult HPI - General Chief complaint: Nausea/Vomiting/Diarrhea Stated complaint: SOB, vomiting Time Seen by Provider: 03/10/20 14:46 Source: patient Mode of arrival: ambulatory Limitations: no limitations - History of Present Illness Initial comments: Patient is a 55-year-old female with history of chronic back pain, COPD, hepatitis C presenting to the emergency department with chief complaint of nausea, vomiting, shortness of breath and chest pain. Patient reports over the last week she has developed increased shortness of breath on exertion. states she is also developed some epigastric/mid sternal chest pain that is pulsating in nature. States she is using her breathing treatments at home with minimal improvement symptoms. States the wheezing is gradually worsening. She reports bilateral lower extremity edema, left more versus right. Patient also reports generalized fatigue over the last few days. He states that she looks more pale than usual. She also reports some epigastric pain with nausea and multiple episodes of nonbilious, nonbloody vomiting. Patient denies hematuria, hematochezia or melena. Denies any urinary or vaginal symptoms. States she takes hydrocodone for chronic back pain. Also reports family history of hypertension and early cardiac related . Denies one-sided weakness or paresthesias. - Related Data Home Medications Medication Instructions Recorded Confirmed ALPRAZolam [Xanax] 0.25 mg PO BID PRN 09/13/18 03/10/20 Metoprolol Tartrate 25 mg PO DAILY 09/13/18 03/10/20 HYDROcodone/APAP 10-325MG [[place] 1 tab PO BID PRN 11/21/18 03/10/20 10-325] Allopurinol [Zyloprim] 100 mg PO BID 01/12/19 03/10/20 Pantoprazole Sodium [Protonix] 40 mg PO DAILY 01/12/19 03/10/20 Folic Acid 0.4 mg PO DAILY 07/08/19 03/10/20 Magnesium Oxide 400 mg PO DAILY 07/08/19 03/10/20 Furosemide [Lasix] 40 mg PO DAILY 02/25/20 03/10/20 Ergocalciferol [Vitamin D2] 50,000 unit PO Q14D 03/10/20 03/10/20 Ferrous Sulfate [Feosol] 325 mg PO DAILY 03/10/20 03/10/20 Levothyroxine Sodium [Synthroid] 50 mcg PO DAILY 03/10/20 03/10/20 hydrALAZINE HCL [Apresoline] 10 mg PO TID 03/10/20 03/10/20 Allergies Allergy/AdvReac Type Severity Reaction Status Date / Time bupropion [From Wellbutrin] AdvReac seizure Verified 03/10/20 18:20 Review of Systems ROS Statement: Those systems with pertinent positive or pertinent negative responses have been documented in the HPI. ROS Other: All systems not noted in ROS Statement are negative. Past Medical History Past Medical History: Heart Failure, COPD, GERD/Reflux, Hypertension, Liver Disease, Renal Disease Additional Past Medical History / Comment(s): admitted to [facility] on 03/02/19 with gastroenteritis/nausea/vomiting/diarrhea/abdominal pain/ascities/UTI and had negative Cdiff. Other hx: Hep C, alcoholic liver cirrhosis, portal HTN, abdominal ascities, IGA nephropathy, thromobocytopenia, CKD stage IV, anemia, severe protein calorie malnutrition, frequent diarrhea, low back pain from an injury. History of Any Multi-Drug Resistant Organisms: None Reported Past Surgical History: Tubal Ligation Additional Past Surgical History / Comment(s): multiple Paracentesis Past Anesthesia/Blood Transfusion Reactions: No Reported Reaction Additional Past Anesthesia/Blood Transfusion Reaction / Comment(s): claustrophobia Past Psychological History: Anxiety, Depression Past Drug Use History: None Reported - Past Family History Father History Unknown: Yes Family Medical History: Cancer Additional Family Medical History / Comment(s): Unk type of cancer. Father is . Mother History Unknown: Yes Family Medical History: AFIB, Congestive Heart Failure (CHF), Deep Vein Thrombosis (DVT), Myocardial Infarction (NE), Seizure Disorder Additional Family Medical History / Comment(s): Mother had a NE at the age of 52 yrs. She is . Poss DVT. General Exam Limitations: no limitations General appearance: alert, in no apparent distress Head exam: Present: atraumatic, normocephalic, normal inspection Eye exam: Present: normal appearance, PERRL, EOMI Pupils: Present: normal accommodation ENT exam: Present: normal exam, normal oropharynx, mucous membranes moist Neck exam: Present: normal inspection, full ROM. Absent: tenderness Respiratory exam: Present: wheezes (Mild, diffuse wheezing bilaterally.). Absent: respiratory distress Cardiovascular Exam: Present: regular rate, normal rhythm, systolic murmur Extremities exam: Present: normal inspection, full ROM, normal capillary refill, other (+2 ulnar and radial pulses bilaterally. +2 dorsalis pedis and posterior tibials bilaterally.). Absent: tenderness Back exam: Present: normal inspection, full ROM. Absent: CVA tenderness (R), CVA tenderness (L) Neurological exam: Present: alert, oriented X3, normal gait Psychiatric exam: Present: normal affect, normal mood Skin exam: Present: warm, dry, intact, normal color Course Vital Signs 03/10/20 03/10/20 03/10/20 14:29 15:19 15:35 Temperature 98.0 F Pulse Rate 75 72 80 Respiratory 18 Rate Blood Pressure 164/103 O2 Sat by Pulse 100 Oximetry 03/10/20 03/10/20 17:25 18:41 Temperature 98.8 F Pulse Rate 76 80 Respiratory 17 18 Rate Blood Pressure 191/98 183/93 O2 Sat by Pulse 76 L 98 Oximetry Medical Decision Making - Medical Decision Making Patient 55-year-old female with history of chronic kidney disease, COPD, hepatitis C, hypertension presenting to the emergency department with a chief complaint of nausea, vomiting, chest pain, shortness of breath. Increased shortness of breath on exertion with atypical chest pain. Patient does report unilateral leg swelling. Patient does have elevated d-dimer. CT chest Elsie was negative for a PE. Patient was given a breathing treatment in the ED with some improvement in symptoms. Mr. Patel or negative. EKG did reveal [id number]. It appears the patient has microscopic hematuria baseline. BNP pending. She also appears to have a mild urinary tract infection with elevated leukocyte esterase and white blood cells but she is asymptomatically. Patient will be admitted for observation and serial troponins. Case discussed with . Admitting is Dr. Mason - Lab Data Result diagrams: 03/10/20 15:26 03/10/20 15: Lab Results 03/10/20 03/10/20 03/10/20 Range/Units 15: 15: 15: WBC 4.5 (3.8-10.6) k/uL RBC 3.29 L (3.80-5.40) m/uL Hgb 11.0 L (11.4-16.0) gm/dL Hct 31.5 L (34.0-46.0) % MCV 95.9 (80.0-100.0) fL MCH 33.4 (25.0-35.0) pg MCHC 34.8 (31.0-37.0) g/dL RDW 15.8 H (11.5-15.5) % Plt Count (150-450) k/uL Neutrophils % 67 % Lymphocytes % 23 % Monocytes % 6 % Eosinophils % 2 % Basophils % 1 % Neutrophils # 3.0 (1.3-7.7) k/uL Lymphocytes # 1.0 (1.0-4.8) k/uL Monocytes # 0.3 (0-1.0) k/uL Eosinophils # 0.1 (0-0.7) k/uL Basophils # 0.0 (0-0.2) k/uL Manual Slide Review Performed Poikilocytosis Slight PT 10.7 (9.0-12.0) sec INR 1.0 (<1.2) APTT 25.7 (22.0-30.0) sec D-Dimer 1.87 H (<0.60) mg/L FEU Sodium 138 (137-145) mmol/L Potassium 3.9 (3.5-5.1) mmol/L Chloride 114 H (98-107) mmol/L Carbon Dioxide 22 (22-30) mmol/L Anion Gap 2 mmol/L BUN 24 H (7-17) mg/dL Creatinine 1.54 H (0.52-1.04) mg/dL Est GFR (CKD-EPI)AfAm 44 (>60 ml/min/1.73 sqM) Est GFR (CKD-EPI)NonAf 38 (>60 ml/min/1.73 sqM) Glucose 94 (74-99) mg/dL Plasma Lactic Acid Luis E (0.7-2.0) mmol/L Calcium 8.0 L (8.4-10.2) mg/dL Total Bilirubin 0.5 (0.2-1.3) mg/dL AST 31 (14-36) U/L ALT 10 (4-34) U/L Alkaline Phosphatase 116 (38-126) U/L Troponin I (0.000-0.034) ng/mL NT-Pro-B Natriuret Pep pg/mL Total Protein 6.2 L (6.3-8.2) g/dL Albumin 2.6 L (3.5-5.0) g/dL Urine Color Urine Appearance (Clear) Urine pH (5.0-8.0) Ur Specific [place] (1.001-1.035) Urine Protein (Negative) Urine Glucose (UA) (Negative) Urine Ketones (Negative) Urine Blood (Negative) Urine Nitrite (Negative) Urine Bilirubin (Negative) Urine Urobilinogen (<2.0) mg/dL Ur Leukocyte Esterase (Negative) Urine RBC (0-5) /hpf Urine WBC (0-5) /hpf Ur Squamous Epith Cells (0-4) /hpf Hyaline Casts (0-2) /lpf Urine HCG, Qual (Not Detectd) 03/10/20 03/10/20 03/10/20 Range/Units 15:26 15:26 16:49 WBC (3.8-10.6) k/uL RBC (3.80-5.40) m/uL Hgb (11.4-16.0) gm/dL Hct (34.0-46.0) % MCV (80.0-100.0) fL MCH (25.0-35.0) pg MCHC (31.0-37.0) g/dL RDW (11.5-15.5) % Plt Count (150-450) k/uL Neutrophils % % Lymphocytes % % Monocytes % % Eosinophils % % Basophils % % Neutrophils # (1.3-7.7) k/uL Lymphocytes # (1.0-4.8) k/uL Monocytes # (0-1.0) k/uL Eosinophils # (0-0.7) k/uL Basophils # (0-0.2) k/uL Manual Slide Review Poikilocytosis PT (9.0-12.0) sec INR (<1.2) APTT (22.0-30.0) sec D-Dimer (<0.60) mg/L FEU Sodium (137-145) mmol/L Potassium (3.5-5.1) mmol/L Chloride (98-107) mmol/L Carbon Dioxide (22-30) mmol/L Anion Gap mmol/L BUN (7-17) mg/dL Creatinine (0.52-1.04) mg/dL Est GFR (CKD-EPI)AfAm (>60 ml/min/1.73 sqM) Est GFR (CKD-EPI)NonAf (>60 ml/min/1.73 sqM) Glucose (74-99) mg/dL Plasma Lactic Acid Luis E 0.8 (0.7-2.0) mmol/L Calcium (8.4-10.2) mg/dL Total Bilirubin (0.2-1.3) mg/dL AST (14-36) U/L ALT (4-34) U/L Alkaline Phosphatase (38-126) U/L Troponin I <0.012 (0.000-0.034) ng/mL NT-Pro-B Natriuret Pep pg/mL Total Protein (6.3-8.2) g/dL Albumin (3.5-5.0) g/dL Urine Color Yellow Urine Appearance Clear (Clear) Urine pH 7.0 (5.0-8.0) Ur Specific [place] 1.009 (1.001-1.035) Urine Protein 3+ H (Negative) Urine Glucose (UA) Negative (Negative) Urine Ketones Negative (Negative) Urine Blood Moderate H (Negative) Urine Nitrite Negative (Negative) Urine Bilirubin Negative (Negative) Urine Urobilinogen <2.0 (<2.0) mg/dL Ur Leukocyte Esterase Small H (Negative) Urine RBC 65 H (0-5) /hpf Urine WBC 20 H (0-5) /hpf Ur Squamous Epith Cells 1 (0-4) /hpf Hyaline Casts 1 (0-2) /lpf Urine HCG, Qual (Not Detectd) 03/10/20 03/10/20 Range/Units 16:49 17:28 WBC (3.8-10.6) k/uL RBC (3.80-5.40) m/uL Hgb (11.4-16.0) gm/dL Hct (34.0-46.0) % MCV (80.0-100.0) fL MCH (25.0-35.0) pg MCHC (31.0-37.0) g/dL RDW (11.5-15.5) % Plt Count (150-450) k/uL Neutrophils % % Lymphocytes % % Monocytes % % Eosinophils % % Basophils % % Neutrophils # (1.3-7.7) k/uL Lymphocytes # (1.0-4.8) k/uL Monocytes # (0-1.0) k/uL Eosinophils # (0-0.7) k/uL Basophils # (0-0.2) k/uL Manual Slide Review Poikilocytosis PT (9.0-12.0) sec INR (<1.2) APTT (22.0-30.0) sec D-Dimer (<0.60) mg/L FEU Sodium (137-145) mmol/L Potassium (3.5-5.1) mmol/L Chloride (98-107) mmol/L Carbon Dioxide (22-30) mmol/L Anion Gap mmol/L BUN (7-17) mg/dL Creatinine (0.52-1.04) mg/dL Est GFR (CKD-EPI)AfAm (>60 ml/min/1.73 sqM) Est GFR (CKD-EPI)NonAf (>60 ml/min/1.73 sqM) Glucose (74-99) mg/dL Plasma Lactic Acid Luis E (0.7-2.0) mmol/L Calcium (8.4-10.2) mg/dL Total Bilirubin (0.2-1.3) mg/dL AST (14-36) U/L ALT (4-34) U/L Alkaline Phosphatase (38-126) U/L Troponin I (0.000-0.034) ng/mL NT-Pro-B Natriuret Pep 3290 pg/mL Total Protein (6.3-8.2) g/dL Albumin (3.5-5.0) g/dL Urine Color Urine Appearance (Clear) Urine pH (5.0-8.0) Ur Specific [place] (1.001-1.035) Urine Protein (Negative) Urine Glucose (UA) (Negative) Urine Ketones (Negative) Urine Blood (Negative) Urine Nitrite (Negative) Urine Bilirubin (Negative) Urine Urobilinogen (<2.0) mg/dL Ur Leukocyte Esterase (Negative) Urine RBC (0-5) /hpf Urine WBC (0-5) /hpf Ur Squamous Epith Cells (0-4) /hpf Hyaline Casts (0-2) /lpf Urine HCG, Qual Not Detected (Not Detectd) Disposition Clinical Impression: Shortness of breath, Atypical chest pain Disposition: ADMITTED IP TO THIS [facility] Condition: Stable Additional Instructions: Patient will be admitted Is patient prescribed a controlled substance at d/c from ED?: No Referrals: Kel Mason MD [Primary Care Provider] - 1-2 days Time of Disposition: 18:09
[2020-03-10 15:40] LABS: Basophils % (A) 1 %; Eosinophils # (A) 0.1 k/uL (0-0.7); Eosinophils % (A) 2 %; HCT 31.5 % (34.0-46.0); Lymphocytes % (A) 23 %; MCH 33.4 pg (25.0-35.0); MCHC 34.8 g/dL (31.0-37.0); MCV 95.9 fL (80.0-100.0); Mean Platelet Volume 13.1; Monocytes # (A) 0.3 k/uL (0-1.0); Monocytes % (A) 6 %; Neutrophils % (A) 67 %; Poikilocytosis Slight; RBC 3.29 m/uL (3.80-5.40); RDW 15.8 % (11.5-15.5); WBC 4.5 k/uL (3.8-10.6)
[2020-03-10] MEDS ORDERED: HYDROcodone/APAP 5-325MG 1 EACH TAB PO STA (15:51)
[2020-03-10 15:56] LABS: Albumin 2.6 g/dL (3.5-5.0); Potassium 3.9 mmol/L (3.5-5.1); Total Bilirubin 0.5 mg/dL (0.2-1.3); Total Protein 6.2 g/dL (6.3-8.2)
[2020-03-10 15:58] LABS: Partial Thromboplastin Time 25.7 sec (22.0-30.0); Prothrombin Time 10.7 sec (9.0-12.0)
[2020-03-10 16:16] LABS: D-Dimer 1.87 mg/L FEU (<0.60)
--- NOTE | 2020-03-10 16:56 | XR ---
EXAMINATION TYPE: XR chest 2V DATE OF EXAM: 03/10/2020 COMPARISON: CTA chest same day. Prior chest x-ray August 09, 2019. HISTORY: Cough and shortness of breath. TECHNIQUE: Frontal and lateral views of the chest are obtained. FINDINGS: Overlying EKG leads are present. Diminished inspiration on current study. There is no focal air space opacity, pleural effusion, or pneumothorax seen. The cardiac silhouette size remains with in normal limits. The osseous structures are intact. IMPRESSION: No suspicious new acute pulmonary process. No significant change from prior x-ray.
[2020-03-10 16:57] LABS: Appearance,Urine Clear (Clear); Bilirubin,Urine Negative (Negative); Blood,Urine Moderate (Negative); Color,Urine Yellow; Glucose,Urine (UA) Negative (Negative); Hyaline Casts,Urine 1 /lpf (0-2); Ketones,Urine Negative (Negative); Leukocyte Esterase,Urine Small (Negative); Nitrite,Urine Negative (Negative); Protein,Urine 3+ (Negative); RBC,Urine 65 /hpf (0-5); Specific Gravity,Urine 1.009 (1.001-1.035); Squamous Epithelial Cell,Urine 1 /hpf (0-4); Urobilinogen,Urine <2.0 mg/dL (<2.0); WBC,Urine 20 /hpf (0-5)
--- NOTE | 2020-03-10 17:00 | CT ---
EXAMINATION TYPE: CT chest angio for PE DATE OF EXAM: 03/10/2020 COMPARISON: Same day chest x-ray. HISTORY: Elevated d-dimer. Chest heaviness and vomiting. CT DLP: 400.9 mGycm. Automated Exposure Control for Dose Reduction was Utilized. CONTRAST: CTA scan of the thorax is performed with IV Contrast, patient injected with 80 mL of Isovue 370, pulm onary embolism protocol. MIP Images are created on CT scanner and reviewed. FINDINGS: LUNGS: The lungs are grossly clear, there is no concerning parenchymal mass or nodule identified. N o suspicious focal consolidation. There is no pleural effusion or pneumothorax seen bilaterally. The tracheobronchial tree is patent. MEDIASTINUM: There is suboptimal bolus with most dense contrast in SVC and majority of contrast in th e aorta and left heart system. No aortic aneurysm or dissection. Bovine type arch which is normal best iant. Exam is nondiagnostic for pulmonary embolism. There are no greater than 1 cm hilar or mediasti nal lymph nodes. Trace pericardial effusion is seen. No cardiomegaly. OTHER: Lobulated liver with perihepatic and perisplenic ascites correlates with patient's known histo ry of cirrhosis. Heterogeneity with splenomegaly is noted. IMPRESSION: Nondiagnostic for acute pulmonary embolism. No suspicious acute pulmonary process.
[2020-03-10] MEDS ORDERED: MORPHINE SULFATE 4 MG/ML SYRINGE IVP STA (17:11)
[2020-03-10] MEDS ORDERED: MORPHINE SULFATE 4 MG/ML SYRINGE IV PRN (18:06)
[2020-03-10] MEDS ORDERED: NALOXONE 0.4 MG/ML 1 ML VIAL IV PRN (18:06)
[2020-03-10] MEDS ORDERED: LORazepam 2 MG/ML INJ IV PRN (18:06)
[2020-03-10] MEDS: oxyCODONE-APAP 5-325MG 1 EACH TAB PO PRN (18:46)
[2020-03-10] MEDS: SODIUM CHLORIDE 0.9% 1,000 ML IV SCH (18:48)
[2020-03-10] MEDS ORDERED: hydrALAZINE HCL 20 MG/ML 1 ML VIAL IVP STA (19:31)
[2020-03-10] MEDS: HYDROmorphone 0.5 MG/0.5 ML SYRINGE IVP PRN (22:24)
[2020-03-11] MEDS: oxyCODONE-APAP 5-325MG 1 EACH TAB PO PRN ×2 (00:12→05:03)
[2020-03-11] MEDS: HYDROmorphone 0.5 MG/0.5 ML SYRINGE IVP PRN ×5 (03:31→23:24)
[2020-03-11] MEDS: FERROUS SULFATE 325 MG TAB PO SCH (08:29)
[2020-03-11] MEDS: FOLIC ACID 1 MG TAB PO SCH (08:29)
[2020-03-11] MEDS: PANTOPRAZOLE 40 MG TABLET PO SCH (08:29)
[2020-03-11] MEDS: amLODIPine 10 MG TAB PO SCH (08:29)
[2020-03-11] MEDS: MAGNESIUM OXIDE 400 MG TAB PO SCH (08:29)
[2020-03-11] MEDS: allopurinoL 100 MG TAB PO SCH ×2 (08:29→20:28)
[2020-03-11] MEDS: FUROSEMIDE 40 MG TAB PO SCH (08:29)
[2020-03-11] MEDS: hydrALAZINE HCL 25 MG TAB PO SCH ×3 (08:29→20:28)
[2020-03-11] MEDS: METOPROLOL TARTRATE 25 MG TAB PO SCH (08:29)
--- NOTE | 2020-03-11 08:45 | US ---
EXAMINATION TYPE: US venous doppler duplex LE DATE OF EXAM: 03/11/2020 7:51 AM COMPARISON: US CLINICAL HISTORY: leg swelling, elevated D-Dimer. SIDE PERFORMED: Bilateral TECHNIQUE: The lower extremity deep venous system is examined utilizing real time linear array sonog radha with graded compression, doppler sonography and color-flow sonography. VESSELS IMAGED: External Iliac Vein (EIV) Common Femoral Vein Deep Femoral Vein Greater Saphenous Vein * Femoral Vein Popliteal Vein Small Saphenous Vein * Proximal Calf Veins (* superficial vessels) Right Leg: Negative for DVT Left Leg: Negative for DVT Complex fluid collection right pop fossa measures 4.2 x 1.9 x 1.9cm. IMPRESSION: 1. Bilateral lower extremity ultrasound negative for deep venous thrombosis. 2. Right popliteal cyst
[2020-03-11] MEDS ORDERED: hydrALAZINE HCL 10 MG TAB PO SCH (09:00)
[2020-03-11] MEDS: LEVOTHYROXINE 50 MCG TAB PO SCH (09:52)
[2020-03-11] MEDS: SODIUM CHLORIDE 0.9% 1,000 ML IV SCH ×2 (09:55→23:29)
[2020-03-11] MEDS: HYDROcodone/APAP 10-325MG 1 EACH TAB PO PRN (12:16)
--- NOTE | 2020-03-11 12:49 | CONS ---
CONSULTATION CHIEF COMPLAINT: Chest pain and shortness of breath. This is a 55-year-old lady with history of hypertension, alcoholic liver disease with cirrhosis, hepatitis C, chronic renal insufficiency, anemia, chronic smoking, who presented to the hospital complaining of not feeling well. An episode of diarrhea and shortness of breath while at a restaurant. She came in and got admitted with the same symptoms and at the time of my evaluation this morning, she appears comfortable at rest. Shortness of breath has improved and she does not have any chest pain. An EKG shows normal sinus rhythm, normal axis, normal intervals. She has had 3 sets of troponins that are all within normal limits. Has elevated BNP. There is not related to congestive heart failure. His elevated D-dimer and went on to have a CTA that was negative for pulmonary embolism. She has ascites. A chest x-ray did not show pulmonary congestion. The patient's clinical presentation could be due to multiple etiological possibilities including underlying cirrhosis, COPD, uncontrolled hypertension. This morning her blood pressure is elevated at 180/80. LABS: Show that the hemoglobin is 11, platelet count is low and BUN and creatinine are elevated at 24 and 1.5. PAST MEDICAL HISTORY: Significant for hypertension, alcoholic liver disease, hepatitis C, hypothyroidism, cirrhosis liver. MEDICATIONS: Include hydralazine 10 t.i.d., Protonix 40 q. daily, metoprolol 25 daily, magnesium, Synthroid, [place], Lasix, folic acid, iron, Zyloprim, and Xanax. The patient is allergic to WELLBUTRIN. FAMILY HISTORY: Negative for premature coronary artery disease. SOCIAL HISTORY: Significant for smoking and EtOH abuse. Denies any drug abuse. REVIEW OF SYSTEMS: HEENT: Unremarkable. CARDIAC: As described above. RESPIRATORY: As described above. GI: As described above. GENITOURINARY: Negative. ALLERGY/IMMUNOLOGY: Negative. SKIN: Negative. ENDOCRINE: Negative. ENDOCRINE: Negative. DERM: Negative. CONSTITUTIONAL: Negative. ONCOLOGICAL: Negative. Rest of the system review is not relevant. PHYSICAL EXAM: Patient is afebrile. Heart rate is 80 beats per minute. Blood pressure is 180/82, respiratory rate 18. Chest exam reveals diminished air entry at the bases. Heart exam reveals first and second heart sounds. No gallop. Has a systolic murmur at the apex. Abdomen is soft. Exam of extremities did not reveal any edema. Peripheral pulses are felt. Abdomen appears distended. LABS: As described above. EKG is normal. Chest exam stated there is bilateral rhonchi. ASSESSMENT: 1. Shortness of breath secondary to underlying COPD. 2. Chest pain, sharp, atypical. 3. History of cirrhosis, liver with ascites. 4. Uncontrolled hypertension. PLAN: I am going to obtain a 2D echo on her to evaluate her LV function and wall motion. We need to control her blood pressure better. Once that is done, she can have a stress test either during this hospitalization or she can be discharged home this past the moment and an outpatient stress test be obtained. MMODL / IJN: [id number] /
--- NOTE | 2020-03-11 18:48 | P.HPIM ---
History of Present Illness H&P Date: 03/11/20 Heidi Smith, is a 55-year-old female who presented to [facility] emergency room with multiple medical problems including chest discomfort, and shortness of breath, patient has a known history of liver cirrhosis with ascites requiring occasional paracentesis followed by Dr. Mcdaniel. She was having bilateral lower extremity swelling, d-dimer was elevated in the emergency room, computed tomography scan of the chest was done in the ER and did not reveal any convincing evidence of pulmonary embolism, she was admitted to observation unit for further evaluation and treatment, cardiology consultation was requested, patient underwent bilateral lower extremity Doppler that was nega tive for DVT, patient was seen and examined on the observation unit, she was still having some chest discomfort and shortness of breath, she will be admitted to medical floor pulmonary consultation and gastroenterology consultation were added. On review of system patient is alert and oriented 3 she denies any fever or chills she is having some chest discomfort and shortness of breath no cough no nausea or vomiting she has some abdominal discomfort no abdominal pain no diarrhea no burning was urination no frequency or urgency and no hematuria Past Medical History Past Medical History: Heart Failure, COPD, GERD/Reflux, Hypertension, Liver Disease, Renal Disease Additional Past Medical History / Comment(s): admitted to [facility] [place] on 03/02/19 with gastroenteritis/nausea/vomiting/diarrhea/abdominal pain/ascities/UTI and had negative Cdiff. Other hx: Hep C, alcoholic liver cirrhosis, portal HTN, abdominal ascities, IGA nephropathy, thromobocytopenia, CKD stage IV, anemia, severe protein calorie malnutrition, frequent diarrhea, low back pain from an injury. History of Any Multi-Drug Resistant Organisms: None Reported Past Surgical History: Tubal Ligation Additional Past Surgical History / Comment(s): multiple Paracentesis Past Anesthesia/Blood Transfusion Reactions: No Reported Reaction Additional Past Anesthesia/Blood Transfusion Reaction / Comment(s): claustrophobia Past Psychological History: Anxiety, Depression Additional Psychological History / Comment(s): Pt resides with significant other in an apartment. She does not drive. She is otherwise independent. Smoking Status: Current every day smoker Past Alcohol Use History: None Reported Additional Past Alcohol Use History / Comment(s): Started smoking at age 12, used to smoke 1 ppd but has cut down to 1/2 ppd. Pt quit drinking July 2018, used to drink rum & beer-8 beers daily & liquor also daily Past Drug Use History: None Reported - Past Family History Father History Unknown: Yes Family Medical History: Cancer Additional Family Medical History / Comment(s): Unk type of cancer. Father is . Mother History Unknown: Yes Family Medical History: AFIB, Congestive Heart Failure (CHF), Deep Vein Thrombosis (DVT), Myocardial Infarction (NC), Seizure Disorder Additional Family Medical History / Comment(s): Mother had a NC at the age of 52 yrs. She is . Poss DVT. Medications and Allergies Home Medications Medication Instructions Recorded Confirmed Type ALPRAZolam [Xanax] 0.25 mg PO BID PRN 09/13/18 03/10/20 History Metoprolol Tartrate 25 mg PO DAILY 09/13/18 03/10/20 History HYDROcodone/APAP 10-325MG [[place] 1 tab PO BID PRN 11/21/18 03/10/20 History 10-325] Allopurinol [Zyloprim] 100 mg PO BID 01/12/19 03/10/20 History Pantoprazole Sodium [Protonix] 40 mg PO DAILY 01/12/19 03/10/20 History Folic Acid 0.4 mg PO DAILY 07/08/19 03/10/20 History Magnesium Oxide 400 mg PO DAILY 07/08/19 03/10/20 History Furosemide [Lasix] 40 mg PO DAILY 02/25/20 03/10/20 History Ergocalciferol [Vitamin D2] 50,000 unit PO Q14D 03/10/20 03/10/20 History Ferrous Sulfate [Feosol] 325 mg PO DAILY 03/10/20 03/10/20 History Levothyroxine Sodium [Synthroid] 50 mcg PO DAILY 03/10/20 03/10/20 History hydrALAZINE HCL [Apresoline] 10 mg PO TID 03/10/20 03/10/20 History Allergies Allergy/AdvReac Type Severity Reaction Status Date / Time bupropion [From Wellbutrin] AdvReac seizure Verified 03/10/20 18:20 Physical Exam Vitals: Vital Signs Temp Pulse Pulse Resp BP BP Pulse Ox 03/11/20 04:40 97.8 F 81 17 181/81 97 03/10/20 23:45 79 16 154/76 99 03/10/20 20:50 98.4 F 85 17 162/77 98 03/10/20 20:08 18 03/10/20 20:03 164/88 03/10/20 19:38 75 17 197/99 99 03/10/20 18:41 98.8 F 80 18 183/93 98 03/10/20 17:25 76 17 191/98 76 L 03/10/20 15:35 80 03/10/20 15:19 72 03/10/20 14:29 98.0 F 75 18 164/103 100 Intake and Output 03/10/20 03/11/20 03/11/20 22:59 06:59 14:59 Intake Total 75 Balance 75 Intake: Intake, IV Titration 75 Amount Sodium Chloride 0.9% 1, 75 000 ml @ 75 mls/hr IV . Q24K22C COUNTS INCLUDE 234 BEDS AT THE [facility] Rx#:[id number] Other: # Voids 1 1 Weight 89.811 kg 90.356 kg In general patient is alert and oriented 3 in no apparent distress HEENT head normocephalic and atraumatic Neck is supple no JVD no goiter no lymphadenopathy Chest exam reveals a few scattered rhonchi no wheezing Cardiac exam reveals regular heart sounds no murmurs Abdomen is soft nontender no organomegaly was normal bowel sounds Extremity exam reveals 2+ edema no cyanosis or clubbing Neurological examination reveals no gross focal deficit Results CBC & Chem 7: 03/10/20 15:26 03/10/20 15:26 Labs: Abnormal Lab Results - Last 24 Hours (Table) 03/10/20 03/10/20 03/10/20 Range/Units 15:26 15:26 15:26 RBC 3.29 L (3.80-5.40) m/uL Hgb 11.0 L (11.4-16.0) gm/dL Hct 31.5 L (34.0-46.0) % RDW 15.8 H (11.5-15.5) % D-Dimer 1.87 H (<0.60) mg/L FEU Chloride 114 H (98-107) mmol/L BUN 24 H (7-17) mg/dL Creatinine 1.54 H (0.52-1.04) mg/dL Calcium 8.0 L (8.4-10.2) mg/dL Total Protein 6.2 L (6.3-8.2) g/dL Albumin 2.6 L (3.5-5.0) g/dL Urine Protein (Negative) Urine Blood (Negative) Ur Leukocyte Esterase (Negative) Urine RBC (0-5) /hpf Urine WBC (0-5) /hpf 03/10/20 Range/Units 16:49 RBC (3.80-5.40) m/uL Hgb (11.4-16.0) gm/dL Hct (34.0-46.0) % RDW (11.5-15.5) % D-Dimer (<0.60) mg/L FEU Chloride (98-107) mmol/L BUN (7-17) mg/dL Creatinine (0.52-1.04) mg/dL Calcium (8.4-10.2) mg/dL Total Protein (6.3-8.2) g/dL Albumin (3.5-5.0) g/dL Urine Protein 3+ H (Negative) Urine Blood Moderate H (Negative) Ur Leukocyte Esterase Small H (Negative) Urine RBC 65 H (0-5) /hpf Urine WBC 20 H (0-5) /hpf Microbiology - Last 24 Hours (Table) 03/10/20 16:49 Urine Culture - Preliminary Urine,Voided Thrombosis Risk Factor Assmnt - Choose All That Apply Any of the Below Risk Factors Present?: Yes Each Factor Represents 1 point: Abnormal pulmonary function (COPD), Age 41-60 years, Obesity (BMI >25) Other Risk Factors: No Other congenital or acquired thrombophilia - If yes, enter type in comment: No Thrombosis Risk Factor Assessment Total Risk Factor Score: 3 Thrombosis Risk Factor Assessment Level: Moderate Risk Assessment and Plan Plan: 1. Episodes of chest discomfort patient is admitted to telemetry floor cardiol ogy consultation was requested, troponin level so far negative 2. Underlying history of liver cirrhosis followed by gastroenterology Dr. Mcdaniel. Will request consult due to her abdominal discomfort, there is some ascites but not in any significant amount at this time 3. Underlying history of chronic kidney disease, stage III 4. Underlying history of hypertension blood pressure not well controlled on presentation 5. Underlying history of anemia maintained on iron supplements 6. Shortness of breath cause is unclear pulmonary consultation was requested 7. Evidence of urinary tract infection patient was started on IV Rocephin At this time medications reviewed and reordered For DVT prophylaxis we will use Lovenox Will follow closely during this admission
[2020-03-11] MEDS: ALPRAZolam 0.25 MG TAB PO PRN (20:28)
[2020-03-12] MEDS: HYDROcodone/APAP 10-325MG 1 EACH TAB PO PRN (02:15)
[2020-03-12] MEDS: HYDROmorphone 0.5 MG/0.5 ML SYRINGE IVP PRN (04:22)
[2020-03-12 04:33] VITALS: RESP 16
[2020-03-12] MEDS: PANTOPRAZOLE 40 MG TABLET PO SCH (06:15)
[2020-03-12] MEDS: amLODIPine 10 MG TAB PO SCH (06:15)
[2020-03-12] MEDS: hydrALAZINE HCL 25 MG TAB PO SCH (06:15)
[2020-03-12] MEDS: METOPROLOL TARTRATE 25 MG TAB PO SCH (06:15)
[2020-03-12] MEDS: LEVOTHYROXINE 50 MCG TAB PO SCH (06:16)
[2020-03-12] MEDS: FUROSEMIDE 40 MG TAB PO SCH (06:16)
[2020-03-12] MEDS: HYDROcodone/APAP 5-325MG 1 EACH TAB PO PRN ×2 (08:19→12:41)
[2020-03-12] MEDS: FERROUS SULFATE 325 MG TAB PO SCH (08:19)
[2020-03-12] MEDS: ALPRAZolam 0.25 MG TAB PO PRN (08:19)
[2020-03-12] MEDS: FOLIC ACID 1 MG TAB PO SCH (08:19)
[2020-03-12] MEDS: allopurinoL 100 MG TAB PO SCH (08:19)
[2020-03-12] MEDS: MAGNESIUM OXIDE 400 MG TAB PO SCH (08:20)
[2020-03-12 08:59] VITALS: BP 148/93; PULSE 66; TEMP 97.8
--- NOTE | 2020-03-12 09:29 | P.PN ---
Subjective This is a pleasant 55-year-old female past medical history significant for hypertension, alcoholic liver disease with cirrhosis, hepatitis C, chronic renal insufficiency, anemia and chronic nicotine dependence. She is seen and examined resting comfortably lying flat in bed in no acute distress. She complains of abdominal discomfort as well as low back pain. At rest her breathing is stable. She denies symptoms of chest pain, dizziness or palpitations. She is currently being treated for urinary tract infection. Blood pressure 148/93 heart rate 66 afebrile maintaining oxygen saturation on room air. Currently maintained on amlodipine 10 mg daily, Lasix 40 mg daily, hydralazine 25 mg 3 times a day and metoprolol 25 mg daily. Echocardiogram has been obtained and will be reviewed. GENERAL: Well-appearing, well-nourished and in no acute distress. NECK: Supple without JVD or thyromegaly. LUNGS: Breath sounds clear to auscultation bilaterally. Respiration equal and unlabored. No wheezes, rales or rhonchi. HEART: Regular rate and rhythm without murmurs, rubs or gallops. S1 and S2 heard. EXTREMITIES: Normal range of motion, no edema. No clubbing or cyanosis. Peripheral pulses intact. ASSESSMENT Shortness of breath secondary to underlying COPD Chest pain, atypical. An acute coronary event has been ruled out Hypertension, uncontrolled Urinary tract infection History of cirrhosis with ascites PLAN Blood pressures improved on current regimen. Ongoing medical management and treatment of ascites and urinary tract infection. We will pursue stress testing as an outpatient in the office in the next one to 2 weeks. Nurse Practitioner note has been reviewed, I agree with a documented findings and plan of care. Patient was seen and examined. Objective - Vital Signs Vital signs: Vital Signs Temp 97.8 F 03/12/20 08:00 Pulse 66 03/12/20 08:00 Resp 16 03/12/20 08:00 BP 148/93 03/12/20 08:00 Pulse Ox 94 L 03/12/20 08:00 Intake & Output 03/11/20 03/12/20 03/12/20 18:59 06:59 18:59 Intake Total 840 Balance 840 Intake: Oral 840 Other: # Voids 1 1 - Labs CBC & Chem 7: 03/10/20 15:26 03/10/20 15:26 Labs: Microbiology - Last 24 Hours (Table) 03/10/20 16:49 Urine Culture - Final Urine,Voided
[2020-03-12 10:44] LABS: HCT 28.6 % (34.0-46.0); HGB 9.7 gm/dL (11.4-16.0); Hypochromasia Slight; MCH 32.8 pg (25.0-35.0); MCV 96.5 fL (80.0-100.0); Mean Platelet Volume 10.6; Poikilocytosis Slight; RBC 2.97 m/uL (3.80-5.40); RDW 15.7 % (11.5-15.5); WBC 4.5 k/uL (3.8-10.6)
--- NOTE | 2020-03-12 11:00 | ECHOF ---
Referral Reason:chest pain MEASUREMENTS -------- HEIGHT: 160.0 cm WEIGHT: 90.3 kg BP: 181/81 RVIDd: 3.6 cm (< 3.3) IVSd: 1.6 cm (0.6 - 1.1) LVIDd: 4.6 cm (3.9 - 5.3) LVPWd: 1.3 cm (0.6 - 1.1) IVSs: 2.0 cm LVIDs: 2.5 cm LVPWs: 1.9 cm LAESV Index (A-L): 29.97 ml/m Ao Diam: 3.2 cm (2.0 - 3.7) AV Cusp: 2.3 cm (1.5 - 2.6) MV EXCURSION: 12.842 mm (> 18.000) MV EF SLOPE: 80 mm/s (70 - 150) EPSS: 0.5 cm MV E Misbah: 0.73 m/s MV DecT: 204 ms MV A Misbah: 0.66 m/s MV E/A Ratio: 1.11 RAP: 5.00 mmHg RVSP: 48.91 mmHg FINDINGS -------- Sinus rhythm. This was a technically good study. The left ventricular size is normal. There is moderate concentric left ventricular hypertrophy. O verall left ventricular systolic function is normal with, an EF between 55 - 60 %. The diastolic fi lling pattern is normal for the age of the patient 10.29. The right ventricle is moderately enlarged. LA is midly dilated 29-33ml/m2. The right atrium is mildly enlarged. Interatrial and interventricular septum intact. The aortic valve is trileaflet and appears structurally normal. There is no evidence of aortic regu rgitation. There is no evidence of aortic stenosis. Mild mitral regurgitation is present. [id number] tricuspid regurgitation present. There is mild to moderate pulmonary hypertension. The right ventricular systolic pressure, as measured by Doppler, is 48.91mmHg. There is no pulmonic regurgitation present. The aortic root size is normal. IVC Not well visulized. There is no pericardial effusion. CONCLUSIONS -------- 1. Sinus rhythm. 2. This was a technically good study. 3. The left ventricular size is normal. 4. There is moderate concentric left ventricular hypertrophy. 5. Overall left ventricular systolic function is normal with, an EF between 55 - 60 %. 6. The diastolic filling pattern is normal for the age of the patient 10.29 7. The right ventricle is moderately enlarged. 8. LA is midly dilated 29-33ml/m2. 9. The right atrium is mildly enlarged. 10. Interatrial and interventricular septum intact. 11. The aortic valve is trileaflet and appears structurally normal. 12. There is no evidence of aortic regurgitation. 13. There is no evidence of aortic stenosis. 14. Mild mitral regurgitation is present. 15. [id number] tricuspid regurgitation present. 16. There is mild to moderate pulmonary hypertension. 17. The right ventricular systolic pressure, as measured by Doppler, is 48.91mmHg. 18. There is no pulmonic regurgitation present. 19. The aortic root size is normal. 20. IVC Not well visulized. 21. There is no pericardial effusion. REMELT FURNACE EXPEDITER: Birdie Howell RDCS
--- NOTE | 2020-03-12 11:46 | US ---
EXAMINATION TYPE: US abdomen limited DATE OF EXAM: 03/12/2020 COMPARISON: NONE CLINICAL HISTORY: assess for fluid pocket. Ascites, history of cirrhosis and prior paracentesis Mild fluid left left lower quadrant and bilateral upper quadrants, mild to moderate fluid right lower quadrant on images. IMPRESSION: As above.
--- NOTE | 2020-03-12 12:59 | CONS ---
CONSULTATION PULMONARY/CRITICAL CARE CONSULTATION: DATE OF CONSULTATION: 03/12/2020 This is a 55-year-old female who we were asked to see because of chest pain and back pain. She also has epigastric discomfort. A 55-year-old female with a history of chronic back pain. Apparently, COPD, although she does not see a ripsaw operator, hepatitis C, and liver cirrhosis who presents with complaints of epigastric discomfort, some nausea, vomiting, and chest and back pain. She really denies any shortness of breath per se. She denies any fever, chills. She denies any cough or wheezing. She states that her symptoms that she came in with on March 10 have completely dissipated. The patient likely does have some underlying COPD. She has never been formally diagnosed or had pulmonary function tests according to her. She apparently does use inhalers at home occasionally. She has not use anything on a chronic or ongoing basis. Again, I do not believe we have seen her in the office. Her primary care physician is Dr. Mason. Currently, she is being evaluated primarily by Cardiology. Again, our role in her current issues are minimal because she is really not having any lung issues. I suspect she does have a history of underlying COPD based on her smoking history. MEDICATIONS: Reviewed. She is on Xanax, metoprolol, [place], Zyloprim, Protonix, folic acid, magnesium oxide, Lasix, vitamin D2, ferrous sulfate, levothyroxine, and hydralazine. She is also on a couple of inhalers, but she does not remember the name. One of them may be albuterol. ALLERGIES: WELLBUTRIN. MEDICAL HISTORY: CHF, "COPD", GERD, hypertension, chronic liver disease and liver cirrhosis, chronic kidney disease, gastroenteritis, UTI, hepatitis C, alcoholic cirrhosis, portal hypertension, abdominal ascites, IgA nephropathy, thrombocytopenia, stage 4 chronic kidney disease, anemia, protein calorie malnutrition, and frequent diarrhea. SURGICAL HISTORY: Includes tubal ligation and multiple paracentesis abdominis. SOCIAL HISTORY: Positive for heavy tobacco use. She was used to be a heavy drinker, but does not drink currently. FAMILY HISTORY: Positive for father with unknown cancer and mother with a history of atrial fibrillation, CHF, deep venous thrombosis, myocardial infarction, and seizure disorder. REVIEW OF SYSTEMS: CONSTITUTIONAL: Negative. NEUROLOGIC: Negative. HEENT: Negative. CARDIOVASCULAR: Chest and back pain. PULMONARY: Negative. GI: Nausea, vomiting/epigastric discomfort, resolved. : Negative. RHEUMATOLOGIC: Negative. IMMUNOLOGIC: Negative. ENDOCRINOLOGIC: Negative. DERMATOLOGIC: Negative. Current vital signs are reviewed, temperature is 97.8, heart rate 66, respiratory rate 16, blood pressure 148/93, mean 11, room air saturation 94%. She appears in no acute distress. HEENT: Examination is grossly unremarkable. No supplemental oxygen. NECK: Supple, full range of motion. No adenopathy. Neck veins are flat. CARDIOVASCULAR: Examination reveals regular rhythm and rate. Heart rate 66 beats per minute. S1, S2 normal. No murmur. LUNGS: Reveal relatively clear breath sounds. No wheezes, rhonchi, or crackles. ABDOMEN: Obese. Bowel sounds are noted. EXTREMITIES: Intact. No edema. SKIN: Without rash. NEUROLOGIC: Examination is brief but nonfocal. LABS: Reviewed. White count 4.5, hemoglobin 11, hematocrit 31.5, platelet count is not yet done. PT, INR, PTT normal. D-dimer 1.87. Sodium 138, potassium 3.9, chloride is 114, CO2 is 22, anion gap is 2. BUN and creatinine were 24 and 1.54. N terminal proBNP is 3290. Troponins were negative x2. She has had a chest x-ray which was normal. CT angiogram which was negative for PE or any other pulmonary disease and venous Dopplers that were negative. Current medications are reviewed. Everything seemed to be appropriate. She is not currently on inhalers and she mentioned to us, she does not use any inhalers on a regular basis. ASSESSMENT: 1. Probable underlying COPD from previous heavy tobacco use, currently inactive. 2. Epigastric pain with nausea, vomiting, currently being evaluated by the primary service. 3. Back and chest discomfort, without evidence of active pulmonary disease or pulmonary embolism or thoracic aortic dissection. 4. History of congestive heart failure. 5. History of gastroesophageal reflux disease. 6. History of hypertension. 7. History of alcoholic liver disease and cirrhosis. 8. Stage 4 chronic kidney disease. 9. History of hepatitis C. 10.History of portal hypertension. 11.History of abdominal ascites with multiple paracentesis abdominis. 12.History of IgA nephropathy. 13.Thrombocytopenia. 14.Anemia. 15.Chronic diarrhea. PLAN: Currently, the patient does not have any active pulmonary disease. She may have some underlying COPD. When she is discharged, an outpatient pulmonary function test would be useful in that it would help is stage her disease both telling exact physiology and also the severity of her disease. The PFT can be done at the hospital or we could do the PFT in the office. Additional recommendations and suggestions are forthcoming. I appreciate to be involved in the care of this patient. JULIAN / REEDN: [id number] /
--- NOTE | 2020-03-12 13:30 | P.DS ---
Providers Date of admission: 03/11/20 15:19 Expected date of discharge: 03/12/20 Attending physician: Kel Mason Consults: 03/10/20 18:06 Consult Physician Stat Consulting Provider: Basilio Mchguh Consult Reason/Comments: Serial troponins, shortness of breath, chest pain Do you want consulting provider notified?: Yes 03/11/20 15:21 Consult Physician Routine Consulting Provider: Anabel Barr Consult Reason/Comments: shortness of breath Do you want consulting provider notified?: Yes Consult Physician Routine Consulting Provider: Livia Mcdaniel Consult Reason/Comments: liver cirrhosis. Ascites Do you want consulting provider notified?: Yes Primary care physician: Kel Isabella [facility] Course: diagnosis on discharge: 1. Episodes of chest discomfort patient is admitted to telemetry floor cardiology consultation was requested, troponin level so far negative 2. Underlying history of liver cirrhosis followed by gastroenterology Dr. Mcdaniel. Will request consult due to her abdominal discomfort, there is some ascites but not in any significant amount at this time 3. Underlying history of chronic kidney disease, stage III 4. Underlying history of hypertension blood pressure not well controlled on presentation 5. Underlying history of anemia maintained on iron supplements 6. Shortness of breath cause is unclear pulmonary consultation was requested 7. Evidence of urinary tract infection patient was started on IV Rocephin Hospital course: Heidi Smith, is a 55-year-old female who presented to [facility] emergency room with multiple medical problems including chest discomfort, and shortness of breath, patient has a known history of liver cirrhosis with ascites requiring occasional paracentesis followed by Dr. Mcdaniel. She was having bilateral lower extremity swelling, d-dimer was elevated in the emergency room, computed tomography scan of the chest was done in the ER and did not reveal any convincing evidence of pulmonary embolism, she was admitted to observation unit for further evaluation and treatment, cardiology consultation was requested, patient underwent bilateral lower extremity Doppler that was negative for DVT, patient was seen and examined on the observation unit, she was still having some chest discomfort and shortness of breath, she will be admitted to medical floor pulmonary consultation and gastroenterology consultation were added. On review of system patient is alert and oriented 3 she denies any fever or chills she is having some chest discomfort and shortness of breath no cough no nausea or vomiting she has some abdominal discomfort no abdominal pain no diarrhea no burning was urination no frequency or urgency and no hematuria On 03/12/2020 patient was seen and examined on the medical floor she is alert and oriented 3 in no apparent distress she is feeling better she denies any chest pain or shortness of breath she was evaluated by cardiology and was cleared for discharge, she was also evaluated by pulmonary and possibly she has some underlying COPD Will arrange for follow-up as outpatient for outpatient PFT. Patient will be discharged home today Will follow in our office in 1-2 days will arrange follow-up with pulmonary and gastroenterology Patient Condition at Discharge: Stable Plan - Discharge Summary Discharge Rx Participant: Yes New Discharge Prescriptions: New hydrALAZINE HCL [Apresoline] 25 mg PO TID tab HYDROcodone/APAP 5-325MG [[place] 5-325] 1 each PO Q4HR PRN tab PRN Reason: Moderate Pain amLODIPine [Norvasc] 10 mg PO DAILY tab Continue Metoprolol Tartrate 25 mg PO DAILY ALPRAZolam [Xanax] 0.25 mg PO BID PRN PRN Reason: Anxiety HYDROcodone/APAP 10-325MG [[place] 10-325] 1 tab PO BID PRN PRN Reason: Pain Pantoprazole Sodium [Protonix] 40 mg PO DAILY Allopurinol [Zyloprim] 100 mg PO BID Magnesium Oxide 400 mg PO DAILY Folic Acid 0.4 mg PO DAILY Furosemide [Lasix] 40 mg PO DAILY Ergocalciferol [Vitamin D2 (DRISDOL)] 50,000 unit PO Q14D Ferrous Sulfate [Iron (65 MG Elemental)] 325 mg PO DAILY Levothyroxine Sodium [Synthroid] 50 mcg PO DAILY Discontinued hydrALAZINE HCL [Apresoline] 10 mg PO TID Discharge Medication List ALPRAZolam [Xanax] 0.25 mg PO BID PRN 09/13/18 [History] Metoprolol Tartrate 25 mg PO DAILY 09/13/18 [History] HYDROcodone/APAP 10-325MG [[place] 10-325] 1 tab PO BID PRN 11/21/18 [History] Allopurinol [Zyloprim] 100 mg PO BID 01/12/19 [History] Pantoprazole Sodium [Protonix] 40 mg PO DAILY 01/12/19 [History] Folic Acid 0.4 mg PO DAILY 07/08/19 [History] Magnesium Oxide 400 mg PO DAILY 07/08/19 [History] Furosemide [Lasix] 40 mg PO DAILY 02/25/20 [History] Ergocalciferol [Vitamin D2 (DRISDOL)] 50,000 unit PO Q14D 03/10/20 [History] Ferrous Sulfate [Iron (65 MG Elemental)] 325 mg PO DAILY 03/10/20 [History] Levothyroxine Sodium [Synthroid] 50 mcg PO DAILY 03/10/20 [History] HYDROcodone/APAP 5-325MG [[place] 5-325] 1 each PO Q4HR PRN tab 03/12/20 [Rx] amLODIPine [Norvasc] 10 mg PO DAILY tab 03/12/20 [Rx] hydrALAZINE HCL [Apresoline] 25 mg PO TID tab 03/12/20 [Rx] Follow up Appointment(s)/Referral(s): Kel Mason MD [Primary Care Provider] - 1-2 days Gabriele Mcdaniel MD [STAFF PHYSICIAN] - 2 Weeks Patient Instructions/Handouts: Chest Pain (DC), How to Stop Smoking (DC) Activity/Diet/Wound Care/Special Instructions: Patient will be admitted
[2020-03-17] MEDS ORDERED: ERGOCALCIFEROL 50,000 UNIT CAP PO SCH (09:00)
== END 2020-03-12 13:50 | disposition home or self-care (01) ==
LOC: EC 14:18 → 1SOBS 17:49 → OBSVTOIN 03-11 15:19 → INTOOBSV 03-11 15:19 → UNDODISIN 03-12 13:50
PROVIDERS: ADMIT Internal Medicine; ATTEND Internal Medicine
DX: R07.89 Other chest pain (principal); K76.6 Portal hypertension; N39.0 Urinary tract infection, site not specified; J44.9 Chronic obstructive pulmonary disease, unspecified; K70.31 Alcoholic cirrhosis of liver with ascites; D69.6 Thrombocytopenia, unspecified; D63.1 Anemia in chronic kidney disease; N18.3 Chronic kidney disease, stage 3 (moderate); I12.9 Hypertensive chronic kidney disease with stage 1 through stage 4 chronic kidney disease, or unspecified chronic kidney disease; B19.20 Unspecified viral hepatitis C without hepatic coma; Z20.828 Contact with and (suspected) exposure to other viral communicable diseases; E03.9 Hypothyroidism, unspecified; F41.9 Anxiety disorder, unspecified; G89.29 Other chronic pain; M54.5 Low back pain; K21.9 Gastro-esophageal reflux disease without esophagitis; F10.10 Alcohol abuse, uncomplicated; F17.210 Nicotine dependence, cigarettes, uncomplicated; Z71.6 Tobacco abuse counseling; Z79.890 Hormone replacement therapy; Z79.899 Other long term (current) drug therapy; Z86.19 Personal history of other infectious and parasitic diseases; Z86.59 Personal history of other mental and behavioral disorders; Z98.51 Tubal ligation status; Z88.8 Allergy status to other drugs, medicaments and biological substances; Z82.49 Family history of ischemic heart disease and other diseases of the circulatory system; Z80.9 Family history of malignant neoplasm, unspecified; Z83.2 Family history of diseases of the blood and blood-forming organs and certain disorders involving the immune mechanism; Z82.0 Family history of epilepsy and other diseases of the nervous system
CPT/HCPCS: 93005 ×3; 96361 ×3; 96365; 96366; 96375 ×3; 96376 ×2; 99285; 36415; 94640; 93306; 85379; 83880; 80053; 83605; 84484 ×2; 85025; 85027; 85610; 85730; 81001; 81025; 87086; 71046; 76705; 93970; 71275; G0378 ×3; U0003; J2060; J2270; J0360; J0696 ×2; J1170 ×3; Q9967; 96374

== ENCOUNTER 2020-08-05 14:32 | Inpatient (IN) | payer OTHER ==
[2020-08-05] MEDS ORDERED: IPRATROPIUM-ALBUTEROL 3 ML NEB INHALATION STA (15:38)
[2020-08-05] MEDS: IBUPROFEN 400 MG TAB PO STA ×2 (15:42→15:50)
[2020-08-05] MEDS ORDERED: MORPHINE SULFATE 2 MG/ML SYRINGE IV STA (15:46)
--- NOTE | 2020-08-05 16:07 | ED ---
General Adult HPI - General Chief complaint: Abdominal Pain Stated complaint: ABD Pain Time Seen by Provider: 08/05/20 15:22 Source: patient, RN notes reviewed, old records reviewed Mode of arrival: ambulatory Limitations: no limitations - History of Present Illness Initial comments: 55-year-old female patient to ED for evaluation. Patient's history of liver cirrhosis abdominal ascites which periodically requires paracentesis. She reports that the last week or so she is feeling like she is retaining fluid her abdomen. She reports that she feels as if this is causing some pressure and making her feel short of breath. Patient also has history of COPD and reports some wheezing. She denies any fevers. She denies any other complaints. Systemic: Pt denies fatigue, fever/chills, rash. Pt denies weakness, night sweats, weight loss. Neuro: Pt denies headache, visual disturbances, syncope or pre-syncope. HEENT: Pt denies ocular discharge or irritation, otalgia, rhinorrhea, pharyngitis or notable lymphadenopathy. Cardiopulmonary: Pt denies chest pain, heart palpitations, dyspnea on exertion. Abdominal/GI: Pt denies n/v/d. : Pt denies dysuria, burning w/ urination, frequency/urgency. Denies new onset urinary or bowel incontinence. MSK: Pt denies myalgia, loss of strength or function in extremities. Neuro: Pt denies new onset weakness, paresthesias. - Related Data Home Medications Medication Instructions Recorded Confirmed ALPRAZolam [Xanax] 0.25 mg PO BID PRN 09/13/18 03/10/20 Metoprolol Tartrate 25 mg PO DAILY 09/13/18 03/10/20 HYDROcodone/APAP 10-325MG [[place] 1 tab PO BID PRN 11/21/18 03/10/20 10-325] Pantoprazole Sodium [Protonix] 40 mg PO DAILY 01/12/19 03/10/20 allopurinoL [Zyloprim] 100 mg PO BID 01/12/19 03/10/20 Folic Acid 0.4 mg PO DAILY 07/08/19 03/10/20 Magnesium Oxide 400 mg PO DAILY 07/08/19 03/10/20 Furosemide [Lasix] 40 mg PO DAILY 02/25/20 03/10/20 Ergocalciferol [Vitamin D2 50,000 unit PO Q14D 03/10/20 03/10/20 (DRISDOL)] Ferrous Sulfate [Iron (65 MG 325 mg PO DAILY 03/10/20 03/10/20 Elemental)] Levothyroxine Sodium [Synthroid] 50 mcg PO DAILY 03/10/20 03/10/20 Previous Rx's Medication Instructions Recorded HYDROcodone/APAP 5-325MG [[place] 1 each PO Q4HR PRN tab 03/12/20 5-325] amLODIPine [Norvasc] 10 mg PO DAILY tab 03/12/20 hydrALAZINE HCL [Apresoline] 25 mg PO TID tab 03/12/20 Allergies Allergy/AdvReac Type Severity Reaction Status Date / Time bupropion [From Wellbutrin] AdvReac seizure Verified 08/05/20 15:18 Review of Systems ROS Statement: Those systems with pertinent positive or pertinent negative responses have been documented in the HPI. ROS Other: All systems not noted in ROS Statement are negative. Past Medical History Past Medical History: Heart Failure, COPD, GERD/Reflux, Hypertension, Liver Disease, Renal Disease Additional Past Medical History / Comment(s): admitted to [facility] on 03/02/19 with gastroenteritis/nausea/vomiting/diarrhea/abdominal pain/ascities/UTI and had negative Cdiff. Other hx: Hep C, alcoholic liver cirrhosis, portal HTN, abdominal ascities, IGA nephropathy, thromobocytopenia, CKD stage IV, anemia, severe protein calorie malnutrition, frequent diarrhea, low back pain from an injury. History of Any Multi-Drug Resistant Organisms: None Reported Past Surgical History: Tubal Ligation Additional Past Surgical History / Comment(s): multiple Paracentesis Past Anesthesia/Blood Transfusion Reactions: No Reported Reaction Additional Past Anesthesia/Blood Transfusion Reaction / Comment(s): claustrophobia Past Psychological History: Anxiety, Depression Smoking Status: Current every day smoker Past Alcohol Use History: Abuse Past Drug Use History: None Reported - Past Family History Father History Unknown: Yes Family Medical History: Cancer Additional Family Medical History / Comment(s): Unk type of cancer. Father is . Mother History Unknown: Yes Family Medical History: AFIB, Congestive Heart Failure (CHF), Deep Vein Thrombosis (DVT), Myocardial Infarction ([place]), Seizure Disorder Additional Family Medical History / Comment(s): Mother had a [place] at the age of 52 yrs. She is . Poss DVT. General Exam - General Exam Comments Initial Comments: Constitutional: NAD, AOX3, Pt has pleasant affect. HEENT: NC/AT, trachea midline, neck supple, no lymphadenopathy. External ears appear normal, without discharge. Mucous membranes moist. Eyes PERRLA, EOM intact. There is no scleral icterus. No pallor noted. Cardiopulmonary: RRR, no murmurs, rubs or gallops, no JVD noted. mild wheezing in anterior lung downs. Resolved after breathing treatment. No peripheral edema. Abdominal exam: Abdomen soft and mildly distended. Abdomen non-tender to palpation in all 4 quadrants. Bowel sounds active in LLQ. No hepatosplenomegaly. No ecchymosis Neuro: CN II-XII grossly intact. No nuchal rigidity. No raccon eyes, no caldwell sign, no hemotympanum. No cervical spinal tenderness. MSK: No posterior calf tenderness bilaterally, homans sign negative bilaterally. Posterior tibialis and radial pulse +2 bilaterally. Sensation intact in upper and lower extremities. Full active ROM in upper and lower extremities, 5/5 stregnth. Limitations: no limitations Course Vital Signs 08/05/20 08/05/20 08/05/20 15:14 15:49 15:58 Temperature 98.0 F Pulse Rate 63 75 76 Respiratory 22 18 18 Rate Blood Pressure 164/91 O2 Sat by Pulse 100 Oximetry Medical Decision Making - Medical Decision Making 55-year-old female patient to ED for abdominal bloating, I'll wheezing. Laboratory investigations reveal acute kidney failure. CT abdomen and pelvis revealed ascites. Chest x-ray revealed strandy atelectasis. Patient wheezing resolved with breathing treatment. Patient will be admitted for acute kidney failure, abdominal ascites. Case discussed with Dr. Hurst. Accepting physicain Dr. Mason. - Lab Data Result diagrams: 08/05/20 15:48 08/05/20 15:48 Lab Results 08/05/20 08/05/20 08/05/20 Range/Units 15:48 15:48 15:48 WBC 4.2 (3.8-10.6) k/uL RBC 2.51 L (3.80-5.40) m/uL Hgb 8.0 L (11.4-16.0) gm/dL Hct 24.0 L (34.0-46.0) % MCV 95.8 (80.0-100.0) fL MCH 32.1 (25.0-35.0) pg MCHC 33.5 (31.0-37.0) g/dL RDW 16.2 H (11.5-15.5) % Plt Count (150-450) k/uL MPV 11.0 Neutrophils % 63 % Lymphocytes % 26 % Monocytes % 7 % Eosinophils % 3 % Basophils % 1 % Neutrophils # 2.6 (1.3-7.7) k/uL Lymphocytes # 1.1 (1.0-4.8) k/uL Monocytes # 0.3 (0-1.0) k/uL Eosinophils # 0.1 (0-0.7) k/uL Basophils # 0.0 (0-0.2) k/uL Manual Slide Review Performed Hypochromasia Slight Poikilocytosis Moderate Anisocytosis Slight Sodium 139 (137-145) mmol/L Potassium 4.1 (3.5-5.1) mmol/L Chloride 120 H (98-107) mmol/L Carbon Dioxide 13 L (22-30) mmol/L Anion Gap 6 mmol/L BUN 42 H (7-17) mg/dL Creatinine 5.68 H (0.52-1.04) mg/dL Est GFR (CKD-EPI)AfAm 9 (>60 ml/min/1.73 sqM) Est GFR (CKD-EPI)NonAf 8 (>60 ml/min/1.73 sqM) Glucose 93 (74-99) mg/dL Plasma Lactic Acid Luis E (0.7-2.0) mmol/L Calcium 7.8 L (8.4-10.2) mg/dL Total Bilirubin 0.4 (0.2-1.3) mg/dL AST 25 (14-36) U/L ALT 8 (4-34) U/L Alkaline Phosphatase 71 (38-126) U/L Total Protein 5.7 L (6.3-8.2) g/dL Albumin 2.4 L (3.5-5.0) g/dL Lipase 123 (23-300) U/L Urine Color Yellow Urine Appearance Cloudy H (Clear) Urine pH 6.5 (5.0-8.0) Ur Specific [place] 1.016 (1.001-1.035) Urine Protein 3+ H (Negative) Urine Glucose (UA) 1+ H (Negative) Urine Ketones Negative (Negative) Urine Blood Large H (Negative) Urine Nitrite Negative (Negative) Urine Bilirubin Negative (Negative) Urine Urobilinogen <2.0 (<2.0) mg/dL Ur Leukocyte Esterase Negative (Negative) Urine RBC >182 H (0-5) /hpf Urine WBC 8 H (0-5) /hpf Ur Squamous Epith Cells 3 (0-4) /hpf Urine Bacteria Rare H (None) /hpf Hyaline Casts 24 H (0-2) /lpf Urine Mucus Rare H (None) /hpf 08/05/20 Range/Units 15:48 WBC (3.8-10.6) k/uL RBC (3.80-5.40) m/uL Hgb (11.4-16.0) gm/dL Hct (34.0-46.0) % MCV (80.0-100.0) fL MCH (25.0-35.0) pg MCHC (31.0-37.0) g/dL RDW (11.5-15.5) % Plt Count (150-450) k/uL MPV Neutrophils % % Lymphocytes % % Monocytes % % Eosinophils % % Basophils % % Neutrophils # (1.3-7.7) k/uL Lymphocytes # (1.0-4.8) k/uL Monocytes # (0-1.0) k/uL Eosinophils # (0-0.7) k/uL Basophils # (0-0.2) k/uL Manual Slide Review Hypochromasia Poikilocytosis Anisocytosis Sodium (137-145) mmol/L Potassium (3.5-5.1) mmol/L Chloride (98-107) mmol/L Carbon Dioxide (22-30) mmol/L Anion Gap mmol/L BUN (7-17) mg/dL Creatinine (0.52-1.04) mg/dL Est GFR (CKD-EPI)AfAm (>60 ml/min/1.73 sqM) Est GFR (CKD-EPI)NonAf (>60 ml/min/1.73 sqM) Glucose (74-99) mg/dL Plasma Lactic Acid Luis E 0.7 (0.7-2.0) mmol/L Calcium (8.4-10.2) mg/dL Total Bilirubin (0.2-1.3) mg/dL AST (14-36) U/L ALT (4-34) U/L Alkaline Phosphatase (38-126) U/L Total Protein (6.3-8.2) g/dL Albumin (3.5-5.0) g/dL Lipase (23-300) U/L Urine Color Urine Appearance (Clear) Urine pH (5.0-8.0) Ur Specific [place] (1.001-1.035) Urine Protein (Negative) Urine Glucose (UA) (Negative) Urine Ketones (Negative) Urine Blood (Negative) Urine Nitrite (Negative) Urine Bilirubin (Negative) Urine Urobilinogen (<2.0) mg/dL Ur Leukocyte Esterase (Negative) Urine RBC (0-5) /hpf Urine WBC (0-5) /hpf Ur Squamous Epith Cells (0-4) /hpf Urine Bacteria (None) /hpf Hyaline Casts (0-2) /lpf Urine Mucus (None) /hpf - EKG Data -: EKG Interpreted by Me (and Dr. Hurst ) EKG Comments: ventricular rate 90, [place] interval 164, QRS 86, QT/QTC 366/447. normal sinus rhythm. Low-voltage QRS. Possible septal infarct age indeterminate. No concern for acute ischemia at this time. Disposition Clinical Impression: Abdominal ascites, Acute kidney failure Disposition: ADMITTED IP TO THIS HOSP Condition: Serious Is patient prescribed a controlled substance at d/c from ED?: No
[2020-08-05 16:16] LABS: Anisocytosis Slight; Basophils % (A) 1 %; Eosinophils # (A) 0.1 k/uL (0-0.7); Eosinophils % (A) 3 %; Hypochromasia Slight; Lymphocytes # (A) 1.1 k/uL (1.0-4.8); Lymphocytes % (A) 26 %; MCH 32.1 pg (25.0-35.0); MCHC 33.5 g/dL (31.0-37.0); MCV 95.8 fL (80.0-100.0); Monocytes # (A) 0.3 k/uL (0-1.0); Monocytes % (A) 7 %; Neutrophils # (A) 2.6 k/uL (1.3-7.7); Neutrophils % (A) 63 %; Poikilocytosis Moderate; RBC 2.51 m/uL (3.80-5.40); RDW 16.2 % (11.5-15.5); WBC 4.2 k/uL (3.8-10.6)
[2020-08-05 16:18] LABS: Albumin 2.4 g/dL (3.5-5.0); Calcium 7.8 mg/dL (8.4-10.2); Potassium 4.1 mmol/L (3.5-5.1); Total Bilirubin 0.4 mg/dL (0.2-1.3); Total Protein 5.7 g/dL (6.3-8.2)
[2020-08-05] MEDS ORDERED: SODIUM CHLORIDE 0.9% 500 ML 500 ML IV ONE (16:29)
--- NOTE | 2020-08-05 16:34 | XR ---
EXAMINATION TYPE: XR chest 2V DATE OF EXAM: 08/05/2020 COMPARISON: 03/10/2020 HISTORY: 55-year-old female with abdominal pain TECHNIQUE: PA and lateral views FINDINGS: Heart upper limits of normal in size. Aorta and pulmonary vasculature within normal limits. Mild stra ndy atelectasis in the lower lungs. Otherwise, lungs and pleural spaces are clear. IMPRESSION: Some mild strandy bibasilar atelectasis. No acute process otherwise seen.
--- NOTE | 2020-08-05 16:36 | XR ---
EXAMINATION TYPE: XR KUB DATE OF EXAM: 08/05/2020 Comparison: 02/13/2019 Clinical History: 55-year-old female abdominal pain Findings: No evidence for free intraperitoneal air. Numerous air-fluid levels seen to be localized to both the small bowel and some within the colon. Small bowel loops left upper quadrant dilated up to 3.1 cm. Ov erall possibility of distal colonic air. Impression: Bowel gas pattern is nonspecific. There could be a part generalized ileus/enteritis or early developi ng small bowel obstruction.
--- NOTE | 2020-08-05 16:50 | CT ---
EXAMINATION TYPE: CT abdomen pelvis wo con DATE OF EXAM: 08/05/2020 COMPARISON: 03/02/2019 HISTORY: abdominal pain, generalized. CT DLP: 1425 mGycm Automated exposure control for dose reduction was used. Lung bases are clear of consolidation. There is no pleural effusion. Heart is borderline enlarged. Th ere is no pericardial effusion. Liver is somewhat irregular consistent with cirrhosis. Spleen is large and measures 15 cm. There is m oderate abdominal ascites. There is subcutaneous edema around the abdomen. The stomach is intact. The re is no evidence of pancreatic mass. There is no adrenal mass. Kidneys have normal size. There is no hydronephrosis. Ureters are not dilated. There is no sign of re troperitoneal adenopathy. Bladder distends smoothly. Uterus is anteverted. Lumbar vertebra have normal alignment. There is narrowing of L5-S1 disc with vacuum disc. There is no lumbar compression fracture. The bony pelvis is intact. There is no sign of free air. I see no evidence of a bowel obstruction. There are no dilated loops. A ppendix is not seen. There is no sign of thickened appendix. IMPRESSION: There is moderately large amount of abdominal ascites unchanged. Subcutaneous edema around the abdome n. Unchanged. Irregular relatively small liver consistent with cirrhosis. Mild splenomegaly. Unchanged.
[2020-08-05 17:22] LABS: Appearance,Urine Cloudy (Clear); Bacteria,Urine Rare /hpf; Bilirubin,Urine Negative (Negative); Blood,Urine Large (Negative); Color,Urine Yellow; Glucose,Urine (UA) 1+ (Negative); Hyaline Casts,Urine 24 /lpf (0-2); Ketones,Urine Negative (Negative); Leukocyte Esterase,Urine Negative (Negative); Mucus,Urine Rare /hpf; Nitrite,Urine Negative (Negative); PH, Urine 6.5 (5.0-8.0); Protein,Urine 3+ (Negative); RBC,Urine >182 /hpf (0-5); Specific Gravity,Urine 1.016 (1.001-1.035); Squamous Epithelial Cell,Urine 3 /hpf (0-4); Urobilinogen,Urine <2.0 mg/dL (<2.0); WBC,Urine 8 /hpf (0-5)
[2020-08-05] MEDS ORDERED: NALOXONE 0.4 MG/ML 1 ML VIAL IV PRN (17:43)
[2020-08-05] MEDS ORDERED: ACETAMINOPHEN TAB 325 MG TAB PO PRN (17:43)
[2020-08-05] MEDS ORDERED: ALBUTEROL NEBULIZED 2.5 MG/3 ML INHALATION PRN (18:14)
[2020-08-05] MEDS: SODIUM CHLORIDE 0.9% 1,000 ML IV SCH (19:58)
[2020-08-05] MEDS: MORPHINE SULFATE 2 MG/ML SYRINGE IVP PRN (19:58)
[2020-08-05] MEDS: hydrALAZINE HCL 25 MG TAB PO SCH (21:09)
[2020-08-05] MEDS: allopurinoL 100 MG TAB PO SCH (21:09)
[2020-08-05] MEDS: METOPROLOL TARTRATE 25 MG TAB PO SCH (21:58)
[2020-08-05] MEDS: ISOSORBIDE MONONITRATE ER 30 MG TAB.ER.24H PO SCH (21:59)
[2020-08-05] MEDS: HYDROcodone/APAP 10-325MG 1 EACH TAB PO PRN (23:06)
[2020-08-05] MEDS: ALPRAZolam 0.25 MG TAB PO PRN (23:06)
[2020-08-06] MEDS ORDERED: FUROSEMIDE 10 MG/ML 2 ML VIAL IV ONE (00:24)
[2020-08-06] MEDS: SODIUM CHLORIDE 0.9% 1,000 ML IV SCH (05:23)
[2020-08-06] MEDS: LEVOTHYROXINE 50 MCG TAB PO SCH (05:51)
[2020-08-06] MEDS: MORPHINE SULFATE 2 MG/ML SYRINGE IVP PRN ×2 (06:19→18:48)
[2020-08-06] MEDS: allopurinoL 100 MG TAB PO SCH ×2 (08:07→21:20)
[2020-08-06] MEDS: FOLIC ACID 1 MG TAB PO SCH (08:07)
[2020-08-06] MEDS: POTASSIUM CHLORIDE ER 20 MEQ TAB.ER PO SCH (08:07)
[2020-08-06] MEDS: FERROUS SULFATE 325 MG TAB PO SCH (08:09)
[2020-08-06] MEDS ORDERED: FUROSEMIDE 40 MG TAB PO SCH (09:00)
[2020-08-06] MEDS: PANTOPRAZOLE 40 MG TABLET PO SCH (09:20)
[2020-08-06] MEDS: hydrALAZINE HCL 25 MG TAB PO SCH ×3 (09:20→21:20)
[2020-08-06] MEDS: MAGNESIUM OXIDE 400 MG TAB PO SCH (09:20)
[2020-08-06] MEDS: HYDROcodone/APAP 10-325MG 1 EACH TAB PO PRN ×2 (11:33→15:15)
[2020-08-06] MEDS: hydrALAZINE HCL 20 MG/ML 1 ML VIAL IVP PRN (11:48)
--- NOTE | 2020-08-06 12:00 | P.HPIM ---
History of Present Illness H&P Date: 08/06/20 This is a 55-year-old female patient who presented to the ER with complaints of increased abdominal ascites. Patient has a known past medical history of liver cirrhosis in which she has required paracentesis is in the past. Per patient she has not received one in over a year but has not followed up with GI services. Upon admission patient was found to be in acute kidney failure with creatinine elevated at 5.68 and bun 42. Patient reports she has not been eating well and has been nauseated due to the abdominal ascites. Patient does reports she has been urinating. Additional medical history includes heart failure, COPD, GERD, essential hypertension and EtOH history. Patient denies any current alcohol use. Chest x-ray was completed showing some mild strandy bibasilar atelectasis. No acute process otherwise seen. KUB x-ray completed showing bowel gas pattern is nonspecific this could be part generalized ileus enters or early developing small bowel obstruction. CT of abdomen and pelvis completed showing moderately large amount of abdominal ascites unchanged subcutaneous edema around the abdomen unchanged irregular relatively small liver consistent with cirrhosis mild splenomegaly unchanged. At this time nephrology and GI services have been consulted. Patient also positive for blood in her urine which has been consistent with past urinary analysis. Patient was referred to neurology services by PCP but states she has not been able to see urologist will consult urology during inpatient stay. At this time patient denies any chest pain. Patient reports some shortness of breath. Patient denies nausea vomiting or diarrhea at this time. Patient denies any urinary burning or frequency Review of Systems please refer to HPI otherwise unremarkable Past Medical History Past Medical History: Heart Failure, COPD, GERD/Reflux, Hypertension, Liver Disease, Renal Disease Additional Past Medical History / Comment(s): admitted to [facility] on 03/02/19 with gastroenteritis/nausea/vomiting/diarrhea/abdominal pain/ascities/UTI and had negative Cdiff. Other hx: Hep C, alcoholic liver cirrhosis, portal HTN, abdominal ascities, IGA nephropathy, thromobocytopenia, CKD stage IV, anemia, severe protein calorie malnutrition, frequent diarrhea, low back pain from an injury. History of Any Multi-Drug Resistant Organisms: None Reported Past Surgical History: Tubal Ligation Additional Past Surgical History / Comment(s): multiple Paracentesis Past Anesthesia/Blood Transfusion Reactions: No Reported Reaction Additional Past Anesthesia/Blood Transfusion Reaction / Comment(s): claustrophobia Past Psychological History: Anxiety, Depression Additional Psychological History / Comment(s): Pt resides with significant other in an apartment. She does not drive. She is otherwise independent. Smoking Status: Current every day smoker Past Alcohol Use History: Abuse Additional Past Alcohol Use History / Comment(s): Started smoking at age 12, used to smoke 1 ppd but has cut down to 1/2 ppd. Pt quit drinking July 2018, used to drink rum & beer-8 beers daily & liquor also daily Past Drug Use History: None Reported - Past Family History Father History Unknown: Yes Family Medical History: Cancer Additional Family Medical History / Comment(s): Unk type of cancer. Father is . Mother History Unknown: Yes Family Medical History: AFIB, Congestive Heart Failure (CHF), Deep Vein Thrombosis (DVT), Myocardial Infarction ([place]), Seizure Disorder Additional Family Medical History / Comment(s): Mother had a [place] at the age of 52 yrs. She is . Poss DVT. Medications and Allergies Home Medications Medication Instructions Recorded Confirmed Type ALPRAZolam [Xanax] 0.25 mg PO BID PRN 09/13/18 08/05/20 History Metoprolol Tartrate 25 mg PO DAILY 09/13/18 08/05/20 History HYDROcodone/APAP 10-325MG [[place] 1 tab PO BID PRN 11/21/18 08/05/20 History 10-325] Pantoprazole Sodium [Protonix] 40 mg PO DAILY 01/12/19 08/05/20 History allopurinoL [Zyloprim] 100 mg PO BID 01/12/19 08/05/20 History Folic Acid 0.4 mg PO DAILY 07/08/19 08/05/20 History Magnesium Oxide 400 mg PO DAILY 07/08/19 08/05/20 History Furosemide [Lasix] 40 mg PO DAILY 02/25/20 08/05/20 History Ergocalciferol [Vitamin D2 50,000 unit PO [place] 03/10/20 08/05/20 History (DRISDOL)] Ferrous Sulfate [Iron (65 MG 325 mg PO DAILY 03/10/20 08/05/20 History Elemental)] Levothyroxine Sodium [Synthroid] 50 mcg PO DAILY 03/10/20 08/05/20 History hydrALAZINE HCL [Apresoline] 25 mg PO TID tab 03/12/20 08/05/20 Rx Isosorbide Mononitrate ER [Imdur] 30 mg PO DAILY 08/05/20 08/05/20 History Potassium Chloride ER [K-Dur ] 20 meq PO DAILY 08/05/20 08/05/20 History Allergies Allergy/AdvReac Type Severity Reaction Status Date / Time bupropion [From Wellbutrin] AdvReac seizure Verified 08/05/20 19:04 Physical Exam Vitals: Vital Signs Temp Pulse Pulse Resp BP BP Pulse Ox 08/06/20 07:59 70 08/06/20 07:48 70 08/06/20 07:23 98.2 F 72 16 189/91 99 08/06/20 01:30 98.2 F 66 29 H 142/76 100 08/06/20 00:27 99.0 F 71 18 203/97 100 08/05/20 21:56 97.7 F 74 16 193/94 100 08/05/20 19:53 97.3 F L 70 18 197/91 99 08/05/20 15:58 76 18 08/05/20 15:49 75 18 08/05/20 15:14 98.0 F 63 22 164/91 100 Intake and Output 08/05/20 08/06/20 08/06/20 22:59 06:59 14:59 Intake Total 100 100 Balance 100 100 Intake: Oral 100 100 Other: # Voids 1 Weight 96.615 kg 96.615 kg Head normocephalic Neck supple Lungs clear to auscultation bilaterally no wheezing or crackles Heart regular rate and rhythm S1-S2, no rub or gallop Abdomen is is rounded ascites noted Extremities no edema Neuro alert and orientated to 3 Results CBC & Chem 7: 08/05/20 15:48 08/05/20 15:48 Labs: Abnormal Lab Results - Last 24 Hours (Table) 08/05/20 08/05/20 08/05/20 Range/Units 15:48 15:48 15:48 RBC 2.51 L (3.80-5.40) m/uL Hgb 8.0 L (11.4-16.0) gm/dL Hct 24.0 L (34.0-46.0) % RDW 16.2 H (11.5-15.5) % Chloride 120 H (98-107) mmol/L Carbon Dioxide 13 L (22-30) mmol/L BUN 42 H (7-17) mg/dL Creatinine 5.68 H (0.52-1.04) mg/dL Calcium 7.8 L (8.4-10.2) mg/dL Total Protein 5.7 L (6.3-8.2) g/dL Albumin 2.4 L (3.5-5.0) g/dL Urine Appearance Cloudy H (Clear) Urine Protein 3+ H (Negative) Urine Glucose (UA) 1+ H (Negative) Urine Blood Large H (Negative) Urine RBC >182 H (0-5) /hpf Urine WBC 8 H (0-5) /hpf Urine Bacteria Rare H (None) /hpf Hyaline Casts 24 H (0-2) /lpf Urine Mucus Rare H (None) /hpf Thrombosis Risk Factor Assmnt - Choose All That Apply Any of the Below Risk Factors Present?: Yes Each Factor Represents 1 point: Age 41-60 years, Obesity (BMI >25) Thrombosis Risk Factor Assessment Total Risk Factor Score: 2 Thrombosis Risk Factor Assessment Level: Low Risk Assessment and Plan Assessment: 1. Abdominal ascites secondary to liver cirrhosis. GI services have been consulted 2. Acute kidney injury. Creatinine elevated at 5.6 and bun 42 nephrology services have been consulted. Patient started on sodium bicarbonate drip per nephrology 3. Anemia of chronic disease 4. History of COPD 5. History of hepatitis C 6. History of chronic pain 7. Essential hypertension 8. Blood in urine. Urology consult placed DVT prophylaxis Lovenox. GI prophylaxis Pepcid GI, nephrology and urology service is consulted Time with Patient: Greater than 30 (Greater than 60% of the total time spent in counseling and coordination of care)
[2020-08-06 12:28] LABS: Anisocytosis Slight; Basophils % (A) 1 %; Eosinophils # (A) 0.1 k/uL (0-0.7); Eosinophils % (A) 3 %; HCT 21.4 % (34.0-46.0); Hypochromasia Moderate; Lymphocytes # (A) 1.1 k/uL (1.0-4.8); Lymphocytes % (A) 31 %; MCH 30.8 pg (25.0-35.0); MCHC 32.2 g/dL (31.0-37.0); MCV 95.6 fL (80.0-100.0); Mean Platelet Volume 10.6; Monocytes # (A) 0.3 k/uL (0-1.0); Monocytes % (A) 9 %; Neutrophils # (A) 1.9 k/uL (1.3-7.7); Neutrophils % (A) 56 %; Poikilocytosis Moderate; RBC 2.24 m/uL (3.80-5.40); RDW 16.3 % (11.5-15.5); WBC 3.5 k/uL (3.8-10.6)
[2020-08-06 12:42] LABS: HGB 6.9 gm/dL (11.4-16.0)
[2020-08-06] MEDS: DEXTROSE 5% IN WATER 1,000 ML with SODIUM BICARB (1 MEQ/ML) 150 ML IV SCH ×2 (13:50→21:24)
--- NOTE | 2020-08-06 14:32 | CONS ---
CONSULTATION REASON FOR CONSULT: Renal failure. HISTORY OF PRESENT ILLNESS: The patient is a 55-year-old female with history of liver cirrhosis and previous history of acute kidney injury. She was admitted to the hospital with complaints of weakness, not feeling well. Patient denied any fevers or chills. She did have some diarrhea and vomiting with decreased oral intake. She had some abdominal pain as well. Patient states that she has had good urine output. She had been taking some Motrin for pain on and off prior to admission. Serum creatinine was noted to be 5.6 mg/dL. Prior creatinine was 1.5 in February and January of 2020. At home, patient was maintained on Lasix. She did admit to use of NSAIDs as mentioned. On admission, blood pressure has not been low, in fact it has been on the higher side. PAST MEDICAL HISTORY: Significant for chronic liver disease, nonalcoholic, COPD, gastroesophageal reflux disease, hypertension, history of CKD. Previous creatinine 1.5. History of hepatitis C, portal hypertension, history of IgA nephropathy status post kidney biopsy in November of 2018 status post trial of steroids. She was last seen in the office in April of 2020. At that time, her creatinine was about 1.4 mg/dL. MEDICATIONS: Prior to admission included Xanax, metoprolol, [place], Protonix, Zyloprim, Lasix, magnesium, folic acid, vitamin D2, iron, Synthroid, [place], Norvasc, hydralazine. ALLERGIES: Include WELLBUTRIN caused a seizure. PAST SURGICAL HISTORY: Tubal ligation, multiple paracentesis, kidney biopsy. SOCIAL HISTORY: Positive for smoking. There is history of EtOH abuse previously. PHYSICAL EXAMINATION: Patient is currently comfortable, awake, not in any acute distress. Blood pressure is 189/91, heart rate 72 per minute, she is afebrile. Examination of the heart S1, S2. Examination of the lungs, bilateral breath sounds are heard. Abdomen is soft, nontender, distended with ascites. Examination of the lower extremity shows no significant edema. RELIABILITY MANAGER exam grossly intact. LABS: Show sodium 139, potassium 4.1, chloride 120, CO2 is 13, BUN 42, creatinine 5.68, hemoglobin 8.0 g/dL. UA shows 3+ protein, 1+ glucose, WBC is 8, RBC is more than 182. ASSESSMENT: 1. Acute kidney injury, most likely prerenal associated with volume depletion. Continue with IV fluids, repeat labs today. Avoid any nephrotoxic agents. Avoid hypotension. 2. History of chronic kidney disease stage 3. Previous creatinine 1.5-1.4 secondary to IgA nephropathy status post kidney biopsy November of 2018, status post trial of steroids. The last creatinine 1.4 in April of 2020. 3. Non gap metabolic acidosis associated with renal failure and will start IV bicarb. 4. Anemia. Rule out iron deficiency and GI bleed. 5. Liver cirrhosis and chronic liver disease with history of hepatitis C and portal hypertension. 6. Vitamin D deficiency. 7. Hypertension, currently controlled. PLAN: Hold Lasix. Continue IV fluids. Change IV fluids to IV bicarb and repeat labs in a.m. Thank you for this consultation. Will continue to follow the patient with you during her hospitalization. MMODL / IJN: [id number] /
[2020-08-06 14:52] LABS: Mean Platelet Volume 8.1
[2020-08-06 14:53] LABS: Platelet Count 84 k/uL (150-450)
[2020-08-06 15:03] LABS: INR 1.1 (<1.2); Prothrombin Time 10.9 sec (9.0-12.0)
--- NOTE | 2020-08-06 15:29 | P.GSCN ---
History of Present Illness Consult date: 08/06/20 History of present illness: CHIEF COMPLAINT: Abdominal pain HISTORY OF PRESENT ILLNESS: This is a 55-year-old female with a known history of alcoholic liver cirrhosis with abdominal ascites. Patient has required multiple paracentesis in the past. However last paracentesis was about a year ago. 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 Patient presents to the emergency room with complaints of abdominal pain for the last month. On the last couple a days she's had increase in abdominal discomfort. She has noticed an increase in abdominal size and increase in her ascites. Pain radiates to the lower back. She's also having nausea. She does report having about 2 loose stools a day. No blood or black stools reported. She is having blood in her urine. KUB x-ray had shown bowel gas pattern nonspecific. There could be a generalized ileus or enteritis. Or early developing small bowel obstruction. Surgical consult was placed for possible bowel obstruction. Computed tomography scan abdomen showed no evidence of bowel obstruction. Patient denies any vomiting. Denies any fever chills or sweats. PAST MEDICAL HISTORY: See list. PAST SURGICAL HISTORY: See list. MEDICATIONS: See list. ALLERGIES: See list. SOCIAL HISTORY: No illicit drug use. REVIEW OF SYSTEMS: CONSTITUTIONAL: Denies fever or chills. HEENT: Denies blurred vision, vision changes, or eye pain. Denies hemoptysis CARDIOVASCULAR: Denies chest pain or pressure. RESPIRATORY: No shortness of breath. GASTROINTESTINAL: See HPI for pertinent findings HEMATOLOGIC: Denies bleeding disorders. GENITOURINARY: Denies any blood in urine or increased urinary frequency. SKIN: Denies pruitis. Denies rash. PHYSICAL EXAM: VITAL SIGNS: Reviewed GENERAL: Well-developed in no acute distress. HEENT: No sclera icterus. Extraocular movements grossly intact. Moist buccal mucosa. Head is atraumatic, normocephalic. No nasal drainage. ABDOMEN: Soft distended abdominal ascites present. Diffuse tenderness. NEUROLOGIC: Alert and oriented. Cranial nerves II through XII grossly intact. LABORATORY DATA: WBC 3.5 hemoglobin has dropped from 8-6.9 platelets 84 CO2 13 creatinine 5.68 lactic 0.7 Total bili 0.4 LFTs normal lipase normal UA large amount of blood IMAGING: KUB x-ray had shown bowel gas pattern nonspecific. There could be a generalized ileus or enteritis. Or early developing small bowel obstruction. Computed tomography scan of the abdomen and pelvis per radiologist's report shows no evidence of bowel obstruction. There are no dilated loops. There is a moderately large amount of abdominal ascites unchanged. Subcutaneous edema around the abdomen unchanged. Irregular relatively small liver consistent with cirrhosis. Mild splenomegaly unchanged ASSESSMENT: 1. Abdominal pain likely due to abdominal ascites. Possible ileus. No evidence of bowel obstruction on CAT scan 2. History of liver cirrhosis with abdominal ascites requiring paracentesis. Patient scheduled for paracentesis today 3. Anemia which is multifactorial 4. Hematuria evaluated by urology 5. Chronic kidney disease stage IV PLAN: -Agree with the GI workup and paracentesis -Patient is scheduled for 1 unit of blood -Continue regular diet Thank you for this consultation Physician Gunite Nozzle Operator note has been reviewed by physician. Signing provider agrees with the documented findings, assessment, and plan of care. Past Medical History Past Medical History: Heart Failure, COPD, GERD/Reflux, Hypertension, Liver Disease, Renal Disease Additional Past Medical History / Comment(s): admitted to [facility] on 03/02/19 with gastroenteritis/nausea/vomiting/diarrhea/abdominal pain/ascities/UTI and had negative Cdiff. Other hx: Hep C, alcoholic liver cirrhosis, portal HTN, abdominal ascities, IGA nephropathy, thromobocytopenia, CKD stage IV, anemia, severe protein calorie malnutrition, frequent diarrhea, low back pain from an injury. History of Any Multi-Drug Resistant Organisms: None Reported Past Surgical History: Tubal Ligation Additional Past Surgical History / Comment(s): multiple Paracentesis Past Anesthesia/Blood Transfusion Reactions: No Reported Reaction Additional Past Anesthesia/Blood Transfusion Reaction / Comm: claustrophobia Past Psychological History: Anxiety, Depression Additional Psychological History / Comment(s): Pt resides with significant other in an apartment. She does not drive. She is otherwise independent. Smoking Status: Current every day smoker Past Alcohol Use History: Abuse Additional Past Alcohol Use History / Comment(s): Started smoking at age 12, used to smoke 1 ppd but has cut down to 1/2 ppd. Pt quit drinking July 2018, used to drink rum & beer-8 beers daily & liquor also daily Past Drug Use History: None Reported - Past Family History Father History Unknown: Yes Family Medical History: Cancer Additional Family Medical History / Comment(s): Unk type of cancer. Father is . Mother History Unknown: Yes Family Medical History: AFIB, Congestive Heart Failure (CHF), Deep Vein Thrombosis (DVT), Myocardial Infarction (GA), Seizure Disorder Additional Family Medical History / Comment(s): Mother had a GA at the age of 52 yrs. She is . Poss DVT. Medications and Allergies Home Medications Medication Instructions Recorded Confirmed Type ALPRAZolam [Xanax] 0.25 mg PO BID PRN 09/13/18 08/05/20 History Metoprolol Tartrate 25 mg PO DAILY 09/13/18 08/05/20 History HYDROcodone/APAP 10-325MG [[place] 1 tab PO BID PRN 11/21/18 08/05/20 History 10-325] Pantoprazole Sodium [Protonix] 40 mg PO DAILY 01/12/19 08/05/20 History allopurinoL [Zyloprim] 100 mg PO BID 01/12/19 08/05/20 History Folic Acid 0.4 mg PO DAILY 07/08/19 08/05/20 History Magnesium Oxide 400 mg PO DAILY 07/08/19 08/05/20 History Furosemide [Lasix] 40 mg PO DAILY 02/25/20 08/05/20 History Ergocalciferol [Vitamin D2 50,000 unit PO MO 03/10/20 08/05/20 History (DRISDOL)] Ferrous Sulfate [Iron (65 MG 325 mg PO DAILY 03/10/20 08/05/20 History Elemental)] Levothyroxine Sodium [Synthroid] 50 mcg PO DAILY 03/10/20 08/05/20 History hydrALAZINE HCL [Apresoline] 25 mg PO TID tab 03/12/20 08/05/20 Rx Isosorbide Mononitrate ER [Imdur] 30 mg PO DAILY 08/05/20 08/05/20 History Potassium Chloride ER [K-Dur 20] 20 meq PO DAILY 08/05/20 08/05/20 History Allergies Allergy/AdvReac Type Severity Reaction Status Date / Time bupropion [From Wellbutrin] AdvReac seizure Verified 08/05/20 19:04 Surgical - Exam Vital Signs Temp Pulse Resp BP Pulse Ox 98.0 F 63 22 164/91 100 08/05/20 15:14 08/05/20 15:14 08/05/20 15:14 08/05/20 15:14 08/05/20 15:14 Results - Labs 08/06/20 14:30 08/05/20 15:48 Abnormal Lab Results - Last 24 Hours (Table) 08/05/20 08/05/20 08/05/20 Range/Units 15:48 15:48 15:48 WBC (3.8-10.6) k/uL RBC 2.51 L (3.80-5.40) m/uL Hgb 8.0 L (11.4-16.0) gm/dL Hct 24.0 L (34.0-46.0) % RDW 16.2 H (11.5-15.5) % Plt Count (150-450) k/uL Chloride 120 H (98-107) mmol/L Carbon Dioxide 13 L (22-30) mmol/L BUN 42 H (7-17) mg/dL Creatinine 5.68 H (0.52-1.04) mg/dL Calcium 7.8 L (8.4-10.2) mg/dL Total Protein 5.7 L (6.3-8.2) g/dL Albumin 2.4 L (3.5-5.0) g/dL Urine Appearance Cloudy H (Clear) Urine Protein 3+ H (Negative) Urine Glucose (UA) 1+ H (Negative) Urine Blood Large H (Negative) Urine RBC >182 H (0-5) /hpf Urine WBC 8 H (0-5) /hpf Urine Bacteria Rare H (None) /hpf Hyaline Casts 24 H (0-2) /lpf Urine Mucus Rare H (None) /hpf 08/06/20 08/06/20 Range/Units 11:29 14:30 WBC 3.5 L (3.8-10.6) k/uL RBC 2.24 L (3.80-5.40) m/uL Hgb 6.9 L* (11.4-16.0) gm/dL Hct 21.4 L (34.0-46.0) % RDW 16.3 H (11.5-15.5) % Plt Count 84 L (150-450) k/uL Chloride (98-107) mmol/L Carbon Dioxide (22-30) mmol/L BUN (7-17) mg/dL Creatinine (0.52-1.04) mg/dL Calcium (8.4-10.2) mg/dL Total Protein (6.3-8.2) g/dL Albumin (3.5-5.0) g/dL Urine Appearance (Clear) Urine Protein (Negative) Urine Glucose (UA) (Negative) Urine Blood (Negative) Urine RBC (0-5) /hpf Urine WBC (0-5) /hpf Urine Bacteria (None) /hpf Hyaline Casts (0-2) /lpf Urine Mucus (None) /hpf Diabetes panel 08/05/20 Range/Units 15:48 Sodium 139 (137-145) mmol/L Potassium 4.1 (3.5-5.1) mmol/L Chloride 120 H (98-107) mmol/L Carbon Dioxide 13 L (22-30) mmol/L BUN 42 H (7-17) mg/dL Creatinine 5.68 H (0.52-1.04) mg/dL Glucose 93 (74-99) mg/dL Calcium 7.8 L (8.4-10.2) mg/dL AST 25 (14-36) U/L ALT 8 (4-34) U/L Alkaline Phosphatase 71 (38-126) U/L Total Protein 5.7 L (6.3-8.2) g/dL Albumin 2.4 L (3.5-5.0) g/dL Calcium panel 08/05/20 Range/Units 15:48 Calcium 7.8 L (8.4-10.2) mg/dL Albumin 2.4 L (3.5-5.0) g/dL Pituitary panel 08/05/20 Range/Units 15:48 Sodium 139 (137-145) mmol/L Potassium 4.1 (3.5-5.1) mmol/L Chloride 120 H (98-107) mmol/L Carbon Dioxide 13 L (22-30) mmol/L BUN 42 H (7-17) mg/dL Creatinine 5.68 H (0.52-1.04) mg/dL Glucose 93 (74-99) mg/dL Calcium 7.8 L (8.4-10.2) mg/dL Adrenal panel 08/05/20 Range/Units 15:48 Sodium 139 (137-145) mmol/L Potassium 4.1 (3.5-5.1) mmol/L Chloride 120 H (98-107) mmol/L Carbon Dioxide 13 L (22-30) mmol/L BUN 42 H (7-17) mg/dL Creatinine 5.68 H (0.52-1.04) mg/dL Glucose 93 (74-99) mg/dL Calcium 7.8 L (8.4-10.2) mg/dL Total Bilirubin 0.4 (0.2-1.3) mg/dL AST 25 (14-36) U/L ALT 8 (4-34) U/L Alkaline Phosphatase 71 (38-126) U/L Total Protein 5.7 L (6.3-8.2) g/dL Albumin 2.4 L (3.5-5.0) g/dL
[2020-08-06] MEDS: ALPRAZolam 0.25 MG TAB PO PRN (18:09)
[2020-08-06 18:32] LABS: % Iron Saturation 30.77 (12.00-45.00)
[2020-08-06 18:44] LABS: African American GFR (CKD) 9.8 (60.0-200.0); Albumin 2.4 g/dL (3.80-4.90); BUN/Creat Ratio 8.3 Ratio (12.00-20.00); Calcium 7.6 mg/dL (8.7-10.3); Globulin 2.4 g/dL (1.6-3.3); Non-African American GFR(CKD) 8.5 (60.0-200.0); Total Bilirubin 0.2 mg/dL (0.3-1.2); Total Protein 4.8 g/dL (6.2-8.2)
--- NOTE | 2020-08-06 21:29 | P.GSCN ---
History of Present Illness Consult date: 08/06/20 Reason for Consult: Hematuria Requesting physician: Kel Mason History of present illness: The patient is a 55-year-old white female with a one-year history of intermittent gross painless hematuria. She denies dysuria but does report occasional slight "itching". She also reports nonspecific back pain. She denies any prior history of UTIs or urolithiasis. She is currently admitted with increased ascites. Review of Systems - Constitutional Denies chills, Denies fever - Cardiovascular Denies chest pain - Respiratory Denies dyspnea - Gastrointestinal Denies nausea, Denies vomiting - Genitourinary Genitourinary: Reports as per HPI Past Medical History Past Medical History: Heart Failure, COPD, GERD/Reflux, Hypertension, Liver Disease, Renal Disease Additional Past Medical History / Comment(s): admitted to [facility] on 03/02/19 with gastroenteritis/nausea/vomiting/diarrhea/abdominal pain/ascities/UTI and had negative Cdiff. Other hx: Hep C, alcoholic liver cirrhosis, portal HTN, abdominal ascities, IGA nephropathy, thromobocytopenia, CKD stage IV, anemia, severe protein calorie malnutrition, frequent diarrhea, low back pain from an injury. History of Any Multi-Drug Resistant Organisms: None Reported Past Surgical History: Tubal Ligation Additional Past Surgical History / Comment(s): multiple Paracentesis Past Anesthesia/Blood Transfusion Reactions: No Reported Reaction Additional Past Anesthesia/Blood Transfusion Reaction / Comm: claustrophobia Past Psychological History: Anxiety, Depression Additional Psychological History / Comment(s): Pt resides with significant other in an apartment. She does not drive. She is otherwise independent. Smoking Status: Current every day smoker Past Alcohol Use History: Abuse Additional Past Alcohol Use History / Comment(s): Started smoking at age 12, used to smoke 1 ppd but has cut down to 1/2 ppd. Pt quit drinking July 2018, used to drink rum & beer-8 beers daily & liquor also daily Past Drug Use History: None Reported - Past Family History Father History Unknown: Yes Family Medical History: Cancer Additional Family Medical History / Comment(s): Unk type of cancer. Father is . Mother History Unknown: Yes Family Medical History: AFIB, Congestive Heart Failure (CHF), Deep Vein Thrombosis (DVT), Myocardial Infarction (MO), Seizure Disorder Additional Family Medical History / Comment(s): Mother had a MO at the age of 52 yrs. She is . Poss DVT. Medications and Allergies Home Medications Medication Instructions Recorded Confirmed Type ALPRAZolam [Xanax] 0.25 mg PO BID PRN 09/13/18 08/05/20 History Metoprolol Tartrate 25 mg PO DAILY 09/13/18 08/05/20 History HYDROcodone/APAP 10-325MG [[place] 1 tab PO BID PRN 11/21/18 08/05/20 History 10-325] Pantoprazole Sodium [Protonix] 40 mg PO DAILY 01/12/19 08/05/20 History allopurinoL [Zyloprim] 100 mg PO BID 01/12/19 08/05/20 History Folic Acid 0.4 mg PO DAILY 07/08/19 08/05/20 History Magnesium Oxide 400 mg PO DAILY 07/08/19 08/05/20 History Furosemide [Lasix] 40 mg PO DAILY 02/25/20 08/05/20 History Ergocalciferol [Vitamin D2 50,000 unit PO MO 03/10/20 08/05/20 History (DRISDOL)] Ferrous Sulfate [Iron (65 MG 325 mg PO DAILY 03/10/20 08/05/20 History Elemental)] Levothyroxine Sodium [Synthroid] 50 mcg PO DAILY 03/10/20 08/05/20 History hydrALAZINE HCL [Apresoline] 25 mg PO TID tab 03/12/20 08/05/20 Rx Isosorbide Mononitrate ER [Imdur] 30 mg PO DAILY 08/05/20 08/05/20 History Potassium Chloride ER [K-Dur 20] 20 meq PO DAILY 08/05/20 08/05/20 History Allergies Allergy/AdvReac Type Severity Reaction Status Date / Time bupropion [From Wellbutrin] AdvReac seizure Verified 08/05/20 19:04 Surgical - Exam Vital Signs Temp Pulse Resp BP Pulse Ox 98.0 F 63 22 164/91 100 08/05/20 15:14 08/05/20 15:14 08/05/20 15:14 08/05/20 15:14 08/05/20 15:14 - General well developed, well nourished, no distress - Respiratory normal respiratory effort - Abdomen Distended secondary to ascites, diffuse mild tenderness, no guarding, no rebound. - Psychiatric oriented to time, oriented to person, oriented to place, speech is normal, memory intact Results - Labs 08/06/20 14:30 08/06/20 11:29 Abnormal Lab Results - Last 24 Hours (Table) 08/05/20 08/05/20 08/05/20 Range/Units 15:48 15:48 15:48 RBC 2.51 L (3.80-5.40) m/uL Hgb 8.0 L (11.4-16.0) gm/dL Hct 24.0 L (34.0-46.0) % RDW 16.2 H (11.5-15.5) % Chloride 120 H (98-107) mmol/L Carbon Dioxide 13 L (22-30) mmol/L BUN 42 H (7-17) mg/dL Creatinine 5.68 H (0.52-1.04) mg/dL Calcium 7.8 L (8.4-10.2) mg/dL Total Protein 5.7 L (6.3-8.2) g/dL Albumin 2.4 L (3.5-5.0) g/dL Urine Appearance Cloudy H (Clear) Urine Protein 3+ H (Negative) Urine Glucose (UA) 1+ H (Negative) Urine Blood Large H (Negative) Urine RBC >182 H (0-5) /hpf Urine WBC 8 H (0-5) /hpf Urine Bacteria Rare H (None) /hpf Hyaline Casts 24 H (0-2) /lpf Urine Mucus Rare H (None) /hpf Diabetes panel 08/05/20 Range/Units 15:48 Sodium 139 (137-145) mmol/L Potassium 4.1 (3.5-5.1) mmol/L Chloride 120 H (98-107) mmol/L Carbon Dioxide 13 L (22-30) mmol/L BUN 42 H (7-17) mg/dL Creatinine 5.68 H (0.52-1.04) mg/dL Glucose 93 (74-99) mg/dL Calcium 7.8 L (8.4-10.2) mg/dL AST 25 (14-36) U/L ALT 8 (4-34) U/L Alkaline Phosphatase 71 (38-126) U/L Total Protein 5.7 L (6.3-8.2) g/dL Albumin 2.4 L (3.5-5.0) g/dL Calcium panel 08/05/20 Range/Units 15:48 Calcium 7.8 L (8.4-10.2) mg/dL Albumin 2.4 L (3.5-5.0) g/dL Pituitary panel 08/05/20 Range/Units 15:48 Sodium 139 (137-145) mmol/L Potassium 4.1 (3.5-5.1) mmol/L Chloride 120 H (98-107) mmol/L Carbon Dioxide 13 L (22-30) mmol/L BUN 42 H (7-17) mg/dL Creatinine 5.68 H (0.52-1.04) mg/dL Glucose 93 (74-99) mg/dL Calcium 7.8 L (8.4-10.2) mg/dL Adrenal panel 08/05/20 Range/Units 15:48 Sodium 139 (137-145) mmol/L Potassium 4.1 (3.5-5.1) mmol/L Chloride 120 H (98-107) mmol/L Carbon Dioxide 13 L (22-30) mmol/L BUN 42 H (7-17) mg/dL Creatinine 5.68 H (0.52-1.04) mg/dL Glucose 93 (74-99) mg/dL Calcium 7.8 L (8.4-10.2) mg/dL Total Bilirubin 0.4 (0.2-1.3) mg/dL AST 25 (14-36) U/L ALT 8 (4-34) U/L Alkaline Phosphatase 71 (38-126) U/L Total Protein 5.7 L (6.3-8.2) g/dL Albumin 2.4 L (3.5-5.0) g/dL - Imaging CT scan - abdomen: report reviewed, image reviewed Assessment and Plan (1) Gross hematuria Current Visit: Yes Status: Acute Code(s): R31.0 - GROSS HEMATURIA SNOMED Code(s): 901746507 Plan: I had a lengthy discussion with the patient regarding her intermittent gross hematuria. I have reviewed her computed tomography scan, which reveals the kidneys and bladder to be normal in appearance. Urinalysis currently shows significant microhematuria but no evidence of infection. I have suggested she undergo outpatient cystoscopy to rule out intravesical pathology. Time with Patient: Greater than 30
[2020-08-07] MEDS: MORPHINE SULFATE 2 MG/ML SYRINGE IVP PRN ×4 (01:13→22:03)
[2020-08-07] MEDS: HYDROcodone/APAP 10-325MG 1 EACH TAB PO PRN ×2 (02:17→14:10)
[2020-08-07] MEDS: hydrALAZINE HCL 20 MG/ML 1 ML VIAL IVP PRN ×2 (02:19→11:16)
[2020-08-07] MEDS: LEVOTHYROXINE 50 MCG TAB PO SCH (06:02)
[2020-08-07] MEDS: ALPRAZolam 0.25 MG TAB PO PRN (06:02)
[2020-08-07 06:20] LABS: Basophils % (A) 0 %; Eosinophils # (A) 0.1 k/uL (0-0.7); Eosinophils % (A) 3 %; HCT 24.9 % (34.0-46.0); Hypochromasia Slight; Lymphocytes # (A) 1.1 k/uL (1.0-4.8); Lymphocytes % (A) 31 %; MCH 31.1 pg (25.0-35.0); MCHC 32.1 g/dL (31.0-37.0); Monocytes # (A) 0.3 k/uL (0-1.0); Monocytes % (A) 8 %; Neutrophils % (A) 56 %; Poikilocytosis Slight; RBC 2.57 m/uL (3.80-5.40); RDW 15.9 % (11.5-15.5); WBC 3.7 k/uL (3.8-10.6)
[2020-08-07 06:30] LABS: Mean Platelet Volume 7.8
[2020-08-07 06:32] LABS: Platelet Count 75 k/uL (150-450)
[2020-08-07] MEDS: PANTOPRAZOLE 40 MG TABLET PO SCH (07:36)
[2020-08-07] MEDS ORDERED: ENOXAPARIN 40 MG/0.4 ML SYRINGE SQ SCH (09:00)
[2020-08-07] MEDS: POTASSIUM CHLORIDE ER 20 MEQ TAB.ER PO SCH (09:20)
[2020-08-07] MEDS: MAGNESIUM OXIDE 400 MG TAB PO SCH (09:20)
[2020-08-07] MEDS: ISOSORBIDE MONONITRATE ER 30 MG TAB.ER.24H PO SCH (09:20)
[2020-08-07] MEDS: FERROUS SULFATE 325 MG TAB PO SCH (09:21)
[2020-08-07] MEDS: FOLIC ACID 1 MG TAB PO SCH (09:21)
[2020-08-07] MEDS: hydrALAZINE HCL 25 MG TAB PO SCH ×3 (09:21→22:01)
[2020-08-07] MEDS: METOPROLOL TARTRATE 25 MG TAB PO SCH (09:21)
[2020-08-07] MEDS: FAMOTIDINE 20 MG TAB PO SCH (09:21)
[2020-08-07] MEDS: allopurinoL 100 MG TAB PO SCH ×2 (09:21→22:01)
[2020-08-07 10:19] LABS: African American GFR (CKD) 10.6 (60.0-200.0); Albumin 2.5 g/dL (3.80-4.90); Anion Gap 7.6 mmol/L (4.00-12.00); BUN/Creat Ratio 8.6 Ratio (12.00-20.00); Calcium 7.5 mg/dL (8.7-10.3); Carbon Dioxide 17.4 mmol/L (21.6-31.8); Globulin 2.5 g/dL (1.6-3.3); Non-African American GFR(CKD) 9.1 (60.0-200.0); Total Bilirubin 0.3 mg/dL (0.3-1.2)
--- NOTE | 2020-08-07 12:19 | PN ---
PROGRESS NOTE Patient is seen for followup for acute kidney injury. She was admitted to the hospital with weakness, not feeling well. Patient has underlying renal failure with previous creatinine of about 1.5-1.4 mg/dL secondary to IgA nephropathy. Status post kidney biopsy in November of 2018 and status post trial of steroids. Serum creatinine on this admission was about 5. Patient is currently maintained on IV fluids. Her creatinine has not improved, but slightly. It came down to 5.0 from 5.68 on initial admission. Patient was significantly acidotic and anemic with a hemoglobin of 6.9. She has been transfused packed RBCs. Patient is scheduled for paracentesis as well. PHYSICAL EXAMINATION: On examination today, blood pressure is 170/92, heart rate 80 per minute, she is afebrile. Examination of the heart S1, S2. Examination of the lungs, bilateral breath sounds are heard. Abdomen is soft, nontender. Examination of the lower extremities shows edema 1+ bilaterally. EBD SPECIAL EDUCATION TEACHER exam grossly intact. Patient does have significant ascites. LABS: Show sodium 142, potassium 4.0, chloride 117, CO2 is 17.4, BUN 43, creatinine 5.0, hemoglobin 8.0 g/dL. ASSESSMENT: 1. Acute kidney injury, prerenal currently slightly improved with IV hydration. Check accurate I's and O's for urine output measurements. I doubt hepatorenal syndrome unless patient is severely oliguric. Renal function may improve further after paracentesis. 2. Hypertension, uncontrolled. Add Coreg. 3. Chronic kidney disease secondary to IgA nephropathy, nephrosclerosis with previous creatinine 1.4-1.5 mg/dL with history of kidney biopsy November of 2018 and status post trial of steroids. 4. Severe metabolic acidosis, not gap non gap associated with renal failure, maintained on IV bicarb and improving. 5. Anemia, rule out GI bleed. 6. Hypertension controlled. PLAN: Add Coreg. Continue with IV fluids and check accurate I's and O's and repeat labs in a.m. MMODL / IJN: [id number] /
--- NOTE | 2020-08-07 12:29 | P.CONS ---
History of Present Illness - Reason for Consult Consult date: 08/06/20 Ascites Requesting physician: Kel Mason - Chief Complaint Abdominal distention - History of Present Illness 55-year-old female with a medical history significant for CHF, COPD, GERD, hypertension, alcohol abuse, cirrhosis of the liver and prior history of hepatitis C treated 15 years ago with antiviral therapy who presented to the hospital due to increasing abdominal ascites. The patient reports increasing distention of her abdomen. She has not required paracentesis in the past year but as previously had a paracentesis performed. The patient had a screening for varices with EGD in 02/27/2020 with findings of antral gastritis with no varices. She denies any signs or symptoms of GI bleeding. She is on diuretic therapy with Lasix at home. She was found to have an acute rise in her creatinine on presentation with creatinine 5.68, hemoglobin 8, total bilirubin 0.4, alkaline phosphatase 71, AST 25 and ALT 8. Her hemoglobin was suppressed on presentation and she did have transfusion of packed red blood cells. On questioning she does report not maintaining a sodium restricted diet. Review of Systems REVIEW OF SYSTEMS: CONSTITUTIONAL: Denies any fevers, chills, weight change or fatigue. CARDIOVASCULAR: Denies any chest pain, palpitations high or low blood pressures RESPIRATORY: Denies any shortness of breath, hemoptysis or cough. GENITOURINARY: No dysuria or hematuria. MUSCULOSKELETAL: No weakness reported. SKIN: Denies any new rashes or lesions, jaundice or pallor. PSYCHIATRIC: Denies any depression or anxiety. NEUROLOGY: Denies headache, denies any new focal deficits. EARS/NOSE/THROAT: No recent hearing change, congestion, nasal discharge or sore throat. EYES: No pain in eyes, discharge or change in vision. GASTROINTESTINAL: As per HPI. Past Medical History Past Medical History: Heart Failure, COPD, GERD/Reflux, Hypertension, Liver Disease, Renal Disease Additional Past Medical History / Comment(s): admitted to [facility] on 03/02/19 with gastroenteritis/nausea/vomiting/diarrhea/abdominal pain/ascities/UTI and had negative Cdiff. Other hx: Hep C, alcoholic liver cirrhosis, portal HTN, abdominal ascities, IGA nephropathy, thromobocytopenia, CKD stage IV, anemia, severe protein calorie malnutrition, frequent diarrhea, low back pain from an injury. History of Any Multi-Drug Resistant Organisms: None Reported Past Surgical History: Tubal Ligation Additional Past Surgical History / Comment(s): multiple Paracentesis Past Anesthesia/Blood Transfusion Reactions: No Reported Reaction Additional Past Anesthesia/Blood Transfusion Reaction / Comm: claustrophobia Past Psychological History: Anxiety, Depression Additional Psychological History / Comment(s): Pt resides with significant other in an apartment. She does not drive. She is otherwise independent. Smoking Status: Current every day smoker Past Alcohol Use History: Abuse Additional Past Alcohol Use History / Comment(s): Started smoking at age 12, used to smoke 1 ppd but has cut down to 1/2 ppd. Pt quit drinking July 2018, used to drink rum & beer-8 beers daily & liquor also daily Past Drug Use History: None Reported - Past Family History Father History Unknown: Yes Family Medical History: Cancer Additional Family Medical History / Comment(s): Unk type of cancer. Father is . Mother History Unknown: Yes Family Medical History: AFIB, Congestive Heart Failure (CHF), Deep Vein Thrombosis (DVT), Myocardial Infarction (SC), Seizure Disorder Additional Family Medical History / Comment(s): Mother had a SC at the age of 52 yrs. She is . Poss DVT. Medications and Allergies Home Medications Medication Instructions Recorded Confirmed Type ALPRAZolam [Xanax] 0.25 mg PO BID PRN 09/13/18 08/05/20 History Metoprolol Tartrate 25 mg PO DAILY 09/13/18 08/05/20 History HYDROcodone/APAP 10-325MG [[place] 1 tab PO BID PRN 11/21/18 08/05/20 History 10-325] Pantoprazole Sodium [Protonix] 40 mg PO DAILY 01/12/19 08/05/20 History allopurinoL [Zyloprim] 100 mg PO BID 01/12/19 08/05/20 History Folic Acid 0.4 mg PO DAILY 07/08/19 08/05/20 History Magnesium Oxide 400 mg PO DAILY 07/08/19 08/05/20 History Furosemide [Lasix] 40 mg PO DAILY 02/25/20 08/05/20 History Ergocalciferol [Vitamin D2 50,000 unit PO MO 03/10/20 08/05/20 History (DRISDOL)] Ferrous Sulfate [Iron (65 MG 325 mg PO DAILY 03/10/20 08/05/20 History Elemental)] Levothyroxine Sodium [Synthroid] 50 mcg PO DAILY 03/10/20 08/05/20 History hydrALAZINE HCL [Apresoline] 25 mg PO TID tab 03/12/20 08/05/20 Rx Isosorbide Mononitrate ER [Imdur] 30 mg PO DAILY 08/05/20 08/05/20 History Potassium Chloride ER [K-Dur 20] 20 meq PO DAILY 08/05/20 08/05/20 History Allergies Allergy/AdvReac Type Severity Reaction Status Date / Time bupropion [From Wellbutrin] AdvReac seizure Verified 08/05/20 19:04 Physical Exam Vitals: Vital Signs Temp Pulse Pulse Resp BP BP Pulse Ox 08/06/20 12:50 98.4 F 73 16 170/94 08/06/20 07:59 70 08/06/20 07:48 70 08/06/20 07:23 98.2 F 72 16 189/91 99 08/06/20 01:30 98.2 F 66 29 H 142/76 100 08/06/20 00:27 99.0 F 71 18 203/97 100 08/05/20 21:56 97.7 F 74 16 193/94 100 08/05/20 19:53 97.3 F L 70 18 197/91 99 08/05/20 15:58 76 18 08/05/20 15:49 75 18 08/05/20 15:14 98.0 F 63 22 164/91 100 Intake and Output 08/05/20 08/06/20 08/06/20 22:59 06:59 14:59 Intake Total 100 200 Balance 100 200 Intake: Oral 100 200 Other: # Voids 1 3 Weight 96.615 kg 96.615 kg On physical examination, patient appears comfortable in no apparent distress. HEAD: Normocephalic, atraumatic. EYES: No scleral icterus. No conjunctival injection. MOUTH: No lesions, tongue midline. NECK: Trachea midline, no gross abnormalities. CHEST: Clear to auscultation with no wheezing or rhonchi appreciated. HEART: Regular rate and rhythm. ABDOMEN: Soft, moderately distended. Bowel sounds are positive. No organomegaly. No guarding or rigidity. EXTREMITIES: Bilateral pedal edema. SKIN: No rashes, no jaundice. NEUROLOGIC: Alert and oriented x3. No focal deficits. Results CBC & Chem 7: 08/07/20 05:33 08/07/20 05:33 Labs: Abnormal Lab Results - Last 24 Hours (Table) 08/05/20 08/05/20 08/05/20 Range/Units 15:48 15:48 15:48 WBC (3.8-10.6) k/uL RBC 2.51 L (3.80-5.40) m/uL Hgb 8.0 L (11.4-16.0) gm/dL Hct 24.0 L (34.0-46.0) % RDW 16.2 H (11.5-15.5) % Plt Count (150-450) k/uL Chloride 120 H (98-107) mmol/L Carbon Dioxide 13 L (22-30) mmol/L BUN 42 H (7-17) mg/dL Creatinine 5.68 H (0.52-1.04) mg/dL Calcium 7.8 L (8.4-10.2) mg/dL Total Protein 5.7 L (6.3-8.2) g/dL Albumin 2.4 L (3.5-5.0) g/dL Urine Appearance Cloudy H (Clear) Urine Protein 3+ H (Negative) Urine Glucose (UA) 1+ H (Negative) Urine Blood Large H (Negative) Urine RBC >182 H (0-5) /hpf Urine WBC 8 H (0-5) /hpf Urine Bacteria Rare H (None) /hpf Hyaline Casts 24 H (0-2) /lpf Urine Mucus Rare H (None) /hpf 08/06/20 08/06/20 Range/Units 11:29 14:30 WBC 3.5 L (3.8-10.6) k/uL RBC 2.24 L (3.80-5.40) m/uL Hgb 6.9 L* (11.4-16.0) gm/dL Hct 21.4 L (34.0-46.0) % RDW 16.3 H (11.5-15.5) % Plt Count 84 L (150-450) k/uL Chloride (98-107) mmol/L Carbon Dioxide (22-30) mmol/L BUN (7-17) mg/dL Creatinine (0.52-1.04) mg/dL Calcium (8.4-10.2) mg/dL Total Protein (6.3-8.2) g/dL Albumin (3.5-5.0) g/dL Urine Appearance (Clear) Urine Protein (Negative) Urine Glucose (UA) (Negative) Urine Blood (Negative) Urine RBC (0-5) /hpf Urine WBC (0-5) /hpf Urine Bacteria (None) /hpf Hyaline Casts (0-2) /lpf Urine Mucus (None) /hpf CT scan - abdomen: report reviewed (Computed tomography scan of the abdomen with findings of a cirrhotic-appearing liver, splenomegaly as well as ascites and subcutaneous edema.) Assessment and Plan (1) Cirrhosis Narrative/Plan: 55-year-old female with multiple medical comorbidities including prior history of hepatitis C treated with antiviral therapy 15 years ago and cirrhosis of the liver with ascites previously requiring paracentesis who presented to the hospital due to increasing abdominal distention. The patient's last paracentesis was over 1 year ago. She takes Lasix 40 mg daily at home. She did have EGD in 02/2020 with no varices seen and evidence of gastritis. She is currently not adherent to a sodium restricted diet. Current Visit: No Status: Acute Code(s): K74.60 - UNSPECIFIED CIRRHOSIS OF LIVER SNOMED Code(s): 97850479 (2) Abdominal ascites Current Visit: Yes Status: Acute Code(s): R18.8 - OTHER ASCITES SNOMED Code(s): 411815667 (3) Acute kidney failure Current Visit: Yes Status: Acute Code(s): N17.9 - ACUTE KIDNEY FAILURE, UNSPECIFIED SNOMED Code(s): 48908303 (4) Gastritis Current Visit: No Status: Acute Code(s): K29.70 - GASTRITIS, UNSPECIFIED, WITHOUT BLEEDING SNOMED Code(s): 7300601 Plan: Supportive care Okay for sodium restricted, renal diet Extensive discussion with the patient regarding dietary modifications and sodium restriction Nephrology service following the patient, defer diuretic management service Paracentesis ordered Continue monitor CBC, BMP, LFTs Thank you for allowing us to participate in the care of the patient we will continue to follow
--- NOTE | 2020-08-07 12:34 | P.PN ---
Subjective Progress Note Date: 08/07/20 CHIEF COMPLAINT: Abdominal pain HISTORY OF PRESENT ILLNESS: Patient is being followed for her abdominal pain. She has a large abdominal ascites. She is scheduled for paracentesis today. She reports having bowel movements. She's followed by nephrology for her acute kidney injury. Creatinine is down from 5.3-5.0. She was seen by urology in the recommending cystoscopy outpatient for further evaluation for hematuria. She status post 1 unit of blood. Hgb has gone up from 6.9 to 8. She's afebrile. WBC is 3.7 platelets are 75. She does report having bowel movement. Stool is loose but more formed than admission. PHYSICAL EXAM: VITAL SIGNS: Reviewed. GENERAL: Well-developed in no acute distress. HEENT: No sclera icterus. Extraocular movements grossly intact. Moist buccal mucosa. Head is atraumatic, normocephalic. ABDOMEN: Distended diffuse tenderness positive fluid wave NEUROLOGIC: Alert and oriented. Cranial nerves II through XII grossly intact. ASSESSMENT: 1. Abdominal pain likely due to abdominal ascites. Possible ileus. No evidence of bowel obstruction on CAT scan 2. History of liver cirrhosis with abdominal ascites requiring paracentesis. Patient scheduled for paracentesis today 3. Anemia which is multifactorial 4. Hematuria evaluated by urology 5. Chronic kidney disease stage IV PLAN: -Patient scheduled for paracentesis today -No surgical intervention planned -Continue regular, renal diet Physician Psychic Reader note has been reviewed by physician. Signing provider agrees with the documented findings, assessment, and plan of care. Objective - Vital Signs Vital signs: Vital Signs Temp 98.3 F 08/07/20 08:00 Pulse 80 08/07/20 08:00 Resp 16 08/07/20 08:00 BP 170/92 08/07/20 08:00 Pulse Ox 98 08/07/20 02:44 Intake & Output 08/06/20 08/07/20 08/07/20 18:59 06:59 18:59 Intake Total 200 310 Balance 200 310 Intake: Oral 200 Blood Product 0 310 Rc As-1 Unit 0 310 [id number] Other: # Voids 3 1 - Labs CBC & Chem 7: 08/07/20 05:33 08/07/20 05:33 Labs: Abnormal Lab Results - Last 24 Hours (Table) 08/06/20 08/06/2020 Range/Units 11:29 11:29 11:29 WBC 3.5 L (3.8-10.6) k/uL RBC 2.24 L (3.80-5.40) m/uL Hgb 6.9 L* (11.4-16.0) gm/dL Hct 21.4 L (34.0-46.0) % RDW 16.3 H (11.5-15.5) % Plt Count (150-450) k/uL Chloride 118 H (96-109) mmol/L Carbon Dioxide 17.0 L (21.6-31.8) mmol/L BUN 44.0 H (9.0-27.0) mg/dL Creatinine 5.3 H (0.6-1.5) mg/dL Est GFR (CKD-EPI)AfAm 9.8 L (60.0-200.0) Est GFR (CKD-EPI)NonAf 8.5 L (60.0-200.0) BUN/Creatinine Ratio 8.30 L (12.00-20.00) Ratio Calcium 7.6 L (8.7-10.3) mg/dL TIBC 208 L (228-460) ug/dL Total Bilirubin 0.2 L (0.3-1.2) mg/dL Total Protein 4.8 L (6.2-8.2) g/dL Albumin 2.40 L (3.80-4.90) g/dL Albumin/Globulin Ratio 1.00 L (1.60-3.17) g/dL Crossmatch 08/06/20 08/06/20 08/07/20 Range/Units 14:30 16:38 05:33 WBC 3.7 L (3.8-10.6) k/uL RBC 2.57 L (3.80-5.40) m/uL Hgb 8.0 L (11.4-16.0) gm/dL Hct 24.9 L (34.0-46.0) % RDW 15.9 H (11.5-15.5) % Plt Count 84 L 75 L (150-450) k/uL Chloride (96-109) mmol/L Carbon Dioxide (21.6-31.8) mmol/L BUN (9.0-27.0) mg/dL Creatinine (0.6-1.5) mg/dL Est GFR (CKD-EPI)AfAm (60.0-200.0) Est GFR (CKD-EPI)NonAf (60.0-200.0) BUN/Creatinine Ratio (12.00-20.00) Ratio Calcium (8.7-10.3) mg/dL TIBC (228-460) ug/dL Total Bilirubin (0.3-1.2) mg/dL Total Protein (6.2-8.2) g/dL Albumin (3.80-4.90) g/dL Albumin/Globulin Ratio (1.60-3.17) g/dL Crossmatch See Detail 08/07/20 Range/Units 05:33 WBC (3.8-10.6) k/uL RBC (3.80-5.40) m/uL Hgb (11.4-16.0) gm/dL Hct (34.0-46.0) % RDW (11.5-15.5) % Plt Count (150-450) k/uL Chloride 117 H (96-109) mmol/L Carbon Dioxide 17.4 L (21.6-31.8) mmol/L BUN 43.0 H (9.0-27.0) mg/dL Creatinine 5.0 H (0.6-1.5) mg/dL Est GFR (CKD-EPI)AfAm 10.6 L (60.0-200.0) Est GFR (CKD-EPI)NonAf 9.1 L (60.0-200.0) BUN/Creatinine Ratio 8.60 L (12.00-20.00) Ratio Calcium 7.5 L (8.7-10.3) mg/dL TIBC (228-460) ug/dL Total Bilirubin (0.3-1.2) mg/dL Total Protein 5.0 L (6.2-8.2) g/dL Albumin 2.50 L (3.80-4.90) g/dL Albumin/Globulin Ratio 1.00 L (1.60-3.17) g/dL Crossmatch
--- NOTE | 2020-08-07 16:29 | US ---
Ultrasound-guided paracentesis. DATE OF EXAM: 08/07/2020 CLINICAL HISTORY: Ascites The procedure was discussed with the patient. The risks, complications, benefits, and alternatives we re discussed and any questions were answered. Informed consent was obtained. The patient was placed s upine on the ultrasound table and prepped and draped in the usual sterile fashion. All elements of maximal barrier technique were utilized. Under ultrasound guidance, access into the right lower quadrant was obtained, via the paracentesis catheter system and direct ultrasound guidanc e. Approximately 8 liters of straw-colored fluid was removed. The patient was stable throughout the proc edure and remained stable upon discharge from Department of Radiology. Sample sent to pathology for a nalysis. IMPRESSION: Successful paracentesis under ultrasound guidance.
[2020-08-07] MEDS: DEXTROSE 5% IN WATER 1,000 ML with SODIUM BICARB (1 MEQ/ML) 150 ML IV SCH (17:04)
--- NOTE | 2020-08-07 18:25 | P.PN ---
Subjective Progress Note Date: 08/07/20 This is a 55-year-old female patient who presented to the ER with complaints of increased abdominal ascites. Patient has a known past medical history of liver cirrhosis in which she has required paracentesis is in the past. Per patient she has not received one in over a year but has not followed up with GI services. Upon admission patient was found to be in acute kidney failure with creatinine elevated at 5.68 and bun 42. Patient reports she has not been eating well and has been nauseated due to the abdominal ascites. Patient does reports she has been urinating. Additional medical history includes heart failure, COPD, GERD, essential hypertension and EtOH history. Patient denies any current alcohol use. Chest x-ray was completed showing some mild strandy bibasilar atelectasis. No acute process otherwise seen. KUB x-ray completed showing bowel gas pattern is nonspecific this could be part generalized ileus enters or early developing small bowel obstruction. CT of abdomen and pelvis completed showing moderately large amount of abdominal ascites unchanged subcutaneous edema around the abdomen unchanged irregular relatively small liver consistent with cirrhosis mild splenomegaly unchanged. At this time nephrology and GI services have been consulted. Patient also positive for blood in her urine which has been consistent with past urinary analysis. Patient was referred to neurology services by PCP but states she has not been able to see urologist will consult urology during inpatient stay. At this time patient denies any chest pain. Patient reports some shortness of breath. Patient denies nausea vomiting or diarrhea at this time. Patient denies any urinary burning or frequency On 08/07/2020 patient was seen and examined on the medical floor she is alert and oriented 3 in no apparent distress she is complaining of abdominal pain and distention otherwise she denies any complaints there is no fever or chills no headache or dizziness no chest pain no shortness of breath cough no nausea or vomiting no diarrhea no blood in the stools and no urinary symptoms Objective - Vital Signs Vital signs: Vital Signs Temp 98.7 F 08/07/20 12:50 Pulse 74 08/07/20 12:50 Resp 14 08/07/20 12:50 BP 159/83 08/07/20 12:50 Pulse Ox 98 08/07/20 12:50 Intake & Output 08/06/20 08/07/20 08/07/20 18:59 06:59 18:59 Intake Total 200 310 480 Balance 200 310 480 Intake: Intake, IV Titration 480 Amount Dextrose 5% in Water 1, 480 000 ml @ 80 mls/hr IV . [id number] CORY with Sodium Bicarb (1 Meq/ml) 150 ml Rx#:[id number] Oral 200 Blood Product 0 310 Rc As-1 Unit 0 310 [id number] Other: # Voids 3 1 - Exam Head normocephalic Neck supple Lungs clear to auscultation bilaterally no wheezing or crackles Heart regular rate and rhythm S1-S2, no rub or gallop Abdomen is is rounded ascites noted Extremities no edema Neuro alert and orientated to 3 - Labs CBC & Chem 7: 08/07/20 05:33 08/07/20 05:33 Labs: Abnormal Lab Results - Last 24 Hours (Table) 08/06/20 08/06/20 08/06/20 Range/Units 11:29 11:29 14:30 WBC (3.8-10.6) k/uL RBC (3.80-5.40) m/uL Hgb (11.4-16.0) gm/dL Hct (34.0-46.0) % RDW (11.5-15.5) % Plt Count 84 L (150-450) k/uL Chloride 118 H (96-109) mmol/L Carbon Dioxide 17.0 L (21.6-31.8) mmol/L BUN 44.0 H (9.0-27.0) mg/dL Creatinine 5.3 H (0.6-1.5) mg/dL Est GFR (CKD-EPI)AfAm 9.8 L (60.0-200.0) Est GFR (CKD-EPI)NonAf 8.5 L (60.0-200.0) BUN/Creatinine Ratio 8.30 L (12.00-20.00) Ratio Calcium 7.6 L (8.7-10.3) mg/dL TIBC 208 L (228-460) ug/dL Total Bilirubin 0.2 L (0.3-1.2) mg/dL Total Protein 4.8 L (6.2-8.2) g/dL Albumin 2.40 L (3.80-4.90) g/dL Albumin/Globulin Ratio 1.00 L (1.60-3.17) g/dL Crossmatch 08/06/20 08/07/20 08/07/20 Range/Units 16:38 05:33 05:33 WBC 3.7 L (3.8-10.6) k/uL RBC 2.57 L (3.80-5.40) m/uL Hgb 8.0 L (11.4-16.0) gm/dL Hct 24.9 L (34.0-46.0) % RDW 15.9 H (11.5-15.5) % Plt Count 75 L (150-450) k/uL Chloride 117 H (96-109) mmol/L Carbon Dioxide 17.4 L (21.6-31.8) mmol/L BUN 43.0 H (9.0-27.0) mg/dL Creatinine 5.0 H (0.6-1.5) mg/dL Est GFR (CKD-EPI)AfAm 10.6 L (60.0-200.0) Est GFR (CKD-EPI)NonAf 9.1 L (60.0-200.0) BUN/Creatinine Ratio 8.60 L (12.00-20.00) Ratio Calcium 7.5 L (8.7-10.3) mg/dL TIBC (228-460) ug/dL Total Bilirubin (0.3-1.2) mg/dL Total Protein 5.0 L (6.2-8.2) g/dL Albumin 2.50 L (3.80-4.90) g/dL Albumin/Globulin Ratio 1.00 L (1.60-3.17) g/dL Crossmatch See Detail Assessment and Plan Assessment: 1. Abdominal ascites secondary to liver cirrhosis. GI services have been co nsulted 2. Acute kidney injury. Creatinine elevated at 5.6 and bun 42 nephrology services have been consulted. Patient started on sodium bicarbonate drip per nephrology 3. Anemia of chronic disease 4. History of COPD 5. History of hepatitis C 6. History of chronic pain 7. Essential hypertension 8. Blood in urine. Urology consult placed DVT prophylaxis Lovenox. GI prophylaxis Pepcid GI, nephrology and urology service is consulted, awaiting recommendation Awaiting possible paracentesis
[2020-08-07 19:42] LABS: Appearance,BF Hazy; Nucleated Cells, Body Fluid 50 /uL; RBC, Body Fluid 100 /uL
[2020-08-07 20:25] LABS: Mononuclear WBC,Body Fluid 85 %; Polynuclear WBC,Body Fluid 15 %; Total Cells Counted,Body Fluid 100
[2020-08-08] MEDS: ALPRAZolam 0.25 MG TAB PO PRN ×2 (00:44→23:21)
[2020-08-08] MEDS: HYDROcodone/APAP 10-325MG 1 EACH TAB PO PRN ×2 (03:16→09:26)
[2020-08-08 03:37] LABS: Albumin, Fluid Source Ascites
[2020-08-08] MEDS: LEVOTHYROXINE 50 MCG TAB PO SCH (05:40)
--- NOTE | 2020-08-08 06:51 | P.PN ---
Subjective Progress Note Date: 08/07/20 Principal diagnosis: decompensated cirrhosis, ascites patient seen in bed in no acute events overnight. She is status post paracentesis with 8 liters removed. No abdominal pain reported. Objective - Vital Signs Vital signs: Vital Signs Temp 98.7 F 08/07/20 12:50 Pulse 74 08/07/20 12:50 Resp 14 08/07/20 12:50 BP 159/83 08/07/20 12:50 Pulse Ox 98 08/07/20 12:50 Intake & Output 08/06/20 08/07/20 08/07/20 18:59 06:59 18:59 Intake Total 200 310 480 Balance 200 310 480 Intake: Intake, IV Titration 480 Amount Dextrose 5% in Water 1, 480 000 ml @ 80 mls/hr IV . [id number] CORY with Sodium Bicarb (1 Meq/ml) 150 ml Rx#:[id number] Oral 200 Blood Product 0 310 Rc As-1 Unit 0 310 [id number] Other: # Voids 3 1 - Exam On physical examination, patient appears comfortable in no apparent distress. HEAD: Normocephalic, atraumatic. EYES: No scleral icterus. No conjunctival injection. MOUTH: No lesions, tongue midline. NECK: Trachea midline, no gross abnormalities. ABDOMEN: Soft, minimally distended. Bowel sounds are positive. No organomegaly. No guarding or rigidity. EXTREMITIES: No pedal edema. SKIN: No rashes, no jaundice. NEUROLOGIC: Alert and oriented x3. No focal deficits. - Labs CBC & Chem 7: 08/07/20 05:33 08/07/20 05:33 Labs: Abnormal Lab Results - Last 24 Hours (Table) 08/06/20 08/06/20 08/06/20 Range/Units 11:29 11:29 14:30 WBC (3.8-10.6) k/uL RBC (3.80-5.40) m/uL Hgb (11.4-16.0) gm/dL Hct (34.0-46.0) % RDW (11.5-15.5) % Plt Count 84 L (150-450) k/uL Chloride 118 H (96-109) mmol/L Carbon Dioxide 17.0 L (21.6-31.8) mmol/L BUN 44.0 H (9.0-27.0) mg/dL Creatinine 5.3 H (0.6-1.5) mg/dL Est GFR (CKD-EPI)AfAm 9.8 L (60.0-200.0) Est GFR (CKD-EPI)NonAf 8.5 L (60.0-200.0) BUN/Creatinine Ratio 8.30 L (12.00-20.00) Ratio Calcium 7.6 L (8.7-10.3) mg/dL TIBC 208 L (228-460) ug/dL Total Bilirubin 0.2 L (0.3-1.2) mg/dL Total Protein 4.8 L (6.2-8.2) g/dL Albumin 2.40 L (3.80-4.90) g/dL Albumin/Globulin Ratio 1.00 L (1.60-3.17) g/dL Crossmatch 08/06/20 08/07/20 08/07/20 Range/Units 16:38 05:33 05:33 WBC 3.7 L (3.8-10.6) k/uL RBC 2.57 L (3.80-5.40) m/uL Hgb 8.0 L (11.4-16.0) gm/dL Hct 24.9 L (34.0-46.0) % RDW 15.9 H (11.5-15.5) % Plt Count 75 L (150-450) k/uL Chloride 117 H (96-109) mmol/L Carbon Dioxide 17.4 L (21.6-31.8) mmol/L BUN 43.0 H (9.0-27.0) mg/dL Creatinine 5.0 H (0.6-1.5) mg/dL Est GFR (CKD-EPI)AfAm 10.6 L (60.0-200.0) Est GFR (CKD-EPI)NonAf 9.1 L (60.0-200.0) BUN/Creatinine Ratio 8.60 L (12.00-20.00) Ratio Calcium 7.5 L (8.7-10.3) mg/dL TIBC (228-460) ug/dL Total Bilirubin (0.3-1.2) mg/dL Total Protein 5.0 L (6.2-8.2) g/dL Albumin 2.50 L (3.80-4.90) g/dL Albumin/Globulin Ratio 1.00 L (1.60-3.17) g/dL Crossmatch See Detail Assessment and Plan (1) Cirrhosis Narrative/Plan: 55-year-old female with multiple medical comorbidities including prior history of hepatitis C treated with antiviral therapy 15 years ago and cirrhosis of the liver with ascites previously requiring paracentesis who presented to the hospital due to increasing abdominal distention. The patient's last paracentesis was over 1 year ago. She takes Lasix 40 mg daily at home. She did have EGD in 02/2020 with no varices seen and evidence of gastritis. She is currently not adherent to a sodium restricted diet. Current Visit: No Status: Acute Code(s): K74.60 - UNSPECIFIED CIRRHOSIS OF LIVER SNOMED Code(s): 84784465 (2) Abdominal ascites Current Visit: Yes Status: Acute Code(s): R18.8 - OTHER ASCITES SNOMED Code(s): 180878396 (3) Acute kidney failure Current Visit: Yes Status: Acute Code(s): N17.9 - ACUTE KIDNEY FAILURE, UNSPECIFIED SNOMED Code(s): 47689934 (4) Gastritis Current Visit: No Status: Acute Code(s): K29.70 - GASTRITIS, UNSPECIFIED, WITHOUT BLEEDING SNOMED Code(s): 1432326 Plan: Supportive care Okay for sodium restricted, renal diet Extensive discussion with the patient regarding dietary modifications and sodium restriction Nephrology service following the patient, defer diuretic management service Paracentesis ordered with 8 L of ascitic fluid removed Continue monitor CBC, BMP, LFTs Thank you for allowing us to participate in the care of the patient we will continue to follow
[2020-08-08 08:26] LABS: Basophils % (A) 1 %; Eosinophils # (A) 0.1 k/uL (0-0.7); Eosinophils % (A) 3 %; HCT 23.1 % (34.0-46.0); HGB 7.6 gm/dL (11.4-16.0); Hypochromasia Slight; Lymphocytes # (A) 1.1 k/uL (1.0-4.8); Lymphocytes % (A) 31 %; MCH 31.1 pg (25.0-35.0); MCHC 32.8 g/dL (31.0-37.0); MCV 94.8 fL (80.0-100.0); Mean Platelet Volume 8.8; Monocytes # (A) 0.3 k/uL (0-1.0); Monocytes % (A) 9 %; Neutrophils # (A) 2.1 k/uL (1.3-7.7); Neutrophils % (A) 56 %; Poikilocytosis Slight; RBC 2.44 m/uL (3.80-5.40); RDW 15.9 % (11.5-15.5); WBC 3.7 k/uL (3.8-10.6)
[2020-08-08] MEDS: FOLIC ACID 1 MG TAB PO SCH (09:23)
[2020-08-08] MEDS: allopurinoL 100 MG TAB PO SCH ×2 (09:23→19:57)
[2020-08-08] MEDS: ISOSORBIDE MONONITRATE ER 30 MG TAB.ER.24H PO SCH (09:23)
[2020-08-08] MEDS: FAMOTIDINE 20 MG TAB PO SCH (09:23)
[2020-08-08] MEDS: hydrALAZINE HCL 25 MG TAB PO SCH ×3 (09:23→19:57)
[2020-08-08] MEDS: MAGNESIUM OXIDE 400 MG TAB PO SCH (09:24)
[2020-08-08] MEDS: FERROUS SULFATE 325 MG TAB PO SCH (09:25)
[2020-08-08] MEDS: ENOXAPARIN 30 MG/0.3 ML SYRINGE SQ SCH (09:25)
[2020-08-08] MEDS: PANTOPRAZOLE 40 MG TABLET PO SCH (09:26)
[2020-08-08] MEDS: METOPROLOL TARTRATE 25 MG TAB PO SCH (10:04)
[2020-08-08] MEDS: POTASSIUM CHLORIDE ER 20 MEQ TAB.ER PO SCH (10:04)
[2020-08-08] MEDS: DEXTROSE 5% IN WATER 1,000 ML with SODIUM BICARB (1 MEQ/ML) 150 ML IV SCH ×2 (10:11→20:19)
[2020-08-08 11:17] LABS: Albumin 2.2 g/dL (3.80-4.90); Anion Gap 6.6 mmol/L (4.00-12.00); BUN/Creat Ratio 8.67 Ratio (12.00-20.00); Calcium 7.3 mg/dL (8.7-10.3); Carbon Dioxide 18.4 mmol/L (21.6-31.8); Globulin 2.2 g/dL (1.6-3.3); Non-African American GFR(CKD) 10.4 (60.0-200.0); Potassium 3.7 mmol/L (3.5-5.5); Total Bilirubin 0.3 mg/dL (0.2-1.2); Total Protein 4.4 g/dL (6.2-8.2)
--- NOTE | 2020-08-08 11:33 | P.PN ---
Subjective Progress Note Date: 08/08/20 CHIEF COMPLAINT: Abdominal pain HISTORY OF PRESENT ILLNESS: Patient is being followed for her abdominal pain. She had large abdominal ascites. Patient is status post paracentesis with 8 L removed. Fluid cultures pending. She reports improvement in her abdominal pain. She did report loose stool yesterday. She's followed by nephrology for her acute kidney injury. Creatinine is 4.5. She was seen by urology in the recommending cystoscopy outpatient for further evaluation for hematuria. Afebrile. WBC 3.7 Hgb 7.6 PHYSICAL EXAM: VITAL SIGNS: Reviewed. GENERAL: Well-developed in no acute distress. HEENT: No sclera icterus. Extraocular movements grossly intact. Moist buccal mucosa. Head is atraumatic, normocephalic. ABDOMEN: Decrease in abdominal distention. Nontender with palpation. Less ascites present NEUROLOGIC: Alert and oriented. Cranial nerves II through XII grossly intact. ASSESSMENT: 1. Abdominal pain likely due to abdominal ascites. Possible ileus. No evidence of bowel obstruction on CAT scan 2. History of liver cirrhosis with abdominal ascites requiring paracentesis. Patient scheduled for paracentesis today 3. Anemia which is multifactorial 4. Hematuria evaluated by urology 5. Chronic kidney disease stage IV PLAN: -No surgical intervention planned -Continue supportive care -Continue regular, renal diet, sodium restriction Physician Asp Net Developer note has been reviewed by physician. Signing provider agrees with the documented findings, assessment, and plan of care. Objective - Vital Signs Vital signs: Vital Signs Temp 98.7 F 08/08/20 07:30 Pulse 76 08/08/20 07:30 Resp 14 08/08/20 07:30 BP 183/99 08/08/20 07:30 Pulse Ox 94 L 08/08/20 03:04 Intake & Output 08/07/20 08/08/20 08/08/20 18:59 06:59 18:59 Intake Total 480 200 Balance 480 200 Intake: Intake, IV Titration 480 Amount Dextrose 5% in Water 1, 480 000 ml @ 80 mls/hr IV . [id number] CORY with Sodium Bicarb (1 Meq/ml) 150 ml Rx#:[id number] Oral 200 Other: Voiding Method Toilet # Voids 1 - Labs CBC & Chem 7: 08/08/20 07:18 08/08/20 07:18 Labs: Abnormal Lab Results - Last 24 Hours (Table) 08/08/20 08/08/20 Range/Units 07:18 07:18 WBC 3.7 L (3.8-10.6) k/uL RBC 2.44 L (3.80-5.40) m/uL Hgb 7.6 L (11.4-16.0) gm/dL Hct 23.1 L (34.0-46.0) % RDW 15.9 H (11.5-15.5) % Chloride 114 H (96-109) mmol/L Carbon Dioxide 18.4 L (21.6-31.8) mmol/L BUN 39.0 H (9.0-27.0) mg/dL Creatinine 4.5 H (0.6-1.5) mg/dL Est GFR (CKD-EPI)AfAm 12.0 L (60.0-200.0) Est GFR (CKD-EPI)NonAf 10.4 L (60.0-200.0) BUN/Creatinine Ratio 8.67 L (12.00-20.00) Ratio Calcium 7.3 L (8.7-10.3) mg/dL Total Protein 4.4 L (6.2-8.2) g/dL Albumin 2.20 L (3.80-4.90) g/dL Albumin/Globulin Ratio 1.00 L (1.60-3.17) g/dL Microbiology - Last 24 Hours (Table) 08/07/20 15:12 Gram Stain - Preliminary Paracentesis Fluid Body Fluid Culture - Preliminary 08/07/20 15:12 Anaerobic Culture - Preliminary Paracentesis Fluid
--- NOTE | 2020-08-08 11:56 | P.PN ---
Subjective Progress Note Date: 08/08/20 This is a 55-year-old female patient who presented to the ER with complaints of increased abdominal ascites. Patient has a known past medical history of liver cirrhosis in which she has required paracentesis is in the past. Per patient she has not received one in over a year but has not followed up with GI services. Upon admission patient was found to be in acute kidney failure with creatinine elevated at 5.68 and bun 42. Patient reports she has not been eating well and has been nauseated due to the abdominal ascites. Patient does reports she has been urinating. Additional medical history includes heart failure, COPD, GERD, essential hypertension and EtOH history. Patient denies any current alcohol use. Chest x-ray was completed showing some mild strandy bibasilar atelectasis. No acute process otherwise seen. KUB x-ray completed showing bowel gas pattern is nonspecific this could be part generalized ileus enters or early developing small bowel obstruction. CT of abdomen and pelvis completed showing moderately large amount of abdominal ascites unchanged subcutaneous edema around the abdomen unchanged irregular relatively small liver consistent with cirrhosis mild splenomegaly unchanged. At this time nephrology and GI services have been consulted. Patient also positive for blood in her urine which has been consistent with past urinary analysis. Patient was referred to neurology services by PCP but states she has not been able to see urologist will consult urology during inpatient stay. At this time patient denies any chest pain. Patient reports some shortness of breath. Patient denies nausea vomiting or diarrhea at this time. Patient denies any urinary burning or frequency On 08/07/2020 patient was seen and examined on the medical floor she is alert and oriented 3 in no apparent distress she is complaining of abdominal pain and distention otherwise she denies any complaints there is no fever or chills no headache or dizziness no chest pain no shortness of breath cough no nausea or vomiting no diarrhea no blood in the stools and no urinary symptoms On 08/08/2020 patient is alert and oriented 3. Patient reports improvement with abdominal discomfort since paracentesis. 8 L removed. Creatinine improving to 4.5. At this time patient denies chest pain or shortness breath. Patient denies nausea vomiting or diarrhea. Patient denies any urinary burning or frequency Objective - Vital Signs Vital signs: Vital Signs Temp 98.7 F 08/08/20 07:30 Pulse 76 08/08/20 07:30 Resp 14 08/08/20 07:30 BP 183/99 08/08/20 07:30 Pulse Ox 94 L 08/08/20 03:04 Intake & Output 08/07/20 08/08/20 08/08/20 18:59 06:59 18:59 Intake Total 480 200 Output Total 500 Balance 480 -300 Intake: Intake, IV Titration 480 Amount Dextrose 5% in Water 1, 480 000 ml @ 80 mls/hr IV . [id number] CORY with Sodium Bicarb (1 Meq/ml) 150 ml Rx#:[id number] Oral 200 Output: Urine 500 Other: Voiding Method Toilet # Voids 1 - Exam Head normocephalic Neck supple Lungs clear to auscultation bilaterally no wheezing or crackles Heart regular rate and rhythm S1-S2, no rub or gallop Abdomen is is rounded ascites noted Extremities no edema Neuro alert and orientated to 3 - Labs CBC & Chem 7: 08/08/20 07:18 08/08/20 07:18 Labs: Abnormal Lab Results - Last 24 Hours (Table) 08/08/20 08/08/20 Range/Units 07:18 07:18 WBC 3.7 L (3.8-10.6) k/uL RBC 2.44 L (3.80-5.40) m/uL Hgb 7.6 L (11.4-16.0) gm/dL Hct 23.1 L (34.0-46.0) % RDW 15.9 H (11.5-15.5) % Chloride 114 H (96-109) mmol/L Carbon Dioxide 18.4 L (21.6-31.8) mmol/L BUN 39.0 H (9.0-27.0) mg/dL Creatinine 4.5 H (0.6-1.5) mg/dL Est GFR (CKD-EPI)AfAm 12.0 L (60.0-200.0) Est GFR (CKD-EPI)NonAf 10.4 L (60.0-200.0) BUN/Creatinine Ratio 8.67 L (12.00-20.00) Ratio Calcium 7.3 L (8.7-10.3) mg/dL Total Protein 4.4 L (6.2-8.2) g/dL Albumin 2.20 L (3.80-4.90) g/dL Albumin/Globulin Ratio 1.00 L (1.60-3.17) g/dL Microbiology - Last 24 Hours (Table) 08/07/20 15:12 Gram Stain - Preliminary Paracentesis Fluid Body Fluid Culture - Preliminary 08/07/20 15:12 Anaerobic Culture - Preliminary Paracentesis Fluid Assessment and Plan Assessment: 1. Abdominal ascites secondary to liver cirrhosis. Status post paracentesis with 8 L were removal. Fluid sent for cytology 2. Acute kidney injury. Creatinine elevated at 5.6 and bun 42 nephrology services have been consulted. Patient started on sodium bicarbonate drip per nephrology 3. Anemia of chronic disease 4. History of COPD 5. History of hepatitis C 6. History of chronic pain 7. Essential hypertension 8. Blood in urine. Per urology recommending outpatient cystoscopy to rule out intravascular pathology DVT prophylaxis Lovenox. GI prophylaxis Pepcid GI, nephrology and urology service is consulted, awaiting recommendations
[2020-08-08 12:33] LABS: Platelet Count 80 k/uL (150-450)
[2020-08-08 12:34] LABS: Anisocytosis (M) Present; Poikilocytosis (M) Present
--- NOTE | 2020-08-08 13:29 | PN ---
PROGRESS NOTE Patient is seen for follow up for acute kidney injury. She was admitted to the hospital with complaints of weakness and some nausea and vomiting. Patient has underlying chronic liver disease, liver cirrhosis and portal hypertension. She also has underlying chronic kidney disease secondary to IgA nephropathy and nephrosclerosis with previous creatinine at 1.4-1.5 mg/dL. She is status post trial of steroids. On admission serum creatinine was 5.6. Patient has been maintained on IV fluids and creatinine has decreased to 4.5. The patient states that she has been voiding well. Patient is status post paracentesis which was done yesterday with about 8 L of fluid removed. Blood pressure has been running on the higher side. PHYSICAL EXAMINATION: On examination today, patient denies any complaints. Blood pressure was 183/99, heart rate 76 per minute. She is afebrile. Examination of the heart S1, S2. Examination of the lungs, bilateral breath sounds are heard. Abdomen is soft, distended, obese. Exam of lower extremities shows no evidence of edema. INTERNAL INVESTIGATOR exam is grossly intact. LAB: Show sodium of 139, potassium 3.7, chloride 114, CO2 is 18.4, BUN of 39, serum creatinine 4.5, hemoglobin 7.6 g/dL. ASSESSMENT: 1. Acute kidney injury prerenal currently improving with IV hydration. 2. Chronic kidney disease with baseline creatinine 1.5-1.7 secondary to IgA nephropathy and nephrosclerosis status post trial of steroids in November of 2018. 3. Severe metabolic acidosis associated with renal failure, currently maintained on IV bicarb. 4. Anemia, possible gastrointestinal bleed. 5. Hypertension uncontrolled. PLAN: Switch metoprolol to Coreg and continue the IV bicarb for now. Repeat labs in a.m. MMODL / IJN: [id number] /
[2020-08-08] MEDS: MORPHINE SULFATE 2 MG/ML SYRINGE IVP PRN ×2 (15:07→19:57)
--- NOTE | 2020-08-08 16:13 | PN ---
PROGRESS NOTE DATE OF SERVICE: August 08, 2020 Patient is a 55-year-old pleasant white female with history of cirrhosis of the liver, admitted to the hospital with abdominal distention and ascites. She underwent large- volume paracentesis and approximately 8 L of fluid was removed. The patient is feeling much better. She denies abdominal pain. She states that she is going home tomorrow. PHYSICAL EXAMINATION: She appears comfortable. No apparent distress. Vital signs stable. Blood pressure 165/86, pulse rate 69, temperature 98. HEENT examination unremarkable. Conjunctivae pink. Sclerae anicteric. Oral cavity no lesions. Neck no JVD or lymph node enlargement. CHEST was clear to auscultation. HEART: Regular rate and rhythm. ABDOMEN: Soft. It was slightly distended. Mild ascites noted. EXTREMITIES: No pedal edema. NEURO: She is alert and oriented x3. No focal deficits. LABS: WBC 3.7, hemoglobin 7.6, platelets 80,000. BUN 39, creatinine 4.5. AST, ALT within normal limits. T- bilirubin 0.3, alkaline phosphatase 53. Ascitic fluid, albumin was less than 1 and protein was 0.79 g. IMPRESSION: 1. Decompensated cirrhosis of the liver with ascites status post large-volume paracentesis, 8 L of fluid was removed and patient clinically doing well. 2. Chronic kidney disease secondary to IgA nephropathy and nephrosclerosis. Dr. Angelo following the patient on an outpatient basis. 3. Macrocytic anemia. Clinically no evidence of active bleeding. 4. History of hypertension and hyperlipidemia. RECOMMENDATIONS: 1. Continue with a low-salt diet. 2. Symptomatic and supportive care. 3. Hold off on diuretics as per Nephrology recommendations. 4. Repeat labs in the morning and will follow with you closely. Thank you for this consultation. MMODL / IJN: [id number] /
[2020-08-08] MEDS: carvediloL 12.5 MG TAB PO SCH (17:30)
[2020-08-09] MEDS: LEVOTHYROXINE 50 MCG TAB PO SCH (05:58)
[2020-08-09] MEDS: HYDROcodone/APAP 10-325MG 1 EACH TAB PO PRN ×3 (06:03→18:23)
[2020-08-09 06:38] LABS: Anisocytosis Slight; Basophils % (A) 1 %; Eosinophils # (A) 0.1 k/uL (0-0.7); Eosinophils % (A) 3 %; HCT 24.2 % (34.0-46.0); HGB 7.8 gm/dL (11.4-16.0); Hypochromasia Slight; Lymphocytes # (A) 1.1 k/uL (1.0-4.8); Lymphocytes % (A) 29 %; MCH 30.9 pg (25.0-35.0); MCHC 32.4 g/dL (31.0-37.0); MCV 95.4 fL (80.0-100.0); Mean Platelet Volume 10.5; Monocytes # (A) 0.4 k/uL (0-1.0); Monocytes % (A) 10 %; Neutrophils # (A) 2.1 k/uL (1.3-7.7); Neutrophils % (A) 56 %; Poikilocytosis Slight; RBC 2.54 m/uL (3.80-5.40); WBC 3.8 k/uL (3.8-10.6)
[2020-08-09 06:41] LABS: Platelet Count 54 k/uL (150-450)
[2020-08-09] MEDS: POTASSIUM CHLORIDE ER 20 MEQ TAB.ER PO SCH (08:34)
[2020-08-09] MEDS: hydrALAZINE HCL 25 MG TAB PO SCH ×3 (08:34→21:39)
[2020-08-09] MEDS: carvediloL 12.5 MG TAB PO SCH ×2 (08:34→18:19)
[2020-08-09] MEDS: PANTOPRAZOLE 40 MG TABLET PO SCH (08:34)
[2020-08-09] MEDS: ISOSORBIDE MONONITRATE ER 30 MG TAB.ER.24H PO SCH (08:34)
[2020-08-09] MEDS: FERROUS SULFATE 325 MG TAB PO SCH (08:34)
[2020-08-09] MEDS: FOLIC ACID 1 MG TAB PO SCH (08:34)
[2020-08-09] MEDS: allopurinoL 100 MG TAB PO SCH ×2 (08:34→21:39)
[2020-08-09] MEDS: FAMOTIDINE 20 MG TAB PO SCH (08:35)
[2020-08-09] MEDS: MAGNESIUM OXIDE 400 MG TAB PO SCH (08:35)
[2020-08-09] MEDS: ENOXAPARIN 30 MG/0.3 ML SYRINGE SQ SCH (08:35)
[2020-08-09 09:37] LABS: ALT <8 U/L (8-44); AST 18 U/L (13-35); African American GFR (CKD) 12.3 (60.0-200.0); Alkaline Phosphatase 65 U/L (41-126); BUN/Creat Ratio 9.09 Ratio (12.00-20.00); Calcium 7.3 mg/dL (8.7-10.3); Carbon Dioxide 19.6 mmol/L (21.6-31.8); Chloride 115 mmol/L (96-109); Globulin 2.4 g/dL (1.6-3.3); Glucose 89 mg/dL (70-110); Non-African American GFR(CKD) 10.6 (60.0-200.0); Potassium 3.7 mmol/L (3.5-5.5); Sodium 141 mmol/L (135-145); Total Bilirubin 0.2 mg/dL (0.3-1.2); Total Protein 4.8 g/dL (6.2-8.2)
[2020-08-09] MEDS: MORPHINE SULFATE 2 MG/ML SYRINGE IVP PRN ×3 (09:57→21:39)
--- NOTE | 2020-08-09 09:58 | P.PN ---
Subjective Progress Note Date: 08/09/20 Principal diagnosis: Ernestine is a 55-year-old female known to us with IgA nephropathy biopsied 2019 has had a trial of prednisone. She was admitted with weakness and some nausea vomiting and diarrhea. Creatinine was 5.6 on admission he was deemed to be from volume depletion. She was given IV fluids. 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 Additionally history of COPD. Her creatinine baseline is 1.5 on 03/10/2020, came up to 5.6 on admission and is slightly better at 4.4 today In the past her creatinine was normal at 1 in 2018. A urinalysis done on 08/05/2020 shows 3+ protein and large blood greater than 182 RBCs computed tomography scan does not show any other explanation for her hematuria. It is painless Objective - Vital Signs Vital signs: Vital Signs Temp 98.8 F 08/09/20 07:00 Pulse 74 08/09/20 07:00 Resp 18 08/09/20 02:21 BP 167/81 08/09/20 07:00 Pulse Ox 98 08/09/20 07:00 Intake & Output 08/08/20 08/09/20 08/09/20 18:59 06:59 18:59 Intake Total 400 560 Output Total 500 1000 Balance -100 -440 Intake: Intake, IV Titration 160 Amount Dextrose 5% in Water 1, 160 000 ml @ 80 mls/hr IV . [id number] CORY with Sodium Bicarb (1 Meq/ml) 150 ml Rx#:[id number] Oral 400 400 Output: Urine 500 1000 Other: Voiding Method Toilet # Voids 3 2 On admission she is awake alert oriented comfortable HEENT exam no JVP No lymphadenopathy No facial asymmetry Lungs are clear to auscultation good air entry bilaterally Heart sounds are unremarkable for any murmur rub gallop Abdomen soft nontender somewhat distended Extremity exam was no edema Neurologically awake alert oriented - Labs CBC & Chem 7: 08/09/20 06:26 08/09/20 06:26 Labs: Abnormal Lab Results - Last 24 Hours (Table) 08/08/20 08/08/20 08/09/20 Range/Units 07:18 07:18 06:26 RBC 2.54 L (3.80-5.40) m/uL Hgb 7.8 L (11.4-16.0) gm/dL Hct 24.2 L (34.0-46.0) % RDW 16.0 H (11.5-15.5) % Plt Count 80 L 54 L (150-450) k/uL Chloride 114 H (96-109) mmol/L Carbon Dioxide 18.4 L (21.6-31.8) mmol/L BUN 39.0 H (9.0-27.0) mg/dL Creatinine 4.5 H (0.6-1.5) mg/dL Est GFR (CKD-EPI)AfAm 12.0 L (60.0-200.0) Est GFR (CKD-EPI)NonAf 10.4 L (60.0-200.0) BUN/Creatinine Ratio 8.67 L (12.00-20.00) Ratio Calcium 7.3 L (8.7-10.3) mg/dL Total Bilirubin (0.3-1.2) mg/dL ALT (8-44) U/L Total Protein 4.4 L (6.2-8.2) g/dL Albumin 2.20 L (3.80-4.90) g/dL Albumin/Globulin Ratio 1.00 L (1.60-3.17) g/dL 08/09/20 Range/Units 06:26 RBC (3.80-5.40) m/uL Hgb (11.4-16.0) gm/dL Hct (34.0-46.0) % RDW (11.5-15.5) % Plt Count (150-450) k/uL Chloride 115 H (96-109) mmol/L Carbon Dioxide 19.6 L (21.6-31.8) mmol/L BUN 40.0 H (9.0-27.0) mg/dL Creatinine 4.4 H (0.6-1.5) mg/dL Est GFR (CKD-EPI)AfAm 12.3 L (60.0-200.0) Est GFR (CKD-EPI)NonAf 10.6 L (60.0-200.0) BUN/Creatinine Ratio 9.09 L (12.00-20.00) Ratio Calcium 7.3 L (8.7-10.3) mg/dL Total Bilirubin 0.2 L (0.3-1.2) mg/dL ALT <8 L (8-44) U/L Total Protein 4.8 L (6.2-8.2) g/dL Albumin 2.40 L (3.80-4.90) g/dL Albumin/Globulin Ratio 1.00 L (1.60-3.17) g/dL Microbiology - Last 24 Hours (Table) 08/07/20 15:12 Gram Stain - Preliminary Paracentesis Fluid Body Fluid Culture - Preliminary Assessment and Plan Assessment: Impression 1. Acute kidney injury likely from volume depletion creatinine peaked at 5.6 improved to 4.4. Possibility of IgA nephropathy exacerbation, considered given her recurrent hematuria, 3+ protein and a slowly worsening course over the last 2 year 2. History of cirrhosis with history of hepatitis C and reformed alcoholic 3. History of drug abuse 4. Recent large volume paracentesis, on 08/07/2020. 5. Non-gap acidosis on IV bicarb Recommendation 1. Maintain IV fluids 2. If creatinine does not improve rapidly the next few days and consider treatment of her IgA nephropathy more aggressive. 3. Add sodium bicarbonate oral 650 mg 4 times a day
--- NOTE | 2020-08-09 10:44 | P.PN ---
Progress Note - Text Progress Note Date: 08/09/20 Ms. Smith continues to experience gross painless hematuria. Her serum creatinine level has improved to 4.4. She underwent paracentesis, with 8 L of fluid removed. She is felt to have acute kidney injury secondary to volume depletion, but IgA nephropathy exacerbation is being considered as a possibility. She will undergo outpatient cystoscopy to rule out intravesical pathology.
--- NOTE | 2020-08-09 11:56 | PN ---
PROGRESS NOTE DATE OF SERVICE: August 09, 2020 Patient is a 55-year-old pleasant white female with history of decompensated liver disease with decompensated cirrhosis of the liver with portal hypertension and ascites. She was admitted with abdominal distention, underwent large-volume paracentesis. 8 L of fluid was removed 2 days ago. Currently, her diuretics are on hold. She is doing fine. She does have some abdominal distention today, but she denies any abdominal pain. No nausea, no vomiting. PHYSICAL EXAMINATION: Appears comfortable. VITAL SIGNS: Stable. Blood pressure 167/81, pulse 74, temperature 98.8. HEENT examination unremarkable. Conjunctivae pink. Sclerae anicteric. Oral cavity no lesions. Neck no JVD or lymph node enlargement. CHEST: Clear to auscultation. HEART: Regular rate and rhythm. ABDOMEN: Soft, it was nontender, nondistended. Bowel sounds are positive. Mild ascites noted. Extremities: No pedal edema. Neuro: She is alert and oriented x3. No focal deficits. LABS: From today WBC 3.8, hemoglobin 7.8, platelets 54,000. Rest of the labs: BUN are 40, creatinine 4.4. IMPRESSION: 1. Cirrhosis of the liver secondary to chronic hepatitis C infection with gradual decompensation. 2. Ascites status post large-volume paracentesis 2 days ago, 8 L of fluid was removed. Diuretics on hold. 3. Chronic kidney disease secondary to nephrosclerosis with worsening BUN and creatinine. Nephrology following the patient closely. 4. History of drug abuse. RECOMMENDATIONS: 1. Symptomatic and supportive care. 2. IV hydration as per Nephrology. 3. Hold diuretics. 4. We will follow with you closely. Thank you for this consultation. MMODL / IJN: [id number] /
--- NOTE | 2020-08-09 13:33 | P.PN ---
Subjective Progress Note Date: 08/09/20 This is a 55-year-old female patient who presented to the ER with complaints of increased abdominal ascites. Patient has a known past medical history of liver cirrhosis in which she has required paracentesis is in the past. Per patient she has not received one in over a year but has not followed up with GI services. Upon admission patient was found to be in acute kidney failure with creatinine elevated at 5.68 and bun 42. Patient reports she has not been eating well and has been nauseated due to the abdominal ascites. Patient does reports she has been urinating. Additional medical history includes heart failure, COPD, GERD, essential hypertension and EtOH history. Patient denies any current alcohol use. Chest x-ray was completed showing some mild strandy bibasilar atelectasis. No acute process otherwise seen. KUB x-ray completed showing bowel gas pattern is nonspecific this could be part generalized ileus enters or early developing small bowel obstruction. CT of abdomen and pelvis completed showing moderately large amount of abdominal ascites unchanged subcutaneous edema around the abdomen unchanged irregular relatively small liver consistent with cirrhosis mild splenomegaly unchanged. At this time nephrology and GI services have been consulted. Patient also positive for blood in her urine which has been consistent with past urinary analysis. Patient was referred to neurology services by PCP but states she has not been able to see urologist will consult urology during inpatient stay. At this time patient denies any chest pain. Patient reports some shortness of breath. Patient denies nausea vomiting or diarrhea at this time. Patient denies any urinary burning or frequency On 08/07/2020 patient was seen and examined on the medical floor she is alert and oriented 3 in no apparent distress she is complaining of abdominal pain and distention otherwise she denies any complaints there is no fever or chills no headache or dizziness no chest pain no shortness of breath cough no nausea or vomiting no diarrhea no blood in the stools and no urinary symptoms On 08/08/2020 patient is alert and oriented 3. Patient reports improvement with abdominal discomfort since paracentesis. 8 L removed. Creatinine improving to 4.5. At this time patient denies chest pain or shortness breath. Patient denies nausea vomiting or diarrhea. Patient denies any urinary burning or frequency. On 08/09/2020 patient was seen and examined the medical floor she is alert and oriented 3 in no distress she is still complaining of abdominal pain she is complaining of painful rash in the left buttock area otherwise she denies any complaints there is no fever or chills no headache or dizziness no chest pain no shortness of breath no cough no nausea or vomiting no diarrhea no blood in the stools no burning with urination no frequency or urgency and no hematuria Objective - Vital Signs Vital signs: Vital Signs Temp 98.8 F 08/09/20 07:00 Pulse 74 08/09/20 07:00 Resp 18 08/09/20 02:21 BP 167/81 08/09/20 07:00 Pulse Ox 98 08/09/20 07:00 Intake & Output 08/08/20 08/09/20 08/09/20 18:59 06:59 18:59 Intake Total 400 560 Output Total 500 1000 Balance -100 -440 Intake: Intake, IV Titration 160 Amount Dextrose 5% in Water 1, 160 000 ml @ 80 mls/hr IV . [id number] CORY with Sodium Bicarb (1 Meq/ml) 150 ml Rx#:[id number] Oral 400 400 Output: Urine 500 1000 Other: Voiding Method Toilet # Voids 3 2 - Exam Head normocephalic Neck supple Lungs clear to auscultation bilaterally no wheezing or crackles Heart regular rate and rhythm S1-S2, no rub or gallop Abdomen is is rounded ascites noted Extremities no edema Neuro alert and orientated to 3 - Labs CBC & Chem 7: 08/09/20 06:26 08/09/20 06:26 Labs: Abnormal Lab Results - Last 24 Hours (Table) 08/09/20 08/09/20 Range/Units 06:26 06:26 RBC 2.54 L (3.80-5.40) m/uL Hgb 7.8 L (11.4-16.0) gm/dL Hct 24.2 L (34.0-46.0) % RDW 16.0 H (11.5-15.5) % Plt Count 54 L (150-450) k/uL Chloride 115 H (96-109) mmol/L Carbon Dioxide 19.6 L (21.6-31.8) mmol/L BUN 40.0 H (9.0-27.0) mg/dL Creatinine 4.4 H (0.6-1.5) mg/dL Est GFR (CKD-EPI)AfAm 12.3 L (60.0-200.0) Est GFR (CKD-EPI)NonAf 10.6 L (60.0-200.0) BUN/Creatinine Ratio 9.09 L (12.00-20.00) Ratio Calcium 7.3 L (8.7-10.3) mg/dL Total Bilirubin 0.2 L (0.3-1.2) mg/dL ALT <8 L (8-44) U/L Total Protein 4.8 L (6.2-8.2) g/dL Albumin 2.40 L (3.80-4.90) g/dL Albumin/Globulin Ratio 1.00 L (1.60-3.17) g/dL Microbiology - Last 24 Hours (Table) 08/07/20 15:12 Gram Stain - Preliminary Paracentesis Fluid Body Fluid Culture - Preliminary Assessment and Plan Assessment: 1. Abdominal ascites secondary to liver cirrhosis. Status post paracentesis with 8 L were removal. Fluid sent for cytology 2. Acute kidney injury. Creatinine elevated at 5.6 and bun 42 nephrology services have been consulted. Patient started on sodium bicarbonate drip per nephrology 3. Anemia of chronic disease 4. History of COPD 5. History of hepatitis C 6. History of chronic pain 7. Essential hypertension 8. Blood in urine. Per urology recommending outpatient cystoscopy to rule out intravascular pathology 9. Rash on the left buttock area compatible with zoster eruption with start patient on Valtrex DVT prophylaxis Lovenox. GI prophylaxis Pepcid GI, nephrology and urology service is consulted, awaiting recommendations
--- NOTE | 2020-08-09 15:16 | P.PN ---
Subjective Progress Note Date: 08/09/20 CHIEF COMPLAINT: Ascited HISTORY OF PRESENT ILLNESS: The patient is a 55-year-old female status post sta tus post paracentesis from the right upper abdomen. She reports decreased tenseness of the abdomen. She tolerated beef stroganoff for lunch. ROS: No reports of vomiting. No fevers or chills. No new chest pain. No productive sputum PHYSICAL EXAM: VITAL SIGNS: Reviewed CONSTITUTIONAL: Well developed and in no acute distress. EYES: Conjuctivae without sclera icterus. Extraocular movements grossly intact. HEAD, EARS, NOSE, THROAT: Moist buccal mucosa. Head is atraumatic, normocephalic. Hears conversational speech. No nasal drainage. NECK: Supple. No thyroidomegaly. RESPIRATORY: Non-labored respirations and equal bilateral excursions. CARDIOVASCULAR: Palpable 2+ radial pulses. Regular rate. Regular rhythm. ABDOMEN: Soft, no peritionitis. MUSCULOSKELETAL: No gross deformity of the lower extremities noted. No clubbing. No cyanosis. SKIN: Good skin turgor. Well perfused. NEUROLOGIC: Cranial nerves II through XII grossly intact. No focal or lateralizing signs. PSYCH: Appropriate affect. Alert and oriented to person, place and time. CLINICAL LABS: White blood cell count normal, 3.8 ASSESSMENT: 1. Ascites with liver cirrhosis 2. Alcohol abuse 3. Abdominal pain PLAN: 1. Diet as tolerated. 2. Management of ascites and liver cirrhosis with GI consultation advised. Objective - Vital Signs Vital signs: Vital Signs Temp 98.6 F 08/09/20 14:44 Pulse 75 08/09/20 14:44 Resp 18 08/09/20 02:21 BP 158/79 08/09/20 14:44 Pulse Ox 97 08/09/20 14:44 Intake & Output 08/08/20 08/09/20 08/09/20 18:59 06:59 18:59 Intake Total 400 560 Output Total 500 1000 Balance -100 -440 Intake: Intake, IV Titration 160 Amount Dextrose 5% in Water 1, 160 000 ml @ 80 mls/hr IV . [id number] CORY with Sodium Bicarb (1 Meq/ml) 150 ml Rx#:[id number] Oral 400 400 Output: Urine 500 1000 Other: Voiding Method Toilet # Voids 3 2 2 - Labs CBC & Chem 7: 08/09/20 06:26 08/09/20 06:26 Labs: Abnormal Lab Results - Last 24 Hours (Table) 08/09/20 08/09/20 Range/Units 06:26 06:26 RBC 2.54 L (3.80-5.40) m/uL Hgb 7.8 L (11.4-16.0) gm/dL Hct 24.2 L (34.0-46.0) % RDW 16.0 H (11.5-15.5) % Plt Count 54 L (150-450) k/uL Chloride 115 H (96-109) mmol/L Carbon Dioxide 19.6 L (21.6-31.8) mmol/L BUN 40.0 H (9.0-27.0) mg/dL Creatinine 4.4 H (0.6-1.5) mg/dL Est GFR (CKD-EPI)AfAm 12.3 L (60.0-200.0) Est GFR (CKD-EPI)NonAf 10.6 L (60.0-200.0) BUN/Creatinine Ratio 9.09 L (12.00-20.00) Ratio Calcium 7.3 L (8.7-10.3) mg/dL Total Bilirubin 0.2 L (0.3-1.2) mg/dL ALT <8 L (8-44) U/L Total Protein 4.8 L (6.2-8.2) g/dL Albumin 2.40 L (3.80-4.90) g/dL Albumin/Globulin Ratio 1.00 L (1.60-3.17) g/dL Microbiology - Last 24 Hours (Table) 08/07/20 15:12 Gram Stain - Preliminary Paracentesis Fluid Body Fluid Culture - Preliminary Assessment and Plan (1) Abdominal ascites Current Visit: Yes Status: Acute Code(s): R18.8 - OTHER ASCITES SNOMED Code(s): 325139363 (2) Abdominal pain Current Visit: No Status: Acute Code(s): R10.9 - UNSPECIFIED ABDOMINAL PAIN SNOMED Code(s): 99176730 (3) Alcoholic cirrhosis of liver with ascites Current Visit: No Status: Acute Code(s): K70.31 - ALCOHOLIC CIRRHOSIS OF LIVER WITH ASCITES SNOMED Code(s): 008103165
[2020-08-09] MEDS: SODIUM BICARBONATE TAB 650 MG TAB PO SCH ×3 (16:00→21:39)
[2020-08-09] MEDS: valACYclovir 500 MG TAB PO SCH ×2 (16:00→21:38)
[2020-08-09] MEDS: diphenhydrAMINE 25 MG CAP PO PRN (18:07)
[2020-08-09] MEDS: MINERAL OIL-WHITE PETROLATUM 120 GM JAR TOPICAL PRN (18:19)
[2020-08-09] MEDS: DEXTROSE 5% IN WATER 1,000 ML with SODIUM BICARB (1 MEQ/ML) 150 ML IV SCH (18:19)
[2020-08-10] MEDS: ALPRAZolam 0.25 MG TAB PO PRN ×3 (00:05→20:52)
[2020-08-10] MEDS: diphenhydrAMINE 25 MG CAP PO PRN ×3 (00:06→15:12)
[2020-08-10] MEDS: HYDROcodone/APAP 10-325MG 1 EACH TAB PO PRN ×5 (00:06→23:46)
[2020-08-10] MEDS: MORPHINE SULFATE 2 MG/ML SYRINGE IVP PRN ×3 (03:06→20:53)
[2020-08-10] MEDS: LEVOTHYROXINE 50 MCG TAB PO SCH (05:51)
[2020-08-10 06:05] LABS: Calcium 7.2 mg/dL (8.4-10.2); Potassium 3.7 mmol/L (3.5-5.1); Total Bilirubin 0.3 mg/dL (0.2-1.3); Total Protein 4.7 g/dL (6.3-8.2)
[2020-08-10] MEDS: DEXTROSE 5% IN WATER 1,000 ML with SODIUM BICARB (1 MEQ/ML) 150 ML IV SCH ×2 (06:30→17:57)
[2020-08-10] MEDS: PANTOPRAZOLE 40 MG TABLET PO SCH (06:32)
[2020-08-10] MEDS: carvediloL 12.5 MG TAB PO SCH ×2 (06:32→17:38)
[2020-08-10 06:44] LABS: Basophils % (A) 1 %; Eosinophils # (A) 0.1 k/uL (0-0.7); Eosinophils % (A) 4 %; HCT 21.8 % (34.0-46.0); HGB 7.4 gm/dL (11.4-16.0); Hypochromasia Slight; Lymphocytes # (A) 1.1 k/uL (1.0-4.8); Lymphocytes % (A) 33 %; MCH 32.5 pg (25.0-35.0); MCV 95.6 fL (80.0-100.0); Mean Platelet Volume 10.1; Monocytes # (A) 0.3 k/uL (0-1.0); Monocytes % (A) 9 %; Neutrophils # (A) 1.7 k/uL (1.3-7.7); Poikilocytosis Slight; RBC 2.28 m/uL (3.80-5.40); RDW 15.6 % (11.5-15.5); WBC 3.2 k/uL (3.8-10.6)
[2020-08-10 07:09] LABS: Platelet Count 64 k/uL (150-450)
[2020-08-10] MEDS: FAMOTIDINE 20 MG TAB PO SCH (08:59)
[2020-08-10] MEDS: allopurinoL 100 MG TAB PO SCH ×2 (08:59→20:52)
[2020-08-10] MEDS: FOLIC ACID 1 MG TAB PO SCH (08:59)
[2020-08-10] MEDS: ENOXAPARIN 30 MG/0.3 ML SYRINGE SQ SCH (08:59)
[2020-08-10] MEDS: SODIUM BICARBONATE TAB 650 MG TAB PO SCH ×4 (09:00→20:52)
[2020-08-10] MEDS: ISOSORBIDE MONONITRATE ER 30 MG TAB.ER.24H PO SCH (09:00)
[2020-08-10] MEDS: FERROUS SULFATE 325 MG TAB PO SCH (09:00)
[2020-08-10] MEDS: hydrALAZINE HCL 25 MG TAB PO SCH ×3 (09:00→21:08)
[2020-08-10] MEDS: POTASSIUM CHLORIDE ER 20 MEQ TAB.ER PO SCH (09:00)
[2020-08-10] MEDS: MAGNESIUM OXIDE 400 MG TAB PO SCH (09:00)
[2020-08-10] MEDS: valACYclovir 500 MG TAB PO SCH ×3 (09:01→20:53)
--- NOTE | 2020-08-10 10:30 | P.PN ---
Subjective Progress Note Date: 08/10/20 This is a 55-year-old female patient who presented to the ER with complaints of increased abdominal ascites. Patient has a known past medical history of liver cirrhosis in which she has required paracentesis is in the past. Per patient she has not received one in over a year but has not followed up with GI services. Upon admission patient was found to be in acute kidney failure with creatinine elevated at 5.68 and bun 42. Patient reports she has not been eating well and has been nauseated due to the abdominal ascites. Patient does reports she has been urinating. Additional medical history includes heart failure, COPD, GERD, essential hypertension and EtOH history. Patient denies any current alcohol use. Chest x-ray was completed showing some mild strandy bibasilar atelectasis. No acute process otherwise seen. KUB x-ray completed showing bowel gas pattern is nonspecific this could be part generalized ileus enters or early developing small bowel obstruction. CT of abdomen and pelvis completed showing moderately large amount of abdominal ascites unchanged subcutaneous edema around the abdomen unchanged irregular relatively small liver consistent with cirrhosis mild splenomegaly unchanged. At this time nephrology and GI services have been consulted. Patient also positive for blood in her urine which has been consistent with past urinary analysis. Patient was referred to neurology services by PCP but states she has not been able to see urologist will consult urology during inpatient stay. At this time patient denies any chest pain. Patient reports some shortness of breath. Patient denies nausea vomiting or diarrhea at this time. Patient denies any urinary burning or frequency On 08/07/2020 patient was seen and examined on the medical floor she is alert and oriented 3 in no apparent distress she is complaining of abdominal pain and distention otherwise she denies any complaints there is no fever or chills no headache or dizziness no chest pain no shortness of breath cough no nausea or vomiting no diarrhea no blood in the stools and no urinary symptoms On 08/08/2020 patient is alert and oriented 3. Patient reports improvement with abdominal discomfort since paracentesis. 8 L removed. Creatinine improving to 4.5. At this time patient denies chest pain or shortness breath. Patient denies nausea vomiting or diarrhea. Patient denies any urinary burning or frequency. On 08/09/2020 patient was seen and examined the medical floor she is alert and oriented 3 in no distress she is still complaining of abdominal pain she is complaining of painful rash in the left buttock area otherwise she denies any complaints there is no fever or chills no headache or dizziness no chest pain no shortness of breath no cough no nausea or vomiting no diarrhea no blood in the stools no burning with urination no frequency or urgency and no hematuria On 08/10/2020 patient is alert and oriented 3. Creatinine increasing to 4.81 bun is 37. Nephrology services are following. Patient also complaining of increased abdominal ascites. GI services are following. Patient denies chest pain or shortness of breath. Patient denies nausea vomiting or diarrhea. Patient denies any urinary burning or frequency Objective - Vital Signs Vital signs: Vital Signs Temp 97.8 F 08/10/20 07:57 Pulse 72 08/10/20 07:58 Resp 16 08/10/20 07:57 BP 148/77 08/10/20 07:57 Pulse Ox 98 08/10/20 07:57 Intake & Output 08/09/20 08/10/20 08/10/20 18:59 06:59 18:59 Intake Total 540 Balance 540 Intake: Oral 540 Other: Voiding Method Toilet Toilet # Voids 2 2 # Emeses 1 - Exam Head normocephalic Neck supple Lungs clear to auscultation bilaterally no wheezing or crackles Heart regular rate and rhythm S1-S2, no rub or gallop Abdomen is is rounded ascites noted Extremities no edema Neuro alert and orientated to 3 - Labs CBC & Chem 7: 08/10/20 05:32 08/10/20 05:32 Labs: Abnormal Lab Results - Last 24 Hours (Table) 08/10/20 08/10/20 Range/Units 05:32 05:32 WBC 3.2 L (3.8-10.6) k/uL RBC 2.28 L (3.80-5.40) m/uL Hgb 7.4 L (11.4-16.0) gm/dL Hct 21.8 L (34.0-46.0) % RDW 15.6 H (11.5-15.5) % Plt Count 64 L (150-450) k/uL Chloride 114 H (98-107) mmol/L Carbon Dioxide 20 L (22-30) mmol/L BUN 37 H (7-17) mg/dL Creatinine 4.81 H (0.52-1.04) mg/dL Calcium 7.2 L (8.4-10.2) mg/dL Total Protein 4.7 L (6.3-8.2) g/dL Albumin 2.0 L (3.5-5.0) g/dL Microbiology - Last 24 Hours (Table) 08/07/20 15:12 Anaerobic Culture - Preliminary Paracentesis Fluid 08/07/20 15:12 Gram Stain - Preliminary Paracentesis Fluid Body Fluid Culture - Preliminary Assessment and Plan Assessment: 1. Abdominal ascites secondary to liver cirrhosis. Status post paracentesis with 8 L were removal. Fluid sent for cytology 2. Acute kidney injury. Creatinine elevated at 5.6 and bun 42 nephrology services have been consulted. Patient started on sodium bicarbonate drip per nephrology 3. Anemia of chronic disease 4. History of COPD 5. History of hepatitis C 6. History of chronic pain 7. Essential hypertension 8. Blood in urine. Per urology recommending outpatient cystoscopy to rule out intravascular pathology 9. Rash on the left buttock area compatible with zoster eruption with start patient on Valtrex DVT prophylaxis Lovenox. GI prophylaxis Pepcid GI, nephrology and urology service is consulted, awaiting recommendations
--- NOTE | 2020-08-10 11:08 | PN ---
PROGRESS NOTE DATE OF DICTATION: August 10, 2020 Patient is a 55-year-old pleasant white female admitted to the hospital with history of chronic hepatitis C, cirrhosis of the liver and ascites status post large-volume paracentesis. She is doing well. She is complaining of some abdominal distention today. No nausea, no vomiting. Overall feeling well. PHYSICAL EXAMINATION: Appears comfortable. VITAL SIGNS: Stable. Blood pressure is 148/77, pulse is 70, temperature 97.8. HEENT examination unremarkable. Conjunctivae pink. Sclerae anicteric. Oral cavity no lesions. Neck no JVD. CHEST: Clear to auscultation. HEART: Regular rate and rhythm. ABDOMEN is slightly distended. There was some free fluid noted in the abdomen. EXTREMITIES: No pedal edema. NEURO: She is alert and oriented x3. No focal deficits. LABS: From today WBC 3.2, hemoglobin 7.4, platelets 64,000, BUN 37, creatinine 4.81. AST, ALT, T-bilirubin and alkaline phosphatase are normal. IMPRESSION: 1. Cirrhosis of the liver with gradual decompensation and ascites status post large- volume paracentesis 3 days ago, 5 L of fluid was removed. Patient doing well, off diuretics because of worsening kidney parameters. 2. Chronic kidney disease with a component of prerenal azotemia, undergoing IV hydration and creatinine today is 4.8. 3. Ascites with gradually worsening abdominal distention. RECOMMENDATIONS: 1. Continue with symptomatic and supportive care. 2. Continue to hold on diuretics as per Nephrology. 3. Monitor her clinical condition closely. 4. If abdominal distention worsen, we will consider repeat paracentesis prior to discharge from the hospital. 5. We will follow with you closely. Thank you for this consultation. MMODL / IJN: [id number] /
[2020-08-10] MEDS: MINERAL OIL-WHITE PETROLATUM 120 GM JAR TOPICAL PRN (11:59)
--- NOTE | 2020-08-10 12:52 | P.PN ---
Subjective Progress Note Date: 08/10/20 Principal diagnosis: This is a 55-year-old female known to us with IgA nephropathy biopsied 2019 has had a trial of prednisone. She was admitted with weakness and some nausea vomi ting and diarrhea. Creatinine was 5.6 on admission he was deemed to be from volume depletion. She was given IV fluids. Additionally she has had a 8 paracentesis done on 08/07/2020, her creatinine was up before this large volume paracentesis She has had chronic recurrent hematuria, in the remote past she was supposedly a drug addict as well as an alcoholic and has cirrhosis, hepatitis C. Addit ionally history of COPD. Her creatinine baseline is 1.5 on 03/10/2020, came up to 5.6 on admission and is slightly better at 4.4 and then went up to 4.81 today In the past her creatinine was normal at 1 in 2018. A urinalysis done on 08/05/2020 shows 3+ protein and large blood greater than 182 RBCs. A computed tomography scan does not show any other explanation for her hematuria. Hematuria is painless She was moved to the isolation room in the pediatrics Fall today because of possible zoster she has lesions that are urticarial on left arm, buttock and perineal area. These are not painful but a itchy. Currently on Valtrex 500 3 times a day Objective - Vital Signs Vital signs: Vital Signs Temp 97.4 F L 08/10/20 11:58 Pulse 83 08/10/20 11:58 Resp 16 08/10/20 11:58 BP 138/82 08/10/20 11:58 Pulse Ox 97 08/10/20 11:58 Intake & Output 08/09/20 08/10/20 08/10/20 18:59 06:59 18:59 Intake Total 540 Balance 540 Intake: Oral 540 Other: Voiding Method Toilet Toilet # Voids 2 2 # Emeses 1 Exams and she is awake alert oriented comfortable HEENT exam no JVP neck is supple no facial asymmetry Lungs are clear to auscultation good air entry bilaterally Heart sounds unremarkable for any murmur rub gallop Abdomen soft nontender Extremity exam was no edema Neurologically awake alert oriented Skin rashes urticarial and maybe some petechiae are seen. They're not confined to any dermatome pattern is some on her left arm and some on her buttock area. No vesicles are seen. - Labs CBC & Chem 7: 08/10/20 05:32 08/10/20 05:32 Labs: Abnormal Lab Results - Last 24 Hours (Table) 08/10/20 08/10/20 Range/Units 05:32 05:32 WBC 3.2 L (3.8-10.6) k/uL RBC 2.28 L (3.80-5.40) m/uL Hgb 7.4 L (11.4-16.0) gm/dL Hct 21.8 L (34.0-46.0) % RDW 15.6 H (11.5-15.5) % Plt Count 64 L (150-450) k/uL Chloride 114 H (98-107) mmol/L Carbon Dioxide 20 L (22-30) mmol/L BUN 37 H (7-17) mg/dL Creatinine 4.81 H (0.52-1.04) mg/dL Calcium 7.2 L (8.4-10.2) mg/dL Total Protein 4.7 L (6.3-8.2) g/dL Albumin 2.0 L (3.5-5.0) g/dL Microbiology - Last 24 Hours (Table) 08/07/20 15:12 Anaerobic Culture - Preliminary Paracentesis Fluid 08/07/20 15:12 Gram Stain - Preliminary Paracentesis Fluid Body Fluid Culture - Preliminary Assessment and Plan Assessment: Impression 1. Acute kidney injury likely from volume depletion creatinine peaked at 5.6 improved to 4.4. Possibility of IgA nephropathy exacerbation, considered given her recurrent hematuria, 3+ protein and a slowly worsening course over the last 2 year. Her biopsy has shown only 1 sclerosis glomeruli of 10, one had crescents biopsy was done in 2019.(No significant chronic changes) 2. History of cirrhosis with history of hepatitis C and reformed alcoholic 3. History of drug abuse 4. Recent large volume paracentesis, on 08/07/2020. 5. Non-gap acidosis on IV bicarb 6. Skin rash , with some petechiae . Currently started on Valtrex 500 3 times a day since yesterday Recommendation 1. Maintain IV fluids 2. Discussed with patient the possibly IgA relapse although it could be a secondary phenomenon from cirrhosis. As there is rapid and worsening of creatinine without any obvious cause, supposedly creatinine was If 2.2 on 01/13/2020. And as creatinine is not improving with fluid repletion, urinalysis somewhat suggestive of a relapse, started on prednisone 20 minutes twice a day to explain to her the risks and she accepts it. We may need to start her on dialysis in the next few days. 3. Continue sodium bicarbonate oral 650 mg 4 times a day 4. Suggest discontinuation of Valtrex
[2020-08-10 13:33] LABS: Creatinine,Urine Random 69.6 mg/dL
[2020-08-10] MEDS: predniSONE 20 MG TAB PO SCH (17:39)
[2020-08-11] MEDS: MORPHINE SULFATE 2 MG/ML SYRINGE IVP PRN ×3 (03:51→21:24)
[2020-08-11] MEDS: PANTOPRAZOLE 40 MG TABLET PO SCH (05:45)
[2020-08-11] MEDS: HYDROcodone/APAP 10-325MG 1 EACH TAB PO PRN ×3 (05:45→17:24)
[2020-08-11] MEDS: LEVOTHYROXINE 50 MCG TAB PO SCH (05:45)
[2020-08-11] MEDS: DEXTROSE 5% IN WATER 1,000 ML with SODIUM BICARB (1 MEQ/ML) 150 ML IV SCH (06:29)
[2020-08-11 07:22] LABS: Basophils % (A) 1 %; Eosinophils % (A) 0 %; HCT 23.2 % (34.0-46.0); HGB 7.8 gm/dL (11.4-16.0); Hypochromasia Slight; Lymphocytes # (A) 0.5 k/uL (1.0-4.8); Lymphocytes % (A) 12 %; MCH 32.1 pg (25.0-35.0); MCHC 33.5 g/dL (31.0-37.0); MCV 95.9 fL (80.0-100.0); Mean Platelet Volume 10.9; Monocytes # (A) 0.2 k/uL (0-1.0); Monocytes % (A) 4 %; Neutrophils # (A) 3.6 k/uL (1.3-7.7); Neutrophils % (A) 83 %; Poikilocytosis Slight; RBC 2.42 m/uL (3.80-5.40); RDW 15.2 % (11.5-15.5); WBC 4.3 k/uL (3.8-10.6)
[2020-08-11 07:25] LABS: Albumin 2.4 g/dL (3.5-5.0); Calcium 7.4 mg/dL (8.4-10.2); Potassium 4.3 mmol/L (3.5-5.1); Total Bilirubin 0.4 mg/dL (0.2-1.3); Total Protein 5.4 g/dL (6.3-8.2)
[2020-08-11 07:26] LABS: Platelet Count 57 k/uL (150-450)
[2020-08-11] MEDS: predniSONE 20 MG TAB PO SCH ×2 (08:31→20:49)
[2020-08-11] MEDS: POTASSIUM CHLORIDE ER 20 MEQ TAB.ER PO SCH (08:31)
[2020-08-11] MEDS: ALPRAZolam 0.25 MG TAB PO PRN ×2 (08:31→22:47)
[2020-08-11] MEDS: FAMOTIDINE 20 MG TAB PO SCH (08:31)
[2020-08-11] MEDS: FERROUS SULFATE 325 MG TAB PO SCH (08:31)
[2020-08-11] MEDS: valACYclovir 500 MG TAB PO SCH (08:32)
[2020-08-11] MEDS: hydrALAZINE HCL 25 MG TAB PO SCH ×3 (08:32→21:26)
[2020-08-11] MEDS: carvediloL 12.5 MG TAB PO SCH ×2 (08:33→19:21)
[2020-08-11] MEDS: FOLIC ACID 1 MG TAB PO SCH (08:33)
[2020-08-11] MEDS: ERGOCALCIFEROL 50,000 UNIT CAP PO SCH (08:33)
[2020-08-11] MEDS: MAGNESIUM OXIDE 400 MG TAB PO SCH (08:34)
[2020-08-11] MEDS: allopurinoL 100 MG TAB PO SCH ×2 (08:34→20:49)
[2020-08-11] MEDS: ISOSORBIDE MONONITRATE ER 30 MG TAB.ER.24H PO SCH (08:34)
[2020-08-11] MEDS: ENOXAPARIN 30 MG/0.3 ML SYRINGE SQ SCH (08:35)
[2020-08-11] MEDS: SODIUM BICARBONATE TAB 650 MG TAB PO SCH ×4 (08:39→21:26)
--- NOTE | 2020-08-11 11:53 | P.PN ---
Subjective Patient is seen in follow-up for acute kidney injury on chronic kidney disease. She has been voiding. No vomiting or diarrhea. Oral intake fair. Feels that her abdomen is filling up with fluid again. No chest pain or shortness of breath. Vital signs are stable. General: The patient appeared well nourished and normally developed. HEENT: Head exam is unremarkable. Neck is without jugular venous distension. LUNGS: Breath sounds decreased. HEART: Rate and Rhythm are regular. ABDOMEN: Soft, nontender. Distention noted. EXTREMITITES: No clubbing, cyanosis, or edema. Objective - Vital Signs Vital signs: Vital Signs Temp 98.0 F 08/11/20 08:30 Pulse 96 08/11/20 08:30 Resp 18 08/11/20 08:30 BP 172/86 08/11/20 08:30 Pulse Ox 96 08/11/20 08:30 Intake & Output 08/10/20 08/11/20 08/11/20 18:59 06:59 18:59 Intake Total 240 400 Output Total 325 1350 Balance -85 -1350 400 Weight 95.8 kg Intake: Oral 240 400 Output: Urine 325 1350 Other: Voiding Method Toilet Toilet Toilet - Labs CBC & Chem 7: 08/11/20 06:48 08/11/20 06:48 Labs: Abnormal Lab Results - Last 24 Hours (Table) 08/11/20 08/11/20 Range/Units 06:48 06:48 RBC 2.42 L (3.80-5.40) m/uL Hgb 7.8 L (11.4-16.0) gm/dL Hct 23.2 L (34.0-46.0) % Plt Count 57 L (150-450) k/uL Lymphocytes # 0.5 L (1.0-4.8) k/uL Chloride 109 H (98-107) mmol/L BUN 39 H (7-17) mg/dL Creatinine 4.85 H (0.52-1.04) mg/dL Glucose 120 H (74-99) mg/dL Calcium 7.4 L (8.4-10.2) mg/dL Total Protein 5.4 L (6.3-8.2) g/dL Albumin 2.4 L (3.5-5.0) g/dL Microbiology - Last 24 Hours (Table) 08/07/20 15:12 Gram Stain - Preliminary Paracentesis Fluid Body Fluid Culture - Preliminary Assessment and Plan Plan: Assessment: 1. Acute kidney injury secondary to ATN. Hepatorenal syndrome cannot be ruled out. This also concern for IgA nephropathy relapse vs other GN given the proteinuria and hematuria. Creatinine 4.85 today. 2. Decompensated liver cirrhosis. 3. Volume overload. 4. Ascites status post paracentesis on August 07 at 8 L drained. 5. Metabolic acidosis secondary to acute kidney injury. Improved. 6. Anemia of chronic kidney disease. Rule out iron deficiency. 7. Hypertension with chronic kidney disease. 8. Chronic kidney disease stage III with baseline creatinine near 1.5 secondary to IgA nephropathy. Plan: Hep-Lock IV fluids. Maintain oral bicarb. Check serologies. Will need another paracentesis. I will give her 25 g of albumin pre-and post paracentesis. Add spironolactone 25 mg twice daily. Add Demadex 20 mg once daily. Check iron studies. Check phosphorus level. Prednisone added August 10 for possible IgA relapse. This will be gradually tapered outpatient. Side effects of steroids were discussed with the patient. Maintain PPI. Will benefit from ANGELIQUE inhibitor once renal function stabilizes. I also discussed potential need for repeat kidney biopsy for definitive diagnosis and the associated risk of bleeding. She wants to hold off at this time. Continue to assess daily for need for renal replacement therapy. Also wants to hold off as much as possible.
[2020-08-11] MEDS: ALBUMIN HUMAN 25% 50 ML in EMPTY BAG 1 BAG IVPB SCH ×2 (12:13→16:53)
[2020-08-11] MEDS: SPIRONOLACTONE 25 MG TAB PO SCH ×2 (12:18→20:49)
[2020-08-11] MEDS: TORSEMIDE 20 MG TAB PO SCH (12:18)
--- NOTE | 2020-08-11 13:41 | P.PN ---
Progress Note - Text Progress Note Date: 08/11/20 The patient's complaining of some mild abdominal discomfort. She states that she feels her ascites has increased. On exam vital signs are stable. Abdomen is soft. There is evidence of ascites. Patient may require paracentesis if her ascites continues to increase. She'll be observed.
--- NOTE | 2020-08-11 16:55 | PN ---
PROGRESS NOTE DATE OF DICTATION: 08/11/2020 Patient is a 55-year-old pleasant white female with history of cirrhosis of the liver secondary to chronic hepatitis C infection with ascites, admitted to the hospital with abdominal distention and status post large-volume paracentesis 5 days ago and 5 L removed. She continues to have worsening BUN and creatinine and hence being monitored closely by Nephrology, was started on prednisone for IgA nephropathy. She denies any new symptoms today. Occasional abdominal pain, mild abdominal distention. No nausea, no vomiting. PHYSICAL EXAMINATION: Appears comfortable, in no apparent distress. Vital signs are stable. Blood pressure 133/86, pulse rate 62 and afebrile. HEENT: Examination unremarkable, conjunctive are pink, sclerae nonicteric, oral cavity no lesions. NECK: No JVD or lymph node enlargement. CHEST: Clear to auscultation. HEART: Regular rate and rhythm. ABDOMEN: Soft, bowel sounds are positive. It is slightly distended. There was some free fluid noted. No significant distention. NEUROLOGIC: Alert and oriented x3. No focal deficits. LABS: From today WBC 4.3, hemoglobin 7.8, platelets 57,000. BUN 39, creatinine 4.85. IMPRESSION: 1. Decompensated cirrhosis of the liver with ascites. 2. Abdominal distention/ascites status post large-volume paracentesis 5 days ago and 5 L removed. Currently has mild distention of the abdomen with mild ascites, not significant for a repeat paracentesis at this time. 3. Acute kidney injury superimposed on chronic kidney disease with IgA nephropathy. Patient started on empiric prednisone and Dr. Tidwell following the patient closely. RECOMMENDATIONS: 1. Continue with symptomatic and supportive care. 2. Monitor LFTs closely. 3. Will hold off on paracentesis at this time since she does not have clinically significant ascites. Will consider this in the next 48 hours based on her clinical symptoms. 4. Follow her BUN and creatinine closely. Thank you for this consultation. MMODL / IJN: [id number] /
[2020-08-11] MEDS ORDERED: ALBUMIN HUMAN 25% 50 ML in EMPTY BAG 1 BAG IVPB SCH (18:00)
[2020-08-11 18:47] LABS: Hepatitis A Antibody IgM Non-Reactive (Non-Reactive); Hepatitis B Core IgM Non-Reactive (Non-Reactive); Hepatitis B Surface Antigen Non-Reactive (Non-Reactive); Hepatitis C IgG Antibody Reactive (Non-Reactive)
[2020-08-11 18:52] LABS: Ferritin 215.2 ng/mL (10.0-291.0)
[2020-08-11 18:57] LABS: % Iron Saturation 40.61 (12.00-45.00)
--- NOTE | 2020-08-11 19:12 | P.PN ---
Subjective Progress Note Date: 08/11/20 This is a 55-year-old female patient who presented to the ER with complaints of increased abdominal ascites. Patient has a known past medical history of liver cirrhosis in which she has required paracentesis is in the past. Per patient she has not received one in over a year but has not followed up with GI services. Upon admission patient was found to be in acute kidney failure with creatinine elevated at 5.68 and bun 42. Patient reports she has not been eating well and has been nauseated due to the abdominal ascites. Patient does reports she has been urinating. Additional medical history includes heart failure, COPD, GERD, essential hypertension and EtOH history. Patient denies any current alcohol use. Chest x-ray was completed showing some mild strandy bibasilar atelectasis. No acute process otherwise seen. KUB x-ray completed showing bowel gas pattern is nonspecific this could be part generalized ileus enters or early developing small bowel obstruction. CT of abdomen and pelvis completed showing moderately large amount of abdominal ascites unchanged subcutaneous edema around the abdomen unchanged irregular relatively small liver consistent with cirrhosis mild splenomegaly unchanged. At this time nephrology and GI services have been consulted. Patient also positive for blood in her urine which has been consistent with past urinary analysis. Patient was referred to neurology services by PCP but states she has not been able to see urologist will consult urology during inpatient stay. At this time patient denies any chest pain. Patient reports some shortness of breath. Patient denies nausea vomiting or diarrhea at this time. Patient denies any urinary burning or frequency On 08/07/2020 patient was seen and examined on the medical floor she is alert and oriented 3 in no apparent distress she is complaining of abdominal pain and distention otherwise she denies any complaints there is no fever or chills no headache or dizziness no chest pain no shortness of breath cough no nausea or vomiting no diarrhea no blood in the stools and no urinary symptoms On 08/08/2020 patient is alert and oriented 3. Patient reports improvement with abdominal discomfort since paracentesis. 8 L removed. Creatinine improving to 4.5. At this time patient denies chest pain or shortness breath. Patient denies nausea vomiting or diarrhea. Patient denies any urinary burning or frequency. On 08/09/2020 patient was seen and examined the medical floor she is alert and oriented 3 in no distress she is still complaining of abdominal pain she is complaining of painful rash in the left buttock area otherwise she denies any complaints there is no fever or chills no headache or dizziness no chest pain no shortness of breath no cough no nausea or vomiting no diarrhea no blood in the stools no burning with urination no frequency or urgency and no hematuria On 08/10/2020 patient is alert and oriented 3. Creatinine increasing to 4.81 bun is 37. Nephrology services are following. Patient also complaining of increased abdominal ascites. GI services are following. Patient denies chest pain or shortness of breath. Patient denies nausea vomiting or diarrhea. Patient denies any urinary burning or frequency. On 08/11/2020 patient was seen and examined on the medical floor she is alert and oriented 3 in no apparent distress she is complaining of abdominal pain and distention otherwise she denies any other complaints there is no fever or chills no headache or dizziness no chest pain no shortness of breath no cough no nausea or vomiting no diarrhea and no urinary symptoms kidney function is worsening again today BUN 39 creatinine 4.85 patient is anemic with hemoglobin of 7.8 Objective - Vital Signs Vital signs: Vital Signs Temp 98.5 F 08/11/20 14:34 Pulse 102 H 08/11/20 17:21 Resp 20 08/11/20 16:00 BP 161/94 08/11/20 17:21 Pulse Ox 96 08/11/20 14:34 Intake & Output 08/10/20 08/11/20 08/11/20 18:59 06:59 18:59 Intake Total 240 400 Output Total 325 1350 1050 Balance -85 -1350 -650 Weight 95.8 kg 97.1 kg Intake: Oral 240 400 Output: Urine 325 1350 1050 Other: Voiding Method Toilet Toilet Toilet - Exam Head normocephalic Neck supple Lungs clear to auscultation bilaterally no wheezing or crackles Heart regular rate and rhythm S1-S2, no rub or gallop Abdomen is is rounded ascites noted Extremities no edema Neuro alert and orientated to 3 - Labs CBC & Chem 7: 08/11/20 06:48 08/11/20 06:48 Labs: Abnormal Lab Results - Last 24 Hours (Table) 08/11/20 08/11/20 Range/Units 06:48 06:48 RBC 2.42 L (3.80-5.40) m/uL Hgb 7.8 L (11.4-16.0) gm/dL Hct 23.2 L (34.0-46.0) % Plt Count 57 L (150-450) k/uL Lymphocytes # 0.5 L (1.0-4.8) k/uL Chloride 109 H (98-107) mmol/L BUN 39 H (7-17) mg/dL Creatinine 4.85 H (0.52-1.04) mg/dL Glucose 120 H (74-99) mg/dL Calcium 7.4 L (8.4-10.2) mg/dL Total Protein 5.4 L (6.3-8.2) g/dL Albumin 2.4 L (3.5-5.0) g/dL Microbiology - Last 24 Hours (Table) 08/07/20 15:12 Gram Stain - Final Paracentesis Fluid Body Fluid Culture - Final Assessment and Plan Assessment: 1. Abdominal ascites secondary to liver cirrhosis. Status post paracentesis with 8 L were removal. Fluid sent for cytology 2. Acute kidney injury. Creatinine elevated at 5.6 and bun 42 nephrology services have been consulted. Patient started on sodium bicarbonate drip per nephrology 3. Anemia of chronic disease 4. History of COPD 5. History of hepatitis C 6. History of chronic pain 7. Essential hypertension 8. Blood in urine. Per urology recommending outpatient cystoscopy to rule out intravascular pathology 9. Rash on the left buttock area compatible with zoster eruption with start patient on Valtrex DVT prophylaxis Lovenox. GI prophylaxis Pepcid GI, nephrology and urology service is consulted, awaiting recommendations
[2020-08-11 20:46] LABS: DNA Double-Stranded NEGATIVE (NEGATIVE)
[2020-08-11] MEDS: NICOTINE 21MG/24HR PATCH TRANSDERM SCH (21:25)
[2020-08-11] MEDS: hydrALAZINE HCL 20 MG/ML 1 ML VIAL IVP PRN (22:39)
[2020-08-12] MEDS: HYDROcodone/APAP 10-325MG 1 EACH TAB PO PRN ×4 (00:06→21:15)
[2020-08-12] MEDS: LEVOTHYROXINE 50 MCG TAB PO SCH (05:34)
[2020-08-12] MEDS: hydrALAZINE HCL 20 MG/ML 1 ML VIAL IVP PRN ×2 (05:34→12:11)
[2020-08-12 07:34] LABS: Albumin 2.3 g/dL (3.5-5.0); Calcium 7.7 mg/dL (8.4-10.2); Magnesium 1.8 mg/dL (1.6-2.3); Phosphorus 6.3 mg/dL (2.5-4.5); Potassium 3.9 mmol/L (3.5-5.1); Total Bilirubin 0.4 mg/dL (0.2-1.3)
[2020-08-12] MEDS: PANTOPRAZOLE 40 MG TABLET PO SCH (08:44)
[2020-08-12] MEDS: TORSEMIDE 20 MG TAB PO SCH (08:44)
[2020-08-12] MEDS: SPIRONOLACTONE 25 MG TAB PO SCH ×2 (08:44→21:16)
[2020-08-12] MEDS: ENOXAPARIN 30 MG/0.3 ML SYRINGE SQ SCH (08:44)
[2020-08-12] MEDS: ISOSORBIDE MONONITRATE ER 30 MG TAB.ER.24H PO SCH (08:44)
[2020-08-12] MEDS: carvediloL 12.5 MG TAB PO SCH ×2 (08:44→17:06)
[2020-08-12] MEDS: MAGNESIUM OXIDE 400 MG TAB PO SCH (08:44)
[2020-08-12] MEDS: allopurinoL 100 MG TAB PO SCH ×2 (08:45→21:15)
[2020-08-12] MEDS: SODIUM BICARBONATE TAB 650 MG TAB PO SCH ×4 (08:45→21:15)
[2020-08-12] MEDS: POTASSIUM CHLORIDE ER 20 MEQ TAB.ER PO SCH (08:46)
[2020-08-12] MEDS: FERROUS SULFATE 325 MG TAB PO SCH (08:46)
[2020-08-12] MEDS: FOLIC ACID 1 MG TAB PO SCH (08:46)
[2020-08-12] MEDS: predniSONE 20 MG TAB PO SCH ×2 (08:46→21:15)
[2020-08-12] MEDS: hydrALAZINE HCL 25 MG TAB PO SCH (08:46)
[2020-08-12] MEDS: MORPHINE SULFATE 2 MG/ML SYRINGE IVP PRN ×2 (08:58→17:07)
[2020-08-12] MEDS: ALPRAZolam 0.25 MG TAB PO PRN ×2 (08:58→22:13)
[2020-08-12] MEDS: NICOTINE 21MG/24HR PATCH TRANSDERM SCH ×2 (08:58→22:13)
[2020-08-12 09:35] LABS: Basophils % (A) 0 %; Eosinophils % (A) 0 %; HCT 21.2 % (34.0-46.0); Hypochromasia Slight; Lymphocytes # (A) 0.5 k/uL (1.0-4.8); Lymphocytes % (A) 12 %; MCV 96.9 fL (80.0-100.0); Mean Platelet Volume 9.4; Monocytes # (A) 0.2 k/uL (0-1.0); Monocytes % (A) 5 %; Neutrophils # (A) 3.5 k/uL (1.3-7.7); Neutrophils % (A) 82 %; Poikilocytosis Slight; RBC 2.19 m/uL (3.80-5.40); WBC 4.2 k/uL (3.8-10.6)
[2020-08-12 09:41] LABS: Platelet Count 66 k/uL (150-450)
--- NOTE | 2020-08-12 11:28 | P.PN ---
Subjective Progress Note Date: 08/12/20 CHIEF COMPLAINT: Abdominal pain HISTORY OF PRESENT ILLNESS: Patient is being followed for her abdominal pain. She had large abdominal ascites. Patient is status post paracentesis with 8 L removed. She feels like her ascites is again worsening. She is scheduled for abdominal ultrasound with possible paracentesis tomorrow. She denies any nausea or vomiting. She is afebrile. Creatinine 4.78 PHYSICAL EXAM: VITAL SIGNS: Reviewed. GENERAL: Well-developed in no acute distress. HEENT: No sclera icterus. Extraocular movements grossly intact. Moist buccal mucosa. Head is atraumatic, normocephalic. ABDOMEN: abdominal distention. Nontender with palpation. Less ascites present NEUROLOGIC: Alert and oriented. Cranial nerves II through XII grossly intact. ASSESSMENT: 1. Abdominal pain likely due to abdominal ascites. 2. History of liver cirrhosis with abdominal ascites requiring paracentesis. 3. Anemia which is multifactorial 4. Hematuria evaluated by urology 5. Acute on chronic kidney disease stage IV followed by nephrology and awaiting decision regarding renal replacement PLAN: -No surgical intervention planned -Continue supportive care -Continue regular, renal diet, sodium restriction Physician Test Engine Evaluator note has been reviewed by physician. Signing provider agrees with the documented findings, assessment, and plan of care. Objective - Vital Signs Vital signs: Vital Signs Temp 98.0 F 08/12/20 05:17 Pulse 97 08/12/20 05:17 Resp 16 08/12/20 05:17 BP 193/100 08/12/20 05:17 Pulse Ox 97 08/12/20 05:17 Intake & Output 08/11/20 08/12/20 08/12/20 18:59 06:59 18:59 Intake Total 400 240 Output Total 1050 Balance -650 240 Weight 97.1 kg 97.069 kg Intake: Oral 400 240 Output: Urine 1050 Other: Voiding Method Toilet Toilet # Voids 2 - Labs CBC & Chem 7: 08/12/20 06:53 08/12/20 06:53 Labs: Abnormal Lab Results - Last 24 Hours (Table) 08/11/20 08/11/20 08/11/20 Range/Units 12:09 12:09 12:09 RBC (3.80-5.40) m/uL Hgb (11.4-16.0) gm/dL Hct (34.0-46.0) % Plt Count (150-450) k/uL Lymphocytes # (1.0-4.8) k/uL Chloride (98-107) mmol/L BUN (7-17) mg/dL Creatinine (0.52-1.04) mg/dL Glucose (74-99) mg/dL Calcium (8.4-10.2) mg/dL Phosphorus (2.5-4.5) mg/dL TIBC 197 L (228-460) ug/dL Total Protein (6.3-8.2) g/dL Total Protein (PEP) 5.0 L (6.2-8.2) g/dL Albumin (3.5-5.0) g/dL Hep C IgG Ab Reactive A (Non-Reactive) 08/12/20 08/12/20 Range/Units 06:53 06:53 RBC 2.19 L (3.80-5.40) m/uL Hgb 7.0 L (11.4-16.0) gm/dL Hct 21.2 L (34.0-46.0) % Plt Count 66 L (150-450) k/uL Lymphocytes # 0.5 L (1.0-4.8) k/uL Chloride 111 H (98-107) mmol/L BUN 42 H (7-17) mg/dL Creatinine 4.78 H (0.52-1.04) mg/dL Glucose 108 H (74-99) mg/dL Calcium 7.7 L (8.4-10.2) mg/dL Phosphorus 6.3 H (2.5-4.5) mg/dL TIBC (228-460) ug/dL Total Protein 5.0 L (6.3-8.2) g/dL Total Protein (PEP) (6.2-8.2) g/dL Albumin 2.3 L (3.5-5.0) g/dL Hep C IgG Ab (Non-Reactive) Microbiology - Last 24 Hours (Table) 08/07/20 15:12 Anaerobic Culture - Final Paracentesis Fluid 08/07/20 15:12 Gram Stain - Final Paracentesis Fluid Body Fluid Culture - Final
--- NOTE | 2020-08-12 12:53 | P.PN ---
Subjective Patient is seen in follow-up for acute kidney injury on chronic kidney disease. She has been voiding. No vomiting or diarrhea. Oral intake fair. She is maintained on spironolactone as well as Demadex. She is also on prednisone for possible IgA relapse. Vital signs are stable. General: The patient appeared well nourished and normally developed. HEENT: Head exam is unremarkable. Neck is without jugular venous distension. LUNGS: Breath sounds decreased. HEART: Rate and Rhythm are regular. ABDOMEN: Soft, nontender. Distention noted. EXTREMITITES: 1+ edema. Objective - Vital Signs Vital signs: Vital Signs Temp 97.7 F 08/12/20 12:19 Pulse 99 08/12/20 12:19 Resp 17 08/12/20 12:19 BP 186/100 08/12/20 12:19 Pulse Ox 97 08/12/20 12:19 Intake & Output 08/11/20 08/12/20 08/12/20 18:59 06:59 18:59 Intake Total 400 240 Output Total 1050 Balance -650 240 Weight 97.1 kg 97.069 kg Intake: Oral 400 240 Output: Urine 1050 Other: Voiding Method Toilet Toilet # Voids 2 - Labs CBC & Chem 7: 08/12/20 06:53 08/12/20 06:53 Labs: Abnormal Lab Results - Last 24 Hours (Table) 08/11/20 08/11/20 08/11/20 Range/Units 12:09 12:09 12:09 RBC (3.80-5.40) m/uL Hgb (11.4-16.0) gm/dL Hct (34.0-46.0) % Plt Count (150-450) k/uL Lymphocytes # (1.0-4.8) k/uL Chloride (98-107) mmol/L BUN (7-17) mg/dL Creatinine (0.52-1.04) mg/dL Glucose (74-99) mg/dL Calcium (8.4-10.2) mg/dL Phosphorus (2.5-4.5) mg/dL TIBC 197 L (228-460) ug/dL Total Protein (6.3-8.2) g/dL Total Protein (PEP) 5.0 L (6.2-8.2) g/dL Albumin (3.5-5.0) g/dL Hep C IgG Ab Reactive A (Non-Reactive) 08/12/20 08/12/20 Range/Units 06:53 06:53 RBC 2.19 L (3.80-5.40) m/uL Hgb 7.0 L (11.4-16.0) gm/dL Hct 21.2 L (34.0-46.0) % Plt Count 66 L (150-450) k/uL Lymphocytes # 0.5 L (1.0-4.8) k/uL Chloride 111 H (98-107) mmol/L BUN 42 H (7-17) mg/dL Creatinine 4.78 H (0.52-1.04) mg/dL Glucose 108 H (74-99) mg/dL Calcium 7.7 L (8.4-10.2) mg/dL Phosphorus 6.3 H (2.5-4.5) mg/dL TIBC (228-460) ug/dL Total Protein 5.0 L (6.3-8.2) g/dL Total Protein (PEP) (6.2-8.2) g/dL Albumin 2.3 L (3.5-5.0) g/dL Hep C IgG Ab (Non-Reactive) Microbiology - Last 24 Hours (Table) 08/07/20 15:12 Anaerobic Culture - Final Paracentesis Fluid 08/07/20 15:12 Gram Stain - Final Paracentesis Fluid Body Fluid Culture - Final Assessment and Plan Plan: Assessment: 1. Acute kidney injury secondary to ATN. Hepatorenal syndrome cannot be ruled out. This also concern for IgA nephropathy relapse vs other GN given the proteinuria and hematuria. Creatinine 4.78 today. No hydronephrosis noted on CAT scan. 2. Decompensated liver cirrhosis. 3. Volume overload. 4. Ascites status post paracentesis on August 07 at 8 L drained. 5. Metabolic acidosis secondary to acute kidney injury. Improved. Maintained on oral bicarbonate. 6. Anemia of chronic kidney disease. Iron replete. 7. Hypertension with chronic kidney disease. Blood pressure high. 8. Chronic kidney disease stage III with baseline creatinine near 1.5 secondary to IgA nephropathy. 9. Chronic kidney disease mineral bone disease. Phosphorous 6.3. Plan: Maintain Demadex. Increase dose of spironolactone to 50 mg twice daily. Increase dose of hydralazine to 50 mg 3 times daily. Follow-up serologies - hep C IgG antibody positive. Hepatitis B negative. CELESTINO, double-stranded DNA antibody, complement levels normal. Potential paracentesis tomorrow. I will give her 25 g of albumin pre-and post paracentesis. Add PhosLo with meals. Prednisone added August 10 for possible IgA relapse. This will be gradually tapered outpatient. Side effects of steroids were discussed with the patient. Maintain PPI. Will benefit from ANGELIQUE inhibitor once renal function stabilizes. I also discussed potential need for repeat kidney biopsy for definitive diagnosis and the associated risk of bleeding. She wants to hold off at this time. Continue to assess daily for need for renal replacement therapy. Also wants to hold off as much as possible. No urgency to start at this time.
[2020-08-12 13:46] VITALS: BMI 36.7
[2020-08-12 14:40] LABS: C-ANCA <1:20 Titer (<1:20)
--- NOTE | 2020-08-12 16:03 | PN ---
PROGRESS NOTE DATE OF SERVICE: 08/12/2020 Patient is a 55-year-old pleasant white female with history of decompensated cirrhosis, ascites and acute kidney injury, superimposed on chronic kidney injury, being followed closely. She denies any new symptoms today. Currently, was started on Demadex as well as Aldactone by Dr. Angelo. She is feeling better. Mild abdominal distention. She was scheduled for large-volume paracentesis yesterday but it was canceled because of minimal abdominal distention. She was also started on prednisone for severe IgA nephropathy/relapse. PHYSICAL EXAMINATION: She appears comfortable, in no apparent distress. Vital signs are stable, blood pressure 186/100, pulse rate 99, temperature 97.7. HEENT" Examination unremarkable, conjunctivae are pink, sclerae nonicteric, oral cavity no lesions. NECK: No JVD or lymph node enlargement. CHEST: Clear to auscultation. HEART: Regular rate and rhythm. ABDOMEN: Soft, slightly distended. EXTREMITIES: No pedal edema. SKIN: No rashes. NEUROLOGIC: Alert and oriented x3. No focal deficits. LABS: From today BUN is 22, creatinine 4.71, albumin 2.3, hemoglobin 7, WBC normal, platelets are 66,000. IMPRESSION: 1. Decompensated liver disease. 2. Ascites, status post large-volume paracentesis 5 days ago and 5 L removed, now she has had developing mild abdominal distention secondary to ascites. 3. Acute kidney injury, superimposed on chronic kidney disease, being followed by Dr. Angelo closely. She is on prednisone for relapse of IgA nephropathy. 4. Metabolic acidosis. RECOMMENDATIONS: 1. Will schedule the patient for large-volume paracentesis tomorrow with IV albumin infusions. 2. Continue with current diuretic regimen as per Dr. Angelo. 3. Monitor LFTs closely. 4. Will follow with you closely. Thank you for this consultation. MMODL / IJN: [id number] /
[2020-08-12] MEDS: CALCIUM ACETATE 667 MG TAB PO SCH (17:06)
[2020-08-12] MEDS: hydrALAZINE HCL 50 MG TAB PO SCH ×2 (17:06→21:15)
--- NOTE | 2020-08-12 18:51 | P.PN ---
Subjective Progress Note Date: 08/12/20 This is a 55-year-old female patient who presented to the ER with complaints of increased abdominal ascites. Patient has a known past medical history of liver cirrhosis in which she has required paracentesis is in the past. Per patient she has not received one in over a year but has not followed up with GI services. Upon admission patient was found to be in acute kidney failure with creatinine elevated at 5.68 and bun 42. Patient reports she has not been eating well and has been nauseated due to the abdominal ascites. Patient does reports she has been urinating. Additional medical history includes heart failure, COPD, GERD, essential hypertension and EtOH history. Patient denies any current alcohol use. Chest x-ray was completed showing some mild strandy bibasilar atelectasis. No acute process otherwise seen. KUB x-ray completed showing bowel gas pattern is nonspecific this could be part generalized ileus enters or early developing small bowel obstruction. CT of abdomen and pelvis completed showing moderately large amount of abdominal ascites unchanged subcutaneous edema around the abdomen unchanged irregular relatively small liver consistent with cirrhosis mild splenomegaly unchanged. At this time nephrology and GI services have been consulted. Patient also positive for blood in her urine which has been consistent with past urinary analysis. Patient was referred to neurology services by PCP but states she has not been able to see urologist will consult urology during inpatient stay. At this time patient denies any chest pain. Patient reports some shortness of breath. Patient denies nausea vomiting or diarrhea at this time. Patient denies any urinary burning or frequency On 08/07/2020 patient was seen and examined on the medical floor she is alert and oriented 3 in no apparent distress she is complaining of abdominal pain and distention otherwise she denies any complaints there is no fever or chills no headache or dizziness no chest pain no shortness of breath cough no nausea or vomiting no diarrhea no blood in the stools and no urinary symptoms On 08/08/2020 patient is alert and oriented 3. Patient reports improvement with abdominal discomfort since paracentesis. 8 L removed. Creatinine improving to 4.5. At this time patient denies chest pain or shortness breath. Patient denies nausea vomiting or diarrhea. Patient denies any urinary burning or frequency. On 08/09/2020 patient was seen and examined the medical floor she is alert and oriented 3 in no distress she is still complaining of abdominal pain she is complaining of painful rash in the left buttock area otherwise she denies any complaints there is no fever or chills no headache or dizziness no chest pain no shortness of breath no cough no nausea or vomiting no diarrhea no blood in the stools no burning with urination no frequency or urgency and no hematuria On 08/10/2020 patient is alert and oriented 3. Creatinine increasing to 4.81 bun is 37. Nephrology services are following. Patient also complaining of increased abdominal ascites. GI services are following. Patient denies chest pain or shortness of breath. Patient denies nausea vomiting or diarrhea. Patient denies any urinary burning or frequency. On 08/11/2020 patient was seen and examined on the medical floor she is alert and oriented 3 in no apparent distress she is complaining of abdominal pain and distention otherwise she denies any other complaints there is no fever or chills no headache or dizziness no chest pain no shortness of breath no cough no nausea or vomiting no diarrhea and no urinary symptoms kidney function is worsening again today BUN 39 creatinine 4.85 patient is anemic with hemoglobin of 7.8 On 08/12/2020 patient was seen and examined on the medical floor she is alert and oriented 3 planning of abdominal pain and distention otherwise she denies any complaints there is no fever or chills no headache or dizziness no chest pain no shortness of breath no cough no nausea or vomiting no diarrhea and no urinary symptoms she is scheduled for repeat paracentesis tomorrow Objective - Vital Signs Vital signs: Vital Signs Temp 97.7 F 08/12/20 12:19 Pulse 99 08/12/20 12:19 Resp 17 08/12/20 12:19 BP 186/100 08/12/20 12:19 Pulse Ox 97 08/12/20 12:19 Intake & Output 08/11/20 08/12/20 08/12/20 18:59 06:59 18:59 Intake Total 400 240 Output Total 1050 Balance -650 240 Weight 97.1 kg 97.069 kg 97.069 kg Intake: Oral 400 240 Output: Urine 1050 Other: Voiding Method Toilet Toilet # Voids 2 3 - Exam Head normocephalic Neck supple Lungs clear to auscultation bilaterally no wheezing or crackles Heart regular rate and rhythm S1-S2, no rub or gallop Abdomen is is rounded ascites noted Extremities no edema Neuro alert and orientated to 3 - Labs CBC & Chem 7: 08/12/20 06:53 08/12/20 06:53 Labs: Abnormal Lab Results - Last 24 Hours (Table) 08/11/20 08/11/20 08/11/20 Range/Units 12:09 12:09 12:09 RBC (3.80-5.40) m/uL Hgb (11.4-16.0) gm/dL Hct (34.0-46.0) % Plt Count (150-450) k/uL Lymphocytes # (1.0-4.8) k/uL Chloride (98-107) mmol/L BUN (7-17) mg/dL Creatinine (0.52-1.04) mg/dL Glucose (74-99) mg/dL Calcium (8.4-10.2) mg/dL Phosphorus (2.5-4.5) mg/dL TIBC 197 L (228-460) ug/dL Total Protein (6.3-8.2) g/dL Total Protein (PEP) 5.0 L (6.2-8.2) g/dL Albumin (3.5-5.0) g/dL Hep C IgG Ab Reactive A (Non-Reactive) 08/12/20 08/12/20 Range/Units 06:53 06:53 RBC 2.19 L (3.80-5.40) m/uL Hgb 7.0 L (11.4-16.0) gm/dL Hct 21.2 L (34.0-46.0) % Plt Count 66 L (150-450) k/uL Lymphocytes # 0.5 L (1.0-4.8) k/uL Chloride 111 H (98-107) mmol/L BUN 42 H (7-17) mg/dL Creatinine 4.78 H (0.52-1.04) mg/dL Glucose 108 H (74-99) mg/dL Calcium 7.7 L (8.4-10.2) mg/dL Phosphorus 6.3 H (2.5-4.5) mg/dL TIBC (228-460) ug/dL Total Protein 5.0 L (6.3-8.2) g/dL Total Protein (PEP) (6.2-8.2) g/dL Albumin 2.3 L (3.5-5.0) g/dL Hep C IgG Ab (Non-Reactive) Microbiology - Last 24 Hours (Table) 08/07/20 15:12 Anaerobic Culture - Final Paracentesis Fluid 08/07/20 15:12 Gram Stain - Final Paracentesis Fluid Body Fluid Culture - Final Assessment and Plan Assessment: 1. Abdominal ascites secondary to liver cirrhosis. Status post paracentesis with 8 L were removal. Fluid sent for cytology 2. Acute kidney injury. Creatinine elevated at 5.6 and bun 42 nephrology services have been consulted. Patient started on sodium bicarbonate drip per nephrology 3. Anemia of chronic disease 4. History of COPD 5. History of hepatitis C 6. History of chronic pain 7. Essential hypertension 8. Blood in urine. Per urology recommending outpatient cystoscopy to rule out intravascular pathology DVT prophylaxis Lovenox. GI prophylaxis Pepcid GI, nephrology and urology service is consulted, awaiting recommendations
[2020-08-13] MEDS: MORPHINE SULFATE 2 MG/ML SYRINGE IVP PRN ×4 (01:01→19:34)
[2020-08-13] MEDS: HYDROcodone/APAP 10-325MG 1 EACH TAB PO PRN ×4 (03:28→21:51)
[2020-08-13] MEDS: LEVOTHYROXINE 50 MCG TAB PO SCH (05:19)
[2020-08-13] MEDS: hydrALAZINE HCL 20 MG/ML 1 ML VIAL IVP PRN ×2 (05:19→12:39)
[2020-08-13 06:43] LABS: INR 1.1 (<1.2); Prothrombin Time 10.8 sec (9.0-12.0)
[2020-08-13 06:54] LABS: Basophils % (A) 0 %; Eosinophils % (A) 0 %; HCT 24.4 % (34.0-46.0); HGB 7.7 gm/dL (11.4-16.0); Hypochromasia Slight; Lymphocytes # (A) 0.6 k/uL (1.0-4.8); Lymphocytes % (A) 11 %; MCH 30.3 pg (25.0-35.0); MCHC 31.6 g/dL (31.0-37.0); MCV 95.7 fL (80.0-100.0); Mean Platelet Volume 9.5; Monocytes # (A) 0.2 k/uL (0-1.0); Monocytes % (A) 4 %; Neutrophils # (A) 4.3 k/uL (1.3-7.7); Neutrophils % (A) 84 %; Poikilocytosis Slight; RBC 2.54 m/uL (3.80-5.40); RDW 15.5 % (11.5-15.5); WBC 5.2 k/uL (3.8-10.6)
[2020-08-13 07:12] LABS: Platelet Count 71 k/uL (150-450)
[2020-08-13] MEDS: ALBUMIN HUMAN 25% 50 ML in EMPTY BAG 1 BAG IVPB SCH ×2 (07:55→12:39)
[2020-08-13] MEDS: SODIUM BICARBONATE TAB 650 MG TAB PO SCH ×4 (07:56→21:51)
[2020-08-13] MEDS: hydrALAZINE HCL 50 MG TAB PO SCH ×3 (07:56→21:51)
[2020-08-13] MEDS: FOLIC ACID 1 MG TAB PO SCH (07:56)
[2020-08-13] MEDS: PANTOPRAZOLE 40 MG TABLET PO SCH (07:56)
[2020-08-13] MEDS: TORSEMIDE 20 MG TAB PO SCH (07:57)
[2020-08-13] MEDS: ENOXAPARIN 30 MG/0.3 ML SYRINGE SQ SCH (07:57)
[2020-08-13] MEDS: allopurinoL 100 MG TAB PO SCH ×2 (07:57→19:50)
[2020-08-13] MEDS: carvediloL 12.5 MG TAB PO SCH ×2 (07:57→17:38)
[2020-08-13] MEDS: NICOTINE 21MG/24HR PATCH TRANSDERM SCH (07:57)
[2020-08-13] MEDS: predniSONE 20 MG TAB PO SCH ×2 (07:57→19:50)
[2020-08-13] MEDS: CALCIUM ACETATE 667 MG TAB PO SCH ×2 (07:57→17:37)
[2020-08-13] MEDS: FERROUS SULFATE 325 MG TAB PO SCH (07:58)
[2020-08-13] MEDS: POTASSIUM CHLORIDE ER 20 MEQ TAB.ER PO SCH (07:58)
[2020-08-13] MEDS: MAGNESIUM OXIDE 400 MG TAB PO SCH (07:58)
[2020-08-13] MEDS: SPIRONOLACTONE 25 MG TAB PO SCH ×2 (07:58→19:50)
[2020-08-13] MEDS: ISOSORBIDE MONONITRATE ER 30 MG TAB.ER.24H PO SCH (07:58)
--- NOTE | 2020-08-13 08:16 | US ---
EXAMINATION TYPE: US abdomen limited DATE OF EXAM: 08/13/2020 COMPARISON: US CLINICAL HISTORY: ascites. Abdominal ascites is seen in all 4 quadrants with largest pocket measured in RLQ with patient in upri ght position = 6.8cm A/P. IMPRESSION: 1. Ascites
[2020-08-13 09:26] LABS: African American GFR (CKD) 11.7 (60.0-200.0); Albumin 2.8 g/dL (3.80-4.90); Albumin/Globulin Ratio 1.08 (1.60-3.17); Anion Gap 9.5 mmol/L (4.00-12.00); BUN/Creat Ratio 10.87 Ratio (12.00-20.00); Calcium 8.1 mg/dL (8.7-10.3); Carbon Dioxide 21.5 mmol/L (21.6-31.8); Globulin 2.6 g/dL (1.6-3.3); Magnesium 1.9 mg/dL (1.5-2.4); Non-African American GFR(CKD) 10.1 (60.0-200.0); Potassium 4.2 mmol/L (3.5-5.5); Total Bilirubin 0.1 mg/dL (0.2-1.2); Total Protein 5.4 g/dL (6.2-8.2)
--- NOTE | 2020-08-13 09:31 | P.PN ---
Subjective Patient is seen in follow-up for acute kidney injury on chronic kidney disease. She has been voiding. No vomiting or diarrhea. Oral intake fair. She is maintained on spironolactone as well as Demadex. She is also on prednisone for possible IgA relapse. Renal function slightly better today. Also scheduled for paracentesis today. Vital signs are stable. General: The patient appeared well nourished and normally developed. HEENT: Head exam is unremarkable. Neck is without jugular venous distension. LUNGS: Breath sounds decreased. HEART: Rate and Rhythm are regular. ABDOMEN: Soft, nontender. Distention noted. EXTREMITITES: 1+ edema. Objective - Vital Signs Vital signs: Vital Signs Temp 97.8 F 08/13/20 05:00 Pulse 90 08/13/20 05:00 Resp 16 08/13/20 05:00 BP 187/111 08/13/20 05:00 Pulse Ox 97 08/13/20 05:00 Intake & Output 08/12/20 08/13/20 08/13/20 18:59 06:59 18:59 Weight 97.069 kg 96.5 kg Other: Voiding Method Toilet # Voids 3 1 - Labs CBC & Chem 7: 08/13/20 06:00 08/13/20 06:00 Labs: Abnormal Lab Results - Last 24 Hours (Table) 08/12/20 08/13/20 08/13/20 Range/Units 06:53 06:00 06:00 RBC 2.19 L 2.54 L (3.80-5.40) m/uL Hgb 7.0 L 7.7 L (11.4-16.0) gm/dL Hct 21.2 L 24.4 L (34.0-46.0) % Plt Count 66 L 71 L (150-450) k/uL Lymphocytes # 0.5 L 0.6 L (1.0-4.8) k/uL Chloride 111 H (96-109) mmol/L Carbon Dioxide 21.5 L (21.6-31.8) mmol/L BUN 50.0 H (9.0-27.0) mg/dL Creatinine 4.6 H (0.6-1.5) mg/dL Est GFR (CKD-EPI)AfAm 11.7 L (60.0-200.0) Est GFR (CKD-EPI)NonAf 10.1 L (60.0-200.0) BUN/Creatinine Ratio 10.87 L (12.00-20.00) Ratio Glucose 134 H (70-110) mg/dL Calcium 8.1 L (8.7-10.3) mg/dL Total Bilirubin 0.1 L (0.2-1.2) mg/dL Total Protein 5.4 L (6.2-8.2) g/dL Albumin 2.80 L (3.80-4.90) g/dL Albumin/Globulin Ratio 1.08 L (1.60-3.17) g/dL Assessment and Plan Plan: Assessment: 1. Acute kidney injury secondary to ATN. Hepatorenal syndrome cannot be ruled out. This also concern for IgA nephropathy relapse vs other GN given the proteinuria and hematuria. Creatinine 4.6 today. No hydronephrosis noted on CAT scan. 2. Decompensated liver cirrhosis. 3. Volume overload. 4. Ascites status post paracentesis on August 07 at 8 L drained. 5. Metabolic acidosis secondary to acute kidney injury. Improved. Maintained on oral bicarbonate. 6. Anemia of chronic kidney disease. Iron replete. 7. Hypertension with chronic kidney disease. Blood pressure remains high. 8. Chronic kidney disease stage III with baseline creatinine near 1.5 secondary to IgA nephropathy. 9. Chronic kidney disease mineral bone disease. Phosphorous 6.3. Maintained on PhosLo. Plan: Maintain Demadex. Maintain spironolactone 50 mg twice daily. Increase dose of hydralazine to 100 mg 3 times daily. Serologies noted - hep C IgG antibody positive. Hepatitis B negative. CELESTINO, double-stranded DNA antibody, complement levels, ANCA normal. Paracentesis today. I will give her 25 g of albumin pre-and post paracentesis. Prednisone added August 10 for possible IgA relapse. This will be gradually tapered outpatient. Side effects of steroids were discussed with the patient. Maintain PPI. Will benefit from ANGELIQUE inhibitor once renal function stabilizes. I also discussed potential need for repeat kidney biopsy for definitive diagnosis and the associated risk of bleeding. She wants to hold off at this time. Continue to assess daily for need for renal replacement therapy. Also wants to hold off as much as possible. No urgency to start at this time.
--- NOTE | 2020-08-13 11:09 | P.PN ---
Subjective Progress Note Date: 08/13/20 CHIEF COMPLAINT: Abdominal pain HISTORY OF PRESENT ILLNESS: Patient is being followed for her abdominal pain. She had large abdominal ascites which contributed to patient's pain. Patient is status post paracentesis with 8 L removed. Her abdominal ascites is worsening. She had another abdominal ultrasound completed that did revealed abdominal ascites in all 4 quadrants. She is scheduled for paracentesis today. She denies any nausea or vomiting. She is reporting increasing abdominal discomfort. She reports having bowel movements. She is afebrile. She has been hypertensive nephrology has adjusted blood pressure medications. WBC 5.2 hemoglobin 7.7 creatinine 4.6 PHYSICAL EXAM: VITAL SIGNS: Reviewed. GENERAL: Well-developed in no acute distress. HEENT: No sclera icterus. Extraocular movements grossly intact. Moist buccal mucosa. Head is atraumatic, normocephalic. ABDOMEN: abdominal distention. Ascites present NEUROLOGIC: Alert and oriented. Cranial nerves II through XII grossly intact. ASSESSMENT: 1. Abdominal pain likely due to abdominal ascites. 2. History of liver cirrhosis with abdominal ascites requiring paracentesis. 3. Anemia of chronic kidney disease 4. Acute on chronic kidney disease stage IV followed by nephrology and awaiting decision regarding renal replacement PLAN: -No surgical intervention planned -Continue supportive care -Continue regular, renal diet, sodium restriction Physician Erp Engineer note has been reviewed by physician. Signing provider agrees with the documented findings, assessment, and plan of care. Objective - Vital Signs Vital signs: Vital Signs Temp 97.8 F 08/13/20 05:00 Pulse 87 08/13/20 10:33 Resp 16 08/13/20 10:33 BP 203/104 08/13/20 10:33 Pulse Ox 98 08/13/20 10:33 Intake & Output 08/12/20 08/13/20 08/13/20 18:59 06:59 18:59 Weight 97.069 kg 96.5 kg Other: Voiding Method Toilet # Voids 3 1 - Labs CBC & Chem 7: 08/13/20 06:00 08/13/20 06:00 Labs: Abnormal Lab Results - Last 24 Hours (Table) 08/13/20 08/13/20 Range/Units 06:00 06:00 RBC 2.54 L (3.80-5.40) m/uL Hgb 7.7 L (11.4-16.0) gm/dL Hct 24.4 L (34.0-46.0) % Plt Count 71 L (150-450) k/uL Lymphocytes # 0.6 L (1.0-4.8) k/uL Chloride 111 H (96-109) mmol/L Carbon Dioxide 21.5 L (21.6-31.8) mmol/L BUN 50.0 H (9.0-27.0) mg/dL Creatinine 4.6 H (0.6-1.5) mg/dL Est GFR (CKD-EPI)AfAm 11.7 L (60.0-200.0) Est GFR (CKD-EPI)NonAf 10.1 L (60.0-200.0) BUN/Creatinine Ratio 10.87 L (12.00-20.00) Ratio Glucose 134 H (70-110) mg/dL Calcium 8.1 L (8.7-10.3) mg/dL Total Bilirubin 0.1 L (0.2-1.2) mg/dL Total Protein 5.4 L (6.2-8.2) g/dL Albumin 2.80 L (3.80-4.90) g/dL Albumin/Globulin Ratio 1.08 L (1.60-3.17) g/dL
--- NOTE | 2020-08-13 12:20 | P.PN ---
Subjective Progress Note Date: 08/13/20 Principal diagnosis: Decompensated cirrhosis, ascites The pleasant 55-year-old female is admitted to the hospital with decompensated cirrhosis and hyperbilirubinemia. He is also being followed by nephrology for acute on chronic kidney injury. Patient was seen and examined at the bedside. She underwent a large-volume paracentesis today with IV albumin. She states she had 4.7 L removed. She is feeling well. Distension is improved. She states she will follow up with Dr. Angelo and possibly start hemodialysis. Objective - Vital Signs Vital signs: Vital Signs Temp 97.8 F 08/13/20 05:00 Pulse 87 08/13/20 10:33 Resp 16 08/13/20 10:33 BP 203/104 08/13/20 10:33 Pulse Ox 98 08/13/20 10:33 Intake & Output 08/12/20 08/13/20 08/13/20 18:59 06:59 18:59 Weight 97.069 kg 96.5 kg Other: Voiding Method Toilet # Voids 3 1 - Exam General appearance: The patient is alert, oriented, in no acute distress. HET: Head is normocephalic and atraumatic. Conjunctiva pink. Sclera anicteric. Neck: Supple without lymphadenopathy. Abdomen: Soft, nontender, mild distenstion with bowel sounds. No guarding or rigidity. Extremities: Normal skin color and turgor. No pedal edema Neurological: No focal deficits. Alert and oriented 3. - Labs CBC & Chem 7: 08/13/20 06:00 08/13/20 06:00 Labs: Abnormal Lab Results - Last 24 Hours (Table) 08/13/20 08/13/20 Range/Units 06:00 06:00 RBC 2.54 L (3.80-5.40) m/uL Hgb 7.7 L (11.4-16.0) gm/dL Hct 24.4 L (34.0-46.0) % Plt Count 71 L (150-450) k/uL Lymphocytes # 0.6 L (1.0-4.8) k/uL Chloride 111 H (96-109) mmol/L Carbon Dioxide 21.5 L (21.6-31.8) mmol/L BUN 50.0 H (9.0-27.0) mg/dL Creatinine 4.6 H (0.6-1.5) mg/dL Est GFR (CKD-EPI)AfAm 11.7 L (60.0-200.0) Est GFR (CKD-EPI)NonAf 10.1 L (60.0-200.0) BUN/Creatinine Ratio 10.87 L (12.00-20.00) Ratio Glucose 134 H (70-110) mg/dL Calcium 8.1 L (8.7-10.3) mg/dL Total Bilirubin 0.1 L (0.2-1.2) mg/dL Total Protein 5.4 L (6.2-8.2) g/dL Albumin 2.80 L (3.80-4.90) g/dL Albumin/Globulin Ratio 1.08 L (1.60-3.17) g/dL Assessment and Plan Assessment: 1. Decompensated liver disease 2. Ascites, status post large volume paracentesis days ago with 5 L removed as well and is again today 3. Acute kidney injury, superimposed on chronic kidney disease, being followed by Dr. Angelo closely. She is on prednisone for relapse of IgA nephropathy 4. Metabolic acidosis Plan: 1. Large volume paracentesis completed today with IV albumin 2. Continue with current diuretic regimen per Dr. Angelo 3. Monitor LFTs closely 4. We will follow with you closely 5. Patient may be discharged home from a gastroenterology standpoint, script given for therapeutic paracentesis every 2 weeks The impression and plan of care has been dictated as directed. Dr. Melodie Mcdaniel I performed a history and examination of this patient, discussed the same with the dictator. I agree with the dictator's note ,documented as a scribe. Any additional findings or plans will be noted.
[2020-08-13 13:47] LABS: Albumin 2.21 g/dL (3.80-4.90); Gamma Globulin 1.14 g/dL (0.70-1.50)
--- NOTE | 2020-08-13 15:33 | US ---
EXAMINATION TYPE: US paracentesis abd w/image DATE OF EXAM: 08/13/2020 COMPARISON: NONE HISTORY: Ascites. PROCEDURE: Maximal barrier technique was utilized. The skin overlying a suitable pocket of fluid was localized with ultrasound and the overlying skin was prepped and draped. Ultrasound was utilized with sterile technique. Lidocaine was used for local anesthesia and a skin sary made with a scalpel. Catheter was advanced under direct ultrasound guidance into a suitable pocket of fluid and approximately 4.7 liter s of serous fluid were removed. Catheter was withdrawn and hemostasis achieved. There is no immedia te complication; the patient is discharged in stable condition. IMPRESSION: STATUS POST ULTRASOUND GUIDED PARACENTESIS FOR PALLIATION OF ASCITES. THIS PROCEDURE WA S PERFORMED BY THE UNDERSIGNED.
[2020-08-13] MEDS: ALPRAZolam 0.25 MG TAB PO PRN (21:53)
[2020-08-14] MEDS: diphenhydrAMINE 25 MG CAP PO PRN ×2 (00:20→21:11)
[2020-08-14] MEDS: hydrALAZINE HCL 20 MG/ML 1 ML VIAL IVP PRN ×2 (00:20→14:26)
[2020-08-14] MEDS: MORPHINE SULFATE 2 MG/ML SYRINGE IVP PRN ×3 (04:55→18:07)
[2020-08-14] MEDS: LEVOTHYROXINE 50 MCG TAB PO SCH (04:56)
[2020-08-14] MEDS: NICOTINE 21MG/24HR PATCH TRANSDERM SCH (08:30)
[2020-08-14] MEDS: FOLIC ACID 1 MG TAB PO SCH (08:30)
[2020-08-14] MEDS: ENOXAPARIN 30 MG/0.3 ML SYRINGE SQ SCH (08:30)
[2020-08-14] MEDS: SODIUM BICARBONATE TAB 650 MG TAB PO SCH ×4 (08:30→21:11)
[2020-08-14] MEDS: CALCIUM ACETATE 667 MG TAB PO SCH ×2 (08:30→18:06)
[2020-08-14] MEDS: allopurinoL 100 MG TAB PO SCH ×2 (08:30→21:12)
[2020-08-14] MEDS: ISOSORBIDE MONONITRATE ER 30 MG TAB.ER.24H PO SCH (08:31)
[2020-08-14] MEDS: hydrALAZINE HCL 50 MG TAB PO SCH ×3 (08:31→21:12)
[2020-08-14] MEDS: MAGNESIUM OXIDE 400 MG TAB PO SCH (08:31)
[2020-08-14] MEDS: carvediloL 12.5 MG TAB PO SCH ×2 (08:31→18:06)
[2020-08-14] MEDS: FERROUS SULFATE 325 MG TAB PO SCH (08:31)
[2020-08-14] MEDS: TORSEMIDE 20 MG TAB PO SCH (08:31)
[2020-08-14] MEDS: predniSONE 20 MG TAB PO SCH ×2 (08:31→21:11)
[2020-08-14] MEDS: SPIRONOLACTONE 25 MG TAB PO SCH ×2 (08:31→21:11)
[2020-08-14] MEDS: POTASSIUM CHLORIDE ER 20 MEQ TAB.ER PO SCH (08:31)
[2020-08-14] MEDS: PANTOPRAZOLE 40 MG TABLET PO SCH (08:31)
[2020-08-14] MEDS: HYDROcodone/APAP 10-325MG 1 EACH TAB PO PRN ×3 (08:32→21:11)
[2020-08-14 08:52] LABS: Basophils % (A) 0 %; Eosinophils % (A) 0 %; HCT 20.2 % (34.0-46.0); Lymphocytes # (A) 0.5 k/uL (1.0-4.8); Lymphocytes % (A) 16 %; MCH 30.8 pg (25.0-35.0); MCHC 32.2 g/dL (31.0-37.0); MCV 95.8 fL (80.0-100.0); Mean Platelet Volume 10.1; Monocytes # (A) 0.2 k/uL (0-1.0); Monocytes % (A) 7 %; Neutrophils # (A) 2.4 k/uL (1.3-7.7); Neutrophils % (A) 75 %; Poikilocytosis Slight; RBC 2.11 m/uL (3.80-5.40); RDW 15.5 % (11.5-15.5); WBC 3.2 k/uL (3.8-10.6)
--- NOTE | 2020-08-14 09:18 | P.PN ---
Subjective Progress Note Date: 08/14/20 Principal diagnosis: Decompensated cirrhosis, ascites The patient is a 55-year-old female who was admitted for abdominal distention and ascites along with decompensated cirrhosis of the liver. She has been followed by nephrology. She was seen and examined lying in bed. She states overall she is feeling much better today after her paracentesis. He is tolerating diet. She denies any abdominal pain, nausea or vomiting. She does have some mild tenderness in the upper abdomen with palpation. She is ambulating without difficulty as well as urinating. Labs were pending initially but came back with a drop in hemoglobin to 6.5. The patient denies any evidence of a GI bleed, denies hematemesis or melena, denies any rectal bleeding. Objective - Vital Signs Vital signs: Vital Signs Temp 98.0 F 08/14/20 06:03 Pulse 81 08/14/20 06:03 Resp 16 08/14/20 06:03 BP 185/92 08/14/20 06:03 Pulse Ox 97 08/14/20 06:03 Intake & Output 08/13/20 08/14/20 08/14/20 18:59 06:59 18:59 Weight 91.9 kg Other: Voiding Method Toilet # Voids 2 2 - Exam General appearance: The patient is alert, oriented, in no acute distress. HET: Head is normocephalic and atraumatic. Conjunctiva pink. Sclera anicteric. Neck: Supple without lymphadenopathy. Abdomen: Soft, no tenderness to palpation along the upper abdomen, nondistended with bowel sounds. No guarding or rigidity. Extremities: Normal skin color and turgor. No pedal edema Neurological: No focal deficits. Alert and oriented 3. - Labs CBC & Chem 7: 08/14/20 07:43 08/14/20 07:43 Labs: Abnormal Lab Results - Last 24 Hours (Table) 08/11/20 08/13/20 Range/Units 12:09 06:00 Chloride 111 H (96-109) mmol/L Carbon Dioxide 21.5 L (21.6-31.8) mmol/L BUN 50.0 H (9.0-27.0) mg/dL Creatinine 4.6 H (0.6-1.5) mg/dL Est GFR (CKD-EPI)AfAm 11.7 L (60.0-200.0) Est GFR (CKD-EPI)NonAf 10.1 L (60.0-200.0) BUN/Creatinine Ratio 10.87 L (12.00-20.00) Ratio Glucose 134 H (70-110) mg/dL Calcium 8.1 L (8.7-10.3) mg/dL Total Bilirubin 0.1 L (0.2-1.2) mg/dL Total Protein 5.4 L (6.2-8.2) g/dL Albumin 2.80 L (3.80-4.90) g/dL Albumin (PEP) 2.21 L (3.80-4.90) g/dL Albumin/Globulin Ratio 1.08 L (1.60-3.17) g/dL Cmtpj-7-Cbqhhhhwp 0.43 H (0.10-0.40) g/dL Xgmrn-1-Ymlyzwxdb 0.59 L (0.60-1.00) g/dL Assessment and Plan Assessment: 1. Decompensated liver disease 2. Ascites, status post large volume paracentesis last week and again yesterday with 5 L and 4.7 L removed, respectively 3. Acute kidney injury, superimposed on chronic kidney disease, being followed by Dr. Angelo closely. She is on prednisone for relapse of IgA nephropathy. Hg 6.5 two units of PRBC ordered. 4. Metabolic acidosis Plan: 1. Large volume paracentesis completed yesterday with removal of 4.7 L 2. Continue with current diuretic regimen per Dr. Angelo 3. Monitor LFTs closely 4. Agree with blood transfusion 5. Patient may be discharged home from a gastroenterology standpoint once cleared by medicine, script given for therapeutic paracentesis every 2 weeks The impression and plan of care has been dictated as directed. Dr. Melodie Mcdaniel I performed a history and examination of this patient, discussed the same with the dictator. I agree with the dictator's note ,documented as a scribe. Any additional findings or plans will be noted.
[2020-08-14 10:06] LABS: Platelet Count 61 k/uL (150-450)
[2020-08-14 10:19] LABS: HGB 6.5 gm/dL (11.4-16.0)
--- NOTE | 2020-08-14 10:34 | P.PN ---
Subjective Progress Note Date: 08/13/20 This is a 55-year-old female patient who presented to the ER with complaints of increased abdominal ascites. Patient has a known past medical history of liver cirrhosis in which she has required paracentesis is in the past. Per patient she has not received one in over a year but has not followed up with GI services. Upon admission patient was found to be in acute kidney failure with creatinine elevated at 5.68 and bun 42. Patient reports she has not been eating well and has been nauseated due to the abdominal ascites. Patient does reports she has been urinating. Additional medical history includes heart failure, COPD, GERD, essential hypertension and EtOH history. Patient denies any current alcohol use. Chest x-ray was completed showing some mild strandy bibasilar atelectasis. No acute process otherwise seen. KUB x-ray completed showing bowel gas pattern is nonspecific this could be part generalized ileus enters or early developing small bowel obstruction. CT of abdomen and pelvis completed showing moderately large amount of abdominal ascites unchanged subcutaneous edema around the abdomen unchanged irregular relatively small liver consistent with cirrhosis mild splenomegaly unchanged. At this time nephrology and GI services have been consulted. Patient also positive for blood in her urine which has been consistent with past urinary analysis. Patient was referred to neurology services by PCP but states she has not been able to see urologist will consult urology during inpatient stay. At this time patient denies any chest pain. Patient reports some shortness of breath. Patient denies nausea vomiting or diarrhea at this time. Patient denies any urinary burning or frequency On 08/07/2020 patient was seen and examined on the medical floor she is alert and oriented 3 in no apparent distress she is complaining of abdominal pain and distention otherwise she denies any complaints there is no fever or chills no headache or dizziness no chest pain no shortness of breath cough no nausea or vomiting no diarrhea no blood in the stools and no urinary symptoms On 08/08/2020 patient is alert and oriented 3. Patient reports improvement with abdominal discomfort since paracentesis. 8 L removed. Creatinine improving to 4.5. At this time patient denies chest pain or shortness breath. Patient denies nausea vomiting or diarrhea. Patient denies any urinary burning or frequency. On 08/09/2020 patient was seen and examined the medical floor she is alert and oriented 3 in no distress she is still complaining of abdominal pain she is complaining of painful rash in the left buttock area otherwise she denies any complaints there is no fever or chills no headache or dizziness no chest pain no shortness of breath no cough no nausea or vomiting no diarrhea no blood in the stools no burning with urination no frequency or urgency and no hematuria On 08/10/2020 patient is alert and oriented 3. Creatinine increasing to 4.81 bun is 37. Nephrology services are following. Patient also complaining of increased abdominal ascites. GI services are following. Patient denies chest pain or shortness of breath. Patient denies nausea vomiting or diarrhea. Patient denies any urinary burning or frequency. On 08/11/2020 patient was seen and examined on the medical floor she is alert and oriented 3 in no apparent distress she is complaining of abdominal pain and distention otherwise she denies any other complaints there is no fever or chills no headache or dizziness no chest pain no shortness of breath no cough no nausea or vomiting no diarrhea and no urinary symptoms kidney function is worsening again today BUN 39 creatinine 4.85 patient is anemic with hemoglobin of 7.8 On 08/12/2020 patient was seen and examined on the medical floor she is alert and oriented 3 planning of abdominal pain and distention otherwise she denies any complaints there is no fever or chills no headache or dizziness no chest pain no shortness of breath no cough no nausea or vomiting no diarrhea and no urinary symptoms she is scheduled for repeat paracentesis tomorrow On 08/13/2020 patient was seen and examined on the medical floor she is still complaining of abdominal pain otherwise she denies any complaints she underwent paracentesis today there is no fever or chills no headache or dizziness no chest pain no shortness of breath no cough no nausea or vomiting no abdominal pain no diarrhea and no urinary symptoms Objective - Vital Signs Vital signs: Vital Signs Temp 97.8 F 08/13/20 05:00 Pulse 89 08/13/20 13:45 Resp 16 08/13/20 12:00 BP 172/82 08/13/20 13:45 Pulse Ox 96 08/13/20 12:00 Intake & Output 08/12/20 08/13/20 08/13/20 18:59 06:59 18:59 Weight 97.069 kg 96.5 kg Other: Voiding Method Toilet # Voids 3 1 2 - Exam Head normocephalic Neck supple Lungs clear to auscultation bilaterally no wheezing or crackles Heart regular rate and rhythm S1-S2, no rub or gallop Abdomen is is rounded ascites noted Extremities no edema Neuro alert and orientated to 3 - Labs CBC & Chem 7: 08/14/20 07:43 08/13/20 06:00 Labs: Abnormal Lab Results - Last 24 Hours (Table) 08/11/20 08/13/20 08/13/20 Range/Units 12:09 06:00 06:00 RBC 2.54 L (3.80-5.40) m/uL Hgb 7.7 L (11.4-16.0) gm/dL Hct 24.4 L (34.0-46.0) % Plt Count 71 L (150-450) k/uL Lymphocytes # 0.6 L (1.0-4.8) k/uL Chloride 111 H (96-109) mmol/L Carbon Dioxide 21.5 L (21.6-31.8) mmol/L BUN 50.0 H (9.0-27.0) mg/dL Creatinine 4.6 H (0.6-1.5) mg/dL Est GFR (CKD-EPI)AfAm 11.7 L (60.0-200.0) Est GFR (CKD-EPI)NonAf 10.1 L (60.0-200.0) BUN/Creatinine Ratio 10.87 L (12.00-20.00) Ratio Glucose 134 H (70-110) mg/dL Calcium 8.1 L (8.7-10.3) mg/dL Total Bilirubin 0.1 L (0.2-1.2) mg/dL Total Protein 5.4 L (6.2-8.2) g/dL Albumin 2.80 L (3.80-4.90) g/dL Albumin (PEP) 2.21 L (3.80-4.90) g/dL Albumin/Globulin Ratio 1.08 L (1.60-3.17) g/dL Qswdf-7-Hutxnmtbe 0.43 H (0.10-0.40) g/dL Qiorl-6-Vqegzonkr 0.59 L (0.60-1.00) g/dL Assessment and Plan Assessment: 1. Abdominal ascites secondary to liver cirrhosis. Status post paracentesis with 8 L were removal. Fluid sent for cytology 2. Acute kidney injury. Creatinine elevated at 5.6 and bun 42 nephrology services have been consulted. Patient started on sodium bicarbonate drip per nephrology 3. Anemia of chronic disease 4. History of COPD 5. History of hepatitis C 6. History of chronic pain 7. Essential hypertension 8. Blood in urine. Per urology recommending outpatient cystoscopy to rule out intravascular pathology DVT prophylaxis Lovenox. GI prophylaxis Pepcid GI, nephrology and urology service is consulted, awaiting recommendations
[2020-08-14 11:29] LABS: Albumin 2.6 g/dL (3.80-4.90); Albumin/Globulin Ratio 1.3 (1.60-3.17); Anion Gap 8.6 mmol/L (4.00-12.00); Calcium 7.8 mg/dL (8.7-10.3); Carbon Dioxide 22.4 mmol/L (21.6-31.8); Magnesium 1.9 mg/dL (1.5-2.4); Non-African American GFR(CKD) 10.4 (60.0-200.0); Potassium 4.3 mmol/L (3.5-5.5); Total Bilirubin 0.1 mg/dL (0.3-1.2); Total Protein 4.6 g/dL (6.2-8.2)
--- NOTE | 2020-08-14 11:44 | P.PN ---
Subjective Patient is seen in follow-up for acute kidney injury on chronic kidney disease. She has been voiding. No vomiting or diarrhea. Oral intake fair. She is maintained on spironolactone as well as Demadex. She is also on prednisone for possible IgA relapse. Renal function is stable. Vital signs are stable. Blood pressure on the higher side. General: The patient appeared well nourished and normally developed. HEENT: Head exam is unremarkable. Neck is without jugular venous distension. LUNGS: Breath sounds decreased. HEART: Rate and Rhythm are regular. ABDOMEN: Soft, nontender. Distention noted but better compared to yesterday. EXTREMITITES: 1+ edema. Objective - Vital Signs Vital signs: Vital Signs Temp 98.0 F 08/14/20 06:03 Pulse 81 08/14/20 06:03 Resp 16 08/14/20 06:03 BP 185/92 08/14/20 06:03 Pulse Ox 97 08/14/20 06:03 Intake & Output 08/13/20 08/14/20 08/14/20 18:59 06:59 18:59 Weight 91.9 kg Other: Voiding Method Toilet # Voids 2 2 - Labs CBC & Chem 7: 08/14/20 07:43 08/14/20 07:43 Labs: Abnormal Lab Results - Last 24 Hours (Table) 08/11/20 08/14/20 08/14/20 Range/Units 12:09 07:43 07:43 WBC 3.2 L (3.8-10.6) k/uL RBC 2.11 L (3.80-5.40) m/uL Hgb 6.5 L* (11.4-16.0) gm/dL Hct 20.2 L (34.0-46.0) % Plt Count 61 L (150-450) k/uL Lymphocytes # 0.5 L (1.0-4.8) k/uL Chloride 112 H (96-109) mmol/L BUN 54.0 H (9.0-27.0) mg/dL Creatinine 4.5 H (0.6-1.5) mg/dL Est GFR (CKD-EPI)AfAm 12.0 L (60.0-200.0) Est GFR (CKD-EPI)NonAf 10.4 L (60.0-200.0) Calcium 7.8 L (8.7-10.3) mg/dL Total Bilirubin 0.1 L (0.3-1.2) mg/dL Total Protein 4.6 L (6.2-8.2) g/dL Albumin 2.60 L (3.80-4.90) g/dL Albumin (PEP) 2.21 L (3.80-4.90) g/dL Albumin/Globulin Ratio 1.30 L (1.60-3.17) g/dL Mekbt-8-Yhjgfpasb 0.43 H (0.10-0.40) g/dL Buxle-5-Myogqcmce 0.59 L (0.60-1.00) g/dL Assessment and Plan Plan: Assessment: 1. Acute kidney injury secondary to ATN. Hepatorenal syndrome cannot be ruled out. This also concern for IgA nephropathy relapse vs other GN given the proteinuria and hematuria. Creatinine 4.5 today. No hydronephrosis noted on CAT scan. 2. Decompensated liver cirrhosis. 3. Volume overload. 4. Ascites status post paracentesis on August 07 at 8 L drained. Another paracentesis done August 13 at 4.7 L drained. She did receive albumin pre-and post procedure. 5. Metabolic acidosis secondary to acute kidney injury. Improved. Maintained on oral bicarbonate. 6. Anemia of chronic kidney disease. Iron replete. Hemoglobin 6.5 today. She will be receiving a blood transfusion. 7. Hypertension with chronic kidney disease. Blood pressure remains high. 8. Chronic kidney disease stage III with baseline creatinine near 1.5 secondary to IgA nephropathy. 9. Chronic kidney disease mineral bone disease. Phosphorous 6.3. Maintained on PhosLo. Plan: Maintain Demadex. Maintain spironolactone 50 mg twice daily. Add amlodipine. Add Aranesp. Stop potassium supplementation. Serologies noted - hep C IgG antibody positive. Hepatitis B negative. CELESTINO, double-stranded DNA antibody, complement levels, ANCA normal. SPEP and UPEP negative. Prednisone added August 10 for possible IgA relapse. This will be gradually tapered outpatient. Side effects of steroids were discussed with the patient. Maintain PPI. Will benefit from ANGELIQUE inhibitor once renal function stabilizes. I also discussed potential need for repeat kidney biopsy for definitive diagnosis and the associated risk of bleeding. She wants to hold off at this time. Patient changed her mind and now wants to initiate renal replacement therapy now rather than waiting. Due to severely depressed renal function and volume overload, will consult vascular surgery for permacath placement and plan for first treatment of hemodialysis tomorrow. She will be monitored for renal recovery outpatient. structural manager to help set up outpatient dialysis.
[2020-08-14] MEDS ORDERED: DARBEPOETIN ALFA 40 MCG/0.4 ML SYRINGE SQ SCH (12:00)
[2020-08-14] MEDS: amLODIPine 5 MG TAB PO SCH (12:34)
--- NOTE | 2020-08-14 13:14 | P.PN ---
Subjective Progress Note Date: 08/14/20 CHIEF COMPLAINT: Abdominal pain HISTORY OF PRESENT ILLNESS: Patient is being followed for her abdominal pain. She had large abdominal ascites which contributed to patient's pain. Patient had second paracentesis during this admission yesterday with 4.7 L removed. She does report some abdominal pain and upper abdomen. But pain is better than admission. She denies any nausea or vomiting. She is tolerating diet. She's afebrile. Hemoglobin is down to 6.5 and she will be receiving 1 unit of blood. Creatinine 4.5. Nephrology has consulted vascular surgery for permacath placement and for patient to start her first hemodialysis tomorrow PHYSICAL EXAM: VITAL SIGNS: Reviewed. GENERAL: Well-developed in no acute distress. HEENT: No sclera icterus. Extraocular movements grossly intact. Moist buccal mucosa. Head is atraumatic, normocephalic. ABDOMEN: Soft. abdominal distention. Ascites present but better than yesterday NEUROLOGIC: Alert and oriented. Cranial nerves II through XII grossly intact. ASSESSMENT: 1. Abdominal pain likely due to abdominal ascites. 2. History of liver cirrhosis with abdominal ascites requiring paracentesis. 3. Anemia of chronic kidney disease. Hemoglobin 6.5 patient is receiving 1 unit of blood 4. Acute on chronic kidney disease stage IV followed by nephrology PLAN: -No surgical intervention planned -Continue supportive care -Continue regular, renal diet, sodium restriction Physician Country Director note has been reviewed by physician. Signing provider agrees with the documented findings, assessment, and plan of care. Objective - Vital Signs Vital signs: Vital Signs Temp 98 F 08/14/20 12:13 Pulse 73 08/14/20 12:13 Resp 18 08/14/20 12:13 BP 186/83 08/14/20 12:13 Pulse Ox 98 08/14/20 12:13 Intake & Output 08/13/20 08/14/20 08/14/20 18:59 06:59 18:59 Weight 91.9 kg Other: Voiding Method Toilet # Voids 2 2 - Labs CBC & Chem 7: 08/14/20 07:43 08/14/20 07:43 Labs: Abnormal Lab Results - Last 24 Hours (Table) 08/11/20 08/14/20 08/14/20 Range/Units 12:09 07:43 07:43 WBC 3.2 L (3.8-10.6) k/uL RBC 2.11 L (3.80-5.40) m/uL Hgb 6.5 L* (11.4-16.0) gm/dL Hct 20.2 L (34.0-46.0) % Plt Count 61 L (150-450) k/uL Lymphocytes # 0.5 L (1.0-4.8) k/uL Chloride 112 H (96-109) mmol/L BUN 54.0 H (9.0-27.0) mg/dL Creatinine 4.5 H (0.6-1.5) mg/dL Est GFR (CKD-EPI)AfAm 12.0 L (60.0-200.0) Est GFR (CKD-EPI)NonAf 10.4 L (60.0-200.0) Calcium 7.8 L (8.7-10.3) mg/dL Total Bilirubin 0.1 L (0.3-1.2) mg/dL Total Protein 4.6 L (6.2-8.2) g/dL Albumin 2.60 L (3.80-4.90) g/dL Albumin (PEP) 2.21 L (3.80-4.90) g/dL Albumin/Globulin Ratio 1.30 L (1.60-3.17) g/dL Nnzhb-1-Tcofraibu 0.43 H (0.10-0.40) g/dL Dcqky-7-Nieqlpmxk 0.59 L (0.60-1.00) g/dL
[2020-08-14] MEDS: ALPRAZolam 0.25 MG TAB PO PRN (14:57)
[2020-08-14] MEDS ORDERED: SODIUM CHLORIDE 0.9% 500 ML 500 ML IV ONE (16:20)
[2020-08-14] MEDS ORDERED: fentaNYL (PF) 50 MCG/ML 2 ML AMP IV ONE (16:22)
[2020-08-14] MEDS ORDERED: MIDAZOLAM 2 MG/2 ML VIAL IV ONE (16:22)
[2020-08-14] MEDS: MIDAZOLAM 2 MG/2 ML VIAL IV ONE ×2 (16:22→16:47)
[2020-08-14] MEDS ORDERED: LIDOCAINE 1% INJ 10MG/ML (20 ML MDV) SQ ONE ×2 (16:26→16:50)
--- NOTE | 2020-08-14 17:11 | P.GSCN ---
History of Present Illness History of present illness: 55-year-old white female, history of acute chronic renal failure, I was consulted for placement of urgent dialysis catheter. Patient has history of cirrhosis of the liver,chronic kidney disease, COPD, hypertension, hepatitis C, Neck examination neck is supple no bruit appreciated Chest is clear first and second sound normal good entry both lungs Abdomen nontender Vascular examination brachial radial femoral pulses are present Plan is placement dialysis catheter risk and complication discussed Past Medical History Past Medical History: Heart Failure, COPD, GERD/Reflux, Hypertension, Liver Disease, Renal Disease Additional Past Medical History / Comment(s): admitted to [facility] on 03/02/19 with gastroenteritis/nausea/vomiting/diarrhea/abdominal pain/ascities/UTI and had negative Cdiff. Other hx: Hep C, alcoholic liver cirrhosis, portal HTN, abdominal ascities, IGA nephropathy, thromobocytopenia, CKD stage IV, anemia, severe protein calorie malnutrition, frequent diarrhea, low back pain from an injury. History of Any Multi-Drug Resistant Organisms: None Reported Past Surgical History: Tubal Ligation Additional Past Surgical History / Comment(s): multiple Paracentesis Past Anesthesia/Blood Transfusion Reactions: No Reported Reaction Additional Past Anesthesia/Blood Transfusion Reaction / Comm: claustrophobia Past Psychological History: Anxiety, Depression Additional Psychological History / Comment(s): Pt resides with significant other in an apartment. She does not drive. She is otherwise independent. Smoking Status: Current every day smoker Past Alcohol Use History: Abuse Additional Past Alcohol Use History / Comment(s): Started smoking at age 12, used to smoke 1 ppd but has cut down to 1/2 ppd. Pt quit drinking July 2018, used to drink rum & beer-8 beers daily & liquor also daily Past Drug Use History: None Reported - Past Family History Father History Unknown: Yes Family Medical History: Cancer Additional Family Medical History / Comment(s): Unk type of cancer. Father is . Mother History Unknown: Yes Family Medical History: AFIB, Congestive Heart Failure (CHF), Deep Vein Thrombosis (DVT), Myocardial Infarction ([place]), Seizure Disorder Additional Family Medical History / Comment(s): Mother had a OH at the age of 52 yrs. She is . Poss DVT. Medications and Allergies Home Medications Medication Instructions Recorded Confirmed Type ALPRAZolam [Xanax] 0.25 mg PO BID PRN 09/13/18 08/05/20 History Metoprolol Tartrate 25 mg PO DAILY 09/13/18 08/05/20 History HYDROcodone/APAP 10-325MG [[place] 1 tab PO BID PRN 11/21/18 08/05/20 History 10-325] Pantoprazole Sodium [Protonix] 40 mg PO DAILY 01/12/19 08/05/20 History allopurinoL [Zyloprim] 100 mg PO BID 01/12/19 08/05/20 History Folic Acid 0.4 mg PO DAILY 07/08/19 08/05/20 History Magnesium Oxide 400 mg PO DAILY 07/08/19 08/05/20 History Furosemide [Lasix] 40 mg PO DAILY 02/25/20 08/05/20 History Ergocalciferol [Vitamin D2 50,000 unit PO MO 03/10/20 08/05/20 History (DRISDOL)] Ferrous Sulfate [Iron (65 MG 325 mg PO DAILY 03/10/20 08/05/20 History Elemental)] Levothyroxine Sodium [Synthroid] 50 mcg PO DAILY 03/10/20 08/05/20 History hydrALAZINE HCL [Apresoline] 25 mg PO TID tab 03/12/20 08/05/20 Rx Isosorbide Mononitrate ER [Imdur] 30 mg PO DAILY 08/05/20 08/05/20 History Potassium Chloride ER [K-Dur 20] 20 meq PO DAILY 08/05/20 08/05/20 History Allergies Allergy/AdvReac Type Severity Reaction Status Date / Time bupropion [From Wellbutrin] AdvReac seizure Verified 08/13/20 10:36 Surgical - Exam Vital Signs Temp Pulse Resp BP Pulse Ox 98.0 F 63 22 164/91 100 08/05/20 15:14 08/05/20 15:14 08/05/20 15:14 08/05/20 15:14 08/05/20 15:14 Results - Labs 08/14/20 07:43 08/14/20 07:43 Abnormal Lab Results - Last 24 Hours (Table) 08/14/20 08/14/20 08/14/20 Range/Units 07:43 07:43 11:04 WBC 3.2 L (3.8-10.6) k/uL RBC 2.11 L (3.80-5.40) m/uL Hgb 6.5 L* (11.4-16.0) gm/dL Hct 20.2 L (34.0-46.0) % Plt Count 61 L (150-450) k/uL Lymphocytes # 0.5 L (1.0-4.8) k/uL Chloride 112 H (96-109) mmol/L BUN 54.0 H (9.0-27.0) mg/dL Creatinine 4.5 H (0.6-1.5) mg/dL Est GFR (CKD-EPI)AfAm 12.0 L (60.0-200.0) Est GFR (CKD-EPI)NonAf 10.4 L (60.0-200.0) Calcium 7.8 L (8.7-10.3) mg/dL Total Bilirubin 0.1 L (0.3-1.2) mg/dL Total Protein 4.6 L (6.2-8.2) g/dL Albumin 2.60 L (3.80-4.90) g/dL Albumin/Globulin Ratio 1.30 L (1.60-3.17) g/dL Crossmatch See Detail Diabetes panel 08/14/20 Range/Units 07:43 Sodium 143 (135-145) mmol/L Potassium 4.3 (3.5-5.5) mmol/L Chloride 112 H (96-109) mmol/L Carbon Dioxide 22.4 (21.6-31.8) mmol/L BUN 54.0 H (9.0-27.0) mg/dL Creatinine 4.5 H (0.6-1.5) mg/dL Glucose 100 (70-110) mg/dL Calcium 7.8 L (8.7-10.3) mg/dL AST 18 (13-35) U/L ALT 10 (8-44) U/L Alkaline Phosphatase 47 (41-126) U/L Total Protein 4.6 L (6.2-8.2) g/dL Albumin 2.60 L (3.80-4.90) g/dL Calcium panel 08/14/20 Range/Units 07:43 Calcium 7.8 L (8.7-10.3) mg/dL Albumin 2.60 L (3.80-4.90) g/dL Pituitary panel 08/14/20 Range/Units 07:43 Sodium 143 (135-145) mmol/L Potassium 4.3 (3.5-5.5) mmol/L Chloride 112 H (96-109) mmol/L Carbon Dioxide 22.4 (21.6-31.8) mmol/L BUN 54.0 H (9.0-27.0) mg/dL Creatinine 4.5 H (0.6-1.5) mg/dL Glucose 100 (70-110) mg/dL Calcium 7.8 L (8.7-10.3) mg/dL Adrenal panel 08/14/20 Range/Units 07:43 Sodium 143 (135-145) mmol/L Potassium 4.3 (3.5-5.5) mmol/L Chloride 112 H (96-109) mmol/L Carbon Dioxide 22.4 (21.6-31.8) mmol/L BUN 54.0 H (9.0-27.0) mg/dL Creatinine 4.5 H (0.6-1.5) mg/dL Glucose 100 (70-110) mg/dL Calcium 7.8 L (8.7-10.3) mg/dL Total Bilirubin 0.1 L (0.3-1.2) mg/dL AST 18 (13-35) U/L ALT 10 (8-44) U/L Alkaline Phosphatase 47 (41-126) U/L Total Protein 4.6 L (6.2-8.2) g/dL Albumin 2.60 L (3.80-4.90) g/dL
--- NOTE | 2020-08-14 17:14 | P.PCN ---
Description of Procedure: preoperative diagnoses is acute chronic renal failure Postoperative is same Procedure time for 3 minutes Procedure patient brought to the Cath Labrig neck and chest was prepped and draped applied sterile manner. 1% lidocaine for the neck and chest area. Ultrasound-guided micropuncture dated introduced right jugular vein and 4-[place] dilator advanced on the on the top of guidewire. Through the guidewire guidewire we placed place a4-[place] sheath and regular guidewire guidewire was passed was parked at the inferior vena cava. Then the tunnel was created to the terminal be brought 23 same dialysis catheter. Dilator was advanced on the top of the guidewire without any resistance under fluoroscopy after that sheath was advanced on the top of the guidewire through the sheath introducer dialysis catheter sheath was removed tip of the catheter superior vena cava and atrium junction flush with heparin saline and had a hep-locked secured with Vicryl and nylon dressing applied patient are to the procedure well and transferred to there are room in satisfactory condition plan is a chest x-ray of catheter placement
--- NOTE | 2020-08-14 18:03 | P.PN ---
Subjective Progress Note Date: 08/14/20 This is a 55-year-old female patient who presented to the ER with complaints of increased abdominal ascites. Patient has a known past medical history of liver cirrhosis in which she has required paracentesis is in the past. Per patient she has not received one in over a year but has not followed up with GI services. Upon admission patient was found to be in acute kidney failure with creatinine elevated at 5.68 and bun 42. Patient reports she has not been eating well and has been nauseated due to the abdominal ascites. Patient does reports she has been urinating. Additional medical history includes heart failure, COPD, GERD, essential hypertension and EtOH history. Patient denies any current alcohol use. Chest x-ray was completed showing some mild strandy bibasilar atelectasis. No acute process otherwise seen. KUB x-ray completed showing bowel gas pattern is nonspecific this could be part generalized ileus enters or early developing small bowel obstruction. CT of abdomen and pelvis completed showing moderately large amount of abdominal ascites unchanged subcutaneous edema around the abdomen unchanged irregular relatively small liver consistent with cirrhosis mild splenomegaly unchanged. At this time nephrology and GI services have been consulted. Patient also positive for blood in her urine which has been consistent with past urinary analysis. Patient was referred to neurology services by PCP but states she has not been able to see urologist will consult urology during inpatient stay. At this time patient denies any chest pain. Patient reports some shortness of breath. Patient denies nausea vomiting or diarrhea at this time. Patient denies any urinary burning or frequency On 08/07/2020 patient was seen and examined on the medical floor she is alert and oriented 3 in no apparent distress she is complaining of abdominal pain and distention otherwise she denies any complaints there is no fever or chills no headache or dizziness no chest pain no shortness of breath cough no nausea or vomiting no diarrhea no blood in the stools and no urinary symptoms On 08/08/2020 patient is alert and oriented 3. Patient reports improvement with abdominal discomfort since paracentesis. 8 L removed. Creatinine improving to 4.5. At this time patient denies chest pain or shortness breath. Patient denies nausea vomiting or diarrhea. Patient denies any urinary burning or frequency. On 08/09/2020 patient was seen and examined the medical floor she is alert and oriented 3 in no distress she is still complaining of abdominal pain she is complaining of painful rash in the left buttock area otherwise she denies any complaints there is no fever or chills no headache or dizziness no chest pain no shortness of breath no cough no nausea or vomiting no diarrhea no blood in the stools no burning with urination no frequency or urgency and no hematuria On 08/10/2020 patient is alert and oriented 3. Creatinine increasing to 4.81 bun is 37. Nephrology services are following. Patient also complaining of increased abdominal ascites. GI services are following. Patient denies chest pain or shortness of breath. Patient denies nausea vomiting or diarrhea. Patient denies any urinary burning or frequency. On 08/11/2020 patient was seen and examined on the medical floor she is alert and oriented 3 in no apparent distress she is complaining of abdominal pain and distention otherwise she denies any other complaints there is no fever or chills no headache or dizziness no chest pain no shortness of breath no cough no nausea or vomiting no diarrhea and no urinary symptoms kidney function is worsening again today BUN 39 creatinine 4.85 patient is anemic with hemoglobin of 7.8 On 08/12/2020 patient was seen and examined on the medical floor she is alert and oriented 3 planning of abdominal pain and distention otherwise she denies any complaints there is no fever or chills no headache or dizziness no chest pain no shortness of breath no cough no nausea or vomiting no diarrhea and no urinary symptoms she is scheduled for repeat paracentesis tomorrow On 08/13/2020 patient was seen and examined on the medical floor she is still complaining of abdominal pain otherwise she denies any complaints she underwent paracentesis today there is no fever or chills no headache or dizziness no chest pain no shortness of breath no cough no nausea or vomiting no abdominal pain no diarrhea and no urinary symptoms. On 08/14/2020 patient was seen and examined on the medical floor she is alert and oriented 3 she is still complaining of abdominal discomfort and pain she had paracentesis yesterday, hemoglobin today is down to 6.51 unit of red blood cell transfusion was ordered, BUN is still elevated at 54 creatinine elevated at 4.5 nephrology are following, otherwise patient denies any other complaints there is no fever or chills, no headache or dizziness no chest pain no shortness of breath no cough no nausea or vomiting no abdominal pain no diarrhea and no urinary symptoms, blood pressure remains severely elevated at 185/92, BP medications are being adjusted by nephrology Objective - Vital Signs Vital signs: Vital Signs Temp 98 F 08/14/20 12:13 Pulse 73 08/14/20 12:13 Resp 18 08/14/20 12:13 BP 186/83 08/14/20 12:13 Pulse Ox 98 08/14/20 12:13 Intake & Output 08/13/20 08/14/20 08/14/20 18:59 06:59 18:59 Weight 91.9 kg Other: Voiding Method Toilet # Voids 2 2 - Exam Head normocephalic Neck supple Lungs clear to auscultation bilaterally no wheezing or crackles Heart regular rate and rhythm S1-S2, no rub or gallop Abdomen is is rounded ascites noted Extremities no edema Neuro alert and orientated to 3 - Labs CBC & Chem 7: 08/14/20 07:43 08/14/20 07:43 Labs: Abnormal Lab Results - Last 24 Hours (Table) 08/11/20 08/14/20 08/14/20 Range/Units 12:09 07:43 07:43 WBC 3.2 L (3.8-10.6) k/uL RBC 2.11 L (3.80-5.40) m/uL Hgb 6.5 L* (11.4-16.0) gm/dL Hct 20.2 L (34.0-46.0) % Plt Count 61 L (150-450) k/uL Lymphocytes # 0.5 L (1.0-4.8) k/uL Chloride 112 H (96-109) mmol/L BUN 54.0 H (9.0-27.0) mg/dL Creatinine 4.5 H (0.6-1.5) mg/dL Est GFR (CKD-EPI)AfAm 12.0 L (60.0-200.0) Est GFR (CKD-EPI)NonAf 10.4 L (60.0-200.0) Calcium 7.8 L (8.7-10.3) mg/dL Total Bilirubin 0.1 L (0.3-1.2) mg/dL Total Protein 4.6 L (6.2-8.2) g/dL Albumin 2.60 L (3.80-4.90) g/dL Albumin (PEP) 2.21 L (3.80-4.90) g/dL Albumin/Globulin Ratio 1.30 L (1.60-3.17) g/dL Pqgha-2-Wnrnmgkfd 0.43 H (0.10-0.40) g/dL Lbpgi-0-Hcawttiag 0.59 L (0.60-1.00) g/dL Assessment and Plan Assessment: 1. Abdominal ascites secondary to liver cirrhosis. Status post paracentesis with 8 L were removal. Fluid sent for cytology 2. Acute kidney injury. Creatinine elevated at 5.6 and bun 42 nephrology services have been consulted. Patient started on sodium bicarbonate drip per nephrology 3. Anemia of chronic disease 4. History of COPD 5. History of hepatitis C 6. History of chronic pain 7. Essential hypertension 8. Blood in urine. Per urology recommending outpatient cystoscopy to rule out intravascular pathology DVT prophylaxis Lovenox. GI prophylaxis Pepcid GI, nephrology and urology service is consulted, awaiting recommendations
--- NOTE | 2020-08-14 18:14 | XR ---
EXAMINATION TYPE: XR chest 1V portable DATE OF EXAM: 08/14/2020 COMPARISON: 08/05/2020 HISTORY: Catheter placement TECHNIQUE: Single view FINDINGS: Heart and mediastinum are normal. Lungs are clear. Diaphragm is normal. There are no hilar masses. Pulmonary vascularity is normal. There is right-sided central venous catheter with tip in the superior vena cava. There is no pneumothorax. IMPRESSION: Catheter in good position. No active cardiopulmonary disease. Normal heart. No change.
[2020-08-15] MEDS: MORPHINE SULFATE 2 MG/ML SYRINGE IVP PRN ×4 (00:31→20:37)
[2020-08-15] MEDS: ALPRAZolam 0.25 MG TAB PO PRN ×2 (02:56→17:13)
[2020-08-15] MEDS: HYDROcodone/APAP 10-325MG 1 EACH TAB PO PRN ×3 (03:26→17:14)
[2020-08-15] MEDS: LEVOTHYROXINE 50 MCG TAB PO SCH (05:16)
[2020-08-15] MEDS: hydrALAZINE HCL 20 MG/ML 1 ML VIAL IVP PRN (06:05)
[2020-08-15] MEDS: ENOXAPARIN 30 MG/0.3 ML SYRINGE SQ SCH (07:44)
[2020-08-15] MEDS: ISOSORBIDE MONONITRATE ER 30 MG TAB.ER.24H PO SCH (07:46)
[2020-08-15] MEDS: FERROUS SULFATE 325 MG TAB PO SCH (07:46)
[2020-08-15] MEDS: hydrALAZINE HCL 50 MG TAB PO SCH ×3 (07:46→22:45)
[2020-08-15] MEDS: MAGNESIUM OXIDE 400 MG TAB PO SCH (07:47)
[2020-08-15] MEDS: SPIRONOLACTONE 25 MG TAB PO SCH ×2 (07:47→20:40)
[2020-08-15] MEDS: NICOTINE 21MG/24HR PATCH TRANSDERM SCH (07:47)
[2020-08-15] MEDS: PANTOPRAZOLE 40 MG TABLET PO SCH (07:47)
[2020-08-15] MEDS: carvediloL 12.5 MG TAB PO SCH ×2 (07:47→17:13)
[2020-08-15] MEDS: FOLIC ACID 1 MG TAB PO SCH (07:47)
[2020-08-15] MEDS: predniSONE 20 MG TAB PO SCH ×2 (07:47→20:40)
[2020-08-15] MEDS: CALCIUM ACETATE 667 MG TAB PO SCH ×2 (07:47→17:13)
[2020-08-15] MEDS: amLODIPine 5 MG TAB PO SCH (07:47)
[2020-08-15] MEDS: allopurinoL 100 MG TAB PO SCH ×2 (07:47→20:40)
[2020-08-15] MEDS: SODIUM BICARBONATE TAB 650 MG TAB PO SCH ×4 (07:47→22:45)
[2020-08-15] MEDS: TORSEMIDE 20 MG TAB PO SCH (07:47)
[2020-08-15 09:21] LABS: HCT 25.5 % (34.0-46.0); MCH 32.2 pg (25.0-35.0); MCHC 33.5 g/dL (31.0-37.0); MCV 96.3 fL (80.0-100.0); Mean Platelet Volume 11.7; Poikilocytosis Slight; RBC 2.64 m/uL (3.80-5.40); RDW 14.7 % (11.5-15.5); WBC 4.5 k/uL (3.8-10.6)
[2020-08-15 09:22] LABS: Platelet Count 48 k/uL (150-450)
[2020-08-15 09:28] LABS: HGB 8.5 gm/dL (11.4-16.0)
[2020-08-15 09:36] LABS: African American GFR (CKD) 11 (>60 ml/min/1.73 sqM); Anion Gap 5 mmol/L; Blood Urea Nitrogen 56 mg/dL (7-17); Calcium 7.8 mg/dL (8.4-10.2); Carbon Dioxide 20 mmol/L (22-30); Chloride 111 mmol/L (98-107); Glucose 142 mg/dL (74-99); Non-African American GFR(CKD) 10 (>60 ml/min/1.73 sqM); Potassium 4.3 mmol/L (3.5-5.1); Sodium 136 mmol/L (137-145)
--- NOTE | 2020-08-15 11:03 | P.PN ---
Subjective Progress Note Date: 08/15/20 CHIEF COMPLAINT: Abdominal pain HISTORY OF PRESENT ILLNESS: Patient is being followed for her abdominal pain. She had large abdominal ascites which contributed to patient's pain. Patient has required 2 paracentesis during this admission. Her abdominal pain has shown improvement. She'll be started on hemodialysis today per nephrology. She had dialysis catheter placed yesterday by Dr. Alonzo. She did receive 1 unit of blood. Hemoglobin is now 8.5. WBC 4.5. Afebrile. PHYSICAL EXAM: VITAL SIGNS: Reviewed. GENERAL: Well-developed in no acute distress. HEENT: No sclera icterus. Extraocular movements grossly intact. Moist buccal mucosa. Head is atraumatic, normocephalic. ABDOMEN: Soft. abdominal distention. Ascites present but better than yesterday NEUROLOGIC: Alert and oriented. Cranial nerves II through XII grossly intact. ASSESSMENT: 1. Abdominal pain likely due to abdominal ascites. Shown improvement 2. History of liver cirrhosis with abdominal ascites requiring paracentesis. 3. Anemia of chronic kidney disease. Status post 1 unit of blood 4. Acute on chronic kidney disease stage IV followed by nephrology PLAN: -No surgical intervention planned -Continue supportive care -Continue regular, renal diet, sodium restriction Physician Workday Consultant note has been reviewed by physician. Signing provider agrees with the documented findings, assessment, and plan of care. Objective - Vital Signs Vital signs: Vital Signs Temp 98 F 08/15/20 05:00 Pulse 76 08/15/20 05:00 Resp 18 08/15/20 05:00 BP 187/91 08/15/20 05:00 Pulse Ox 97 08/15/20 05:00 Intake & Output 08/14/20 08/15/20 08/15/20 18:59 06:59 18:59 Intake Total 410 240 Balance 410 240 Weight 93.1 kg Intake: IV 100 Oral 240 Blood Product 310 Rc As-1 Unit 310 [id number] Other: Voiding Method Toilet # Voids 4 1 1 - Labs CBC & Chem 7: 08/15/20 08:52 08/15/20 08:52 Labs: Abnormal Lab Results - Last 24 Hours (Table) 08/14/20 08/14/20 08/15/20 Range/Units 07:43 11:04 08:52 RBC 2.64 L (3.80-5.40) m/uL Hgb 8.5 L D (11.4-16.0) gm/dL Hct 25.5 L (34.0-46.0) % Plt Count 48 L (150-450) k/uL Sodium (137-145) mmol/L Chloride 112 H (96-109) mmol/L Carbon Dioxide (22-30) mmol/L BUN 54.0 H (9.0-27.0) mg/dL Creatinine 4.5 H (0.6-1.5) mg/dL Est GFR (CKD-EPI)AfAm 12.0 L (60.0-200.0) Est GFR (CKD-EPI)NonAf 10.4 L (60.0-200.0) Glucose (74-99) mg/dL Calcium 7.8 L (8.7-10.3) mg/dL Total Bilirubin 0.1 L (0.3-1.2) mg/dL Total Protein 4.6 L (6.2-8.2) g/dL Albumin 2.60 L (3.80-4.90) g/dL Albumin/Globulin Ratio 1.30 L (1.60-3.17) g/dL Crossmatch See Detail 08/15/20 Range/Units 08:52 RBC (3.80-5.40) m/uL Hgb (11.4-16.0) gm/dL Hct (34.0-46.0) % Plt Count (150-450) k/uL Sodium 136 L (137-145) mmol/L Chloride 111 H (96-109) mmol/L Carbon Dioxide 20 L (22-30) mmol/L BUN 56 H (9.0-27.0) mg/dL Creatinine 4.66 H (0.6-1.5) mg/dL Est GFR (CKD-EPI)AfAm (60.0-200.0) Est GFR (CKD-EPI)NonAf (60.0-200.0) Glucose 142 H (74-99) mg/dL Calcium 7.8 L (8.7-10.3) mg/dL Total Bilirubin (0.3-1.2) mg/dL Total Protein (6.2-8.2) g/dL Albumin (3.80-4.90) g/dL Albumin/Globulin Ratio (1.60-3.17) g/dL Crossmatch
--- NOTE | 2020-08-15 11:33 | P.PN ---
Subjective Progress Note Date: 08/15/20 Principal diagnosis: Decompensated cirrhosis, ascites The patient is a 55-year-old female who was admitted for abdominal distention and ascites along with decompensated cirrhosis of the liver. She has been followed by nephrology. Yesterday evening she underwent a permacath placement in the right IJ for hemodialysis treatment. SHe is scheduled for her first treatment today. She was seen and examined lying in bed. States she is sore from the permacath placement, otherwise denies any abdominal pain, nausea, or vomiting. He is tolerating diet. She denies any abdominal pain, nausea or vomiting. She is ambulating without difficulty as well as urinating. Yesterday the patient had a drop in her hemoglobin to 6.5, she was status post 2 units of packed RBC. Today's hemoglobin up to 8.5. The patient denies any evidence of a GI bleed, denies hematemesis or melena, denies any rectal bleeding. Objective - Vital Signs Vital signs: Vital Signs Temp 98 F 08/15/20 05:00 Pulse 76 08/15/20 05:00 Resp 18 08/15/20 05:00 BP 187/91 08/15/20 05:00 Pulse Ox 97 08/15/20 05:00 Intake & Output 08/14/20 08/15/20 08/15/20 18:59 06:59 18:59 Intake Total 410 240 Balance 410 240 Weight 93.1 kg Intake: IV 100 Oral 240 Blood Product 310 Rc As-1 Unit 310 [id number] Other: Voiding Method Toilet # Voids 4 1 1 - Exam General appearance: The patient is alert, oriented, in no acute distress. HET: Head is normocephalic and atraumatic. Conjunctiva pink. Sclera anicteric. Neck: Supple without lymphadenopathy. Abdomen: Soft, nontender, nondistended with bowel sounds. No guarding or rigidity. Extremities: Normal skin color and turgor. No pedal edema Neurological: No focal deficits. Alert and oriented 3. - Labs CBC & Chem 7: 08/15/20 08:52 08/15/20 08:52 Labs: Abnormal Lab Results - Last 24 Hours (Table) 08/14/20 08/14/20 08/15/20 Range/Units 07:43 11:04 08:52 RBC 2.64 L (3.80-5.40) m/uL Hgb 8.5 L D (11.4-16.0) gm/dL Hct 25.5 L (34.0-46.0) % Plt Count 48 L (150-450) k/uL Sodium (137-145) mmol/L Chloride 112 H (96-109) mmol/L Carbon Dioxide (22-30) mmol/L BUN 54.0 H (9.0-27.0) mg/dL Creatinine 4.5 H (0.6-1.5) mg/dL Est GFR (CKD-EPI)AfAm 12.0 L (60.0-200.0) Est GFR (CKD-EPI)NonAf 10.4 L (60.0-200.0) Glucose (74-99) mg/dL Calcium 7.8 L (8.7-10.3) mg/dL Total Bilirubin 0.1 L (0.3-1.2) mg/dL Total Protein 4.6 L (6.2-8.2) g/dL Albumin 2.60 L (3.80-4.90) g/dL Albumin/Globulin Ratio 1.30 L (1.60-3.17) g/dL Crossmatch See Detail 08/15/20 Range/Units 08:52 RBC (3.80-5.40) m/uL Hgb (11.4-16.0) gm/dL Hct (34.0-46.0) % Plt Count (150-450) k/uL Sodium 136 L (137-145) mmol/L Chloride 111 H (96-109) mmol/L Carbon Dioxide 20 L (22-30) mmol/L BUN 56 H (9.0-27.0) mg/dL Creatinine 4.66 H (0.6-1.5) mg/dL Est GFR (CKD-EPI)AfAm (60.0-200.0) Est GFR (CKD-EPI)NonAf (60.0-200.0) Glucose 142 H (74-99) mg/dL Calcium 7.8 L (8.7-10.3) mg/dL Total Bilirubin (0.3-1.2) mg/dL Total Protein (6.2-8.2) g/dL Albumin (3.80-4.90) g/dL Albumin/Globulin Ratio (1.60-3.17) g/dL Crossmatch Assessment and Plan Assessment: 1. Decompensated liver disease 2. Ascites, status post large volume paracentesis last week and again yesterday with 5 L and 4.7 L removed, respectively 3. Acute kidney injury, superimposed on chronic kidney disease, being followed by Dr. Angelo closely. She is on prednisone for relapse of IgA nephropathy. Status post tunneled dialysis catheter placement yesterday. 4. Metabolic acidosis Plan: 1. Large volume paracentesis completed 2. Continue with current diuretic regimen and hemodialysis per Dr. Angelo 3. Monitor LFTs closely 4. Transfuse if hemoglobin less than 7 5. Patient may be discharged home from a gastroenterology standpoint once cleared by medicine, script given for therapeutic paracentesis every 2 weeks, we will sign off at this time The impression and plan of care has been dictated as directed. Dr. Melodie Mcdaniel I performed a history and examination of this patient, discussed the same with the dictator. I agree with the dictator's note ,documented as a scribe. Any additional findings or plans will be noted.
--- NOTE | 2020-08-15 12:01 | P.PN ---
Subjective Patient is seen in follow-up for acute kidney injury on chronic kidney disease. She has been voiding. No vomiting or diarrhea. Oral intake fair. She is maintained on spironolactone as well as Demadex. She is also on prednisone for possible IgA relapse. Renal function slightly worse today. Permacath inserted yesterday. Scheduled for first treatment of hemodialysis today. Vital signs are stable. Blood pressure on the higher side. General: The patient appeared well nourished and normally developed. HEENT: Head exam is unremarkable. Neck is without jugular venous distension. LUNGS: Breath sounds decreased. HEART: Rate and Rhythm are regular. ABDOMEN: Soft, nontender. EXTREMITITES: 1+ edema. Objective - Vital Signs Vital signs: Vital Signs Temp 98 F 08/15/20 05:00 Pulse 76 08/15/20 05:00 Resp 18 08/15/20 05:00 BP 187/91 08/15/20 05:00 Pulse Ox 97 08/15/20 05:00 Intake & Output 08/14/20 08/15/20 08/15/20 18:59 06:59 18:59 Intake Total 410 240 Balance 410 240 Weight 93.1 kg Intake: IV 100 Oral 240 Blood Product 310 Rc As-1 Unit 310 [id number] Other: Voiding Method Toilet # Voids 4 1 1 - Labs CBC & Chem 7: 08/15/20 08:52 08/15/20 08:52 Labs: Abnormal Lab Results - Last 24 Hours (Table) 08/14/20 08/15/20 08/15/20 Range/Units 11:04 08:52 08:52 RBC 2.64 L (3.80-5.40) m/uL Hgb 8.5 L D (11.4-16.0) gm/dL Hct 25.5 L (34.0-46.0) % Plt Count 48 L (150-450) k/uL Sodium 136 L (137-145) mmol/L Chloride 111 H (98-107) mmol/L Carbon Dioxide 20 L (22-30) mmol/L BUN 56 H (7-17) mg/dL Creatinine 4.66 H (0.52-1.04) mg/dL Glucose 142 H (74-99) mg/dL Calcium 7.8 L (8.4-10.2) mg/dL Crossmatch See Detail Assessment and Plan Plan: Assessment: 1. Acute kidney injury secondary to ATN. Hepatorenal syndrome cannot be ruled out. This also concern for IgA nephropathy relapse vs other GN given the proteinuria and hematuria. Creatinine 4.66 today. No hydronephrosis noted on CAT scan. 2. Decompensated liver cirrhosis. 3. Volume overload. 4. Ascites status post paracentesis on August 07 at 8 L drained. Another paracentesis done August 13 at 4.7 L drained. She did receive albumin pre-and post procedure. 5. Metabolic acidosis secondary to acute kidney injury. Maintained on oral bicarbonate. 6. Anemia of chronic kidney disease. Iron replete. Maintained on Aranesp. Status post blood transfusion this admission. 7. Hypertension with chronic kidney disease. Blood pressure still high. 8. Chronic kidney disease stage III with baseline creatinine near 1.5 secondary to IgA nephropathy. 9. Chronic kidney disease mineral bone disease. Phosphorous 6.3. Maintained on PhosLo. Plan: Maintain Demadex. Maintain spironolactone 50 mg twice daily. Add clonidine 0.1 mg 3 times daily. Serologies noted - hep C IgG antibody positive. Hepatitis B negative. CELESTINO, double-stranded DNA antibody, complement levels, ANCA normal. SPEP and UPEP n egative. Prednisone added August 10 for possible IgA relapse. This will be gradually tapered outpatient. Side effects of steroids were discussed with the patient. Maintain PPI. Will benefit from ANGELIQUE inhibitor once renal function stabilizes. I also discussed potential need for repeat kidney biopsy for definitive diagnosis and the associated risk of bleeding. She wants to hold off at this time. Patient changed her mind and now wants to initiate renal replacement therapy now rather than waiting. Permacath inserted yesterday. Plan for first treatment of hemodialysis today and second treatment tomorrow. She will be monitored for renal recovery outpatient. manager front to help set up outpatient dialysis.
[2020-08-15] MEDS: cloNIDine HCL 0.1 MG TAB PO SCH ×3 (12:26→22:45)
--- NOTE | 2020-08-15 12:59 | P.PN ---
Subjective Progress Note Date: 08/15/20 This is a 55-year-old female patient who presented to the ER with complaints of increased abdominal ascites. Patient has a known past medical history of liver cirrhosis in which she has required paracentesis is in the past. Per patient she has not received one in over a year but has not followed up with GI services. Upon admission patient was found to be in acute kidney failure with creatinine elevated at 5.68 and bun 42. Patient reports she has not been eating well and has been nauseated due to the abdominal ascites. Patient does reports she has been urinating. Additional medical history includes heart failure, COPD, GERD, essential hypertension and EtOH history. Patient denies any current alcohol use. Chest x-ray was completed showing some mild strandy bibasilar atelectasis. No acute process otherwise seen. KUB x-ray completed showing bowel gas pattern is nonspecific this could be part generalized ileus enters or early developing small bowel obstruction. CT of abdomen and pelvis completed showing moderately large amount of abdominal ascites unchanged subcutaneous edema around the abdomen unchanged irregular relatively small liver consistent with cirrhosis mild splenomegaly unchanged. At this time nephrology and GI services have been consulted. Patient also positive for blood in her urine which has been consistent with past urinary analysis. Patient was referred to neurology services by PCP but states she has not been able to see urologist will consult urology during inpatient stay. At this time patient denies any chest pain. Patient reports some shortness of breath. Patient denies nausea vomiting or diarrhea at this time. Patient denies any urinary burning or frequency On 08/07/2020 patient was seen and examined on the medical floor she is alert and oriented 3 in no apparent distress she is complaining of abdominal pain and distention otherwise she denies any complaints there is no fever or chills no headache or dizziness no chest pain no shortness of breath cough no nausea or vomiting no diarrhea no blood in the stools and no urinary symptoms On 08/08/2020 patient is alert and oriented 3. Patient reports improvement with abdominal discomfort since paracentesis. 8 L removed. Creatinine improving to 4.5. At this time patient denies chest pain or shortness breath. Patient denies nausea vomiting or diarrhea. Patient denies any urinary burning or frequency. On 08/09/2020 patient was seen and examined the medical floor she is alert and oriented 3 in no distress she is still complaining of abdominal pain she is complaining of painful rash in the left buttock area otherwise she denies any complaints there is no fever or chills no headache or dizziness no chest pain no shortness of breath no cough no nausea or vomiting no diarrhea no blood in the stools no burning with urination no frequency or urgency and no hematuria On 08/10/2020 patient is alert and oriented 3. Creatinine increasing to 4.81 bun is 37. Nephrology services are following. Patient also complaining of increased abdominal ascites. GI services are following. Patient denies chest pain or shortness of breath. Patient denies nausea vomiting or diarrhea. Patient denies any urinary burning or frequency. On 08/11/2020 patient was seen and examined on the medical floor she is alert and oriented 3 in no apparent distress she is complaining of abdominal pain and distention otherwise she denies any other complaints there is no fever or chills no headache or dizziness no chest pain no shortness of breath no cough no nausea or vomiting no diarrhea and no urinary symptoms kidney function is worsening again today BUN 39 creatinine 4.85 patient is anemic with hemoglobin of 7.8 On 08/12/2020 patient was seen and examined on the medical floor she is alert and oriented 3 planning of abdominal pain and distention otherwise she denies any complaints there is no fever or chills no headache or dizziness no chest pain no shortness of breath no cough no nausea or vomiting no diarrhea and no urinary symptoms she is scheduled for repeat paracentesis tomorrow On 08/13/2020 patient was seen and examined on the medical floor she is still complaining of abdominal pain otherwise she denies any complaints she underwent paracentesis today there is no fever or chills no headache or dizziness no chest pain no shortness of breath no cough no nausea or vomiting no abdominal pain no diarrhea and no urinary symptoms. On 08/14/2020 patient was seen and examined on the medical floor she is alert and oriented 3 she is still complaining of abdominal discomfort and pain she had paracentesis yesterday, hemoglobin today is down to 6.51 unit of red blood cell transfusion was ordered, BUN is still elevated at 54 creatinine elevated at 4.5 nephrology are following, otherwise patient denies any other complaints there is no fever or chills, no headache or dizziness no chest pain no shortness of breath no cough no nausea or vomiting no abdominal pain no diarrhea and no urinary symptoms, blood pressure remains severely elevated at 185/92, BP medications are being adjusted by nephrology. On 08/15/2020 patient was seen and examined on the medical floor she is alert and oriented 3 in no apparent distress , she is complaining of shortness of breath with any activity otherwise she denies any complaints there is no fever or chills no headache or dizziness no chest pain no palpitation no nausea or vomiting no abdominal pain no diarrhea no blood in the stools no burning with urination no frequency or urgency and no hematuria, at this time kidney functions are still worsening patient was evaluated by nephrology and decision was made to start with hemodialysis today Objective - Vital Signs Vital signs: Vital Signs Temp 98.0 F 08/15/20 12:44 Pulse 69 08/15/20 12:44 Resp 16 08/15/20 12:44 BP 191/90 08/15/20 12:44 Pulse Ox 95 08/15/20 12:44 Intake & Output 08/14/20 08/15/20 08/15/20 18:59 06:59 18:59 Intake Total 410 240 Balance 410 240 Weight 93.1 kg Intake: IV 100 Oral 240 Blood Product 310 Rc As-1 Unit 310 [id number] Other: Voiding Method Toilet # Voids 4 1 1 - Exam In general patient is alert and oriented 3 Head normocephalic Neck supple no JVD no goiter Lungs crackles in both lung bases no wheezing Heart regular rate and rhythm S1-S2, no rub or gallop Abdomen is is rounded ascites noted Extremities 2+ edema Neuro no gross focal neurological deficit - Labs CBC & Chem 7: 08/15/20 08:52 08/15/20 08:52 Labs: Abnormal Lab Results - Last 24 Hours (Table) 08/14/20 08/15/20 08/15/20 Range/Units 11:04 08:52 08:52 RBC 2.64 L (3.80-5.40) m/uL Hgb 8.5 L D (11.4-16.0) gm/dL Hct 25.5 L (34.0-46.0) % Plt Count 48 L (150-450) k/uL Sodium 136 L (137-145) mmol/L Chloride 111 H (98-107) mmol/L Carbon Dioxide 20 L (22-30) mmol/L BUN 56 H (7-17) mg/dL Creatinine 4.66 H (0.52-1.04) mg/dL Glucose 142 H (74-99) mg/dL Calcium 7.8 L (8.4-10.2) mg/dL Crossmatch See Detail Assessment and Plan Assessment: 1. Abdominal ascites secondary to liver cirrhosis. Status post paracentesis with 8 L were removal. Fluid sent for cytology 2. Acute kidney injury. Creatinine continues to be elevated, decision by nephrology to start hemodialysis today 3. Anemia of chronic disease 4. History of COPD 5. History of hepatitis C 6. History of chronic pain 7. Essential hypertension 8. Blood in urine. Per urology recommending outpatient cystoscopy to rule out intravascular pathology DVT prophylaxis Lovenox. GI prophylaxis Pepcid GI, nephrology and urology service is consulted, awaiting recommendations
[2020-08-15] MEDS: diphenhydrAMINE 25 MG CAP PO PRN (22:45)
[2020-08-16] MEDS: HYDROcodone/APAP 10-325MG 1 EACH TAB PO PRN ×3 (03:56→18:19)
[2020-08-16] MEDS: LEVOTHYROXINE 50 MCG TAB PO SCH (05:17)
[2020-08-16] MEDS: ALPRAZolam 0.25 MG TAB PO PRN ×2 (05:17→18:19)
[2020-08-16] MEDS: SPIRONOLACTONE 25 MG TAB PO SCH ×2 (08:21→21:34)
[2020-08-16] MEDS: cloNIDine HCL 0.1 MG TAB PO SCH ×3 (08:21→21:34)
[2020-08-16] MEDS: allopurinoL 100 MG TAB PO SCH ×2 (08:22→21:34)
[2020-08-16] MEDS: carvediloL 12.5 MG TAB PO SCH ×2 (08:22→18:18)
[2020-08-16] MEDS: hydrALAZINE HCL 50 MG TAB PO SCH ×3 (08:22→21:34)
[2020-08-16] MEDS: CALCIUM ACETATE 667 MG TAB PO SCH ×2 (08:22→18:19)
[2020-08-16] MEDS: predniSONE 20 MG TAB PO SCH ×2 (08:22→21:34)
[2020-08-16] MEDS: MAGNESIUM OXIDE 400 MG TAB PO SCH (08:22)
[2020-08-16] MEDS: TORSEMIDE 20 MG TAB PO SCH (08:23)
[2020-08-16] MEDS: amLODIPine 5 MG TAB PO SCH (08:23)
[2020-08-16] MEDS: PANTOPRAZOLE 40 MG TABLET PO SCH (08:23)
[2020-08-16] MEDS: FOLIC ACID 1 MG TAB PO SCH (08:23)
[2020-08-16] MEDS: ISOSORBIDE MONONITRATE ER 30 MG TAB.ER.24H PO SCH (08:23)
[2020-08-16] MEDS: SODIUM BICARBONATE TAB 650 MG TAB PO SCH ×4 (08:23→21:34)
[2020-08-16] MEDS: FERROUS SULFATE 325 MG TAB PO SCH (08:23)
[2020-08-16] MEDS: ENOXAPARIN 30 MG/0.3 ML SYRINGE SQ SCH (08:24)
[2020-08-16] MEDS: NICOTINE 21MG/24HR PATCH TRANSDERM SCH (08:25)
[2020-08-16] MEDS: MORPHINE SULFATE 2 MG/ML SYRINGE IVP PRN ×3 (08:39→21:33)
--- NOTE | 2020-08-16 11:43 | PN ---
PROGRESS NOTE DATE OF DICTATION: August 16, 2020 Patient is a 55-year-old pleasant white female with cirrhosis/hep C and chronic kidney disease. She was started on hemodialysis yesterday. She is feeling a little bit tired this morning. She is complaining of some abdominal distention. No abdominal pain. No nausea, no vomiting. PHYSICAL EXAMINATION: She appears comfortable. No apparent distress. VITAL SIGNS: Stable. Blood pressure is 167/83, pulse rate 77, temperature 98.2. HEENT examination unremarkable. Conjunctivae pink. Sclerae anicteric. Oral cavity no lesions. Neck: No JVD or lymph node enlargement. Chest was clear to auscultation. HEART: Regular rate and rhythm. ABDOMEN: Soft. Bowel sounds are positive. No organomegaly. Extremities: No pedal edema. Neuro: She is alert and oriented x3. No focal deficits. LABS: From today WBC 4.5, hemoglobin 8.5, platelets 48,000. BUN 56, creatinine 4.66. IMPRESSION: 1. Cirrhosis of the liver with ascites status post large-volume paracentesis 3 days ago. She is feeling better. Mild ascites noted. 2. End-stage renal disease on hemodialysis started yesterday, tolerating well. 3. Anemia with drop in hemoglobin to 6.5, status post 2 units of PRBC transfusion. Repeat hemoglobin today is 8.5. Clinically no active bleeding. RECOMMENDATIONS: 1. Continue with current dose of diuretics. 2. Continue with symptomatic and supportive care. 3. We will consider paracentesis based on her symptoms and abdominal distention. 4. Will follow with you closely. Thank you for this consultation. MMODL / IJN: [id number] /
--- NOTE | 2020-08-16 14:14 | P.PN ---
Subjective Progress Note Date: 08/16/20 This is a 55-year-old female patient who presented to the ER with complaints of increased abdominal ascites. Patient has a known past medical history of liver cirrhosis in which she has required paracentesis is in the past. Per patient she has not received one in over a year but has not followed up with GI services. Upon admission patient was found to be in acute kidney failure with creatinine elevated at 5.68 and bun 42. Patient reports she has not been eating well and has been nauseated due to the abdominal ascites. Patient does reports she has been urinating. Additional medical history includes heart failure, COPD, GERD, essential hypertension and EtOH history. Patient denies any current alcohol use. Chest x-ray was completed showing some mild strandy bibasilar atelectasis. No acute process otherwise seen. KUB x-ray completed showing bowel gas pattern is nonspecific this could be part generalized ileus enters or early developing small bowel obstruction. CT of abdomen and pelvis completed showing moderately large amount of abdominal ascites unchanged subcutaneous edema around the abdomen unchanged irregular relatively small liver consistent with cirrhosis mild splenomegaly unchanged. At this time nephrology and GI services have been consulted. Patient also positive for blood in her urine which has been consistent with past urinary analysis. Patient was referred to neurology services by PCP but states she has not been able to see urologist will consult urology during inpatient stay. At this time patient denies any chest pain. Patient reports some shortness of breath. Patient denies nausea vomiting or diarrhea at this time. Patient denies any urinary burning or frequency On 08/07/2020 patient was seen and examined on the medical floor she is alert and oriented 3 in no apparent distress she is complaining of abdominal pain and distention otherwise she denies any complaints there is no fever or chills no headache or dizziness no chest pain no shortness of breath cough no nausea or vomiting no diarrhea no blood in the stools and no urinary symptoms On 08/08/2020 patient is alert and oriented 3. Patient reports improvement with abdominal discomfort since paracentesis. 8 L removed. Creatinine improving to 4.5. At this time patient denies chest pain or shortness breath. Patient denies nausea vomiting or diarrhea. Patient denies any urinary burning or frequency. On 08/09/2020 patient was seen and examined the medical floor she is alert and oriented 3 in no distress she is still complaining of abdominal pain she is complaining of painful rash in the left buttock area otherwise she denies any complaints there is no fever or chills no headache or dizziness no chest pain no shortness of breath no cough no nausea or vomiting no diarrhea no blood in the stools no burning with urination no frequency or urgency and no hematuria On 08/10/2020 patient is alert and oriented 3. Creatinine increasing to 4.81 bun is 37. Nephrology services are following. Patient also complaining of increased abdominal ascites. GI services are following. Patient denies chest pain or shortness of breath. Patient denies nausea vomiting or diarrhea. Patient denies any urinary burning or frequency. On 08/11/2020 patient was seen and examined on the medical floor she is alert and oriented 3 in no apparent distress she is complaining of abdominal pain and distention otherwise she denies any other complaints there is no fever or chills no headache or dizziness no chest pain no shortness of breath no cough no nausea or vomiting no diarrhea and no urinary symptoms kidney function is worsening again today BUN 39 creatinine 4.85 patient is anemic with hemoglobin of 7.8 On 08/12/2020 patient was seen and examined on the medical floor she is alert and oriented 3 planning of abdominal pain and distention otherwise she denies any complaints there is no fever or chills no headache or dizziness no chest pain no shortness of breath no cough no nausea or vomiting no diarrhea and no urinary symptoms she is scheduled for repeat paracentesis tomorrow On 08/13/2020 patient was seen and examined on the medical floor she is still complaining of abdominal pain otherwise she denies any complaints she underwent paracentesis today there is no fever or chills no headache or dizziness no chest pain no shortness of breath no cough no nausea or vomiting no abdominal pain no diarrhea and no urinary symptoms. On 08/14/2020 patient was seen and examined on the medical floor she is alert and oriented 3 she is still complaining of abdominal discomfort and pain she had paracentesis yesterday, hemoglobin today is down to 6.51 unit of red blood cell transfusion was ordered, BUN is still elevated at 54 creatinine elevated at 4.5 nephrology are following, otherwise patient denies any other complaints there is no fever or chills, no headache or dizziness no chest pain no shortness of breath no cough no nausea or vomiting no abdominal pain no diarrhea and no urinary symptoms, blood pressure remains severely elevated at 185/92, BP medications are being adjusted by nephrology. On 08/15/2020 patient was seen and examined on the medical floor she is alert and oriented 3 in no apparent distress , she is complaining of shortness of breath with any activity otherwise she denies any complaints there is no fever or chills no headache or dizziness no chest pain no palpitation no nausea or vomiting no abdominal pain no diarrhea no blood in the stools no burning with urination no frequency or urgency and no hematuria, at this time kidney functions are still worsening patient was evaluated by nephrology and decision was made to start with hemodialysis today. On 08/16/2020 patient was seen and examined on the medical floor she is alert and oriented 3 in no apparent distress she is feeling better she had her first session of hemodialysis yesterday she is scheduled for a second session of hemodialysis today there is no fever or chills no headache or dizziness no chest pain no shortness of breath no cough no nausea or vomiting no abdominal pain no diarrhea and no urinary symptoms. At this time will continue with current care she is scheduled for a second session of dialysis today Will reassess tomorrow possible discharge to home tomorrow if stable. Objective - Vital Signs Vital signs: Vital Signs Temp 98 F 08/16/20 12:01 Pulse 60 08/16/20 12:01 Resp 18 08/16/20 12:01 BP 156/78 08/16/20 12:01 Pulse Ox 97 08/16/20 12:01 Intake & Output 08/15/20 08/16/20 08/16/20 18:59 06:59 18:59 Intake Total 240 Output Total 500 Balance 240 -500 Weight 93.4 kg Intake: Oral 240 Output: Hemodialysis 500 Other: Voiding Method Toilet # Voids 3 2 # Bowel Movements 1 - Exam In general patient is alert and oriented 3 Head normocephalic Neck supple no JVD no goiter Lungs crackles in both lung bases no wheezing Heart regular rate and rhythm S1-S2, no rub or gallop Abdomen is is rounded ascites noted Extremities 2+ edema Neuro no gross focal neurological deficit - Labs CBC & Chem 7: 08/15/20 08:52 08/15/20 08:52 Assessment and Plan Assessment: 1. Abdominal ascites secondary to liver cirrhosis. Status post paracentesis with 8 L were removal. Fluid sent for cytology 2. Acute kidney injury. Creatinine continues to be elevated, decision by nephrology to start hemodialysis today 3. Anemia of chronic disease 4. History of COPD 5. History of hepatitis C 6. History of chronic pain 7. Essential hypertension 8. Blood in urine. Per urology recommending outpatient cystoscopy to rule out intravascular pathology DVT prophylaxis Lovenox. GI prophylaxis Pepcid GI, nephrology and urology service is consulted, awaiting recommendations
--- NOTE | 2020-08-16 15:18 | P.PN ---
Subjective Patient is seen in follow-up for acute kidney injury on chronic kidney disease. She has been voiding. No vomiting or diarrhea. Oral intake fair. She is maintained on spironolactone as well as Demadex. She is also on prednisone for possible IgA relapse. Started on HD 08/15 and tolerated first treatment well. Vital signs are stable. Blood pressure on the higher side. General: The patient appeared well nourished and normally developed. HEENT: Head exam is unremarkable. Neck is without jugular venous distension. LUNGS: Breath sounds decreased. HEART: Rate and Rhythm are regular. ABDOMEN: Soft, nontender. EXTREMITITES: 1+ edema. Objective - Vital Signs Vital signs: Vital Signs Temp 98 F 08/16/20 12:01 Pulse 60 08/16/20 12:01 Resp 18 08/16/20 12:01 BP 156/78 08/16/20 12:01 Pulse Ox 97 08/16/20 12:01 Intake & Output 08/15/20 08/16/20 08/16/20 18:59 06:59 18:59 Intake Total 240 Output Total 500 Balance 240 -500 Weight 93.4 kg Intake: Oral 240 Output: Hemodialysis 500 Other: Voiding Method Toilet # Voids 3 2 # Bowel Movements 1 - Labs CBC & Chem 7: 08/15/20 08:52 08/15/20 08:52 Assessment and Plan Plan: Assessment: 1. Acute kidney injury secondary to ATN. Hepatorenal syndrome cannot be ruled out. This also concern for IgA nephropathy relapse vs other GN given the protei pati and hematuria. Creatinine 4.66 as of 08/15 - started on HD. No hydronephrosis noted on CAT scan. 2. Decompensated liver cirrhosis. 3. Volume overload. Better with paracentesis and UF. 4. Ascites status post paracentesis on August 07 at 8 L drained. Another paracentesis done August 13 at 4.7 L drained. She did receive albumin pre-and post procedure. 5. Metabolic acidosis secondary to acute kidney injury. Maintained on oral bicarbonate. 6. Anemia of chronic kidney disease. Iron replete. Maintained on Aranesp. Status post blood transfusion this admission. 7. Hypertension with chronic kidney disease. Blood pressure better today. 8. Chronic kidney disease stage III with baseline creatinine near 1.5 secondary to IgA nephropathy. 9. Chronic kidney disease mineral bone disease. Phosphorous 6.3. Maintained on PhosLo. Plan: Maintain Demadex. Maintain spironolactone 50 mg twice daily. Will further increase clonidine dose if sbp staying above sbp 140. Serologies noted - hep C IgG antibody positive. Hepatitis B negative. CELESTINO, double-stranded DNA antibody, complement levels, ANCA normal. SPEP and UPEP negative. Prednisone added August 10 for possible IgA relapse. This will be gradually tapered outpatient. Side effects of steroids were discussed with the patient. Maintain PPI. Will add ACEi outpatient. I also discussed potential need for repeat kidney biopsy for definitive diagnosis and the associated risk of bleeding. She wants to hold off at this time. Patient changed her mind and now wanted to initiate renal replacement therapy now rather than waiting. Second treatment of HD today and third treatment tomorrow. She will be monitored for renal recovery outpatient. automation manager to help set up outpatient dialysis.
--- NOTE | 2020-08-16 15:39 | P.PN ---
Subjective Progress Note Date: 08/16/20 CHIEF COMPLAINT: Ascites with history of alcohol abuse HISTORY OF PRESENT ILLNESS: The patient is a 55-year-old female with abdominal ascites and renal failure. She is getting hemodialysis at bedside. She "my belly gets hard sometimes." She is tolerating renal diet. ROS: No reports of vomiting. No fevers or chills. No new chest pain. No productive sputum PHYSICAL EXAM: VITAL SIGNS: Reviewed CONSTITUTIONAL: Well developed and in no acute distress. EYES: Conjuctivae without sclera icterus. Extraocular movements grossly intact. HEAD, EARS, NOSE, THROAT: Moist buccal mucosa. Head is atraumatic, normocephalic. Hears conversational speech. No nasal drainage. NECK: Supple. No thyroidomegaly. RESPIRATORY: Non-labored respirations and equal bilateral excursions. CARDIOVASCULAR: Palpable 2+ radial pulses. ABDOMEN: No peritionitis. MUSCULOSKELETAL: No gross deformity of the lower extremities noted. No clubbing. No cyanosis. SKIN: Good skin turgor. Well perfused. NEUROLOGIC: Cranial nerves II through XII grossly intact. No focal or lateralizing signs. PSYCH: Appropriate affect. Alert and oriented to person, place and time. CLINICAL LABS:Reviewed. Hgb up 6.54 to 8.5. ASSESSMENT: 1. Ascites with liver cirrhosis 2. Alcohol abuse 3. Abdominal pain 4. Acute blood loss anemia 5. ESRD PLAN: 1. Hemodialysis per nephrology 2. Ultrasound assessment of ascites volume ordered to guide for paracentesis needs. Objective - Vital Signs Vital signs: Vital Signs Temp 98 F 08/16/20 12:01 Pulse 60 08/16/20 12:01 Resp 18 08/16/20 12:01 BP 156/78 08/16/20 12:01 Pulse Ox 97 08/16/20 12:01 Intake & Output 08/15/20 08/16/20 08/16/20 18:59 06:59 18:59 Intake Total 240 Output Total 500 Balance 240 -500 Weight 93.4 kg Intake: Oral 240 Output: Hemodialysis 500 Other: Voiding Method Toilet # Voids 3 2 # Bowel Movements 1 - Labs CBC & Chem 7: 08/15/20 08:52 08/15/20 08:52 Assessment and Plan (1) Abdominal ascites Current Visit: Yes Status: Acute Code(s): R18.8 - OTHER ASCITES SNOMED Code(s): 941881413 (2) Abdominal pain Current Visit: No Status: Acute Code(s): R10.9 - UNSPECIFIED ABDOMINAL PAIN SNOMED Code(s): 74291300 (3) Alcoholic cirrhosis of liver with ascites Current Visit: No Status: Acute Code(s): K70.31 - ALCOHOLIC CIRRHOSIS OF LIVER WITH ASCITES SNOMED Code(s): 232483789
--- NOTE | 2020-08-16 18:29 | US ---
EXAMINATION TYPE: US abdomen limited DATE OF EXAM: 08/16/2020 COMPARISON: 08/13/2020 and prior. CLINICAL HISTORY: Abdominal ascites, history paracentesis. Known ascites Scan of all four quadrants showed moderate amount of fluid. IMPRESSION: Recurrent moderate abdominal ascites.
[2020-08-17] MEDS: MORPHINE SULFATE 2 MG/ML SYRINGE IVP PRN ×2 (03:22→08:36)
[2020-08-17] MEDS: diphenhydrAMINE 25 MG CAP PO PRN ×2 (03:26→22:22)
[2020-08-17] MEDS: hydrALAZINE HCL 20 MG/ML 1 ML VIAL IVP PRN (05:47)
[2020-08-17] MEDS: HYDROcodone/APAP 10-325MG 1 EACH TAB PO PRN ×3 (05:47→16:52)
[2020-08-17] MEDS: LEVOTHYROXINE 50 MCG TAB PO SCH (05:47)
[2020-08-17] MEDS: cloNIDine HCL 0.1 MG TAB PO SCH ×3 (06:20→22:22)
[2020-08-17] MEDS: amLODIPine 5 MG TAB PO SCH ×2 (06:20→22:21)
--- NOTE | 2020-08-17 07:40 | IR ---
EXAMINATION TYPE: IR cvc insert central tunneled DATE OF EXAM: 08/14/2020 COMPARISON: NONE HISTORY: Fluoroscopy time. Fluoroscopy was provided to the referring clinician.
[2020-08-17] MEDS: NICOTINE 21MG/24HR PATCH TRANSDERM SCH (08:36)
[2020-08-17] MEDS: ENOXAPARIN 30 MG/0.3 ML SYRINGE SQ SCH (08:36)
[2020-08-17] MEDS: FERROUS SULFATE 325 MG TAB PO SCH (08:37)
[2020-08-17] MEDS: TORSEMIDE 20 MG TAB PO SCH (08:37)
[2020-08-17] MEDS: SPIRONOLACTONE 25 MG TAB PO SCH ×2 (08:37→22:23)
[2020-08-17] MEDS: MAGNESIUM OXIDE 400 MG TAB PO SCH (08:37)
[2020-08-17] MEDS: ALPRAZolam 0.25 MG TAB PO PRN ×2 (08:37→22:22)
[2020-08-17] MEDS: SODIUM BICARBONATE TAB 650 MG TAB PO SCH ×4 (08:37→22:23)
[2020-08-17] MEDS: hydrALAZINE HCL 50 MG TAB PO SCH ×3 (08:37→22:21)
[2020-08-17] MEDS: predniSONE 20 MG TAB PO SCH ×2 (08:37→22:24)
[2020-08-17] MEDS: allopurinoL 100 MG TAB PO SCH ×2 (08:37→22:22)
[2020-08-17] MEDS: carvediloL 12.5 MG TAB PO SCH ×2 (08:37→16:52)
[2020-08-17] MEDS: ISOSORBIDE MONONITRATE ER 30 MG TAB.ER.24H PO SCH (08:38)
[2020-08-17] MEDS: CALCIUM ACETATE 667 MG TAB PO SCH ×2 (08:38→16:51)
[2020-08-17] MEDS: FOLIC ACID 1 MG TAB PO SCH (08:38)
[2020-08-17] MEDS: PANTOPRAZOLE 40 MG TABLET PO SCH (08:38)
[2020-08-17 08:39] LABS: Basophils % (A) 0 %; Eosinophils % (A) 0 %; HCT 24.2 % (34.0-46.0); HGB 8.2 gm/dL (11.4-16.0); Lymphocytes # (A) 0.4 k/uL (1.0-4.8); Lymphocytes % (A) 14 %; MCH 31.8 pg (25.0-35.0); MCHC 33.7 g/dL (31.0-37.0); MCV 94.4 fL (80.0-100.0); Monocytes # (A) 0.3 k/uL (0-1.0); Monocytes % (A) 9 %; Neutrophils # (A) 2.3 k/uL (1.3-7.7); Neutrophils % (A) 75 %; Platelet Count 62 k/uL (150-450); RBC 2.57 m/uL (3.80-5.40); RDW 14.5 % (11.5-15.5); WBC 3.1 k/uL (3.8-10.6)
--- NOTE | 2020-08-17 10:14 | P.PN ---
Subjective Progress Note Date: 08/17/20 This is a 55-year-old female patient who presented to the ER with complaints of increased abdominal ascites. Patient has a known past medical history of liver cirrhosis in which she has required paracentesis is in the past. Per patient she has not received one in over a year but has not followed up with GI services. Upon admission patient was found to be in acute kidney failure with creatinine elevated at 5.68 and bun 42. Patient reports she has not been eating well and has been nauseated due to the abdominal ascites. Patient does reports she has been urinating. Additional medical history includes heart failure, COPD, GERD, essential hypertension and EtOH history. Patient denies any current alcohol use. Chest x-ray was completed showing some mild strandy bibasilar atelectasis. No acute process otherwise seen. KUB x-ray completed showing bowel gas pattern is nonspecific this could be part generalized ileus enters or early developing small bowel obstruction. CT of abdomen and pelvis completed showing moderately large amount of abdominal ascites unchanged subcutaneous edema around the abdomen unchanged irregular relatively small liver consistent with cirrhosis mild splenomegaly unchanged. At this time nephrology and GI services have been consulted. Patient also positive for blood in her urine which has been consistent with past urinary analysis. Patient was referred to neurology services by PCP but states she has not been able to see urologist will consult urology during inpatient stay. At this time patient denies any chest pain. Patient reports some shortness of breath. Patient denies nausea vomiting or diarrhea at this time. Patient denies any urinary burning or frequency On 08/07/2020 patient was seen and examined on the medical floor she is alert and oriented 3 in no apparent distress she is complaining of abdominal pain and distention otherwise she denies any complaints there is no fever or chills no headache or dizziness no chest pain no shortness of breath cough no nausea or vomiting no diarrhea no blood in the stools and no urinary symptoms On 08/08/2020 patient is alert and oriented 3. Patient reports improvement with abdominal discomfort since paracentesis. 8 L removed. Creatinine improving to 4.5. At this time patient denies chest pain or shortness breath. Patient denies nausea vomiting or diarrhea. Patient denies any urinary burning or frequency. On 08/09/2020 patient was seen and examined the medical floor she is alert and oriented 3 in no distress she is still complaining of abdominal pain she is complaining of painful rash in the left buttock area otherwise she denies any complaints there is no fever or chills no headache or dizziness no chest pain no shortness of breath no cough no nausea or vomiting no diarrhea no blood in the stools no burning with urination no frequency or urgency and no hematuria On 08/10/2020 patient is alert and oriented 3. Creatinine increasing to 4.81 bun is 37. Nephrology services are following. Patient also complaining of increased abdominal ascites. GI services are following. Patient denies chest pain or shortness of breath. Patient denies nausea vomiting or diarrhea. Patient denies any urinary burning or frequency. On 08/11/2020 patient was seen and examined on the medical floor she is alert and oriented 3 in no apparent distress she is complaining of abdominal pain and distention otherwise she denies any other complaints there is no fever or chills no headache or dizziness no chest pain no shortness of breath no cough no nausea or vomiting no diarrhea and no urinary symptoms kidney function is worsening again today BUN 39 creatinine 4.85 patient is anemic with hemoglobin of 7.8 On 08/12/2020 patient was seen and examined on the medical floor she is alert and oriented 3 planning of abdominal pain and distention otherwise she denies any complaints there is no fever or chills no headache or dizziness no chest pain no shortness of breath no cough no nausea or vomiting no diarrhea and no urinary symptoms she is scheduled for repeat paracentesis tomorrow On 08/13/2020 patient was seen and examined on the medical floor she is still complaining of abdominal pain otherwise she denies any complaints she underwent paracentesis today there is no fever or chills no headache or dizziness no chest pain no shortness of breath no cough no nausea or vomiting no abdominal pain no diarrhea and no urinary symptoms. On 08/14/2020 patient was seen and examined on the medical floor she is alert and oriented 3 she is still complaining of abdominal discomfort and pain she had paracentesis yesterday, hemoglobin today is down to 6.51 unit of red blood cell transfusion was ordered, BUN is still elevated at 54 creatinine elevated at 4.5 nephrology are following, otherwise patient denies any other complaints there is no fever or chills, no headache or dizziness no chest pain no shortness of breath no cough no nausea or vomiting no abdominal pain no diarrhea and no urinary symptoms, blood pressure remains severely elevated at 185/92, BP medications are being adjusted by nephrology. On 08/15/2020 patient was seen and examined on the medical floor she is alert and oriented 3 in no apparent distress , she is complaining of shortness of breath with any activity otherwise she denies any complaints there is no fever or chills no headache or dizziness no chest pain no palpitation no nausea or vomiting no abdominal pain no diarrhea no blood in the stools no burning with urination no frequency or urgency and no hematuria, at this time kidney functions are still worsening patient was evaluated by nephrology and decision was made to start with hemodialysis today. On 08/16/2020 patient was seen and examined on the medical floor she is alert and oriented 3 in no apparent distress she is feeling better she had her first session of hemodialysis yesterday she is scheduled for a second session of hemodialysis today there is no fever or chills no headache or dizziness no chest pain no shortness of breath no cough no nausea or vomiting no abdominal pain no diarrhea and no urinary symptoms. At this time will continue with current care she is scheduled for a second session of dialysis today Will reassess tomorrow possible discharge to home tomorrow if stable. On 08/17/2020 patient is alert and oriented 3. Patient to get hemodialysis for the third day today. Per nursing staff outpatient hemodialysis has not been arranged. Hopefully by 08/18/2020 outpatient dialysis will be arranged patient may be discharged home. At this time patient denies chest pain or shortness breath. Patient denies nausea vomiting or diarrhea. Patient denies any urinary burning or frequency Objective - Vital Signs Vital signs: Vital Signs Temp 98.2 F 08/17/20 05:00 Pulse 80 08/17/20 05:00 Resp 18 08/17/20 05:00 BP 192/95 08/17/20 06:17 Pulse Ox 97 08/17/20 05:00 Intake & Output 08/16/20 08/17/20 08/17/20 18:59 06:59 18:59 Intake Total 240 Output Total 1000 Balance -1000 240 Weight 92.1 kg Intake: Oral 240 Output: Hemodialysis 1000 Other: Voiding Method Toilet # Voids 2 1 - Exam In general patient is alert and oriented 3 Head normocephalic Neck supple no JVD no goiter Lungs crackles in both lung bases no wheezing Heart regular rate and rhythm S1-S2, no rub or gallop Abdomen is is rounded ascites noted Extremities 2+ edema Neuro no gross focal neurological deficit - Labs CBC & Chem 7: 08/17/20 06:42 08/15/20 08:52 Labs: Abnormal Lab Results - Last 24 Hours (Table) 08/17/20 Range/Units 06:42 WBC 3.1 L (3.8-10.6) k/uL RBC 2.57 L (3.80-5.40) m/uL Hgb 8.2 L (11.4-16.0) gm/dL Hct 24.2 L (34.0-46.0) % Plt Count 62 L (150-450) k/uL Lymphocytes # 0.4 L (1.0-4.8) k/uL Assessment and Plan Assessment: 1. Abdominal ascites secondary to liver cirrhosis. Status post paracentesis with 8 L were removal. Fluid sent for cytology 2. Acute on chronic kidney disease stage IV. Patient has been started on hemo dialysis. Patient to receive third day of hemodialysis on 122 outpatient hemodialysis to feeling case management. Nephrology services are following 3. Anemia of chronic disease 4. History of COPD 5. History of hepatitis C 6. History of chronic pain 7. Essential hypertension 8. Blood in urine. Per urology recommending outpatient cystoscopy to rule out intravascular pathology 9. Hypertension with chronic kidney disease. Currently being managed by nephrology services 10. Metabolic acidosis secondary to acute kidney injury. Maintained on oral bicarbonate DVT prophylaxis Lovenox. GI prophylaxis Pepcid GI and nephrology services are following Awaiting case management arrangement for outpatient hemodialysis likely discharge 08/18/2020
--- NOTE | 2020-08-17 10:32 | P.PN ---
Subjective Patient is seen in follow-up for acute kidney injury on chronic kidney disease. She has been voiding. No vomiting or diarrhea. Oral intake fair. She is maintained on spironolactone as well as Demadex. She is also on prednisone for possible IgA relapse. Started on HD 08/15 and has been tolerating the treatments were also far. No active complaints at this time. Vital signs are stable. Blood pressure on the higher side. General: The patient appeared well nourished and normally developed. HEENT: Head exam is unremarkable. Neck is without jugular venous distension. LUNGS: Breath sounds decreased. HEART: Rate and Rhythm are regular. ABDOMEN: Soft, nontender. Distention noted. EXTREMITITES: 1+ edema. Objective - Vital Signs Vital signs: Vital Signs Temp 98.2 F 08/17/20 05:00 Pulse 80 08/17/20 05:00 Resp 18 08/17/20 05:00 BP 192/95 08/17/20 06:17 Pulse Ox 97 08/17/20 05:00 Intake & Output 08/16/20 08/17/20 08/17/20 18:59 06:59 18:59 Intake Total 240 Output Total 1000 Balance -1000 240 Weight 92.1 kg Intake: Oral 240 Output: Hemodialysis 1000 Other: Voiding Method Toilet # Voids 2 1 - Labs CBC & Chem 7: 08/17/20 06:42 08/15/20 08:52 Labs: Abnormal Lab Results - Last 24 Hours (Table) 08/17/20 Range/Units 06:42 WBC 3.1 L (3.8-10.6) k/uL RBC 2.57 L (3.80-5.40) m/uL Hgb 8.2 L (11.4-16.0) gm/dL Hct 24.2 L (34.0-46.0) % Plt Count 62 L (150-450) k/uL Lymphocytes # 0.4 L (1.0-4.8) k/uL Assessment and Plan Plan: Assessment: 1. Acute kidney injury secondary to ATN. Hepatorenal syndrome cannot be ruled out. This also concern for IgA nephropathy relapse vs other GN given the proteinuria and hematuria. Creatinine 4.66 as of 08/15 - started on HD. No hydronephrosis noted on CAT scan. 2. Decompensated liver cirrhosis. 3. Volume overload. Better with paracentesis and UF. 4. Ascites status post paracentesis on August 07 at 8 L drained. Another paracentesis done August 13 at 4.7 L drained. She did receive albumin pre-and post procedure. 5. Metabolic acidosis secondary to acute kidney injury. Maintained on oral bicarbonate. 6. Anemia of chronic kidney disease. Iron replete. Maintained on Aranesp. Status post blood transfusion this admission. 7. Hypertension with chronic kidney disease. Blood pressure again high. 8. Chronic kidney disease stage III with baseline creatinine near 1.5 secondary to IgA nephropathy. 9. Chronic kidney disease mineral bone disease. Phosphorous 6.3. Maintained on PhosLo. Plan: Maintain Demadex. Maintain spironolactone 50 mg twice daily. Increase amlodipine to 5 mg twice daily. Increase clonidine to 0.3 mg 3 times daily. Serologies noted - hep C IgG antibody positive. Hepatitis B negative. CELESTINO, double-stranded DNA antibody, complement levels, ANCA normal. SPEP and UPEP negative. Prednisone added August 10 for possible IgA relapse. This will be gradually tapered outpatient. Side effects of steroids were discussed with the patient. Maintain PPI. Will add ANGELIQUE inhibitor if blood pressure remains elevated I also discussed potential need for repeat kidney biopsy for definitive diagnosis and the associated risk of bleeding. She wants to hold off at this time. Patient changed her mind and wanted to initiate renal replacement therapy now rather than waiting. Third treatment of hemodialysis today. Will try for 2 L ultrafiltration. She will be monitored for renal recovery outpatient. manager pmo to help set up outpatient dialysis.
--- NOTE | 2020-08-17 10:57 | PN ---
PROGRESS NOTE DATE OF SERVICE: August 17, 2020 Patient is a 55-year-old pleasant white female admitted to the hospital with ascites/secondary to cirrhosis from history of chronic hepatitis C infection. She was started on hemodialysis 3 days ago. Today, she is complaining of mild abdominal distention. No abdominal pain. No nausea, vomiting. PHYSICAL EXAMINATION: Appears comfortable, no apparent distress. VITAL SIGNS: Stable. Blood pressure is 133/82, pulse rate 82 per minute and afebrile. HEENT examination unremarkable. Conjunctivae pink. Sclerae anicteric. Oral cavity no lesions. Neck: No JVD. No lymph node enlargement. CHEST: Clear to auscultation. HEART: Regular rate and rhythm. ABDOMEN: Soft. Abdomen is slightly distended. Bowel sounds are positive. Extremities: No pedal edema. NEUROLOGIC: Alert and oriented x3. No focal deficits. LABS: From today WBC 3.1, hemoglobin 8.2, platelets 62. IMPRESSION: 1. Recurrent ascites secondary to cirrhosis of the liver from prior history of chronic hepatitis C infection status post paracentesis x2 during this hospitalization. Last 1 was 4 days ago. 2. End-stage renal disease, started hemodialysis 3 days ago. 3. Anemia of chronic disease. RECOMMENDATIONS: 1. Continue with symptomatic and supportive care. 2. No need for a repeat paracentesis as of now. We will reassess her tomorrow and decide if she needs one before discharge from the hospital. 3. We will follow with you closely. Thank you for this consultation. MMODL / IJN: [id number] /
[2020-08-17 12:38] LABS: African American GFR (CKD) 22.3 (60.0-200.0); Albumin 2.7 g/dL (3.80-4.90); Albumin/Globulin Ratio 1.29 (1.60-3.17); Anion Gap 7.6 mmol/L (4.00-12.00); BUN/Creat Ratio 11.85 Ratio (12.00-20.00); Carbon Dioxide 27.4 mmol/L (21.6-31.8); Globulin 2.1 g/dL (1.6-3.3); Magnesium 1.8 mg/dL (1.5-2.4); Non-African American GFR(CKD) 19.2 (60.0-200.0); Phosphorus 3.9 mg/dL (2.4-5.1); Potassium 4.1 mmol/L (3.5-5.5); Total Bilirubin 0.2 mg/dL (0.3-1.2); Total Protein 4.8 g/dL (6.2-8.2)
--- NOTE | 2020-08-17 16:33 | P.PN ---
Subjective Progress Note Date: 08/17/20 CHIEF COMPLAINT: Ascites with history of alcohol abuse HISTORY OF PRESENT ILLNESS: The patient is a 55-year-old female with abdominal ascites and renal failure. She received hemodialysis yesterday. She reports increased abdominal swelling from her ascites similar to her paracentesis 1 week ago. She is eager to go home. She has history of liver cirrhosis. ROS: No reports of vomiting. No fevers or chills. No new chest pain. No productive sputum PHYSICAL EXAM: VITAL SIGNS: Reviewed CONSTITUTIONAL: Well developed and in no acute distress. EYES: Conjuctivae without sclera icterus. Extraocular movements grossly intact. HEAD, EARS, NOSE, THROAT: Moist buccal mucosa. Head is atraumatic, no rmocephalic. Hears conversational speech. No nasal drainage. NECK: Supple. No thyroidomegaly. RESPIRATORY: Non-labored respirations and equal bilateral excursions. CARDIOVASCULAR: Palpable 2+ radial pulses. ABDOMEN: Abdomen tense. No gross peritonitis. Ascites present. MUSCULOSKELETAL: No gross deformity of the lower extremities noted. No clubbing. No cyanosis. SKIN: Good skin turgor. Well perfused. NEUROLOGIC: Cranial nerves II through XII grossly intact. No focal or lateralizing signs. PSYCH: Appropriate affect. Alert and oriented to person, place and time. CLINICAL LABS: Reviewed. Platelets less than 100. Hemoglobin stable 8.2. REPORTS: I ordered ultrasound of the abdomen for ascites with findings consistent with moderate abdominal ascites consistent with patient's symptoms. ASSESSMENT: 1. Ascites with liver cirrhosis 2. Alcohol abuse 3. Abdominal pain 4. Acute blood loss anemia 5. ESRD PLAN: 1. She has symptomatic ascites however with baseline thrombocytopenia. 2. Ultrasound-guided drainage for paracentesis reviewed and may be of benefit 3. Patient does present with elevated risks with end-stage renal disease including thrombocytopenia Objective - Vital Signs Vital signs: Vital Signs Temp 98.3 F 08/17/20 11:59 Pulse 70 08/17/20 11:59 Resp 18 08/17/20 11:59 BP 137/74 08/17/20 11:59 Pulse Ox 97 08/17/20 11:59 Intake & Output 08/16/20 08/17/20 08/17/20 18:59 06:59 18:59 Intake Total 240 Output Total 1000 Balance -1000 240 Weight 92.1 kg Intake: Oral 240 Output: Hemodialysis 1000 Other: Voiding Method Toilet # Voids 2 1 - Labs CBC & Chem 7: 08/17/20 06:42 08/17/20 06:42 Labs: Abnormal Lab Results - Last 24 Hours (Table) 08/17/20 08/17/20 Range/Units 06:42 06:42 WBC 3.1 L (3.8-10.6) k/uL RBC 2.57 L (3.80-5.40) m/uL Hgb 8.2 L (11.4-16.0) gm/dL Hct 24.2 L (34.0-46.0) % Plt Count 62 L (150-450) k/uL Lymphocytes # 0.4 L (1.0-4.8) k/uL BUN 32.0 H (9.0-27.0) mg/dL Creatinine 2.7 H (0.6-1.5) mg/dL Est GFR (CKD-EPI)AfAm 22.3 L (60.0-200.0) Est GFR (CKD-EPI)NonAf 19.2 L (60.0-200.0) BUN/Creatinine Ratio 11.85 L (12.00-20.00) Ratio Calcium 8.0 L (8.7-10.3) mg/dL Total Bilirubin 0.2 L (0.3-1.2) mg/dL Alkaline Phosphatase 37 L (41-126) U/L Total Protein 4.8 L (6.2-8.2) g/dL Albumin 2.70 L (3.80-4.90) g/dL Albumin/Globulin Ratio 1.29 L (1.60-3.17) g/dL Assessment and Plan (1) Abdominal ascites Current Visit: Yes Status: Acute Code(s): R18.8 - OTHER ASCITES SNOMED Code(s): 268145361 (2) Abdominal pain Current Visit: No Status: Acute Code(s): R10.9 - UNSPECIFIED ABDOMINAL PAIN SNOMED Code(s): 93817420 (3) Alcoholic cirrhosis of liver with ascites Current Visit: No Status: Acute Code(s): K70.31 - ALCOHOLIC CIRRHOSIS OF LIVER WITH ASCITES SNOMED Code(s): 092521885 (4) Acute kidney failure Current Visit: Yes Status: Acute Code(s): N17.9 - ACUTE KIDNEY FAILURE, UNSPECIFIED SNOMED Code(s): 20066730 (5) History of ETOH abuse Current Visit: No Status: Acute Code(s): Z87.898 - PERSONAL HISTORY OF OTHER SPECIFIED CONDITIONS SNOMED Code(s): 244156555 (6) Thrombocytopenia Current Visit: No Status: Acute Code(s): D69.6 - THROMBOCYTOPENIA, UNSPECIFIED SNOMED Code(s): 142989012
[2020-08-18] MEDS: MORPHINE SULFATE 2 MG/ML SYRINGE IVP PRN ×2 (03:01→10:59)
[2020-08-18] MEDS: LEVOTHYROXINE 50 MCG TAB PO SCH (05:19)
[2020-08-18] MEDS: NICOTINE 21MG/24HR PATCH TRANSDERM SCH (07:43)
[2020-08-18] MEDS: FOLIC ACID 1 MG TAB PO SCH (07:43)
[2020-08-18] MEDS: carvediloL 12.5 MG TAB PO SCH (07:43)
[2020-08-18] MEDS: FERROUS SULFATE 325 MG TAB PO SCH (07:43)
[2020-08-18] MEDS: HYDROcodone/APAP 10-325MG 1 EACH TAB PO PRN (07:43)
[2020-08-18] MEDS: allopurinoL 100 MG TAB PO SCH (07:43)
[2020-08-18] MEDS: cloNIDine HCL 0.1 MG TAB PO SCH (07:43)
[2020-08-18] MEDS: SODIUM BICARBONATE TAB 650 MG TAB PO SCH (07:43)
[2020-08-18] MEDS: hydrALAZINE HCL 50 MG TAB PO SCH (07:43)
[2020-08-18] MEDS: ENOXAPARIN 30 MG/0.3 ML SYRINGE SQ SCH (07:44)
[2020-08-18] MEDS: SPIRONOLACTONE 25 MG TAB PO SCH (07:44)
[2020-08-18] MEDS: CALCIUM ACETATE 667 MG TAB PO SCH (07:44)
[2020-08-18] MEDS: amLODIPine 5 MG TAB PO SCH (07:44)
[2020-08-18] MEDS: PANTOPRAZOLE 40 MG TABLET PO SCH (07:44)
[2020-08-18] MEDS: TORSEMIDE 20 MG TAB PO SCH (07:44)
[2020-08-18] MEDS: ISOSORBIDE MONONITRATE ER 30 MG TAB.ER.24H PO SCH (07:44)
[2020-08-18] MEDS: predniSONE 20 MG TAB PO SCH (07:44)
[2020-08-18] MEDS: MAGNESIUM OXIDE 400 MG TAB PO SCH (07:44)
[2020-08-18] MEDS: ERGOCALCIFEROL 50,000 UNIT CAP PO SCH (07:45)
[2020-08-18] MEDS ORDERED: lisinopriL 5 MG TAB PO SCH (10:30)
--- NOTE | 2020-08-18 10:31 | P.PN ---
Subjective Patient is seen in follow-up for acute kidney injury on chronic kidney disease. She has been voiding. No vomiting or diarrhea. Oral intake fair. She is maintained on spironolactone as well as Demadex. She is also on prednisone for possible IgA relapse. Started on HD 08/15 and has been tolerating the treatments were also far. No active complaints at this time. Tolerating dialysis well. Vital signs are stable. Blood pressure on the higher side. General: The patient appeared well nourished and normally developed. HEENT: Head exam is unremarkable. Neck is without jugular venous distension. LUNGS: Breath sounds decreased. HEART: Rate and Rhythm are regular. ABDOMEN: Soft, nontender. Distention noted. EXTREMITITES: 1+ edema. Objective - Vital Signs Vital signs: Vital Signs Temp 98.1 F 08/18/20 05:15 Pulse 66 08/18/20 05:15 Resp 16 08/18/20 05:15 BP 167/84 08/18/20 05:15 Pulse Ox 95 08/18/20 05:15 Intake & Output 08/17/20 08/18/20 08/18/20 18:59 06:59 18:59 Intake Total 480 600 Balance 480 600 Weight 92.3 kg Intake: Oral 480 600 Other: # Voids 1 - Labs CBC & Chem 7: 08/17/20 06:42 08/17/20 06:42 Labs: Abnormal Lab Results - Last 24 Hours (Table) 08/17/20 Range/Units 06:42 BUN 32.0 H (9.0-27.0) mg/dL Creatinine 2.7 H (0.6-1.5) mg/dL Est GFR (CKD-EPI)AfAm 22.3 L (60.0-200.0) Est GFR (CKD-EPI)NonAf 19.2 L (60.0-200.0) BUN/Creatinine Ratio 11.85 L (12.00-20.00) Ratio Calcium 8.0 L (8.7-10.3) mg/dL Total Bilirubin 0.2 L (0.3-1.2) mg/dL Alkaline Phosphatase 37 L (41-126) U/L Total Protein 4.8 L (6.2-8.2) g/dL Albumin 2.70 L (3.80-4.90) g/dL Albumin/Globulin Ratio 1.29 L (1.60-3.17) g/dL Assessment and Plan Plan: Assessment: 1. Acute kidney injury secondary to ATN. Hepatorenal syndrome cannot be ruled out. This also concern for IgA nephropathy relapse vs other GN given the proteinuria and hematuria. Creatinine 4.66 as of 08/15 - started on HD. No hydronephrosis noted on CAT scan. 2. Decompensated liver cirrhosis. 3. Volume overload. Better with paracentesis and UF. 4. Ascites status post paracentesis on August 07 at 8 L drained. Another paracentesis done August 13 at 4.7 L drained. She did receive albumin pre-and post procedure. 5. Metabolic acidosis secondary to acute kidney injury. Improved postdialysis. Maintained on oral bicarbonate. 6. Anemia of chronic kidney disease. Iron replete. Maintained on Aranesp. Status post blood transfusion this admission. 7. Hypertension with chronic kidney disease. Blood pressure currently controlled during dialysis. Systolic blood pressure in the 140s. 8. Chronic kidney disease stage III with baseline creatinine near 1.5 secondary to IgA nephropathy. 9. Chronic kidney disease mineral bone disease. Phosphorous 6.3 - repeat 3.9. Maintained on PhosLo. Plan: Maintain Demadex. Maintain spironolactone 50 mg twice daily. Serologies noted - hep C IgG antibody positive. Hepatitis B negative. CELESTINO, double-stranded DNA antibody, complement levels, ANCA normal. SPEP and UPEP negative. Prednisone added August 10 for possible IgA relapse. This will be gradually tapered outpatient. Side effects of steroids were discussed with the patient. Maintain PPI. Add low-dose ANGELIQUE inhibitor. Decrease bicarbonate. I also discussed potential need for repeat kidney biopsy for definitive diagnosis and the associated risk of bleeding. She wants to hold off at this time. Patient changed her mind and wanted to initiate renal replacement therapy now rather than waiting. Currently seen while undergoing hemodialysis. She refused a treatment yesterday. Try for 2-2-1/2 L UF. She will be monitored for renal recovery outpatient. operations project manager to help set up outpatient dialysis.
--- NOTE | 2020-08-18 10:47 | P.PN ---
Subjective Progress Note Date: 08/18/20 CHIEF COMPLAINT: Abdominal pain HISTORY OF PRESENT ILLNESS: Patient is being followed for her abdominal pain. She had large abdominal ascites which contributed to patient's pain. Patient has required 2 paracentesis during this admission. She denies any abdominal pain. She is receiving hemodialysis today. Hemodialysis started during this admission. Patient is afebrile. Tolerating regular diet. Hemoglobin 8.2 creatinine 2.7 PHYSICAL EXAM: VITAL SIGNS: Reviewed. GENERAL: Well-developed in no acute distress. HEENT: No sclera icterus. Extraocular movements grossly intact. Moist buccal mucosa. Head is atraumatic, normocephalic. ABDOMEN: Soft. abdominal distention. Ascites present but better than yesterday NEUROLOGIC: Alert and oriented. Cranial nerves II through XII grossly intact. ASSESSMENT: 1. Abdominal pain likely due to abdominal ascites. Shown improvement 2. History of liver cirrhosis with abdominal ascites requiring paracentesis. 3. Anemia of chronic kidney disease 4. End-stage renal disease started on hemodialysis during this admission PLAN: -No surgical intervention planned -Patient scheduled for abdominal ultrasound with possible paracentesis today -Continue supportive care -Continue regular, renal diet, sodium restriction Physician Pinion Staker note has been reviewed by physician. Signing provider agrees with the documented findings, assessment, and plan of care. Objective - Vital Signs Vital signs: Vital Signs Temp 98.1 F 08/18/20 05:15 Pulse 66 08/18/20 05:15 Resp 16 08/18/20 05:15 BP 167/84 08/18/20 05:15 Pulse Ox 95 08/18/20 05:15 Intake & Output 08/17/20 08/18/20 08/18/20 18:59 06:59 18:59 Intake Total 480 600 Balance 480 600 Weight 92.3 kg Intake: Oral 480 600 Other: # Voids 1 - Labs CBC & Chem 7: 08/17/20 06:42 08/17/20 06:42 Labs: Abnormal Lab Results - Last 24 Hours (Table) 08/17/20 Range/Units 06:42 BUN 32.0 H (9.0-27.0) mg/dL Creatinine 2.7 H (0.6-1.5) mg/dL Est GFR (CKD-EPI)AfAm 22.3 L (60.0-200.0) Est GFR (CKD-EPI)NonAf 19.2 L (60.0-200.0) BUN/Creatinine Ratio 11.85 L (12.00-20.00) Ratio Calcium 8.0 L (8.7-10.3) mg/dL Total Bilirubin 0.2 L (0.3-1.2) mg/dL Alkaline Phosphatase 37 L (41-126) U/L Total Protein 4.8 L (6.2-8.2) g/dL Albumin 2.70 L (3.80-4.90) g/dL Albumin/Globulin Ratio 1.29 L (1.60-3.17) g/dL
[2020-08-18 11:12] LABS: African American GFR (CKD) 16.8 (60.0-200.0); BUN/Creat Ratio 12.35 Ratio (12.00-20.00); Magnesium 1.9 mg/dL (1.5-2.4); Non-African American GFR(CKD) 14.5 (60.0-200.0); Phosphorus 4.6 mg/dL (2.4-5.1); Potassium 4.3 mmol/L (3.5-5.5)
--- NOTE | 2020-08-18 12:42 | P.PN ---
Subjective Progress Note Date: 08/18/20 Principal diagnosis: Decompensated cirrhosis, ascites The patient was seen and examined at the bedside. She was receiving hemodialysis today, this is her third treatment. She states she is overall feeling well. Abdominal distention is improved since last paracentesis. She de nies any abdominal pain, nausea, or vomiting. Bowel movements are normal. Plan is for discharge home today with outpatient hemodialysis. Objective - Vital Signs Vital signs: Vital Signs Temp 98.1 F 08/18/20 05:15 Pulse 66 08/18/20 05:15 Resp 16 08/18/20 05:15 BP 167/84 08/18/20 05:15 Pulse Ox 95 08/18/20 05:15 Intake & Output 08/17/20 08/18/20 08/18/20 18:59 06:59 18:59 Intake Total 480 600 600 Balance 480 600 600 Weight 92.3 kg Intake: Oral 480 600 600 Other: # Voids 1 - Exam General appearance: The patient is alert, oriented, in no acute distress. HET: Head is normocephalic and atraumatic. Conjunctiva pink. Sclera anicteric. Neck: Supple without lymphadenopathy. Abdomen: Soft, nontender, nondistended with bowel sounds. No guarding or rigidity. Extremities: Normal skin color and turgor. No pedal edema Neurological: No focal deficits. Alert and oriented 3. - Labs CBC & Chem 7: 08/17/20 06:42 08/18/20 07:23 Labs: Abnormal Lab Results - Last 24 Hours (Table) 08/18/20 Range/Units 07:23 BUN 42.0 H (9.0-27.0) mg/dL Creatinine 3.4 H (0.6-1.5) mg/dL Est GFR (CKD-EPI)AfAm 16.8 L (60.0-200.0) Est GFR (CKD-EPI)NonAf 14.5 L (60.0-200.0) Glucose 121 H (70-110) mg/dL Calcium 8.0 L (8.7-10.3) mg/dL Assessment and Plan Assessment: 1. Decompensated liver disease 2. Ascites, status post large volume paracentesis 2 during this admission 3. Acute kidney injury, superimposed on chronic kidney disease, being followed by Dr. Angelo closely. She is on prednisone for relapse of IgA nephropathy. Status post tunneled dialysis catheter placement and hemodialysis 4. Metabolic acidosis Plan: 1. Large volume paracentesis completed 2. Continue with current diuretic regimen and hemodialysis per Dr. Angelo 3. Monitor LFTs closely 4. Transfuse if hemoglobin less than 7 5. Patient may be discharged home from a gastroenterology standpoint once cleared by medicine, script given for therapeutic paracentesis every 2 weeks, we will sign off at this time The impression and plan of care has been dictated as directed. Dr. العلي I performed a history and examination of this patient, discussed the same with the dictator. I agree with the dictator's note ,documented as a scribe. Any additional findings or plans will be noted.
[2020-08-18 12:51] VITALS: BP 131/78; PULSE 62; RESP 18; TEMP 97.9
[2020-08-18] MEDS ORDERED: SODIUM BICARBONATE TAB 650 MG TAB PO SCH (21:00)
== END 2020-08-18 14:38 | disposition home or self-care (01) | DRG 432 ==
LOC: EC 14:32 → 4SSUR 17:02 → 6PED 08-09 16:42 → 6NMEDSUR 08-11 22:22 → 4SSUR 08-17 17:46
PROVIDERS: ADMIT Internal Medicine; ATTEND Internal Medicine
PROC: 30233N1 Transfusion of Nonautologous Red Blood Cells into Peripheral Vein, Percutaneous Approach (ICD-10-PCS; 2020-08-06)
PROC: 0W9G3ZX Drainage of Peritoneal Cavity, Percutaneous Approach, Diagnostic (ICD-10-PCS; 2020-08-07)
PROC: 0W9G3ZZ Drainage of Peritoneal Cavity, Percutaneous Approach (ICD-10-PCS; 2020-08-13)
PROC: 02HV33Z Insertion of Infusion Device into Superior Vena Cava, Percutaneous Approach (ICD-10-PCS; principal; 2020-08-14 11:30)
PROC: 5A1D70Z Performance of Urinary Filtration, Intermittent, Less than 6 Hours Per Day (ICD-10-PCS; 2020-08-15)
DX: K70.31 Alcoholic cirrhosis of liver with ascites (principal); K76.7 Hepatorenal syndrome; N17.0 Acute kidney failure with tubular necrosis; N18.6 End stage renal disease; K76.6 Portal hypertension; D62 Acute posthemorrhagic anemia; E87.2 Acidosis; I13.2 Hypertensive heart and chronic kidney disease with heart failure and with stage 5 chronic kidney disease, or end stage renal disease; J98.11 Atelectasis; K56.7 Ileus, unspecified; N02.8 Recurrent and persistent hematuria with other morphologic changes; Z20.828 Contact with and (suspected) exposure to other viral communicable diseases; E83.9 Disorder of mineral metabolism, unspecified; B02.9 Zoster without complications; Z86.19 Personal history of other infectious and parasitic diseases; D53.9 Nutritional anemia, unspecified; D63.1 Anemia in chronic kidney disease; D69.6 Thrombocytopenia, unspecified; E78.5 Hyperlipidemia, unspecified; E86.9 Volume depletion, unspecified; F10.11 Alcohol abuse, in remission; F17.210 Nicotine dependence, cigarettes, uncomplicated; F40.240 Claustrophobia; I50.9 Heart failure, unspecified; J44.9 Chronic obstructive pulmonary disease, unspecified; K29.70 Gastritis, unspecified, without bleeding; F32.9 Major depressive disorder, single episode, unspecified; Z79.890 Hormone replacement therapy; Z79.899 Other long term (current) drug therapy; Z82.0 Family history of epilepsy and other diseases of the nervous system; Z82.49 Family history of ischemic heart disease and other diseases of the circulatory system; Z80.9 Family history of malignant neoplasm, unspecified; Z83.2 Family history of diseases of the blood and blood-forming organs and certain disorders involving the immune mechanism; Z88.8 Allergy status to other drugs, medicaments and biological substances; F41.9 Anxiety disorder, unspecified; M54.5 Low back pain; Z98.51 Tubal ligation status; Z87.440 Personal history of urinary (tract) infections; Z99.2 Dependence on renal dialysis
CPT/HCPCS: 36415; 36558; 49083; 71045; 71046; 74018; 74176; 76705; 76937; 77001; 80048; 80053; 80074; 81001; 82042; 82570; 82728; 83540; 83550; 83605; 83690; 83735; 84100; 84156; 84157; 84165; 85025; 85027; 85049; 85610; 86038; 86160; 86162; 86225; 86255; 86334; 86335; 86850; 86900; 86901; 86920; 87070; 87075; 87205; 87635; 88108; 88305; 89050; 90935; 93005; 94640; 96361; 96374; 96375; 96376; 99285

== ENCOUNTER 2021-02-09 06:12 | Day surgery (SDC) | payer OTHER ==
[2021-02-05 13:22] VITALS: BMI 31.9
[~2021-02-09 06:12] MED LIST changes: +ACETAMINOPHEN TAB 500 MG TAB PO PRN; +DEXAMETHASONE SOD PHOSPHATE 4 MG/ML 1 ML VIAL IV ONE; +HEPARIN SODIUM,PORCINE/PF 5,000 UNIT/0.5 ML SYRINGE SQ PRN; -LIDOCAINE 1% (10MG/ML) FOR IV START INTRADERMA PRN; +MIDAZOLAM 2 MG/2 ML VIAL IV PRN; +ONDANSETRON 4 MG/2 ML VIAL IVP ONE; +SCOPOLAMINE 1.5MG/72HR PATCH TRANSDERM ONE
[2021-02-09] MEDS ORDERED: HYDROmorphone 0.5 MG/0.5 ML SYRINGE IVP PRN (07:00)
[2021-02-09] MEDS ORDERED: SODIUM CHLORIDE 0.9% 500 ML 500 ML IV ONE ×2 (07:20)
[2021-02-09] MEDS ORDERED: LIDOCAINE 1% (10MG/ML) FOR IV START INTRADERMA ONE (07:21)
--- NOTE | 2021-02-09 07:44 | P.GSHP ---
History of Present Illness H&P Date: 02/09/21 Chief Complaint: Renal failure 56-year-old female here today for peritoneal dialysis catheter insertion. Patient has been on hemodialysis since last fall. She would like to switch to peritoneal dialysis. She has a history of liver disease from hepatitis C. She did require paracentesis on several occasions in the past. Only abdominal surgery tubal ligation. Past Medical History Past Medical History: COPD, GERD/Reflux, Hypertension, Liver Disease, Renal Disease Additional Past Medical History / Comment(s): hx: Hep C-remission, alcoholic liver cirrhosis, portal HTN, abdominal ascities, IGA nephropathy, thromobocytopenia, CKD stage IV, anemia, severe protein calorie malnutrition, frequent diarrhea, low back pain from an injury, peritoneal dialysis ,,sat History of Any Multi-Drug Resistant Organisms: None Reported Past Surgical History: Tubal Ligation Additional Past Surgical History / Comment(s): multiple Paracentesis Past Anesthesia/Blood Transfusion Reactions: No Reported Reaction Additional Past Anesthesia/Blood Transfusion Reaction / Comment(s): claustrophob ia Smoking Status: Current every day smoker - Past Family History Father History Unknown: Yes Family Medical History: Cancer Additional Family Medical History / Comment(s): Unk type of cancer. Father is . Mother History Unknown: Yes Family Medical History: AFIB, Congestive Heart Failure (CHF), Deep Vein Thrombosis (DVT), Myocardial Infarction (PR), Seizure Disorder Additional Family Medical History / Comment(s): Mother had a PR at the age of 52 yrs. She is . Poss DVT. Medications and Allergies Home Medications Medication Instructions Recorded Confirmed Type ALPRAZolam [Xanax] 0.25 mg PO BID PRN 09/13/18 02/09/21 History Metoprolol Tartrate 25 mg PO DAILY 09/13/18 02/09/21 History HYDROcodone/APAP 10-325MG [[place] 1 tab PO BID PRN 11/21/18 02/09/21 History 10-325] Pantoprazole Sodium [Protonix] 40 mg PO DAILY 01/12/19 02/09/21 History allopurinoL [Zyloprim] 100 mg PO BID 01/12/19 02/09/21 History Folic Acid 0.4 mg PO DAILY 07/08/19 02/09/21 History Magnesium Oxide 400 mg PO DAILY 07/08/19 02/09/21 History Ergocalciferol [Vitamin D2 50,000 unit PO MO 03/10/20 02/09/21 History (DRISDOL)] Ferrous Sulfate [Iron (65 MG 325 mg PO DAILY 03/10/20 02/09/21 History Elemental)] Levothyroxine Sodium [Synthroid] 50 mcg PO DAILY 03/10/20 02/09/21 History Isosorbide Mononitrate ER [Imdur] 30 mg PO DAILY 08/05/20 02/09/21 History Calcium Acetate [PhosLo] 667 mg PO BID-W/MEALS tab 08/18/20 02/09/21 Rx Nicotine 21Mg/24Hr Patch [Habitrol] 1 patch TRANSDERM DAILY patch 08/18/20 02/09/21 Rx Sodium Bicarbonate Tab 650 mg PO BID tab 08/18/20 02/09/21 Rx Spironolactone [Aldactone] 50 mg PO BID tab 08/18/20 02/09/21 Rx Torsemide [Demadex] 20 mg PO DAILY tab 08/18/20 02/09/21 Rx amLODIPine [Norvasc] 5 mg PO BID tab 08/18/20 02/09/21 Rx Allergies Allergy/AdvReac Type Severity Reaction Status Date / Time bupropion [From Wellbutrin] AdvReac seizure Verified 02/05/21 13:04 Surgical - Exam Vital Signs Temp Pulse Resp BP Pulse Ox 97.3 F L 70 16 102/56 100 02/09/21 06:58 02/09/21 06:58 02/09/21 06:58 02/09/21 06:58 02/09/21 06:58 Physical exam: General: Well-developed, well-nourished HEENT: Normocephalic, sclerae nonicteric Abdomen: Nontender, nondistended Extremities: No edema Neuro: Alert and oriented Assessment and Plan (1) Acute kidney failure Narrative/Plan: Will proceed with peritoneal dialysis catheter insertion today. Risks of bleeding, infection, scarring, poor function, bowel injury reviewed. She understands and wishes to proceed. Current Visit: No Status: Acute Code(s): N17.9 - ACUTE KIDNEY FAILURE, UNSPECIFIED SNOMED Code(s): 79308857
[2021-02-09] MEDS ORDERED: PROPOFOL 10 MG/ML 20 ML VIAL IV ONE (07:52)
[2021-02-09] MEDS ORDERED: fentaNYL (PF) 50 MCG/ML 2 ML AMP ONE (07:52)
[2021-02-09] MEDS ORDERED: MIDAZOLAM 2 MG/2 ML VIAL ONE (07:52)
[2021-02-09] MEDS ORDERED: LIDOCAINE 1% INJ 10MG/ML (20 ML MDV) ONE (07:52)
[2021-02-09] MEDS ORDERED: BUPIVACAIN-EPI 0.5%-1:200,000 30 ML VIAL SQ ONE ×2 (08:11)
[2021-02-09] MEDS ORDERED: MINERAL OIL 1 APPLIC/ML OIL TOPICAL ONE (08:22)
[2021-02-09] MEDS ORDERED: NALOXONE 0.4 MG/ML 1 ML VIAL IV PRN (08:41)
[2021-02-09] MEDS ORDERED: HYDROcodone/APAP 5-325MG 1 EACH TAB PO PRN (08:41)
--- NOTE | 2021-02-09 08:47 | P.OP ---
Date of Procedure: 02/09/21 Procedure(s) Performed: PREOPERATIVE DIAGNOSIS: Renal failure POSTOPERATIVE DIAGNOSIS: Same PROCEDURE: Peritoneal dialysis catheter insertion SURGEON: Susy EBL: Minimal ANESTHESIA: Sedation plus local COMPLICATIONS: None OPERATIVE PROCEDURE: The patient was placed in the operative table in the supine position. Her abdomen was prepped and draped in usual sterile fashion. A small vertical incision was made in the left periumbilical location. Dissection down through the subcutaneous tissues took place using electrocautery. A single vessel was divided using a 3-0 Vicryl tie. The anterior rectus was divided vertically using the scalpel. The rectus was bluntly. The posterior rectus was visualized. An 0 Vicryl pursestring was placed. A small opening in the posterior rectus fascia and peritoneum took place using a Metzenbaum scissors. There were no adhesions to the suture that was placed. The pigtail catheter was advanced into the pelvis over a stylette. No resistance was met. The inner cuff was secured to the fascia using the 0 Vicryl pursestring that was placed. The catheter was tunneled to an exit site in the left lateral lower quadrant. The catheter was connected to the 1 L bag of saline and approximated 800 mL of saline was easily introduced into the peritoneal cavity. The fluid was then allowed to evacuate. The majority of the fluid was returned. The anterior rectus fascia was then reapproximated using a running 0 Vicryl stitch. The subcutaneous tissues reprepped using 3-0 Vicryl sutures and the skin using 4-0 Monocryl sutures. The outpatient dialysis adapter was applied to the end of the catheter. A sterile dressings then applied after skin glue was placed over the incision. DISPOSITION: Stable to recovery room
[2021-02-09 08:51] VITALS: TEMP 97.5
[2021-02-09 09:20] VITALS: RESP 16
[2021-02-09] MEDS ORDERED: HYDROcodone/APAP 7.5-325MG 1 EACH TAB ONE (09:58)
[2021-02-09] MEDS ORDERED: HYDROcodone/APAP 7.5-325MG 1 EACH TAB PO ONE (09:59)
[2021-02-09 10:03] VITALS: BP 102/66; PULSE 68
== END 2021-02-09 10:29 | disposition home or self-care (01) ==
LOC: OR 06:12
PROVIDERS: ATTEND Surgery
DX: N18.6 End stage renal disease (principal); G47.33 Obstructive sleep apnea (adult) (pediatric); J44.9 Chronic obstructive pulmonary disease, unspecified; F17.210 Nicotine dependence, cigarettes, uncomplicated; Z88.8 Allergy status to other drugs, medicaments and biological substances; Z86.19 Personal history of other infectious and parasitic diseases; Z79.899 Other long term (current) drug therapy; Z79.890 Hormone replacement therapy
CPT/HCPCS: 49421; C1752; J2250; J1100; J0690; J2405; J2001; J3010; J2704; J1644

== ENCOUNTER → 2021-02-18 | Outpatient (CLI) | payer OTHER ==
--- NOTE | 2021-02-18 11:26 | BD ---
EXAMINATION TYPE: Axial Bone Density DATE OF EXAM: 02/18/2021 COMPARISON: 03.13.2013 CLINICAL HISTORY: 56 YR OLD FEMALE......ICD-10 CODE: Z78.0 POST MENOPAUSAL Height: 62.4 Weight: 185 FRAX RISK QUESTIONS: Current Tobacco Use: YES RISK FACTORS HISTORY OF: Postmenopausal woman: YES AT ABOUT 49 YRS OLD Hyperparathyroidism: NO Adrenal Insufficiency: NO MEDICATIONS: Thyroid Medications: YES, SYNTHROID FOR ABOUT 1 YR Additional Medications: REFLUX MED, VIT D AND CALCIUM, Additional History: KIDNEY DISEASE, ON DIALYSIS, CURRENTLY, PORT AT RT BREAST FOR DIALYSIS, AND NIRAV TER IN ABDOMEN EXAM MEASUREMENTS: Bone mineral densitometry was performed using the [employer] System. Bone mineral density as measured about the Lumbar spine is: ----- L1-L4(G/cm2): 1.077 T Score Values are as follows: ----- L1: -0.3 ----- L2: -0.4 ----- L3: -0.7 ----- L4: -2.0 ----- L1-L4: -0.9 Bone mineral density has: Decreased -15.0% since study of: 03.13.2013 Bone mineral density about the R hip (g/cm2): 0.946 Bone mineral density about the L hip (g/cm2): 0.942 T Score values are as follows: -----R Neck: -1.3 -----L Neck: -1.2 -----R Total: -0.5 -----L Total: -0.5 Bone mineral density has: Decreased -13.2% since study of: 03.13.2013 FRAX%s: THERE IS A 5.9% CHANCE FOR A MAJOR OSTEOPOROTIC FX AND A 0.6% FOR HIP.....PROBABILITY FOR FX IN 10 YRS TIME IMPRESSION: Osteopenia (T Score between -2.5 and -1) is now present femoral neck level both hips. Bone density de creased or diminished from prior. There is slightly increased risk of fracture and the patient may be considered for treatment. Re-Screen 2-5 years. NOTE: T-SCORE=SD OF THE YOUNG ADULT MEAN.
--- NOTE | 2021-02-19 11:16 | MM ---
Reason for exam: screening (asymptomatic). Last mammogram was performed 2 years and 1 month ago. History: Patient is postmenopausal. Physical Findings: A clinical breast exam by your physician is recommended on an annual basis and results should be correlated with mammographic findings. MG Screening Mammo w CAD Bilateral CC and MLO view(s) were taken. Prior study comparison: February 01, 2019, bilateral MG screening mammo w CAD. September 14, 2017, bilateral MG screening mammo w CAD. There are scattered fibroglandular densities. There is no discrete abnormality. Bilateral skin lesions. ASSESSMENT: Negative, BI-RAD 1 RECOMMENDATION: Routine screening mammogram of both breasts in 1 year.
== END | disposition home or self-care (01) ==
LOC: RADMAMWWP 10:13
PROVIDERS: ATTEND Internal Medicine
DX: Z12.31 Encounter for screening mammogram for malignant neoplasm of breast (principal); Z13.820 Encounter for screening for osteoporosis; M85.89 Other specified disorders of bone density and structure, multiple sites; Z78.0 Asymptomatic menopausal state
CPT/HCPCS: 77067; 77080

== ENCOUNTER → 2021-03-12 | Outpatient (CLI) | payer OTHER ==
[2021-03-12 20:02] LABS: Basophils # (A) 0.03 X 10*3/uL (0.00-0.10); Basophils % (A) 0.5 %; Eosinophils # (A) 0.13 X 10*3/uL (0.04-0.35); Eosinophils % (A) 2.4 %; HCT 31.6 % (37.2-46.3); HGB 10.5 g/dL (12.0-15.0); Lymphocytes # (A) 1.84 X 10*3/uL (0.90-5.00); Lymphocytes % (A) 33.3 %; MCH 31.8 pg (27.0-32.0); MCHC 33.2 g/dL (32.0-37.0); MCV 95.8 fL (80.0-97.0); Mean Platelet Volume 11.4 fL (9.5-12.2); Monocytes # (A) 0.42 X 10*3/uL (0.20-1.00); Monocytes % (A) 7.6 %; Platelet Count 127 X 10*3/uL (140-440); RDW 14.6 % (11.5-14.5); WBC 5.53 X 10*3/uL (4.50-10.00)
[2021-03-12 20:13] LABS: INR 1.01 (0.90-1.11)
[2021-03-12 22:39] LABS: African American GFR (CKD) 13.7 (60.0-200.0); Albumin 3.9 g/dL (3.80-4.90); Albumin/Globulin Ratio 1.18 (1.60-3.17); Anion Gap 11.2 mmol/L (4.00-12.00); BUN/Creat Ratio 8.25 Ratio (12.00-20.00); Calcium 9.2 mg/dL (8.7-10.3); Carbon Dioxide 25.8 mmol/L (21.6-31.8); Globulin 3.3 g/dL (1.6-3.3); Non-African American GFR(CKD) 11.9 (60.0-200.0); Potassium 3.7 mmol/L (3.5-5.5); Total Bilirubin 0.5 mg/dL (0.2-1.2); Total Protein 7.2 g/dL (6.2-8.2)
== END | disposition home or self-care (01) ==
LOC: LABWHC1 12:26
PROVIDERS: ATTEND Physician Assistant
DX: K74.60 Unspecified cirrhosis of liver (principal)
CPT/HCPCS: 36415; 80053; 82105; 85025; 85610

== ENCOUNTER → 2022-05-24 | Outpatient (CLI) | payer OTHER ==
--- NOTE | 2022-05-24 12:57 | XR ---
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 COMPARISON: 07/19/2017 TECHNIQUE: Frontal, lateral , bilateral oblique and coned in L5-S1 lateral views of the spine. FINDINGS: Mild multilevel disc degeneration changes are seen throughout the spine. There is straighte emmy alignment. Neural foramen are grossly patent. Spinal canal is patent. Mild disc space narrowing a t L5-S1. Visualized bowel gas pattern is unremarkable. IMPRESSION: Mild degenerative disc degeneration changes and facet joint arthropathy throughout the spine.
== END | disposition home or self-care (01) ==
LOC: RADXRMAIN 12:23
PROVIDERS: ATTEND Internal Medicine
DX: M47.16 Other spondylosis with myelopathy, lumbar region (principal); M51.06 Intervertebral disc disorders with myelopathy, lumbar region; M48.07 Spinal stenosis, lumbosacral region
CPT/HCPCS: 72110

== ENCOUNTER → 2022-06-03 | Outpatient (CLI) | payer OTHER ==
--- NOTE | 2022-06-11 17:45 | MM ---
Reason for Exam: Screening (asymptomatic). Last mammogram was performed 1 year(s) and 4 month(s) ago. Patient History: Menarche at age 14. First Full-Term at age 21. Postmenopausal. Risk Values: Daily 5 year model risk: 1.1%. NCI Lifetime model risk: 7.2%. Prior Study Comparison: 09/14/2017 Bilateral Screening Mammogram, [facility]. 02/01/2019 Bilateral Screening Mammogram, [facility]. 02/18/2021 Bilateral Screening Mammogram, [facility]. Tissue Density: The breast tissue is almost entirely fat. Findings: Analyzed By CAD. There is no suspicious group of microcalcifications or new suspicious mass in either breast. Overall Assessment: Negative, BI-RAD 1 Management: Screening Mammogram of both breasts in 1 year. A clinical breast exam by your physician is recommended on an annual basis and results should be correlated with mammographic findings. Electronically signed and approved by: Teo Arredondo DO
== END | disposition home or self-care (01) ==
LOC: RADMAMWWP 16:20
PROVIDERS: ATTEND Internal Medicine
DX: Z12.31 Encounter for screening mammogram for malignant neoplasm of breast (principal); Z78.0 Asymptomatic menopausal state
CPT/HCPCS: 77067

== ENCOUNTER → 2022-07-09 | Outpatient (CLI) | payer OTHER ==
--- NOTE | 2022-07-09 10:54 | CTL ---
EXAMINATION TYPE: CT Low Dose Lung DATE OF EXAM ORDERED: 07/09/2022 HISTORY: 57-year-old female C12.2, screening for lung cancer, smoker for 30+ years. Lung cancer scree [place] CT DLP: [address] CTDI: 3.41 mGy Automated exposure control for dose reduction was used. SCREENING VISIT: Baseline COMPARISON: 03/10/2020 TECHNIQUE: Low dose computed tomography scan was performed through the chest with coronal and sagitta l reconstructions. CT DIAGNOSTIC QUALITY: Satisfactory FINDINGS: The heart is normal size without pericardial effusion. Borderline ectatic ascending aorta 3.7 cm, unchanged. Bovine configuration to the aortic arch. No thoracic lymphadenopathy by CT size criteria. Mild to moderate diffuse bronchial wall thickening No consolidation or pleural effusion. No suspicious larger than 4 mm pulmonary nodule identified. Visualized upper abdomen shows contracted nodularity of the liver suggesting cirrhosis. Spleen border line enlarged at 13.8 cm. There is mild perihepatic and perisplenic ascites fluid noted. Limited by l arge body habitus. Bones: Mild scattered degenerative disc disease mid to lower thoracic spine. IMPRESSION: Bronchial wall thickening suggests acute or chronic bronchitis. No suspicious pulmonary nodules seen. Note upper abdominal findings below which warrant further workup and management. CT LUNG RAD AND CT CHEST RECOMMENDATION: Lung-Rad 1 Negative: Continue annual screening with LDCT in 12 months. Recommend smoking cessation. S Modifier (other clinically significant findings): S, further workup advised for underlying cirrhosi s and portal venous hypertension given mild upper abdominal ascites.
== END | disposition home or self-care (01) ==
LOC: RADCTMAIN 09:40
PROVIDERS: ATTEND Internal Medicine
DX: Z12.2 Encounter for screening for malignant neoplasm of respiratory organs (principal); K74.60 Unspecified cirrhosis of liver; K76.6 Portal hypertension; R18.8 Other ascites; Z87.891 Personal history of nicotine dependence
CPT/HCPCS: 71271

== ENCOUNTER 2023-03-02 09:02 | Day surgery (SDC) | payer OTHER ==
[2023-02-28 14:33] VITALS: BMI 41.4
[~2023-03-02 09:02] MED LIST changes: -ACETAMINOPHEN TAB 500 MG TAB PO PRN; -DEXAMETHASONE SOD PHOSPHATE 4 MG/ML 1 ML VIAL IV ONE; -HEPARIN SODIUM,PORCINE/PF 5,000 UNIT/0.5 ML SYRINGE SQ PRN; +LIDOCAINE 1% (10MG/ML) FOR IV START INTRADERMA PRN; -MIDAZOLAM 2 MG/2 ML VIAL IV PRN; -ONDANSETRON 4 MG/2 ML VIAL IVP ONE; +ONDANSETRON 4 MG/2 ML VIAL IVP PRN; -SCOPOLAMINE 1.5MG/72HR PATCH TRANSDERM ONE
[2023-03-02] MEDS ORDERED: LACTATED RINGERS 1,000 ML IV ONE (09:25)
[2023-03-02 09:44] VITALS: TEMP 97
[2023-03-02] MEDS ORDERED: PROPOFOL 10 MG/ML 20 ML VIAL IV ONE (10:00)
--- NOTE | 2023-03-02 10:30 | P.PCN ---
Date of Procedure: 03/02/23 Procedure(s) Performed: BRIEF HISTORY: Patient is a 58-year-old pleasant white female scheduled for an elective colonoscopy as a part of screening for colon cancer. PROCEDURE PERFORMED: Colonoscopy. PREOPERATIVE DIAGNOSIS: Screening for colon cancer. IV sedation per Anesthesia. PROCEDURE: After informed consent was obtained, the patient, was brought into the endoscopy unit. IV sedation was administered by Anesthesia under continuous monitoring. Digital rectal examination was normal. Initially the Olympus CF-160 flexible video colonoscope was then inserted in the rectum, gradually advanced into the cecum without any difficulty. Careful examination was performed as the scope was gradually being withdrawn. Ileocecal valve and the appendiceal orifice were visualized and appeared normal. Prep was poor and several areas of the colon. Thorough irrigation was performed. Mucosa of the cecum, ascending colon, transverse colon, descending colon, sigmoid colon, and rectum appeared normal. Retroflexion was performed in the rectum and no lesions were seen. The patient tolerated the procedure well. IMPRESSION: Normal-appearing colon from rectum to cecum with no evidence of colorectal neoplasia. Poor prep in several areas of the colon surgeries including adequate visualization RECOMMENDATIONS: Findings of this examination were discussed with the patient as well as her family. She was advised to have a repeat screening colonoscopy in 5 years..
[2023-03-02 10:36] VITALS: RESP 16
[2023-03-02 10:55] VITALS: BP 113/71; PULSE 63
== END 2023-03-02 11:07 | disposition home or self-care (01) ==
LOC: ORWHC2ENDO 09:02
PROVIDERS: ATTEND Internal Medicine Gastroenterology
DX: Z12.11 Encounter for screening for malignant neoplasm of colon (principal); I10 Essential (primary) hypertension; J44.9 Chronic obstructive pulmonary disease, unspecified; F17.200 Nicotine dependence, unspecified, uncomplicated; K21.9 Gastro-esophageal reflux disease without esophagitis; K74.60 Unspecified cirrhosis of liver; Z79.899 Other long term (current) drug therapy
CPT/HCPCS: 45378; J2704

== ENCOUNTER → 2023-06-08 | Outpatient (CLI) | payer OTHER ==
--- NOTE | 2023-06-08 14:22 | CTL ---
EXAMINATION TYPE: CT Low Dose Lung DATE OF EXAM: 06/08/2023 12:28 PM CLINICAL INDICATION:Female, 58 years old with history of Z12.2 ENCNTR SCREEN FOR MALIGNANT NEOPLASM O F RESP; nicotine dependence , history of tobacco use. COMPARISON: 07/09/2022 TECHNIQUE: Multiple axial non-contrast scans were obtained from approximately the lung apices through the upper abdomen. Coronal and sagittal reformatted images were obtained. Low dose technique was uti lized. CT DLP: 133.6 mGycm, Automated exposure control for dose reduction was used. CT Contrast: Contrast used: None Oral contrast used: None FINDINGS: ======== Lack of intravenous contrast and low dose technique limits the evaluation of the vascular and soft ti ssue structures. LUNGS: No evidence of pulmonary fibrosis. No evidence of focal consolidation, pneumothorax or pleural effusion. Mild emphysema changes are present. Nodules: RUL: None. RML: None. RLL: Superior segment tiny 2 mm pulmonary nodule versus calcified granuloma series 4 image 101, s table MISBAH: None. LLL: None. AIRWAY: Patent and unremarkable. HEART: Size within normal limits. MEDIASTINUM: No gross evidence of adenopathy. VASCULATURE: No aortic aneurysm. MUSCULOSKELETAL: No acute osseous abnormalities SOFT TISSUES/LYMPH NODES: Unremarkable. LOWER NECK: No significant findings. UPPER ABDOMEN: Trace fluid is seen in the upper abdomen. There is nodular contour to liver. IMPRESSION: 1. No clinically significant pulmonary nodules. 2. Hepatic cirrhosis with trace ascites visualized. CT LUNG RAD AND CT CHEST RECOMMENDATION: Lung-Rad 2 Benign Appearance or Behavior: Continue annual sc reening with LDCT in 12 months. S Modifier (other clinically significant findings): None Recommend smoking cessation (if current smoker), or continuation of smoking cessation (if prior smoke r). Annual screening for lung cancer with low-dose computed tomography is recommended in adults ages 55 to 77 years who have a 30 pack-year smoking history and currently smoke or have quit within the pa st 15 years. Screening should be discontinued once a person has not smoked for 15 years or develops a health problem that substantially limits life expectancy or the ability or willingness to have curat sadie lung surgery. Lung rads 2021 [email or web address]
== END | disposition home or self-care (01) ==
LOC: RADCTMAIN 11:45
PROVIDERS: ATTEND Internal Medicine
DX: Z12.2 Encounter for screening for malignant neoplasm of respiratory organs (principal); K74.69 Other cirrhosis of liver; F17.210 Nicotine dependence, cigarettes, uncomplicated
CPT/HCPCS: 71271

== ENCOUNTER → 2024-03-08 | Outpatient (CLI) | payer MEDICARE ==
--- NOTE | 2024-03-10 19:06 | NM ---
EXAMINATION TYPE: NM parathyroid DATE OF EXAM: 03/08/2024 COMPARISON: NONE CLINICAL INDICATION: Female, 59 years old with history of E21.5 PARATHROID ABNOMALITY; TECHNIQUE: Following administration of 22.2 mCi Tc99m Sestamibi. Anterior projection images of the neck and ches t were obtained 5 minutes and 3 hours post injection FINDINGS: Thyroid tracer washout: Delayed images demonstrate near-complete tracer washout from the thyroid. Parathyroid uptake: None. The two-hour delayed images do not demonstrate any focal abnormal persisten t uptake in the region of the parathyroid glands to suggest parathyroid adenoma. Normal uptake: There is physiological tracer uptake in the myocardium, liver, salivary glands, and th yroid gland. IMPRESSION: Normal parathyroid imaging study. No evidence for mediastinal uptake to suggest mediastinal parathyro id adenoma
== END | disposition home or self-care (01) ==
LOC: RADNMMAIN 10:48
PROVIDERS: ATTEND Internal Medicine
DX: E21.5 Disorder of parathyroid gland, unspecified (principal)
CPT/HCPCS: 78070; A9500

== ENCOUNTER → 2024-06-11 | Outpatient (CLI) | payer MEDICARE, OTHER ==
--- NOTE | 2024-06-12 12:27 | CTL ---
EXAMINATION TYPE: CT Low Dose Lung DATE OF EXAM ORDERED: 06/11/2024 HISTORY: 59-year-old female current smoker with 45 pack-year history. Lung cancer screening. Z12.2 L SKYLER CA SCREENING F17.[address] DLP: 94.[address] CTDI: 2.6 mGy Automated exposure control for dose reduction was used. SCREENING VISIT: Annual follow-up COMPARISON: 06/08/2023 TECHNIQUE: Low dose computed tomography scan was performed through the chest at 1 mm thick sections a nd reconstructed images in multiple planes at 1 mm and [address] DIAGNOSTIC QUALITY: Satisfactory FINDINGS: The heart is normal size without pericardial effusion. Ectatic ascending aorta 3.7 cm. Minimal episodic arch calcifications. Bovine configuration to the aor tic arch. No thoracic lymphadenopathy by CT size criteria. Mild diffuse bronchial wall thickening. Minimal emphysematous change. Some minimal strandy atelectasi s in the lower lungs.. Tiny 3 mm subpleural pulmonary nodule lateral left midlung, axial image 146. Its location along the m ajor fissure suggests a tiny intrafissural lymph node. No suspicious pulmonary nodules are seen. No c onsolidation or pleural effusion. Visualized upper abdomen shows mild perihepatic and perisplenic ascites. There may be subtle contour nodularity of the liver. Findings were present previously as well. Bones: No osseous destructive process. IMPRESSION: 1. LungRADS 2, benign. No suspicious pulmonary nodules. 2. Minimal emphysematous change. 3. Mild upper abdominal ascites redemonstrated. Possible underlying cirrhosis. Refer the patient for further workup if no known diagnosis. CT LUNG RAD AND CT CHEST RECOMMENDATION: Lung-Rad 2 Benign Appearance or Behavior: Continue annual sc reening with LDCT in 12 months. S Modifier (other clinically significant findings): S, abdominal ascites. Refer the patient for furth er workup if no known diagnosis. Possible underlying cirrhosis. [facility], , 06/12/2024 12:25 PM
== END | disposition home or self-care (01) ==
LOC: RADCTMAIN 12:32
PROVIDERS: ATTEND Internal Medicine
DX: Z12.2 Encounter for screening for malignant neoplasm of respiratory organs (principal); J43.9 Emphysema, unspecified; R18.8 Other ascites; F17.210 Nicotine dependence, cigarettes, uncomplicated
CPT/HCPCS: 71271

== ENCOUNTER → 2025-02-01 | Outpatient (CLI) | payer MEDICARE, OTHER ==
--- NOTE | 2025-02-01 15:01 | US ---
EXAMINATION TYPE: US carotid duplex BILAT DATE OF EXAM: 02/01/2025 COMPARISON: NONE CLINICAL INDICATION: Female, 60 years old with history of I65.23 CAROTID STENOSIS; stenosis Additional History: .... TECHNIQUE: Grayscale, color Doppler and spectral Doppler evaluation of the bilateral carotid systems and vertebral arteries. Indirect Doppler criteria was utilized. FINDINGS: EXAM MEASUREMENTS: RIGHT: Peak Systolic Velocity (PSV) cm/sec ----- Right CCA: 68.2 ----- Right ICA: 100 ----- Right ECA: 70.9 ICA/CCA ratio: 1.5 RIGHT: End Diastole cm/sec ----- Right CCA: 28.9 ----- Right ICA: 45.1 ----- Right ECA: 0 LEFT: Peak Systolic Velocity (PSV) cm/sec ----- Left CCA: 78.3 ----- Left ICA: 116.7 ----- Left ECA: 65.1 ICA/CCA ratio: 1.5 LEFT: End Diastole cm/sec ----- Left CCA: 21.4 ----- Left ICA: 49.7 ----- Left ECA: 0 VERTEBRALS (direction of flow): Right Vertebral: Antegrade Left Vertebral: Antegrade Rhythm: Normal [employer] NOTES: No significant stenosis seen Color Doppler imaging shows patency with blood flow throughout the carotid artery. Spectral waveforms are within normal limits. IMPRESSION: Right: No hemodynamically significant stenosis. Left: No hemodynamically significant stenosis. Criteria for Assigning % of Stenosis / Diameter reduction (Estimation based on the indirect measurements of the internal carotid artery velocities (ICA PSV). 1. Normal (no stenosis)=ICA PSV < 180 cm/s: ratio < 2.0: ICA EDV<40 cm/s. 2. Less than 50% stenosis=ICA PSV < 180 cm/s: ratio < 2.0: ICA EDV<40 cm/s. 3. 50 to 69% stenosis=ICA PSV of 180 to 230 cm/s: ration 2.0 ? 4.0: ICA EDV 40-100 cm/s. PSV 125-180 cm/sec and ICA/CCA PSV Ratio ? 2.0 is also consistent with 50-69% stenosis 4. Greater than 70% stenosis to near occlusion= ICA PSV > 230 cm/s: ratio > 4.0: ICA EDV > 100 cm/s. 5. Near occlusion= ICA PSV velocities may be low or undetectable: variable ratio and ICA EDV. 6. Total occlusion=unable to detect flow. [facility], , 02/01/2025 2:59 PM
--- NOTE | 2025-02-01 15:20 | BD ---
EXAMINATION TYPE: Axial Bone Density DATE OF EXAM: 02/01/2025 CLINICAL HISTORY: 60 years old Female. ICD-10 CODE: M85.851 OSTEOPENIA , Additional History: Height: 63 Weight: 218.1 FRAX RISK QUESTIONS: Alcohol (3 or more units per day): no Family History (Parent hip fracture): no Glucocorticoids (More than 3mos): no (Ex: prednisone, prednisolone, methylprednisolone, dexamethasone, and hydrocortisone). History of Fracture in Adulthood: no Secondary Osteoporosis: 1. Type 1 Diabetes: no 2. Hyperthyroidism: no 3. Menopause before 45: no 4. Malnutrition: no 5. Chronic liver disease: yes Rheumatoid Arthritis: no Current Tobacco Use: yes RISK FACTORS HISTORY OF: Hip Fracture (Right/Left): no Spine Fracture: no History of Wrist Fracture: no Surgery to Spine/Hip(right/left)/Wrist (right/left): no MEDICATIONS: Thyroid Medications: Levothyroxine How Lon years Osteoporosis Medications: no EXAM MEASUREMENTS: Bone mineral densitometry was performed using the [facility] System. Bone mineral density as measured about the Lumbar spine is: ----- L1-L4(G/cm2): 1.228 T Score Values are as follows: ----- L1: 0.5 ----- L2: 0.7 ----- L3: 1.0 ----- L4: -0.5 ----- L1-L4: 0.4 Z Score Values are as follows: ----- L1: 1.0 ----- L2: 1.2 ----- L3: 1.5 ----- L4: -0.1 ----- L1-L4: 0.9 Bone mineral density has: increased 14.0 % since study of: 02/18/2021 Bone mineral density about the R hip (g/cm2): 0.969 Bone mineral density about the L hip (g/cm2): 0.948 T Score values are as follows: -----R Neck: -0.9 -----L Neck: -1.1 -----R Total: -0.3 -----L Total: -0.5 Z Score values are as follows: -----R Neck: -0.1 -----L Neck: -0.3 -----R Total: 0.1 -----L Total: -0.1 Bone mineral density has: increased1.5 % since study of: 02/18/2021 FRAX%s: The graph provided illustrates a 6.5% chance for a major osteoporotic fx and a 0.6% chance fo r the hips probability for fx in 10 years time. IMPRESSION: Osteopenia (T Score between -2.5 and -1). There is slightly increased risk of fracture and the patient may be considered for treatment. Re-Screen 2-5 years. NOTE: T-SCORE=SD OF THE YOUNG ADULT MEAN. [facility], , 02/01/2025 3:18 PM
--- NOTE | 2025-02-03 11:33 | CA ---
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 67 - 155 / 56 - 104 cm??? LV Systolic Volume MOD BP 33.4 cm??? 22 - 58 / 19 - 49 cm??? LV Ejection Fraction MOD BP 64.5 % >= 55 % LV Cardiac Index MOD BP 1542.8 cm???/min???m??? LV Diastolic Volume MOD 4C 81.4 cm??? LV Systolic Volume MOD 4C 32.9 cm??? LV Ejection Fraction MOD 4C 59.6 % LV Cardiac Index MOD 4C 1236.7 cm???/min???m??? LV Diastolic Length 4C 8.3 cm LV Systolic Length 4C 6.6 cm LV Diastolic Volume MOD 2C 100.4 cm??? LV Systolic Volume MOD 2C 32.0 cm??? LV Ejection Fraction MOD 2C 68.1 % LV Cardiac Index MOD 2C 1741.6 cm???/min???m??? LV Diastolic Length 2C 9.1 cm LV Systolic Length 2C 6.1 cm LA Volume 62.5 cm??? 18 - 58 / 22 - 52 cm??? LA Volume Index 28.9 cm???/m??? 16 - 28 cm???/m??? DOPPLER AV Peak Velocity 114.6 cm/s AV Peak Gradient 5.3 mmHg AV Mean Velocity 85.7 cm/s AV Mean Gradient 3.2 mmHg AV Velocity Time Integral 26.7 cm LVOT Peak Velocity 125.4 cm/s LVOT Peak Gradient 6.3 mmHg LVOT Velocity Time Integral 25.0 cm LVOT Stroke Volume 67.5 cm??? LVOT Stroke Volume Index 33.3 ml/m??? LVOT Cardiac Index 1719.8 cm???/min???m??? AV Area Cont Eq vti 2.5 cm??? AV Area Cont Eq pk 3.0 cm??? MV Area PHT 2.3 cm??? Mitral E Point Velocity 45.0 cm/s Mitral A Point Velocity 60.6 cm/s Mitral E to A Ratio 0.7 MV Deceleration Time 331.2 ms MV E' Velocity 4.6 cm/s Mitral E to MV E' Ratio 9.7 FINDINGS Left Ventricle Moderately increased left ventricular wall thickness. Left ventricular cavity size normal. Normal left ventricular systolic function with no obvious regional wall motion abnormalities. Left ventricular ejection fraction is estimated at 55-60 %. Normal left ventricular diastolic filling pattern. Right Ventricle Mild right ventricular dilatation. Right ventricular systolic pressure within normal limits. Right Atrium Normal right atrial size. Left Atrium Mildly increased left atrial volume. Mitral Valve Structurally normal mitral valve. No mitral stenosis, regurgitation or prolapse. Aortic Valve No aortic valve stenosis or regurgitation. Trileaflet aortic valve. Tricuspid Valve Structurally normal tricuspid valve. Mild tricuspid regurgitation. Pulmonic Valve Structurally normal pulmonic valve. Trace pulmonic regurgitation. Pericardium No pericardial effusion. Aorta Normal size aortic root and proximal ascending aorta. CONCLUSIONS LVEF 55 to 60% No obvious regional wall motion abnormality Moderate concentric LVH No significant valvular dysfunction Mild left atrial dilatation Previewed by: Dr Vinicio Issa (Electronically Signed) Final Date: 03 Feb 2025 11:32
--- NOTE | 2025-02-04 07:24 | MM ---
Reason for Exam: Screening (asymptomatic). Last mammogram was performed 2 year(s) and 8 month(s) ago. Patient History: Menarche at age 14. First Full-Term at age 21. Postmenopausal. Risk Values: Daily 5 year model risk: 1.2%. NCI Lifetime model risk: 6.7%. Prior Study Comparison: 02/01/2019 Bilateral Screening Mammogram, [facility]. 02/18/2021 Bilateral Screening Mammogram, [facility]. 06/03/2022 Bilateral MG screening mammo w CAD, [facility]. Tissue Density: There are scattered areas of fibroglandular density. Findings: Analyzed By CAD. There is a new 4 mm focal asymmetry in the anterior depth left breast on CC view not clearly seen on MLO view. Overall Assessment: Incomplete: need additional imaging evaluation, BI-RAD 0 Management: Diagnostic Mammogram of the left breast. Return for additional spot CC 3-D and 3-D true lateral views left breast. Patient should continue monthly self-breast exams. A clinical breast exam by your physician is recommended on an annual basis. This exam should not preclude additional follow-up of suspicious palpable abnormalities. Note on Daily scores and lifetime risk: 1. A Daily score greater than 3% is considered moderate risk. If this is the case, consider specialist referral to assess eligibility for a risk reducing agent. 2. If overall lifetime risk for the development of breast cancer is 20% or higher, the patient may qualify for future screening with alternating mammogram and breast MRI. [facility], , 02/04/2025 7:21 AM. Electronically signed and approved by: Toan Webster M.D.
== END | disposition home or self-care (01) ==
LOC: RADUSWWP 13:56
PROVIDERS: ATTEND Internal Medicine
DX: Z12.31 Encounter for screening mammogram for malignant neoplasm of breast (principal); I34.0 Nonrheumatic mitral (valve) insufficiency; R92.323 Mammographic fibroglandular density, bilateral breasts; I65.23 Occlusion and stenosis of bilateral carotid arteries; M85.852 Other specified disorders of bone density and structure, left thigh; I51.7 Cardiomegaly; Z78.0 Asymptomatic menopausal state
CPT/HCPCS: 77067; 77080; 93306; 93880

== ENCOUNTER → 2025-02-07 | Outpatient (CLI) | payer MEDICARE, OTHER ==
--- NOTE | 2025-02-07 13:14 | MM ---
Reason for Exam: Additional evaluation requested from prior study. Last screening mammogram was performed less than 1 month ago. Patient History: Menarche at age 14. First Full-Term at age 21. Postmenopausal. Risk Values: Daily 5 year model risk: 1.2%. NCI Lifetime model risk: 6.7%. Prior Study Comparison: 02/18/2021 Bilateral Screening Mammogram, [facility]. 06/03/2022 Bilateral MG screening mammo w CAD, [facility]. 02/01/2025 Bilateral MG screening mammo w CAD, [facility]. Tissue Density: Left: There are scattered areas of fibroglandular density. Findings: Analyzed By CAD. A 4 mm circumscribed mass middle depth upper aspect left breast persists on additional views. Overall Assessment: Incomplete: need additional imaging evaluation, BI-RAD 0 Management: Diagnostic Breast Ultrasound of the left breast. . Results were given to the patient verbally at the time of exam. Patient should continue monthly self-breast exams. A clinical breast exam by your physician is recommended on an annual basis. This exam should not preclude additional follow-up of suspicious palpable abnormalities. Note on Daliy scores and lifetime risk: 1. A Daily score greater than 3% is considered moderate risk. If this is the case, consider specialist referral to assess eligibility for a risk reducing agent. 2. If overall lifetime risk for the development of breast cancer is 20% or higher, the patient may qualify for future screening with alternating mammogram and breast MRI. [facility], , 02/07/2025 1:10 PM. Electronically signed and approved by: Toan Webster M.D.
--- NOTE | 2025-02-07 13:44 | USB ---
Patient History: Menarche at age 14. First Full-Term at age 21. Postmenopausal. Risk Values: Daily 5 year model risk: 1.2%. NCI Lifetime model risk: 6.7%. Technique: Method: Targeted. Prior Study Comparison: 02/18/2021 Bilateral Screening Mammogram, [facility]. 06/03/2022 Bilateral MG screening mammo w CAD, [facility]. 02/01/2025 Bilateral MG screening mammo w CAD, [facility]. Findings: The upper section of the breast of the left breast, the axilla of the left breast and the retroareolar of the left breast were scanned. Targeted ultrasound. A 10:00 position 7 cm distance from nipple. 6 x 5 x 7 mm oval hyperechoic lesion. At 1:00 position centimeter from nipple there is larger 11 x 6 x 9 mm oval hyperechoic mass. Findings favor benign etiology or lipomas. No definitive correlation with mammogram. Overall Assessment: Probably benign, BI-RAD 3 Management: Diagnostic Breast Ultrasound of the left breast in 6 months. Diagnostic Mammogram of the left breast in 6 months. No convincing ultrasound evidence for malignancy. Precautionary short-term follow-up advised. A clinical breast exam by your physician is recommended on an annual basis and results should be correlated with mammographic findings. This exam should not preclude additional follow-up of suspicious palpable abnormalities. Results were given to the patient verbally at the time of exam. [facility], , 02/07/2025 1:42 PM. Electronically signed and approved by: Toan Webster M.D.
== END | disposition home or self-care (01) ==
LOC: RADMAMWWP 12:47
PROVIDERS: ATTEND Internal Medicine
DX: R92.8 Other abnormal and inconclusive findings on diagnostic imaging of breast (principal); R92.322 Mammographic fibroglandular density, left breast; Z78.0 Asymptomatic menopausal state
CPT/HCPCS: 77061; 77065